=== PATIENT | male | born 1930 | race African-American/Black ===

== ENCOUNTER 2018-06-04 11:09 | Inpatient (IN) | payer MEDICAID, MEDICARE ==
[~2018-06-04] VITALS: Ht 185.4 cm; Wt 97.2 kg
[2018-06-04] VITALS (10 sets, daily range): BP systolic 167–211; BP diastolic 44–71
[~2018-06-04 11:09] MED LIST: AMLODIPINE BESY10 MG ORAL; BENAZEPRIL HCL20 MG ORAL; BETHANECHOL CHL25 MG ORAL; BRIMONIDINE TART5 ML BOTH EYES; DONEPEZIL HCL10 MG ORAL; DOXAZOSIN MESYLA1 MG ORAL; GLIMEPIRIDE4 MG ORAL; KLOR-CON M2020 MEQ ORAL; LEVEMIR100 UNIT/1 SUBQ; LUMIGAN2.5 ML BOTH EYES; METOPROLOL SUCC25 MG ORAL; MIRTAZAPINE7.5 MG ORAL; NEXIUM40 MG ORAL; OMEPRAZOLE20 M2 ORAL; PRANDIN2 MG ORAL; PROSCAR5 MG ORAL; TAMSULOSIN HCL0.4 MG ORAL
[2018-06-04 11:44] LABS: BASOPHILS % (AUTO) 0.9 % (0.0-2.0); EOSINOPHILS % (AUTO) 4.3 % (0.0-3.0); HEMATOCRIT 37.9 % (42.0-52.0); HEMOGLOBIN 12.5 G/DL (14.2-18.0); LYMPHOCYTES % (AUTO) 35.1 % (20.0-45.0); MEAN CORPUSCULAR VOLUME 88 FL (80-99); MONOCYTES % (AUTO) 12.5 % (1.0-10.0); NEUTROPHILS % (AUTO) 47.2 % (45.0-75.0); PLATELET COUNT 200 K/UL (150-450); RED BLOOD COUNT 4.33 M/UL (4.70-6.10); RED CELL DISTRIBUTION WIDTH 11.2 % (11.6-14.8); WHITE BLOOD COUNT 5.3 K/UL (4.8-10.8)
[2018-06-04 12:10] LABS: ANION GAP 8 mmol/L (5-15); BLOOD UREA NITROGEN 15 mg/dL (7-18); CALCIUM 8.7 MG/DL (8.5-10.1); CARBON DIOXIDE 30 MMOL/L (21-32); CHLORIDE 102 MMOL/L (98-107); CREATININE 1.5 MG/DL (0.55-1.30); POTASSIUM 3.8 MMOL/L (3.5-5.1); SODIUM 140 MMOL/L (136-145)
[2018-06-04 12:23] LABS: ALANINE AMINOTRANSFERASE 19 U/L (12-78); ALBUMIN 2.9 G/DL (3.4-5.0); ALBUMIN/GLOBULIN RATIO 0.6 (1.0-2.7); ALKALINE PHOSPHATASE 87 U/L (46-116); ASPARTATE AMINO TRANSFERASE 11 U/L (15-37); BILIRUBIN,TOTAL 0.2 MG/DL (0.2-1.0); CKMB 1.9 NG/ML (0.0-3.6); CREATINE KINASE 166 U/L (26-308)
--- NOTE | 2018-06-04 12:50 | Emergency Room Report ---
History of Present Illness General Chief Complaint: Hypertension Source: Patient, Medical Record, EMS Present Illness HPI Patient present with complaints of mild headache Also reported ear pain Patient was found to be hypertensive and brought to the emergency room Denies any neck pain or photophobia patient does have underlying dementia does limit the history of present illness Currently denies any chest pain denies any vomiting or diarrhea Allergies: Coded Allergies: No Known Allergies (Unverified , 05/27/15) Patient History Limited by: medical condition Past Medical History: see triage record Pertinent Family History: unable to obtain Reviewed Nursing Documentation: PMH: Agreed; PSxH: Agreed Nursing Documentation-PMH Hx Cardiac Problems: Yes Hx Hypertension: Yes Hx Diabetes: Yes Hx Cancer: No Hx Gastrointestinal Problems: No Hx Dialysis: No - Chronic Kidney Disease, UTI Hx Neurological Problems: No Review of Systems All Other Systems: negative except mentioned in HPI Physical Exam Vital Signs Date Time Temp Pulse Resp B/P (MAP) Pulse Ox O2 Delivery O2 Flow Rate FiO2 06/04/18 11:10 98.2 58 16 201/68 97 Room Air Sp02 EP Interpretation: reviewed, normal General Appearance: no apparent distress Head: normocephalic, atraumatic Eyes: bilateral eye PERRL, bilateral eye EOMI ENT: normal pharynx, no angioedema Neck: supple Respiratory: lungs clear, no respiratory distress, no retraction Cardiovascular #1: regular rate, rhythm Gastrointestinal: non tender, soft Genitourinary: no CVA tenderness Musculoskeletal: other - No obvious focal deficit Neurologic: responsive - To verbal and physical stimuli, mild confusion with GCS of 14 Skin: normal color, no rash, other - It was reported by paramedics and possibly the staff that the patient had bedbugs upon pickup I cannot visualize anything here Medical Decision Making Diagnostic Impression: Primary Impression: Hypertensive urgency, malignant ER Course Patient is a fairly complex patient with multiple differential to consideration including but not limited to cardiac cardiopulmonary and vascular emergencies Patient's initial workup is fairly benign blood pressure was addressed in the emergency room Given the patient's malignant presentation and persistent hypertension He will require further inpatient care Labs Test 06/04/18 11:30 06/05/18 05:25 White Blood Count 5.3 K/UL (4.8-10.8) 6.4 K/UL (4.8-10.8) Red Blood Count 4.33 M/UL (4.70-6.10) 4.04 M/UL (4.70-6.10) Hemoglobin 12.5 G/DL (14.2-18.0) 11.6 G/DL (14.2-18.0) Hematocrit 37.9 % (42.0-52.0) 35.0 % (42.0-52.0) Mean Corpuscular Volume 88 FL (80-99) 87 FL (80-99) Mean Corpuscular Hemoglobin 28.9 PG (27.0-31.0) 28.7 PG (27.0-31.0) Mean Corpuscular Hemoglobin Concent 33.1 G/DL (32.0-36.0) 33.1 G/DL (32.0-36.0) Red Cell Distribution Width 11.2 % (11.6-14.8) 11.3 % (11.6-14.8) Platelet Count 200 K/UL (150-450) 196 K/UL (150-450) Mean Platelet Volume 8.8 FL (6.5-10.1) 8.7 FL (6.5-10.1) Neutrophils (%) (Auto) 47.2 % (45.0-75.0) 54.4 % (45.0-75.0) Lymphocytes (%) (Auto) 35.1 % (20.0-45.0) 30.9 % (20.0-45.0) Monocytes (%) (Auto) 12.5 % (1.0-10.0) 10.8 % (1.0-10.0) Eosinophils (%) (Auto) 4.3 % (0.0-3.0) 3.3 % (0.0-3.0) Basophils (%) (Auto) 0.9 % (0.0-2.0) 0.7 % (0.0-2.0) Sodium Level 140 MMOL/L (136-145) 142 MMOL/L (136-145) Potassium Level 3.8 MMOL/L (3.5-5.1) 3.7 MMOL/L (3.5-5.1) Chloride Level 102 MMOL/L (98-107) 106 MMOL/L (98-107) Carbon Dioxide Level 30 MMOL/L (21-32) 30 MMOL/L (21-32) Anion Gap 8 mmol/L (5-15) 6 mmol/L (5-15) Blood Urea Nitrogen 15 mg/dL (7-18) 17 mg/dL (7-18) Creatinine 1.5 MG/DL (0.55-1.30) 1.5 MG/DL (0.55-1.30) Estimat Glomerular Filtration Rate mL/min (>60) mL/min (>60) Glucose Level 272 MG/DL (74-106) 120 MG/DL (74-106) Calcium Level 8.7 MG/DL (8.5-10.1) 8.4 MG/DL (8.5-10.1) Total Bilirubin 0.2 MG/DL (0.2-1.0) 0.2 MG/DL (0.2-1.0) Aspartate Amino Transf (AST/SGOT) 11 U/L (15-37) 12 U/L (15-37) Alanine Aminotransferase (ALT/SGPT) 19 U/L (12-78) 19 U/L (12-78) Alkaline Phosphatase 87 U/L (46-116) 74 U/L (46-116) Total Creatine Kinase 166 U/L (26-308) Creatine Kinase MB 1.9 NG/ML (0.0-3.6) Creatine Kinase MB Relative Index 1.1 Troponin I 0.019 ng/mL (0.000-0.056) Total Protein 8.1 G/DL (6.4-8.2) 7.3 G/DL (6.4-8.2) Albumin 2.9 G/DL (3.4-5.0) 2.7 G/DL (3.4-5.0) Globulin 5.2 g/dL 4.6 g/dL Albumin/Globulin Ratio 0.6 (1.0-2.7) 0.6 (1.0-2.7) Lipase 150 U/L (73-393) C-Reactive Protein, Quantitative 0.6 mg/dL (0.00-0.90) Rhythm Strip Diag. Results EP Interpretation: yes Rate: 67 Rhythm: NSR, no PVC's, no ectopy Last Vital Signs Date Time Temp Pulse Resp B/P (MAP) Pulse Ox O2 Delivery O2 Flow Rate FiO2 06/04/18 12:47 72 200/62 11/20/18 11:15 18 Room Air 06/04/18 11:15 97.1 100 Status: improved Disposition: ADMITTED INPATIENT Condition: Serious Referrals: Aliyah Miller MD (PCP) Aliyah Christianson DO Jun 04, 2018 12:50
[2018-06-04] MEDS ORDERED: cefTRIAXone 1 GM in NS 55 ML IVPB ONE (14:30)
--- NOTE | 2018-06-04 19:00 | Consultation ---
DATE OF CONSULTATION: 06/04/2018 INFECTIOUS DISEASES CONSULTATION CONSULTING PHYSICIAN: Viktor Miranda M.D. PRIMARY ATTENDING PHYSICIAN: Aliyah Miller M.D. REASON FOR CONSULTATION: Mastoiditis, otitis in the right ear. HISTORY OF PRESENT ILLNESS: This is an 88-year-old male admitted today from a group home facility. The patient was transferred to the hospital because of hypertension. The patient does have on and off discharge from right ear. He had a previous admission to the hospital in March 2018. At that time, there was CT scan evidence of right-sided mastoiditis and got treatment for unknown period. In the hospital, he was on Levaquin. 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 PAST MEDICAL HISTORY: Significant for diabetes mellitus, hypertension, chronic kidney disease, BPH, depression. ALLERGIES: No known drug allergies. MEDICATIONS: He got Norvasc in the ER and getting other medication from nursing facility including blood pressure/hypertension medication and insulin. SOCIAL HISTORY: [facility] resident. Single. He states that they had a son who 6 months ago and has another living son. No history of alcohol, drug abuse, or smoking. REVIEW OF SYSTEMS: No fever. No chills. No headache. On and off discharge from right ear. No pain in the ear right now. He seems to have decreased hearing. The patient has no chest pain, no coughing, no shortness of breath. No nausea. No vomiting. No problem passing urine at this time, but wears diapers. The patient usually uses wheelchair and mostly is wheelchair-bound. PHYSICAL EXAMINATION: VITAL SIGNS: Temperature 97.1, pulse 52, blood pressure 182/61. GENERAL APPEARANCE: No acute distress. HEAD AND NECK: [place] conjunctivae. No oral lesion. Some secretion in the right ear. No significant erythema. HEART: Bradycardic. LUNGS: Clear. ABDOMEN: Soft and nontender. EXTREMITIES: He has no edema. NEUROLOGIC: Awake, alert, verbal, obeys commands. No focal signs. Some hearing loss. LABORATORY AND DIAGNOSTIC DATA: WBC 5.3, hemoglobin 12.5, hematocrit 37.9, platelet 200,000. Sodium 140, potassium 3.8, chloride 102, bicarbonate 30, BUN 15, creatinine 1.5, glucose is 202. IMPRESSION: Mastoiditis, seems to be chronic. The patient has no acute symptoms. He has no fever, no leukocytosis. He seems also to have chronic otitis with some secretion. He has hypertension that is not controlled. He has chronic kidney disease, BPH, diabetes mellitus, history of depression. RECOMMENDATIONS: I gave a dose of ceftriaxone in the ER. Get p.o. antibiotic in the floor. Suggest ENT evaluation of further management. At the end of my exam, I thank Dr. Miller for involving me in the care of this patient. Viktor Miranda M.D. DR: Munir JOB#: [id number] CC: BENY
[2018-06-04] MEDS ORDERED: Tamsulosin 0.4mg cap ORAL SCH (21:00)
[2018-06-04] MEDS: Metoprolol 25mg tab ORAL SCH (21:00)
[2018-06-04] MEDS: NovoLOG Insulin Flexpen SUBQ SCH (21:52)
[2018-06-05] VITALS: BP 126/84
[2018-06-05 06:28] LABS: BASOPHILS % (AUTO) 0.7 % (0.0-2.0); EOSINOPHILS % (AUTO) 3.3 % (0.0-3.0); HEMOGLOBIN 11.6 G/DL (14.2-18.0); LYMPHOCYTES % (AUTO) 30.9 % (20.0-45.0); MEAN CORPUSCULAR VOLUME 87 FL (80-99); MONOCYTES % (AUTO) 10.8 % (1.0-10.0); NEUTROPHILS % (AUTO) 54.4 % (45.0-75.0); PLATELET COUNT 196 K/UL (150-450); RED BLOOD COUNT 4.04 M/UL (4.70-6.10); RED CELL DISTRIBUTION WIDTH 11.3 % (11.6-14.8); WHITE BLOOD COUNT 6.4 K/UL (4.8-10.8)
[2018-06-05] MEDS: NovoLOG Insulin Flexpen SUBQ SCH ×4 (06:28→21:36)
[2018-06-05 07:02] LABS: ALANINE AMINOTRANSFERASE 19 U/L (12-78); ALBUMIN 2.7 G/DL (3.4-5.0); ALBUMIN/GLOBULIN RATIO 0.6 (1.0-2.7); ALKALINE PHOSPHATASE 74 U/L (46-116); ANION GAP 6 mmol/L (5-15); ASPARTATE AMINO TRANSFERASE 12 U/L (15-37); BILIRUBIN,TOTAL 0.2 MG/DL (0.2-1.0); BLOOD UREA NITROGEN 17 mg/dL (7-18); CALCIUM 8.4 MG/DL (8.5-10.1); CARBON DIOXIDE 30 MMOL/L (21-32); CHLORIDE 106 MMOL/L (98-107); CREATININE 1.5 MG/DL (0.55-1.30); POTASSIUM 3.7 MMOL/L (3.5-5.1); SODIUM 142 MMOL/L (136-145)
[2018-06-05 08:00] VITALS: BP 185/72
[2018-06-05] MEDS ORDERED: Doxazosin 1mg Tab ORAL SCH (09:00)
[2018-06-05] MEDS ORDERED: Glimepiride 4mg tab ORAL SCH (09:00)
[2018-06-05] MEDS ORDERED: Donepezil 10mg tab ORAL SCH (09:00)
[2018-06-05] MEDS: Augmentin 875mg Tab ORAL SCH ×2 (09:31→21:31)
[2018-06-05] MEDS: Metoprolol 25mg tab ORAL SCH (09:31)
[2018-06-05] MEDS: Brimonidine 0.2% Opth Sol BOTH EYES SCH ×2 (09:31→17:26)
[2018-06-05] MEDS: Bethanechol 25mg Tab ORAL SCH ×3 (09:32→17:24)
--- NOTE | 2018-06-05 11:16 | Consultation ---
Consult Note Consult Note HTN and elevated Cr Patient present with complaints of mild headache Also reported ear pain Patient was found to be hypertensive and brought to the emergency room Denies any neck pain or photophobia patient does have underlying dementia does limit the history of present illness Currently denies any chest pain denies any vomiting or diarrhea No Known Allergies (Unverified , 05/27/15) Hx Cardiac Problems: Yes Hx Hypertension: Yes Hx Diabetes: Yes Hx Dialysis: No - Chronic Kidney Disease, UTI examined data reviewed . Assessment/Plan Diabetic Nephropathy / Renal failure HTN OOC Anemia HypoAlbuminemia Adjust BP meds Watch renal parameters and BS Anemia Rodrigue Kelly MD Jun 05, 2018 11:16
[2018-06-05] MEDS ORDERED: Tamsulosin 0.4mg cap ORAL SCH (11:30)
[2018-06-05] MEDS: Nateglinide 60mg tab ORAL SCH ×2 (11:57→16:57)
[2018-06-05 12:00] VITALS: BP 164/69
--- NOTE | 2018-06-05 12:07 | Infectious Diseases Prog Note ---
Assessment/Plan Assessment/Plan antibiotics : augmentin A 1. sinusitis 2, hypertension 3. diabetes mellitus P 1. continue augmentin 2. will follow up cultures Subjective Constitutional: Denies: fever, chills Respiratory: Denies: shortness of breath, dry cough Gastrointestinal/Abdominal: Denies: nausea, vomiting, diarrhea Musculoskeletal: Reports: pain Allergies: Coded Allergies: No Known Allergies (Unverified , 05/27/15) Objective Vital Signs Last 24 Hour Vital Signs Date Time Temp Pulse Resp B/P (MAP) Pulse Ox O2 Delivery O2 Flow Rate FiO2 06/05/18 09:32 69 185/72 06/05/18 09:31 69 185/72 06/05/18 09:00 Room Air 06/05/18 08:00 98.5 69 20 185/72 (109) 98 06/05/18 07:35 79 06/05/18 04:00 56 06/05/18 00:00 62 06/05/18 00:00 98.3 70 18 126/84 (98) 95 06/04/18 21:00 73 172/67 06/04/18 21:00 Room Air 06/04/18 20:00 72 06/04/18 20:00 98.8 73 20 172/67 (102) 96 06/04/18 17:57 98.4 71 20 178/67 (104) 99 06/04/18 17:56 98.5 71 15 170/51 100 Room Air 06/04/18 17:40 Room Air 06/04/18 16:36 187/57 06/04/18 16:30 63 13 175/50 100 06/04/18 16:00 63 15 187/57 100 Room Air 06/04/18 14:00 54 18 167/44 100 Room Air 06/04/18 13:30 52 19 182/61 99 Room Air 06/04/18 13:00 55 22 191/66 100 Room Air 06/04/18 12:47 72 200/62 06/04/18 12:30 57 19 200/62 100 06/04/18 12:14 185/62 Height (Feet): 6 Height (Inches): 1.00 Weight (Pounds): 214 Respiratory/Chest: lungs clear Cardiovascular: normal rate, regular rhythm, no gallop/murmur Abdomen: soft, non tender Extremities: no edema Microbiology Date/Time Source Procedure Growth Status 06/04/18 11:30 Rectum Received Laboratory Tests Test 06/05/18 05:25 White Blood Count 6.4 K/UL (4.8-10.8) Red Blood Count 4.04 M/UL (4.70-6.10) L Hemoglobin 11.6 G/DL (14.2-18.0) L Hematocrit 35.0 % (42.0-52.0) L Mean Corpuscular Volume 87 FL (80-99) Mean Corpuscular Hemoglobin 28.7 PG (27.0-31.0) Mean Corpuscular Hemoglobin Concent 33.1 G/DL (32.0-36.0) Red Cell Distribution Width 11.3 % (11.6-14.8) L Platelet Count 196 K/UL (150-450) Mean Platelet Volume 8.7 FL (6.5-10.1) Neutrophils (%) (Auto) 54.4 % (45.0-75.0) Lymphocytes (%) (Auto) 30.9 % (20.0-45.0) Monocytes (%) (Auto) 10.8 % (1.0-10.0) H Eosinophils (%) (Auto) 3.3 % (0.0-3.0) H Basophils (%) (Auto) 0.7 % (0.0-2.0) Sodium Level 142 MMOL/L (136-145) Potassium Level 3.7 MMOL/L (3.5-5.1) Chloride Level 106 MMOL/L (98-107) Carbon Dioxide Level 30 MMOL/L (21-32) Anion Gap 6 mmol/L (5-15) Blood Urea Nitrogen 17 mg/dL (7-18) Creatinine 1.5 MG/DL (0.55-1.30) H Estimat Glomerular Filtration Rate mL/min (>60) Glucose Level 120 MG/DL (74-106) #H Calcium Level 8.4 MG/DL (8.5-10.1) L Total Bilirubin 0.2 MG/DL (0.2-1.0) Aspartate Amino Transf (AST/SGOT) 12 U/L (15-37) L Alanine Aminotransferase (ALT/SGPT) 19 U/L (12-78) Alkaline Phosphatase 74 U/L (46-116) C-Reactive Protein, Quantitative 0.6 mg/dL (0.00-0.90) Total Protein 7.3 G/DL (6.4-8.2) Albumin 2.7 G/DL (3.4-5.0) L Globulin 4.6 g/dL Albumin/Globulin Ratio 0.6 (1.0-2.7) L Current Medications Medications (Trade) Dose Ordered Sig/Mayank Route PRN Reason Start Time Stop Time Status Last Admin Dose Admin Amlodipine Besylate (Norvasc) 10 mg DAILY ORAL 06/05/18 09:00 07/05/18 08:59 06/05/18 09:32 Amoxicillin/ Clavulanate Potassium (Augmentin) 875 mg EVERY 12 HOURS ORAL 06/05/18 09:00 06/12/18 08:59 06/05/18 09:31 Bethanechol Chloride (Urecholine) 25 mg THREE TIMES A DAY ORAL 06/05/18 09:00 07/05/18 08:59 06/05/18 09:32 Brimonidine Tartrate (Alphagan) 1 drop BID BOTH EYES 06/05/18 09:00 07/05/18 08:59 06/05/18 09:31 Clonidine HCl (Catapres Tab) 0.1 mg Q4H PRN ORAL SBP>170 mmHg 06/04/18 20:30 07/04/18 20:29 Dextrose (Dextrose 50%) 25 ml Q30M PRN IV Hypoglycemia 06/04/18 20:30 07/04/18 20:29 Dextrose (Dextrose 50%) 50 ml Q30M PRN IV Hypoglycemia 06/04/18 20:30 07/04/18 20:29 Donepezil HCl (Aricept) 10 mg QHS ORAL 06/06/18 21:00 07/05/18 08:59 Finasteride (Proscar) 5 mg DAILY ORAL 06/05/18 09:00 07/05/18 08:59 06/05/18 09:32 Hydralazine HCl (Apresoline) 50 mg Q8HR ORAL 06/05/18 14:00 07/05/18 13:59 Insulin Aspart (NovoLOG) BEFORE MEALS AND HS SUBQ 06/04/18 21:30 07/04/18 21:29 06/05/18 12:02 Metoprolol Tartrate (Lopressor) 12.5 mg Q12HR ORAL 06/05/18 21:00 07/04/18 20:59 Mirtazapine (Remeron) 7.5 mg BEDTIME ORAL 06/04/18 21:00 07/04/18 20:59 06/04/18 21:00 Nateglinide (Starlix) 60 mg TIAC ORAL 06/05/18 11:30 07/05/18 11:29 06/05/18 11:57 Tamsulosin HCl (Flomax) 0.4 mg BID ORAL 06/05/18 18:00 07/05/18 17:59 Tamsulosin HCl (Flomax) 0.4 mg ONCE ORAL 06/05/18 11:30 06/05/18 12:30 06/05/18 11:57 Paras Bustamante MD Jun 05, 2018 12:07
[2018-06-05] MEDS: HydrALAZINE 50mg tab ORAL SCH ×2 (13:26→21:32)
[2018-06-05 16:00] VITALS: BP 172/66
[2018-06-05] MEDS: Tamsulosin 0.4mg cap ORAL SCH (17:24)
[2018-06-05 20:00] VITALS: BP 147/76
[2018-06-05] MEDS: Metoprolol Tartrate 12.5mg TAB ORAL SCH (21:32)
[2018-06-05 23:33] LABS: APPEARANCE,URINE CLEAR; BILIRUBIN, URINE NEGATIVE (NEGATIVE); COLOR,URINE PALE YELLOW; GLUCOSE, URINE (UA) 3+ (NEGATIVE); KETONES,URINE NEGATIVE (NEGATIVE); LEUKOCYTE ESTERASE ,URINE 1+ (NEGATIVE); NITRITE,URINE NEGATIVE (NEGATIVE); PH,URINE 7 (4.5-8.0); PROTEIN,URINE 1+ (NEGATIVE); UROBILINOGEN,URINE NORMAL MG/DL (0.0-1.0)
[2018-06-06] VITALS: BP 151/70
--- NOTE | 2018-06-06 00:29 | History and Physical Report ---
DATE OF ADMISSION: 06/04/2018 NOTE: POOR AUDIO HISTORY OF PRESENT ILLNESS: The patient is admitted to medical floor with hypertensive urgency. The patient admitted to the ER eating. Denies headaches. Denies dizziness. Denies nausea, vomiting, or diarrhea. No fevers or chills. No abdominal pain. No shortness of breath or cough. Has hypertensive urgency and azotemia. PAST MEDICAL HISTORY: NIDDM and hypertension. PAST SURGICAL HISTORY: Denies. ALLERGIES: . MEDICATIONS: . SOCIAL HISTORY: Denies smoking, alcohol, or illicit drug. REVIEW OF SYSTEMS: RESPIRATORY: Denies shortness of breath. Denies cough. CARDIOVASCULAR: Denies chest pain. GASTROINTESTINAL: Denies nausea, vomiting, or diarrhea. EXTREMITIES: . CENTRAL NERVOUS SYSTEM: . PHYSICAL EXAMINATION: VITAL SIGNS: Temperature 97 degrees, pulse is , and blood pressure 180/78. HEENT: PERRLA. NECK: Supple. No lymphadenopathy. CHEST: Clear to auscultation. CARDIOVASCULAR: Irregularly irregular. GASTROINTESTINAL: Soft. Positive bowel sounds. Nontender. EXTREMITIES: No edema. Reflexes on both sides. . ASSESSMENT: Hypertensive urgency and azotemia. I have asked Dr. Viktor Miranda, Dr. Mackenzie, as well as to see the patient with . Also talked to Dr. Mackenzie. Aliyah Miller M.D. DR: CONCHITA JOB#: [id number] CC:
[2018-06-06 04:00] VITALS: BP 143/72
[2018-06-06] MEDS: NovoLOG Insulin Flexpen SUBQ SCH ×4 (06:19→21:08)
[2018-06-06] MEDS: Nateglinide 60mg tab ORAL SCH ×2 (06:19→16:41)
[2018-06-06] MEDS: HydrALAZINE 50mg tab ORAL SCH (06:19)
[2018-06-06 07:16] LABS: BASOPHILS % (AUTO) 0.7 % (0.0-2.0); EOSINOPHILS % (AUTO) 3.6 % (0.0-3.0); HEMATOCRIT 33.5 % (42.0-52.0); HEMOGLOBIN 11.2 G/DL (14.2-18.0); LYMPHOCYTES % (AUTO) 31.4 % (20.0-45.0); MEAN CORPUSCULAR VOLUME 87 FL (80-99); MONOCYTES % (AUTO) 11.2 % (1.0-10.0); NEUTROPHILS % (AUTO) 53.1 % (45.0-75.0); PLATELET COUNT 191 K/UL (150-450); RED BLOOD COUNT 3.86 M/UL (4.70-6.10); RED CELL DISTRIBUTION WIDTH 11.3 % (11.6-14.8); WHITE BLOOD COUNT 5.3 K/UL (4.8-10.8)
[2018-06-06 07:27] LABS: ALANINE AMINOTRANSFERASE 12 U/L (12-78); ALBUMIN 2.5 G/DL (3.4-5.0); ALBUMIN/GLOBULIN RATIO 0.6 (1.0-2.7); ALKALINE PHOSPHATASE 67 U/L (46-116); ANION GAP 7 mmol/L (5-15); ASPARTATE AMINO TRANSFERASE 12 U/L (15-37); BILIRUBIN,TOTAL 0.4 MG/DL (0.2-1.0); BLOOD UREA NITROGEN 17 mg/dL (7-18); CALCIUM 7.9 MG/DL (8.5-10.1); CARBON DIOXIDE 28 MMOL/L (21-32); CHLORIDE 105 MMOL/L (98-107); CHOLESTEROL 140 MG/DL (< 200); CREATINE KINASE 131 U/L (26-308); CREATININE 1.4 MG/DL (0.55-1.30); FERRITIN 32 NG/ML (8-388); GAMMA GLUTAMYL TRANSPEPTIDASE 4 U/L (5-85); HDL CHOLESTEROL 46 MG/DL (40-60); PHOSPHORUS 3.7 MG/DL (2.5-4.9); POTASSIUM 3.7 MMOL/L (3.5-5.1); SODIUM 140 MMOL/L (136-145); TRIGLYCERIDES 75 MG/DL (30-150)
[2018-06-06 07:41] LABS: % IRON SATURATION 56 % (15-50); IRON 130 ug/dL (50-175); TOTAL IRON BINDING CAPACITY 231 ug/dL (250-450)
[2018-06-06 08:00] VITALS: BP 178/72
[2018-06-06] MEDS: Metoprolol Tartrate 12.5mg TAB ORAL SCH (09:04)
[2018-06-06] MEDS: Tamsulosin 0.4mg cap ORAL SCH ×2 (09:04→18:11)
[2018-06-06] MEDS: Bethanechol 25mg Tab ORAL SCH ×3 (09:04→18:11)
[2018-06-06] MEDS: Augmentin 875mg Tab ORAL SCH ×2 (09:04→21:06)
[2018-06-06] MEDS: Brimonidine 0.2% Opth Sol BOTH EYES SCH ×2 (09:05→18:11)
--- NOTE | 2018-06-06 11:44 | Nephrology Progress Note ---
Assessment/Plan Problem List: (1) Hypertensive urgency, malignant (2) Diabetic nephropathy Assessment Diabetic Nephropathy / Renal failure HTN OOC Anemia HypoAlbuminemia Plan Adjust BP meds Watch renal parameters and BS Anemia mckeon Subjective ROS Limited/Unobtainable: No Constitutional: Reports: malaise Objective Objective Last 24 Hour Vital Signs Date Time Temp Pulse Resp B/P (MAP) Pulse Ox O2 Delivery O2 Flow Rate FiO2 06/06/18 09:05 85 178/72 06/06/18 09:04 85 178/72 06/06/18 09:04 178/72 06/06/18 09:00 Room Air 06/06/18 08:00 97.1 85 20 178/72 (107) 97 85 06/06/18 06:19 143/72 06/06/18 04:00 97.0 20 143/72 (95) 97 06/06/18 04:00 68 06/06/18 00:00 97.9 20 151/70 (97) 96 06/06/18 00:00 57 06/05/18 21:32 147/76 06/05/18 21:32 63 147/76 06/05/18 21:00 Room Air 06/05/18 20:00 97.7 63 20 147/76 (99) 97 06/05/18 20:00 63 06/05/18 17:24 172/66 06/05/18 16:00 98.6 63 20 172/66 (101) 96 06/05/18 15:20 62 06/05/18 13:26 164/60 06/05/18 12:00 98.8 60 20 164/69 (100) 98 06/05/18 11:53 58 Intake and Output 06/05/18 06/06/18 19:00 07:00 Intake Total 460 ml Balance 460 ml Intake Oral 460 ml # Voids 4 2 # Bowel Movements 1 Laboratory Tests 06/05/18 23:00: Urine Color Pale yellow, Urine Appearance Clear, Urine pH 7, Urine Specific [place] 1.010, Urine Protein 1+H, Urine Glucose (UA) 3+H, Urine Ketones Negative , Urine Blood Negative, Urine Nitrite Negative, Urine Bilirubin Negative, Urine Urobilinogen Normal, Urine Leukocyte Esterase 1+H, Urine RBC 0-2H, Urine WBC 0-2 , Urine Squamous Epithelial Cells Few, Urine Bacteria Few, Urine Random Sodium 58 06/06/18 04:45: White Blood Count 5.3, Red Blood Count 3.86L, Hemoglobin 11.2L, Hematocrit 33.5L , Mean Corpuscular Volume 87, Mean Corpuscular Hemoglobin 28.9, Mean Corpuscular Hemoglobin Concent 33.3, Red Cell Distribution Width 11.3L, Platelet Count 191, Mean Platelet Volume 9.0, Neutrophils (%) (Auto) 53.1, Lymphocytes (%) (Auto) 31.4, Monocytes (%) (Auto) 11.2H, Eosinophils (%) (Auto) 3.6H, Basophils (%) (Auto) 0.7, Sodium Level 140, Potassium Level 3.7, Chloride Level 105, Carbon Dioxide Level 28, Anion Gap 7, Blood Urea Nitrogen 17, Creatinine 1.4H, Estimat Glomerular Filtration Rate , Glucose Level 185H, Hemoglobin A1c 9.5H, Uric Acid 4.1, Calcium Level 7.9L, Phosphorus Level 3.7, Magnesium Level 1.7L, Iron Level 130, Total Iron Binding Capacity 231L, Percent Iron Saturation 56H, Unsaturated Iron Binding 101L, Ferritin 32, Total Bilirubin 0.4, Gamma Glutamyl Transpeptidase 4L, Aspartate Amino Transf (AST/ SGOT) 12L, Alanine Aminotransferase (ALT/SGPT) 12, Alkaline Phosphatase 67, Total Creatine Kinase 131, Pro-B-Type Natriuretic Peptide 463H, Total Protein 6.8, Albumin 2.5L, Globulin 4.3, Albumin/Globulin Ratio 0.6L, Triglycerides Level 75, Cholesterol Level 140, LDL Cholesterol 87, HDL Cholesterol 46, Cholesterol/HDL Ratio 3.0L, Vitamin B12 Level 374, Folate 16.3, Thyroid Stimulating Hormone (TSH) 0.873 Height (Feet): 6 Height (Inches): 1.00 Weight (Pounds): 214 General Appearance: no apparent distress Cardiovascular: normal rate Respiratory/Chest: decreased breath sounds Abdomen: soft Objective no change Rodrigue Mackenzie MD Jun 06, 2018 11:44
[2018-06-06 12:00] VITALS: BP 136/103
[2018-06-06] MEDS ORDERED: Nateglinide 60mg tab ORAL SCH (12:30)
--- NOTE | 2018-06-06 13:07 | General Progress Note ---
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 SNOMED: 26929467, 706929353 (3) Hypertension ICD Codes: I10 - Essential (primary) hypertension SNOMED: 07156073 Status: progressing Assessment/Plan no headache no dizzy htn bp improving Subjective ROS Limited/Unobtainable: Yes Allergies: Coded Allergies: No Known Allergies (Unverified , 05/27/15) Objective Last 24 Hour Vital Signs Date Time Temp Pulse Resp B/P (MAP) Pulse Ox O2 Delivery O2 Flow Rate FiO2 06/06/18 12:00 98.1 103 20 136/103 (114) 99 103 06/06/18 09:05 85 178/72 06/06/18 09:04 85 178/72 06/06/18 09:04 178/72 06/06/18 09:00 Room Air 06/06/18 08:00 97.1 85 20 178/72 (107) 97 85 06/06/18 07:50 83 06/06/18 06:19 143/72 06/06/18 04:00 97.0 20 143/72 (95) 97 06/06/18 04:00 68 06/06/18 00:00 97.9 20 151/70 (97) 96 06/06/18 00:00 57 06/05/18 21:32 147/76 06/05/18 21:32 63 147/76 06/05/18 21:00 Room Air 06/05/18 20:00 97.7 63 20 147/76 (99) 97 06/05/18 20:00 63 06/05/18 17:24 172/66 06/05/18 16:00 98.6 63 20 172/66 (101) 96 06/05/18 15:20 62 06/05/18 13:26 164/60 Intake and Output 06/05/18 06/06/18 19:00 07:00 Intake Total 460 ml Balance 460 ml Intake Oral 460 ml # Voids 4 2 # Bowel Movements 1 Laboratory Tests 06/05/18 23:00: Urine Color Pale yellow, Urine Appearance Clear, Urine pH 7, Urine Specific [place] 1.010, Urine Protein 1+H, Urine Glucose (UA) 3+H, Urine Ketones Negative , Urine Blood Negative, Urine Nitrite Negative, Urine Bilirubin Negative, Urine Urobilinogen Normal, Urine Leukocyte Esterase 1+H, Urine RBC 0-2H, Urine WBC 0-2 , Urine Squamous Epithelial Cells Few, Urine Bacteria Few, Urine Random Sodium 58 06/06/18 04:45: White Blood Count 5.3, Red Blood Count 3.86L, Hemoglobin 11.2L, Hematocrit 33.5L , Mean Corpuscular Volume 87, Mean Corpuscular Hemoglobin 28.9, Mean Corpuscular Hemoglobin Concent 33.3, Red Cell Distribution Width 11.3L, Platelet Count 191, Mean Platelet Volume 9.0, Neutrophils (%) (Auto) 53.1, Lymphocytes (%) (Auto) 31.4, Monocytes (%) (Auto) 11.2H, Eosinophils (%) (Auto) 3.6H, Basophils (%) (Auto) 0.7, Sodium Level 140, Potassium Level 3.7, Chloride Level 105, Carbon Dioxide Level 28, Anion Gap 7, Blood Urea Nitrogen 17, Creatinine 1.4H, Estimat Glomerular Filtration Rate , Glucose Level 185H, Hemoglobin A1c 9.5H, Uric Acid 4.1, Calcium Level 7.9L, Phosphorus Level 3.7, Magnesium Level 1.7L, Iron Level 130, Total Iron Binding Capacity 231L, Percent Iron Saturation 56H, Unsaturated Iron Binding 101L, Ferritin 32, Total Bilirubin 0.4, Gamma Glutamyl Transpeptidase 4L, Aspartate Amino Transf (AST/ SGOT) 12L, Alanine Aminotransferase (ALT/SGPT) 12, Alkaline Phosphatase 67, Total Creatine Kinase 131, Pro-B-Type Natriuretic Peptide 463H, Total Protein 6.8, Albumin 2.5L, Globulin 4.3, Albumin/Globulin Ratio 0.6L, Triglycerides Level 75, Cholesterol Level 140, LDL Cholesterol 87, HDL Cholesterol 46, Cholesterol/HDL Ratio 3.0L, Vitamin B12 Level 374, Folate 16.3, Thyroid Stimulating Hormone (TSH) 0.873 Height (Feet): 6 Height (Inches): 1.00 Weight (Pounds): 214 EENT: PERRL/EOMI Neck: supple Cardiovascular: normal rate Respiratory/Chest: lungs clear Aliyah Miller MD Jun 06, 2018 13:07
--- NOTE | 2018-06-06 13:36 | Infectious Diseases Prog Note ---
Assessment/Plan Assessment/Plan A 1. sinusitis, R otitis media 2, hypertension 3. diabetes mellitus 4. CKD P 1. continue Augmentin 2. will follow up cultures Subjective ROS Limited/Unobtainable: No Constitutional: Reports: no symptoms HEENT: Reports: other - slight discharge from R ear Respiratory: Reports: no symptoms Cardiovascular: Reports: no symptoms Gastrointestinal/Abdominal: Reports: no symptoms Genitourinary: Reports: no symptoms Allergies: Coded Allergies: No Known Allergies (Unverified , 05/27/15) Objective Vital Signs Last 24 Hour Vital Signs Date Time Temp Pulse Resp B/P (MAP) Pulse Ox O2 Delivery O2 Flow Rate FiO2 06/06/18 12:00 98.1 103 20 136/103 (114) 99 103 06/06/18 09:05 85 178/72 06/06/18 09:04 85 178/72 06/06/18 09:04 178/72 06/06/18 09:00 Room Air 06/06/18 08:00 97.1 85 20 178/72 (107) 97 85 06/06/18 07:50 83 06/06/18 06:19 143/72 06/06/18 04:00 97.0 20 143/72 (95) 97 06/06/18 04:00 68 06/06/18 00:00 97.9 20 151/70 (97) 96 06/06/18 00:00 57 06/05/18 21:32 147/76 06/05/18 21:32 63 147/76 06/05/18 21:00 Room Air 06/05/18 20:00 97.7 63 20 147/76 (99) 97 06/05/18 20:00 63 06/05/18 17:24 172/66 06/05/18 16:00 98.6 63 20 172/66 (101) 96 06/05/18 15:20 62 Height (Feet): 6 Height (Inches): 1.00 Weight (Pounds): 214 General Appearance: no acute distress HEENT: mucous membranes moist Respiratory/Chest: lungs clear Cardiovascular: normal rate Abdomen: soft, non tender Extremities: no edema Neurologic/Psychiatric: alert, oriented x 3, responsive Microbiology Date/Time Source Procedure Growth Status 06/04/18 11:30 Rectum - Final NO CARBAPENEM-RESISTANT ENTEROBACTERI... Complete 06/04/18 11:30 Rectum VRE Culture - Final NO VANCOMYCIN RESISTANT ENTEROCOCCUS ... Complete Laboratory Tests Test 06/05/18 23:00 06/06/18 04:45 Urine Color Pale yellow Urine Appearance Clear Urine pH 7 (4.5-8.0) Urine Specific [place] 1.010 (1.005-1.035) Urine Protein 1+ (NEGATIVE) H Urine Glucose (UA) 3+ (NEGATIVE) H Urine Ketones Negative (NEGATIVE) Urine Blood Negative (NEGATIVE) Urine Nitrite Negative (NEGATIVE) Urine Bilirubin Negative (NEGATIVE) Urine Urobilinogen Normal MG/DL (0.0-1.0) Urine Leukocyte Esterase 1+ (NEGATIVE) H Urine RBC 0-2 /HPF (0 - 0) H Urine WBC 0-2 /HPF (0 - 0) Urine Squamous Epithelial Cells Few /LPF (NONE/OCC) Urine Bacteria Few /HPF (NONE) Urine Random Sodium 58 mmol/L (20-110) White Blood Count 5.3 K/UL (4.8-10.8) Red Blood Count 3.86 M/UL (4.70-6.10) L Hemoglobin 11.2 G/DL (14.2-18.0) L Hematocrit 33.5 % (42.0-52.0) L Mean Corpuscular Volume 87 FL (80-99) Mean Corpuscular Hemoglobin 28.9 PG (27.0-31.0) Mean Corpuscular Hemoglobin Concent 33.3 G/DL (32.0-36.0) Red Cell Distribution Width 11.3 % (11.6-14.8) L Platelet Count 191 K/UL (150-450) Mean Platelet Volume 9.0 FL (6.5-10.1) Neutrophils (%) (Auto) 53.1 % (45.0-75.0) Lymphocytes (%) (Auto) 31.4 % (20.0-45.0) Monocytes (%) (Auto) 11.2 % (1.0-10.0) H Eosinophils (%) (Auto) 3.6 % (0.0-3.0) H Basophils (%) (Auto) 0.7 % (0.0-2.0) Sodium Level 140 MMOL/L (136-145) Potassium Level 3.7 MMOL/L (3.5-5.1) Chloride Level 105 MMOL/L (98-107) Carbon Dioxide Level 28 MMOL/L (21-32) Anion Gap 7 mmol/L (5-15) Blood Urea Nitrogen 17 mg/dL (7-18) Creatinine 1.4 MG/DL (0.55-1.30) H Estimat Glomerular Filtration Rate mL/min (>60) Glucose Level 185 MG/DL (74-106) H Hemoglobin A1c 9.5 % (4.3-6.0) H Uric Acid 4.1 MG/DL (2.6-7.2) Calcium Level 7.9 MG/DL (8.5-10.1) L Phosphorus Level 3.7 MG/DL (2.5-4.9) Magnesium Level 1.7 MG/DL (1.8-2.4) L Iron Level 130 ug/dL (50-175) Total Iron Binding Capacity 231 ug/dL (250-450) L Percent Iron Saturation 56 % (15-50) H Unsaturated Iron Binding 101 ug/dL (112-346) L Ferritin 32 NG/ML (8-388) Total Bilirubin 0.4 MG/DL (0.2-1.0) Gamma Glutamyl Transpeptidase 4 U/L (5-85) L Aspartate Amino Transf (AST/SGOT) 12 U/L (15-37) L Alanine Aminotransferase (ALT/SGPT) 12 U/L (12-78) Alkaline Phosphatase 67 U/L (46-116) Total Creatine Kinase 131 U/L (26-308) Pro-B-Type Natriuretic Peptide 463 pg/mL (0-125) H Total Protein 6.8 G/DL (6.4-8.2) Albumin 2.5 G/DL (3.4-5.0) L Globulin 4.3 g/dL Albumin/Globulin Ratio 0.6 (1.0-2.7) L Triglycerides Level 75 MG/DL (30-150) Cholesterol Level 140 MG/DL (< 200) LDL Cholesterol 87 mg/dL (<100) HDL Cholesterol 46 MG/DL (40-60) Cholesterol/HDL Ratio 3.0 (3.3-4.4) L Vitamin B12 Level 374 PG/ML (193-986) Folate 16.3 NG/ML (8.6-58.9) Thyroid Stimulating Hormone (TSH) 0.873 uiU/mL (0.358-3.740) Current Medications Medications (Trade) Dose Ordered Sig/Mayank Route PRN Reason Start Time Stop Time Status Last Admin Dose Admin Amlodipine Besylate (Norvasc) 10 mg DAILY ORAL 06/05/18 09:00 07/05/18 08:59 06/06/18 09:05 Amoxicillin/ Clavulanate Potassium (Augmentin) 875 mg EVERY 12 HOURS ORAL 06/05/18 09:00 06/12/18 08:59 06/06/18 09:04 Bethanechol Chloride (Urecholine) 25 mg THREE TIMES A DAY ORAL 06/05/18 09:00 07/05/18 08:59 06/06/18 11:51 Brimonidine Tartrate (Alphagan) 1 drop BID BOTH EYES 06/05/18 09:00 07/05/18 08:59 06/06/18 09:05 Clonidine HCl (Catapres Tab) 0.1 mg Q4H PRN ORAL SBP>170 mmHg 06/04/18 20:30 07/04/18 20:29 06/06/18 09:04 Dextrose (Dextrose 50%) 25 ml Q30M PRN IV Hypoglycemia 06/04/18 20:30 07/04/18 20:29 Dextrose (Dextrose 50%) 50 ml Q30M PRN IV Hypoglycemia 06/04/18 20:30 07/04/18 20:29 Donepezil HCl (Aricept) 10 mg QHS ORAL 06/06/18 21:00 07/05/18 08:59 Finasteride (Proscar) 5 mg DAILY ORAL 06/05/18 09:00 07/05/18 08:59 06/06/18 09:04 Hydralazine HCl (Apresoline) 75 mg Q8HR ORAL 06/06/18 14:00 07/05/18 13:59 Insulin Aspart (NovoLOG) BEFORE MEALS AND HS SUBQ 06/04/18 21:30 07/04/18 21:29 06/06/18 11:47 Metoprolol Tartrate (Lopressor) 25 mg Q12HR ORAL 06/06/18 21:00 07/04/18 20:59 Mirtazapine (Remeron) 7.5 mg BEDTIME ORAL 06/04/18 21:00 07/04/18 20:59 06/05/18 21:32 Nateglinide (Starlix) 120 mg TIAC ORAL 06/06/18 16:30 07/05/18 11:29 Tamsulosin HCl (Flomax) 0.4 mg BID ORAL 06/05/18 18:00 07/05/18 17:59 06/06/18 09:04 Viktor Miranda MD Jun 06, 2018 13:36
[2018-06-06] MEDS: HydrALAZINE 25mg tab ORAL SCH ×2 (14:51→21:10)
[2018-06-06 20:00] VITALS: BP 180/74
[2018-06-06] MEDS: Metoprolol 25mg tab ORAL SCH (21:06)
[2018-06-06] MEDS: Donepezil 10mg tab ORAL SCH (21:06)
[2018-06-07] VITALS (7 sets, daily range): BP systolic 141–169; BP diastolic 56–71
[2018-06-07] MEDS: Nateglinide 60mg tab ORAL SCH ×3 (05:52→17:24)
[2018-06-07] MEDS: HydrALAZINE 25mg tab ORAL SCH ×3 (05:52→20:29)
[2018-06-07] MEDS: NovoLOG Insulin Flexpen SUBQ SCH ×4 (05:54→20:33)
[2018-06-07] MEDS: Augmentin 875mg Tab ORAL SCH ×2 (09:05→20:30)
[2018-06-07] MEDS: Brimonidine 0.2% Opth Sol BOTH EYES SCH ×2 (09:05→17:26)
[2018-06-07] MEDS: Tamsulosin 0.4mg cap ORAL SCH ×2 (09:05→17:26)
[2018-06-07] MEDS: Bethanechol 25mg Tab ORAL SCH ×3 (09:05→17:26)
[2018-06-07] MEDS: Metoprolol 25mg tab ORAL SCH (09:05)
--- NOTE | 2018-06-07 09:51 | Nephrology Progress Note ---
Assessment/Plan Problem List: (1) Hypertensive urgency, malignant (2) Diabetic nephropathy Assessment Diabetic Nephropathy / Renal failure HTN OOC Anemia HypoAlbuminemia Plan Adjust BP meds add zestril- up dose Lopressor and Hydralazine Watch renal parameters and BS Anemia mckeon Subjective ROS Limited/Unobtainable: No Constitutional: Reports: malaise Objective Objective Last 24 Hour Vital Signs Date Time Temp Pulse Resp B/P (MAP) Pulse Ox O2 Delivery O2 Flow Rate FiO2 06/07/18 09:05 92 156/56 06/07/18 09:05 92 156/56 06/07/18 08:00 98.0 92 20 156/56 (89) 95 92 06/07/18 05:52 156/60 06/07/18 04:00 79 06/07/18 04:00 98.1 67 20 156/60 (92) 98 06/07/18 00:00 98.6 73 20 155/63 (93) 97 06/07/18 00:00 73 06/06/18 21:10 180/74 06/06/18 21:06 64 180/74 06/06/18 21:00 Room Air 06/06/18 20:00 98.5 64 20 180/74 (109) 98 06/06/18 20:00 64 06/06/18 15:26 61 06/06/18 14:51 136/103 06/06/18 12:02 58 06/06/18 12:00 98.1 103 20 136/103 (114) 99 103 Intake and Output 06/06/18 06/07/18 19:00 07:00 Intake Total 480 ml 480 ml Balance 480 ml 480 ml Intake Oral 480 ml 480 ml # Voids 2 6 # Bowel Movements 4 Height (Feet): 6 Height (Inches): 1.00 Weight (Pounds): 214 General Appearance: no apparent distress Cardiovascular: regular rhythm Respiratory/Chest: decreased breath sounds Abdomen: soft Objective no change Rodrigue Mackenzie MD Jun 07, 2018 09:51
[2018-06-07] MEDS: Lisinopril 2.5mg tab ORAL SCH (10:31)
--- NOTE | 2018-06-07 10:55 | General Progress Note ---
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 SNOMED: 29509552, 618321310 (3) Hypertension ICD Codes: I10 - Essential (primary) hypertension SNOMED: 14003503 Status: progressing Assessment/Plan dm check sugar afebrile htn bp improving Subjective ROS Limited/Unobtainable: Yes Allergies: Coded Allergies: No Known Allergies (Unverified , 05/27/15) Objective Last 24 Hour Vital Signs Date Time Temp Pulse Resp B/P (MAP) Pulse Ox O2 Delivery O2 Flow Rate FiO2 06/07/18 10:31 156/56 06/07/18 09:05 92 156/56 06/07/18 09:05 92 156/56 06/07/18 08:00 98.0 92 20 156/56 (89) 95 92 06/07/18 05:52 156/60 06/07/18 04:00 79 06/07/18 04:00 98.1 67 20 156/60 (92) 98 06/07/18 00:00 98.6 73 20 155/63 (93) 97 06/07/18 00:00 73 06/06/18 21:10 180/74 06/06/18 21:06 64 180/74 06/06/18 21:00 Room Air 06/06/18 20:00 98.5 64 20 180/74 (109) 98 06/06/18 20:00 64 06/06/18 15:26 61 06/06/18 14:51 136/103 06/06/18 12:02 58 06/06/18 12:00 98.1 103 20 136/103 (114) 99 103 Intake and Output 06/06/18 06/07/18 19:00 07:00 Intake Total 480 ml 480 ml Balance 480 ml 480 ml Intake Oral 480 ml 480 ml # Voids 2 6 # Bowel Movements 4 Height (Feet): 6 Height (Inches): 1.00 Weight (Pounds): 214 Neck: supple Cardiovascular: normal rate Abdomen: soft Aliyah Miller MD Jun 07, 2018 10:55
--- NOTE | 2018-06-07 12:24 | Infectious Diseases Prog Note ---
Assessment/Plan Assessment/Plan A 1. sinusitis, R otitis media 2, hypertension 3. diabetes mellitus 4. CKD P 1. continue Augmentin 2. will follow up cultures Subjective ROS Limited/Unobtainable: No Constitutional: Reports: no symptoms Respiratory: Reports: no symptoms Cardiovascular: Reports: no symptoms Gastrointestinal/Abdominal: Reports: no symptoms Genitourinary: Reports: no symptoms Allergies: Coded Allergies: No Known Allergies (Unverified , 05/27/15) Objective Vital Signs Last 24 Hour Vital Signs Date Time Temp Pulse Resp B/P (MAP) Pulse Ox O2 Delivery O2 Flow Rate FiO2 06/07/18 12:00 98.4 77 16 141/58 (85) 97 77 06/07/18 10:31 156/56 06/07/18 09:05 92 156/56 06/07/18 09:05 92 156/56 06/07/18 09:00 Room Air 06/07/18 08:00 98.0 92 20 156/56 (89) 95 92 06/07/18 07:41 83 06/07/18 05:52 156/60 06/07/18 04:00 79 06/07/18 04:00 98.1 67 20 156/60 (92) 98 06/07/18 00:00 98.6 73 20 155/63 (93) 97 06/07/18 00:00 73 06/06/18 21:10 180/74 06/06/18 21:06 64 180/74 06/06/18 21:00 Room Air 06/06/18 20:00 98.5 64 20 180/74 (109) 98 06/06/18 20:00 64 06/06/18 15:26 61 06/06/18 14:51 136/103 Height (Feet): 6 Height (Inches): 1.00 Weight (Pounds): 214 General Appearance: no acute distress HEENT: mucous membranes moist Respiratory/Chest: lungs clear Cardiovascular: normal rate Abdomen: soft, non tender Extremities: no edema Neurologic/Psychiatric: alert, oriented x 3, responsive Current Medications Medications (Trade) Dose Ordered Sig/Mayank Route PRN Reason Start Time Stop Time Status Last Admin Dose Admin Amlodipine Besylate (Norvasc) 10 mg DAILY ORAL 06/05/18 09:00 07/05/18 08:59 11/23/18 09:05 Amoxicillin/ Clavulanate Potassium (Augmentin) 875 mg EVERY 12 HOURS ORAL 06/05/18 09:00 06/12/18 08:59 06/07/18 09:05 Bethanechol Chloride (Urecholine) 25 mg THREE TIMES A DAY ORAL 06/05/18 09:00 07/05/18 08:59 06/07/18 09:05 Brimonidine Tartrate (Alphagan) 1 drop BID BOTH EYES 06/05/18 09:00 07/05/18 08:59 06/07/18 09:05 Clonidine HCl (Catapres Tab) 0.1 mg Q4H PRN ORAL SBP>170 mmHg 06/04/18 20:30 07/04/18 20:29 06/06/18 09:04 Dextrose (Dextrose 50%) 25 ml Q30M PRN IV Hypoglycemia 06/04/18 20:30 07/04/18 20:29 Dextrose (Dextrose 50%) 50 ml Q30M PRN IV Hypoglycemia 06/04/18 20:30 07/04/18 20:29 Donepezil HCl (Aricept) 10 mg QHS ORAL 06/06/18 21:00 07/05/18 08:59 06/06/18 21:06 Finasteride (Proscar) 5 mg DAILY ORAL 06/05/18 09:00 07/05/18 08:59 06/07/18 09:05 Hydralazine HCl (Apresoline) 75 mg Q8HR ORAL 06/06/18 14:00 07/05/18 13:59 06/07/18 05:52 Insulin Aspart (NovoLOG) BEFORE MEALS AND HS SUBQ 06/04/18 21:30 07/04/18 21:29 06/07/18 12:01 Lisinopril (Zestril) 2.5 mg DAILY ORAL 06/07/18 10:00 07/07/18 09:59 06/07/18 10:31 Metoprolol Tartrate (Lopressor) 50 mg Q12HR ORAL 06/07/18 21:00 07/04/18 20:59 Mirtazapine (Remeron) 7.5 mg BEDTIME ORAL 06/04/18 21:00 07/04/18 20:59 06/06/18 21:05 Nateglinide (Starlix) 120 mg TIAC ORAL 06/06/18 16:30 07/05/18 11:29 06/07/18 11:56 Tamsulosin HCl (Flomax) 0.4 mg BID ORAL 06/05/18 18:00 07/05/18 17:59 06/07/18 09:05 Viktor Miranda MD Jun 07, 2018 12:24
[2018-06-07] MEDS: Metoprolol Tartrate 50mg tab ORAL SCH (20:30)
[2018-06-07] MEDS: Donepezil 10mg tab ORAL SCH (20:36)
[2018-06-08] VITALS (7 sets, daily range): BP systolic 120–174; BP diastolic 56–70
[2018-06-08] MEDS: NovoLOG Insulin Flexpen SUBQ SCH ×4 (06:15→21:29)
[2018-06-08] MEDS: HydrALAZINE 25mg tab ORAL SCH ×3 (06:16→21:25)
[2018-06-08] MEDS: Nateglinide 60mg tab ORAL SCH ×3 (06:16→16:50)
[2018-06-08] MEDS: Bethanechol 25mg Tab ORAL SCH ×3 (08:36→16:52)
[2018-06-08] MEDS: Augmentin 875mg Tab ORAL SCH ×2 (08:36→21:26)
[2018-06-08] MEDS: Tamsulosin 0.4mg cap ORAL SCH ×2 (08:36→16:52)
[2018-06-08] MEDS: Metoprolol Tartrate 50mg tab ORAL SCH ×2 (08:38→21:25)
[2018-06-08] MEDS: Lisinopril 2.5mg tab ORAL SCH (08:39)
[2018-06-08] MEDS: Brimonidine 0.2% Opth Sol BOTH EYES SCH ×2 (08:39→16:52)
[2018-06-08] MEDS ORDERED: Lisinopril 10mg tab ORAL SCH (11:30)
--- NOTE | 2018-06-08 11:42 | Nephrology Progress Note ---
Assessment/Plan Problem List: (1) Hypertensive urgency, malignant (2) Diabetic nephropathy Assessment Diabetic Nephropathy / Renal failure HTN OOC Anemia HypoAlbuminemia Plan Adjust BP meds add zestril- up dose Lopressor and Hydralazine Watch renal parameters and BS Anemia mckeon Subjective ROS Limited/Unobtainable: No Objective Objective Last 24 Hour Vital Signs Date Time Temp Pulse Resp B/P (MAP) Pulse Ox O2 Delivery O2 Flow Rate FiO2 06/08/18 09:00 Room Air 06/08/18 08:39 174/62 06/08/18 08:38 89 174/62 06/08/18 08:38 174/62 06/08/18 08:37 89 174/62 06/08/18 08:00 98.0 89 18 174/62 (99) 98 89 06/08/18 07:53 89 06/08/18 06:16 120/60 06/08/18 04:00 63 06/08/18 04:00 96.9 75 18 120/60 (80) 97 75 06/08/18 00:00 97.3 76 19 132/68 (89) 97 75 06/08/18 00:00 65 06/07/18 21:00 Room Air 06/07/18 20:30 78 169/71 06/07/18 20:29 169/71 06/07/18 20:25 78 169/71 (103) 06/07/18 20:00 79 06/07/18 20:00 96.6 80 18 145/61 (89) 96 75 06/07/18 16:00 98.0 75 20 164/71 (102) 97 75 06/07/18 15:41 88 06/07/18 13:26 141/58 06/07/18 12:00 98.4 77 16 141/58 (85) 97 77 Intake and Output 06/07/18 06/08/18 19:00 07:00 Intake Total 360 ml Output Total 200 ml Balance 160 ml Intake Oral 360 ml Output Urine Total 200 ml # Voids 2 2 Height (Feet): 6 Height (Inches): 1.00 Weight (Pounds): 214 General Appearance: no apparent distress Objective no change Rodrigue Mackenzie MD Jun 08, 2018 11:42
--- NOTE | 2018-06-08 16:25 | General Progress Note ---
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 SNOMED: 77248641, 149392144 (3) Hypertension ICD Codes: I10 - Essential (primary) hypertension SNOMED: 48742225 Status: progressing Assessment/Plan dm check sugar afebrile htn bp improving ear discharge and pain consulted dr lobo Subjective ROS Limited/Unobtainable: Yes Allergies: Coded Allergies: No Known Allergies (Unverified , 05/27/15) Objective Last 24 Hour Vital Signs Date Time Temp Pulse Resp B/P (MAP) Pulse Ox O2 Delivery O2 Flow Rate FiO2 06/08/18 13:50 136/56 06/08/18 12:00 98.3 61 18 136/56 (82) 98 61 06/08/18 11:57 136/56 06/08/18 11:52 57 06/08/18 09:00 Room Air 06/08/18 08:39 174/62 06/08/18 08:38 89 174/62 06/08/18 08:38 174/62 06/08/18 08:37 89 174/62 06/08/18 08:00 98.0 89 18 174/62 (99) 98 89 06/08/18 07:53 89 06/08/18 06:16 120/60 06/08/18 04:00 63 06/08/18 04:00 96.9 75 18 120/60 (80) 97 75 06/08/18 00:00 97.3 76 19 132/68 (89) 97 75 06/08/18 00:00 65 06/07/18 21:00 Room Air 06/07/18 20:30 78 169/71 06/07/18 20:29 169/71 06/07/18 20:25 78 169/71 (103) 06/07/18 20:00 79 06/07/18 20:00 96.6 80 18 145/61 (89) 96 75 Intake and Output 06/07/18 06/08/18 19:00 07:00 Intake Total 360 ml Output Total 200 ml Balance 160 ml Intake Oral 360 ml Output Urine Total 200 ml # Voids 2 2 Laboratory Tests 06/08/18 11:35: C-Reactive Protein, Quantitative 0.5 Height (Feet): 6 Height (Inches): 1.00 Weight (Pounds): 214 EENT: other Aliyah Miller MD Jun 08, 2018 16:25
[2018-06-08] MEDS: Donepezil 10mg tab ORAL SCH (21:25)
[2018-06-09 04:00] VITALS: BP 159/65
[2018-06-09 05:40] LABS: BASOPHILS % (AUTO) 0.8 % (0.0-2.0); EOSINOPHILS % (AUTO) 3.7 % (0.0-3.0); HEMOGLOBIN 12.5 G/DL (14.2-18.0); LYMPHOCYTES % (AUTO) 28.1 % (20.0-45.0); MEAN CORPUSCULAR VOLUME 88 FL (80-99); MONOCYTES % (AUTO) 12.2 % (1.0-10.0); NEUTROPHILS % (AUTO) 55.2 % (45.0-75.0); PLATELET COUNT 206 K/UL (150-450); RED BLOOD COUNT 4.31 M/UL (4.70-6.10); RED CELL DISTRIBUTION WIDTH 11.6 % (11.6-14.8); WHITE BLOOD COUNT 6.6 K/UL (4.8-10.8)
[2018-06-09 05:57] LABS: ALANINE AMINOTRANSFERASE 16 U/L (12-78); ALBUMIN 2.8 G/DL (3.4-5.0); ALBUMIN/GLOBULIN RATIO 0.6 (1.0-2.7); ALKALINE PHOSPHATASE 75 U/L (46-116); ANION GAP 7 mmol/L (5-15); ASPARTATE AMINO TRANSFERASE 12 U/L (15-37); BILIRUBIN,TOTAL 0.4 MG/DL (0.2-1.0); BLOOD UREA NITROGEN 18 mg/dL (7-18); CALCIUM 8.6 MG/DL (8.5-10.1); CARBON DIOXIDE 26 MMOL/L (21-32); CHLORIDE 104 MMOL/L (98-107); CREATININE 1.6 MG/DL (0.55-1.30); PHOSPHORUS 4.1 MG/DL (2.5-4.9); SODIUM 137 MMOL/L (136-145)
[2018-06-09] MEDS: Nateglinide 60mg tab ORAL SCH ×3 (06:15→16:59)
[2018-06-09] MEDS: HydrALAZINE 25mg tab ORAL SCH ×3 (06:16→23:30)
[2018-06-09] MEDS: NovoLOG Insulin Flexpen SUBQ SCH ×4 (06:17→20:36)
[2018-06-09 08:00] VITALS: BP 120/71
[2018-06-09] MEDS: Bethanechol 25mg Tab ORAL SCH ×3 (08:35→17:01)
[2018-06-09] MEDS: Augmentin 875mg Tab ORAL SCH ×2 (08:35→20:34)
[2018-06-09] MEDS: Tamsulosin 0.4mg cap ORAL SCH ×2 (08:36→17:01)
[2018-06-09] MEDS: Lisinopril 10mg tab ORAL SCH (08:37)
[2018-06-09] MEDS: Metoprolol Tartrate 50mg tab ORAL SCH ×2 (08:37→20:35)
[2018-06-09] MEDS: Brimonidine 0.2% Opth Sol BOTH EYES SCH ×2 (08:38→17:01)
--- NOTE | 2018-06-09 09:39 | Consultation ---
Consult Note Consult Note HEMATOLOGY-ONCOLOGY CONSULTATION REFERRING PHYSICIAN: Aliyah Miller REASON FOR CONSULT: Anemia DATE OF CONSULT: 06/09/2018 HISTORY OF PRESENT ILLNESS: 88-year-old male admitted today from a halfway facility. The patient was transferred to the hospital because of hypertension. The patient does have on and off discharge from right ear. He had a previous admission to the hospital in March 2018. At that time, there was CT scan evidence of right-sided mastoiditis and got treatment for unknown period. In the hospital, he was on Levaquin. Hematology services consulted for the evaluation of anemia. Current hgb at 12, no w/u required at this time. PAST MEDICAL HISTORY: Significant for diabetes mellitus, hypertension, chronic kidney disease, BPH, depression. PAST SURGICAL HISTORY: Unknown ALLERGIES: No known drug allergies. MEDICATIONS: He got Norvasc in the ER and getting other medication from nursing facility including blood pressure/hypertension medication and insulin. SOCIAL HISTORY: residential resident. Single. He states that they had a son who 6 months ago and has another living son. No history of alcohol , drug abuse, or smoking. FAMILY HISTORY: Noncontributory REVIEW OF SYSTEMS: No fever. No chills. No headache. On and off discharge from right ear. No pain in the ear right now. He seems to have decreased hearing. The patient has no chest pain, no coughing, no shortness of breath. No nausea. No vomiting. No problem passing urine at this time, but wears diapers. The patient usually uses wheelchair and mostly is wheelchair-bound. PHYSICAL EXAMINATION: VITAL SIGNS: Have been reviewed GENERAL APPEARANCE: No acute distress. HEAD AND NECK: [place] conjunctivae. No oral lesion. Some secretion in the right ear. No significant erythema. HEART: Bradycardic. LUNGS: Clear. ABDOMEN: Soft and nontender. EXTREMITIES: He has no edema. NEUROLOGIC: Awake, alert, verbal, obeys commands. No focal signs. Some hearing loss. LABORATORY AND DIAGNOSTIC DATA: WBC 5.3, hemoglobin 12.5, hematocrit 37.9, platelet 200,000. Sodium 140, potassium 3.8, chloride 102, bicarbonate 30, BUN 15, creatinine 1.5, glucose is 202. 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 Ferritin of 32 --> Current Hgb >12, no w/u required at this time. --> Cont to monitor for stability. 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 --> ID is following, appreciate recs. # HTN. Cont BP meds. # DM. A1C goal less than 7. --> Cont to monitor BS levels --> Cont on insulin # MISAEL per renal GREATLY APPRECIATE CONSULTATION. Cesar Singh MD Jun 09, 2018 09:39
[2018-06-09 12:00] VITALS: BP 127/66
--- NOTE | 2018-06-09 12:59 | Nephrology Progress Note ---
Assessment/Plan Problem List: (1) Hypertensive urgency, malignant (2) Diabetic nephropathy Assessment Diabetic Nephropathy / Renal failure HTN OOC Anemia HypoAlbuminemia Plan Adjust BP meds add zestril- up dose Lopressor and Hydralazine Watch renal parameters and BS Anemia mckeon Subjective ROS Limited/Unobtainable: No Objective Objective Last 24 Hour Vital Signs Date Time Temp Pulse Resp B/P (MAP) Pulse Ox O2 Delivery O2 Flow Rate FiO2 06/09/18 12:00 97.5 55 20 127/66 (86) 96 55 06/09/18 09:00 Room Air 06/09/18 08:37 75 120/71 06/09/18 08:37 120/71 06/09/18 08:36 75 120/71 06/09/18 08:06 74 06/09/18 08:00 97.5 75 20 120/71 (87) 97 75 06/09/18 06:16 159/65 06/09/18 04:00 63 06/09/18 04:00 98.5 66 20 159/65 (96) 96 66 06/09/18 00:00 58 06/08/18 23:54 98.7 57 20 128/70 (89) 96 57 06/08/18 21:25 69 146/64 06/08/18 21:25 146/64 06/08/18 21:00 Room Air 06/08/18 20:00 98.4 69 20 146/64 (91) 96 69 06/08/18 20:00 63 06/08/18 16:00 97.9 63 18 124/61 (82) 98 63 06/08/18 15:40 59 06/08/18 13:50 136/56 Intake and Output 06/08/18 06/09/18 19:00 07:00 Intake Total 450 ml Output Total 300 ml Balance 150 ml Intake Oral 450 ml Output Urine Total 300 ml # Voids 3 2 # Bowel Movements 1 Laboratory Tests 06/09/18 05:00: White Blood Count 6.6, Red Blood Count 4.31L, Hemoglobin 12.5L, Hematocrit 38.0L , Mean Corpuscular Volume 88, Mean Corpuscular Hemoglobin 29.0, Mean Corpuscular Hemoglobin Concent 32.9, Red Cell Distribution Width 11.6, Platelet Count 206, Mean Platelet Volume 8.8, Neutrophils (%) (Auto) 55.2, Lymphocytes (% ) (Auto) 28.1, Monocytes (%) (Auto) 12.2H, Eosinophils (%) (Auto) 3.7H, Basophils (%) (Auto) 0.8, Sodium Level 137, Potassium Level 4.0, Chloride Level 104, Carbon Dioxide Level 26, Anion Gap 7, Blood Urea Nitrogen 18, Creatinine 1.6H, Estimat Glomerular Filtration Rate , Glucose Level 240H, Uric Acid 4.3, Calcium Level 8.6, Phosphorus Level 4.1, Magnesium Level 1.8, Total Bilirubin 0.4, Aspartate Amino Transf (AST/SGOT) 12L, Alanine Aminotransferase (ALT/SGPT) 16, Alkaline Phosphatase 75, Pro-B-Type Natriuretic Peptide 354H, Total Protein 7.7, Albumin 2.8L, Globulin 4.9, Albumin/Globulin Ratio 0.6L Height (Feet): 6 Height (Inches): 1.00 Weight (Pounds): 214 General Appearance: no apparent distress Objective no change Rodrigue Mackenzie MD Jun 09, 2018 12:58
--- NOTE | 2018-06-09 13:41 | Infectious Diseases Prog Note ---
Assessment/Plan Assessment/Plan A 1. sinusitis, R otitis media 2, hypertension 3. diabetes mellitus 4. CKD P 1. continue Augmentin 2. will follow up cultures Subjective ROS Limited/Unobtainable: No Constitutional: Reports: no symptoms HEENT: Reports: other - right ear discharge decreased Respiratory: Reports: no symptoms Cardiovascular: Reports: no symptoms Gastrointestinal/Abdominal: Reports: no symptoms Genitourinary: Reports: no symptoms Allergies: Coded Allergies: No Known Allergies (Unverified , 05/27/15) Objective Vital Signs Last 24 Hour Vital Signs Date Time Temp Pulse Resp B/P (MAP) Pulse Ox O2 Delivery O2 Flow Rate FiO2 06/09/18 12:00 97.5 55 20 127/66 (86) 96 55 06/09/18 09:00 Room Air 06/09/18 08:37 75 120/71 06/09/18 08:37 120/71 06/09/18 08:36 75 120/71 06/09/18 08:06 74 06/09/18 08:00 97.5 75 20 120/71 (87) 97 75 06/09/18 06:16 159/65 06/09/18 04:00 63 06/09/18 04:00 98.5 66 20 159/65 (96) 96 66 06/09/18 00:00 58 06/08/18 23:54 98.7 57 20 128/70 (89) 96 57 06/08/18 21:25 69 146/64 06/08/18 21:25 146/64 06/08/18 21:00 Room Air 06/08/18 20:00 98.4 69 20 146/64 (91) 96 69 06/08/18 20:00 63 06/08/18 16:00 97.9 63 18 124/61 (82) 98 63 06/08/18 15:40 59 06/08/18 13:50 136/56 Height (Feet): 6 Height (Inches): 1.00 Weight (Pounds): 214 General Appearance: no acute distress HEENT: mucous membranes moist Respiratory/Chest: lungs clear Cardiovascular: normal rate Abdomen: soft, non tender Extremities: no edema Neurologic/Psychiatric: alert, oriented x 3, responsive Laboratory Tests Test 06/09/18 05:00 White Blood Count 6.6 K/UL (4.8-10.8) Red Blood Count 4.31 M/UL (4.70-6.10) L Hemoglobin 12.5 G/DL (14.2-18.0) L Hematocrit 38.0 % (42.0-52.0) L Mean Corpuscular Volume 88 FL (80-99) Mean Corpuscular Hemoglobin 29.0 PG (27.0-31.0) Mean Corpuscular Hemoglobin Concent 32.9 G/DL (32.0-36.0) Red Cell Distribution Width 11.6 % (11.6-14.8) Platelet Count 206 K/UL (150-450) Mean Platelet Volume 8.8 FL (6.5-10.1) Neutrophils (%) (Auto) 55.2 % (45.0-75.0) Lymphocytes (%) (Auto) 28.1 % (20.0-45.0) Monocytes (%) (Auto) 12.2 % (1.0-10.0) H Eosinophils (%) (Auto) 3.7 % (0.0-3.0) H Basophils (%) (Auto) 0.8 % (0.0-2.0) Sodium Level 137 MMOL/L (136-145) Potassium Level 4.0 MMOL/L (3.5-5.1) Chloride Level 104 MMOL/L (98-107) Carbon Dioxide Level 26 MMOL/L (21-32) Anion Gap 7 mmol/L (5-15) Blood Urea Nitrogen 18 mg/dL (7-18) Creatinine 1.6 MG/DL (0.55-1.30) H Estimat Glomerular Filtration Rate mL/min (>60) Glucose Level 240 MG/DL (74-106) H Uric Acid 4.3 MG/DL (2.6-7.2) Calcium Level 8.6 MG/DL (8.5-10.1) Phosphorus Level 4.1 MG/DL (2.5-4.9) Magnesium Level 1.8 MG/DL (1.8-2.4) Total Bilirubin 0.4 MG/DL (0.2-1.0) Aspartate Amino Transf (AST/SGOT) 12 U/L (15-37) L Alanine Aminotransferase (ALT/SGPT) 16 U/L (12-78) Alkaline Phosphatase 75 U/L (46-116) Pro-B-Type Natriuretic Peptide 354 pg/mL (0-125) H Total Protein 7.7 G/DL (6.4-8.2) Albumin 2.8 G/DL (3.4-5.0) L Globulin 4.9 g/dL Albumin/Globulin Ratio 0.6 (1.0-2.7) L Current Medications Medications (Trade) Dose Ordered Sig/Mayank Route PRN Reason Start Time Stop Time Status Last Admin Dose Admin Amlodipine Besylate (Norvasc) 10 mg DAILY ORAL 06/05/18 09:00 07/05/18 08:59 06/09/18 08:36 Amoxicillin/ Clavulanate Potassium (Augmentin) 875 mg EVERY 12 HOURS ORAL 06/05/18 09:00 06/12/18 08:59 06/09/18 08:35 Bethanechol Chloride (Urecholine) 25 mg THREE TIMES A DAY ORAL 06/05/18 09:00 07/05/18 08:59 06/09/18 12:06 Brimonidine Tartrate (Alphagan) 1 drop BID BOTH EYES 06/05/18 09:00 07/05/18 08:59 06/09/18 08:38 Clonidine HCl (Catapres Tab) 0.1 mg Q4H PRN ORAL SBP>170 mmHg 06/04/18 20:30 07/04/18 20:29 06/08/18 08:38 Dextrose (Dextrose 50%) 25 ml Q30M PRN IV Hypoglycemia 06/04/18 20:30 07/04/18 20:29 Dextrose (Dextrose 50%) 50 ml Q30M PRN IV Hypoglycemia 06/04/18 20:30 07/04/18 20:29 Donepezil HCl (Aricept) 10 mg QHS ORAL 06/06/18 21:00 07/05/18 08:59 06/08/18 21:25 Finasteride (Proscar) 5 mg DAILY ORAL 06/05/18 09:00 07/05/18 08:59 06/09/18 08:36 Hydralazine HCl (Apresoline) 75 mg Q8HR ORAL 06/06/18 14:00 07/05/18 13:59 06/09/18 06:16 Insulin Aspart (NovoLOG) BEFORE MEALS AND HS SUBQ 06/04/18 21:30 07/04/18 21:29 06/09/18 11:37 Lisinopril (Zestril) 10 mg DAILY ORAL 06/09/18 09:00 07/09/18 08:59 06/09/18 08:37 Metoprolol Tartrate (Lopressor) 75 mg Q12HR ORAL 06/08/18 21:00 07/04/18 20:59 06/09/18 08:37 Mirtazapine (Remeron) 7.5 mg BEDTIME ORAL 06/04/18 21:00 07/04/18 20:59 06/08/18 21:26 Nateglinide (Starlix) 120 mg TIAC ORAL 06/06/18 16:30 07/05/18 11:29 06/09/18 11:35 Tamsulosin HCl (Flomax) 0.4 mg BID ORAL 06/05/18 18:00 07/05/18 17:59 06/09/18 08:36 Viktor Miranda MD Jun 09, 2018 13:40
[2018-06-09 16:00] VITALS: BP 146/67
[2018-06-09 20:00] VITALS: BP 139/57
[2018-06-09] MEDS: Donepezil 10mg tab ORAL SCH (20:34)
[2018-06-10] VITALS: BP 144/64
[2018-06-10] MEDS: HydrALAZINE 25mg tab ORAL SCH ×3 (05:54→22:10)
[2018-06-10] MEDS: Nateglinide 60mg tab ORAL SCH ×3 (05:55→16:23)
[2018-06-10] MEDS: NovoLOG Insulin Flexpen SUBQ SCH ×4 (05:58→20:50)
--- NOTE | 2018-06-10 06:28 | General Progress Note ---
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 Ferritin of 32 --> Current Hgb is lower, reviewed anemia panel and c/w fay --> Cont to monitor for stability --> will consider to begin iron if hgb <11 # Monocytosis likely related to infection and reactive ==> on augmentin as per ID --> appreciate ID recs # Mastoiditis, seems to be chronic. --> ID is following, appreciate recs. # HTN. Cont BP meds. # DM. A1C goal less than 7. --> Cont to monitor BS levels --> Cont on insulin # MISAEL per renal GREATLY APPRECIATE CONSULTATION. Subjective Constitutional: Denies: no symptoms, chills, diaphoresis, fever, malaise, weakness, other HEENT: Denies: no symptoms, eye pain, blurred vision, tearing, double vision, ear pain, ear discharge, nose pain, nose congestion, throat pain, throat swelling, mouth pain, mouth swelling, other Cardiovascular: Denies: no symptoms, chest pain, edema, irregular heart rate, lightheadedness, palpitations, syncope, other Respiratory: Denies: no symptoms, cough, orthopnea, shortness of breath, SOB with excertion, SOB at rest, sputum, stridor, wheezing, other Gastrointestinal/Abdominal: Denies: no symptoms, abdomen distended, abdominal pain, black stools, tarry stools, blood in stool, constipated, diarrhea, difficulty swallowing, nausea, poor appetite, poor fluid intake, rectal bleeding , vomiting, other Genitourinary: Denies: no symptoms, burning, discharge, frequency, flank pain, hematuria, incontinence, pain, urgency, other Neurologic/Psychiatric: Denies: no symptoms, anxiety, depressed, emotional problems, headache, numbness, paresthesia, pre-existing deficit, seizure, tingling, tremors, weakness, other Endocrine: Denies: no symptoms, excessive sweating, flushing, intolerance to cold, intolerance to heat, increased hunger, increased thirst, increased urine, unexplained weight gain, unexplained weight loss, other Allergies: Coded Allergies: No Known Allergies (Unverified , 05/27/15) Subjective reviewed, with IV line, no complaints, per patient bed bugs are better Objective Last 24 Hour Vital Signs Date Time Temp Pulse Resp B/P (MAP) Pulse Ox O2 Delivery O2 Flow Rate FiO2 06/10/18 05:54 159/65 06/10/18 04:00 83 06/10/18 00:00 64 06/10/18 00:00 98.0 64 20 144/64 (90) 100 64 06/09/18 23:30 139/57 06/09/18 21:00 Room Air 06/09/18 20:35 59 139/57 06/09/18 20:00 97.9 59 24 139/57 (84) 98 59 06/09/18 20:00 64 06/09/18 16:00 97.2 55 22 146/67 (93) 97 55 06/09/18 15:41 57 06/09/18 14:00 127/66 06/09/18 12:00 97.5 55 20 127/66 (86) 96 55 06/09/18 11:55 52 06/09/18 09:00 Room Air 06/09/18 08:37 75 120/71 06/09/18 08:37 120/71 06/09/18 08:36 75 120/71 06/09/18 08:06 74 06/09/18 08:00 97.5 75 20 120/71 (87) 97 75 Intake and Output 06/09/18 06/10/18 19:00 07:00 Intake Total 300 ml Output Total 300 ml Balance 0 ml Intake Oral 300 ml Output Urine Total 300 ml Height (Feet): 6 Height (Inches): 1.00 Weight (Pounds): 214 Objective VITAL SIGNS: Have been reviewed GENERAL APPEARANCE: No acute distress. HEAD AND NECK: [place] conjunctivae. No oral lesion. Some secretion in the right ear. No significant erythema. HEART: Bradycardic. LUNGS: Clear. ABDOMEN: Soft and nontender. EXTREMITIES: He has no edema. NEUROLOGIC: Awake, alert, verbal, obeys commands. No focal signs. Some hearing loss. Cesar Singh MD Jun 10, 2018 06:28
[2018-06-10 08:00] VITALS: BP 152/66
[2018-06-10] MEDS: Tamsulosin 0.4mg cap ORAL SCH ×2 (08:28→17:25)
[2018-06-10] MEDS: Bethanechol 25mg Tab ORAL SCH ×3 (08:28→17:25)
[2018-06-10] MEDS: Augmentin 875mg Tab ORAL SCH ×2 (08:28→20:49)
[2018-06-10] MEDS: Metoprolol Tartrate 50mg tab ORAL SCH ×2 (08:29→20:51)
[2018-06-10] MEDS: Lisinopril 10mg tab ORAL SCH (08:29)
[2018-06-10] MEDS: Brimonidine 0.2% Opth Sol BOTH EYES SCH ×2 (08:49→17:25)
--- NOTE | 2018-06-10 10:40 | General Progress Note ---
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 SNOMED: 34066938, 275896456 (3) Hypertension ICD Codes: I10 - Essential (primary) hypertension SNOMED: 48033012 Status: progressing Assessment/Plan dm afebrile htn bp improving ear discharge and pain await dr lobo input check sugar Subjective ROS Limited/Unobtainable: Yes Constitutional: Reports: no symptoms Allergies: Coded Allergies: No Known Allergies (Unverified , 05/27/15) Objective Last 24 Hour Vital Signs Date Time Temp Pulse Resp B/P (MAP) Pulse Ox O2 Delivery O2 Flow Rate FiO2 06/10/18 08:29 95 152/66 06/10/18 08:29 152/66 06/10/18 08:28 95 152/66 06/10/18 05:54 159/65 06/10/18 04:00 83 06/10/18 00:00 64 06/10/18 00:00 98.0 64 20 144/64 (90) 100 64 06/09/18 23:30 139/57 06/09/18 21:00 Room Air 06/09/18 20:35 59 139/57 06/09/18 20:00 97.9 59 24 139/57 (84) 98 59 06/09/18 20:00 64 06/09/18 16:00 97.2 55 22 146/67 (93) 97 55 06/09/18 15:41 57 06/09/18 14:00 127/66 06/09/18 12:00 97.5 55 20 127/66 (86) 96 55 06/09/18 11:55 52 Intake and Output 06/09/18 06/10/18 19:00 07:00 Intake Total 300 ml Output Total 300 ml Balance 0 ml Intake Oral 300 ml Output Urine Total 300 ml Height (Feet): 6 Height (Inches): 1.00 Weight (Pounds): 214 General Appearance: confused Cardiovascular: normal rate Respiratory/Chest: lungs clear Aliyah Miller MD Jun 10, 2018 10:40
--- NOTE | 2018-06-10 11:39 | Infectious Diseases Prog Note ---
Assessment/Plan Assessment/Plan A 1. sinusitis, R otitis media 2, hypertension 3. diabetes mellitus 4. CKD P 1. continue Augmentin 2. will follow up cultures Subjective ROS Limited/Unobtainable: No Constitutional: Reports: other - feels better HEENT: Reports: other - deareased ear discharge Respiratory: Reports: no symptoms Cardiovascular: Reports: no symptoms Gastrointestinal/Abdominal: Reports: no symptoms Genitourinary: Reports: no symptoms Allergies: Coded Allergies: No Known Allergies (Unverified , 05/27/15) Objective Vital Signs Last 24 Hour Vital Signs Date Time Temp Pulse Resp B/P (MAP) Pulse Ox O2 Delivery O2 Flow Rate FiO2 06/10/18 09:00 Room Air 06/10/18 08:29 95 152/66 06/10/18 08:29 152/66 06/10/18 08:28 95 152/66 06/10/18 08:00 98.2 95 18 152/66 (94) 95 95 06/10/18 05:54 159/65 06/10/18 04:00 83 06/10/18 00:00 64 06/10/18 00:00 98.0 64 20 144/64 (90) 100 64 06/09/18 23:30 139/57 06/09/18 21:00 Room Air 06/09/18 20:35 59 139/57 06/09/18 20:00 97.9 59 24 139/57 (84) 98 59 06/09/18 20:00 64 06/09/18 16:00 97.2 55 22 146/67 (93) 97 55 06/09/18 15:41 57 06/09/18 14:00 127/66 06/09/18 12:00 97.5 55 20 127/66 (86) 96 55 06/09/18 11:55 52 Height (Feet): 6 Height (Inches): 1.00 Weight (Pounds): 214 General Appearance: no acute distress HEENT: mucous membranes moist Respiratory/Chest: lungs clear Cardiovascular: normal rate Abdomen: soft, non tender Extremities: no edema Neurologic/Psychiatric: alert, oriented x 3, responsive Current Medications Medications (Trade) Dose Ordered Sig/Mayank Route PRN Reason Start Time Stop Time Status Last Admin Dose Admin Amlodipine Besylate (Norvasc) 10 mg DAILY ORAL 06/05/18 09:00 07/05/18 08:59 06/10/18 08:28 Amoxicillin/ Clavulanate Potassium (Augmentin) 875 mg EVERY 12 HOURS ORAL 06/05/18 09:00 06/12/18 08:59 06/10/18 08:28 Bethanechol Chloride (Urecholine) 25 mg THREE TIMES A DAY ORAL 06/05/18 09:00 07/05/18 08:59 06/10/18 08:28 Brimonidine Tartrate (Alphagan) 1 drop BID BOTH EYES 06/05/18 09:00 07/05/18 08:59 06/10/18 08:49 Clonidine HCl (Catapres Tab) 0.1 mg Q4H PRN ORAL SBP>170 mmHg 06/04/18 20:30 07/04/18 20:29 06/08/18 08:38 Dextrose (Dextrose 50%) 25 ml Q30M PRN IV Hypoglycemia 06/04/18 20:30 07/04/18 20:29 Dextrose (Dextrose 50%) 50 ml Q30M PRN IV Hypoglycemia 06/04/18 20:30 07/04/18 20:29 Donepezil HCl (Aricept) 10 mg QHS ORAL 06/06/18 21:00 07/05/18 08:59 06/09/18 20:34 Finasteride (Proscar) 5 mg DAILY ORAL 06/05/18 09:00 07/05/18 08:59 06/10/18 08:28 Hydralazine HCl (Apresoline) 75 mg Q8HR ORAL 06/06/18 14:00 07/05/18 13:59 06/10/18 05:54 Insulin Aspart (NovoLOG) BEFORE MEALS AND HS SUBQ 06/04/18 21:30 07/04/18 21:29 06/10/18 05:58 Lisinopril (Zestril) 10 mg DAILY ORAL 06/09/18 09:00 07/09/18 08:59 06/10/18 08:29 Metoprolol Tartrate (Lopressor) 75 mg Q12HR ORAL 06/08/18 21:00 07/04/18 20:59 06/10/18 08:29 Mirtazapine (Remeron) 7.5 mg BEDTIME ORAL 06/04/18 21:00 07/04/18 20:59 06/09/18 20:34 Nateglinide (Starlix) 120 mg TIAC ORAL 06/06/18 16:30 07/05/18 11:29 06/10/18 05:55 Tamsulosin HCl (Flomax) 0.4 mg BID ORAL 06/05/18 18:00 07/05/18 17:59 06/10/18 08:28 Viktor Miranda MD Jun 10, 2018 11:39
[2018-06-10 12:00] VITALS: BP 131/55
--- NOTE | 2018-06-10 15:15 | Nephrology Progress Note ---
Assessment/Plan Problem List: (1) Hypertensive urgency, malignant (2) Diabetic nephropathy Assessment Diabetic Nephropathy / Renal failure HTN OOC Anemia HypoAlbuminemia Plan Adjust BP meds add zestril- up dose Lopressor and Hydralazine Watch renal parameters and BS Anemia mckeon Subjective ROS Limited/Unobtainable: No Objective Objective Last 24 Hour Vital Signs Date Time Temp Pulse Resp B/P (MAP) Pulse Ox O2 Delivery O2 Flow Rate FiO2 06/10/18 13:21 131/55 06/10/18 12:00 66 06/10/18 12:00 97.7 58 18 131/55 (80) 97 58 06/10/18 09:00 Room Air 06/10/18 08:29 95 152/66 06/10/18 08:29 152/66 06/10/18 08:28 95 152/66 06/10/18 08:00 98.2 95 18 152/66 (94) 95 95 06/10/18 08:00 95 06/10/18 05:54 159/65 06/10/18 04:00 83 06/10/18 00:00 64 06/10/18 00:00 98.0 64 20 144/64 (90) 100 64 06/09/18 23:30 139/57 06/09/18 21:00 Room Air 06/09/18 20:35 59 139/57 06/09/18 20:00 97.9 59 24 139/57 (84) 98 59 06/09/18 20:00 64 06/09/18 16:00 97.2 55 22 146/67 (93) 97 55 06/09/18 15:41 57 Intake and Output 06/09/18 06/10/18 19:00 07:00 Intake Total 300 ml Output Total 300 ml Balance 0 ml Intake Oral 300 ml Output Urine Total 300 ml Height (Feet): 6 Height (Inches): 1.00 Weight (Pounds): 214 General Appearance: no apparent distress Objective no change Rodrigue Mackenzie MD Jun 10, 2018 15:15
[2018-06-10 16:00] VITALS: BP 122/51
[2018-06-10 20:00] VITALS: BP 174/83
[2018-06-10] MEDS: Donepezil 10mg tab ORAL SCH (20:50)
--- NOTE | 2018-06-10 23:11 | Consultation ---
History of Present Illness General Chief Complaint: Hypertension Present Illness HPI 88-year-old male admitted today from a long-term facility. The patient was transferred to the hospital because of hypertension. The patient does have on and off discharge from right ear. diff sleeping poor energy and appetite Allergies: Coded Allergies: No Known Allergies (Unverified , 05/27/15) Medication History Scheduled Amlodipine Besylate* (Amlodipine Besylate*), 10 MG ORAL DAILY, (Reported) Amlodipine Besylate* (Amlodipine Besylate*), 10 MG ORAL DAILY, (Reported) Amoxicillin/Potassium Clav 875-125 Mg Tab* (Amox Tr-K Clv 875-125 Mg Tab*), 875 TAB ORAL EVERY 12 HOURS, (Reported) Benazepril Hcl* (Benazepril Hcl*), 20 MG ORAL am, (Reported) Bethanechol Chl* (Bethanechol Chloride*), 25 MG ORAL THREE TIMES A DAY, ( Reported) Bimatoprost (Lumigan), 1 DROP BOTH EYES hs, (Reported) Brimonidine Tartrate* (Alphagan*), 1 DROP BOTH EYES bid, (Reported) Donepezil Hcl* (Donepezil Hcl*), 10 MG ORAL DAILY, (Reported) Doxazosin Mesylate* (Doxazosin Mesylate*), 2 MG ORAL am, (Reported) Esomeprazole Magnesium (Nexium), 40 MG ORAL DAILY, (Reported) Finasteride* (Proscar*), 5 MG ORAL DAILY, (Reported) Glimepiride* (Glimepiride*), 4 MG ORAL daily, (Reported) Insulin Detemir (Levemir), 40 SUBQ daily, (Reported) Metoprolol Succinate* (Metoprolol Succinate*), 25 MG ORAL bid, (Reported) Mirtazapine* (Mirtazapine*), 7.5 MG ORAL BEDTIME, (Reported) Omeprazole (Omeprazole), 20 MG ORAL am, (Reported) Potassium Chloride (Klor-Con M20), 20 MEQ ORAL DAILY, (Reported) Repaglinide (Prandin), 2 MG ORAL THREE TIMES A DAY, (Reported) Tamsulosin Hcl (Tamsulosin Hcl*), 0.4 MG ORAL BEDTIME, (Reported) Tamsulosin Hcl (Tamsulosin Hcl*), 0.4 MG ORAL BEDTIME, (Reported) Patient History Limited by: medical condition History Provided By: Patient, Medical Record Healthcare decision maker Resuscitation status Full Code Advanced Directive on File No Past Medical/Surgical History Past Medical/Surgical History: (1) Hypertensive urgency, malignant (2) TMJ arthralgia (3) Diabetic nephropathy (4) tmj (5) Hypertension (6) Mastoiditis of right side Review of Systems Psychiatric: Reports: prior hx, anxiety, depressed feelings Physical Exam General Appearance: no apparent distress, alert, agitated Last 24 Hour Vital Signs Date Time Temp Pulse Resp B/P (MAP) Pulse Ox O2 Delivery O2 Flow Rate FiO2 06/10/18 22:10 161/65 06/10/18 21:00 Room Air 06/10/18 20:51 81 174/83 06/10/18 20:00 99.2 81 20 174/83 (113) 95 06/10/18 20:00 71 06/10/18 16:00 64 06/10/18 16:00 97.6 80 20 122/51 (74) 96 80 06/10/18 13:21 131/55 06/10/18 12:00 66 06/10/18 12:00 97.7 58 18 131/55 (80) 97 58 06/10/18 09:00 Room Air 06/10/18 08:29 95 152/66 06/10/18 08:29 152/66 06/10/18 08:28 95 152/66 06/10/18 08:00 98.2 95 18 152/66 (94) 95 95 06/10/18 08:00 95 06/10/18 05:54 159/65 06/10/18 04:00 83 06/10/18 00:00 64 06/10/18 00:00 98.0 64 20 144/64 (90) 100 64 06/09/18 23:30 139/57 Intake and Output 06/09/18 06/10/18 19:00 07:00 Intake Total 300 ml Output Total 300 ml Balance 0 ml Intake Oral 300 ml Output Urine Total 300 ml Height (Feet): 6 Height (Inches): 1.00 Weight (Pounds): 214 Medications Current Medications Medications (Trade) Dose Ordered Sig/Mayank Route PRN Reason Start Time Stop Time Status Last Admin Dose Admin Amlodipine Besylate (Norvasc) 10 mg DAILY ORAL 06/05/18 09:00 07/05/18 08:59 06/10/18 08:28 Amoxicillin/ Clavulanate Potassium (Augmentin) 875 mg EVERY 12 HOURS ORAL 06/05/18 09:00 06/12/18 08:59 06/10/18 20:49 Bethanechol Chloride (Urecholine) 25 mg THREE TIMES A DAY ORAL 06/05/18 09:00 07/05/18 08:59 06/10/18 17:25 Brimonidine Tartrate (Alphagan) 1 drop BID BOTH EYES 06/05/18 09:00 07/05/18 08:59 06/10/18 17:25 Clonidine HCl (Catapres Tab) 0.1 mg Q4H PRN ORAL SBP>170 mmHg 06/04/18 20:30 07/04/18 20:29 06/08/18 08:38 Dextrose (Dextrose 50%) 25 ml Q30M PRN IV Hypoglycemia 06/04/18 20:30 07/04/18 20:29 Dextrose (Dextrose 50%) 50 ml Q30M PRN IV Hypoglycemia 06/04/18 20:30 07/04/18 20:29 Donepezil HCl (Aricept) 10 mg QHS ORAL 06/06/18 21:00 07/05/18 08:59 06/10/18 20:50 Finasteride (Proscar) 5 mg DAILY ORAL 06/05/18 09:00 07/05/18 08:59 06/10/18 08:28 Hydralazine HCl (Apresoline) 75 mg Q8HR ORAL 06/06/18 14:00 07/05/18 13:59 06/10/18 22:10 Insulin Aspart (NovoLOG) BEFORE MEALS AND HS SUBQ 06/04/18 21:30 07/04/18 21:29 06/10/18 20:50 Lisinopril (Zestril) 10 mg DAILY ORAL 06/09/18 09:00 07/09/18 08:59 06/10/18 08:29 Metoprolol Tartrate (Lopressor) 75 mg Q12HR ORAL 06/08/18 21:00 07/04/18 20:59 06/10/18 20:51 Mirtazapine (Remeron) 7.5 mg BEDTIME ORAL 06/04/18 21:00 07/04/18 20:59 06/10/18 20:49 Nateglinide (Starlix) 120 mg TIAC ORAL 06/06/18 16:30 07/05/18 11:29 06/10/18 16:23 Tamsulosin HCl (Flomax) 0.4 mg BID ORAL 06/05/18 18:00 07/05/18 17:59 06/10/18 17:25 Assessment/Plan Problem List: (1) MDD (major depressive disorder) ICD Codes: F32.9 - Major depressive disorder, single episode, unspecified SNOMED: 918849341 Assessment/Plan nick provided ro/Alexis Teran MD Jun 10, 2018 23:11
[2018-06-11] VITALS: BP 160/63
[2018-06-11 04:00] VITALS: BP 153/60
[2018-06-11] MEDS: Nateglinide 60mg tab ORAL SCH ×2 (06:10→11:30)
[2018-06-11] MEDS: HydrALAZINE 25mg tab ORAL SCH (06:10)
[2018-06-11] MEDS: NovoLOG Insulin Flexpen SUBQ SCH ×2 (06:11→11:30)
[2018-06-11 08:00] VITALS: BP 154/70
[2018-06-11] MEDS ORDERED: Metoprolol 25mg tab ONE (08:42)
[2018-06-11] MEDS: Brimonidine 0.2% Opth Sol BOTH EYES SCH (08:48)
[2018-06-11] MEDS: Tamsulosin 0.4mg cap ORAL SCH (08:48)
[2018-06-11] MEDS: Lisinopril 10mg tab ORAL SCH (08:48)
[2018-06-11] MEDS: Augmentin 875mg Tab ORAL SCH (08:48)
[2018-06-11] MEDS: Bethanechol 25mg Tab ORAL SCH ×2 (08:48→13:00)
[2018-06-11 08:50] VITALS: BP 154/70
[2018-06-11] MEDS: Metoprolol Tartrate 50mg tab ORAL SCH (08:50)
--- NOTE | 2018-06-11 10:39 | General Progress Note ---
Assessment/Plan Problem List: (1) TMJ arthralgia ICD Codes: M26.629 - Arthralgia of temporomandibular joint, unspecified side SNOMED: 79538686, 624591400 (2) tmj (3) Mastoiditis of right side ICD Codes: H70.91 - Unspecified mastoiditis, right ear SNOMED: 34923812 Assessment/Plan 1. Complete Augmentin treatment-see ENT when out of hospital in about 3-4 weeks to recheck right ear. 2. Pt should see Dentist re teeth grinding. Subjective Date patient seen: Jun 11, 2018 Time patient seen: 10:00 ROS Limited/Unobtainable: No Constitutional: Reports: other - right ear hearing loss and mastoiditis- untreated for 1 year per pt. HEENT: Reports: ear pain - right ear as above Allergies: Coded Allergies: No Known Allergies (Unverified , 05/27/15) Subjective Pt states decreased hearing for 1 year right ear and no treatment. Since in hospital, CT sinus indicates right mastoid disease, put on Augmentin and drainage has stopped, no longer painful and some hearing has returned. This was discussed with me over the weekend-I spoke with PMD with above recs which were done and then when I was back (today) I saw him. Objective Last 24 Hour Vital Signs Date Time Temp Pulse Resp B/P (MAP) Pulse Ox O2 Delivery O2 Flow Rate FiO2 06/11/18 09:00 Room Air 06/11/18 08:50 78 154/70 06/11/18 08:48 154/70 06/11/18 08:48 78 154/70 06/11/18 08:00 76 06/11/18 08:00 98.1 78 22 154/70 (98) 97 06/11/18 06:10 156/58 06/11/18 04:00 98.4 69 20 153/60 (91) 96 06/11/18 04:00 66 06/11/18 00:00 98.9 64 18 160/63 (95) 95 06/11/18 00:00 61 06/10/18 22:10 161/65 06/10/18 21:00 Room Air 06/10/18 20:51 81 174/83 06/10/18 20:00 99.2 81 20 174/83 (113) 95 06/10/18 20:00 71 06/10/18 16:00 64 06/10/18 16:00 97.6 80 20 122/51 (74) 96 80 06/10/18 13:21 131/55 06/10/18 12:00 66 06/10/18 12:00 97.7 58 18 131/55 (80) 97 58 Intake and Output 06/10/18 06/11/18 18:59 06:59 Intake Total 840 ml 360 ml Output Total 500 ml Balance 340 ml 360 ml Intake Oral 840 ml 360 ml Output Urine Total 500 ml # Voids 4 # Bowel Movements 1 1 Height (Feet): 6 Height (Inches): 1.00 Weight (Pounds): 214 EENT: normal ENT inspection, TMs normal, pharynx normal, other - TMJ clicking- also nurse notes he grinds teeth while sleeping Anthony Paige MD Jun 11, 2018 10:39
--- NOTE | 2018-06-11 10:41 | Nephrology Progress Note ---
Assessment/Plan Problem List: (1) Hypertensive urgency, malignant (2) Diabetic nephropathy Assessment Diabetic Nephropathy / Renal failure HTN OOC Anemia HypoAlbuminemia Plan Adjust BP meds add zestril- up dose Lopressor and Hydralazine Watch renal parameters and BS Anemia mckeon Subjective ROS Limited/Unobtainable: No Objective Objective Last 24 Hour Vital Signs Date Time Temp Pulse Resp B/P (MAP) Pulse Ox O2 Delivery O2 Flow Rate FiO2 06/11/18 09:00 Room Air 06/11/18 08:50 78 154/70 06/11/18 08:48 154/70 06/11/18 08:48 78 154/70 06/11/18 08:00 76 06/11/18 08:00 98.1 78 22 154/70 (98) 97 06/11/18 06:10 156/58 06/11/18 04:00 98.4 69 20 153/60 (91) 96 06/11/18 04:00 66 06/11/18 00:00 98.9 64 18 160/63 (95) 95 06/11/18 00:00 61 06/10/18 22:10 161/65 06/10/18 21:00 Room Air 06/10/18 20:51 81 174/83 06/10/18 20:00 99.2 81 20 174/83 (113) 95 06/10/18 20:00 71 06/10/18 16:00 64 06/10/18 16:00 97.6 80 20 122/51 (74) 96 80 06/10/18 13:21 131/55 06/10/18 12:00 66 06/10/18 12:00 97.7 58 18 131/55 (80) 97 58 Intake and Output 06/10/18 06/11/18 19:00 07:00 Intake Total 840 ml 360 ml Output Total 500 ml Balance 340 ml 360 ml Intake Oral 840 ml 360 ml Output Urine Total 500 ml # Voids 4 # Bowel Movements 1 1 Height (Feet): 6 Height (Inches): 1.00 Weight (Pounds): 214 General Appearance: no apparent distress Objective no change Rodrigue Mackenzie MD Jun 11, 2018 10:41
[2018-06-11] MEDS ORDERED: AMLODIPINE BESY10 MG ORAL (11:38)
[2018-06-11] MEDS ORDERED: AMOX TR-K CLV1 EAC2 ORAL ×2 (11:38→13:13)
--- NOTE | 2018-06-11 12:44 | Infectious Diseases Prog Note ---
Assessment/Plan Assessment/Plan A 1. sinusitis, R otitis media 2, hypertension 3. diabetes mellitus 4. CKD P 1. continue Augmentin until tomorrow Subjective ROS Limited/Unobtainable: No Constitutional: Reports: no symptoms Respiratory: Reports: no symptoms Cardiovascular: Reports: no symptoms Gastrointestinal/Abdominal: Reports: no symptoms Allergies: Coded Allergies: No Known Allergies (Unverified , 05/27/15) Objective Vital Signs Last 24 Hour Vital Signs Date Time Temp Pulse Resp B/P (MAP) Pulse Ox O2 Delivery O2 Flow Rate FiO2 06/11/18 09:00 Room Air 06/11/18 08:50 78 154/70 06/11/18 08:48 154/70 06/11/18 08:48 78 154/70 06/11/18 08:00 76 06/11/18 08:00 98.1 78 22 154/70 (98) 97 06/11/18 06:10 156/58 06/11/18 04:00 98.4 69 20 153/60 (91) 96 06/11/18 04:00 66 06/11/18 00:00 98.9 64 18 160/63 (95) 95 06/11/18 00:00 61 06/10/18 22:10 161/65 06/10/18 21:00 Room Air 06/10/18 20:51 81 174/83 06/10/18 20:00 99.2 81 20 174/83 (113) 95 06/10/18 20:00 71 06/10/18 16:00 64 06/10/18 16:00 97.6 80 20 122/51 (74) 96 80 06/10/18 13:21 131/55 Height (Feet): 6 Height (Inches): 1.00 Weight (Pounds): 214 General Appearance: no acute distress HEENT: mucous membranes moist Respiratory/Chest: lungs clear Cardiovascular: normal rate Abdomen: soft, non tender Extremities: no edema Neurologic/Psychiatric: alert, responsive Current Medications Medications (Trade) Dose Ordered Sig/Mayank Route PRN Reason Start Time Stop Time Status Last Admin Dose Admin Amlodipine Besylate (Norvasc) 10 mg DAILY ORAL 06/05/18 09:00 07/05/18 08:59 06/11/18 08:48 Amoxicillin/ Clavulanate Potassium (Augmentin) 875 mg EVERY 12 HOURS ORAL 06/05/18 09:00 06/12/18 08:59 06/11/18 08:48 Bethanechol Chloride (Urecholine) 25 mg THREE TIMES A DAY ORAL 06/05/18 09:00 07/05/18 08:59 06/11/18 08:48 Brimonidine Tartrate (Alphagan) 1 drop BID BOTH EYES 06/05/18 09:00 07/05/18 08:59 06/11/18 08:48 Clonidine HCl (Catapres Tab) 0.1 mg Q4H PRN ORAL SBP>170 mmHg 06/04/18 20:30 07/04/18 20:29 06/08/18 08:38 Dextrose (Dextrose 50%) 25 ml Q30M PRN IV Hypoglycemia 06/04/18 20:30 07/04/18 20:29 Dextrose (Dextrose 50%) 50 ml Q30M PRN IV Hypoglycemia 06/04/18 20:30 07/04/18 20:29 Donepezil HCl (Aricept) 10 mg QHS ORAL 06/06/18 21:00 07/05/18 08:59 06/10/18 20:50 Finasteride (Proscar) 5 mg DAILY ORAL 06/05/18 09:00 07/05/18 08:59 06/11/18 08:48 Hydralazine HCl (Apresoline) 75 mg Q8HR ORAL 06/06/18 14:00 07/05/18 13:59 06/11/18 06:10 Insulin Aspart (NovoLOG) BEFORE MEALS AND HS SUBQ 06/04/18 21:30 07/04/18 21:29 06/11/18 06:11 Lisinopril (Zestril) 10 mg DAILY ORAL 06/09/18 09:00 07/09/18 08:59 06/11/18 08:48 Metoprolol Tartrate (Lopressor) 75 mg Q12HR ORAL 06/08/18 21:00 07/04/18 20:59 06/11/18 08:50 Mirtazapine (Remeron) 7.5 mg BEDTIME ORAL 06/04/18 21:00 07/04/18 20:59 06/10/18 20:49 Nateglinide (Starlix) 120 mg TIAC ORAL 06/06/18 16:30 07/05/18 11:29 06/11/18 06:10 Tamsulosin HCl (Flomax) 0.4 mg BID ORAL 06/05/18 18:00 07/05/18 17:59 06/11/18 08:48 Viktor Miranda MD Jun 11, 2018 12:44
[2018-06-11] MEDS ORDERED: NOVOLOG100 UNIT/3 SUBQ (13:06)
[2018-06-11] MEDS ORDERED: HYDRALAZINE HCL50 MG ORAL (13:08)
[2018-06-11] MEDS ORDERED: METOPROLOL TART50 MG ORAL (13:10)
[2018-06-11] MEDS ORDERED: STARLIX60 MG ORAL (13:11)
[2018-06-11] MEDS ORDERED: CATAPRES0.1 MG ORAL (13:12)
--- NOTE | 2018-06-11 14:30 | General Progress Note ---
Assessment/Plan Status: stable Assessment/Plan # Anemia of iron deficiency due to underlying chronic medical issues, multifactorial. Ferritin of 32 --> Current Hgb is lower, reviewed anemia panel and c/w fay --> Cont to monitor for stability --> will consider to begin iron if hgb <11 # Monocytosis likely related to infection and reactive ==> on augmentin as per ID --> appreciate ID recs # Mastoiditis, seems to be chronic. --> ID is following, appreciate recs. # HTN. Cont BP meds. # DM. A1C goal less than 7. --> Cont to monitor BS levels --> Cont on insulin # MISAEL per renal GREATLY APPRECIATE CONSULTATION. Subjective Date patient seen: Jun 11, 2018 Hematologic/Lymphatic: Reports: anemia Allergies: Coded Allergies: No Known Allergies (Unverified , 05/27/15) All Systems: reviewed and negative except above Subjective Pt resting in bed. No acute events. DC planning. Objective Last 24 Hour Vital Signs Date Time Temp Pulse Resp B/P (MAP) Pulse Ox O2 Delivery O2 Flow Rate FiO2 06/11/18 09:00 Room Air 06/11/18 08:50 78 154/70 06/11/18 08:48 154/70 06/11/18 08:48 78 154/70 06/11/18 08:00 76 06/11/18 08:00 98.1 78 22 154/70 (98) 97 06/11/18 06:10 156/58 06/11/18 04:00 98.4 69 20 153/60 (91) 96 06/11/18 04:00 66 06/11/18 00:00 98.9 64 18 160/63 (95) 95 06/11/18 00:00 61 06/10/18 22:10 161/65 06/10/18 21:00 Room Air 06/10/18 20:51 81 174/83 06/10/18 20:00 99.2 81 20 174/83 (113) 95 06/10/18 20:00 71 06/10/18 16:00 64 06/10/18 16:00 97.6 80 20 122/51 (74) 96 80 Intake and Output 06/10/18 06/11/18 19:00 07:00 Intake Total 840 ml 360 ml Output Total 500 ml Balance 340 ml 360 ml Intake Oral 840 ml 360 ml Output Urine Total 500 ml # Voids 4 # Bowel Movements 1 1 Height (Feet): 6 Height (Inches): 1.00 Weight (Pounds): 214 Objective VITAL SIGNS: Have been reviewed GENERAL APPEARANCE: No acute distress. HEAD AND NECK: [place] conjunctivae. No oral lesion. Some secretion in the right ear. No significant erythema. HEART: Bradycardic. LUNGS: Clear. ABDOMEN: Soft and nontender. EXTREMITIES: He has no edema. NEUROLOGIC: Awake, alert, verbal, obeys commands. No focal signs. Some hearing loss. Cesar Singh MD Jun 11, 2018 14:30
--- NOTE | 2018-06-11 18:00 | Progress Note ---
DATE: 06/11/2018 SUBJECTIVE: This is an 88-year-old black male with a history of multiple medical problems including hypertension, diabetes, depression, chronic kidney disease, who has been admitted to the hospital due to hypertension. The patient is a poor historian and has cognitive impairment, was agitated. He is more alert and oriented today. He still has cognitive impairment and has difficulty sleeping. MENTAL STATUS EXAM: The patient is alert and oriented to self and place. Mood is depressed and anxious. Affect is constricted. Congruent with mood. Thought process is concrete. Thought content, no suicidal ot homicidal ideations. ASSESSMENT: Major depressive disorder and anxiety. PLAN: 1. The patient will be continued on Remeron. 2. Provide the patient with reality orientation and supportive therapy. Alexis Frey M.D. DR: VISHAL JOB#: [id number] CC:
--- NOTE | 2018-06-12 09:46 | Discharge Summary ---
Discharge Summary Discharge Summary _ DATE OF ADMISSION: 06/04/2018 DATE OF DISCHARGE: 06/11/2018 REASON FOR ADMISSION: 88 years old male with past medical history of hypertension, diabetes mellitus, chronic kidney disease, was sent for evaluation due to hypertension, mild headache ,and right ear pain with discharge. He denied neck pain and photophobia. Upon evaluation blood pressure 201/68. Laboratory workup revealed no leukocytosis, hemoglobin 12.5, hematocrit 37.9. BUN 15 creatinine 1.5. Stable LFT. Troponin negative , EKG revealed normal sinus rhythm, no acute ischemic changes. CT of the head was done on previous admission , and revealed evidence of right- sided mastoiditis. Patient at that time undergone treatment for antibiotic at the facility for unknown duration of time. Patient admitted with diagnosis of hypertensive urgency, malignant; renal failure, right-sided mastoiditis, right otitis media. CONSULTANTS: ID specialist Dr. Mary Miranda guest service agent Dr. Mackenzie co founder & ceo/oncologist Dr. Singh psychiatrist ENT specialist Dr. Paige [facility]: Patient admitted . Trimmer Helper closely followed. Antihypertensive regimen optimized to reach n goal of blood pressure. Patient was on multiply antihypertensive medications, including beta bess , AMY inhibitor, calcium channel bess and hydralazine. Clonidine was implemented on as needed basis. Blood pressure eventually stabilized. Renal parameters and electrolytes were closely monitored. Electrolytes corrected as needed. Nephrotoxins were avoided. Renal parameters remained at the same baseline. According to guest service agent , patient had chronic kidney disease due to diabetic nephropathy. Blood sugar was managed with Starlix and sliding scale of insulin. Hemoglobin A1c -9.5 ,not at goal. Patient will need further optimization of anti- glycemic regimen as outpatient. Infectious disease specialist followed. Patient was treated for sinusitis and right otitis media. According to infectious disease specialist, right sided mastoiditis appeared to be chronic. Patient had no acute symptoms ,no fever, no leukocytosis. Patient was on IV antibiotics while in the hospital and need to complete oral antibiotics at the facility as per infectious disease specialist recommendations. ENT specialist seen and evaluated patient. Patient had evidence of temporomandibular joint arthralgia along with right- sided mastoiditis. ENT specialist recommended to complete Augmentin treatment and follow-up with ENT specialist in 3-4 weeks to recheck the right ear. Patient was recommenced to see dentist regarding teeth grinding. Regional Coordinator followed for anemia . Hemoglobin and hematocrit were closely monitored with goal to keep hemoglobin above7. Anemia workup revealed evidence of iron deficiency anemia. Psychiatrist followed and started patient on Remeron. Reality orientation and supportive therapy provided. Flomax and Proscar were continued. Bowel regimen instituted. Patient was stable for discharge to correction facility for continuation of care. FINAL DIAGNOSES: Hypertensive urgency Chronic kidney disease with diabetic nephropathy Diabetes mellitus Sinusitis Right otitis media Right-sided mastoiditis TMJ with TMJ arthralgia BPH Iron deficiency anemia Major depressive disorder Anxiety disorder DISCHARGE MEDICATIONS: See Medication Reconciliation list. DISCHARGE INSTRUCTIONS: Patient was discharged to the correction facility. Follow up with medical doctor at the facility. Follow up with ENT specialist in 3 -4 weeks for right ear check up. Follow up with dentist regarding teeth grinding. I have been assigned to dictate discharge summary for this account. I was not involved in the patient's management. Vee Lugo NP Jun 12, 2018 09:46
== END 2018-06-11 14:00 | DRG 305 ==
LOC: EDBD 11:09 → EMR 11:42 → 2E 12:22 → EDBEDREQ 16:07 → 2E 19:16
DX: I16.0 Hypertensive urgency (principal); J32.9 Chronic sinusitis, unspecified; H66.91 Otitis media, unspecified, right ear; I12.9 Hypertensive chronic kidney disease with stage 1 through stage 4 chronic kidney disease, or unspecified chronic kidney disease; E11.22 Type 2 diabetes mellitus with diabetic chronic kidney disease; N18.9 Chronic kidney disease, unspecified; H70.11 Chronic mastoiditis, right ear; M26.629 Arthralgia of temporomandibular joint, unspecified side; N40.0 Benign prostatic hyperplasia without lower urinary tract symptoms; D50.9 Iron deficiency anemia, unspecified; F32.9 Major depressive disorder, single episode, unspecified; F41.9 Anxiety disorder, unspecified; E88.09 Other disorders of plasma-protein metabolism, not elsewhere classified
CPT/HCPCS: 36415; 80053; 80061; 81001; 82550; 82553; 82607; 82728; 82746; 82962; 82977; 83036; 83540; 83550; 83690; 83735; 83880; 84100; 84300; 84443; 84484; 84550; 85025; 86140; 87081; 93005; 96365; 96375; 99284; J1815

== ENCOUNTER 2018-07-30 10:40 | Inpatient (IN) | payer MEDICAID, MEDICARE ==
[~2018-07-30] VITALS: Ht 175.3 cm; Wt 91.6 kg
[~2018-07-30 10:40] MED LIST changes: +AMOX TR-K CLV1 EAC2 ORAL; +CATAPRES0.1 MG ORAL; +HYDRALAZINE HCL50 MG ORAL; +METOPROLOL TART50 MG ORAL; +NOVOLOG100 UNIT/3 SUBQ; +STARLIX60 MG ORAL
[2018-07-30 10:45] VITALS: BP 140/89
--- NOTE | 2018-07-30 10:45 | NUR ---
ED Nurse Note: PT BROUGHT IN BY AMBULANCE FROM [facility] DUE TO MASS ON INNER RIGHT EYE X 3 DAYS AGO. PT DENIES ANY PAIN BUT STATES THERE MAY BE CHANGES IN VISION. PT ALSO C/O GENERALIZED WEAKNESS X 3 DAYS AND C/O DECREASED ORAL INTAKE.
--- NOTE | 2018-07-30 11:40 | NUR ---
ED Nurse Note: XRAY AT BEDSIDE.
[2018-07-30 11:44] LABS: BILIRUBIN, URINE NEGATIVE (NEGATIVE); COLOR,URINE PALE YELLOW; GLUCOSE, URINE (UA) 4+ (NEGATIVE); KETONES,URINE NEGATIVE (NEGATIVE); LEUKOCYTE ESTERASE ,URINE 1+ (NEGATIVE); NITRITE,URINE POSITIVE (NEGATIVE); PH,URINE 6 (4.5-8.0); PROTEIN,URINE 3+ (NEGATIVE); UROBILINOGEN,URINE NORMAL MG/DL (0.0-1.0)
[2018-07-30 11:46] LABS: APPEARANCE,URINE CLOUDY
[2018-07-30 11:47] LABS: BASOPHILS % (AUTO) 0.7 % (0.0-2.0); EOSINOPHILS % (AUTO) 1.1 % (0.0-3.0); HEMATOCRIT 35.2 % (42.0-52.0); HEMOGLOBIN 11.5 G/DL (14.2-18.0); LYMPHOCYTES % (AUTO) 15.7 % (20.0-45.0); MEAN CORPUSCULAR VOLUME 90 FL (80-99); MONOCYTES % (AUTO) 9.6 % (1.0-10.0); NEUTROPHILS % (AUTO) 72.9 % (45.0-75.0); PLATELET COUNT 231 K/UL (150-450); RED BLOOD COUNT 3.92 M/UL (4.70-6.10); RED CELL DISTRIBUTION WIDTH 11.7 % (11.6-14.8); WHITE BLOOD COUNT 11.5 K/UL (4.8-10.8)
[2018-07-30 11:56] LABS: ANION GAP 8 mmol/L (5-15); BLOOD UREA NITROGEN 14 mg/dL (7-18); CALCIUM 8.7 MG/DL (8.5-10.1); CARBON DIOXIDE 30 MMOL/L (21-32); CHLORIDE 101 MMOL/L (98-107); CREATININE 1.6 MG/DL (0.55-1.30); POTASSIUM 3.4 MMOL/L (3.5-5.1); SODIUM 139 MMOL/L (136-145)
--- NOTE | 2018-07-30 12:05 | Diagnostic Imaging Report ---
Indication: Dyspnea Comparison: None A single view chest radiograph was obtained. Findings: Cardiomediastinal appearance is within normal limits for age. The lungs are clear. Pulmonary vascularity is appropriate. The diaphragmatic contour is smooth and costophrenic angles are sharp. No pleural effusions are identified. The bones are unremarkable. Impression: No acute findings
[2018-07-30] MEDS ORDERED: Clindamycin 600mg 50 ML IVPB ONE (12:15)
--- NOTE | 2018-07-30 12:22 | Emergency Room Report ---
History of Present Illness General Chief Complaint: Generalized Weakness Source: Patient, Medical Record, EMS Present Illness HPI 88-year-old male sent from custodial for generalized weakness and facial swelling for the past 4 days, as well as concern for possible urine infection. Reports he is not having any pain complaints, he does reports the swelling around his right eye and nose is sore but if he doesn't touch it does not hurt him. Hers, vomiting, abdominal pain, chest pain, any other complaints. Allergies: Coded Allergies: No Known Allergies (Unverified , 05/27/15) Patient History Past Medical History: see triage record Reviewed Nursing Documentation: PMH: Agreed; PSxH: Agreed Nursing Documentation-PMH Hx Cardiac Problems: Yes Hx Hypertension: Yes Hx Diabetes: Yes Hx Cancer: No Hx Gastrointestinal Problems: No Hx Dialysis: No - Chronic Kidney Disease, UTI Hx Neurological Problems: No Review of Systems All Other Systems: negative except mentioned in HPI Physical Exam Vital Signs Date Time Temp Pulse Resp B/P (MAP) Pulse Ox O2 Delivery O2 Flow Rate FiO2 07/30/18 10:41 98.2 96 18 167/62 97 Room Air Sp02 EP Interpretation: reviewed, normal General Appearance: no apparent distress, alert, non-toxic Head: normocephalic Eyes: bilateral eye normal inspection, bilateral eye PERRL, bilateral eye EOMI , bilateral eye other - R nasolacrimal duct area with 2cm diameter fluctuance and tenderness ENT: normal ENT inspection, hearing grossly normal, normal pharynx, no angioedema, normal voice, moist mucus membranes Neck: normal inspection, full range of motion, supple, supple/symm/no masses Respiratory: chest non-tender, lungs clear, normal breath sounds, no rhonchi, no respiratory distress, no retraction, no accessory muscle use, speaking full sentences, chest symmetrical, palpation of chest normal Cardiovascular #1: normal peripheral pulses, regular rate, rhythm, no gallop, no murmur, no rub Cardiovascular #2: 2+ radial (R), 2+ radial (L) Gastrointestinal: normal inspection, non tender, soft, no mass, no guarding, no rebound Rectal: deferred Genitourinary: normal inspection, no CVA tenderness Musculoskeletal: back normal, gait/station normal, normal range of motion, non- tender, no calf tenderness, Marlon's Sign negative Neurologic: alert, responsive, residential leasing agent III-XII nml as tested, motor strength/tone normal, sensory intact, speech normal Psychiatric: judgement/insight normal, memory normal, mood/affect normal, no suicidal/homicidal ideation Skin: normal color, no rash, warm/dry, normal turgor Lymphatic: no adenopathy Medical Decision Making Diagnostic Impression: Primary Impression: UTI (urinary tract infection) Additional Impressions: Dacryadenitis, acute Dacrocystitis ER Course Patient given IV Levaquin for UTI, as well as IV Clindamycin for dacryocystitis , with possible abscess. Patient has no focal weakness, do not suspect any other more serious pathology, and he'll be admitted to [facility] for antibiotics to Dr. Miller. EKG Diagnostic Results EKG Time: 11:26 EP Interpretation: 88 Rate: normal Rhythm: NSR ST Segments: no acute changes ASA given to the pt in ED: No Rhythm Strip Diag. Results Rhythm Strip Time: 12:20 EP Interpretation: yes Rate: 88 Rhythm: NSR, no PVC's, no ectopy Chest X-Ray Diagnostic Results Chest X-Ray Diagnostic Results : Chest X-Ray Ordered: Yes # of Views/Limited/Complete: 1 View Indication: Other - generalized weakness EP Interpretation: Yes Interpretation: no consolidation, no effusion, no pneumothorax, no acute cardiopulmonary disease Impression: No acute disease Electronically Signed by: Norman Norman Md Last Vital Signs Date Time Temp Pulse Resp B/P (MAP) Pulse Ox O2 Delivery O2 Flow Rate FiO2 07/30/18 10:45 82 15 Room Air 07/30/18 10:45 98.4 140/89 98 Disposition: ADMITTED INPATIENT Condition: Stable Referrals: Aliyah Miller MD (PCP) NORMAN NORMAN M.D Jul 30, 2018 12:22
[2018-07-30 12:25] LABS: ALANINE AMINOTRANSFERASE 19 U/L (12-78); ALBUMIN 2.8 G/DL (3.4-5.0); ALBUMIN/GLOBULIN RATIO 0.5 (1.0-2.7); ALKALINE PHOSPHATASE 98 U/L (46-116); ASPARTATE AMINO TRANSFERASE 15 U/L (15-37); BILIRUBIN,TOTAL 0.2 MG/DL (0.2-1.0); CREATINE KINASE 347 U/L (26-308)
[2018-07-30] MEDS: HydrALAZINE 50mg tab ORAL SCH (13:28)
[2018-07-30] MEDS ORDERED: Augmentin 875mg Tab ORAL SCH (13:30)
--- NOTE | 2018-07-30 13:39 | NUR ---
ED Nurse Note: [facility] CALLED FOR PT TRANSFER. REPORT GIVEN TO BENOIT STEVENSON. PT TRANSFERRED TO [facility] VIA GURNEY WITH ALL BELONGINGS ACCOMPANIED BY EMT.
--- NOTE | 2018-07-30 14:20 | NUR ---
nurse notes received patient from ED via gurney, patient awake, alert, oriented x4, no sign of distress, denies pain or discomfort, HL patent on fall precaution observed and maintained, plan of care was discussed verbalized understanding, 4P's in progress call light w/n reach .gutierrez gaspar
[2018-07-30 14:56] VITALS: BP 146/67
[2018-07-30 16:17] VITALS: BP 138/65
[2018-07-30] MEDS ORDERED: Repaglinide 1mg tab ORAL SCH (16:30)
[2018-07-30] MEDS: Bethanechol 25mg Tab ORAL SCH (17:19)
[2018-07-30] MEDS: Brimonidine 0.2% Opth Sol BOTH EYES SCH (17:20)
[2018-07-30] MEDS: HydrALAZINE 25mg tab ORAL SCH (17:20)
[2018-07-30] MEDS: NovoLOG Insulin Flexpen SUBQ SCH ×2 (17:21→20:48)
--- NOTE | 2018-07-30 19:28 | NUR ---
HAND-OFF: Report given to Ms Papo RN.
--- NOTE | 2018-07-30 19:35 | NUR ---
NURSE NOTES: Received patient in bed, awake, No acute distress noted, No c/o of pain or any discomfort noted at this time, Bed is in lowest position and locked, alarm is on, Call light and needs within reach, Will continue to monitor.
[2018-07-30 20:00] VITALS: BP 131/49
[2018-07-30] MEDS: Metoprolol Tartrate 50mg tab ORAL SCH (20:46)
[2018-07-30] MEDS: Levemir Flexpen SUBQ SCH (20:49)
[2018-07-30] MEDS ORDERED: Tamsulosin 0.4mg cap ORAL SCH (21:00)
[2018-07-31] VITALS (7 sets, daily range): BP systolic 127–160; BP diastolic 53–85
[2018-07-31] MEDS: HydrALAZINE 25mg tab ORAL SCH ×4 (00:27→21:12)
[2018-07-31] MEDS ORDERED: Glimepiride 4mg tab ORAL SCH (06:30)
[2018-07-31] MEDS: NovoLOG Insulin Flexpen SUBQ SCH ×4 (06:30→21:18)
--- NOTE | 2018-07-31 07:33 | NUR ---
HAND-OFF: Report given to Severino LABOY.
[2018-07-31] MEDS: Metoprolol Tartrate 50mg tab ORAL SCH ×2 (09:00→21:11)
[2018-07-31] MEDS ORDERED: Doxazosin 4mg tab ORAL SCH (09:00)
[2018-07-31] MEDS: HydrALAZINE 50mg tab ORAL SCH (09:00)
[2018-07-31] MEDS: Brimonidine 0.2% Opth Sol BOTH EYES SCH ×2 (09:12→17:15)
[2018-07-31] MEDS: Bethanechol 25mg Tab ORAL SCH ×3 (09:13→17:14)
--- NOTE | 2018-07-31 10:50 | NUR ---
NURSE NOTES: PT AXOX4 WITH BLOODY DRAINAGE NOTED ON RIGHT EYE. DR VIDAL AT BEDSIDE WITH ORDER FOR CULTURE AND ANTIBIOTICS. WITH ORDER TO CLEANSE WITH NS BID. PT IN NO APPARENT DISTRESS AT THIS TIME. CALL LIGHT WITHIN REACH. BED IN LOWEST POSITION. WILL CONTINUE TO MONITOR.
--- NOTE | 2018-07-31 11:03 | NUR ---
NURSE NOTES: PT ON MULTIPLE BP MEDS SCHEDULED FOR [address] DARDEN FOR CLARIFICATION AND BP PARAMETERS. DR DARDEN WITH ORDER TO CONSULT DR PARISI REGARDING BP MEDS. DR PARISI AT BEDSIDE AND MADE AWARE OF MULTIPLE BP MEDS. DR PARISI TO REVIEW BP MEDS.
--- NOTE | 2018-07-31 12:08 | NUR ---
P.T Note: P.T evaluation completed and treatment initiated. Please refer to P.T evaluation for current functional status. Skilled P.T service is warranted to improve strength, balance and endurance to increase safety and independence in functional mobilities. Recommend return to prior living arrangement upon DC . Thank you for this referral.
[2018-07-31] MEDS: Ciprofloxacin Opth Soln 2.5ml RIGHT EYE SCH ×3 (12:42→21:11)
--- NOTE | 2018-07-31 15:01 | Consultation ---
Consult Note Consult Note Asked to eval for elevated Cr and HTN 88-year-old male sent from long term for generalized weakness and facial swelling for the past 4 days, as well as concern for possible urine infection. Reports he is not having any pain complaints, he does reports the swelling around his right eye and nose is sore but if he doesn't touch it does not hurt him. Hers, vomiting, abdominal pain, chest pain, any other complaints. Allergies: No Known Allergies (Unverified , 05/27/15) Hx Cardiac Problems: Yes Hx Hypertension: Yes Hx Diabetes: Yes Hx Dialysis: No - Chronic Kidney Disease, UTI examined data reviewed Assessment/Plan Diabetic Nephropathy HTN IDDM Dacrocystitis BPH Anemia UTI Adjust BP meds Monitor Renal parameters Antibiotics per ID 2D echo SERGIO kidney Urine studies Rodrigue Mackenzie MD Jul 31, 2018 15:01
[2018-07-31] MEDS: Vancomycin 1gm/D5W 275ml IVPB SCH ×2 (16:13)
--- NOTE | 2018-07-31 16:18 | Cardiology Report ---
APPROVED REPORT EKG Measurement Heart [id number] Sinus rhythm with premature atrial complexes Nonspecific T wave abnormality Abnormal ECG
--- NOTE | 2018-07-31 16:21 | NUR ---
CASE MANAGEMENT:REVIEW 88 YR OLD MALE BIBA FROM [facility] CC: GENERALIZED WEAKNESS SI: ACUTE DACRYADENITIS. UTI 98.2 96 18 167/62 97% ON RA WBC+11.5 CR+1.6 TCK+347 IS: IV LEVAQUIN IV CLINDAMYCIN 1L NS BOLUS CXR BLOOD CX : MED/SURG STATUS
--- NOTE | 2018-07-31 16:39 | Cardiology Report ---
APPROVED REPORT EXAM: Two-dimensional and M-mode echocardiogram with Doppler and color Doppler. INDICATION Congestive Heart Failure M-Mode DIMENSIONS IVSd1.0 (0.7-1.1cm)Left Atrium (MM)4.3 (1.6-4.0cm) LVDd4.6 (3.5-5.6cm)Aortic Root3.2 (2.0-3.7cm) PWd1.2 (0.7-1.1cm)Aortic Cusp Exc.1.3 (1.5-2.0cm) IVSs1.4 cm LVDs3.0 (2.5-4.0cm) PWs1.3 cm Normal left ventricular chamber size, systolic function and wall motion . Left ventricular ejection fraction estimated to be 60-65 %. Mild left ventricular hypertrophy by 2-D. No evidence of pericardial effusion. Mild bi-atrial enlargement . Right ventricular chamber sizes is within normal limits. Aortic valve calcification with decreased cusp excursion c/w aortic stenosis. Moderately thickened mitral valve leaflets with normal excursion. Moderately mitral annulus and aortic root calcification. Normal pulmonic valve structure. Normal tricuspid valve structure. IVC at normal size with physiologic collapse. A color flow and spectral Doppler study was performed and revealed: No aortic insufficiency . Peak aortic valve gradient of 39 mm Hg and a mean of 27 mmHg. Aortic valve area 1.1 cm2 calculated by continuity equation. Mild mitral regurgitation. Mitral diastolic velocities suggest reduced left ventricular relaxation c/w mild LV diastolic dysfunction (Grade I ). Mild tricuspid regurgitation. Tricuspid systolic velocities suggests peak right ventricular systolic pressure of 49 mmHg,consistent with moderate pulmonary hypertension. Pulmonic regurgitation present .
--- NOTE | 2018-07-31 19:30 | NUR ---
HAND-OFF: Report given to Quiana SAM RN.
--- NOTE | 2018-07-31 19:30 | NUR ---
NURSE NOTES: Patient received sitting up on the bed, assisted to the bathroom, unsteady gait ambulatory with walker. Assisted back in bed safely. Call light within reach, bed alarm on. IV is intact and patent. IV vanco infusing. Will continue POC.
[2018-07-31] MEDS: Tamsulosin 0.4mg cap ORAL SCH (21:11)
[2018-07-31] MEDS: Levemir Flexpen SUBQ SCH (21:18)
--- NOTE | 2018-07-31 22:15 | Consultation ---
DATE OF CONSULTATION: 07/31/2018 INFECTIOUS DISEASE CONSULTATION CONSULTING PHYSICIAN: Viktor Miranda M.D. PRIMARY ATTENDING PHYSICIAN: Aliyah Miller M.D. REASON FOR CONSULTATION: UTI and dacryoadenitis. HISTORY OF PRESENT ILLNESS: The patient is an 88-year-old -[place] male who is a jail resident, admitted last year and then yesterday, complaining of swelling and discharge from right eye lower lid area that become bloody. The patient also had some urinary symptoms. PAST MEDICAL HISTORY: Significant for diabetes mellitus, hypertension, chronic kidney disease, BPH, depression, and anemia. The patient had a history of admission to [facility] in May of 2018. At that time, he had mastoiditis, likely with otitis media in the right side. ALLERGIES: No known drug allergies. MEDICATIONS: Levaquin, hydralazine, Flomax, ophthalmic Cipro, amlodipine, benazepril, finasteride, Protonix, potassium chloride, Amaryl, Levemir insulin, metoprolol,, Alphagan eye drops, Starlix, gave a dose of Augmentin. SOCIAL HISTORY: No history of alcohol, drug abuse, or smoking. senior living resident. He has a son. REVIEW OF SYSTEMS: No fever. No chills. He has some pain and swelling in the right lower eyelid. No significant coughing. No nausea or vomiting. No diarrhea. He has some problem with urination. PHYSICAL EXAMINATION: VITAL SIGNS: Temperature 98.1 and blood pressure 157/56. GENERAL APPEARANCE: No acute distress. HEAD AND NECK: He has erythema of the lower eyelid at the site of nasal lacrimal duct. There was some bloody discharge coming from the area at normal rate. LUNGS: Clear. ABDOMEN: Soft and nontender. EXTREMITIES: He has no edema. LABORATORY AND DIAGNOSTIC DATA: WBC 11.5, hemoglobin 11.5, hematocrit 35.2, and platelets 231,000. Sodium 139, potassium 3.4, BUN 14, creatinine 1.6, glucose 314, and albumin is 2.8. UA was wbc 2 to 4, rbc 5 to 10, and nitrite was positive. Urine culture growing Staph. Influenza A and B was negative. IMPRESSION: 1. Urinary tract infection with the Staph aureus. 2. Dacryoadenitis. 3. Diabetes mellitus. 4. Hypertension. 5. Chronic kidney disease. 6. Benign prostatic hypertrophy. RECOMMENDATIONS: We will continue with Levaquin and Cipro eye drops. We will add IV vancomycin. We will follow up the cultures. We will follow up the ophthalmic evaluation. At the end of my exam, I thank Dr. Miller for involving me in the care of this patient. Viktor Miranda M.D. DR: PINEDA JOB#: [id number] CC: BENY
--- NOTE | 2018-08-01 04:07 | NUR ---
NURSE NOTES: Patient verbalized "feeling terrible". Blood sugar was checked and it was 55. Patient is still awake and alert but with some confusion this time. Able to still follow commands, patient was given 2 cups of orange juices. BS is checked, 75 and patient verbalized "feeling a little better." Offered more snacks and juice for patient, but patient stated he wants to rest right now. Message left to Dr. Miller.
[2018-08-01 04:12] VITALS: BP 167/65
[2018-08-01] MEDS: HydrALAZINE 25mg tab ORAL SCH ×2 (06:19→13:14)
[2018-08-01 06:22] LABS: BASOPHILS % (AUTO) 1.7 % (0.0-2.0); EOSINOPHILS % (AUTO) 0.5 % (0.0-3.0); HEMATOCRIT 29.5 % (42.0-52.0); HEMOGLOBIN 9.7 G/DL (14.2-18.0); LYMPHOCYTES % (AUTO) 10.3 % (20.0-45.0); MEAN CORPUSCULAR VOLUME 89 FL (80-99); MONOCYTES % (AUTO) 10.5 % (1.0-10.0); PLATELET COUNT 213 K/UL (150-450); RED CELL DISTRIBUTION WIDTH 11.9 % (11.6-14.8); WHITE BLOOD COUNT 9.8 K/UL (4.8-10.8)
--- NOTE | 2018-08-01 06:30 | NUR ---
NURSE NOTES: Spoke with Dr. Miller and made aware of patient's blood sugar earlier. Patient's new blood sguar is 130, and confusion was resolved. Received new orders to DC glimiperide, levemir decreased to 34 units and sliding scale changed to low scale. Dr. Miller said to call Dr. Stuart. Spoke with Dr. Stuart and Dr. Stuart was made aware of Dr. Miller's change in diabetic medications, and he concurred. Will carry out orders.
[2018-08-01] MEDS: NovoLOG Insulin Flexpen SUBQ SCH ×4 (06:44→21:17)
[2018-08-01 06:56] LABS: ALANINE AMINOTRANSFERASE 17 U/L (12-78); ALBUMIN 2.5 G/DL (3.4-5.0); ALBUMIN/GLOBULIN RATIO 0.5 (1.0-2.7); ALKALINE PHOSPHATASE 71 U/L (46-116); ANION GAP 8 mmol/L (5-15); ASPARTATE AMINO TRANSFERASE 21 U/L (15-37); BILIRUBIN,TOTAL 0.4 MG/DL (0.2-1.0); BLOOD UREA NITROGEN 16 mg/dL (7-18); CALCIUM 8.2 MG/DL (8.5-10.1); CARBON DIOXIDE 26 MMOL/L (21-32); CHLORIDE 105 MMOL/L (98-107); CHOLESTEROL 131 MG/DL (< 200); CREATINE KINASE 375 U/L (26-308); CREATININE 1.5 MG/DL (0.55-1.30); FERRITIN 120 NG/ML (8-388); GAMMA GLUTAMYL TRANSPEPTIDASE 12 U/L (5-85); HDL CHOLESTEROL 49 MG/DL (40-60); PHOSPHORUS 4.3 MG/DL (2.5-4.9); POTASSIUM 3.8 MMOL/L (3.5-5.1); SODIUM 139 MMOL/L (136-145); TRIGLYCERIDES 59 MG/DL (30-150)
--- NOTE | 2018-08-01 06:59 | NUR ---
HAND-OFF: Report given to Severino LABOY.
[2018-08-01 07:25] LABS: % IRON SATURATION 33 % (15-50); IRON 69 ug/dL (50-175); TOTAL IRON BINDING CAPACITY 209 ug/dL (250-450)
--- NOTE | 2018-08-01 07:45 | NUR ---
NURSE NOTES: PT EATING BREAKFAST IN BED. CALM, DENIES PAIN. IN NO APPARENT DISTRESS AT THIS TIME. CALL LIGHT WITHIN REACH. BED IN LOWEST POSITION WITH BEDSIDE RAILS X3 RAISED. WILL CONTINUE TO MONITOR.
[2018-08-01 08:00] VITALS: BP 146/68
[2018-08-01] MEDS ORDERED: Levofloxacin 750mg tab ORAL SCH (09:00)
[2018-08-01] MEDS: Ciprofloxacin Opth Soln 2.5ml RIGHT EYE SCH ×4 (09:31→21:12)
[2018-08-01] MEDS: Brimonidine 0.2% Opth Sol BOTH EYES SCH ×2 (09:31→17:35)
[2018-08-01] MEDS: Bethanechol 25mg Tab ORAL SCH ×3 (09:32→17:34)
[2018-08-01] MEDS: Metoprolol Tartrate 50mg tab ORAL SCH (09:32)
--- NOTE | 2018-08-01 10:28 | NUR ---
NURSE NOTES: PT COMPLAINS OF DIFFICULTY WITH BOWEL MOVEMENTS. DR DARDEN MADE AWARE WITH NEW ORDER FOR COLACE 100MG PO BID (FIRST DOSE NOW), SENNA 1 TAB DAILY (FIRST DOSE NOW), AND MOM 30CC PO Q4H PRN CONSTIPATION (FIRST DOSE NOW). ORDERS ENTERED.
[2018-08-01] MEDS ORDERED: Milk of Magnesia 30ml Ud ORAL PRN (10:30)
[2018-08-01] MEDS ORDERED: Docusate 100mg cap ORAL SCH ×3 (10:30→18:00)
[2018-08-01] MEDS ORDERED: Sennosides 8.6mg tab ORAL SCH ×2 (10:30→11:00)
--- NOTE | 2018-08-01 10:45 | History and Physical Report ---
DATE OF ADMISSION: 07/30/2018 "NOTE: POOR AUDIO QUALITY" HISTORY OF PRESENT ILLNESS: . The patient complained of eye pain and swelling under the right eye for about a week. Denies fevers or chills. . Denies cough. Denies dysuria. PAST MEDICAL HISTORY: Significant for hypertension, BPH, NIDDM, mood disorder, GERD, BPH, . MEDICATIONS: , Nexium, glimepiride, insulin, omeprazole, and Flomax. ALLERGIES: . FAMILY HISTORY: Noncontributory. SOCIAL HISTORY: Denies smoking tobacco, alcohol, or illicit drugs. REVIEW OF SYSTEMS: HEENT: Denies headaches. Right eye pain and swelling of the right eye. . RESPIRATORY: Denies shortness of breath or cough. CARDIOVASCULAR: Denies chest pain. GASTROINTESTINAL: Denies any nausea, vomiting, or diarrhea. EXTREMITIES: Denies pain in the lower extremities. CENTRAL NERVOUS SYSTEM: Denies change in vision or speech pattern. PHYSICAL EXAMINATION: VITAL SIGNS: Temperature 98.1 degrees, pulse is 79, and blood pressure . HEENT: The patient does have swelling and tender to touch on the right side between the nose and eye localized abscess. NECK: Supple. CHEST: Clear to auscultation. CARDIOVASCULAR: Regular rate and rhythm. ABDOMEN: Soft, nontender, and nondistended. . EXTREMITIES: 1+ edema. NEUROLOGIC: Reflexes equal on both sides. Moves all four extremities. LABORATORY AND DIAGNOSTIC DATA: WBC of , hemoglobin 11.5, and platelets 231. Sodium , potassium , BUN of , creatinine 1.6, and glucose of 314. ASSESSMENT AND PLAN: cystitis IV antibiotics per Dr. Miranda and Dr. Mackenzie was consulted . Aliyah Miller M.D. DR: LOR JOB#: [id number] CC:
--- NOTE | 2018-08-01 10:53 | NUR ---
NURSE NOTES: RN RECEIVED CRITICAL VALUE MRSA URINE AND MADE DR Mary MICHAEL AWARE. NO NEW ORDERS RECEIVED.
--- NOTE | 2018-08-01 11:02 | Diagnostic Imaging Report ---
Indication:Elevated Bun and Creatinine. Technique: Grayscale and duplex Doppler imaging of the kidneys performed. Comparison: None Findings: Visualization of the kidneys is poor. There are multiple cysts of varying size within both kidneys. There is no obvious hydronephrosis but the this is not evaluated adequately. Suggest CT or a different modality for evaluation. The largest cyst is about 5 cm and the left kidney. The right kidney is 12 cm. The left kidney is 10 cm in length. IMPRESSION: Technically suboptimal examination. This is likely related to body habitus. Suggest CT for further evaluation. Suggestion of multiple bilateral renal cysts.
[2018-08-01 12:00] VITALS: BP 163/71
--- NOTE | 2018-08-01 13:21 | Infectious Diseases Prog Note ---
Assessment/Plan Assessment/Plan A: 1. Urinary tract infection with the Staph aureus, MRSA 2. Dacryoadenitis. 3. Diabetes mellitus. 4. Hypertension. 5. Chronic kidney disease. 6. Benign prostatic hypertrophy. RECOMMENDATIONS: continue with Levaquin and Cipro eye drops & IV vancomycin. We will follow up the cultures. We will follow up the ophthalmic evaluation. Subjective ROS Limited/Unobtainable: No Constitutional: Reports: other - doing better HEENT: Reports: no symptoms Respiratory: Reports: productive cough Gastrointestinal/Abdominal: Reports: no symptoms Genitourinary: Reports: no symptoms Allergies: Coded Allergies: No Known Allergies (Unverified , 05/27/15) Objective Vital Signs Last 24 Hour Vital Signs Date Time Temp Pulse Resp B/P (MAP) Pulse Ox O2 Delivery O2 Flow Rate FiO2 08/01/18 13:14 163/71 08/01/18 12:00 98.6 87 19 163/71 (101) 98 08/01/18 09:32 73 146/68 08/01/18 09:32 73 146/68 08/01/18 09:31 146/68 08/01/18 09:00 Room Air 08/01/18 08:00 97.3 73 18 146/68 (94) 97 08/01/18 06:19 147/67 08/01/18 04:12 97.4 70 20 167/65 (99) 95 07/31/18 23:37 99.0 68 20 131/55 (80) 97 07/31/18 21:12 160/85 07/31/18 21:11 86 160/85 07/31/18 21:00 Room Air 07/31/18 20:00 98.7 86 22 160/85 (110) 98 07/31/18 16:00 97.7 75 18 138/58 (84) 97 Height (Feet): 5 Height (Inches): 9.00 Weight (Pounds): 202 General Appearance: no acute distress HEENT: other - swelling of R lacrimal duct Respiratory/Chest: lungs clear Cardiovascular: normal rate Abdomen: soft, non tender Extremities: no edema Neurologic/Psychiatric: alert, responsive, other - decreased hearing Microbiology Date/Time Source Procedure Growth Status 07/30/18 11:10 Blood Blood Culture - Preliminary NO GROWTH AFTER 24 HOURS Resulted 07/30/18 11:10 Blood Blood Culture - Preliminary NO GROWTH AFTER 24 HOURS Resulted 07/30/18 11:10 Nasal Nares Influenza Types A,B Antigen (BIA) - Final Complete 07/30/18 11:10 Urine,Clean Catch Urine Culture - Final Staphylococcus Aureus - Mrsa Complete 07/31/18 10:00 Eye Right Gram Stain Pending Resulted 07/31/18 10:00 Eye Right Eye Culture - Preliminary Resulted Laboratory Tests Test 07/31/18 17:20 07/31/18 18:30 08/01/18 05:40 C-Reactive Protein, Quantitative 9.2 mg/dL (0.00-0.90) H Urine Random Sodium 39 mmol/L (20-110) White Blood Count 9.8 K/UL (4.8-10.8) Red Blood Count 3.30 M/UL (4.70-6.10) L Hemoglobin 9.7 G/DL (14.2-18.0) L Hematocrit 29.5 % (42.0-52.0) L Mean Corpuscular Volume 89 FL (80-99) Mean Corpuscular Hemoglobin 29.3 PG (27.0-31.0) Mean Corpuscular Hemoglobin Concent 32.7 G/DL (32.0-36.0) Red Cell Distribution Width 11.9 % (11.6-14.8) Platelet Count 213 K/UL (150-450) Mean Platelet Volume 7.8 FL (6.5-10.1) Neutrophils (%) (Auto) 77.0 % (45.0-75.0) H Lymphocytes (%) (Auto) 10.3 % (20.0-45.0) L Monocytes (%) (Auto) 10.5 % (1.0-10.0) H Eosinophils (%) (Auto) 0.5 % (0.0-3.0) Basophils (%) (Auto) 1.7 % (0.0-2.0) Sodium Level 139 MMOL/L (136-145) Potassium Level 3.8 MMOL/L (3.5-5.1) Chloride Level 105 MMOL/L (98-107) Carbon Dioxide Level 26 MMOL/L (21-32) Anion Gap 8 mmol/L (5-15) Blood Urea Nitrogen 16 mg/dL (7-18) Creatinine 1.5 MG/DL (0.55-1.30) H Estimat Glomerular Filtration Rate mL/min (>60) Glucose Level 132 MG/DL (74-106) H Hemoglobin A1c 10.0 % (4.3-6.0) H Uric Acid 4.1 MG/DL (2.6-7.2) Calcium Level 8.2 MG/DL (8.5-10.1) L Phosphorus Level 4.3 MG/DL (2.5-4.9) Magnesium Level 1.9 MG/DL (1.8-2.4) Iron Level 69 ug/dL (50-175) Total Iron Binding Capacity 209 ug/dL (250-450) L Percent Iron Saturation 33 % (15-50) Unsaturated Iron Binding 140 ug/dL (112-346) Ferritin 120 NG/ML (8-388) Total Bilirubin 0.4 MG/DL (0.2-1.0) Gamma Glutamyl Transpeptidase 12 U/L (5-85) Aspartate Amino Transf (AST/SGOT) 21 U/L (15-37) Alanine Aminotransferase (ALT/SGPT) 17 U/L (12-78) Alkaline Phosphatase 71 U/L (46-116) Total Creatine Kinase 375 U/L (26-308) H Troponin I 0.032 ng/mL (0.000-0.056) Pro-B-Type Natriuretic Peptide 589 pg/mL (0-125) H Total Protein 7.1 G/DL (6.4-8.2) Albumin 2.5 G/DL (3.4-5.0) L Globulin 4.6 g/dL Albumin/Globulin Ratio 0.5 (1.0-2.7) L Triglycerides Level 59 MG/DL (30-150) Cholesterol Level 131 MG/DL (< 200) LDL Cholesterol 67 mg/dL (<100) HDL Cholesterol 49 MG/DL (40-60) Cholesterol/HDL Ratio 2.7 (3.3-4.4) L Vitamin B12 Level 444 PG/ML (193-986) Folate 18.3 NG/ML (8.6-58.9) Thyroid Stimulating Hormone (TSH) 1.034 uiU/mL (0.358-3.740) Current Medications Medications (Trade) Dose Ordered Sig/Mayank Route PRN Reason Start Time Stop Time Status Last Admin Dose Admin Amlodipine Besylate (Norvasc) 10 mg DAILY ORAL 1/16/19 09:00 08/30/18 08:59 08/01/18 09:32 Benazepril HCl (Lotensin) 20 mg DAILY ORAL 07/31/18 09:00 08/30/18 08:59 08/01/18 09:31 Bethanechol Chloride (Urecholine) 25 mg THREE TIMES A DAY ORAL 07/30/18 18:00 08/29/18 17:59 08/01/18 13:13 Brimonidine Tartrate (Alphagan) 1 drop BID BOTH EYES 07/30/18 18:00 08/29/18 17:59 08/01/18 09:31 Ciprofloxacin (Ciloxan Opth Soln) 1 drop QID RIGHT EYE 07/31/18 13:00 08/07/18 12:59 08/01/18 13:14 Clonidine HCl (Catapres Tab) 0.1 mg Q4H PRN ORAL sbp >170 07/30/18 15:30 08/29/18 15:29 Dextrose (Dextrose 50%) 25 ml Q30M PRN IV Hypoglycemia 07/30/18 16:30 08/29/18 16:29 Dextrose (Dextrose 50%) 50 ml Q30M PRN IV Hypoglycemia 07/30/18 16:30 08/29/18 16:29 Docusate Sodium (Colace) 100 mg TWICE A DAY ORAL 08/01/18 18:00 08/31/18 17:59 Finasteride (Proscar) 5 mg DAILY ORAL 07/31/18 09:00 08/30/18 08:59 08/01/18 09:31 Hydralazine HCl (Apresoline) 75 mg Q8HR ORAL 07/31/18 22:00 08/29/18 17:59 08/01/18 13:14 Insulin Aspart (NovoLOG) BEFORE MEALS AND HS SUBQ 08/01/18 06:30 08/31/18 06:29 08/01/18 11:47 Insulin Detemir (Levemir) 34 units BEDTIME SUBQ 08/01/18 21:00 08/29/18 20:59 Levofloxacin (Levaquin) 750 mg QOD ORAL 08/01/18 09:00 08/08/18 08:59 08/01/18 09:31 Magnesium Hydroxide (Mom) 30 ml Q4H PRN ORAL Constipation 08/01/18 10:30 08/31/18 10:29 Metoprolol Tartrate (Lopressor) 75 mg Q12HR ORAL 07/30/18 21:00 08/29/18 20:59 07/31/18 21:11 Nateglinide (Starlix) 120 mg TIAC ORAL 07/30/18 16:30 08/29/18 16:29 08/01/18 11:46 Pantoprazole (Protonix) 40 mg DAILY ORAL 07/31/18 09:00 08/30/18 08:59 08/01/18 09:31 Potassium Chloride (K-Dur) 20 meq DAILY ORAL 07/31/18 09:00 08/30/18 08:59 08/01/18 09:31 Sennosides (Senokot) 8.6 mg DAILY ORAL 08/02/18 09:00 09/01/18 08:59 Tamsulosin HCl (Flomax) 0.8 mg BEDTIME ORAL 07/31/18 21:00 08/29/18 20:59 07/31/18 21:11 Vancomycin HCl (Vanco rx to dose) 1 ea DAILY PRN MISC Per rx protocol 07/31/18 15:15 08/30/18 15:14 Vancomycin HCl 1 gm/Dextrose 275 ml @ 183.708 mls/hr Q24H IVPB 07/31/18 16:00 08/05/18 15:59 07/31/18 16:13 Viktor Miranda MD Aug 01, 2018 13:21
--- NOTE | 2018-08-01 15:29 | Nephrology Progress Note ---
Assessment/Plan Problem List: (1) Dacrocystitis (2) Diabetic nephropathy (3) Hypertension (4) BPH (benign prostatic hyperplasia) (5) Anemia (6) UTI (urinary tract infection) Assessment Diabetic Nephropathy / proteinuria HTN IDDM Dacrocystitis BPH Anemia UTI Plan Adjust BP meds Monitor Renal parameters Antibiotics per ID 2D echo Left ventricular ejection fraction estimated to be 60-65 %. SERGIO kidney multiple bilateral renal cysts. Urine studies Subjective ROS Limited/Unobtainable: No Constitutional: Reports: malaise, weakness Objective Objective Last 24 Hour Vital Signs Date Time Temp Pulse Resp B/P (MAP) Pulse Ox O2 Delivery O2 Flow Rate FiO2 08/01/18 13:14 163/71 08/01/18 12:00 98.6 87 19 163/71 (101) 98 08/01/18 09:32 73 146/68 08/01/18 09:32 73 146/68 08/01/18 09:31 146/68 08/01/18 09:00 Room Air 08/01/18 08:00 97.3 73 18 146/68 (94) 97 08/01/18 06:19 147/67 08/01/18 04:12 97.4 70 20 167/65 (99) 95 07/31/18 23:37 99.0 68 20 131/55 (80) 97 07/31/18 21:12 160/85 07/31/18 21:11 86 160/85 07/31/18 21:00 Room Air 07/31/18 20:00 98.7 86 22 160/85 (110) 98 07/31/18 16:00 97.7 75 18 138/58 (84) 97 Intake and Output 07/31/18 08/01/18 19:00 07:00 Intake Total 720 ml 395 ml Output Total 550 ml 150 ml Balance 170 ml 245 ml Intake Oral 720 ml 120 ml IV Total 275 ml Output Urine Total 550 ml 150 ml # Voids 2 Laboratory Tests 07/31/18 17:20: C-Reactive Protein, Quantitative 9.2H 07/31/18 18:30: Urine Random Sodium 39 08/01/18 05:40: White Blood Count 9.8, Red Blood Count 3.30L, Hemoglobin 9.7L, Hematocrit 29.5L , Mean Corpuscular Volume 89, Mean Corpuscular Hemoglobin 29.3, Mean Corpuscular Hemoglobin Concent 32.7, Red Cell Distribution Width 11.9, Platelet Count 213, Mean Platelet Volume 7.8, Neutrophils (%) (Auto) 77.0H, Lymphocytes ( %) (Auto) 10.3L, Monocytes (%) (Auto) 10.5H, Eosinophils (%) (Auto) 0.5, Basophils (%) (Auto) 1.7, Sodium Level 139, Potassium Level 3.8, Chloride Level 105, Carbon Dioxide Level 26, Anion Gap 8, Blood Urea Nitrogen 16, Creatinine 1.5H, Estimat Glomerular Filtration Rate , Glucose Level 132H, Hemoglobin A1c 10.0H, Uric Acid 4.1, Calcium Level 8.2L, Phosphorus Level 4.3, Magnesium Level 1.9, Iron Level 69, Total Iron Binding Capacity 209L, Percent Iron Saturation 33 , Unsaturated Iron Binding 140, Ferritin 120, Total Bilirubin 0.4, Gamma Glutamyl Transpeptidase 12, Aspartate Amino Transf (AST/SGOT) 21, Alanine Aminotransferase (ALT/SGPT) 17, Alkaline Phosphatase 71, Total Creatine Kinase 375H, Troponin I 0.032, Pro-B-Type Natriuretic Peptide 589H, Total Protein 7.1, Albumin 2.5L, Globulin 4.6, Albumin/Globulin Ratio 0.5L, Triglycerides Level 59 , Cholesterol Level 131, LDL Cholesterol 67, HDL Cholesterol 49, Cholesterol/ HDL Ratio 2.7L, Vitamin B12 Level 444, Folate 18.3, Thyroid Stimulating Hormone (TSH) 1.034 Height (Feet): 5 Height (Inches): 9.00 Weight (Pounds): 202 General Appearance: no apparent distress Cardiovascular: tachycardia Respiratory/Chest: decreased breath sounds Abdomen: distended Rodrigue Mackenzie MD Aug 01, 2018 15:29
[2018-08-01 16:00] VITALS: BP 147/74
[2018-08-01] MEDS: Vancomycin 1gm/D5W 275ml IVPB SCH ×2 (16:41)
[2018-08-01] MEDS: Docusate 100mg cap ORAL SCH (17:34)
[2018-08-01] MEDS: Benazepril 10mg tab ORAL SCH (17:34)
--- NOTE | 2018-08-01 19:25 | NUR ---
HAND-OFF: Report given to DOC SMITH RN.
--- NOTE | 2018-08-01 19:45 | NUR ---
NURSE NOTES: Received patient in bed. On RA, no SOB, no acute distress, no c/o pain. A/O x 4. LAC IV intact, patent. Bed in lowest position, locked, alarms on. Call light in reach.
[2018-08-01 20:00] VITALS: BP 144/68
--- NOTE | 2018-08-01 20:50 | General Progress Note ---
Assessment/Plan Problem List: (1) Dacrocystitis ICD Codes: H04.309 - Unspecified dacryocystitis of unspecified lacrimal passage SNOMED: 53094337 (2) Dacryadenitis, acute ICD Codes: H04.019 - Acute dacryoadenitis, unspecified lacrimal gland SNOMED: 9799683 (3) UTI (urinary tract infection) ICD Codes: N39.0 - Urinary tract infection, site not specified SNOMED: 49938831 (4) Diabetes ICD Codes: E11.9 - Type 2 diabetes mellitus without complications SNOMED: 69874288 Qualifiers: (5) BPH (benign prostatic hyperplasia) ICD Codes: N40.0 - Benign prostatic hyperplasia without lower urinary tract symptoms SNOMED: 273088045 (6) UTI (urinary tract infection) ICD Codes: N39.0 - Urinary tract infection, site not specified SNOMED: 85662877 (7) Hypertension ICD Codes: I10 - Essential (primary) hypertension SNOMED: 58467728 Status: progressing Assessment/Plan fascial abscess is self draining appreciate dr adrian consult and visit started abx afebrile will f/u w dr palencia for f/u dacrocystitis/abscess Subjective ROS Limited/Unobtainable: Yes Allergies: Coded Allergies: No Known Allergies (Unverified , 05/27/15) Objective Last 24 Hour Vital Signs Date Time Temp Pulse Resp B/P (MAP) Pulse Ox O2 Delivery O2 Flow Rate FiO2 08/01/18 20:00 97.9 91 22 144/68 (93) 95 08/01/18 17:34 147/74 08/01/18 16:00 97.9 89 20 147/74 (98) 98 08/01/18 13:14 163/71 08/01/18 12:00 98.6 87 19 163/71 (101) 98 08/01/18 09:32 73 146/68 08/01/18 09:32 73 146/68 08/01/18 09:31 146/68 08/01/18 09:00 Room Air 08/01/18 08:00 97.3 73 18 146/68 (94) 97 08/01/18 06:19 147/67 08/01/18 04:12 97.4 70 20 167/65 (99) 95 1/16/19 23:37 99.0 68 20 131/55 (80) 97 07/31/18 21:12 160/85 07/31/18 21:11 86 160/85 07/31/18 21:00 Room Air Intake and Output 07/31/18 08/01/18 19:00 07:00 Intake Total 720 ml 395 ml Output Total 550 ml 150 ml Balance 170 ml 245 ml Intake Oral 720 ml 120 ml IV Total 275 ml Output Urine Total 550 ml 150 ml # Voids 2 Laboratory Tests 08/01/18 05:40: White Blood Count 9.8, Red Blood Count 3.30L, Hemoglobin 9.7L, Hematocrit 29.5L , Mean Corpuscular Volume 89, Mean Corpuscular Hemoglobin 29.3, Mean Corpuscular Hemoglobin Concent 32.7, Red Cell Distribution Width 11.9, Platelet Count 213, Mean Platelet Volume 7.8, Neutrophils (%) (Auto) 77.0H, Lymphocytes ( %) (Auto) 10.3L, Monocytes (%) (Auto) 10.5H, Eosinophils (%) (Auto) 0.5, Basophils (%) (Auto) 1.7, Sodium Level 139, Potassium Level 3.8, Chloride Level 105, Carbon Dioxide Level 26, Anion Gap 8, Blood Urea Nitrogen 16, Creatinine 1.5H, Estimat Glomerular Filtration Rate , Glucose Level 132H, Hemoglobin A1c 10.0H, Uric Acid 4.1, Calcium Level 8.2L, Phosphorus Level 4.3, Magnesium Level 1.9, Iron Level 69, Total Iron Binding Capacity 209L, Percent Iron Saturation 33 , Unsaturated Iron Binding 140, Ferritin 120, Total Bilirubin 0.4, Gamma Glutamyl Transpeptidase 12, Aspartate Amino Transf (AST/SGOT) 21, Alanine Aminotransferase (ALT/SGPT) 17, Alkaline Phosphatase 71, Total Creatine Kinase 375H, Troponin I 0.032, Pro-B-Type Natriuretic Peptide 589H, Total Protein 7.1, Albumin 2.5L, Globulin 4.6, Albumin/Globulin Ratio 0.5L, Triglycerides Level 59 , Cholesterol Level 131, LDL Cholesterol 67, HDL Cholesterol 49, Cholesterol/ HDL Ratio 2.7L, Vitamin B12 Level 444, Folate 18.3, Thyroid Stimulating Hormone (TSH) 1.034 Height (Feet): 5 Height (Inches): 9.00 Weight (Pounds): 202 Cardiovascular: normal rate Respiratory/Chest: lungs clear Abdomen: soft Aliyah Miller MD Aug 01, 2018 20:50
[2018-08-01] MEDS ORDERED: Levemir Flexpen SUBQ SCH (21:00)
[2018-08-01] MEDS: HydrALAZINE 50mg tab ORAL SCH (21:12)
[2018-08-01] MEDS: Tamsulosin 0.4mg cap ORAL SCH (21:13)
--- NOTE | 2018-08-01 22:15 | NUR ---
NURSE NOTES: Received a report from BENOIT Fish. Pt is in stable condition. AAOX4. Able to make needs known. No respiratory distress noted. On room air. No c/o pain/discomfort. IV site is patent and intact. Bed in lowest position. Bed alarm is on. Call light within reach. Will continue to monitor.
[2018-08-02] VITALS: BP 115/53
[2018-08-02 04:00] VITALS: BP 145/73
--- NOTE | 2018-08-02 06:00 | NUR ---
NURSE NOTES: Pt's blood glucose is 65. Gave 2 cups of juice.
--- NOTE | 2018-08-02 06:00 | NUR ---
Pt's blood glucose is 65. Gave 2 cups of juice.
[2018-08-02] MEDS: NovoLOG Insulin Flexpen SUBQ SCH ×5 (06:12→20:54)
--- NOTE | 2018-08-02 06:20 | NUR ---
NURSE NOTES: After giving 2 cups of juices, pt's blood sugar is now 85. Contacted Dr. Stuart about the pt's blood sugar from [address] Stuart ordered to change the Levemir from 34 to 22 units, and held the Starlix for this morning the 0600 one. Charge Nurse Cyndi made aware.
[2018-08-02] MEDS: HydrALAZINE 50mg tab ORAL SCH ×3 (06:44→20:53)
--- NOTE | 2018-08-02 07:45 | NUR ---
HAND-OFF: Report given to BENOIT Tamayo. Pt is in stable condition.
--- NOTE | 2018-08-02 07:50 | NUR ---
NURSE NOTES: Received patient on bed, awake. IV site intact and patent. Bed in low and locked position, call light within reach. No signs of respiratory distress or pain. Room board updated, will contineu to monitor.
[2018-08-02 08:00] VITALS: BP 119/46
[2018-08-02] MEDS ORDERED: Sennosides 8.6mg tab ORAL SCH (09:00)
[2018-08-02] MEDS: Benazepril 10mg tab ORAL SCH ×2 (09:27→17:02)
[2018-08-02] MEDS: Bethanechol 25mg Tab ORAL SCH ×3 (09:27→17:02)
[2018-08-02] MEDS: Docusate 100mg cap ORAL SCH ×3 (09:28→17:02)
[2018-08-02] MEDS: Ciprofloxacin Opth Soln 2.5ml RIGHT EYE SCH ×4 (09:28→20:55)
[2018-08-02] MEDS: Brimonidine 0.2% Opth Sol BOTH EYES SCH ×2 (09:29→17:03)
--- NOTE | 2018-08-02 10:45 | Infectious Diseases Prog Note ---
Assessment/Plan Assessment/Plan A: 1. Urinary tract infection with the Staph aureus, MRSA 2. Dacryoadenitis. 3. Diabetes mellitus. 4. Hypertension. 5. Chronic kidney disease. 6. Benign prostatic hypertrophy. RECOMMENDATIONS: continue with Levaquin and Cipro eye drops & IV vancomycin. We will follow up the cultures. Subjective ROS Limited/Unobtainable: No Constitutional: Reports: no symptoms, other - doing better Respiratory: Reports: no symptoms Gastrointestinal/Abdominal: Reports: no symptoms Genitourinary: Reports: frequency, other - incontinent Allergies: Coded Allergies: No Known Allergies (Unverified , 05/27/15) Objective Vital Signs Last 24 Hour Vital Signs Date Time Temp Pulse Resp B/P (MAP) Pulse Ox O2 Delivery O2 Flow Rate FiO2 08/02/18 09:28 69 119/46 08/02/18 09:27 119/46 08/02/18 09:27 69 119/46 08/02/18 09:00 Room Air 08/02/18 08:00 98.3 69 20 119/46 (70) 98 08/02/18 06:44 145/73 08/02/18 04:00 97.9 71 22 145/73 (97) 98 08/02/18 00:00 97.0 66 22 115/53 (73) 96 08/01/18 21:13 91 144/68 08/01/18 21:12 144/68 08/01/18 21:00 Room Air 08/01/18 20:00 97.9 91 22 144/68 (93) 95 08/01/18 17:34 147/74 08/01/18 16:00 97.9 89 20 147/74 (98) 98 08/01/18 13:14 163/71 08/01/18 12:00 98.6 87 19 163/71 (101) 98 Height (Feet): 5 Height (Inches): 9.00 Weight (Pounds): 202 HEENT: other - swelling in R inner eyes, site of lacrimal duct Respiratory/Chest: lungs clear Cardiovascular: normal rate Abdomen: soft, non tender, no organomegaly Extremities: no edema Neurologic/Psychiatric: alert, responsive Microbiology Date/Time Source Procedure Growth Status 07/30/18 11:10 Blood Blood Culture - Preliminary NO GROWTH AFTER 48 HOURS Resulted 07/30/18 11:10 Blood Blood Culture - Preliminary NO GROWTH AFTER 48 HOURS Resulted 07/30/18 11:10 Nasal Nares Influenza Types A,B Antigen (BIA) - Final Complete 07/30/18 11:10 Urine,Clean Catch Urine Culture - Final Staphylococcus Aureus - Mrsa Complete 07/31/18 10:00 Eye Right Gram Stain - Final Resulted 07/31/18 10:00 Eye Right Eye Culture - Preliminary Resulted Current Medications Medications (Trade) Dose Ordered Sig/Mayank Route PRN Reason Start Time Stop Time Status Last Admin Dose Admin Amlodipine Besylate (Norvasc) 10 mg DAILY ORAL 07/31/18 09:00 08/30/18 08:59 08/02/18 09:27 Benazepril HCl (Lotensin) 20 mg BID ORAL 08/01/18 18:00 08/30/18 08:59 08/02/18 09:27 Bethanechol Chloride (Urecholine) 25 mg THREE TIMES A DAY ORAL 07/30/18 18:00 08/29/18 17:59 08/02/18 09:27 Brimonidine Tartrate (Alphagan) 1 drop BID BOTH EYES 07/30/18 18:00 08/29/18 17:59 08/02/18 09:29 Ciprofloxacin (Ciloxan Opth Soln) 1 drop QID RIGHT EYE 07/31/18 13:00 08/07/18 12:59 08/02/18 09:28 Clonidine HCl (Catapres Tab) 0.1 mg Q4H PRN ORAL sbp >170 07/30/18 15:30 08/29/18 15:29 Dextrose (Dextrose 50%) 25 ml Q30M PRN IV Hypoglycemia 07/30/18 16:30 08/29/18 16:29 Dextrose (Dextrose 50%) 50 ml Q30M PRN IV Hypoglycemia 07/30/18 16:30 08/29/18 16:29 Docusate Sodium (Colace) 100 mg TID ORAL 08/01/18 18:00 08/31/18 17:59 08/02/18 09:28 Finasteride (Proscar) 5 mg DAILY ORAL 07/31/18 09:00 08/30/18 08:59 08/02/18 09:27 Hydralazine HCl (Apresoline) 100 mg Q8HR ORAL 08/01/18 22:00 08/29/18 17:59 08/02/18 06:44 Insulin Aspart (NovoLOG) BEFORE MEALS AND HS SUBQ 08/01/18 06:30 08/31/18 06:29 08/01/18 21:17 Insulin Detemir (Levemir) 22 units BEDTIME SUBQ 08/02/18 21:00 08/29/18 20:59 Levofloxacin (Levaquin) 750 mg QOD ORAL 08/01/18 09:00 08/08/18 08:59 08/01/18 09:31 Magnesium Hydroxide (Mom) 30 ml Q4H PRN ORAL Constipation 08/01/18 10:30 08/31/18 10:29 Metoprolol Tartrate (Lopressor) 100 mg Q12HR ORAL 08/01/18 21:00 08/29/18 20:59 08/02/18 09:28 Nateglinide (Starlix) 120 mg TIAC ORAL 07/30/18 16:30 08/29/18 16:29 08/01/18 16:41 Pantoprazole (Protonix) 40 mg DAILY ORAL 07/31/18 09:00 08/30/18 08:59 08/02/18 09:38 Potassium Chloride (K-Dur) 20 meq DAILY ORAL 07/31/18 09:00 08/30/18 08:59 08/02/18 09:28 Sennosides (Senokot) 8.6 mg DAILY ORAL 08/02/18 10:30 09/01/18 10:29 Tamsulosin HCl (Flomax) 0.8 mg BEDTIME ORAL 07/31/18 21:00 08/29/18 20:59 08/01/18 21:13 Vancomycin HCl (Vanco rx to dose) 1 ea DAILY PRN MISC Per rx protocol 07/31/18 15:15 08/30/18 15:14 Vancomycin HCl 1 gm/Dextrose 275 ml @ 183.708 mls/hr Q24H IVPB 07/31/18 16:00 08/05/18 15:59 08/01/18 16:41 Viktor Miranda MD Aug 02, 2018 10:45
[2018-08-02 12:00] VITALS: BP 122/51
[2018-08-02] MEDS: Sennosides 8.6mg tab ORAL SCH (12:06)
--- NOTE | 2018-08-02 14:15 | Nephrology Progress Note ---
Assessment/Plan Problem List: (1) Dacrocystitis (2) Diabetic nephropathy (3) Hypertension (4) BPH (benign prostatic hyperplasia) (5) Anemia (6) UTI (urinary tract infection) Assessment Diabetic Nephropathy / proteinuria HTN IDDM Dacrocystitis - improving BPH Anemia UTI Plan no labs today Adjust BP meds Monitor Renal parameters Antibiotics per ID 2D echo Left ventricular ejection fraction estimated to be 60-65 %. SERGIO kidney multiple bilateral renal cysts. Urine studies Subjective ROS Limited/Unobtainable: No Objective Objective Last 24 Hour Vital Signs Date Time Temp Pulse Resp B/P (MAP) Pulse Ox O2 Delivery O2 Flow Rate FiO2 08/02/18 13:34 122/51 08/02/18 12:00 98.8 62 18 122/51 (74) 98 08/02/18 09:28 69 119/46 08/02/18 09:27 119/46 08/02/18 09:27 69 119/46 08/02/18 09:00 Room Air 08/02/18 08:00 98.3 69 20 119/46 (70) 98 08/02/18 06:44 145/73 08/02/18 04:00 97.9 71 22 145/73 (97) 98 08/02/18 00:00 97.0 66 22 115/53 (73) 96 08/01/18 21:13 91 144/68 08/01/18 21:12 144/68 08/01/18 21:00 Room Air 08/01/18 20:00 97.9 91 22 144/68 (93) 95 08/01/18 17:34 147/74 08/01/18 16:00 97.9 89 20 147/74 (98) 98 Intake and Output 08/01/18 08/02/18 18:59 06:59 Intake Total 1115.000 ml 120 ml Balance 1115.000 ml 120 ml Intake Oral 840 ml 120 ml IV Total 275.000 ml # Voids 6 2 Height (Feet): 5 Height (Inches): 9.00 Weight (Pounds): 202 General Appearance: no apparent distress EENT: other - dacrocystitis less swollen Cardiovascular: normal rate Respiratory/Chest: decreased breath sounds Abdomen: soft Rodrigue Mackenzie MD Aug 02, 2018 14:15
[2018-08-02 16:00] VITALS: BP 135/65
[2018-08-02] MEDS: Vancomycin 1gm/D5W 275ml IVPB SCH ×2 (17:04)
--- NOTE | 2018-08-02 17:23 | NUR ---
CASE MANAGEMENT:REVIEW 08/02/18 SI: DACRYOCYSTITIS. ACUTE DACRYADENITIS. UTI 98.7 69 18 135/65 98% ON RA IS: IV VANCOMYCIN Q24 CIPRO RT EYE QID LEVEMIR SQ QHS HYDRALAZINE PO Q8HRS LOPRESSOR PO Q12 LOTENSIN PO BID NORVASC PO QD K-DUR PO QD : MED/SURG STATUS DCP: FROM [facility]
--- NOTE | 2018-08-02 19:45 | NUR ---
NURSE NOTES: Received patient in bed. On RA, no SOB, no acute distress, no c/o pain. LFA IV intact, patent running ABX. In stable condition. Bed in lowest position, locked, alarms on. Call light in reach.
--- NOTE | 2018-08-02 19:49 | NUR ---
HAND-OFF: Report given to BENOIT Romero.
[2018-08-02 20:00] VITALS: BP 130/63
[2018-08-02] MEDS: Tamsulosin 0.4mg cap ORAL SCH (20:53)
[2018-08-02] MEDS ORDERED: Levemir Flexpen SUBQ SCH (21:00)
--- NOTE | 2018-08-02 21:39 | General Progress Note ---
Assessment/Plan Problem List: (1) Dacrocystitis ICD Codes: H04.309 - Unspecified dacryocystitis of unspecified lacrimal passage SNOMED: 50806942 (2) Dacryadenitis, acute ICD Codes: H04.019 - Acute dacryoadenitis, unspecified lacrimal gland SNOMED: 5849702 (3) UTI (urinary tract infection) ICD Codes: N39.0 - Urinary tract infection, site not specified SNOMED: 56755559 (4) Diabetes ICD Codes: E11.9 - Type 2 diabetes mellitus without complications SNOMED: 13853738 Qualifiers: (5) BPH (benign prostatic hyperplasia) ICD Codes: N40.0 - Benign prostatic hyperplasia without lower urinary tract symptoms SNOMED: 213245776 (6) UTI (urinary tract infection) ICD Codes: N39.0 - Urinary tract infection, site not specified SNOMED: 91070449 (7) Hypertension ICD Codes: I10 - Essential (primary) hypertension SNOMED: 53560237 Status: progressing Assessment/Plan fascial abscess is self draining appreciate dr adrian consult and visit uti improving dc in am w abx will f/u w dr palencia for f/u dacrocystitis/abscess Subjective ROS Limited/Unobtainable: Yes Constitutional: Reports: no symptoms Allergies: Coded Allergies: No Known Allergies (Unverified , 05/27/15) Objective Last 24 Hour Vital Signs Date Time Temp Pulse Resp B/P (MAP) Pulse Ox O2 Delivery O2 Flow Rate FiO2 08/02/18 21:00 Room Air 08/02/18 20:53 66 130/63 08/02/18 20:53 130/63 08/02/18 20:00 97.7 66 19 130/63 (85) 98 08/02/18 17:02 135/65 08/02/18 16:00 98.7 69 18 135/65 (88) 98 08/02/18 13:34 122/51 08/02/18 12:00 98.8 62 18 122/51 (74) 98 08/02/18 09:28 69 119/46 08/02/18 09:27 119/46 08/02/18 09:27 69 119/46 08/02/18 09:00 Room Air 08/02/18 08:00 98.3 69 20 119/46 (70) 98 08/02/18 06:44 145/73 08/02/18 04:00 97.9 71 22 145/73 (97) 98 08/02/18 00:00 97.0 66 22 115/53 (73) 96 Intake and Output 08/01/18 08/02/18 19:00 07:00 Intake Total 1115.000 ml 120 ml Balance 1115.000 ml 120 ml Intake Oral 840 ml 120 ml IV Total 275.000 ml # Voids 6 2 Height (Feet): 5 Height (Inches): 9.00 Weight (Pounds): 202 Neck: supple Cardiovascular: normal rate Respiratory/Chest: lungs clear Abdomen: soft Aliyah Miller MD Aug 02, 2018 21:39
[2018-08-03] VITALS: BP 118/59
[2018-08-03 04:00] VITALS: BP 124/57
[2018-08-03] MEDS: NovoLOG Insulin Flexpen SUBQ SCH ×2 (05:42→11:54)
[2018-08-03 05:52] LABS: BASOPHILS % (AUTO) 1.2 % (0.0-2.0); EOSINOPHILS % (AUTO) 3.8 % (0.0-3.0); HEMATOCRIT 28.1 % (42.0-52.0); HEMOGLOBIN 9.3 G/DL (14.2-18.0); LYMPHOCYTES % (AUTO) 23.9 % (20.0-45.0); MEAN CORPUSCULAR VOLUME 89 FL (80-99); MONOCYTES % (AUTO) 15.5 % (1.0-10.0); NEUTROPHILS % (AUTO) 55.7 % (45.0-75.0); PLATELET COUNT 265 K/UL (150-450); RED BLOOD COUNT 3.17 M/UL (4.70-6.10); RED CELL DISTRIBUTION WIDTH 11.5 % (11.6-14.8); WHITE BLOOD COUNT 8.8 K/UL (4.8-10.8)
[2018-08-03] MEDS: HydrALAZINE 50mg tab ORAL SCH ×2 (05:54→14:14)
[2018-08-03 06:02] LABS: ALANINE AMINOTRANSFERASE 19 U/L (12-78); ALBUMIN 2.5 G/DL (3.4-5.0); ALBUMIN/GLOBULIN RATIO 0.6 (1.0-2.7); ALKALINE PHOSPHATASE 67 U/L (46-116); ANION GAP 8 mmol/L (5-15); ASPARTATE AMINO TRANSFERASE 25 U/L (15-37); BILIRUBIN,TOTAL 0.8 MG/DL (0.2-1.0); BLOOD UREA NITROGEN 21 mg/dL (7-18); CALCIUM 8.1 MG/DL (8.5-10.1); CARBON DIOXIDE 25 MMOL/L (21-32); CHLORIDE 105 MMOL/L (98-107); CREATININE 1.8 MG/DL (0.55-1.30); PHOSPHORUS 4.5 MG/DL (2.5-4.9); POTASSIUM 4.3 MMOL/L (3.5-5.1); SODIUM 138 MMOL/L (136-145)
--- NOTE | 2018-08-03 07:37 | NUR ---
NURSE NOTES: Received report from BENOIT Romero. patient is alert, verbally responsive. no distress noted. no c/o pain at this time. bed in lowest position. call light within reach. will continue to monitor.
[2018-08-03 08:00] VITALS: BP 137/61
[2018-08-03] MEDS: Brimonidine 0.2% Opth Sol BOTH EYES SCH ×2 (09:05→17:16)
[2018-08-03] MEDS: Ciprofloxacin Opth Soln 2.5ml RIGHT EYE SCH ×3 (09:05→17:16)
[2018-08-03] MEDS: Benazepril 10mg tab ORAL SCH (09:06)
[2018-08-03] MEDS: Docusate 100mg cap ORAL SCH ×3 (09:06→17:16)
[2018-08-03] MEDS: Bethanechol 25mg Tab ORAL SCH ×3 (09:06→17:16)
[2018-08-03] MEDS: Sennosides 8.6mg tab ORAL SCH (09:06)
--- NOTE | 2018-08-03 10:51 | Nephrology Progress Note ---
Assessment/Plan Problem List: (1) Dacrocystitis (2) Diabetic nephropathy (3) Hypertension (4) BPH (benign prostatic hyperplasia) (5) Anemia (6) UTI (urinary tract infection) Assessment Diabetic Nephropathy / proteinuria HTN IDDM Dacrocystitis - improving BPH Anemia UTI Plan stop Lasix Adjust BP meds Monitor Renal parameters Antibiotics per ID 2D echo Left ventricular ejection fraction estimated to be 60-65 %. SERGIO kidney multiple bilateral renal cysts. Urine studies Subjective ROS Limited/Unobtainable: No Constitutional: Reports: malaise Objective Objective Last 24 Hour Vital Signs Date Time Temp Pulse Resp B/P (MAP) Pulse Ox O2 Delivery O2 Flow Rate FiO2 08/03/18 09:06 74 137/61 08/03/18 09:06 137/61 08/03/18 09:06 74 137/61 08/03/18 09:00 Room Air 08/03/18 08:00 98.0 74 19 137/61 (86) 98 08/03/18 05:54 124/57 08/03/18 04:00 97.7 68 20 124/57 (79) 96 08/03/18 00:00 98.1 65 20 118/59 (78) 96 08/02/18 21:00 Room Air 08/02/18 20:53 66 130/63 08/02/18 20:53 130/63 08/02/18 20:00 97.7 66 19 130/63 (85) 98 08/02/18 17:02 135/65 08/02/18 16:00 98.7 69 18 135/65 (88) 98 08/02/18 13:34 122/51 08/02/18 12:00 98.8 62 18 122/51 (74) 98 Intake and Output 08/02/18 08/03/18 19:00 07:00 Intake Total 543.708 ml 300 ml Output Total 450 ml 400 ml Balance 93.708 ml -100 ml Intake Oral 360 ml 300 ml IV Total 183.708 ml Output Urine Total 450 ml 400 ml # Voids 3 Laboratory Tests 08/03/18 05:05: White Blood Count 8.8, Red Blood Count 3.17L, Hemoglobin 9.3L, Hematocrit 28.1L , Mean Corpuscular Volume 89, Mean Corpuscular Hemoglobin 29.2, Mean Corpuscular Hemoglobin Concent 33.0, Red Cell Distribution Width 11.5L, Platelet Count 265, Mean Platelet Volume 7.9, Neutrophils (%) (Auto) 55.7, Lymphocytes (%) (Auto) 23.9, Monocytes (%) (Auto) 15.5H, Eosinophils (%) (Auto) 3.8H, Basophils (%) (Auto) 1.2, Sodium Level 138, Potassium Level 4.3, Chloride Level 105, Carbon Dioxide Level 25, Anion Gap 8, Blood Urea Nitrogen 21H, Creatinine 1.8H, Estimat Glomerular Filtration Rate , Glucose Level 83, Uric Acid 4.8, Calcium Level 8.1L, Phosphorus Level 4.5, Magnesium Level 2.0, Total Bilirubin 0.8, Aspartate Amino Transf (AST/SGOT) 25, Alanine Aminotransferase ( ALT/SGPT) 19, Alkaline Phosphatase 67, C-Reactive Protein, Quantitative 3.9H, Total Protein 6.9, Albumin 2.5L, Globulin 4.4, Albumin/Globulin Ratio 0.6L Height (Feet): 5 Height (Inches): 9.00 Weight (Pounds): 202 General Appearance: no apparent distress Objective no change Rodrigue Mackenzie MD Aug 03, 2018 10:51
[2018-08-03 12:00] VITALS: BP 129/70
--- NOTE | 2018-08-03 14:48 | General Progress Note ---
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 SNOMED: 02593361, 920506684 (2) Hypertension ICD Codes: I10 - Essential (primary) hypertension SNOMED: 42116554 (3) Mastoiditis of right side ICD Codes: H70.91 - Unspecified mastoiditis, right ear SNOMED: 29252904 Assessment/Plan continue Levemir 22 units qhs continue Starlix 120 mg ac tid continue NISS ac / hs Subjective Allergies: Coded Allergies: No Known Allergies (Unverified , 05/27/15) All Systems: reviewed and negative except above Subjective events noted glycemic control improved without hypoglycemia Objective Last 24 Hour Vital Signs Date Time Temp Pulse Resp B/P (MAP) Pulse Ox O2 Delivery O2 Flow Rate FiO2 08/03/18 14:14 129/70 08/03/18 12:00 97.7 71 19 129/70 (89) 98 08/03/18 09:06 74 137/61 08/03/18 09:06 137/61 08/03/18 09:06 74 137/61 08/03/18 09:00 Room Air 08/03/18 08:00 98.0 74 19 137/61 (86) 98 08/03/18 05:54 124/57 08/03/18 04:00 97.7 68 20 124/57 (79) 96 08/03/18 00:00 98.1 65 20 118/59 (78) 96 08/02/18 21:00 Room Air 08/02/18 20:53 66 130/63 08/02/18 20:53 130/63 08/02/18 20:00 97.7 66 19 130/63 (85) 98 08/02/18 17:02 135/65 08/02/18 16:00 98.7 69 18 135/65 (88) 98 Intake and Output 08/02/18 08/03/18 19:00 07:00 Intake Total 543.708 ml 300 ml Output Total 450 ml 400 ml Balance 93.708 ml -100 ml Intake Oral 360 ml 300 ml IV Total 183.708 ml Output Urine Total 450 ml 400 ml # Voids 3 Laboratory Tests 08/03/18 05:05: White Blood Count 8.8, Red Blood Count 3.17L, Hemoglobin 9.3L, Hematocrit 28.1L , Mean Corpuscular Volume 89, Mean Corpuscular Hemoglobin 29.2, Mean Corpuscular Hemoglobin Concent 33.0, Red Cell Distribution Width 11.5L, Platelet Count 265, Mean Platelet Volume 7.9, Neutrophils (%) (Auto) 55.7, Lymphocytes (%) (Auto) 23.9, Monocytes (%) (Auto) 15.5H, Eosinophils (%) (Auto) 3.8H, Basophils (%) (Auto) 1.2, Sodium Level 138, Potassium Level 4.3, Chloride Level 105, Carbon Dioxide Level 25, Anion Gap 8, Blood Urea Nitrogen 21H, Creatinine 1.8H, Estimat Glomerular Filtration Rate , Glucose Level 83, Uric Acid 4.8, Calcium Level 8.1L, Phosphorus Level 4.5, Magnesium Level 2.0, Total Bilirubin 0.8, Aspartate Amino Transf (AST/SGOT) 25, Alanine Aminotransferase ( ALT/SGPT) 19, Alkaline Phosphatase 67, C-Reactive Protein, Quantitative 3.9H, Total Protein 6.9, Albumin 2.5L, Globulin 4.4, Albumin/Globulin Ratio 0.6L Height (Feet): 5 Height (Inches): 9.00 Weight (Pounds): 202 General Appearance: no apparent distress Neck: normal alignment Cardiovascular: normal rate Respiratory/Chest: decreased breath sounds Abdomen: normal bowel sounds Edema: 1+ Arm (L), 1+ Arm (R), 1+ Leg (L), 1+ Leg (R), 1+ Pedal (L), 1+ Pedal ( R), 1+ Generalized Objective Current Medications Medications (Trade) Dose Ordered Sig/Mayank Route PRN Reason Start Time Stop Time Status Last Admin Dose Admin Amlodipine Besylate (Norvasc) 10 mg DAILY ORAL 07/31/18 09:00 08/30/18 08:59 08/03/18 09:06 Benazepril HCl (Lotensin) 20 mg DAILY ORAL 08/04/18 09:00 08/30/18 08:59 Bethanechol Chloride (Urecholine) 25 mg THREE TIMES A DAY ORAL 07/30/18 18:00 08/29/18 17:59 08/03/18 14:13 Brimonidine Tartrate (Alphagan) 1 drop BID BOTH EYES 07/30/18 18:00 08/29/18 17:59 08/03/18 09:05 Ciprofloxacin (Ciloxan Opth Soln) 1 drop QID RIGHT EYE 07/31/18 13:00 08/07/18 12:59 08/03/18 14:13 Clonidine HCl (Catapres Tab) 0.1 mg Q4H PRN ORAL sbp >170 07/30/18 15:30 08/29/18 15:29 Dextrose (Dextrose 50%) 25 ml Q30M PRN IV Hypoglycemia 07/30/18 16:30 08/29/18 16:29 Dextrose (Dextrose 50%) 50 ml Q30M PRN IV Hypoglycemia 07/30/18 16:30 08/29/18 16:29 Docusate Sodium (Colace) 100 mg TID ORAL 08/01/18 18:00 08/31/18 17:59 08/03/18 14:13 Finasteride (Proscar) 5 mg DAILY ORAL 07/31/18 09:00 08/30/18 08:59 08/03/18 09:06 Hydralazine HCl (Apresoline) 100 mg Q8HR ORAL 08/01/18 22:00 08/29/18 17:59 08/03/18 14:14 Insulin Aspart (NovoLOG) BEFORE MEALS AND HS SUBQ 08/01/18 06:30 08/31/18 06:29 08/03/18 11:54 Insulin Detemir (Levemir) 22 units BEDTIME SUBQ 08/02/18 21:00 08/29/18 20:59 08/02/18 20:54 Magnesium Hydroxide (Mom) 30 ml Q4H PRN ORAL Constipation 08/01/18 10:30 08/31/18 10:29 Metoprolol Tartrate (Lopressor) 100 mg Q12HR ORAL 08/01/18 21:00 08/29/18 20:59 08/03/18 09:06 Nateglinide (Starlix) 120 mg TIAC ORAL 07/30/18 16:30 08/29/18 16:29 08/03/18 11:53 Pantoprazole (Protonix) 40 mg DAILY ORAL 07/31/18 09:00 08/30/18 08:59 08/03/18 09:07 Sennosides (Senokot) 8.6 mg DAILY ORAL 08/02/18 10:30 09/01/18 10:29 08/03/18 09:06 Tamsulosin HCl (Flomax) 0.8 mg BEDTIME ORAL 07/31/18 21:00 08/29/18 20:59 08/02/18 20:53 Vancomycin HCl (Vanco rx to dose) 1 ea DAILY PRN MISC Per rx protocol 07/31/18 15:15 08/30/18 15:14 Vancomycin HCl 1 gm/Dextrose 275 ml @ 183.708 mls/hr Q24H IVPB 07/31/18 16:00 08/05/18 15:59 08/02/18 17:04 Item Value Date Time Bedside Blood Glucose 222 mg/dl H 08/03/18 1154 Bedside Blood Glucose 87 mg/dl 08/03/18 0618 Bedside Blood Glucose 292 mg/dl H 08/02/18 2100 Bedside Blood Glucose 175 mg/dl H 08/02/18 1705 Bedside Blood Glucose 153 mg/dl H 08/02/18 1206 Pj Stuart MD Aug 03, 2018 14:48
[2018-08-03 16:00] VITALS: BP 128/58
--- NOTE | 2018-08-03 16:15 | NUR ---
NURSE NOTES: Arranged ambulance for discharge to [facility] @ 1700. spoke with
[2018-08-03] MEDS: Vancomycin 1gm/D5W 275ml IVPB SCH ×2 (17:11)
[2018-08-03] MEDS ORDERED: NovoLOG Insulin Flexpen SUBQ SCH ×2 (17:30)
--- NOTE | 2018-08-03 18:33 | NUR ---
NURSE NOTES: Ambulance will be late around after shift change. Spoke with Sreedhar.
--- NOTE | 2018-08-03 18:51 | General Progress Note ---
Assessment/Plan Problem List: (1) Dacrocystitis ICD Codes: H04.309 - Unspecified dacryocystitis of unspecified lacrimal passage SNOMED: 40282639 (2) Dacryadenitis, acute ICD Codes: H04.019 - Acute dacryoadenitis, unspecified lacrimal gland SNOMED: 6565243 (3) UTI (urinary tract infection) ICD Codes: N39.0 - Urinary tract infection, site not specified SNOMED: 81166199 (4) Diabetes ICD Codes: E11.9 - Type 2 diabetes mellitus without complications SNOMED: 68111758 Qualifiers: (5) BPH (benign prostatic hyperplasia) ICD Codes: N40.0 - Benign prostatic hyperplasia without lower urinary tract symptoms SNOMED: 359128106 (6) UTI (urinary tract infection) ICD Codes: N39.0 - Urinary tract infection, site not specified SNOMED: 63209003 (7) Hypertension ICD Codes: I10 - Essential (primary) hypertension SNOMED: 54259050 Assessment/Plan fascial abscess is self draining dc today will f/u w abx as outpatient will f/u w dr palencia for f/u dacrocystitis/absce Subjective ROS Limited/Unobtainable: Yes Allergies: Coded Allergies: No Known Allergies (Unverified , 05/27/15) Objective Last 24 Hour Vital Signs Date Time Temp Pulse Resp B/P (MAP) Pulse Ox O2 Delivery O2 Flow Rate FiO2 08/03/18 16:00 98.0 62 18 128/58 (81) 95 08/03/18 14:14 129/70 08/03/18 12:00 97.7 71 19 129/70 (89) 98 08/03/18 09:06 74 137/61 08/03/18 09:06 137/61 08/03/18 09:06 74 137/61 08/03/18 09:00 Room Air 08/03/18 08:00 98.0 74 19 137/61 (86) 98 08/03/18 05:54 124/57 08/03/18 04:00 97.7 68 20 124/57 (79) 96 08/03/18 00:00 98.1 65 20 118/59 (78) 96 08/02/18 21:00 Room Air 08/02/18 20:53 66 130/63 08/02/18 20:53 130/63 08/02/18 20:00 97.7 66 19 130/63 (85) 98 Intake and Output 08/02/18 08/03/18 18:59 06:59 Intake Total 543.708 ml 300 ml Output Total 450 ml 400 ml Balance 93.708 ml -100 ml Intake Oral 360 ml 300 ml IV Total 183.708 ml Output Urine Total 450 ml 400 ml # Voids 3 Laboratory Tests 08/03/18 05:05: White Blood Count 8.8, Red Blood Count 3.17L, Hemoglobin 9.3L, Hematocrit 28.1L , Mean Corpuscular Volume 89, Mean Corpuscular Hemoglobin 29.2, Mean Corpuscular Hemoglobin Concent 33.0, Red Cell Distribution Width 11.5L, Platelet Count 265, Mean Platelet Volume 7.9, Neutrophils (%) (Auto) 55.7, Lymphocytes (%) (Auto) 23.9, Monocytes (%) (Auto) 15.5H, Eosinophils (%) (Auto) 3.8H, Basophils (%) (Auto) 1.2, Sodium Level 138, Potassium Level 4.3, Chloride Level 105, Carbon Dioxide Level 25, Anion Gap 8, Blood Urea Nitrogen 21H, Creatinine 1.8H, Estimat Glomerular Filtration Rate , Glucose Level 83, Uric Acid 4.8, Calcium Level 8.1L, Phosphorus Level 4.5, Magnesium Level 2.0, Total Bilirubin 0.8, Aspartate Amino Transf (AST/SGOT) 25, Alanine Aminotransferase ( ALT/SGPT) 19, Alkaline Phosphatase 67, C-Reactive Protein, Quantitative 3.9H, Total Protein 6.9, Albumin 2.5L, Globulin 4.4, Albumin/Globulin Ratio 0.6L 08/03/18 15:00: Vancomycin Level Trough 10.6 Height (Feet): 5 Height (Inches): 9.00 Weight (Pounds): 202 Cardiovascular: normal rate Respiratory/Chest: lungs clear Aliyah Miller MD Aug 03, 2018 18:51
--- NOTE | 2018-08-03 19:27 | NUR ---
HAND-OFF: Report given to BENOIT Pruitt.
--- NOTE | 2018-08-03 19:35 | NUR ---
NURSE NOTES: Received patient comfortably sleeping,awaiting ambulance for discharge.
[2018-08-03 20:00] VITALS: BP 157/66
--- NOTE | 2018-08-03 20:46 | NUR ---
NURSE NOTES: Discharged to [facility] by ambulance as ordered.
[2018-08-04] MEDS ORDERED: Benazepril 10mg tab ORAL SCH (09:00)
--- NOTE | 2018-08-05 14:24 | Discharge Summary ---
Discharge Summary Discharge Summary _ 5DATE OF ADMISSION: 07/30/2018 DATE OF DISCHARGE: 08/03/2018 DISCHARGED BY: DR. Miller REASON FOR ADMISSION: 88 years old male with past medical history of hypertension, diabetes mellitus, chronic kidney disease, presented from the assisted living with generalized weakness and facial swelling for the past 4 days. There was also concern for possible urinary tract infection. Patient reported swelling around right eye. Upon evaluation vital signs reveal elevated blood pressure 157/62. Laboratory workup revealed mild leukocytosis, hemoglobin 11.5 ,hematocrit 25.2. Potassium 3.4, BUN 14 creatinine 1.6 . Glucose 314. Troponin negative; EKG revealed normal sinus rhythm, no acute ischemic changes . Chest x-ray revealed no acute cardiopulmonary pathology. Urinalysis revealed many bacteria , + 3 leukocyte esterase and no pyuria. Patient started on empiric antibiotics and admitted to Med Surg floor for further management. CONSULTANTS: ID specialist Dr. Varner wool dyer Dr. Mackenzie lead miner Dr. Stuart HOSPITAL COURSE: Patient admitted to medical surgical floor and initially started on IV fluids and empiric antibiotics. ID specialist ,wool dyer ,and lead miner closely followed. Patient initially was on broad-spectrum antibiotic as per ID recommendations. Blood cultures were negative. Influenza screen test was negative. Urine culture revealed MRSA. Culture from the right eye revealed MRSA. Antibiotic regimen optimized as per infectious disease recommendations ; continue Levaquin, vancomycin and Cipro eye drops at the facility to complete the course of treatment. Leukocytosis resolved ,patient remained afebrile. Renal ultrasound revealed multiply bilateral cysts. No obvious hydronephrosis was noted. Echocardiogram revealed preserved ejection fraction 60-65% with mild left ventricular hypertrophy. No evidence of wall motion abnormality. Right ventricular systolic pressure of 47 consistent with moderate pulmonary hypertension. Tape Cutter closely followed. Antihypertensive medication regimen was optimized to bring blood pressure under control. Renal parameters and electrolytes were closely monitored. Electrolytes corrected as needed. Nephrotoxins were avoided. Urine studies were done. Prior to discharge BUN 21 creatinine 1.8. No change in renal parameters. Flomax and Proscar were continued. Hemoglobin and hematocrit were closely monitored with goal to keep hemoglobin above 7. Anemia workup was consistent with anemia of chronic disease. Stable iron , B12 and folate. TSH within normal limits. GI prophylaxis provided. Bowel regimen instituted. Hemoglobin A1c -10.0 clearly not at goal. Blood sugar was managed with as per lead miner recommendation with long- acting Levemir, pre-meal Starlix and sliding scale of insulin as needed. Patient will need further optimization of anti-glycemic regimen as outpatient with frequent and continuos follow up with primary care provider. Patient clinically stabilized and was ready for transfer back to assisted living. FINAL DIAGNOSES: UTI with MRSA Dacryoadenitis Diabetes management out of control ( [id number]) with diabetic nephropathy Chronic kidney disease due to diabetic nephropathy Hypertension Anemia BPH DISCHARGE MEDICATIONS: See Medication Reconciliation list. DISCHARGE INSTRUCTIONS: Patient was discharged to assisted living. Follow-up with primary care provider next week. I have been assigned to dictate discharge summary for this account. I was not involved in the patient's management. Vee Lugo NP Aug 05, 2018 14:24
== END 2018-08-03 20:45 | disposition home or self-care (01) | DRG 690 ==
LOC: EDUNIT# 10:40 → EDBD 10:40 → EMR 12:00 → 4E 12:23 → EDBEDREQ 13:02
DX: N39.0 Urinary tract infection, site not specified (principal); L04.0 Acute lymphadenitis of face, head and neck; I12.9 Hypertensive chronic kidney disease with stage 1 through stage 4 chronic kidney disease, or unspecified chronic kidney disease; E11.22 Type 2 diabetes mellitus with diabetic chronic kidney disease; N18.9 Chronic kidney disease, unspecified; N40.0 Benign prostatic hyperplasia without lower urinary tract symptoms; B95.62 Methicillin resistant Staphylococcus aureus infection as the cause of diseases classified elsewhere; E11.65 Type 2 diabetes mellitus with hyperglycemia; E11.21 Type 2 diabetes mellitus with diabetic nephropathy; D64.9 Anemia, unspecified; H04.011 Acute dacryoadenitis, right lacrimal gland; H70.91 Unspecified mastoiditis, right ear
CPT/HCPCS: 36415; 71045; 76770; 80053; 80061; 80202; 81003; 82550; 82553; 82607; 82728; 82746; 82962; 82977; 83036; 83540; 83550; 83605; 83690; 83735; 83880; 84100; 84300; 84443; 84484; 84550; 85025; 85610; 85730; 86140; 86710; 87040; 87070; 87086; 87181; 87205; 93005; 93306; 96361; 96365; 99285; J1815; J8499; S0077; S5561

== ENCOUNTER 2018-09-04 15:12 | Inpatient (IN) | payer MEDICARE ==
[~2018-09-04] VITALS: Ht 180.3 cm; Wt 89.4 kg
[2018-09-04 15:20] VITALS: BP 139/103
--- NOTE | 2018-09-04 15:20 | NUR ---
ED Nurse Note: PT BROUGHT IN BY AMBULANCE FROM [facility]. AOX4. PT C/O NAUSEA AND MULTIPLE EPISODES OF VOMITING X THIS AFTERNOON. PT STATES HE VOMITED UNDIGESTED FOOD. PT ALSO C/O GENERALIZED WEAKNESS. ACTIVE BOWEL SOUNDS IN ALL QUADRANTS. ABDOMEN NONDISTENDED AND NONTENDER TO PALPATION. PT DENIES PAIN.
[2018-09-04] MEDS ORDERED: metroNIDAZOLE 500mg tab ORAL ONE (15:30)
[2018-09-04] MEDS: Cefepime HCl 2 GM in NS 110 ML IV SCH (16:03)
--- NOTE | 2018-09-04 16:23 | NUR ---
ED Nurse Note: pcxr done and pt tolerating po meds well. pt awake and alert.
[2018-09-04 16:24] LABS: HEMOGLOBIN 11.7 G/DL (14.2-18.0); MEAN CORPUSCULAR VOLUME 88 FL (80-99); PLATELET COUNT 148 K/UL (150-450); RED BLOOD COUNT 3.98 M/UL (4.70-6.10); RED CELL DISTRIBUTION WIDTH 12.7 % (11.6-14.8)
--- NOTE | 2018-09-04 16:43 | Diagnostic Imaging Report ---
Indication: Abdominal pain, nausea, vomiting, fever Technique: Spiral acquisitions obtained through the abdomen and pelvis. No oral contrast utilized, per emergency room physician request No IV contrast utilized, per referring physician request.. Multiplanar reconstructions were generated. Total dose length product 994.8 mGycm. CTDIvol(s) 17.49 mGy. Dose reduction achieved using automated exposure control Comparison: None Findings: Lack of enteric contrast limits assessment of the GI tract. There is also some image degradation due to motion artifact. There is colonic diverticulosis. No evidence of diverticulitis. The appendix is normal. There is diastasis of the rectus abdominis tendon without dahiana herniation. There is question of a small sliding-type hiatal hernia. The remainder of the stomach and duodenum are unremarkable. Lack of IV contrast limits assessment of the solid organs. The liver, gallbladder, bile ducts are unremarkable. An eggshell calcification in the hepatic hilum measures 9 mm in diameter and may represent a small visceral arterial aneurysm versus a chronically calcified lymph node. Other calcifications in the hepatic hilum probably represent calcified nodes. The pancreas is grossly unremarkable. The spleen is unremarkable, demonstrates an accessory splenule. The kidneys demonstrate multiple cysts bilaterally, as well as multiple subcentimeter low-attenuation lesions which are too small to characterize. There are prominent but not frankly enlarged retroperitoneal lymph nodes. No dahiana adenopathy. No pelvic mass or adenopathy. The bladder is equivocally minimally thick-walled, probably an artifact of under distention. There is minimal edema of the lumbar and pelvic wall subcutaneous fat. The included lung bases demonstrate some atelectatic changes, otherwise clear. The bones demonstrates minimal spondylosis changes. Impression: Limited assessment of the GI tract, due to lack of enteric contrast administration No definite acute process Colonic diverticulosis. No evidence of diverticulitis. Eggshell calcifications in the hepatic hilum. Most likely represent granulomatous nodes. 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 Multiple bilateral renal cysts. Multiple bilateral subcentimeter low-attenuation renal lesions, too small to characterize, most likely benign simple cysts. No further follow-up necessary Equivocal minimal bladder wall thickening, probably artifact of under distention, cystitis not completely excludable. Correlate with clinical and laboratory findings Minimal edema of the lumbar region and pelvic wall subcutaneous fat Other findings as noted, including equivocal tiny hiatal hernia, diastasis of the rectus abdominis tendon, minimal degenerative lumbar spondylosis, dependent pulmonary atelectatic changes The CT scanner at [facility] is accredited by the [employer] and the scans are performed using protocols designed to limit radiation exposure to as low as reasonably achievable to attain images of sufficient resolution adequate for diagnostic evaluation.
--- NOTE | 2018-09-04 16:44 | Diagnostic Imaging Report ---
Indication: Shortness of breath Technique: One view of the chest Comparison: 07/30/2018 Findings: The heart is upper limits normal in size. The aorta is tortuous ectatic and calcified. The lungs and pleural spaces are clear. There is no significant interim change Impression: No acute process
--- NOTE | 2018-09-04 16:47 | NUR ---
ED Nurse Note: PT AWARE TO OBTAIN URINE SAMPLE, URINAL GIVEN
[2018-09-04 17:07] LABS: CKMB 1.6 NG/ML (0.0-3.6); PHOSPHORUS 2.1 MG/DL (2.5-4.9); SODIUM 139 MMOL/L (136-145)
[2018-09-04] MEDS ORDERED: Acetaminophen 500mg (ES) tab ORAL ONE (17:15)
[2018-09-04 17:19] LABS: ANION GAP 13 mmol/L (5-15); BLOOD UREA NITROGEN 32 mg/dL (7-18); CALCIUM 8.3 MG/DL (8.5-10.1); CARBON DIOXIDE 25 MMOL/L (21-32); CHLORIDE 101 MMOL/L (98-107); CREATININE 3.1 MG/DL (0.55-1.30); POTASSIUM 3.8 MMOL/L (3.5-5.1)
[2018-09-04 17:24] LABS: ALANINE AMINOTRANSFERASE 21 U/L (12-78); ALBUMIN 2.7 G/DL (3.4-5.0); ALBUMIN/GLOBULIN RATIO 0.5 (1.0-2.7); ALKALINE PHOSPHATASE 113 U/L (46-116); ASPARTATE AMINO TRANSFERASE 33 U/L (15-37); BILIRUBIN,TOTAL 0.4 MG/DL (0.2-1.0); CREATINE KINASE 707 U/L (26-308)
[2018-09-04] MEDS ORDERED: HYDRALAZINE HCL50 MG ORAL (17:54)
[2018-09-04] MEDS ORDERED: LEVEMIR100 UNIT/1 SUBQ (18:00)
--- NOTE | 2018-09-04 18:25 | NUR ---
ED Nurse Note: URINE COLLECTED AND SENT TO LAB.
--- NOTE | 2018-09-04 18:44 | NUR ---
ED Nurse Note: TELE UNIT CALLED FOR PT REPORT. REPORT GIVEN TO BENOIT SULLIVAN. PT TAKEN UP TO TELE UNIT VIA GURNEY ON HAIR TINTER WITH ALL BELONGINGS ACCOMPANIED BY PRIMARY RN AND EMT.
[2018-09-04 18:47] LABS: BILIRUBIN, URINE NEGATIVE (NEGATIVE); COLOR,URINE PALE YELLOW; GLUCOSE, URINE (UA) 4+ (NEGATIVE); KETONES,URINE 1+ (NEGATIVE); LEUKOCYTE ESTERASE ,URINE 3+ (NEGATIVE); NITRITE,URINE POSITIVE (NEGATIVE); PH,URINE 5 (4.5-8.0); PROTEIN,URINE 3+ (NEGATIVE); UROBILINOGEN,URINE NORMAL MG/DL (0.0-1.0)
[2018-09-04 18:48] LABS: APPEARANCE,URINE SLIGHTLY CLOUDY
[2018-09-04 19:15] VITALS: BP 145/71
--- NOTE | 2018-09-04 19:19 | NUR ---
HAND-OFF: Report given to SILVIO LABOY. Addendum: 09/04/18 at 1920 by LAURIE HOYT RN PT IN STABLE CONDITION
[2018-09-04] MEDS ORDERED: Tamsulosin 0.4mg cap ORAL SCH ×2 (22:00→22:15)
[2018-09-04] MEDS: NovoLOG Insulin Flexpen SUBQ SCH (23:04)
--- NOTE | 2018-09-04 23:16 | Emergency Room Report ---
History of Present Illness General Chief Complaint: Fever Source: Patient, Medical Record Present Illness HPI Patient is an 80-year-old male sent in by nursing facility for increased generalized weakness and vomiting. Patient was noted to have become febrile. He was noted to have temperature up to 102 degrees. He was noted to have nonproductive cough as well as increased difficulty breathing. Allergies: Coded Allergies: No Known Allergies (Unverified , 05/27/15) Patient History Past Medical History: see triage record Reviewed Nursing Documentation: PMH: Agreed; PSxH: Agreed Nursing Documentation-PMH Past Medical History: No History, Except For Hx Cardiac Problems: Yes Hx Hypertension: Yes Hx Diabetes: Yes Hx Cancer: No Hx Gastrointestinal Problems: No Hx Dialysis: No - Chronic Kidney Disease, UTI Hx Neurological Problems: No Review of Systems All Other Systems: limited - by poor historian Physical Exam Vital Signs Date Time Temp Pulse Resp B/P (MAP) Pulse Ox O2 Delivery O2 Flow Rate FiO2 09/04/18 15:12 102.4 113 18 146/61 100 09/04/18 15:20 Room Air General Appearance: alert, Chronically Ill ENT: dry mucus membranes Neck: limited range of motion Respiratory: decreased breath sounds Cardiovascular #1: normal peripheral pulses, regular rate, rhythm Gastrointestinal: normal bowel sounds, soft, tenderness - suprapubic Musculoskeletal: decreased range of motion Neurologic: normal inspection, alert, responsive, source water protection specialist III-XII nml as tested, other - slow speech Psychiatric: normal inspection Skin: normal inspection, normal color Medical Decision Making Diagnostic Impression: Primary Impression: Fever Additional Impressions: SEPSIS BPH (benign prostatic hyperplasia) UTI (urinary tract infection) ER Course Patient is an 88-year-old male brought in by senior care after increased fever and generalized weakness. Differential diagnosis include was not limited to influenza, bowel obstruction, pneumonia, urinary tract infection among others. Because of complexity of patient's case laboratory testing and imaging studies were ordered. Patient was noted to have some episodes of fever in the emergency department. Blood cultures were obtained. CT of abdomen pelvis without contrast read by radiology showed bladder thickening and possible cystitis.Patient was started on IV fluids. Patient was given IV antibiotics Dr. Aliyah Degroot was contacted for inpatient management Labs Test 09/04/18 15:40 09/04/18 16:00 09/04/18 16:40 Urine Color Pale yellow Urine Appearance Slightly cloudy Urine pH 5 (4.5-8.0) Urine Specific Gustine 1.010 (1.005-1.035) Urine Protein 3+ (NEGATIVE) Urine Glucose (UA) 4+ (NEGATIVE) Urine Ketones 1+ (NEGATIVE) Urine Blood 5+ (NEGATIVE) Urine Nitrite Positive (NEGATIVE) Urine Bilirubin Negative (NEGATIVE) Urine Urobilinogen Normal MG/DL (0.0-1.0) Urine Leukocyte Esterase 3+ (NEGATIVE) Urine RBC 5-10 /HPF (0 - 0) Urine WBC 10-15 /HPF (0 - 0) Urine Squamous Epithelial Cells None /LPF (NONE/OCC) Urine Amorphous Sediment Moderate /LPF (NONE) Urine Bacteria Many /HPF (NONE) Arterial Blood pH 7.474 (7.350-7.450) Arterial Blood Partial Pressure CO2 33.5 mmHg (35.0-45.0) Arterial Blood Partial Pressure O2 70.7 mmHg (75.0-100.0) Arterial Blood HCO3 24.1 mmol/L (22.0-26.0) Arterial Blood Oxygen Saturation 94.8 % (95-100) Arterial Blood Base Excess 0.9 (-2-2) Dc Test Positive White Blood Count 17.0 K/UL (4.8-10.8) Red Blood Count 3.98 M/UL (4.70-6.10) Hemoglobin 11.7 G/DL (14.2-18.0) Hematocrit 35.0 % (42.0-52.0) Mean Corpuscular Volume 88 FL (80-99) Mean Corpuscular Hemoglobin 29.4 PG (27.0-31.0) Mean Corpuscular Hemoglobin Concent 33.5 G/DL (32.0-36.0) Red Cell Distribution Width 12.7 % (11.6-14.8) Platelet Count 148 K/UL (150-450) Mean Platelet Volume 8.6 FL (6.5-10.1) Neutrophils (%) (Auto) % (45.0-75.0) Lymphocytes (%) (Auto) % (20.0-45.0) Monocytes (%) (Auto) % (1.0-10.0) Eosinophils (%) (Auto) % (0.0-3.0) Basophils (%) (Auto) % (0.0-2.0) Differential Total Cells Counted 100 Neutrophils % (Manual) 85 % (45-75) Lymphocytes % (Manual) 5 % (20-45) Monocytes % (Manual) 8 % (1-10) Eosinophils % (Manual) 0 % (0-3) Basophils % (Manual) 0 % (0-2) Band Neutrophils 2 % (0-8) Platelet Estimate Decreased Platelet Morphology Normal Hypochromasia 1+ Anisocytosis 1+ Sodium Level 139 MMOL/L (136-145) Potassium Level 3.8 MMOL/L (3.5-5.1) Chloride Level 101 MMOL/L (98-107) Carbon Dioxide Level 25 MMOL/L (21-32) Anion Gap 13 mmol/L (5-15) Blood Urea Nitrogen 32 mg/dL (7-18) Creatinine 3.1 MG/DL (0.55-1.30) Estimat Glomerular Filtration Rate mL/min (>60) Glucose Level 424 MG/DL (74-106) Calcium Level 8.3 MG/DL (8.5-10.1) Phosphorus Level 2.1 MG/DL (2.5-4.9) Magnesium Level 2.0 MG/DL (1.8-2.4) Total Bilirubin 0.4 MG/DL (0.2-1.0) Aspartate Amino Transf (AST/SGOT) 33 U/L (15-37) Alanine Aminotransferase (ALT/SGPT) 21 U/L (12-78) Alkaline Phosphatase 113 U/L (46-116) Total Creatine Kinase 707 U/L (26-308) Creatine Kinase MB 1.6 NG/ML (0.0-3.6) Creatine Kinase MB Relative Index 0.2 Troponin I 0.041 ng/mL (0.000-0.056) Pro-B-Type Natriuretic Peptide 731 pg/mL (0-125) Total Protein 8.3 G/DL (6.4-8.2) Albumin 2.7 G/DL (3.4-5.0) Globulin 5.6 g/dL Albumin/Globulin Ratio 0.5 (1.0-2.7) Lipase 89 U/L (73-393) Lactic Acid Level 2.00 mmol/L (0.66-2.22) Last Vital Signs Date Time Temp Pulse Resp B/P (MAP) Pulse Ox O2 Delivery O2 Flow Rate FiO2 09/04/18 18:42 102.2 103 24 142/98 98 Room Air Status: unchanged Disposition: ADMITTED INPATIENT Condition: Serious Referrals: Aliyah Miller MD (PCP) Juan Luis Pina MD Sep 04, 2018 23:16
[2018-09-05] VITALS: BP 119/67
[2018-09-05 04:00] VITALS: BP 160/68
[2018-09-05] MEDS: Cefepime HCl 2 GM in NS 110 ML IV SCH (04:02)
[2018-09-05] MEDS: NovoLOG Insulin Flexpen SUBQ SCH ×4 (06:35→21:42)
[2018-09-05 07:06] LABS: BASOPHILS % (AUTO) 0.2 % (0.0-2.0); EOSINOPHILS % (AUTO) 0.3 % (0.0-3.0); HEMATOCRIT 30.5 % (42.0-52.0); HEMOGLOBIN 10.1 G/DL (14.2-18.0); LYMPHOCYTES % (AUTO) 6.6 % (20.0-45.0); MEAN CORPUSCULAR VOLUME 88 FL (80-99); MONOCYTES % (AUTO) 13.7 % (1.0-10.0); NEUTROPHILS % (AUTO) 79.2 % (45.0-75.0); PLATELET COUNT 149 K/UL (150-450); RED BLOOD COUNT 3.48 M/UL (4.70-6.10); RED CELL DISTRIBUTION WIDTH 12.9 % (11.6-14.8); WHITE BLOOD COUNT 13.9 K/UL (4.8-10.8)
--- NOTE | 2018-09-05 07:20 | NUR ---
HAND-OFF: Report given to BENOIT Ham.
--- NOTE | 2018-09-05 07:22 | NUR ---
NURSE NOTES: Report received from Max/ BENOIT. patient in stable condition, no distress/SOB noted. call light in reach, bed in low position. will continue plan of care.
[2018-09-05 07:57] LABS: ALANINE AMINOTRANSFERASE 24 U/L (12-78); ALBUMIN 2.2 G/DL (3.4-5.0); ALBUMIN/GLOBULIN RATIO 0.5 (1.0-2.7); ALKALINE PHOSPHATASE 85 U/L (46-116); ANION GAP 11 mmol/L (5-15); ASPARTATE AMINO TRANSFERASE 38 U/L (15-37); BILIRUBIN,TOTAL 0.4 MG/DL (0.2-1.0); BLOOD UREA NITROGEN 34 mg/dL (7-18); CALCIUM 7.9 MG/DL (8.5-10.1); CARBON DIOXIDE 25 MMOL/L (21-32); CHLORIDE 109 MMOL/L (98-107); CREATININE 2.8 MG/DL (0.55-1.30); POTASSIUM 3.2 MMOL/L (3.5-5.1); SODIUM 145 MMOL/L (136-145)
[2018-09-05 08:00] VITALS: BP 139/55
[2018-09-05] MEDS: Levemir Flexpen SUBQ SCH (09:52)
--- NOTE | 2018-09-05 11:37 | NUR ---
CASE MANAGEMENT:REVIEW 88 YR OLD MALE BIBA FROM [facility] CC: FEVER OF 102.4 ALSO N/V SI: SEPSIS 102.4 113 18 146/61 100% ON RA WBC+17.0 BUN+32 CR+3.1 IS: 1L NS BOLUS IV CEFEPIME IV FLAGYL URINE CX CT ABD/PELVIS CXR : TO TELEMETRY UNIT INTERQUAL CRITERIA MET
--- NOTE | 2018-09-05 11:50 | NUR ---
NURSE NOTES: Patient's blood culture is positive for Gram negative Rods. informed Dr. Mary Miranda.
[2018-09-05 12:00] VITALS: BP 142/64
--- NOTE | 2018-09-05 15:21 | Consultation ---
Consult Note Consult Note asked to eval for renal failure Patient is an 80-year-old male sent in by nursing facility for increased generalized weakness and vomiting. Patient was noted to have become febrile. He was noted to have temperature up to 102 degrees. He was noted to have nonproductive cough as well as increased difficulty breathing. No Known Allergies (Unverified , 05/27/15) Past Medical History: No History, Except For Hx Cardiac Problems: Yes Hx Hypertension: Yes Hx Diabetes: Yes Hx Dialysis: No - Chronic Kidney Disease, UTI examined data reviewed . Assessment/Plan Renal failure Acute on Chronic Anemia Low K Low Alb UTI / Sepsis DM / Proteinuria: Nephropathyy BPH flomax IV hydrate 2D echo SERGIO kidney Anemia mckeon per orders Antibiotics Rodrigue Mackenzie MD Sep 05, 2018 15:21
[2018-09-05 16:00] VITALS: BP 153/71
[2018-09-05] MEDS: Potassium Chloride 10 MEQ in 1/2 NS 1000ml 1,000 ML IV SCH (16:54)
--- NOTE | 2018-09-05 17:15 | Consultation ---
DATE OF CONSULTATION: 09/05/2018 ENDOCRINOLOGY CONSULTATION CONSULTING PHYSICIAN: Pj Stuart M.D. REFERRING PHYSICIAN: Aliyah Miller M.D. REASON FOR CONSULTATION: Diabetes management. HISTORY OF PRESENT ILLNESS: The patient is an 88-year-old male diagnosed with CHF presented with history of vomiting. The patient has a temperature of 102. The glucose is elevated. Endocrinology was consulted in order to assist in management of diabetes. PAST MEDICAL HISTORY: 1. Diabetes. 2. Coronary artery disease. 3. Hypertension. 4. History of chronic kidney disease. 5. Urinary tract infection. REVIEW OF SYSTEMS: Limited. The patient is a poor historian. ALLERGIES TO MEDICATIONS: None. MEDICATIONS: Reviewed and reconciled. FAMILY HISTORY: Noncontributory. SOCIAL HISTORY: The patient is a resident of a assisted facility. No active smoking, alcohol, or drug use. PHYSICAL EXAMINATION: VITAL SIGNS: Blood pressure is 160/68, pulse of 95, temperature of 99, and respiratory rate of 18. HEENT: Pupils are equal and reactive to light. Sclerae anicteric. NECK: No JVD. HEART: Regular. LUNGS: Clear. ABDOMEN: Positive bowel sounds. EXTREMITIES: Positive for edema. LABORATORY VALUES: Sodium 139, potassium 3.8, chloride 101, bicarb 25, BUN 33, creatinine 3.1, glucose 434. Lactic acid 210. Lipase 89. WBC 17, hemoglobin of 11.7, hematocrit 35, platelets of 128. DIAGNOSES: 1. Sepsis. 2. Chronic kidney disease. 3. Acute kidney injury. 4. Diabetes, out of control. PLAN: 1. Start Novolog 10 units before each meal. 2. NovoLog sliding scale a.c. and at bedtime. 3. Add Levemir 10 units before each meal. 4. Further adjustment according to blood glucose values. Thank you, Dr. Miller, for the courtesy of this consultation. Pj Stuart M.D. DR: Mona JOB#: [id number] CC: BENY
--- NOTE | 2018-09-05 17:30 | Consultation ---
DATE OF CONSULTATION: 09/05/2018 INFECTIOUS DISEASE CONSULTATION CONSULTING PHYSICIAN: Viktor Miranda M.D. PRIMARY ATTENDING PHYSICIAN: Aliyah Miller M.D. REASON FOR CONSULT: Gram-negative sepsis, UTI. HISTORY OF PRESENT ILLNESS: This is an 88-year-old male admitted yesterday from a senior care facility. The patient did not feel good, had vomiting, had a fever of 102.4. He has nonproductive cough. The patient has history of BPH and previous admission with UTI. He was found to have lactic acidosis, leukocytosis and worsening of renal failure. PAST MEDICAL HISTORY: Significant for diabetes, hypertension, chronic kidney disease, BPH, depression, and anemia. He had history of mastoiditis and otitis. ALLERGIES: No known drug allergies. MEDICATIONS: Cefepime, amlodipine, Proscar, Starlix, insulin, clonidine, and Flomax. Got the dose of cefepime in the ER, got one dose of Flagyl in the ER. SOCIAL HISTORY: No history of alcohol, drug abuse, or smoking. prison resident, has a son. REVIEW OF SYSTEMS: He did not feel very good. No vomiting today. He had difficulty of passing urine that improved after they put a catheter in the ER. PHYSICAL EXAMINATION: VITAL SIGNS: Temperature 98.9, T-max is 102.4, pulse 94, and blood pressure 139/55. GENERAL: In no acute distress, well developed. HEAD AND NECK: Stockett conjunctivae. HEART: S1-S2, regular. LUNGS: Clear. ABDOMEN: Soft and nontender. GENITOURINARY: He has Hitchcock catheter. EXTREMITIES: He has no edema. NEUROLOGIC: Awake and alert, responsive, seems oriented. LABORATORY AND DIAGNOSTIC DATA: Sodium 142, potassium 3.2, chloride 109, bicarbonate 25, BUN 34, and creatinine 2.8. Glucose 109. LFTs within normal limits. CK is 707. WBC today is 13.9 coming down from 17, hemoglobin 10.1, hematocrit 30.5, and platelets 149. Blood culture growing gram-negative rods. Influenza A and B are negative. Urine culture is pending. The patient had a CT scan of the abdomen and pelvis that showed diverticulosis , some calcification in liver. Chest x-ray showed no acute process. IMPRESSION: 1. Gram-negative sepsis. 2. Urinary tract infection. 3. Acute renal failure. 4. Chronic kidney disease. 5. Diabetes mellitus. 6. Hypertension. 7. Benign prostatic hypertrophy. 8. Anemia. RECOMMENDATION: We will continue with cefepime. We will ask for urologic evaluation. Case was discussed with the primary doctor. At the end of my exam, I thank Dr. Miller for involving me in the care of this patient. Viktor Miranda M.D. DR: BROOKLYN JOB#: [id number] CC: BENY
--- NOTE | 2018-09-05 18:15 | History and Physical Report ---
DATE OF ADMISSION: 09/04/2018 HISTORY OF PRESENT ILLNESS: The patient is admitted to telemetry. He is a poor historian. Does have dementia, admitted for elevated sugar, acute renal failure as well as sepsis, fever, leukocytosis, acute renal failure, urinary tract infection, generalized weakness, and sepsis. Again, the patient is a poor historian, cannot get reliable history from the patient. The patient does have the dementia, however, denies pain. Denies shortness of breath. Denies cough. Denies fever or chills. No shortness of breath. PAST MEDICAL HISTORY: Dementia/organic brain syndrome, hypertension, atonic bladder, BPH, hypertension, NIDDM, depression, GERD. PAST SURGICAL HISTORY: Denies. ALLERGIES: No known allergies. MEDICATIONS: Norvasc, bethanechol, finasteride, hydralazine, Levemir, mirtazapine, Starlix, omeprazole, and Flomax. ALLERGIES: No known allergies. FAMILY HISTORY: Does have history of diabetes and hypertension. SOCIAL HISTORY: No history of smoking, alcohol, or illicit drugs. Lives in assisted living. REVIEW OF SYSTEMS: HEENT: Denies headaches. RESPIRATORY: Denies shortness of breath. Denies cough. CARDIOVASCULAR: Denies chest pain. Denies nausea, vomiting, or diarrhea. EXTREMITY: Denies pain. CENTRAL NERVOUS SYSTEM: No change in vision or speech pattern; however is a relatively poor historian as stated. PHYSICAL EXAMINATION: VITAL SIGNS: Temperature 98.1, pulse is 89, blood pressure 119/67. HEENT: PERRLA. NECK: Supple. No lymphadenopathy. CHEST: Clear to auscultation CARDIOVASCULAR: Regular rate and rhythm. No murmurs or extra sounds. Sounds. GASTROINTESTINAL: Soft, nontender, and nondistended. No organomegaly. EXTREMITIES: No edema. Reflexes on both sides. Has generalized weakness. Oriented to name only, which is his baseline. LABORATORY DATA: WBC of 17, hemoglobin 11.7, and platelets of 148. Sodium 139, potassium 3.8, BUN of 32, creatinine 3.1, glucose 424. ASSESSMENT/PLAN: 1. Sepsis. 2. Acute renal failure. 3. History of BPH and atonic bladder . 4. Urinary tract infection. 5. Elevated blood sugar. 6. . I have asked Dr. Mackenzie, Dr. NaDr. Viktor jena, Dr. Roman to see the patient for the management of the labile diabetes as well as for sepsis and urinary tract infection as well as for management of atonic urinary bladder as well as for the management of acute renal failure, most likely due to BPH as well as possibly due to dehydration. Aliyah Miller M.D. DR: Miriam JOB#: [id number] CC:
[2018-09-05] MEDS: Tamsulosin 0.4mg cap ORAL SCH (18:18)
--- NOTE | 2018-09-05 19:25 | NUR ---
HAND-OFF: Report given to BENOIT Santana. Patient is in stable condition. Endorsed plan of care.
[2018-09-05 20:00] VITALS: BP 162/73
--- NOTE | 2018-09-05 20:27 | NUR ---
NURSE NOTES: Received pt from BENOIT Ham. Pt resting and stable. Will continue with plan of care.
[2018-09-06] VITALS: BP 139/62
[2018-09-06 04:00] VITALS: BP 150/66
[2018-09-06] MEDS ORDERED: Cefepime HCl 1 GM in D5W 55 ML IVPB SCH (05:00)
[2018-09-06] MEDS: Potassium Chloride 10 MEQ in 1/2 NS 1000ml 1,000 ML IV SCH ×2 (05:21→18:17)
[2018-09-06] MEDS: NovoLOG Insulin Flexpen SUBQ SCH ×4 (06:34→20:33)
[2018-09-06 06:35] LABS: BASOPHILS % (AUTO) 0.6 % (0.0-2.0); EOSINOPHILS % (AUTO) 1.2 % (0.0-3.0); HEMATOCRIT 29.3 % (42.0-52.0); HEMOGLOBIN 9.5 G/DL (14.2-18.0); LYMPHOCYTES % (AUTO) 7.2 % (20.0-45.0); MEAN CORPUSCULAR VOLUME 89 FL (80-99); MONOCYTES % (AUTO) 13.4 % (1.0-10.0); NEUTROPHILS % (AUTO) 77.6 % (45.0-75.0); PLATELET COUNT 171 K/UL (150-450); RED CELL DISTRIBUTION WIDTH 13.4 % (11.6-14.8)
--- NOTE | 2018-09-06 07:24 | NUR ---
HAND-OFF: Report given to BENOIT Ham.
--- NOTE | 2018-09-06 07:25 | NUR ---
NURSE NOTES: Report received from Max/ BENOIT. Patient is in stable condition resting. No distress/SOB noted. Call light in reach, bed in low position. Will continue plan of care.
[2018-09-06 07:28] LABS: ALANINE AMINOTRANSFERASE 33 U/L (12-78); ALBUMIN/GLOBULIN RATIO 0.4 (1.0-2.7); ALKALINE PHOSPHATASE 88 U/L (46-116); ANION GAP 11 mmol/L (5-15); ASPARTATE AMINO TRANSFERASE 36 U/L (15-37); BILIRUBIN,TOTAL 0.9 MG/DL (0.2-1.0); BLOOD UREA NITROGEN 37 mg/dL (7-18); CALCIUM 8.2 MG/DL (8.5-10.1); CARBON DIOXIDE 24 MMOL/L (21-32); CHLORIDE 108 MMOL/L (98-107); CHOLESTEROL 130 MG/DL (< 200); CREATINE KINASE 503 U/L (26-308); CREATININE 2.6 MG/DL (0.55-1.30); FERRITIN 493 NG/ML (8-388); GAMMA GLUTAMYL TRANSPEPTIDASE 16 U/L (5-85); HDL CHOLESTEROL 10 MG/DL (40-60); PHOSPHORUS 2.4 MG/DL (2.5-4.9); POTASSIUM 3.4 MMOL/L (3.5-5.1); SODIUM 143 MMOL/L (136-145); TRIGLYCERIDES 147 MG/DL (30-150)
[2018-09-06 08:00] VITALS: BP 147/74
[2018-09-06] MEDS: Tamsulosin 0.4mg cap ORAL SCH ×2 (08:27→17:54)
[2018-09-06] MEDS: Levemir Flexpen SUBQ SCH ×2 (08:29→17:55)
--- NOTE | 2018-09-06 08:49 | General Progress Note ---
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 SNOMED: 74927081, 771301714 (2) Diabetes ICD Codes: E11.9 - Type 2 diabetes mellitus without complications SNOMED: 50396416 (3) Anemia ICD Codes: D64.9 - Anemia, unspecified SNOMED: 642363773 (4) Generalized weakness ICD Codes: R53.1 - Weakness SNOMED: 02491284 (5) Hypertension ICD Codes: I10 - Essential (primary) hypertension SNOMED: 63259685 Assessment/Plan increase Levemir 10 units to bid continue Starlix 120 mg ac tid continue NISS ac / hs Subjective Allergies: Coded Allergies: No Known Allergies (Unverified , 05/27/15) All Systems: reviewed and negative except above Subjective events noted glucose still on higher side Item Value Date Time Bedside Blood Glucose 256 mg/dl H 09/06/18 0829 Bedside Blood Glucose 226 mg/dl H 09/06/18 0634 Bedside Blood Glucose 249 mg/dl H 09/05/18 2142 Bedside Blood Glucose 205 mg/dl H 09/05/18 1637 Bedside Blood Glucose 175 mg/dl H 09/05/18 1138 Bedside Blood Glucose 163 mg/dl H 09/05/18 0952 Bedside Blood Glucose 123 mg/dl H 09/05/18 0635 Objective Last 24 Hour Vital Signs Date Time Temp Pulse Resp B/P (MAP) Pulse Ox O2 Delivery O2 Flow Rate FiO2 09/06/18 08:27 90 147/74 09/06/18 08:00 98.0 90 20 147/74 (98) 95 09/06/18 04:00 96 09/06/18 04:00 97.8 96 20 150/66 (94) 94 09/06/18 00:00 85 09/06/18 00:00 96.9 85 18 139/62 (87) 98 09/05/18 21:00 Room Air 09/05/18 20:00 97.5 96 18 162/73 (102) 96 09/05/18 20:00 96 09/05/18 16:00 99.6 94 18 153/71 (98) 96 09/05/18 16:00 100 09/05/18 12:00 99.0 89 18 142/64 (90) 96 09/05/18 12:00 91 09/05/18 09:32 94 139/55 09/05/18 09:00 Room Air Intake and Output 09/05/18 09/06/18 18:59 06:59 Intake Total 510 ml 682.5 ml Balance 510 ml 682.5 ml Intake Oral 360 ml IV Total 150 ml 682.5 ml # Voids 3 1 Laboratory Tests 09/06/18 04:45: White Blood Count 15.0H, Red Blood Count 3.30L, Hemoglobin 9.5L, Hematocrit 29.3L, Mean Corpuscular Volume 89, Mean Corpuscular Hemoglobin 28.7, Mean Corpuscular Hemoglobin Concent 32.3, Red Cell Distribution Width 13.4, Platelet Count 171, Mean Platelet Volume 8.3, Neutrophils (%) (Auto) 77.6H, Lymphocytes ( %) (Auto) 7.2L, Monocytes (%) (Auto) 13.4H, Eosinophils (%) (Auto) 1.2, Basophils (%) (Auto) 0.6, Sodium Level 143, Potassium Level 3.4L, Chloride Level 108H, Carbon Dioxide Level 24, Anion Gap 11, Blood Urea Nitrogen 37H, Creatinine 2.6H, Estimat Glomerular Filtration Rate , Glucose Level 212#H, Hemoglobin A1c 10.7H, Insulin Level [Pending], Uric Acid 5.6, Calcium Level 8.2L , Phosphorus Level 2.4L, Magnesium Level 2.0, Iron Level [Pending], Unsaturated Iron Binding [Pending], Ferritin 493H, Total Bilirubin 0.9, Gamma Glutamyl Transpeptidase 16, Aspartate Amino Transf (AST/SGOT) 36, Alanine Aminotransferase (ALT/SGPT) 33, Alkaline Phosphatase 88, Total Creatine Kinase 503H, Troponin I 0.024, Pro-B-Type Natriuretic Peptide 929H, Total Protein 6.8, Albumin 2.0L, Globulin 4.8, Albumin/Globulin Ratio 0.4L, Triglycerides Level 147 , Cholesterol Level 130, LDL Cholesterol 51, HDL Cholesterol 10L, Cholesterol/ HDL Ratio 13.0H, Vitamin B12 Level [Pending], Folate [Pending], Thyroid Stimulating Hormone (TSH) 0.967 Height (Feet): 5 Height (Inches): 11.00 Weight (Pounds): 197 General Appearance: no apparent distress Neck: normal alignment Cardiovascular: normal rate Respiratory/Chest: lungs clear Abdomen: normal bowel sounds Pelvis: normal external exam Objective Current Medications Medications (Trade) Dose Ordered Sig/Mayank Route PRN Reason Start Time Stop Time Status Last Admin Dose Admin Amlodipine Besylate (Norvasc) 10 mg DAILY ORAL 09/05/18 09:00 10/05/18 08:59 09/06/18 08:27 Cefepime HCl 1 gm/ Dextrose 55 ml @ 110 mls/hr Q24H IVPB 09/06/18 05:00 09/13/18 04:59 09/06/18 05:12 Clonidine HCl (Catapres Tab) 0.1 mg Q4H PRN ORAL For High Blood Pressure 09/05/18 15:30 10/05/18 15:29 Dextrose (Dextrose 50%) 25 ml Q30M PRN IV Hypoglycemia 09/05/18 06:45 10/05/18 06:44 Dextrose (Dextrose 50%) 50 ml Q30M PRN IV Hypoglycemia 09/05/18 06:45 10/05/18 06:44 Finasteride (Proscar) 5 mg DAILY ORAL 09/05/18 09:00 10/05/18 08:59 09/06/18 08:26 Insulin Aspart (NovoLOG) BEFORE MEALS AND HS SUBQ 09/04/18 22:00 10/04/18 21:59 09/06/18 06:34 Insulin Detemir (Levemir) 10 units DAILY SUBQ 09/05/18 09:00 10/05/18 08:59 09/06/18 08:29 Nateglinide (Starlix) 120 mg THREE TIMES A DAY ORAL 09/05/18 09:00 10/05/18 08:59 09/06/18 08:26 Pantoprazole (Protonix) 40 mg EVERY 12 HOURS ORAL 09/05/18 21:00 10/05/18 20:59 09/06/18 08:26 Potassium Chloride 10 meq/ Sodium Chloride 1,005 ml @ 75 mls/hr [id number] IV 09/05/18 16:00 10/05/18 15:59 09/06/18 05:21 Potassium Phosphate 20 mm/ Sodium Chloride 281.6667 ml @ 46.944 m... ONCE ONCE IVPB 09/06/18 08:45 09/06/18 14:44 UNV Tamsulosin HCl (Flomax) 0.4 mg BID ORAL 09/05/18 18:00 10/04/18 21:59 09/06/18 08:27 Pj Stuart MD Sep 06, 2018 08:49
[2018-09-06 09:04] LABS: % IRON SATURATION 42 % (15-50); IRON 60 ug/dL (50-175); TOTAL IRON BINDING CAPACITY 143 ug/dL (250-450)
[2018-09-06] MEDS ORDERED: Potassium Phosphate 20 MM in NS 275 ML IV ONE (11:00)
[2018-09-06 12:00] VITALS: BP 134/72
--- NOTE | 2018-09-06 13:46 | NUR ---
DISCHARGE PLANNING SPOKE WITH DR GARZA ~ PLAN IS TO DISCHARGE HOME ON SUNDAY AND RESUME HOME HOSPICE Addendum: 09/09/18 at 1024 by MARY LOU LAWRENCE LVN LVN ABOVE ENTRY ERROR
--- NOTE | 2018-09-06 15:47 | Diagnostic Imaging Report ---
Indication:Elevated Bun and Creatinine. Technique: Grayscale and duplex Doppler imaging of the kidneys performed. Comparison: None Findings: The size, contour, and echogenicity of both kidneys are within normal limits. Right kidney is 12.3 cm left kidney 11.4 cm. There are multiple bilateral small renal cysts. There is no hydronephrosis. The IVC and urinary bladder are unremarkable. IMPRESSION: No obstructive nephropathy. Bilateral renal cysts
[2018-09-06 16:00] VITALS: BP 133/77
--- NOTE | 2018-09-06 16:50 | Nephrology Progress Note ---
Assessment/Plan Problem List: (1) Acute on chronic renal failure (2) Diabetic nephropathy (3) Anemia (4) BPH (benign prostatic hyperplasia) (5) UTI (urinary tract infection) Assessment Renal failure Acute on Chronic Anemia Low K Low Alb UTI / Sepsis DM / Proteinuria: Nephropathyy BPH Plan flomax IV hydrate 2D echo SERGIO kidney Anemia mckeon per orders Antibiotics Subjective ROS Limited/Unobtainable: No Constitutional: Reports: malaise Objective Objective Last 24 Hour Vital Signs Date Time Temp Pulse Resp B/P (MAP) Pulse Ox O2 Delivery O2 Flow Rate FiO2 09/06/18 16:00 96.6 106 20 133/77 (95) 97 09/06/18 12:00 95 09/06/18 12:00 98.2 96 20 134/72 (92) 96 09/06/18 09:00 Room Air 09/06/18 08:27 90 147/74 09/06/18 08:00 103 09/06/18 08:00 98.0 90 20 147/74 (98) 95 09/06/18 04:00 96 09/06/18 04:00 97.8 96 20 150/66 (94) 94 09/06/18 00:00 85 09/06/18 00:00 96.9 85 18 139/62 (87) 98 09/05/18 21:00 Room Air 09/05/18 20:00 97.5 96 18 162/73 (102) 96 09/05/18 20:00 96 Intake and Output 09/05/18 09/06/18 19:00 07:00 Intake Total 517.5 ml 675 ml Balance 517.5 ml 675 ml Intake Oral 360 ml IV Total 157.5 ml 675 ml # Voids 3 1 Laboratory Tests 09/06/18 04:45: White Blood Count 15.0H, Red Blood Count 3.30L, Hemoglobin 9.5L, Hematocrit 29.3L, Mean Corpuscular Volume 89, Mean Corpuscular Hemoglobin 28.7, Mean Corpuscular Hemoglobin Concent 32.3, Red Cell Distribution Width 13.4, Platelet Count 171, Mean Platelet Volume 8.3, Neutrophils (%) (Auto) 77.6H, Lymphocytes ( %) (Auto) 7.2L, Monocytes (%) (Auto) 13.4H, Eosinophils (%) (Auto) 1.2, Basophils (%) (Auto) 0.6, Sodium Level 143, Potassium Level 3.4L, Chloride Level 108H, Carbon Dioxide Level 24, Anion Gap 11, Blood Urea Nitrogen 37H, Creatinine 2.6H, Estimat Glomerular Filtration Rate , Glucose Level 212#H, Hemoglobin A1c 10.7H, Insulin Level [Pending], Uric Acid 5.6, Calcium Level 8.2L , Phosphorus Level 2.4L, Magnesium Level 2.0, Iron Level 60, Total Iron Binding Capacity 143L, Percent Iron Saturation 42, Unsaturated Iron Binding 83L, Ferritin 493H, Total Bilirubin 0.9, Gamma Glutamyl Transpeptidase 16, Aspartate Amino Transf (AST/SGOT) 36, Alanine Aminotransferase (ALT/SGPT) 33, Alkaline Phosphatase 88, Total Creatine Kinase 503H, Troponin I 0.024, Pro-B-Type Natriuretic Peptide 929H, Total Protein 6.8, Albumin 2.0L, Globulin 4.8, Albumin /Globulin Ratio 0.4L, Triglycerides Level 147, Cholesterol Level 130, LDL Cholesterol 51, HDL Cholesterol 10L, Cholesterol/HDL Ratio 13.0H, Vitamin B12 Level 481, Folate 15.5, Thyroid Stimulating Hormone (TSH) 0.967 09/06/18 13:45: Urine Eosinophils None seen, Urine Random Sodium [Pending] Height (Feet): 5 Height (Inches): 11.00 Weight (Pounds): 197 General Appearance: no apparent distress Objective no change Rodrigue Mackenzie MD Sep 06, 2018 16:50
--- NOTE | 2018-09-06 19:14 | General Progress Note ---
Assessment/Plan Problem List: (1) BPH (benign prostatic hyperplasia) ICD Codes: N40.0 - Benign prostatic hyperplasia without lower urinary tract symptoms SNOMED: 344637834 (2) Anemia ICD Codes: D64.9 - Anemia, unspecified SNOMED: 571545846 (3) Fever ICD Codes: R50.9 - Fever, unspecified SNOMED: 521098522 (4) Sepsis ICD Codes: A41.9 - Sepsis, unspecified organism SNOMED: 41857987 (5) Diabetes ICD Codes: E11.9 - Type 2 diabetes mellitus without complications SNOMED: 85080210 (6) Generalized weakness ICD Codes: R53.1 - Weakness SNOMED: 74081854 (7) UTI (urinary tract infection) ICD Codes: N39.0 - Urinary tract infection, site not specified SNOMED: 09948438 (8) Hypertension ICD Codes: I10 - Essential (primary) hypertension SNOMED: 49263540 Status: progressing Assessment/Plan afebrile sepsis and uti improving abx per id reviewed chart and labs Subjective ROS Limited/Unobtainable: Yes Constitutional: Reports: no symptoms Allergies: Coded Allergies: No Known Allergies (Unverified , 05/27/15) Objective Last 24 Hour Vital Signs Date Time Temp Pulse Resp B/P (MAP) Pulse Ox O2 Delivery O2 Flow Rate FiO2 09/06/18 16:00 100 09/06/18 16:00 96.6 106 20 133/77 (95) 97 09/06/18 12:00 95 09/06/18 12:00 98.2 96 20 134/72 (92) 96 09/06/18 09:00 Room Air 09/06/18 08:27 90 147/74 09/06/18 08:00 103 09/06/18 08:00 98.0 90 20 147/74 (98) 95 09/06/18 04:00 96 09/06/18 04:00 97.8 96 20 150/66 (94) 94 09/06/18 00:00 85 09/06/18 00:00 96.9 85 18 139/62 (87) 98 09/05/18 21:00 Room Air 09/05/18 20:00 97.5 96 18 162/73 (102) 96 09/05/18 20:00 96 Intake and Output 09/05/18 09/06/18 18:59 06:59 Intake Total 510 ml 682.5 ml Balance 510 ml 682.5 ml Intake Oral 360 ml IV Total 150 ml 682.5 ml # Voids 3 1 Laboratory Tests 09/06/18 04:45: White Blood Count 15.0H, Red Blood Count 3.30L, Hemoglobin 9.5L, Hematocrit 29.3L, Mean Corpuscular Volume 89, Mean Corpuscular Hemoglobin 28.7, Mean Corpuscular Hemoglobin Concent 32.3, Red Cell Distribution Width 13.4, Platelet Count 171, Mean Platelet Volume 8.3, Neutrophils (%) (Auto) 77.6H, Lymphocytes ( %) (Auto) 7.2L, Monocytes (%) (Auto) 13.4H, Eosinophils (%) (Auto) 1.2, Basophils (%) (Auto) 0.6, Sodium Level 143, Potassium Level 3.4L, Chloride Level 108H, Carbon Dioxide Level 24, Anion Gap 11, Blood Urea Nitrogen 37H, Creatinine 2.6H, Estimat Glomerular Filtration Rate , Glucose Level 212#H, Hemoglobin A1c 10.7H, Insulin Level [Pending], Uric Acid 5.6, Calcium Level 8.2L , Phosphorus Level 2.4L, Magnesium Level 2.0, Iron Level 60, Total Iron Binding Capacity 143L, Percent Iron Saturation 42, Unsaturated Iron Binding 83L, Ferritin 493H, Total Bilirubin 0.9, Gamma Glutamyl Transpeptidase 16, Aspartate Amino Transf (AST/SGOT) 36, Alanine Aminotransferase (ALT/SGPT) 33, Alkaline Phosphatase 88, Total Creatine Kinase 503H, Troponin I 0.024, Pro-B-Type Natriuretic Peptide 929H, Total Protein 6.8, Albumin 2.0L, Globulin 4.8, Albumin /Globulin Ratio 0.4L, Triglycerides Level 147, Cholesterol Level 130, LDL Cholesterol 51, HDL Cholesterol 10L, Cholesterol/HDL Ratio 13.0H, Vitamin B12 Level 481, Folate 15.5, Thyroid Stimulating Hormone (TSH) 0.967 09/06/18 13:45: Urine Eosinophils None seen, Urine Random Sodium [Pending] Height (Feet): 5 Height (Inches): 11.00 Weight (Pounds): 197 Neck: supple Cardiovascular: normal rate Respiratory/Chest: lungs clear Abdomen: soft Aliyah Miller MD Sep 06, 2018 19:14
[2018-09-06 20:00] VITALS: BP 146/76
[2018-09-06] MEDS ORDERED: Tubing IV Secondary IV ONE (20:35)
--- NOTE | 2018-09-06 23:23 | NUR ---
HAND-OFF: Report given to BENOIT Jones. Patient is in stable condition. Endorsed plan of care.
--- NOTE | 2018-09-06 23:35 | NUR ---
NURSE NOTES: ASSUMED CARE OF PATIENT AT THIS TIME. PATIENT ASLEEP, EASILY AROUSABLE. FALL PRECAUTIONS IN PLACE: CALL LIGHT, BEDSID TABLE WITHIN REACH, BED IN LOW POSITION AND BED ALARM ON. WILL CONTINUE WITH PLAN OF CARE. Addendum: 09/06/18 at 2337 by MINE BROWN RN BED SIDE
[2018-09-07] VITALS: BP 156/77
--- NOTE | 2018-09-07 00:37 | NUR ---
NURSE NOTES: INCONTINENCE CARE GIVEN, LINEN CHANGED, PATIENT TURNED AND REPOSITIONED. BLE ELEVATED ON PILLOW WITH HEELS FLOATING. ALL NEEDS ATTENDED.
--- NOTE | 2018-09-07 03:00 | NUR ---
NURSE NOTES: RECEIVED CALL FROM [facility]--BC POSITIVE FOR ESBL. CALLED AND NOTIFIED DR. Mary MICHAEL. NEW ORDER PLACED.
[2018-09-07] MEDS: Meropenem 500 MG in NS 55 ML IVPB SCH ×3 (03:28→20:46)
[2018-09-07 04:00] VITALS: BP 166/65
[2018-09-07] MEDS: NovoLOG Insulin Flexpen SUBQ SCH ×6 (06:11→20:43)
--- NOTE | 2018-09-07 07:27 | NUR ---
HAND-OFF: Report given to Mary URBINA RN. PATIENT EATING BREAKFAST, NO SIGNS OF DISTRESS NOTED.
--- NOTE | 2018-09-07 07:27 | General Progress Note ---
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 SNOMED: 76336882, 241178551 (2) Diabetes ICD Codes: E11.9 - Type 2 diabetes mellitus without complications SNOMED: 47817201 (3) Anemia ICD Codes: D64.9 - Anemia, unspecified SNOMED: 065504605 (4) Generalized weakness ICD Codes: R53.1 - Weakness SNOMED: 16470851 (5) Hypertension ICD Codes: I10 - Essential (primary) hypertension SNOMED: 74941135 Assessment/Plan continue Levemir 10 units bid continue Starlix 120 mg ac tid add Novolog 8 units ac tid continue NISS ac / hs Subjective Allergies: Coded Allergies: No Known Allergies (Unverified , 05/27/15) All Systems: reviewed and negative except above Subjective events noted Item Value Date Time Bedside Blood Glucose 185 mg/dl H 09/07/18 0611 Bedside Blood Glucose 332 mg/dl H 09/06/18 2100 Bedside Blood Glucose 306 mg/dl H 09/06/18 1755 Bedside Blood Glucose 324 mg/dl H 09/06/18 1150 Bedside Blood Glucose 256 mg/dl H 09/06/18 0829 Objective Last 24 Hour Vital Signs Date Time Temp Pulse Resp B/P (MAP) Pulse Ox O2 Delivery O2 Flow Rate FiO2 09/07/18 04:00 101 09/07/18 04:00 98.9 102 20 166/65 (98) 94 09/07/18 00:00 97.9 101 20 156/77 (103) 95 09/07/18 00:00 96 09/06/18 21:00 Room Air 09/06/18 20:00 109 09/06/18 20:00 99.5 101 20 146/76 (99) 95 09/06/18 16:00 100 09/06/18 16:00 96.6 106 20 133/77 (95) 97 09/06/18 12:00 95 09/06/18 12:00 98.2 96 20 134/72 (92) 96 09/06/18 09:00 Room Air 09/06/18 08:27 90 147/74 09/06/18 08:00 103 09/06/18 08:00 98.0 90 20 147/74 (98) 95 Intake and Output 09/06/18 09/07/18 19:00 07:00 Intake Total 1703.888 ml 975 ml Output Total 300 ml 1000 ml Balance 1403.888 ml -25 ml Intake Oral 640 ml IV Total 1063.888 ml 975 ml Output Urine Total 300 ml 1000 ml # Voids 1 Laboratory Tests 09/06/18 13:45: Urine Eosinophils None seen, Urine Random Sodium [Pending] 09/07/18 01:00: Urine Eosinophils None seen Height (Feet): 5 Height (Inches): 11.00 Weight (Pounds): 197 General Appearance: no apparent distress Neck: normal alignment Cardiovascular: normal rate Respiratory/Chest: lungs clear Abdomen: normal bowel sounds Pelvis: normal external exam Objective Current Medications Medications (Trade) Dose Ordered Sig/Mayank Route PRN Reason Start Time Stop Time Status Last Admin Dose Admin Amlodipine Besylate (Norvasc) 10 mg DAILY ORAL 09/05/18 09:00 10/05/18 08:59 09/06/18 08:27 Clonidine HCl (Catapres Tab) 0.1 mg Q4H PRN ORAL For High Blood Pressure 09/05/18 15:30 10/05/18 15:29 Dextrose (Dextrose 50%) 25 ml Q30M PRN IV Hypoglycemia 09/05/18 06:45 10/05/18 06:44 Dextrose (Dextrose 50%) 50 ml Q30M PRN IV Hypoglycemia 09/05/18 06:45 10/05/18 06:44 Finasteride (Proscar) 5 mg DAILY ORAL 09/05/18 09:00 10/05/18 08:59 09/06/18 08:26 Insulin Aspart (NovoLOG) BEFORE MEALS AND HS SUBQ 09/04/18 22:00 10/04/18 21:59 09/07/18 06:11 Insulin Detemir (Levemir) 10 units BID SUBQ 09/06/18 18:00 10/06/18 17:59 09/06/18 17:55 Meropenem 500 mg/ Sodium Chloride 55 ml @ 110 mls/hr EVERY 12 HOURS IVPB 09/07/18 03:00 09/12/18 02:59 09/07/18 03:28 Nateglinide (Starlix) 120 mg THREE TIMES A DAY ORAL 09/05/18 09:00 10/05/18 08:59 09/06/18 17:54 Pantoprazole (Protonix) 40 mg EVERY 12 HOURS ORAL 09/05/18 21:00 10/05/18 20:59 09/06/18 20:33 Potassium Chloride 10 meq/ Sodium Chloride 1,005 ml @ 75 mls/hr [id number] IV 09/05/18 16:00 10/05/18 15:59 09/06/18 18:17 Tamsulosin HCl (Flomax) 0.4 mg BID ORAL 09/05/18 18:00 10/04/18 21:59 09/06/18 17:54 Pj Stuart MD Sep 07, 2018 07:27
[2018-09-07 08:00] VITALS: BP 157/62
--- NOTE | 2018-09-07 08:20 | NUR ---
NURSE NOTES: I received the patient resting in bed. Patient awake and eating breakfast. Patient repositioned in bed. Bed in the lowest position and call light within reach.
[2018-09-07] MEDS: Potassium Chloride 10 MEQ in 1/2 NS 1000ml 1,000 ML IV SCH ×2 (09:08→20:47)
[2018-09-07] MEDS: Tamsulosin 0.4mg cap ORAL SCH ×2 (09:08→18:30)
[2018-09-07] MEDS: Levemir Flexpen SUBQ SCH ×2 (09:16→18:31)
--- NOTE | 2018-09-07 10:55 | Infectious Diseases Prog Note ---
Assessment/Plan Assessment/Plan antibiotics : meropenem A 1. e.coli sepsis secondary to UTI 2. e.coli UTI 3. leucocytosis 4. 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 continue meropenem 2. will follow up culture Subjective Constitutional: Denies: fever, chills Respiratory: Denies: shortness of breath, dry cough Gastrointestinal/Abdominal: Denies: nausea, vomiting, diarrhea Musculoskeletal: Denies: pain Allergies: Coded Allergies: No Known Allergies (Unverified , 05/27/15) Objective Vital Signs Last 24 Hour Vital Signs Date Time Temp Pulse Resp B/P (MAP) Pulse Ox O2 Delivery O2 Flow Rate FiO2 09/07/18 09:08 96 157/62 09/07/18 09:00 Room Air 09/07/18 08:00 99.5 96 21 157/62 (93) 97 09/07/18 04:00 101 09/07/18 04:00 98.9 102 20 166/65 (98) 94 09/07/18 00:00 97.9 101 20 156/77 (103) 95 09/07/18 00:00 96 09/06/18 21:00 Room Air 09/06/18 20:00 109 09/06/18 20:00 99.5 101 20 146/76 (99) 95 09/06/18 16:00 100 09/06/18 16:00 96.6 106 20 133/77 (95) 97 09/06/18 12:00 95 09/06/18 12:00 98.2 96 20 134/72 (92) 96 Height (Feet): 5 Height (Inches): 11.00 Weight (Pounds): 197 Respiratory/Chest: lungs clear Cardiovascular: normal rate, regular rhythm, no gallop/murmur Abdomen: soft, non tender Extremities: no edema Microbiology Date/Time Source Procedure Growth Status 09/04/18 16:00 Blood Blood Culture - Final Escherichia Coli - Esbl Complete 09/04/18 15:40 Blood Blood Culture - Final Escherichia Coli - Esbl Complete 09/04/18 16:00 Nasal Nares MRSA Culture - Final Staphylococcus Aureus - Mrsa Complete 09/04/18 16:00 Nasal Nares Influenza Types A,B Antigen (BIA) - Final Complete 09/04/18 15:40 Urine,Clean Catch Urine Culture - Final Escherichia Coli - Esbl Complete 09/04/18 16:00 Rectum VRE Culture - Final Enterococcus Faecalis - Vre Complete 09/04/18 16:00 Rectum - Final NO CARBAPENEM-RESISTANT ENTEROBACTERI... Complete Laboratory Tests Test 09/06/18 13:45 09/07/18 01:00 Urine Eosinophils None seen (NONE SEEN) None seen (NONE SEEN) Urine Random Sodium Pending Current Medications Medications (Trade) Dose Ordered Sig/Mayank Route PRN Reason Start Time Stop Time Status Last Admin Dose Admin Amlodipine Besylate (Norvasc) 10 mg DAILY ORAL 09/05/18 09:00 10/05/18 08:59 09/07/18 09:08 Clonidine HCl (Catapres Tab) 0.1 mg Q4H PRN ORAL For High Blood Pressure 09/05/18 15:30 10/05/18 15:29 Dextrose (Dextrose 50%) 25 ml Q30M PRN IV Hypoglycemia 09/07/18 07:30 10/07/18 07:29 Dextrose (Dextrose 50%) 50 ml Q30M PRN IV Hypoglycemia 09/07/18 07:30 10/07/18 07:29 Finasteride (Proscar) 5 mg DAILY ORAL 09/05/18 09:00 10/05/18 08:59 09/07/18 09:08 Insulin Aspart (NovoLOG) BEFORE MEALS AND HS SUBQ 09/04/18 22:00 10/04/18 21:59 09/07/18 06:11 Insulin Aspart (NovoLOG) 8 units NOVOTIAC SUBQ 09/07/18 11:50 10/07/18 11:49 Insulin Detemir (Levemir) 10 units BID SUBQ 09/06/18 18:00 10/06/18 17:59 09/07/18 09:16 Meropenem 500 mg/ Sodium Chloride 55 ml @ 110 mls/hr EVERY 12 HOURS IVPB 09/07/18 03:00 09/12/18 02:59 09/07/18 09:08 Nateglinide (Starlix) 120 mg THREE TIMES A DAY ORAL 09/05/18 09:00 10/05/18 08:59 09/07/18 09:08 Pantoprazole (Protonix) 40 mg EVERY 12 HOURS ORAL 09/05/18 21:00 10/05/18 20:59 09/07/18 09:08 Potassium Chloride 10 meq/ Sodium Chloride 1,005 ml @ 75 mls/hr [id number] IV 09/05/18 16:00 10/05/18 15:59 09/07/18 09:08 Tamsulosin HCl (Flomax) 0.4 mg BID ORAL 09/05/18 18:00 10/04/18 21:59 09/07/18 09:08 Paras Bustamante MD Sep 07, 2018 10:55
[2018-09-07 12:00] VITALS: BP 155/67
--- NOTE | 2018-09-07 14:46 | General Progress Note ---
Assessment/Plan Problem List: (1) BPH (benign prostatic hyperplasia) ICD Codes: N40.0 - Benign prostatic hyperplasia without lower urinary tract symptoms SNOMED: 248581801 (2) Anemia ICD Codes: D64.9 - Anemia, unspecified SNOMED: 524658979 (3) Fever ICD Codes: R50.9 - Fever, unspecified SNOMED: 482937659 (4) Sepsis ICD Codes: A41.9 - Sepsis, unspecified organism SNOMED: 19736128 (5) Diabetes ICD Codes: E11.9 - Type 2 diabetes mellitus without complications SNOMED: 16460227 (6) Generalized weakness ICD Codes: R53.1 - Weakness SNOMED: 99856203 (7) UTI (urinary tract infection) ICD Codes: N39.0 - Urinary tract infection, site not specified SNOMED: 61632982 (8) Hypertension ICD Codes: I10 - Essential (primary) hypertension SNOMED: 42165904 Status: progressing Assessment/Plan afebrile sepsis and uti reviewed chart improving obs no acute events Subjective ROS Limited/Unobtainable: Yes Allergies: Coded Allergies: No Known Allergies (Unverified , 05/27/15) Objective Last 24 Hour Vital Signs Date Time Temp Pulse Resp B/P (MAP) Pulse Ox O2 Delivery O2 Flow Rate FiO2 09/07/18 12:00 98.0 98 22 155/67 (96) 97 09/07/18 11:40 96 09/07/18 09:08 96 157/62 09/07/18 09:00 Room Air 09/07/18 08:00 99.5 96 21 157/62 (93) 97 09/07/18 07:45 103 09/07/18 04:00 101 09/07/18 04:00 98.9 102 20 166/65 (98) 94 09/07/18 00:00 97.9 101 20 156/77 (103) 95 09/07/18 00:00 96 09/06/18 21:00 Room Air 09/06/18 20:00 109 09/06/18 20:00 99.5 101 20 146/76 (99) 95 09/06/18 16:00 100 09/06/18 16:00 96.6 106 20 133/77 (95) 97 Intake and Output 09/06/18 09/07/18 19:00 07:00 Intake Total 1703.888 ml 975 ml Output Total 300 ml 1000 ml Balance 1403.888 ml -25 ml Intake Oral 640 ml IV Total 1063.888 ml 975 ml Output Urine Total 300 ml 1000 ml # Voids 1 Laboratory Tests 09/07/18 01:00: Urine Eosinophils None seen Height (Feet): 5 Height (Inches): 11.00 Weight (Pounds): 197 EENT: PERRL/EOMI Neck: supple Cardiovascular: normal rate Respiratory/Chest: lungs clear Abdomen: soft Aliyah Miller MD Sep 07, 2018 14:46
--- NOTE | 2018-09-07 15:04 | Nephrology Progress Note ---
Assessment/Plan Problem List: (1) Acute on chronic renal failure (2) Diabetic nephropathy (3) Anemia (4) BPH (benign prostatic hyperplasia) (5) UTI (urinary tract infection) Assessment Renal failure Cr lowering 3.1 to 2.6 Acute on Chronic Anemia Low K [place] UTI / Sepsis DM / Proteinuria: Nephropathyy BPH Plan flomax IV hydrate 2D echo pending SERGIO kidney noted Anemia mckeon per orders Antibiotics Subjective ROS Limited/Unobtainable: No Constitutional: Reports: malaise Objective Objective Last 24 Hour Vital Signs Date Time Temp Pulse Resp B/P (MAP) Pulse Ox O2 Delivery O2 Flow Rate FiO2 09/07/18 12:00 98.0 98 22 155/67 (96) 97 09/07/18 11:40 96 09/07/18 09:08 96 157/62 09/07/18 09:00 Room Air 09/07/18 08:00 99.5 96 21 157/62 (93) 97 09/07/18 07:45 103 09/07/18 04:00 101 09/07/18 04:00 98.9 102 20 166/65 (98) 94 09/07/18 00:00 97.9 101 20 156/77 (103) 95 09/07/18 00:00 96 09/06/18 21:00 Room Air 09/06/18 20:00 109 09/06/18 20:00 99.5 101 20 146/76 (99) 95 09/06/18 16:00 100 09/06/18 16:00 96.6 106 20 133/77 (95) 97 Intake and Output 09/06/18 09/07/18 19:00 07:00 Intake Total 1703.888 ml 975 ml Output Total 300 ml 1000 ml Balance 1403.888 ml -25 ml Intake Oral 640 ml IV Total 1063.888 ml 975 ml Output Urine Total 300 ml 1000 ml # Voids 1 Laboratory Tests 09/07/18 01:00: Urine Eosinophils None seen Height (Feet): 5 Height (Inches): 11.00 Weight (Pounds): 197 General Appearance: no apparent distress Cardiovascular: tachycardia Respiratory/Chest: decreased breath sounds Abdomen: soft Objective no change Rodrigue Mackenzie MD Sep 07, 2018 15:04
[2018-09-07 16:00] VITALS: BP 135/59
--- NOTE | 2018-09-07 19:28 | NUR ---
HAND-OFF: Report given to Jennifer Guerrero RN.
--- NOTE | 2018-09-07 19:30 | NUR ---
NURSE NOTES: Received patient from BENOIT Pedersen. Patient asleep. No signs of distress at this time. Condom catheter in place. Iv site intact and patent. Call light within reach. Bed brakes engaged.
[2018-09-07 21:00] VITALS: BP 143/58
[2018-09-08] VITALS: BP 142/65
[2018-09-08 04:00] VITALS: BP 152/66
[2018-09-08] MEDS: NovoLOG Insulin Flexpen SUBQ SCH ×7 (06:12→21:34)
--- NOTE | 2018-09-08 07:34 | NUR ---
NURSE NOTES: Received report from BENOIT Elmore. Patient in bed resting, no active s/s cardiac, respiratory distress noticed at this time. SR with HR 93, AO x2. IV on right wrist 22G asymptomatic, patent, intact. Endorsed urine collected at 0400. IV running at prescribed rate. Bed in lowest position, side rails upx3, call light within reach. Will continue to monitor.
--- NOTE | 2018-09-08 07:38 | NUR ---
HAND-OFF: Report given to BENOIT Sullivan. Endorsed plan of care.
--- NOTE | 2018-09-08 07:50 | General Progress Note ---
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 SNOMED: 16052619, 974453440 (2) Diabetes ICD Codes: E11.9 - Type 2 diabetes mellitus without complications SNOMED: 89611761 (3) Anemia ICD Codes: D64.9 - Anemia, unspecified SNOMED: 767500449 (4) Generalized weakness ICD Codes: R53.1 - Weakness SNOMED: 59447116 (5) Hypertension ICD Codes: I10 - Essential (primary) hypertension SNOMED: 56225198 Assessment/Plan continue Levemir 10 units bid continue Starlix 120 mg ac tid increase Novolog to 12 units ac tid continue NISS ac / hs Subjective Allergies: Coded Allergies: No Known Allergies (Unverified , 05/27/15) Subjective events noted mealtime glucose elevated Item Value Date Time Bedside Blood Glucose 105 mg/dl 09/08/18 0630 Bedside Blood Glucose 247 mg/dl H 09/07/18 2100 Bedside Blood Glucose 369 mg/dl H 09/07/18 1831 Bedside Blood Glucose 280 mg/dl H 09/07/18 1205 Bedside Blood Glucose 286 mg/dl H 09/07/18 0916 Bedside Blood Glucose 185 mg/dl H 09/07/18 0611 Objective Last 24 Hour Vital Signs Date Time Temp Pulse Resp B/P (MAP) Pulse Ox O2 Delivery O2 Flow Rate FiO2 09/08/18 04:00 98.7 93 19 152/66 (94) 96 09/08/18 03:32 88 09/08/18 00:00 99.0 80 18 142/65 (90) 97 09/07/18 23:41 86 09/07/18 21:00 Room Air 09/07/18 21:00 99.1 95 19 143/58 (86) 96 09/07/18 19:44 94 09/07/18 16:00 98.4 89 20 135/59 (84) 97 09/07/18 15:54 92 09/07/18 12:00 98.0 98 22 155/67 (96) 97 09/07/18 11:40 96 09/07/18 09:08 96 157/62 09/07/18 09:00 Room Air 09/07/18 08:00 99.5 96 21 157/62 (93) 97 Intake and Output 09/07/18 09/08/18 19:00 07:00 Intake Total 1260 ml 120 ml Output Total 1000 ml Balance 1260 ml -880 ml Intake Oral 360 ml 120 ml IV Total 900 ml Output Urine Total 1000 ml # Voids 3 Laboratory Tests 09/08/18 04:00: Urine Eosinophils None seen Height (Feet): 5 Height (Inches): 11.00 Weight (Pounds): 197 General Appearance: no apparent distress Neck: normal alignment Cardiovascular: normal peripheral pulses Respiratory/Chest: lungs clear Abdomen: normal bowel sounds Objective Current Medications Medications (Trade) Dose Ordered Sig/Mayank Route PRN Reason Start Time Stop Time Status Last Admin Dose Admin Amlodipine Besylate (Norvasc) 10 mg DAILY ORAL 09/05/18 09:00 10/05/18 08:59 09/07/18 09:08 Clonidine HCl (Catapres Tab) 0.1 mg Q4H PRN ORAL For High Blood Pressure 09/05/18 15:30 10/05/18 15:29 Dextrose (Dextrose 50%) 25 ml Q30M PRN IV Hypoglycemia 09/07/18 07:30 10/07/18 07:29 Dextrose (Dextrose 50%) 50 ml Q30M PRN IV Hypoglycemia 09/07/18 07:30 10/07/18 07:29 Finasteride (Proscar) 5 mg DAILY ORAL 09/05/18 09:00 10/05/18 08:59 09/07/18 09:08 Insulin Aspart (NovoLOG) BEFORE MEALS AND HS SUBQ 09/04/18 22:00 10/04/18 21:59 09/07/18 20:43 Insulin Aspart (NovoLOG) 8 units NOVOTIAC SUBQ 09/07/18 11:50 10/07/18 11:49 09/08/18 06:14 Insulin Detemir (Levemir) 10 units BID SUBQ 09/06/18 18:00 10/06/18 17:59 09/07/18 18:31 Meropenem 500 mg/ Sodium Chloride 55 ml @ 110 mls/hr EVERY 12 HOURS IVPB 09/07/18 03:00 09/12/18 02:59 09/07/18 20:46 Nateglinide (Starlix) 120 mg THREE TIMES A DAY ORAL 09/05/18 09:00 10/05/18 08:59 09/07/18 18:30 Pantoprazole (Protonix) 40 mg EVERY 12 HOURS ORAL 09/05/18 21:00 10/05/18 20:59 09/07/18 20:46 Potassium Chloride 10 meq/ Sodium Chloride 1,005 ml @ 75 mls/hr [id number] IV 09/05/18 16:00 10/05/18 15:59 09/07/18 20:47 Tamsulosin HCl (Flomax) 0.4 mg BID ORAL 09/05/18 18:00 10/04/18 21:59 09/07/18 18:30 Pj Stuart MD Sep 08, 2018 07:50
[2018-09-08 08:00] VITALS: BP 159/69
[2018-09-08] MEDS: Tamsulosin 0.4mg cap ORAL SCH ×2 (08:20→17:11)
[2018-09-08] MEDS: Meropenem 500 MG in NS 55 ML IVPB SCH ×2 (08:20→21:33)
[2018-09-08] MEDS: Levemir Flexpen SUBQ SCH ×2 (08:23→18:15)
[2018-09-08 10:44] LABS: BASOPHILS % (AUTO) 1.1 % (0.0-2.0); EOSINOPHILS % (AUTO) 1.6 % (0.0-3.0); HEMATOCRIT 27.7 % (42.0-52.0); HEMOGLOBIN 8.8 G/DL (14.2-18.0); LYMPHOCYTES % (AUTO) 8.4 % (20.0-45.0); MEAN CORPUSCULAR VOLUME 90 FL (80-99); MONOCYTES % (AUTO) 11.5 % (1.0-10.0); NEUTROPHILS % (AUTO) 77.4 % (45.0-75.0); PLATELET COUNT 239 K/UL (150-450); RED BLOOD COUNT 3.09 M/UL (4.70-6.10); RED CELL DISTRIBUTION WIDTH 13.9 % (11.6-14.8); WHITE BLOOD COUNT 16.1 K/UL (4.8-10.8)
[2018-09-08 10:51] LABS: ALANINE AMINOTRANSFERASE 39 U/L (12-78); ALBUMIN 1.8 G/DL (3.4-5.0); ALBUMIN/GLOBULIN RATIO 0.4 (1.0-2.7); ALKALINE PHOSPHATASE 86 U/L (46-116); ANION GAP 8 mmol/L (5-15); ASPARTATE AMINO TRANSFERASE 34 U/L (15-37); BILIRUBIN,TOTAL 0.8 MG/DL (0.2-1.0); BLOOD UREA NITROGEN 32 mg/dL (7-18); CALCIUM 8.1 MG/DL (8.5-10.1); CARBON DIOXIDE 24 MMOL/L (21-32); CHLORIDE 107 MMOL/L (98-107); CREATININE 2.1 MG/DL (0.55-1.30); POTASSIUM 3.9 MMOL/L (3.5-5.1); SODIUM 139 MMOL/L (136-145)
[2018-09-08] MEDS: Potassium Chloride 10 MEQ in 1/2 NS 1000ml 1,000 ML IV SCH (11:25)
--- NOTE | 2018-09-08 11:36 | Infectious Diseases Prog Note ---
Assessment/Plan Assessment/Plan A 1. E.coli sepsis secondary to UTI 2. E.coli UTI 3. leucocytosis 4. 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 continue meropenem 2. will follow up culture Subjective ROS Limited/Unobtainable: No Constitutional: Reports: no symptoms Respiratory: Reports: no symptoms Cardiovascular: Reports: no symptoms Genitourinary: Reports: no symptoms Allergies: Coded Allergies: No Known Allergies (Unverified , 05/27/15) Objective Vital Signs Last 24 Hour Vital Signs Date Time Temp Pulse Resp B/P (MAP) Pulse Ox O2 Delivery O2 Flow Rate FiO2 09/08/18 09:00 Room Air 09/08/18 08:22 95 156/71 09/08/18 08:00 98.8 88 18 159/69 (99) 98 09/08/18 04:00 98.7 93 19 152/66 (94) 96 09/08/18 03:32 88 09/08/18 00:00 99.0 80 18 142/65 (90) 97 09/07/18 23:41 86 09/07/18 21:00 Room Air 09/07/18 21:00 99.1 95 19 143/58 (86) 96 09/07/18 19:44 94 09/07/18 16:00 98.4 89 20 135/59 (84) 97 09/07/18 15:54 92 09/07/18 12:00 98.0 98 22 155/67 (96) 97 09/07/18 11:40 96 Height (Feet): 5 Height (Inches): 11.00 Weight (Pounds): 197 HEENT: mucous membranes moist Respiratory/Chest: lungs clear Cardiovascular: normal rate Abdomen: soft, non tender Genitourinary: other - Hitchcock catheter Neurologic/Psychiatric: alert, responsive Laboratory Tests Test 09/08/18 04:00 09/08/18 09:48 Urine Eosinophils None seen (NONE SEEN) White Blood Count 16.1 K/UL (4.8-10.8) H Red Blood Count 3.09 M/UL (4.70-6.10) L Hemoglobin 8.8 G/DL (14.2-18.0) L Hematocrit 27.7 % (42.0-52.0) L Mean Corpuscular Volume 90 FL (80-99) Mean Corpuscular Hemoglobin 28.5 PG (27.0-31.0) Mean Corpuscular Hemoglobin Concent 31.7 G/DL (32.0-36.0) L Red Cell Distribution Width 13.9 % (11.6-14.8) Platelet Count 239 K/UL (150-450) Mean Platelet Volume 7.6 FL (6.5-10.1) Neutrophils (%) (Auto) 77.4 % (45.0-75.0) H Lymphocytes (%) (Auto) 8.4 % (20.0-45.0) L Monocytes (%) (Auto) 11.5 % (1.0-10.0) H Eosinophils (%) (Auto) 1.6 % (0.0-3.0) Basophils (%) (Auto) 1.1 % (0.0-2.0) Sodium Level 139 MMOL/L (136-145) Potassium Level 3.9 MMOL/L (3.5-5.1) Chloride Level 107 MMOL/L (98-107) Carbon Dioxide Level 24 MMOL/L (21-32) Anion Gap 8 mmol/L (5-15) Blood Urea Nitrogen 32 mg/dL (7-18) H Creatinine 2.1 MG/DL (0.55-1.30) H Estimat Glomerular Filtration Rate mL/min (>60) Glucose Level 174 MG/DL (74-106) H Calcium Level 8.1 MG/DL (8.5-10.1) L Total Bilirubin 0.8 MG/DL (0.2-1.0) Aspartate Amino Transf (AST/SGOT) 34 U/L (15-37) Alanine Aminotransferase (ALT/SGPT) 39 U/L (12-78) Alkaline Phosphatase 86 U/L (46-116) Total Protein 6.8 G/DL (6.4-8.2) Albumin 1.8 G/DL (3.4-5.0) L Globulin 5.0 g/dL Albumin/Globulin Ratio 0.4 (1.0-2.7) L Current Medications Medications (Trade) Dose Ordered Sig/Mayank Route PRN Reason Start Time Stop Time Status Last Admin Dose Admin Amlodipine Besylate (Norvasc) 10 mg DAILY ORAL 09/05/18 09:00 10/05/18 08:59 09/08/18 08:22 Clonidine HCl (Catapres Tab) 0.1 mg Q4H PRN ORAL For High Blood Pressure 09/05/18 15:30 10/05/18 15:29 Dextrose (Dextrose 50%) 25 ml Q30M PRN IV Hypoglycemia 09/07/18 07:30 10/07/18 07:29 Dextrose (Dextrose 50%) 50 ml Q30M PRN IV Hypoglycemia 09/07/18 07:30 10/07/18 07:29 Finasteride (Proscar) 5 mg DAILY ORAL 09/05/18 09:00 10/05/18 08:59 09/08/18 08:20 Insulin Aspart (NovoLOG) BEFORE MEALS AND HS SUBQ 09/04/18 22:00 10/04/18 21:59 09/07/18 20:43 Insulin Aspart (NovoLOG) 12 units NOVOTIAC SUBQ 09/08/18 11:50 10/07/18 11:49 Insulin Detemir (Levemir) 10 units BID SUBQ 09/06/18 18:00 10/06/18 17:59 09/08/18 08:23 Meropenem 500 mg/ Sodium Chloride 55 ml @ 110 mls/hr EVERY 12 HOURS IVPB 09/07/18 03:00 09/12/18 02:59 09/08/18 08:20 Nateglinide (Starlix) 120 mg THREE TIMES A DAY ORAL 09/05/18 09:00 10/05/18 08:59 09/08/18 08:20 Pantoprazole (Protonix) 40 mg EVERY 12 HOURS ORAL 09/05/18 21:00 10/05/18 20:59 09/08/18 08:20 Potassium Chloride 10 meq/ Sodium Chloride 1,005 ml @ 75 mls/hr [id number] IV 09/05/18 16:00 10/05/18 15:59 09/08/18 11:25 Tamsulosin HCl (Flomax) 0.4 mg BID ORAL 09/05/18 18:00 10/04/18 21:59 09/08/18 08:20 Viktor Miranda MD Sep 08, 2018 11:36
[2018-09-08 12:00] VITALS: BP 144/58
--- NOTE | 2018-09-08 12:42 | NUR ---
CASE MANAGEMENT: REVIEW SI: SEPSIS T 99.0 HR 93 RR 18 BP 159/69 SAT 96% ROOM AIR WBC 16.1 H/H 8.8/27.7 BUN 32 CR 2.1 IS: MEROPENEM IV Q12HR PROTONIX PO Q12HR NORVASC PO QD TELEMETRY UNIT STATUS DCP: PATIENT IS FROM [facility]
--- NOTE | 2018-09-08 12:43 | General Progress Note ---
Assessment/Plan Problem List: (1) BPH (benign prostatic hyperplasia) ICD Codes: N40.0 - Benign prostatic hyperplasia without lower urinary tract symptoms SNOMED: 618193063 (2) Anemia ICD Codes: D64.9 - Anemia, unspecified SNOMED: 461590649 (3) Fever ICD Codes: R50.9 - Fever, unspecified SNOMED: 388093146 (4) Sepsis ICD Codes: A41.9 - Sepsis, unspecified organism SNOMED: 23767178 (5) Diabetes ICD Codes: E11.9 - Type 2 diabetes mellitus without complications SNOMED: 04962208 (6) Generalized weakness ICD Codes: R53.1 - Weakness SNOMED: 04445374 (7) UTI (urinary tract infection) ICD Codes: N39.0 - Urinary tract infection, site not specified SNOMED: 24042598 (8) Hypertension ICD Codes: I10 - Essential (primary) hypertension SNOMED: 06233126 Status: progressing Assessment/Plan afebrile sepsis and uti dropping hb so consulted dr odonnell no bleeding persistent leukocytosis not improving cri is stable Subjective ROS Limited/Unobtainable: Yes Allergies: Coded Allergies: No Known Allergies (Unverified , 05/27/15) Objective Last 24 Hour Vital Signs Date Time Temp Pulse Resp B/P (MAP) Pulse Ox O2 Delivery O2 Flow Rate FiO2 09/08/18 09:00 Room Air 09/08/18 08:22 95 156/71 09/08/18 08:00 98.8 88 18 159/69 (99) 98 09/08/18 04:00 98.7 93 19 152/66 (94) 96 09/08/18 03:32 88 09/08/18 00:00 99.0 80 18 142/65 (90) 97 09/07/18 23:41 86 09/07/18 21:00 Room Air 09/07/18 21:00 99.1 95 19 143/58 (86) 96 09/07/18 19:44 94 09/07/18 16:00 98.4 89 20 135/59 (84) 97 09/07/18 15:54 92 Intake and Output 09/07/18 09/08/18 18:59 06:59 Intake Total 1260 ml 195 ml Output Total 1000 ml Balance 1260 ml -805 ml Intake Oral 360 ml 120 ml IV Total 900 ml 75 ml Output Urine Total 1000 ml # Voids 3 Laboratory Tests 09/08/18 04:00: Urine Eosinophils None seen 09/08/18 09:48: White Blood Count 16.1H, Red Blood Count 3.09L, Hemoglobin 8.8L, Hematocrit 27.7L, Mean Corpuscular Volume 90, Mean Corpuscular Hemoglobin 28.5, Mean Corpuscular Hemoglobin Concent 31.7L, Red Cell Distribution Width 13.9, Platelet Count 239, Mean Platelet Volume 7.6, Neutrophils (%) (Auto) 77.4H, Lymphocytes (%) (Auto) 8.4L, Monocytes (%) (Auto) 11.5H, Eosinophils (%) (Auto) 1.6, Basophils (%) (Auto) 1.1, Sodium Level 139, Potassium Level 3.9, Chloride Level 107, Carbon Dioxide Level 24, Anion Gap 8, Blood Urea Nitrogen 32H, Creatinine 2.1H, Estimat Glomerular Filtration Rate , Glucose Level 174H, Calcium Level 8.1L, Total Bilirubin 0.8, Aspartate Amino Transf (AST/SGOT) 34, Alanine Aminotransferase (ALT/SGPT) 39, Alkaline Phosphatase 86, Total Protein 6.8, Albumin 1.8L, Globulin 5.0, Albumin/Globulin Ratio 0.4L Height (Feet): 5 Height (Inches): 11.00 Weight (Pounds): 197 General Appearance: confused Neck: supple Cardiovascular: normal rate Respiratory/Chest: lungs clear Aliyah Miller MD Sep 08, 2018 12:43
--- NOTE | 2018-09-08 13:20 | NUR ---
NURSE NOTES: Per Dr. Singh administer 1 unit of PRBC d/t dropping of hgb. Order noted, entered, carried out. Telephone consent received from [place]. Witnessed by 2 RNs, BENOIT Sullivan and BENOIT Perez. Paged blood bank, awaiting for blood transfusion.
[2018-09-08 16:00] VITALS: BP 146/58
--- NOTE | 2018-09-08 18:11 | Nephrology Progress Note ---
Assessment/Plan Problem List: (1) Acute on chronic renal failure (2) Diabetic nephropathy (3) Anemia (4) BPH (benign prostatic hyperplasia) (5) UTI (urinary tract infection) Assessment Renal failure Cr lowering 3.1 to 2.1 Acute on Chronic Anemia Low K Low Alb UTI / Sepsis DM / Proteinuria: Nephropathyy BPH Plan flomax IV hydrate 2D echo pending SERGIO kidney noted Anemia mckeon per orders Antibiotics Subjective ROS Limited/Unobtainable: No Constitutional: Reports: malaise Objective Objective Last 24 Hour Vital Signs Date Time Temp Pulse Resp B/P (MAP) Pulse Ox O2 Delivery O2 Flow Rate FiO2 09/08/18 16:00 97.9 86 18 146/58 (87) 99 09/08/18 16:00 83 09/08/18 12:00 98.1 82 20 144/58 (86) 98 09/08/18 12:00 81 09/08/18 09:00 Room Air 09/08/18 08:22 95 156/71 09/08/18 08:00 95 09/08/18 08:00 98.8 88 18 159/69 (99) 98 09/08/18 04:00 98.7 93 19 152/66 (94) 96 09/08/18 03:32 88 09/08/18 00:00 99.0 80 18 142/65 (90) 97 09/07/18 23:41 86 09/07/18 21:00 Room Air 09/07/18 21:00 99.1 95 19 143/58 (86) 96 09/07/18 19:44 94 Intake and Output 09/07/18 09/08/18 19:00 07:00 Intake Total 1260 ml 120 ml Output Total 1000 ml Balance 1260 ml -880 ml Intake Oral 360 ml 120 ml IV Total 900 ml Output Urine Total 1000 ml # Voids 3 Laboratory Tests 09/08/18 04:00: Urine Eosinophils None seen 09/08/18 09:48: White Blood Count 16.1H, Red Blood Count 3.09L, Hemoglobin 8.8L, Hematocrit 27.7L, Mean Corpuscular Volume 90, Mean Corpuscular Hemoglobin 28.5, Mean Corpuscular Hemoglobin Concent 31.7L, Red Cell Distribution Width 13.9, Platelet Count 239, Mean Platelet Volume 7.6, Neutrophils (%) (Auto) 77.4H, Lymphocytes (%) (Auto) 8.4L, Monocytes (%) (Auto) 11.5H, Eosinophils (%) (Auto) 1.6, Basophils (%) (Auto) 1.1, Sodium Level 139, Potassium Level 3.9, Chloride Level 107, Carbon Dioxide Level 24, Anion Gap 8, Blood Urea Nitrogen 32H, Creatinine 2.1H, Estimat Glomerular Filtration Rate , Glucose Level 174H, Calcium Level 8.1L, Total Bilirubin 0.8, Aspartate Amino Transf (AST/SGOT) 34, Alanine Aminotransferase (ALT/SGPT) 39, Alkaline Phosphatase 86, Total Protein 6.8, Albumin 1.8L, Globulin 5.0, Albumin/Globulin Ratio 0.4L Height (Feet): 5 Height (Inches): 11.00 Weight (Pounds): 197 General Appearance: no apparent distress Cardiovascular: tachycardia Respiratory/Chest: decreased breath sounds Abdomen: soft Objective no change Rodrigue Mackenzie MD Sep 08, 2018 18:11
--- NOTE | 2018-09-08 19:25 | Consultation ---
History of Present Illness General Date patient seen: Sep 08, 2018 Chief Complaint: Fever Present Illness Allergies: Coded Allergies: No Known Allergies (Unverified , 05/27/15) Medication History Scheduled Amlodipine Besylate* (Amlodipine Besylate*), 10 MG ORAL DAILY, (Reported) Bethanechol Chl* (Bethanechol Chloride*), 25 MG ORAL THREE TIMES A DAY, ( Reported) Finasteride* (Proscar*), 5 MG ORAL DAILY, (Reported) Hydralazine Hcl* (Hydralazine Hcl*), 75 MG ORAL QAM AND AT BEDTIME, (Reported) Insulin Detemir (Levemir), 46 SUBQ EVERY MORNING , (Reported) Mirtazapine* (Mirtazapine*), 7.5 MG ORAL BEDTIME, (Reported) Nateglinide* (Starlix*), 120 MG ORAL THREE TIMES A DAY, (Reported) Omeprazole (Omeprazole), 20 MG ORAL am, (Reported) Tamsulosin Hcl (Tamsulosin Hcl*), 0.4 MG ORAL BEDTIME, (Reported) Discontinued Medications Amoxicillin/Potassium Clav 875-125 Mg Tab* (Amox Tr-K Clv 875-125 Mg Tab*), 875 TAB ORAL EVERY 12 HOURS, (Reported) Discontinued Reason: Pt stopped taking med Benazepril Hcl* (Benazepril Hcl*), 20 MG ORAL am, (Reported) Discontinued Reason: Pt stopped taking med Bimatoprost (Lumigan), 1 DROP BOTH EYES hs, (Reported) Discontinued Reason: Pt stopped taking med Brimonidine Tartrate* (Alphagan*), 1 DROP BOTH EYES bid, (Reported) Discontinued Reason: Pt stopped taking med Clonidine Hcl* (Catapres*), 0.1 MG ORAL EVERY 4 HOURS, (Reported) Discontinued Reason: Pt stopped taking med Donepezil Hcl* (Donepezil Hcl*), 10 MG ORAL DAILY, (Reported) Discontinued Reason: Pt stopped taking med Doxazosin Mesylate* (Doxazosin Mesylate*), 2 MG ORAL am, (Reported) Discontinued Reason: Pt stopped taking med Esomeprazole Magnesium (Nexium), 40 MG ORAL DAILY, (Reported) Discontinued Reason: Pt stopped taking med Glimepiride* (Glimepiride*), 4 MG ORAL daily, (Reported) Discontinued Reason: Pt stopped taking med Hydralazine Hcl* (Hydralazine Hcl*), 75 MG ORAL EVERY 8 HOURS, (Reported) Discontinued Reason: Pt stopped taking med Insulin Aspart* (Novolog*), 0 SUBQ AC+HS, (Reported) Discontinued Reason: Pt stopped taking med Insulin Detemir (Levemir), 40 SUBQ daily, (Reported) Discontinued Reason: Medication dose changed Metoprolol Succinate* (Metoprolol Succinate*), 25 MG ORAL bid, (Reported) Discontinued Reason: Pt stopped taking med Metoprolol Tartrate* (Metoprolol Tartrate*), 75 MG ORAL EVERY 12 HOURS, ( Reported) Discontinued Reason: Pt stopped taking med Potassium Chloride (Klor-Con M20), 20 MEQ ORAL DAILY, (Reported) Discontinued Reason: Pt stopped taking med Repaglinide (Prandin), 2 MG ORAL THREE TIMES A DAY, (Reported) Discontinued Reason: Pt stopped taking med Tamsulosin Hcl (Tamsulosin Hcl*), 0.4 MG ORAL BEDTIME, (Reported) Discontinued Reason: Pt stopped taking med Patient History Healthcare decision maker Resuscitation status Full Code Advanced Directive on File Physical Exam Last 24 Hour Vital Signs Date Time Temp Pulse Resp B/P (MAP) Pulse Ox O2 Delivery O2 Flow Rate FiO2 09/08/18 16:00 97.9 86 18 146/58 (87) 99 09/08/18 16:00 83 09/08/18 12:00 98.1 82 20 144/58 (86) 98 09/08/18 12:00 81 09/08/18 09:00 Room Air 09/08/18 08:22 95 156/71 09/08/18 08:00 95 09/08/18 08:00 98.8 88 18 159/69 (99) 98 09/08/18 04:00 98.7 93 19 152/66 (94) 96 09/08/18 03:32 88 09/08/18 00:00 99.0 80 18 142/65 (90) 97 09/07/18 23:41 86 09/07/18 21:00 Room Air 09/07/18 21:00 99.1 95 19 143/58 (86) 96 09/07/18 19:44 94 Intake and Output 09/07/18 09/08/18 19:00 07:00 Intake Total 1260 ml 120 ml Output Total 1000 ml Balance 1260 ml -880 ml Intake Oral 360 ml 120 ml IV Total 900 ml Output Urine Total 1000 ml # Voids 3 Laboratory Tests Test 09/08/18 04:00 09/08/18 09:48 Urine Eosinophils None seen (NONE SEEN) White Blood Count 16.1 K/UL (4.8-10.8) H Red Blood Count 3.09 M/UL (4.70-6.10) L Hemoglobin 8.8 G/DL (14.2-18.0) L Hematocrit 27.7 % (42.0-52.0) L Mean Corpuscular Volume 90 FL (80-99) Mean Corpuscular Hemoglobin 28.5 PG (27.0-31.0) Mean Corpuscular Hemoglobin Concent 31.7 G/DL (32.0-36.0) L Red Cell Distribution Width 13.9 % (11.6-14.8) Platelet Count 239 K/UL (150-450) Mean Platelet Volume 7.6 FL (6.5-10.1) Neutrophils (%) (Auto) 77.4 % (45.0-75.0) H Lymphocytes (%) (Auto) 8.4 % (20.0-45.0) L Monocytes (%) (Auto) 11.5 % (1.0-10.0) H Eosinophils (%) (Auto) 1.6 % (0.0-3.0) Basophils (%) (Auto) 1.1 % (0.0-2.0) Sodium Level 139 MMOL/L (136-145) Potassium Level 3.9 MMOL/L (3.5-5.1) Chloride Level 107 MMOL/L (98-107) Carbon Dioxide Level 24 MMOL/L (21-32) Anion Gap 8 mmol/L (5-15) Blood Urea Nitrogen 32 mg/dL (7-18) H Creatinine 2.1 MG/DL (0.55-1.30) H Estimat Glomerular Filtration Rate mL/min (>60) Glucose Level 174 MG/DL (74-106) H Calcium Level 8.1 MG/DL (8.5-10.1) L Total Bilirubin 0.8 MG/DL (0.2-1.0) Aspartate Amino Transf (AST/SGOT) 34 U/L (15-37) Alanine Aminotransferase (ALT/SGPT) 39 U/L (12-78) Alkaline Phosphatase 86 U/L (46-116) Total Protein 6.8 G/DL (6.4-8.2) Albumin 1.8 G/DL (3.4-5.0) L Globulin 5.0 g/dL Albumin/Globulin Ratio 0.4 (1.0-2.7) L Height (Feet): 5 Height (Inches): 11.00 Weight (Pounds): 197 Medications Current Medications Medications (Trade) Dose Ordered Sig/Mayank Route PRN Reason Start Time Stop Time Status Last Admin Dose Admin Amlodipine Besylate (Norvasc) 10 mg DAILY ORAL 09/05/18 09:00 10/05/18 08:59 09/08/18 08:22 Clonidine HCl (Catapres Tab) 0.1 mg Q4H PRN ORAL For High Blood Pressure 09/05/18 15:30 10/05/18 15:29 Dextrose (Dextrose 50%) 25 ml Q30M PRN IV Hypoglycemia 09/07/18 07:30 10/07/18 07:29 Dextrose (Dextrose 50%) 50 ml Q30M PRN IV Hypoglycemia 09/07/18 07:30 10/07/18 07:29 Finasteride (Proscar) 5 mg DAILY ORAL 09/05/18 09:00 10/05/18 08:59 09/08/18 08:20 Insulin Aspart (NovoLOG) BEFORE MEALS AND HS SUBQ 09/04/18 22:00 10/04/18 21:59 09/08/18 17:16 Insulin Aspart (NovoLOG) 12 units NOVOTIAC SUBQ 09/08/18 11:50 10/07/18 11:49 Insulin Detemir (Levemir) 10 units BID SUBQ 09/06/18 18:00 10/06/18 17:59 09/08/18 18:15 Meropenem 500 mg/ Sodium Chloride 55 ml @ 110 mls/hr EVERY 12 HOURS IVPB 09/07/18 03:00 09/12/18 02:59 09/08/18 08:20 Nateglinide (Starlix) 120 mg THREE TIMES A DAY ORAL 09/05/18 09:00 10/05/18 08:59 09/08/18 17:11 Pantoprazole (Protonix) 40 mg EVERY 12 HOURS ORAL 09/05/18 21:00 10/05/18 20:59 09/08/18 08:20 Potassium Chloride 10 meq/ Sodium Chloride 1,005 ml @ 75 mls/hr [id number] IV 09/05/18 16:00 10/05/18 15:59 09/08/18 11:25 Tamsulosin HCl (Flomax) 0.4 mg BID ORAL 09/05/18 18:00 10/04/18 21:59 09/08/18 17:11 Assessment/Plan Assessment/Plan Hematology consultation REQ MD: Aliyah Miller RFC: Anemia of chronic disease, leukopcytosis DOS: 09/08/18 ID Patient is an 80-year-old male sent in by nursing facility for increased generalized weakness and vomiting. Patient was noted to have become febrile. He was noted to have temperature up to 102 degrees. He was noted to have nonproductive cough as well as increased difficulty breathing. Startedon abx as per id, was noted to have anemia and heme was consulted. Coded Allergies: No Known Allergies (Unverified , 05/27/15) Patient History Past Medical History: see triage record Reviewed Nursing Documentation: PMH: Agreed; PSxH: Agreed Nursing Documentation-PMH Past Medical History: No History, Except For Hx Cardiac Problems: Yes Hx Hypertension: Yes Hx Diabetes: Yes Hx Cancer: No Hx Gastrointestinal Problems: No Hx Dialysis: No - Chronic Kidney Disease, UTI Hx Neurological Problems: No ROS: limited - by poor historian Last 24 Hour Vital Signs Date Time Temp Pulse Resp B/P (MAP) Pulse Ox O2 Delivery O2 Flow Rate FiO2 09/08/18 16:00 97.9 86 18 146/58 (87) 99 09/08/18 16:00 83 09/08/18 12:00 98.1 82 20 144/58 (86) 98 09/08/18 12:00 81 09/08/18 09:00 Room Air 09/08/18 08:22 95 156/71 09/08/18 08:00 95 09/08/18 08:00 98.8 88 18 159/69 (99) 98 09/08/18 04:00 98.7 93 19 152/66 (94) 96 09/08/18 03:32 88 09/08/18 00:00 99.0 80 18 142/65 (90) 97 09/07/18 23:41 86 09/07/18 21:00 Room Air 09/07/18 21:00 99.1 95 19 143/58 (86) 96 09/07/18 19:44 94 PE ENT: dry mucus membranes Neck: limited range of motion Respiratory: decreased breath sounds Cardiovascular #1: normal peripheral pulses, regular rate, rhythm Gastrointestinal: normal bowel sounds, soft, tenderness - suprapubic Musculoskeletal: decreased range of motion Neurologic: normal inspection, alert, responsive Psychiatric: normal inspection Skin: normal inspection, normal color Laboratory Tests Test 09/08/18 04:00 09/08/18 09:48 Urine Eosinophils None seen (NONE SEEN) White Blood Count 16.1 K/UL (4.8-10.8) H Red Blood Count 3.09 M/UL (4.70-6.10) L Hemoglobin 8.8 G/DL (14.2-18.0) L Hematocrit 27.7 % (42.0-52.0) L Mean Corpuscular Volume 90 FL (80-99) Mean Corpuscular Hemoglobin 28.5 PG (27.0-31.0) Mean Corpuscular Hemoglobin Concent 31.7 G/DL (32.0-36.0) L Red Cell Distribution Width 13.9 % (11.6-14.8) Platelet Count 239 K/UL (150-450) Mean Platelet Volume 7.6 FL (6.5-10.1) Neutrophils (%) (Auto) 77.4 % (45.0-75.0) H Lymphocytes (%) (Auto) 8.4 % (20.0-45.0) L Monocytes (%) (Auto) 11.5 % (1.0-10.0) H Eosinophils (%) (Auto) 1.6 % (0.0-3.0) Basophils (%) (Auto) 1.1 % (0.0-2.0) Sodium Level 139 MMOL/L (136-145) Potassium Level 3.9 MMOL/L (3.5-5.1) Chloride Level 107 MMOL/L (98-107) Carbon Dioxide Level 24 MMOL/L (21-32) Anion Gap 8 mmol/L (5-15) Blood Urea Nitrogen 32 mg/dL (7-18) H Creatinine 2.1 MG/DL (0.55-1.30) H Estimat Glomerular Filtration Rate mL/min (>60) Glucose Level 174 MG/DL (74-106) H Calcium Level 8.1 MG/DL (8.5-10.1) L Total Bilirubin 0.8 MG/DL (0.2-1.0) Aspartate Amino Transf (AST/SGOT) 34 U/L (15-37) Alanine Aminotransferase (ALT/SGPT) 39 U/L (12-78) Alkaline Phosphatase 86 U/L (46-116) Total Protein 6.8 G/DL (6.4-8.2) Albumin 1.8 G/DL (3.4-5.0) L Globulin 5.0 g/dL Albumin/Globulin Ratio 0.4 (1.0-2.7) L Assessment and Recs: # Anemia of chronic disease (or of iron deficiency) due to underlying chronic medical issues, multifactorial --> Anemia workup has been ordered --> No evidence of hemolysis is noted, peripheral smear has been reviewed. --> Hgb goal >7. Transfuse prn. --> Epogen or iron at this time is not particularly indicated --> Medications have been reviewed # Leukocytosis. Likely related to underlying infection versus reactive process. --> have reviewed peripheral smear and bandemia/neutrophilia noted (this is not always the case so make sure neutrophils are >75% of the total wbc) --> continue antibiotics if they have been started by ID team --> monitor for resolution --> if the wbc count has improved then say improved in the first line --> on abx as per id # UTi with sepsis --> management as per id. --> CT of abdomen pelvis without contrast read by radiology showed bladder thickening and possible cystitis.Patient was started on IV fluids. Patient was given IV antibiotics Dr. Aliyah Degroot was contacted for inpatient management ==> as per id recs # MISAEL on ckd --> as per renal team # DM nephropathy # BPH # Hypokalemia --> replete with k as needed The timing of this note does not necessarily reflect the time of the patient was seen. Greatly appreciate consultation! Cesar Singh MD Sep 08, 2018 19:25
--- NOTE | 2018-09-08 19:44 | NUR ---
HAND-OFF: Report given to BENOIT [place].
--- NOTE | 2018-09-08 19:46 | NUR ---
NURSE NOTES: Received report from BENOIT Sullivan. Observed pt sleeping on the bed, arousable by voice. No signs of pain noted. Blood transfusion done. VS within normal range. SR with secured entrance monitor. On room air with no signs of sob. Condom cath intact and draining well. IV on R wrist 22G running 1/2 NS 10meq KCL at 75cc/hr. Bed in the lowest position. Call light within reach. Side rails up x2. Will continue to monitor.
[2018-09-08 20:00] VITALS: BP 135/59
--- NOTE | 2018-09-08 23:36 | NUR ---
NURSE NOTES: Observed pt sleeping on the bed. No acute distress noted at this time. SR with principal bioinformatics specialist. IV site intact and running 1/2NS 10meq KCL @ 75cc/hr. Will continue to monitor.
[2018-09-09] VITALS: BP 155/73
--- NOTE | 2018-09-09 01:30 | NUR ---
NURSE NOTES: New IV site on L H 22G, intact and running IVF. Observed pt sleeping on the bed. No distress noted at this time.
[2018-09-09] MEDS: Potassium Chloride 10 MEQ in 1/2 NS 1000ml 1,000 ML IV SCH (02:53)
[2018-09-09 04:00] VITALS: BP 144/72
[2018-09-09] MEDS: NovoLOG Insulin Flexpen SUBQ SCH ×3 (06:30→11:20)
--- NOTE | 2018-09-09 06:36 | General Progress Note ---
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 SNOMED: 08684905, 587434910 (2) Diabetes ICD Codes: E11.9 - Type 2 diabetes mellitus without complications SNOMED: 11291803 (3) Anemia ICD Codes: D64.9 - Anemia, unspecified SNOMED: 024632970 (4) Generalized weakness ICD Codes: R53.1 - Weakness SNOMED: 29109332 (5) Hypertension ICD Codes: I10 - Essential (primary) hypertension SNOMED: 29308248 Assessment/Plan continue Levemir 10 units bid continue Starlix 120 mg ac tid reduce Novolog to 6 units ac tid continue NISS ac / hs Subjective Allergies: Coded Allergies: No Known Allergies (Unverified , 05/27/15) All Systems: reviewed and negative except above Subjective events noted Item Value Date Time Bedside Blood Glucose 110 mg/dl 09/09/18 0630 Bedside Blood Glucose 207 mg/dl H 09/08/18 2134 Bedside Blood Glucose 200 mg/dl H 09/08/18 1815 Bedside Blood Glucose 164 mg/dl H 09/08/18 1251 Bedside Blood Glucose 171 mg/dl H 09/08/18 0823 Objective Last 24 Hour Vital Signs Date Time Temp Pulse Resp B/P (MAP) Pulse Ox O2 Delivery O2 Flow Rate FiO2 09/09/18 04:00 86 09/09/18 04:00 98.7 85 20 144/72 (96) 97 09/09/18 00:00 98.5 86 20 155/73 (100) 97 09/09/18 00:00 85 09/08/18 21:00 Room Air 09/08/18 20:00 85 09/08/18 20:00 98.2 84 20 135/59 (84) 97 09/08/18 16:00 97.9 86 18 146/58 (87) 99 09/08/18 16:00 83 09/08/18 12:00 98.1 82 20 144/58 (86) 98 09/08/18 12:00 81 09/08/18 09:00 Room Air 09/08/18 08:22 95 156/71 09/08/18 08:00 95 09/08/18 08:00 98.8 88 18 159/69 (99) 98 Intake and Output 09/08/18 09/09/18 19:00 07:00 Intake Total 360 ml 880 ml Output Total 650 ml 1100 ml Balance -290 ml -220 ml Intake Oral 360 ml IV Total 880 ml Output Urine Total 650 ml 1100 ml # Voids 1 Laboratory Tests 09/08/18 09:48: White Blood Count 16.1H, Red Blood Count 3.09L, Hemoglobin 8.8L, Hematocrit 27.7L, Mean Corpuscular Volume 90, Mean Corpuscular Hemoglobin 28.5, Mean Corpuscular Hemoglobin Concent 31.7L, Red Cell Distribution Width 13.9, Platelet Count 239, Mean Platelet Volume 7.6, Neutrophils (%) (Auto) 77.4H, Lymphocytes (%) (Auto) 8.4L, Monocytes (%) (Auto) 11.5H, Eosinophils (%) (Auto) 1.6, Basophils (%) (Auto) 1.1, Sodium Level 139, Potassium Level 3.9, Chloride Level 107, Carbon Dioxide Level 24, Anion Gap 8, Blood Urea Nitrogen 32H, Creatinine 2.1H, Estimat Glomerular Filtration Rate , Glucose Level 174H, Calcium Level 8.1L, Total Bilirubin 0.8, Aspartate Amino Transf (AST/SGOT) 34, Alanine Aminotransferase (ALT/SGPT) 39, Alkaline Phosphatase 86, C-Reactive Protein, Quantitative 30.0H, Total Protein 6.8, Albumin 1.8L, Globulin 5.0, Albumin/Globulin Ratio 0.4L Height (Feet): 5 Height (Inches): 11.00 Weight (Pounds): 197 General Appearance: no apparent distress Neck: normal alignment Cardiovascular: normal rate Respiratory/Chest: decreased breath sounds Abdomen: normal bowel sounds Objective Current Medications Medications (Trade) Dose Ordered Sig/Mayank Route PRN Reason Start Time Stop Time Status Last Admin Dose Admin Amlodipine Besylate (Norvasc) 10 mg DAILY ORAL 09/05/18 09:00 10/05/18 08:59 09/08/18 08:22 Clonidine HCl (Catapres Tab) 0.1 mg Q4H PRN ORAL For High Blood Pressure 09/05/18 15:30 10/05/18 15:29 Dextrose (Dextrose 50%) 25 ml Q30M PRN IV Hypoglycemia 09/07/18 07:30 10/07/18 07:29 Dextrose (Dextrose 50%) 50 ml Q30M PRN IV Hypoglycemia 09/07/18 07:30 10/07/18 07:29 Finasteride (Proscar) 5 mg DAILY ORAL 09/05/18 09:00 10/05/18 08:59 09/08/18 08:20 Insulin Aspart (NovoLOG) BEFORE MEALS AND HS SUBQ 09/04/18 22:00 10/04/18 21:59 09/08/18 21:34 Insulin Aspart (NovoLOG) 12 units NOVOTIAC SUBQ 09/08/18 11:50 10/07/18 11:49 Insulin Detemir (Levemir) 10 units BID SUBQ 09/06/18 18:00 10/06/18 17:59 09/08/18 18:15 Meropenem 500 mg/ Sodium Chloride 55 ml @ 110 mls/hr EVERY 12 HOURS IVPB 09/07/18 03:00 09/12/18 02:59 09/08/18 21:33 Nateglinide (Starlix) 120 mg THREE TIMES A DAY ORAL 09/05/18 09:00 10/05/18 08:59 09/08/18 17:11 Pantoprazole (Protonix) 40 mg EVERY 12 HOURS ORAL 09/05/18 21:00 10/05/18 20:59 09/08/18 21:33 Potassium Chloride 10 meq/ Sodium Chloride 1,005 ml @ 75 mls/hr [id number] IV 09/05/18 16:00 10/05/18 15:59 09/09/18 02:53 Tamsulosin HCl (Flomax) 0.4 mg BID ORAL 09/05/18 18:00 10/04/18 21:59 09/08/18 17:11 Pj Stuart MD Sep 09, 2018 06:36
[2018-09-09 06:54] LABS: BASOPHILS % (AUTO) 1.1 % (0.0-2.0); EOSINOPHILS % (AUTO) 2.5 % (0.0-3.0); HEMATOCRIT 28.2 % (42.0-52.0); HEMOGLOBIN 9.1 G/DL (14.2-18.0); MEAN CORPUSCULAR VOLUME 88 FL (80-99); MONOCYTES % (AUTO) 11.5 % (1.0-10.0); NEUTROPHILS % (AUTO) 71.9 % (45.0-75.0); PLATELET COUNT 264 K/UL (150-450); RED CELL DISTRIBUTION WIDTH 14.8 % (11.6-14.8); WHITE BLOOD COUNT 13.3 K/UL (4.8-10.8)
--- NOTE | 2018-09-09 07:21 | NUR ---
HAND-OFF: Report given to BENOIT Ham.
--- NOTE | 2018-09-09 07:22 | NUR ---
NURSE NOTES: Received report from BENOIT Bojorquez. Patient is in stable condition. No acute distress/SOB noted. Patient denies any pain/discomfort. Will continue plan of care.
[2018-09-09 07:37] LABS: ALANINE AMINOTRANSFERASE 35 U/L (12-78); ALBUMIN 1.7 G/DL (3.4-5.0); ALBUMIN/GLOBULIN RATIO 0.4 (1.0-2.7); ALKALINE PHOSPHATASE 82 U/L (46-116); ANION GAP 9 mmol/L (5-15); ASPARTATE AMINO TRANSFERASE 31 U/L (15-37); BILIRUBIN,TOTAL 0.7 MG/DL (0.2-1.0); BLOOD UREA NITROGEN 27 mg/dL (7-18); CARBON DIOXIDE 25 MMOL/L (21-32); CHLORIDE 108 MMOL/L (98-107); POTASSIUM 3.8 MMOL/L (3.5-5.1); SODIUM 142 MMOL/L (136-145)
[2018-09-09 08:00] VITALS: BP 148/75
[2018-09-09] MEDS: Tamsulosin 0.4mg cap ORAL SCH (08:13)
[2018-09-09] MEDS: Meropenem 500 MG in NS 55 ML IVPB SCH (08:14)
[2018-09-09] MEDS: Levemir Flexpen SUBQ SCH (08:19)
--- NOTE | 2018-09-09 10:33 | NUR ---
DISCHARGE PLANNING DISCHARGE ORDER NOTED PATIENT IS FROM [facility] FAXED TO [facility] PER MD'S ORDER MESSAGE LEFT FOR PATIENT'S SON~ TARIQ ESCAMILLA T: [phone] ...REGARDING DISCHARGE PLAN Addendum: 09/09/18 at 1106 by MARY LOU LAWRENCE LVN LVN KEG RAISER DISCUSSED DISCHARGE PLAN TO [facility] WITH PATIENT AND HE IS IN AGREEMENT
[2018-09-09] MEDS ORDERED: NovoLOG Insulin Flexpen SUBQ SCH (11:50)
[2018-09-09 12:00] VITALS: BP 175/83
--- NOTE | 2018-09-09 12:16 | NUR ---
DISCHARGE PLANNED RECEIVED ACCEPTANCE CALL FROM [facility] PATIENT WILL DISCHARGE TO [facility] ROOM [address] T: [phone] FOR NURSE TO NURSE REPORT [facility] HAS BEEN ARRANGED FOR 1400 LOGISTICS/SHIPPER Addendum: 09/09/18 at 1237 by MARY LOU LAWRENCE LVN LVN AMBULANCE BEULAH Danielson SKILLED
--- NOTE | 2018-09-09 12:25 | Nephrology Progress Note ---
Assessment/Plan Problem List: (1) Acute on chronic renal failure (2) Diabetic nephropathy (3) Anemia (4) BPH (benign prostatic hyperplasia) (5) UTI (urinary tract infection) Assessment Renal failure Cr lowering 3.1 to 2.1 Acute on Chronic Anemia Low K [place] UTI / Sepsis DM / Proteinuria: Nephropathyy BPH Plan flomax IV hydrate 2D echo pending SERGIO kidney noted Anemia mckeon per orders Antibiotics Subjective ROS Limited/Unobtainable: No Constitutional: Reports: malaise Objective Objective Last 24 Hour Vital Signs Date Time Temp Pulse Resp B/P (MAP) Pulse Ox O2 Delivery O2 Flow Rate FiO2 09/09/18 11:17 175/83 09/09/18 09:00 Room Air 09/09/18 08:12 80 148/75 09/09/18 08:00 90 09/09/18 08:00 97.9 80 20 148/75 (99) 99 09/09/18 04:00 86 09/09/18 04:00 98.7 85 20 144/72 (96) 97 09/09/18 00:00 98.5 86 20 155/73 (100) 97 09/09/18 00:00 85 09/08/18 21:00 Room Air 09/08/18 20:00 85 09/08/18 20:00 98.2 84 20 135/59 (84) 97 09/08/18 16:00 97.9 86 18 146/58 (87) 99 09/08/18 16:00 83 Intake and Output 09/08/18 09/09/18 19:00 07:00 Intake Total 360 ml 955 ml Output Total 650 ml 1100 ml Balance -290 ml -145 ml Intake Oral 360 ml IV Total 955 ml Output Urine Total 650 ml 1100 ml # Voids 1 Laboratory Tests 09/09/18 04:55: White Blood Count 13.3H, Red Blood Count 3.20L, Hemoglobin 9.1L, Hematocrit 28.2L, Mean Corpuscular Volume 88, Mean Corpuscular Hemoglobin 28.4, Mean Corpuscular Hemoglobin Concent 32.2, Red Cell Distribution Width 14.8, Platelet Count 264, Mean Platelet Volume 7.1, Neutrophils (%) (Auto) 71.9, Lymphocytes (% ) (Auto) 13.0L, Monocytes (%) (Auto) 11.5H, Eosinophils (%) (Auto) 2.5, Basophils (%) (Auto) 1.1, Sodium Level 142, Potassium Level 3.8, Chloride Level 108H, Carbon Dioxide Level 25, Anion Gap 9, Blood Urea Nitrogen 27H, Creatinine 2.0H, Estimat Glomerular Filtration Rate , Glucose Level 104, Uric Acid 4.9, Calcium Level 8.0L, Phosphorus Level 3.0, Magnesium Level 1.7L, Total Bilirubin 0.7, Aspartate Amino Transf (AST/SGOT) 31, Alanine Aminotransferase (ALT/SGPT) 35, Alkaline Phosphatase 82, Pro-B-Type Natriuretic Peptide 633H, Total Protein 6.5, Albumin 1.7L, Globulin 4.8, Albumin/Globulin Ratio 0.4L Height (Feet): 5 Height (Inches): 11.00 Weight (Pounds): 197 General Appearance: no apparent distress Cardiovascular: normal rate Respiratory/Chest: decreased breath sounds Abdomen: soft Objective no change Rodrigue Mackenzie MD Sep 09, 2018 12:25
--- NOTE | 2018-09-09 13:00 | NUR ---
NURSE NOTES: Discharge instruction given to patient and verbalize understanding. Heart monitor removed. Inventory check done.
--- NOTE | 2018-09-09 13:12 | Infectious Diseases Prog Note ---
Assessment/Plan Assessment/Plan A 1. E.coli sepsis secondary to UTI 2. E.coli UTI 3. leucocytosis 4. 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 continue meropenem X 5 days 2. Agree with discharge Subjective ROS Limited/Unobtainable: No Constitutional: Reports: no symptoms Respiratory: Reports: no symptoms Cardiovascular: Reports: no symptoms Gastrointestinal/Abdominal: Reports: no symptoms Genitourinary: Reports: no symptoms Allergies: Coded Allergies: No Known Allergies (Unverified , 05/27/15) Objective Vital Signs Last 24 Hour Vital Signs Date Time Temp Pulse Resp B/P (MAP) Pulse Ox O2 Delivery O2 Flow Rate FiO2 09/09/18 12:00 97.7 90 20 175/83 (113) 98 09/09/18 11:17 175/83 09/09/18 09:00 Room Air 09/09/18 08:12 80 148/75 09/09/18 08:00 90 09/09/18 08:00 97.9 80 20 148/75 (99) 99 09/09/18 04:00 86 09/09/18 04:00 98.7 85 20 144/72 (96) 97 09/09/18 00:00 98.5 86 20 155/73 (100) 97 09/09/18 00:00 85 09/08/18 21:00 Room Air 09/08/18 20:00 85 09/08/18 20:00 98.2 84 20 135/59 (84) 97 09/08/18 16:00 97.9 86 18 146/58 (87) 99 09/08/18 16:00 83 Height (Feet): 5 Height (Inches): 11.00 Weight (Pounds): 197 General Appearance: no acute distress HEENT: mucous membranes moist Respiratory/Chest: lungs clear Cardiovascular: normal rate Abdomen: soft, non tender Extremities: no edema Neurologic/Psychiatric: alert, responsive Laboratory Tests Test 09/09/18 04:55 White Blood Count 13.3 K/UL (4.8-10.8) H Red Blood Count 3.20 M/UL (4.70-6.10) L Hemoglobin 9.1 G/DL (14.2-18.0) L Hematocrit 28.2 % (42.0-52.0) L Mean Corpuscular Volume 88 FL (80-99) Mean Corpuscular Hemoglobin 28.4 PG (27.0-31.0) Mean Corpuscular Hemoglobin Concent 32.2 G/DL (32.0-36.0) Red Cell Distribution Width 14.8 % (11.6-14.8) Platelet Count 264 K/UL (150-450) Mean Platelet Volume 7.1 FL (6.5-10.1) Neutrophils (%) (Auto) 71.9 % (45.0-75.0) Lymphocytes (%) (Auto) 13.0 % (20.0-45.0) L Monocytes (%) (Auto) 11.5 % (1.0-10.0) H Eosinophils (%) (Auto) 2.5 % (0.0-3.0) Basophils (%) (Auto) 1.1 % (0.0-2.0) Sodium Level 142 MMOL/L (136-145) Potassium Level 3.8 MMOL/L (3.5-5.1) Chloride Level 108 MMOL/L (98-107) H Carbon Dioxide Level 25 MMOL/L (21-32) Anion Gap 9 mmol/L (5-15) Blood Urea Nitrogen 27 mg/dL (7-18) H Creatinine 2.0 MG/DL (0.55-1.30) H Estimat Glomerular Filtration Rate mL/min (>60) Glucose Level 104 MG/DL (74-106) Uric Acid 4.9 MG/DL (2.6-7.2) Calcium Level 8.0 MG/DL (8.5-10.1) L Phosphorus Level 3.0 MG/DL (2.5-4.9) Magnesium Level 1.7 MG/DL (1.8-2.4) L Total Bilirubin 0.7 MG/DL (0.2-1.0) Aspartate Amino Transf (AST/SGOT) 31 U/L (15-37) Alanine Aminotransferase (ALT/SGPT) 35 U/L (12-78) Alkaline Phosphatase 82 U/L (46-116) Pro-B-Type Natriuretic Peptide 633 pg/mL (0-125) H Total Protein 6.5 G/DL (6.4-8.2) Albumin 1.7 G/DL (3.4-5.0) L Globulin 4.8 g/dL Albumin/Globulin Ratio 0.4 (1.0-2.7) L Current Medications Medications (Trade) Dose Ordered Sig/Mayank Route PRN Reason Start Time Stop Time Status Last Admin Dose Admin Amlodipine Besylate (Norvasc) 10 mg DAILY ORAL 09/05/18 09:00 10/05/18 08:59 09/09/18 08:12 Clonidine HCl (Catapres Tab) 0.1 mg Q4H PRN ORAL For High Blood Pressure 09/05/18 15:30 10/05/18 15:29 09/09/18 11:17 Dextrose (Dextrose 50%) 25 ml Q30M PRN IV Hypoglycemia 09/07/18 07:30 10/07/18 07:29 Dextrose (Dextrose 50%) 50 ml Q30M PRN IV Hypoglycemia 09/07/18 07:30 10/07/18 07:29 Finasteride (Proscar) 5 mg DAILY ORAL 09/05/18 09:00 10/05/18 08:59 09/09/18 08:13 Insulin Aspart (NovoLOG) BEFORE MEALS AND HS SUBQ 09/04/18 22:00 10/04/18 21:59 09/09/18 11:20 Insulin Aspart (NovoLOG) 6 units NOVOTIAC SUBQ 09/09/18 11:50 10/07/18 11:49 09/09/18 11:20 Insulin Detemir (Levemir) 10 units BID SUBQ 09/06/18 18:00 10/06/18 17:59 09/09/18 08:19 Meropenem 500 mg/ Sodium Chloride 55 ml @ 110 mls/hr EVERY 12 HOURS IVPB 09/07/18 03:00 09/12/18 02:59 09/09/18 08:14 Nateglinide (Starlix) 120 mg THREE TIMES A DAY ORAL 09/05/18 09:00 10/05/18 08:59 09/09/18 12:16 Pantoprazole (Protonix) 40 mg EVERY 12 HOURS ORAL 09/05/18 21:00 10/05/18 20:59 09/09/18 08:13 Potassium Chloride 10 meq/ Sodium Chloride 1,005 ml @ 75 mls/hr [id number] IV 09/05/18 16:00 10/05/18 15:59 09/09/18 02:53 Tamsulosin HCl (Flomax) 0.4 mg BID ORAL 09/05/18 18:00 10/04/18 21:59 09/09/18 08:13 Viktor Miranda MD Sep 09, 2018 13:12
--- NOTE | 2018-09-09 13:57 | NUR ---
NURSE NOTES: Report given to AARON Valencia @ [facility].
[2018-09-09] MEDS ORDERED: Tubing Blood Filter IV ONE (14:24)
[2018-09-09] MEDS ORDERED: NS 275ml ONE (14:24)
[2018-09-09] MEDS ORDERED: Tubing IV Secondary IV ONE (14:24)
--- NOTE | 2018-09-09 14:25 | NUR ---
NURSE NOTES: Patient left with web page designer via gurney, Patient's all belongings given to the EMT. Patient is in stable condition.
--- NOTE | 2018-09-09 23:03 | General Progress Note ---
Assessment/Plan Assessment/Plan Assessment and Recs: # Anemia of chronic disease (or of iron deficiency) due to underlying chronic medical issues, multifactorial --> Anemia workup has been ordered --> No evidence of hemolysis is noted, peripheral smear has been reviewed. --> Hgb goal >7. Transfuse prn. --> Epogen or iron at this time is not particularly indicated --> Medications have been reviewed # Leukocytosis. Likely related to underlying infection versus reactive process. --> have reviewed peripheral smear and bandemia/neutrophilia noted (this is not always the case so make sure neutrophils are >75% of the total wbc) --> continue antibiotics if they have been started by ID team --> monitor for resolution --> if the wbc count has improved then say improved in the first line --> on abx as per id # UTi with sepsis --> management as per id. --> CT of abdomen pelvis without contrast read by radiology showed bladder thickening and possible cystitis.Patient was started on IV fluids. Patient was given IV antibiotics Dr. Aliyah Degroot was contacted for inpatient management ==> as per id recs # MISAEL on ckd --> as per renal team # DM nephropathy # BPH # Hypokalemia --> replete with k as needed The timing of this note does not necessarily reflect the time of the patient was seen. Greatly appreciate consultation! Subjective Constitutional: Denies: no symptoms, chills, diaphoresis, fever, malaise, weakness, other HEENT: Denies: no symptoms, eye pain, blurred vision, tearing, double vision, ear pain, ear discharge, nose pain, nose congestion, throat pain, throat swelling, mouth pain, mouth swelling, other Cardiovascular: Denies: no symptoms, chest pain, edema, irregular heart rate, lightheadedness, palpitations, syncope, other Respiratory: Denies: no symptoms, cough, orthopnea, shortness of breath, SOB with excertion, SOB at rest, sputum, stridor, wheezing, other Gastrointestinal/Abdominal: Denies: no symptoms, abdomen distended, abdominal pain, black stools, tarry stools, blood in stool, constipated, diarrhea, difficulty swallowing, nausea, poor appetite, poor fluid intake, rectal bleeding , vomiting, other Genitourinary: Denies: no symptoms, burning, discharge, frequency, flank pain, hematuria, incontinence, pain, urgency, other Neurologic/Psychiatric: Denies: no symptoms, anxiety, depressed, emotional problems, headache, numbness, paresthesia, pre-existing deficit, seizure, tingling, tremors, weakness, other Endocrine: Denies: no symptoms, excessive sweating, flushing, intolerance to cold, intolerance to heat, increased hunger, increased thirst, increased urine, unexplained weight gain, unexplained weight loss, other Hematologic/Lymphatic: Denies: no symptoms, anemia, easy bleeding, easy bruising, other Allergies: Coded Allergies: No Known Allergies (Unverified , 05/27/15) Subjective 09/09: seen by bedside, awake comfortable, no acute distress. wbc trending down, thrombocytopenia resolved plt 264, no events. Objective Last 24 Hour Vital Signs Date Time Temp Pulse Resp B/P (MAP) Pulse Ox O2 Delivery O2 Flow Rate FiO2 09/09/18 12:00 81 09/09/18 12:00 97.7 90 20 175/83 (113) 98 09/09/18 11:17 175/83 09/09/18 09:00 Room Air 09/09/18 08:12 80 148/75 09/09/18 08:00 90 09/09/18 08:00 97.9 80 20 148/75 (99) 99 09/09/18 04:00 86 09/09/18 04:00 98.7 85 20 144/72 (96) 97 09/09/18 00:00 98.5 86 20 155/73 (100) 97 09/09/18 00:00 85 Intake and Output 09/08/18 09/09/18 19:00 07:00 Intake Total 360 ml 955 ml Output Total 650 ml 1100 ml Balance -290 ml -145 ml Intake Oral 360 ml IV Total 955 ml Output Urine Total 650 ml 1100 ml # Voids 1 Laboratory Tests 09/09/18 04:55: White Blood Count 13.3H, Red Blood Count 3.20L, Hemoglobin 9.1L, Hematocrit 28.2L, Mean Corpuscular Volume 88, Mean Corpuscular Hemoglobin 28.4, Mean Corpuscular Hemoglobin Concent 32.2, Red Cell Distribution Width 14.8, Platelet Count 264, Mean Platelet Volume 7.1, Neutrophils (%) (Auto) 71.9, Lymphocytes (% ) (Auto) 13.0L, Monocytes (%) (Auto) 11.5H, Eosinophils (%) (Auto) 2.5, Basophils (%) (Auto) 1.1, Sodium Level 142, Potassium Level 3.8, Chloride Level 108H, Carbon Dioxide Level 25, Anion Gap 9, Blood Urea Nitrogen 27H, Creatinine 2.0H, Estimat Glomerular Filtration Rate , Glucose Level 104, Uric Acid 4.9, Calcium Level 8.0L, Phosphorus Level 3.0, Magnesium Level 1.7L, Total Bilirubin 0.7, Aspartate Amino Transf (AST/SGOT) 31, Alanine Aminotransferase (ALT/SGPT) 35, Alkaline Phosphatase 82, Pro-B-Type Natriuretic Peptide 633H, Total Protein 6.5, Albumin 1.7L, Globulin 4.8, Albumin/Globulin Ratio 0.4L Height (Feet): 5 Height (Inches): 11.00 Weight (Pounds): 197 Objective PE ENT: dry mucus membranes Neck: limited range of motion Respiratory: decreased breath sounds Cardiovascular #1: normal peripheral pulses, regular rate, rhythm Gastrointestinal: normal bowel sounds, soft, tenderness - suprapubic Musculoskeletal: decreased range of motion Neurologic: normal inspection, alert, responsive Psychiatric: normal inspection Skin: normal inspection, normal color Cesar Singh MD Sep 09, 2018 23:03
--- NOTE | 2018-09-11 08:49 | Discharge Summary ---
Discharge Summary Discharge Summary _ DATE OF ADMISSION: 09/04/2018 DATE OF DISCHARGE: 09/09/2018 DISCHARGED BY: Dr. Miller REASON FOR ADMISSION: 88 years old male with past medical history of hypertension, diabetes mellitus, chronic kidney disease, BPH, was sent from the [facility] facility for evaluation due to generalized weakness and vomiting. Patient also noted to be febrile. There was report of nonproductive cough and increased difficulty breathing. Upon evaluation patient was febrile ,tachycardic Laboratory workup revealed leukocytosis with WBC 17, hemoglobin 11.7, hematocrit 35. Urinalysis revealed evidence of UTI. ABG was stable on room air. Stable electrolytes. BUN 32 creatinine 3.1. Glucose 424. Phosphorus 2.1. Stable LFT. Troponin - 0.041. Pro BNP 731. EKG revealed sinus rhythm no acute ischemic changes. Albumin 2.7 Lactic acid 2.0.. Chest x-ray revealed no acute cardiopulmonary pathology. CT of the abdomen and pelvis revealed no definite acute process. Colonic diverticulosis without evidence of diverticulitis. Septic workup initiated in emergency department. Patient was admitted for further management. CONSULTANTS: ID specialist Dr. Varner commercial subcontractor Dr. Mackenzie form presser/oncologist Dr. Singh animal control [facility] Patient admitted to telemetry floor and started on the IV hydration and empiric antibiotic. Renal ultrasound revealed no obstructive nephropathy. Renal parameters and electrolytes were closely monitored, nephrotoxins were avoided, and electrolytes corrected as needed. Patient started on Flomax and continued on Proscar. Prior to discharge creatinine from 3.1 down to 2.0 and BUN from 82 down to 27. All electrolytes were corrected. According to commercial subcontractor, patient had acute renal failure superimposed on chronic kidney disease. Infectious disease specialist followed. Blood culture revealed E. coli ESBL. Urine culture revealed E. coli ESBL. Rapid influenza screen test was negative. Antibiotic regimen optimized as per ID specialist recommendation. Patient will need to complete antibiotic treatment at the facility. Leukocytosis trending down from 17 down to 13.3. Fevers resolved. Floors Buffer followed. Patient initially had evidence of hyperglycemia. Anti-glycemic regimen was optimized as per endocrinology recommendations with long-acting Levemir twice a day, short acting NovoLog pre-meal, Starlix, and sliding scale of insulin as needed. Anti-glycemic regimen was further optimized by animal control specialist during patient stay in the hospital. Hemoglobin A1c -10.7, clearly not at goal. Patient will need further optimization of anti-glycemic regimen as outpatient. Lipid panel revealed low HDL. Antiplatelet therapy with aspirin was continued. Blood pressure was managed with calcium channel bess. DVT and GI prophylaxis provided. Nutritional recommendations implemented and plan of care. Strict aspiration precautions were maintained. Plant Associate followed. Hemoglobin and hematocrit were closely monitored with goal to keep hemoglobin above 7. Anemia workup was consistent with anemia of chronic disease, likely due to underlying chronic medical issue, multifactorial. No evidence of hemolysis noted. Epogen or iron at this time were not particularly indicated. Prior to discharge hemoglobin 9.1, hematocrit 28.2. Next Patient clinically stabilized and was ready for transfer back to [facility] facility for continuation of care. FINAL DIAGNOSES: E. coli ESBL sepsis secondary to UTI E. coli ESBL UTI Acute on chronic renal failure Diabetes mellitus Diabetic nephropathy Proteinuria BPH Anemia of chronic disease Electrolyte imbalances Hypoalbuminemia DISCHARGE MEDICATIONS: List of medication was sent to accepting facility DISCHARGE INSTRUCTIONS: Patient was discharged to the [facility] facility. Follow up with medical doctor at the facility. I have been assigned to dictate discharge summary for this account. I was not involved in the patient's management. Vee Lugo NP Sep 11, 2018 08:49
== END 2018-09-09 14:25 | DRG 872 ==
LOC: EDBD 15:12 → EMR 15:45 → 2E 16:19 → EDBEDREQ 18:49 → 2E 19:21
PROC: 30233N1 Transfusion of Nonautologous Red Blood Cells into Peripheral Vein, Percutaneous Approach (ICD-10-PCS; principal; 2018-09-08)
DX: A41.51 Sepsis due to Escherichia coli [E. coli] (principal); N39.0 Urinary tract infection, site not specified; N17.9 Acute kidney failure, unspecified; F03.90 Unspecified dementia, unspecified severity, without behavioral disturbance, psychotic disturbance, mood disturbance, and anxiety; Z16.12 Extended spectrum beta lactamase (ESBL) resistance; E11.22 Type 2 diabetes mellitus with diabetic chronic kidney disease; N18.9 Chronic kidney disease, unspecified; N40.0 Benign prostatic hyperplasia without lower urinary tract symptoms; D63.8 Anemia in other chronic diseases classified elsewhere; E88.09 Other disorders of plasma-protein metabolism, not elsewhere classified; I12.9 Hypertensive chronic kidney disease with stage 1 through stage 4 chronic kidney disease, or unspecified chronic kidney disease; E87.6 Hypokalemia
CPT/HCPCS: 36415; 36600; 71045; 74176; 76770; 80053; 80061; 81003; 82550; 82553; 82607; 82728; 82746; 82803; 82962; 82977; 83036; 83525; 83540; 83550; 83605; 83690; 83735; 83880; 84100; 84300; 84443; 84484; 84550; 85007; 85025; 86140; 86710; 86850; 86900; 86901; 86920; 87040; 87081; 87086; 87181; 89050; 93005; 96360; 99285; J1815; S5561

== ENCOUNTER 2018-10-05 09:56 | Inpatient (IN) | payer MEDICARE ==
[~2018-10-05] VITALS: Ht 190.5 cm; Wt 86.7 kg
[2018-10-05 10:16] VITALS: BP 152/68
[2018-10-05 10:36] VITALS: BP 159/62
[2018-10-05] MEDS ORDERED: LET 3ml Soln TOPIC ONE (10:45)
[2018-10-05] MEDS ORDERED: Vancomycin 750 MG in NS 275 ML IVPB ONE (10:45)
[2018-10-05 11:26] LABS: APPEARANCE,URINE SLIGHTLY CLOUDY; BILIRUBIN, URINE NEGATIVE (NEGATIVE); COLOR,URINE PALE YELLOW; GLUCOSE, URINE (UA) 4+ (NEGATIVE); KETONES,URINE NEGATIVE (NEGATIVE); LEUKOCYTE ESTERASE ,URINE 3+ (NEGATIVE); NITRITE,URINE POSITIVE (NEGATIVE); PH,URINE 7 (4.5-8.0); PROTEIN,URINE 3+ (NEGATIVE); UROBILINOGEN,URINE NORMAL MG/DL (0.0-1.0)
[2018-10-05 11:39] LABS: ANION GAP 10 mmol/L (5-15); BLOOD UREA NITROGEN 14 mg/dL (7-18); CALCIUM 8.9 MG/DL (8.5-10.1); CARBON DIOXIDE 27 MMOL/L (21-32); CHLORIDE 102 MMOL/L (98-107); CREATININE 1.9 MG/DL (0.55-1.30); POTASSIUM 3.7 MMOL/L (3.5-5.1); SODIUM 139 MMOL/L (136-145)
[2018-10-05 11:52] LABS: ALANINE AMINOTRANSFERASE 16 U/L (12-78); ALBUMIN 2.9 G/DL (3.4-5.0); ALBUMIN/GLOBULIN RATIO 0.6 (1.0-2.7); ALKALINE PHOSPHATASE 98 U/L (46-116); ASPARTATE AMINO TRANSFERASE 11 U/L (15-37); BILIRUBIN,TOTAL 0.3 MG/DL (0.2-1.0); CREATINE KINASE 108 U/L (26-308)
[2018-10-05 11:55] LABS: BASOPHILS % (AUTO) 0.6 % (0.0-2.0); EOSINOPHILS % (AUTO) 1.7 % (0.0-3.0); HEMATOCRIT 31.4 % (42.0-52.0); HEMOGLOBIN 10.4 G/DL (14.2-18.0); LYMPHOCYTES % (AUTO) 19.1 % (20.0-45.0); MEAN CORPUSCULAR VOLUME 88 FL (80-99); MONOCYTES % (AUTO) 10.1 % (1.0-10.0); NEUTROPHILS % (AUTO) 68.5 % (45.0-75.0); PLATELET COUNT 196 K/UL (150-450); RED BLOOD COUNT 3.58 M/UL (4.70-6.10); RED CELL DISTRIBUTION WIDTH 14.6 % (11.6-14.8)
[2018-10-05 11:59] VITALS: BP 159/56
--- NOTE | 2018-10-05 12:28 | Emergency Room Report ---
History of Present Illness General Chief Complaint: Skin Rash/Abscess Source: Patient Present Illness HPI Patient has swelling by his right eye. It's painful. He denies any fevers or chills. He says his been developing over the last 2 days. He states that it he 's had this in the past but it's never been this severe. No change in vision. H/O glaucoma Apparently, he had the same problem in the past and was supposed to follow up with the news videographer for correction of tear duct problem as outpatient which did not happen. Patient denies chest pain, cough, NVD, dysuria, joint pain, headache, dyspnea. -- questionable historian. Patient discharged 09/09: E. coli ESBL sepsis secondary to UTI E. coli ESBL UTI Acute on chronic renal failure Diabetes mellitus Diabetic nephropathy Proteinuria BPH Anemia of chronic disease Electrolyte imbalances Hypoalbuminemia Allergies: Coded Allergies: No Known Allergies (Unverified , 05/27/15) Patient History Limited by: medical condition Past Medical History: see triage record, old chart reviewed Past Surgical History: other - cataracts Social History: Denies: smoking Social History Narrative SNF Reviewed Nursing Documentation: PMH: Agreed; PSxH: Agreed Nursing Documentation-PMH Hx Cardiac Problems: Yes Hx Hypertension: Yes Hx Diabetes: Yes Hx Cancer: No Hx Gastrointestinal Problems: No Hx Dialysis: No - Chronic Kidney Disease, UTI Hx Neurological Problems: No Review of Systems All Other Systems: limited Physical Exam Vital Signs Date Time Temp Pulse Resp B/P (MAP) Pulse Ox O2 Delivery O2 Flow Rate FiO2 10/05/18 10:00 98.1 80 18 152/68 98 Room Air General Appearance: no apparent distress, Chronically Ill Head: normocephalic, atraumatic Eyes: right eye other - abscess R medial eye; bilateral eye PERRL ENT: moist mucus membranes Neck: supple Respiratory: chest non-tender, lungs clear, normal breath sounds Cardiovascular #1: regular rate, rhythm Cardiovascular #2: 2+ radial (R) Gastrointestinal: normal bowel sounds, non tender, soft, non-distended Genitourinary: no CVA tenderness Musculoskeletal: back normal Neurologic: motor strength/tone normal, sensory intact, oriented - X2 Psychiatric: depressed affect Skin: normal color, other - abscess as above Procedures Incision and Drainage Incision and Drainage : Consent: Verbal Site: R medial eye Blade Size: started draining on own I & D Procedure: betadine prep, sterile drapes applied, sterile dressing applied, gauze wick placed Wound Location: face Wound's Depth, Shape: superficial Wound Length (cm): 0 - 0.5 Wound Explored: contaminated Irrigated w/ Saline (ccs): 5 Anesthesia: other - LET Splint Applied?: No Patient Tolerated: Well Complications: None Medical Decision Making Diagnostic Impression: Primary Impression: Abscess of periorbital region Qualified Codes: H05.011 - Cellulitis of right orbit Additional Impressions: UTI (urinary tract infection) Qualified Codes: N39.0 - Urinary tract infection, site not specified Renal insufficiency ER Course Patient with abscess R eye. DDx: tear duct anomaly, MRSA amongst others. Evaluation with EKG, labs. Treatment with gentle IV hydration. EKG no injury. Labs with normal WBC. Elevated BUN/creat. Glucose elevated. Pyuria. Vancomycin ordered due to central facial area of abscess. Drained abscess with packing placed. Tolerated well. Culture sent. Rocephin ordered for UTI. Admit med, Dr. Miller. Discussed with Dr. Beltre (optho) who states unable to see until Sunday. Also that patient needs to come to his office for outpatient procedure. This was communicated with Dr. Miller. Laboratory Tests Test 10/05/18 10:45 10/05/18 11:40 Urine Color Pale yellow Urine Appearance Slightly cloudy Urine pH 7 (4.5-8.0) Urine Specific [place] 1.010 (1.005-1.035) Urine Protein 3+ (NEGATIVE) H Urine Glucose (UA) 4+ (NEGATIVE) H Urine Ketones Negative (NEGATIVE) Urine Blood 2+ (NEGATIVE) H Urine Nitrite Positive (NEGATIVE) H Urine Bilirubin Negative (NEGATIVE) Urine Urobilinogen Normal MG/DL (0.0-1.0) Urine Leukocyte Esterase 3+ (NEGATIVE) H Urine RBC 2-4 /HPF (0 - 0) H Urine WBC 40-60 /HPF (0 - 0) H Urine Squamous Epithelial Cells Occasional /LPF Urine Bacteria Moderate /HPF (NONE) H Sodium Level 139 MMOL/L (136-145) Potassium Level 3.7 MMOL/L (3.5-5.1) Chloride Level 102 MMOL/L (98-107) Carbon Dioxide Level 27 MMOL/L (21-32) Anion Gap 10 mmol/L (5-15) Blood Urea Nitrogen 14 mg/dL (7-18) Creatinine 1.9 MG/DL (0.55-1.30) H Estimate Glomerular Filtration Rate mL/min (>60) Glucose Level 289 MG/DL (74-106) H Lactic Acid Level 1.80 mmol/L (0.4-2.0) Calcium Level 8.9 MG/DL (8.5-10.1) Total Bilirubin 0.3 MG/DL (0.2-1.0) Aspartate Amino Transferase (AST) 11 U/L (15-37) L Alanine Aminotransferase (ALT) 16 U/L (12-78) Alkaline Phosphatase 98 U/L (46-116) Total Creatine Kinase 108 U/L (26-308) Troponin I 0.008 ng/mL (0.000-0.056) Pro-B-Type Natriuretic Peptide 264 pg/mL (0-125) H Total Protein 8.0 G/DL (6.4-8.2) Albumin 2.9 G/DL (3.4-5.0) L Globulin 5.1 g/dL Albumin/Globulin Ratio 0.6 (1.0-2.7) L White Blood Count 8.0 K/UL (4.8-10.8) Red Blood Count 3.58 M/UL (4.70-6.10) L Hemoglobin 10.4 G/DL (14.2-18.0) L Hematocrit 31.4 % (42.0-52.0) L Mean Corpuscular Volume 88 FL (80-99) Mean Corpuscular Hemoglobin 29.1 PG (27.0-31.0) Mean Corpuscular Hemoglobin Concent 33.3 G/DL (32.0-36.0) Red Cell Distribution Width 14.6 % (11.6-14.8) Platelet Count 196 K/UL (150-450) Mean Platelet Volume 8.3 FL (6.5-10.1) Neutrophils (%) (Auto) 68.5 % (45.0-75.0) Lymphocytes (%) (Auto) 19.1 % (20.0-45.0) L Monocytes (%) (Auto) 10.1 % (1.0-10.0) H Eosinophils (%) (Auto) 1.7 % (0.0-3.0) Basophils (%) (Auto) 0.6 % (0.0-2.0) Prothrombin Time 10.6 SEC (9.30-11.50) Prothrombin Time INR 1.0 (0.9-1.1) PTT 29 SEC (23-33) EKG Diagnostic Results Rate: normal Rhythm: NSR ST Segments: no acute changes Rhythm Strip Diag. Results EP Interpretation: yes Rhythm: NSR, no PVC's, no ectopy Last Vital Signs Date Time Temp Pulse Resp B/P (MAP) Pulse Ox O2 Delivery O2 Flow Rate FiO2 10/05/18 19:02 98.1 71 19 159/56 (90) 100 10/05/18 14:22 Room Air Status: improved Disposition: ADMITTED INPATIENT Condition: Serious Referrals: Aliyah Miller MD (PCP) Roni Jarrell MD Oct 05, 2018 12:28
[2018-10-05] MEDS ORDERED: Tetanus/Diptheria/Pertussis Vaccine 0.5ml Syr IM ONE (12:45)
[2018-10-05] MEDS ORDERED: cefTRIAXone 1 GM in D5W 55 ML IVPB ONE (13:00)
[2018-10-05] MEDS ORDERED: Morphine Sulfate 2mg/ml Inj(IV/IM USE ONLY) IVP PRN (14:30)
[2018-10-05] MEDS ORDERED: LORazepam 1mg tab ORAL PRN (14:30)
[2018-10-05] MEDS ORDERED: Albuterol/Ipratropium 3ml neb HHN SCH (14:30)
[2018-10-05] MEDS ORDERED: Zolpidem 5mg tab ORAL PRN (14:30)
[2018-10-05] MEDS ORDERED: Albuterol/Ipratropium 3ml neb HHN PRN (15:30)
[2018-10-05 16:00] VITALS: BP 153/71
[2018-10-05] MEDS: NovoLOG Insulin Flexpen SUBQ SCH ×2 (16:30→20:51)
[2018-10-05] MEDS: Insulin NPH SUBQ SCH (16:30)
[2018-10-05] MEDS ORDERED: NovoLOG Insulin Flexpen SUBQ SCH ×2 (16:30)
[2018-10-05] MEDS: Enoxaparin 30mg Inj SUBQ SCH (16:47)
--- NOTE | 2018-10-05 17:29 | Consultation ---
Consult Note Consult Note asked to eval for renal failure Known to me from his previous admission admitted for periorbital Cellulitis and UTI Patient has less swelling by his right eye. It's painful. He denies any fevers or chills. He says his been developing over the last 2 days. He states that it he's had this in the past but it's never been this severe. Apparently, he had the same problem in the past and was supposed to follow up with the opthalmologist for correction of tear duct problem as outpatient which did not happen. No Known Allergies (Unverified , 05/27/15) Hx Cardiac Problems: Yes Hx Hypertension: Yes Hx Diabetes: Yes Hx Dialysis: No - Chronic Kidney Disease, UTI interviewed examined data reviewed Assessment/Plan (1) Acute on chronic renal failure (2) Diabetic nephropathy (3) Anemia (4) BPH (benign prostatic hyperplasia) (5) UTI (urinary tract infection) Plan flomax IV hydrate Antibiotics per ID reviewe 2D echo / SERGIO done previously monitor renal parameters and H7h Rodrigue Mackenzie MD Oct 05, 2018 17:29
[2018-10-05 19:02] VITALS: BP 159/56
[2018-10-05 19:43] LABS: FERRITIN 124 NG/ML (8-388); LACTATE DEHYDROGENASE 129 U/L (81-234)
[2018-10-05 19:55] LABS: % IRON SATURATION 8 % (15-50); IRON 14 ug/dL (50-175); TOTAL IRON BINDING CAPACITY 177 ug/dL (250-450)
[2018-10-05] MEDS ORDERED: Vancomycin 750mg/NS 275ml IVPB ONE ×2 (21:00)
[2018-10-05] MEDS: Docusate 100mg cap ORAL SCH (21:04)
[2018-10-05] MEDS: Cefepime HCl 1 GM in D5W 55 ML IVPB SCH (21:05)
[2018-10-05 21:39] VITALS: BP 127/70
[2018-10-06] VITALS: BP 158/66
--- NOTE | 2018-10-06 01:15 | History and Physical Report ---
DATE OF ADMISSION: 10/05/2018 HISTORY OF PRESENT ILLNESS: Came in because of right-sided facial abscess. The patient had a problem in that area in the past. He also has been admitted for urinary tract infection. The patient had I and D of the right facial abscess by Dr. Chiang ____, emergency room physician. The patient has dementia. He is a poor historian. Denies nausea, vomiting, or diarrhea. Does have pain around the debridement site. Denies shortness of breath. Denies cough. Denies fever or chills. Denies history of dysuria. PAST MEDICAL HISTORY: Urinary retention, organic brain syndrome, BPH, hypertension, NIDDM, depression, and gastroesophageal reflux disease. PAST SURGICAL HISTORY: Denies. MEDICATIONS: , Proscar, hydralazine, Levemir, mirtazapine, Starlix, omeprazole, and Flomax. ALLERGIES: No known allergies. FAMILY HISTORY: Noncontributory. SOCIAL HISTORY: Denies history of smoking, alcohol, or illicit drugs. Comes from assisted living. REVIEW OF SYSTEMS: HEENT: Denies headaches. RESPIRATORY: Does have right facial pain. CHEST: Denies shortness of breath. Denies cough. CARDIOVASCULAR: Denies chest pain. GASTROINTESTINAL: Denies nausea, vomiting, or diarrhea. EXTREMITY: Denies pain. 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 PHYSICAL EXAMINATION: VITAL SIGNS: Temperature is 98.1, pulse is 70, and blood pressure 159/63. HEENT: PERRLA. NECK: Supple. The patient has an I and D of the right facial abscess and has also overgrowth of tissue in the right eye. CHEST: Clear to auscultation CARDIOVASCULAR: Regular rate and rhythm. No murmurs or extra sounds. GASTROINTESTINAL: Soft, nontender, and nondistended. No organomegaly. EXTREMITIES: No edema. Moves all four extremities. Sensory is intact to light touch. Reflexes are equal in both sides. LABORATORY DATA: WBC of 8, hemoglobin 10.4, and platelets 196,000. Sodium 139, potassium 3.7, BUN of 14, creatinine 1.9, and glucose of 289. ASSESSMENT AND PLAN: 1. Status post incision and drainage of the right facial abscess. Antibiotics per Dr. Viktor Miranda. 2. For azotemia, Dr. Mackenzie has been consulted. 3. For blood sugar control, Dr. Stuart will be consulted. Aliyah Miller M.D. DR: LOR JOB#: [id number] CC:
[2018-10-06 04:00] VITALS: BP 159/71
[2018-10-06 05:07] LABS: BASOPHILS % (AUTO) 0.7 % (0.0-2.0); EOSINOPHILS % (AUTO) 2.8 % (0.0-3.0); HEMATOCRIT 31.7 % (42.0-52.0); HEMOGLOBIN 10.3 G/DL (14.2-18.0); LYMPHOCYTES % (AUTO) 20.9 % (20.0-45.0); MEAN CORPUSCULAR VOLUME 88 FL (80-99); MONOCYTES % (AUTO) 11.4 % (1.0-10.0); NEUTROPHILS % (AUTO) 64.2 % (45.0-75.0); PLATELET COUNT 168 K/UL (150-450); RED BLOOD COUNT 3.61 M/UL (4.70-6.10); RED CELL DISTRIBUTION WIDTH 14.3 % (11.6-14.8); WHITE BLOOD COUNT 6.9 K/UL (4.8-10.8)
[2018-10-06] MEDS: NovoLOG Insulin Flexpen SUBQ SCH ×4 (05:39→21:00)
[2018-10-06 05:43] LABS: ANION GAP 8 mmol/L (5-15); BLOOD UREA NITROGEN 13 mg/dL (7-18); CALCIUM 8.5 MG/DL (8.5-10.1); CARBON DIOXIDE 28 MMOL/L (21-32); CHLORIDE 108 MMOL/L (98-107); CREATININE 1.7 MG/DL (0.55-1.30); POTASSIUM 3.5 MMOL/L (3.5-5.1); SODIUM 144 MMOL/L (136-145)
[2018-10-06] MEDS: Insulin NPH SUBQ SCH ×2 (05:51→16:51)
--- NOTE | 2018-10-06 07:20 | General Progress Note ---
Assessment/Plan Problem List: (1) Mastoiditis of right side ICD Codes: H70.91 - Unspecified mastoiditis, right ear SNOMED: 80615955 (2) Hypertension ICD Codes: I10 - Essential (primary) hypertension SNOMED: 44528623 (3) UTI (urinary tract infection) ICD Codes: N39.0 - Urinary tract infection, site not specified SNOMED: 11454493 Qualifiers: Qualified Codes: N39.0 - Urinary tract infection, site not specified (4) Diabetes ICD Codes: E11.9 - Type 2 diabetes mellitus without complications SNOMED: 32172770 Assessment/Plan continue NPH 4 units bid continue NISS ac / hs further adjustment according to glucose values Subjective Allergies: Coded Allergies: No Known Allergies (Unverified , 05/27/15) All Systems: reviewed and negative except above Subjective events noted known to me from previous admission admitted with UTI and orbital cellulitis diabetes was managed with: Levemir 10 units bid + Novolog 6 units ac tid + Starlix 120 mg ac tid currently seems to need less insulin and being treated with NPH 4 bid Item Value Date Time Bedside Blood Glucose 106 mg/dl 10/06/18 0630 Bedside Blood Glucose 88 mg/dl 10/05/18 2100 Bedside Blood Glucose 90 mg/dl 10/05/18 1630 Objective Last 24 Hour Vital Signs Date Time Temp Pulse Resp B/P (MAP) Pulse Ox O2 Delivery O2 Flow Rate FiO2 10/06/18 04:00 98.7 78 18 159/71 (100) 98 10/06/18 00:00 99.5 77 18 158/66 (96) 96 10/05/18 21:39 99.2 77 18 127/70 (89) 99 10/05/18 21:00 Room Air 10/05/18 19:02 98.1 71 19 159/56 (90) 100 10/05/18 16:00 97.6 74 19 153/71 (98) 99 10/05/18 14:22 Room Air 10/05/18 13:23 98.1 71 19 159/56 100 Room Air 10/05/18 11:59 71 19 159/56 100 Room Air 10/05/18 11:20 98.1 10/05/18 10:36 70 17 159/62 100 Room Air 10/05/18 10:16 98.1 18 152/68 98 Room Air 10/05/18 10:00 98.1 80 18 152/68 98 Room Air Intake and Output 10/05/18 10/06/18 19:00 07:00 Intake Total 1620 ml 295 ml Balance 1620 ml 295 ml Intake Oral 120 ml 240 ml IV Total 1500 ml 55 ml # Voids 1 1 Laboratory Tests 10/05/18 10:45: Urine Color Pale yellow, Urine Appearance Slightly cloudy, Urine pH 7, Urine Specific [place] 1.010, Urine Protein 3+H, Urine Glucose (UA) 4+H, Urine Ketones Negative, Urine Blood 2+H, Urine Nitrite PositiveH, Urine Bilirubin Negative, Urine Urobilinogen Normal, Urine Leukocyte Esterase 3+H, Urine RBC 2- 4H, Urine WBC 40-60H, Urine Squamous Epithelial Cells Occasional, Urine Bacteria ModerateH, Sodium Level 139, Potassium Level 3.7, Chloride Level 102, Carbon Dioxide Level 27, Anion Gap 10, Blood Urea Nitrogen 14, Creatinine 1.9H, Estimat Glomerular Filtration Rate , Glucose Level 289H, Lactic Acid Level 1.80 , Calcium Level 8.9, Total Bilirubin 0.3, Aspartate Amino Transf (AST/SGOT) 11L , Alanine Aminotransferase (ALT/SGPT) 16, Alkaline Phosphatase 98, Total Creatine Kinase 108, Troponin I 0.008, Pro-B-Type Natriuretic Peptide 264H, Total Protein 8.0, Albumin 2.9L, Globulin 5.1, Albumin/Globulin Ratio 0.6L 10/05/18 11:40: White Blood Count 8.0, Red Blood Count 3.58L, Hemoglobin 10.4L, Hematocrit 31.4L , Mean Corpuscular Volume 88, Mean Corpuscular Hemoglobin 29.1, Mean Corpuscular Hemoglobin Concent 33.3, Red Cell Distribution Width 14.6, Platelet Count 196, Mean Platelet Volume 8.3, Neutrophils (%) (Auto) 68.5, Lymphocytes (% ) (Auto) 19.1L, Monocytes (%) (Auto) 10.1H, Eosinophils (%) (Auto) 1.7, Basophils (%) (Auto) 0.6, Differential Total Cells Counted 100, Neutrophils % ( Manual) 65, Lymphocytes % (Manual) 21, Monocytes % (Manual) 12H, Eosinophils % ( Manual) 2, Basophils % (Manual) 0, Band Neutrophils 0, Platelet Estimate Adequate, Platelet Morphology Normal, Hypochromasia 1+, Anisocytosis 1+, Reticulocyte Count 0.6, Prothrombin Time 10.6, Prothromb Time International Ratio 1.0, Activated Partial Thromboplast Time 29, Hemoglobin A1c 8.8H 10/05/18 18:30: Albumin/Globulin Ratio [Pending], Fibrinogen 558H, Iron Level 14L, Total Iron Binding Capacity 177L, Percent Iron Saturation 8L, Unsaturated Iron Binding 163 , Ferritin 124, Lactate Dehydrogenase 129, Total Protein (PEP) [Pending], Albumin (PEP) [Pending], Globulin (PEP) [Pending], Xgpsw-6-Osvpwkiyc [Pending], Tfpzc-6-Bzbvpkvgj [Pending], Beta Globulins [Pending], Beta Gamma Globulin [ Pending], PEP Abnormal Protein Bands [Pending], Protein Electrophoresis Interpret [Pending], Vitamin B12 Level 487, Folate 10.8, Thyroid Stimulating Hormone (TSH) 1.149, Hepatitis A IgM Antibody [Pending], Hepatitis B Surface Antigen [Pending], Hepatitis B Core IgM Antibody [Pending], Hepatitis C Antibody [Pending], HIV (1&2) Antibody Rapid Negative 10/06/18 04:55: Sodium Level 144, Potassium Level 3.5, Chloride Level 108H, Carbon Dioxide Level 28, Anion Gap 8, Blood Urea Nitrogen 13, Creatinine 1.7H, Estimat Glomerular Filtration Rate , Glucose Level 105#, Calcium Level 8.5, White Blood Count 6.9, Red Blood Count 3.61L, Hemoglobin 10.3L, Hematocrit 31.7L, Mean Corpuscular Volume 88, Mean Corpuscular Hemoglobin 28.5, Mean Corpuscular Hemoglobin Concent 32.4, Red Cell Distribution Width 14.3, Platelet Count 168, Mean Platelet Volume 7.1, Neutrophils (%) (Auto) 64.2, Lymphocytes (%) (Auto) 20.9, Monocytes (%) (Auto) 11.4H, Eosinophils (%) (Auto) 2.8, Basophils (%) ( Auto) 0.7, Prothrombin Time 10.7, Prothromb Time International Ratio 1.0 Height (Feet): 6 Height (Inches): 3.00 Weight (Pounds): 190 General Appearance: no apparent distress Neck: normal alignment Cardiovascular: regular rhythm Respiratory/Chest: lungs clear Abdomen: normal bowel sounds Pelvis: normal external exam Objective Current Medications Medications (Trade) Dose Ordered Sig/Mayank Route PRN Reason Start Time Stop Time Status Last Admin Dose Admin Acetaminophen (Tylenol) 650 mg Q4H PRN ORAL Mild Pain (Pain Scale 1-3) 10/05/18 14:30 11/04/18 14:29 Albuterol/ Ipratropium (Albuterol/ Ipratropium) 3 ml Q6H PRN HHN Shortness of Breath 10/05/18 15:30 10/10/18 15:29 Cefepime HCl 1 gm/ Dextrose 55 ml @ 110 mls/hr Q24H IVPB 10/05/18 20:00 10/12/18 19:59 10/05/18 21:05 Dextrose (Dextrose 50%) 25 ml Q30M PRN IV Hypoglycemia 10/05/18 14:30 11/04/18 14:29 Dextrose (Dextrose 50%) 50 ml Q30M PRN IV Hypoglycemia 10/05/18 14:30 11/04/18 14:29 Diphenhydramine HCl (Benadryl) 25 mg Q6H PRN ORAL Itching/Pruritis 10/05/18 14:30 11/04/18 14:29 Docusate Sodium (Colace) 100 mg EVERY 12 HOURS ORAL 10/05/18 21:00 11/04/18 20:59 10/05/18 21:04 Enoxaparin Sodium (Lovenox) 30 mg Q24H SUBQ 10/05/18 16:00 11/04/18 15:59 10/05/18 16:47 Famotidine (Pepcid) 40 mg DAILY ORAL 10/06/18 09:00 11/05/18 08:59 Insulin Aspart (NovoLOG) BEFORE MEALS AND HS SUBQ 10/05/18 16:30 11/04/18 16:29 Insulin Human NPH (Humulin N) 4 units PRE BFAST AND DINNER SUBQ 10/05/18 16:30 11/04/18 16:29 10/06/18 05:51 Lorazepam (Ativan) 1 mg Q4H PRN ORAL For Anxiety 10/05/18 14:30 10/12/18 14:29 Morphine Sulfate (Morphine Sulfate) 2 mg Q6H PRN IVP Moderate Pain (Pain Scale 4-6) 10/05/18 14:30 10/12/18 14:29 Ondansetron HCl (Zofran) 4 mg Q6H PRN IVP Nausea & Vomiting 10/05/18 14:30 11/04/18 14:29 Vancomycin HCl (Vanco rx to dose) 1 ea DAILY PRN MISC Per rx protocol 10/05/18 18:00 11/04/18 17:59 Zolpidem Tartrate (Ambien) 5 mg HSPRN PRN ORAL Insomnia 10/05/18 14:30 10/12/18 14:29 Pj Stuart MD Oct 06, 2018 07:20
[2018-10-06 08:00] VITALS: BP 149/55
[2018-10-06] MEDS: Docusate 100mg cap ORAL SCH ×2 (08:03→17:05)
[2018-10-06 12:00] VITALS: BP 156/63
[2018-10-06] MEDS ORDERED: Tubing IV Secondary IV ONE (15:13)
--- NOTE | 2018-10-06 15:31 | General Progress Note ---
Assessment/Plan Problem List: (1) BPH (benign prostatic hyperplasia) ICD Codes: N40.0 - Benign prostatic hyperplasia without lower urinary tract symptoms SNOMED: 475939640 (2) Facial abscess ICD Codes: L02.01 - Cutaneous abscess of face SNOMED: 051654089 (3) Renal insufficiency ICD Codes: N28.9 - Disorder of kidney and ureter, unspecified SNOMED: 530342207, 700269805 (4) Hypertension ICD Codes: I10 - Essential (primary) hypertension SNOMED: 63018105 Status: progressing Assessment/Plan s/p i&d of facial abscess by er dr meléndez per id bph facial celluitis and abscess improving Subjective ROS Limited/Unobtainable: Yes Allergies: Coded Allergies: No Known Allergies (Unverified , 05/27/15) Objective Last 24 Hour Vital Signs Date Time Temp Pulse Resp B/P (MAP) Pulse Ox O2 Delivery O2 Flow Rate FiO2 10/06/18 12:00 98.1 70 16 156/63 (94) 98 10/06/18 09:00 Room Air 10/06/18 08:00 97.8 76 20 149/55 (86) 98 10/06/18 04:00 98.7 78 18 159/71 (100) 98 10/06/18 00:00 99.5 77 18 158/66 (96) 96 10/05/18 21:39 99.2 77 18 127/70 (89) 99 10/05/18 21:00 Room Air 10/05/18 19:02 98.1 71 19 159/56 (90) 100 10/05/18 16:00 97.6 74 19 153/71 (98) 99 Intake and Output 10/05/18 10/06/18 19:00 07:00 Intake Total 1620 ml 295 ml Balance 1620 ml 295 ml Intake Oral 120 ml 240 ml IV Total 1500 ml 55 ml # Voids 1 1 Laboratory Tests 10/05/18 18:30: Fibrinogen 558H, Iron Level 14L, Total Iron Binding Capacity 177L, Percent Iron Saturation 8L, Unsaturated Iron Binding 163, Ferritin 124, Lactate Dehydrogenase 129, Total Protein (PEP) [Pending], Albumin (PEP) [Pending], Globulin (PEP) [Pending], Albumin/Globulin Ratio [Pending], Wplnx-7-Whqvyizty [ Pending], Boxch-4-Dbkeswanv [Pending], Beta Globulins [Pending], Beta Gamma Globulin [Pending], PEP Abnormal Protein Bands [Pending], Protein Electrophoresis Interpret [Pending], Vitamin B12 Level 487, Folate 10.8, Thyroid Stimulating Hormone (TSH) 1.149, Hepatitis A IgM Antibody [Pending], Hepatitis B Surface Antigen [Pending], Hepatitis B Core IgM Antibody [Pending], Hepatitis C Antibody [Pending], HIV (1&2) Antibody Rapid Negative 10/06/18 04:55: White Blood Count 6.9, Red Blood Count 3.61L, Hemoglobin 10.3L, Hematocrit 31.7L , Mean Corpuscular Volume 88, Mean Corpuscular Hemoglobin 28.5, Mean Corpuscular Hemoglobin Concent 32.4, Red Cell Distribution Width 14.3, Platelet Count 168, Mean Platelet Volume 7.1, Neutrophils (%) (Auto) 64.2, Lymphocytes (% ) (Auto) 20.9, Monocytes (%) (Auto) 11.4H, Eosinophils (%) (Auto) 2.8, Basophils (%) (Auto) 0.7, Prothrombin Time 10.7, Prothromb Time International Ratio 1.0, Sodium Level 144, Potassium Level 3.5, Chloride Level 108H, Carbon Dioxide Level 28, Anion Gap 8, Blood Urea Nitrogen 13, Creatinine 1.7H, Estimat Glomerular Filtration Rate , Glucose Level 105#, Calcium Level 8.5 Height (Feet): 6 Height (Inches): 3.00 Weight (Pounds): 190 Cardiovascular: normal rate Respiratory/Chest: lungs clear Abdomen: soft Aliyah Miller MD Oct 06, 2018 15:31
[2018-10-06 16:00] VITALS: BP 158/68
--- NOTE | 2018-10-06 16:18 | Nephrology Progress Note ---
Assessment/Plan Problem List: (1) Hypertension (2) BPH (benign prostatic hyperplasia) (3) Acute on chronic renal failure (4) Anemia (5) UTI (urinary tract infection) Assessment (1) Acute on chronic renal failure (2) Diabetic nephropathy (3) Anemia (4) BPH (benign prostatic hyperplasia) (5) UTI (urinary tract infection) Plan flomax IV hydrate Antibiotics per ID reviewe 2D echo / SERGIO done previously monitor renal parameters and H7h Subjective ROS Limited/Unobtainable: No Constitutional: Reports: malaise Objective Objective Last 24 Hour Vital Signs Date Time Temp Pulse Resp B/P (MAP) Pulse Ox O2 Delivery O2 Flow Rate FiO2 10/06/18 12:00 98.1 70 16 156/63 (94) 98 10/06/18 09:00 Room Air 10/06/18 08:00 97.8 76 20 149/55 (86) 98 10/06/18 04:00 98.7 78 18 159/71 (100) 98 10/06/18 00:00 99.5 77 18 158/66 (96) 96 10/05/18 21:39 99.2 77 18 127/70 (89) 99 10/05/18 21:00 Room Air 10/05/18 19:02 98.1 71 19 159/56 (90) 100 Intake and Output 10/05/18 10/06/18 19:00 07:00 Intake Total 1620 ml 295 ml Balance 1620 ml 295 ml Intake Oral 120 ml 240 ml IV Total 1500 ml 55 ml # Voids 1 1 Laboratory Tests 10/05/18 18:30: Fibrinogen 558H, Iron Level 14L, Total Iron Binding Capacity 177L, Percent Iron Saturation 8L, Unsaturated Iron Binding 163, Ferritin 124, Lactate Dehydrogenase 129, Total Protein (PEP) [Pending], Albumin (PEP) [Pending], Globulin (PEP) [Pending], Albumin/Globulin Ratio [Pending], Pyotz-3-Fhhfkbouu [ Pending], Zfoms-1-Lcfotyjct [Pending], Beta Globulins [Pending], Beta Gamma Globulin [Pending], PEP Abnormal Protein Bands [Pending], Protein Electrophoresis Interpret [Pending], Vitamin B12 Level 487, Folate 10.8, Thyroid Stimulating Hormone (TSH) 1.149, Hepatitis A IgM Antibody [Pending], Hepatitis B Surface Antigen [Pending], Hepatitis B Core IgM Antibody [Pending], Hepatitis C Antibody [Pending], HIV (1&2) Antibody Rapid Negative 10/06/18 04:55: White Blood Count 6.9, Red Blood Count 3.61L, Hemoglobin 10.3L, Hematocrit 31.7L , Mean Corpuscular Volume 88, Mean Corpuscular Hemoglobin 28.5, Mean Corpuscular Hemoglobin Concent 32.4, Red Cell Distribution Width 14.3, Platelet Count 168, Mean Platelet Volume 7.1, Neutrophils (%) (Auto) 64.2, Lymphocytes (% ) (Auto) 20.9, Monocytes (%) (Auto) 11.4H, Eosinophils (%) (Auto) 2.8, Basophils (%) (Auto) 0.7, Prothrombin Time 10.7, Prothromb Time International Ratio 1.0, Sodium Level 144, Potassium Level 3.5, Chloride Level 108H, Carbon Dioxide Level 28, Anion Gap 8, Blood Urea Nitrogen 13, Creatinine 1.7H, Estimat Glomerular Filtration Rate , Glucose Level 105#, Calcium Level 8.5 Height (Feet): 6 Height (Inches): 3.00 Weight (Pounds): 190 General Appearance: no apparent distress Neck: limited range of motion Cardiovascular: normal rate Respiratory/Chest: decreased breath sounds Abdomen: soft Rodrigue Mackenzie MD Oct 06, 2018 16:18
[2018-10-06] MEDS: Enoxaparin 30mg Inj SUBQ SCH (16:34)
[2018-10-06 20:00] VITALS: BP 160/65
[2018-10-06] MEDS ORDERED: HydrALAZINE 50mg tab ORAL SCH (21:00)
[2018-10-06] MEDS: Tamsulosin 0.4mg cap ORAL SCH (21:53)
[2018-10-06] MEDS: HydrALAZINE 50mg tab ORAL SCH (21:54)
[2018-10-06] MEDS: Cefepime HCl 1 GM in D5W 55 ML IVPB SCH (21:55)
--- NOTE | 2018-10-06 22:00 | Consultation ---
DATE OF CONSULTATION: 10/06/2018 INFECTIOUS DISEASE CONSULTATION CONSULTING PHYSICIAN: Viktor Miranda M.D. PRIMARY ATTENDING PHYSICIAN: Aliyah Miller M.D. REASON FOR CONSULT: Orbital cellulitis, dacryocystitis, and UTI. HISTORY OF PRESENT ILLNESS: This is an 88-year-old skilled nursing resident admitted yesterday because of swelling and pain in right eye for two days. The patient was supposed to have Ophthalmology followup for correction of the nonactive lacrimal duct problem. The patient had this problem before, but it was not severe in the past as this time. The patient has also bacteriuria. He was recently admitted in August because of ESBL organism UTI. PAST MEDICAL HISTORY: Significant for hypertension, diabetes mellitus, chronic kidney disease, anemia, prostatic hypertrophy, depression. ALLERGIES: No known drug allergies. MEDICATIONS: Getting amlodipine, hydralazine, Pepcid, Colace, cefepime, vancomycin, insulin, Lovenox, albuterol, DuoNeb inhaler, Tylenol, morphine sulfate, Zofran, Ativan, Ambien and . SOCIAL HISTORY: shelter resident. No history of alcohol, drug abuse, smoking, single, has a son. REVIEW OF SYSTEMS: The patient reports no pain. No coughing. No shortness of breath. No problem passing urine. No nausea. No vomiting. PHYSICAL EXAMINATION: VITAL SIGNS: Temperature 98.1, pulse 70, T-max 99.5, blood pressure 156/62. GENERAL APPEARANCE: No acute distress. HEENT: there is some swelling on right eye inner corner. HEART: Normal rate. LUNGS: Clear. ABDOMEN: Soft, nontender. EXTREMITIES: Has no edema. LABORATORY AND DIAGNOSTIC DATA: WBC 6.3, hemoglobin 10.3, hematocrit 21.7, platelets 168,000. Sodium 144, potassium 3.5, chloride 108, bicarbonate 28, BUN 13, creatinine 1.7. Blood culture from right eye showed Staph aureus, urine culture growing gram-negative rods. IMPRESSION: 1. Orbital cellulitis, likely dacryocystitis. 2. The patient has pyuria. 3. Diabetes mellitus. 4. Hypertension. 5. Chronic kidney disease. 6. Anemia. 7. BPH. RECOMMENDATION: We will continue with vancomycin and cefepime. We will follow up the culture. The patient has Ophthalmology followup at the end of my exam. I thank, Dr. Miller, for involving me in the care of this patient. Viktor Miranda M.D. DR: KACI JOB#: [id number] CC:
[2018-10-06] MEDS: Vancomycin 1.25mg/D5W 275ml IVPB SCH ×2 (22:37)
[2018-10-07] VITALS: BP 161/75
[2018-10-07 04:00] VITALS: BP 161/67
[2018-10-07] MEDS: HydrALAZINE 50mg tab ORAL SCH ×3 (06:27→21:54)
[2018-10-07] MEDS: Insulin NPH SUBQ SCH ×2 (06:29→16:53)
[2018-10-07] MEDS: NovoLOG Insulin Flexpen SUBQ SCH ×6 (06:29→21:00)
--- NOTE | 2018-10-07 06:51 | General Progress Note ---
Assessment/Plan Problem List: (1) Mastoiditis of right side ICD Codes: H70.91 - Unspecified mastoiditis, right ear SNOMED: 75801703 (2) Hypertension ICD Codes: I10 - Essential (primary) hypertension SNOMED: 90096380 (3) UTI (urinary tract infection) ICD Codes: N39.0 - Urinary tract infection, site not specified SNOMED: 79882149 Qualifiers: Qualified Codes: N39.0 - Urinary tract infection, site not specified (4) Diabetes ICD Codes: E11.9 - Type 2 diabetes mellitus without complications SNOMED: 67791750 Assessment/Plan add Novolog 4 units ac itd continue NPH 4 units bid continue NISS ac / hs Subjective Allergies: Coded Allergies: No Known Allergies (Unverified , 05/27/15) All Systems: reviewed and negative except above Subjective events noted Item Value Date Time Bedside Blood Glucose 157 mg/dl H 10/07/18 0629 Bedside Blood Glucose 72 mg/dl 10/06/18 2100 Bedside Blood Glucose 368 mg/dl H 10/06/18 1651 Bedside Blood Glucose 200 mg/dl H 10/06/18 1200 Bedside Blood Glucose 106 mg/dl 10/06/18 0630 Objective Last 24 Hour Vital Signs Date Time Temp Pulse Resp B/P (MAP) Pulse Ox O2 Delivery O2 Flow Rate FiO2 10/07/18 06:27 161/67 10/07/18 04:00 98.9 99 18 161/67 (98) 99 10/07/18 00:00 97.4 73 18 161/75 (103) 98 10/06/18 21:54 160/65 10/06/18 21:53 69 18 Room Air 21 10/06/18 21:00 Room Air 10/06/18 20:00 99.1 72 18 160/65 (96) 97 10/06/18 16:00 97.0 73 18 158/68 (98) 97 10/06/18 12:00 98.1 70 16 156/63 (94) 98 10/06/18 09:00 Room Air 10/06/18 08:00 97.8 76 20 149/55 (86) 98 Intake and Output 10/06/18 10/07/18 19:00 07:00 Intake Total 320 ml Balance 320 ml Intake Oral 320 ml # Voids 3 1 Laboratory Tests 10/06/18 17:35: C-Reactive Protein, Quantitative 5.6H, Random Vancomycin Level 6.7 10/07/18 06:15: White Blood Count [Pending], Red Blood Count [Pending], Hemoglobin [Pending], Hematocrit [Pending], Mean Corpuscular Volume [Pending], Mean Corpuscular Hemoglobin [Pending], Mean Corpuscular Hemoglobin Concent [Pending], Red Cell Distribution Width [Pending], Platelet Count [Pending], Mean Platelet Volume [ Pending], Neutrophils (%) (Auto) [Pending], Lymphocytes (%) (Auto) [Pending], Monocytes (%) (Auto) [Pending], Eosinophils (%) (Auto) [Pending], Basophils (%) (Auto) [Pending], Sodium Level [Pending], Potassium Level [Pending], Chloride Level [Pending], Carbon Dioxide Level [Pending], Blood Urea Nitrogen [Pending], Creatinine [Pending], Estimat Glomerular Filtration Rate [Pending], Glucose Level [Pending], Calcium Level [Pending], Phosphorus Level [Pending], Magnesium Level [Pending], Total Bilirubin [Pending], Aspartate Amino Transf (AST/SGOT) [ Pending], Alanine Aminotransferase (ALT/SGPT) [Pending], Alkaline Phosphatase [ Pending], Pro-B-Type Natriuretic Peptide [Pending], Total Protein [Pending], Albumin [Pending], Globulin [Pending], Triglycerides Level [Pending], Cholesterol Level [Pending], LDL Cholesterol [Pending], HDL Cholesterol [Pending ], Cholesterol/HDL Ratio [Pending] Height (Feet): 6 Height (Inches): 3.00 Weight (Pounds): 190 General Appearance: no apparent distress Neck: normal alignment Cardiovascular: normal rate Respiratory/Chest: lungs clear Abdomen: normal bowel sounds Objective Current Medications Medications (Trade) Dose Ordered Sig/Mayank Route PRN Reason Start Time Stop Time Status Last Admin Dose Admin Acetaminophen (Tylenol) 650 mg Q4H PRN ORAL Mild Pain (Pain Scale 1-3) 10/05/18 14:30 11/04/18 14:29 Albuterol/ Ipratropium (Albuterol/ Ipratropium) 3 ml Q6H PRN HHN Shortness of Breath 10/05/18 15:30 10/10/18 15:29 Amlodipine Besylate (Norvasc) 10 mg DAILY ORAL 10/07/18 09:00 11/06/18 08:59 Cefepime HCl 1 gm/ Dextrose 55 ml @ 110 mls/hr Q24H IVPB 10/05/18 20:00 10/12/18 19:59 10/06/18 21:55 Dextrose (Dextrose 50%) 25 ml Q30M PRN IV Hypoglycemia 10/05/18 14:30 11/04/18 14:29 Dextrose (Dextrose 50%) 50 ml Q30M PRN IV Hypoglycemia 10/05/18 14:30 11/04/18 14:29 Diphenhydramine HCl (Benadryl) 25 mg Q6H PRN ORAL Itching/Pruritis 10/05/18 14:30 11/04/18 14:29 Docusate Sodium (Colace) 100 mg TID ORAL 10/06/18 18:00 11/04/18 20:59 10/06/18 17:05 Enoxaparin Sodium (Lovenox) 40 mg Q24H SUBQ 10/07/18 16:00 11/06/18 15:59 Famotidine (Pepcid) 40 mg DAILY ORAL 10/06/18 09:00 11/05/18 08:59 10/06/18 08:03 Hydralazine HCl (Apresoline) 50 mg Q8HR ORAL 10/06/18 22:00 11/05/18 20:59 10/07/18 06:27 Insulin Aspart (NovoLOG) BEFORE MEALS AND HS SUBQ 10/05/18 16:30 11/04/18 16:29 10/07/18 06:29 Insulin Human NPH (Humulin N) 4 units PRE BFAST AND DINNER SUBQ 10/05/18 16:30 11/04/18 16:29 10/07/18 06:29 Lorazepam (Ativan) 1 mg Q4H PRN ORAL For Anxiety 10/05/18 14:30 10/12/18 14:29 Morphine Sulfate (Morphine Sulfate) 2 mg Q6H PRN IVP Moderate Pain (Pain Scale 4-6) 10/05/18 14:30 10/12/18 14:29 Ondansetron HCl (Zofran) 4 mg Q6H PRN IVP Nausea & Vomiting 10/05/18 14:30 11/04/18 14:29 Tamsulosin HCl (Flomax) 0.4 mg BEDTIME ORAL 10/06/18 21:00 11/05/18 20:59 10/06/18 21:53 Vancomycin HCl (Vanco rx to dose) 1 ea DAILY PRN MISC Per rx protocol 10/05/18 18:00 11/04/18 17:59 Vancomycin HCl 1.25 gm/Dextrose 275 ml @ 183.333 mls/hr Q24H IVPB 10/06/18 20:00 10/11/18 19:59 10/06/18 22:37 Zolpidem Tartrate (Ambien) 5 mg HSPRN PRN ORAL Insomnia 10/05/18 14:30 10/12/18 14:29 Pj Stuart MD Oct 07, 2018 06:50
[2018-10-07 06:59] LABS: HEMATOCRIT 30.1 % (42.0-52.0); HEMOGLOBIN 9.7 G/DL (14.2-18.0); LYMPHOCYTES % (AUTO) 20.2 % (20.0-45.0); MEAN CORPUSCULAR VOLUME 88 FL (80-99); MONOCYTES % (AUTO) 15.1 % (1.0-10.0); NEUTROPHILS % (AUTO) 60.7 % (45.0-75.0); PLATELET COUNT 160 K/UL (150-450); RED BLOOD COUNT 3.43 M/UL (4.70-6.10); RED CELL DISTRIBUTION WIDTH 13.8 % (11.6-14.8); WHITE BLOOD COUNT 5.6 K/UL (4.8-10.8)
[2018-10-07 07:39] LABS: ALANINE AMINOTRANSFERASE 8 U/L (12-78); ALBUMIN 2.3 G/DL (3.4-5.0); ALBUMIN/GLOBULIN RATIO 0.5 (1.0-2.7); ALKALINE PHOSPHATASE 71 U/L (46-116); ANION GAP 12 mmol/L (5-15); ASPARTATE AMINO TRANSFERASE 10 U/L (15-37); BILIRUBIN,TOTAL 0.5 MG/DL (0.2-1.0); BLOOD UREA NITROGEN 11 mg/dL (7-18); CALCIUM 8.6 MG/DL (8.5-10.1); CARBON DIOXIDE 25 MMOL/L (21-32); CHLORIDE 103 MMOL/L (98-107); CHOLESTEROL 133 MG/DL (< 200); CREATININE 1.6 MG/DL (0.55-1.30); HDL CHOLESTEROL 43 MG/DL (40-60); PHOSPHORUS 3.5 MG/DL (2.5-4.9); POTASSIUM 3.3 MMOL/L (3.5-5.1); SODIUM 140 MMOL/L (136-145); TRIGLYCERIDES 74 MG/DL (30-150)
[2018-10-07 08:00] VITALS: BP 149/61
[2018-10-07] MEDS: Docusate 100mg cap ORAL SCH ×3 (08:10→17:32)
--- NOTE | 2018-10-07 11:58 | Infectious Diseases Prog Note ---
Assessment/Plan Assessment/Plan A: 1. Orbital cellulitis, likely dacryocystitis. MRSA in culture 2. E. coli ESBL UTI 3. Diabetes mellitus. 4. Hypertension. 5. Chronic kidney disease. 6. Anemia. 7. BPH. P: Continue IV Vancomycin Change Cefepime to Meropenem Subjective ROS Limited/Unobtainable: No Constitutional: Reports: no symptoms HEENT: Reports: no symptoms Respiratory: Reports: no symptoms Gastrointestinal/Abdominal: Reports: no symptoms Genitourinary: Reports: no symptoms Allergies: Coded Allergies: No Known Allergies (Unverified , 05/27/15) Objective Vital Signs Last 24 Hour Vital Signs Date Time Temp Pulse Resp B/P (MAP) Pulse Ox O2 Delivery O2 Flow Rate FiO2 10/07/18 09:00 Room Air 10/07/18 08:11 86 149/61 10/07/18 08:00 98.1 86 18 149/61 (90) 97 10/07/18 06:27 161/67 10/07/18 04:00 98.9 99 18 161/67 (98) 99 10/07/18 00:00 97.4 73 18 161/75 (103) 98 10/06/18 21:54 160/65 10/06/18 21:53 69 18 Room Air 21 10/06/18 21:00 Room Air 10/06/18 20:00 99.1 72 18 160/65 (96) 97 10/06/18 16:00 97.0 73 18 158/68 (98) 97 10/06/18 12:00 98.1 70 16 156/63 (94) 98 Height (Feet): 6 Height (Inches): 3.00 Weight (Pounds): 190 General Appearance: no acute distress HEENT: other - R medial eyelid swelling Cardiovascular: normal rate Abdomen: soft, non tender Extremities: no edema Neurologic/Psychiatric: alert, responsive Microbiology Date/Time Source Procedure Growth Status 10/05/18 13:10 Nasal Nares MRSA Culture - Final Staphylococcus Aureus - Mrsa Complete 10/05/18 10:45 Urine,Clean Catch Urine Culture - Final Escherichia Coli - Esbl Complete 10/05/18 13:10 Rectum VRE Culture - Preliminary Enterococcus Faecium - Vre Resulted 10/05/18 13:10 Rectum - Final NO CARBAPENEM-RESISTANT ENTEROBACTERI... Resulted 10/05/18 12:38 Eye Other Gram Stain - Final Complete 10/05/18 12:38 Wound Culture - Final Staphylococcus Aureus - Mrsa Complete Laboratory Tests Test 10/06/18 17:35 10/07/18 06:15 C-Reactive Protein, Quantitative 5.6 mg/dL (0.00-0.90) H Random Vancomycin Level 6.7 ug/mL White Blood Count 5.6 K/UL (4.8-10.8) Red Blood Count 3.43 M/UL (4.70-6.10) L Hemoglobin 9.7 G/DL (14.2-18.0) L Hematocrit 30.1 % (42.0-52.0) L Mean Corpuscular Volume 88 FL (80-99) Mean Corpuscular Hemoglobin 28.2 PG (27.0-31.0) Mean Corpuscular Hemoglobin Concent 32.1 G/DL (32.0-36.0) Red Cell Distribution Width 13.8 % (11.6-14.8) Platelet Count 160 K/UL (150-450) Mean Platelet Volume 7.6 FL (6.5-10.1) Neutrophils (%) (Auto) 60.7 % (45.0-75.0) Lymphocytes (%) (Auto) 20.2 % (20.0-45.0) Monocytes (%) (Auto) 15.1 % (1.0-10.0) H Eosinophils (%) (Auto) 3.0 % (0.0-3.0) Basophils (%) (Auto) 1.0 % (0.0-2.0) Sodium Level 140 MMOL/L (136-145) Potassium Level 3.3 MMOL/L (3.5-5.1) L Chloride Level 103 MMOL/L (98-107) Carbon Dioxide Level 25 MMOL/L (21-32) Anion Gap 12 mmol/L (5-15) Blood Urea Nitrogen 11 mg/dL (7-18) Creatinine 1.6 MG/DL (0.55-1.30) H Estimat Glomerular Filtration Rate mL/min (>60) Glucose Level 157 MG/DL (74-106) H Calcium Level 8.6 MG/DL (8.5-10.1) Phosphorus Level 3.5 MG/DL (2.5-4.9) Magnesium Level 1.4 MG/DL (1.8-2.4) L Total Bilirubin 0.5 MG/DL (0.2-1.0) Aspartate Amino Transf (AST/SGOT) 10 U/L (15-37) L Alanine Aminotransferase (ALT/SGPT) 8 U/L (12-78) L Alkaline Phosphatase 71 U/L (46-116) Pro-B-Type Natriuretic Peptide 403 pg/mL (0-125) H Total Protein 6.8 G/DL (6.4-8.2) Albumin 2.3 G/DL (3.4-5.0) L Globulin 4.5 g/dL Albumin/Globulin Ratio 0.5 (1.0-2.7) L Triglycerides Level 74 MG/DL (30-150) Cholesterol Level 133 MG/DL (< 200) LDL Cholesterol 76 mg/dL (<100) HDL Cholesterol 43 MG/DL (40-60) Cholesterol/HDL Ratio 3.1 (3.3-4.4) L Current Medications Medications (Trade) Dose Ordered Sig/Mayank Route PRN Reason Start Time Stop Time Status Last Admin Dose Admin Acetaminophen (Tylenol) 650 mg Q4H PRN ORAL Mild Pain (Pain Scale 1-3) 10/05/18 14:30 11/04/18 14:29 Albuterol/ Ipratropium (Albuterol/ Ipratropium) 3 ml Q6H PRN HHN Shortness of Breath 10/05/18 15:30 10/10/18 15:29 Amlodipine Besylate (Norvasc) 10 mg DAILY ORAL 10/07/18 09:00 11/06/18 08:59 10/07/18 08:11 Cefepime HCl 1 gm/ Dextrose 55 ml @ 110 mls/hr Q24H IVPB 10/05/18 20:00 10/12/18 19:59 10/06/18 21:55 Dextrose (Dextrose 50%) 25 ml Q30M PRN IV Hypoglycemia 10/07/18 07:00 11/06/18 06:59 Dextrose (Dextrose 50%) 50 ml Q30M PRN IV Hypoglycemia 10/07/18 07:00 11/06/18 06:59 Diphenhydramine HCl (Benadryl) 25 mg Q6H PRN ORAL Itching/Pruritis 10/05/18 14:30 11/04/18 14:29 Docusate Sodium (Colace) 100 mg TID ORAL 10/06/18 18:00 11/04/18 20:59 10/07/18 08:10 Enoxaparin Sodium (Lovenox) 40 mg Q24H SUBQ 10/07/18 16:00 11/06/18 15:59 Famotidine (Pepcid) 40 mg DAILY ORAL 10/06/18 09:00 11/05/18 08:59 10/07/18 08:11 Hydralazine HCl (Apresoline) 50 mg Q8HR ORAL 10/06/18 22:00 11/05/18 20:59 10/07/18 06:27 Insulin Aspart (NovoLOG) BEFORE MEALS AND HS SUBQ 10/07/18 11:30 11/06/18 11:29 10/07/18 11:47 Insulin Aspart (NovoLOG) 4 units NOVOTIAC SUBQ 10/07/18 11:50 11/06/18 11:49 10/07/18 11:47 Insulin Human NPH (Humulin N) 4 units PRE BFAST AND DINNER SUBQ 10/05/18 16:30 11/04/18 16:29 10/07/18 06:29 Lorazepam (Ativan) 1 mg Q4H PRN ORAL For Anxiety 10/05/18 14:30 10/12/18 14:29 Magnesium Sulfate 100 ml @ 100 mls/hr Q1H IVPB 10/07/18 10:30 10/07/18 14:29 10/07/18 11:46 Morphine Sulfate (Morphine Sulfate) 2 mg Q6H PRN IVP Moderate Pain (Pain Scale 4-6) 10/05/18 14:30 10/12/18 14:29 Ondansetron HCl (Zofran) 4 mg Q6H PRN IVP Nausea & Vomiting 10/05/18 14:30 11/04/18 14:29 Potassium Chloride (K-Dur) 40 meq TWICE A DAY ORAL 10/07/18 18:00 11/06/18 17:59 Tamsulosin HCl (Flomax) 0.4 mg BEDTIME ORAL 10/06/18 21:00 11/05/18 20:59 10/06/18 21:53 Vancomycin HCl (Vanco rx to dose) 1 ea DAILY PRN MISC Per rx protocol 10/05/18 18:00 11/04/18 17:59 Vancomycin HCl 1.25 gm/Dextrose 275 ml @ 183.333 mls/hr Q24H IVPB 10/06/18 20:00 10/11/18 19:59 10/06/18 22:37 Zolpidem Tartrate (Ambien) 5 mg HSPRN PRN ORAL Insomnia 10/05/18 14:30 10/12/18 14:29 Viktor Miranda MD Oct 07, 2018 11:58
[2018-10-07 12:00] VITALS: BP 155/57
--- NOTE | 2018-10-07 12:45 | Nephrology Progress Note ---
Assessment/Plan Problem List: (1) Acute on chronic renal failure (2) Hypertension (3) BPH (benign prostatic hyperplasia) (4) Anemia (5) UTI (urinary tract infection) Assessment (1) Acute on chronic renal failure (2) Diabetic nephropathy (3) Anemia (4) BPH (benign prostatic hyperplasia) (5) UTI (urinary tract infection) Plan K and Mag supplement flomax IV hydrate Antibiotics per ID reviewe 2D echo / SERGIO done previously monitor renal parameters and H&H Subjective ROS Limited/Unobtainable: No Objective Objective Last 24 Hour Vital Signs Date Time Temp Pulse Resp B/P (MAP) Pulse Ox O2 Delivery O2 Flow Rate FiO2 10/07/18 09:00 Room Air 10/07/18 08:11 86 149/61 10/07/18 08:00 98.1 86 18 149/61 (90) 97 10/07/18 06:27 161/67 10/07/18 04:00 98.9 99 18 161/67 (98) 99 10/07/18 00:00 97.4 73 18 161/75 (103) 98 10/06/18 21:54 160/65 10/06/18 21:53 69 18 Room Air 21 10/06/18 21:00 Room Air 10/06/18 20:00 99.1 72 18 160/65 (96) 97 10/06/18 16:00 97.0 73 18 158/68 (98) 97 Intake and Output 10/06/18 10/07/18 19:00 07:00 Intake Total 320 ml Balance 320 ml Intake Oral 320 ml # Voids 3 1 Laboratory Tests 10/06/18 17:35: C-Reactive Protein, Quantitative 5.6H, Random Vancomycin Level 6.7 10/07/18 06:15: White Blood Count 5.6, Red Blood Count 3.43L, Hemoglobin 9.7L, Hematocrit 30.1L , Mean Corpuscular Volume 88, Mean Corpuscular Hemoglobin 28.2, Mean Corpuscular Hemoglobin Concent 32.1, Red Cell Distribution Width 13.8, Platelet Count 160, Mean Platelet Volume 7.6, Neutrophils (%) (Auto) 60.7, Lymphocytes (% ) (Auto) 20.2, Monocytes (%) (Auto) 15.1H, Eosinophils (%) (Auto) 3.0, Basophils (%) (Auto) 1.0, Sodium Level 140, Potassium Level 3.3L, Chloride Level 103, Carbon Dioxide Level 25, Anion Gap 12, Blood Urea Nitrogen 11, Creatinine 1.6H, Estimat Glomerular Filtration Rate , Glucose Level 157H, Calcium Level 8.6, Phosphorus Level 3.5, Magnesium Level 1.4L, Total Bilirubin 0.5, Aspartate Amino Transf (AST/SGOT) 10L, Alanine Aminotransferase (ALT/SGPT) 8L, Alkaline Phosphatase 71, Pro-B-Type Natriuretic Peptide 403H, Total Protein 6.8, Albumin 2.3L, Globulin 4.5, Albumin/Globulin Ratio 0.5L, Triglycerides Level 74, Cholesterol Level 133, LDL Cholesterol 76, HDL Cholesterol 43, Cholesterol/HDL Ratio 3.1L Height (Feet): 6 Height (Inches): 3.00 Weight (Pounds): 190 General Appearance: no apparent distress EENT: other - right periorbital cellulitis Cardiovascular: normal rate Respiratory/Chest: decreased breath sounds Abdomen: soft Rodrigue Mackenzie MD Oct 07, 2018 12:45
[2018-10-07] MEDS: Meropenem 500 MG in NS 55 ML IVPB SCH ×2 (15:09→23:34)
[2018-10-07 16:00] VITALS: BP 134/51
[2018-10-07] MEDS ORDERED: Tubing IV Secondary IV ONE (16:29)
--- NOTE | 2018-10-07 16:48 | Consultation ---
History of Present Illness General Chief Complaint: Skin Rash/Abscess Present Illness Allergies: Coded Allergies: No Known Allergies (Unverified , 05/27/15) Medication History Scheduled Amlodipine Besylate* (Amlodipine Besylate*), 10 MG ORAL DAILY, (Reported) Bethanechol Chl* (Bethanechol Chloride*), 25 MG ORAL THREE TIMES A DAY, ( Reported) Finasteride* (Proscar*), 5 MG ORAL DAILY, (Reported) Hydralazine Hcl* (Hydralazine Hcl*), 75 MG ORAL QAM AND AT BEDTIME, (Reported) Insulin Detemir (Levemir), 46 SUBQ EVERY MORNING , (Reported) Mirtazapine* (Mirtazapine*), 7.5 MG ORAL BEDTIME, (Reported) Nateglinide* (Starlix*), 120 MG ORAL THREE TIMES A DAY, (Reported) Omeprazole (Omeprazole), 20 MG ORAL am, (Reported) Tamsulosin Hcl (Tamsulosin Hcl*), 0.4 MG ORAL BEDTIME, (Reported) Patient History Healthcare decision maker Resuscitation status Advanced Directive on File Physical Exam Last 24 Hour Vital Signs Date Time Temp Pulse Resp B/P (MAP) Pulse Ox O2 Delivery O2 Flow Rate FiO2 10/07/18 13:20 155/57 10/07/18 12:00 97.9 78 18 155/57 (89) 97 10/07/18 09:00 Room Air 10/07/18 08:11 86 149/61 10/07/18 08:00 98.1 86 18 149/61 (90) 97 10/07/18 06:27 161/67 10/07/18 04:00 98.9 99 18 161/67 (98) 99 10/07/18 00:00 97.4 73 18 161/75 (103) 98 10/06/18 21:54 160/65 10/06/18 21:53 69 18 Room Air 21 10/06/18 21:00 Room Air 10/06/18 20:00 99.1 72 18 160/65 (96) 97 Intake and Output 10/06/18 10/07/18 19:00 07:00 Intake Total 320 ml Balance 320 ml Intake Oral 320 ml # Voids 3 1 Laboratory Tests Test 10/06/18 17:35 3/25/19 06:15 C-Reactive Protein, Quantitative 5.6 mg/dL (0.00-0.90) H Random Vancomycin Level 6.7 ug/mL White Blood Count 5.6 K/UL (4.8-10.8) Red Blood Count 3.43 M/UL (4.70-6.10) L Hemoglobin 9.7 G/DL (14.2-18.0) L Hematocrit 30.1 % (42.0-52.0) L Mean Corpuscular Volume 88 FL (80-99) Mean Corpuscular Hemoglobin 28.2 PG (27.0-31.0) Mean Corpuscular Hemoglobin Concent 32.1 G/DL (32.0-36.0) Red Cell Distribution Width 13.8 % (11.6-14.8) Platelet Count 160 K/UL (150-450) Mean Platelet Volume 7.6 FL (6.5-10.1) Neutrophils (%) (Auto) 60.7 % (45.0-75.0) Lymphocytes (%) (Auto) 20.2 % (20.0-45.0) Monocytes (%) (Auto) 15.1 % (1.0-10.0) H Eosinophils (%) (Auto) 3.0 % (0.0-3.0) Basophils (%) (Auto) 1.0 % (0.0-2.0) Sodium Level 140 MMOL/L (136-145) Potassium Level 3.3 MMOL/L (3.5-5.1) L Chloride Level 103 MMOL/L (98-107) Carbon Dioxide Level 25 MMOL/L (21-32) Anion Gap 12 mmol/L (5-15) Blood Urea Nitrogen 11 mg/dL (7-18) Creatinine 1.6 MG/DL (0.55-1.30) H Estimat Glomerular Filtration Rate mL/min (>60) Glucose Level 157 MG/DL (74-106) H Calcium Level 8.6 MG/DL (8.5-10.1) Phosphorus Level 3.5 MG/DL (2.5-4.9) Magnesium Level 1.4 MG/DL (1.8-2.4) L Total Bilirubin 0.5 MG/DL (0.2-1.0) Aspartate Amino Transf (AST/SGOT) 10 U/L (15-37) L Alanine Aminotransferase (ALT/SGPT) 8 U/L (12-78) L Alkaline Phosphatase 71 U/L (46-116) Pro-B-Type Natriuretic Peptide 403 pg/mL (0-125) H Total Protein 6.8 G/DL (6.4-8.2) Albumin 2.3 G/DL (3.4-5.0) L Globulin 4.5 g/dL Albumin/Globulin Ratio 0.5 (1.0-2.7) L Triglycerides Level 74 MG/DL (30-150) Cholesterol Level 133 MG/DL (< 200) LDL Cholesterol 76 mg/dL (<100) HDL Cholesterol 43 MG/DL (40-60) Cholesterol/HDL Ratio 3.1 (3.3-4.4) L Height (Feet): 6 Height (Inches): 3.00 Weight (Pounds): 190 Medications Current Medications Medications (Trade) Dose Ordered Sig/Mayank Route PRN Reason Start Time Stop Time Status Last Admin Dose Admin Acetaminophen (Tylenol) 650 mg Q4H PRN ORAL Mild Pain (Pain Scale 1-3) 10/05/18 14:30 11/04/18 14:29 Albuterol/ Ipratropium (Albuterol/ Ipratropium) 3 ml Q6H PRN HHN Shortness of Breath 10/05/18 15:30 10/10/18 15:29 Amlodipine Besylate (Norvasc) 10 mg DAILY ORAL 10/07/18 09:00 11/06/18 08:59 10/07/18 08:11 Dextrose (Dextrose 50%) 25 ml Q30M PRN IV Hypoglycemia 10/07/18 07:00 11/06/18 06:59 Dextrose (Dextrose 50%) 50 ml Q30M PRN IV Hypoglycemia 10/07/18 07:00 11/06/18 06:59 Diphenhydramine HCl (Benadryl) 25 mg Q6H PRN ORAL Itching/Pruritis 10/05/18 14:30 11/04/18 14:29 Docusate Sodium (Colace) 100 mg TID ORAL 10/06/18 18:00 11/04/18 20:59 10/07/18 12:56 Enoxaparin Sodium (Lovenox) 40 mg Q24H SUBQ 10/07/18 16:00 11/06/18 15:59 Famotidine (Pepcid) 40 mg DAILY ORAL 10/06/18 09:00 11/05/18 08:59 10/07/18 08:11 Hydralazine HCl (Apresoline) 50 mg Q8HR ORAL 10/06/18 22:00 11/05/18 20:59 10/07/18 13:20 Insulin Aspart (NovoLOG) BEFORE MEALS AND HS SUBQ 10/07/18 11:30 11/06/18 11:29 10/07/18 11:47 Insulin Aspart (NovoLOG) 4 units NOVOTIAC SUBQ 10/07/18 11:50 11/06/18 11:49 10/07/18 11:47 Insulin Human NPH (Humulin N) 4 units PRE BFAST AND DINNER SUBQ 10/05/18 16:30 11/04/18 16:29 10/07/18 06:29 Lorazepam (Ativan) 1 mg Q4H PRN ORAL For Anxiety 10/05/18 14:30 10/12/18 14:29 Meropenem 500 mg/ Sodium Chloride 55 ml @ 110 mls/hr EVERY 8 HOURS IVPB 10/07/18 14:00 10/12/18 13:59 10/07/18 15:09 Morphine Sulfate (Morphine Sulfate) 2 mg Q6H PRN IVP Moderate Pain (Pain Scale 4-6) 10/05/18 14:30 10/12/18 14:29 Ondansetron HCl (Zofran) 4 mg Q6H PRN IVP Nausea & Vomiting 10/05/18 14:30 11/04/18 14:29 Potassium Chloride (K-Dur) 40 meq TWICE A DAY ORAL 10/07/18 18:00 11/06/18 17:59 Tamsulosin HCl (Flomax) 0.4 mg BEDTIME ORAL 10/06/18 21:00 11/05/18 20:59 10/06/18 21:53 Vancomycin HCl (Vanco rx to dose) 1 ea DAILY PRN MISC Per rx protocol 10/05/18 18:00 11/04/18 17:59 Vancomycin HCl 1.25 gm/Dextrose 275 ml @ 183.333 mls/hr Q24H IVPB 10/06/18 20:00 10/11/18 19:59 10/06/18 22:37 Zolpidem Tartrate (Ambien) 5 mg HSPRN PRN ORAL Insomnia 10/05/18 14:30 10/12/18 14:29 Assessment/Plan Assessment/Plan Hematology consultation REQ MD: Aliyah Miller RFC: Anemia of chronic disease, leukopcytosis DOS: 10/07/18 ID 80-year-old male sent in by nursing facility with right eye swelling Patient was noted to have become febrile,. He was noted to have nonproductive cough as well as increased difficulty breathing. Startedon abx as per id, was noted to have anemia and heme was consulted. Seen by renal, ID, endo -- notes reviewed Allergies: No Known Allergies (Unverified , 05/27/15) Patient History Past Medical History: see triage record Reviewed Nursing Documentation: PMH: Agreed; PSxH: Agreed Nursing Documentation-PMH Past Medical History: No History, Except For Hx Cardiac Problems: Yes Hx Hypertension: Yes Hx Diabetes: Yes Hx Cancer: No Hx Gastrointestinal Problems: No Hx Dialysis: No - Chronic Kidney Disease, UTI Hx Neurological Problems: No ROS: limited - by poor historian Last 24 Hour Vital Signs Date Time Temp Pulse Resp B/P (MAP) Pulse Ox O2 Delivery O2 Flow Rate FiO2 10/07/18 13:20 155/57 10/07/18 12:00 97.9 78 18 155/57 (89) 97 10/07/18 09:00 Room Air 10/07/18 08:11 86 149/61 10/07/18 08:00 98.1 86 18 149/61 (90) 97 10/07/18 06:27 161/67 10/07/18 04:00 98.9 99 18 161/67 (98) 99 10/07/18 00:00 97.4 73 18 161/75 (103) 98 10/06/18 21:54 160/65 10/06/18 21:53 69 18 Room Air 21 10/06/18 21:00 Room Air 10/06/18 20:00 99.1 72 18 160/65 (96) 97 PE ENT: dry mucus membranes Neck: limited range of motion Respiratory: decreased breath sounds Cardiovascular: normal peripheral pulses, rrr Gastrointestinal: normal bowel sounds, soft, tenderness - suprapubic Musculoskeletal: decreased range of motion Neurologic: normal inspection, alert, responsive Psychiatric: normal inspection Skin: normal inspection, normal color Laboratory Tests Test 10/06/18 17:35 10/07/18 06:15 C-Reactive Protein, Quantitative 5.6 mg/dL (0.00-0.90) H Random Vancomycin Level 6.7 ug/mL White Blood Count 5.6 K/UL (4.8-10.8) Red Blood Count 3.43 M/UL (4.70-6.10) L Hemoglobin 9.7 G/DL (14.2-18.0) L Hematocrit 30.1 % (42.0-52.0) L Mean Corpuscular Volume 88 FL (80-99) Mean Corpuscular Hemoglobin 28.2 PG (27.0-31.0) Mean Corpuscular Hemoglobin Concent 32.1 G/DL (32.0-36.0) Red Cell Distribution Width 13.8 % (11.6-14.8) Platelet Count 160 K/UL (150-450) Mean Platelet Volume 7.6 FL (6.5-10.1) Neutrophils (%) (Auto) 60.7 % (45.0-75.0) Lymphocytes (%) (Auto) 20.2 % (20.0-45.0) Monocytes (%) (Auto) 15.1 % (1.0-10.0) H Eosinophils (%) (Auto) 3.0 % (0.0-3.0) Basophils (%) (Auto) 1.0 % (0.0-2.0) Sodium Level 140 MMOL/L (136-145) Potassium Level 3.3 MMOL/L (3.5-5.1) L Chloride Level 103 MMOL/L (98-107) Carbon Dioxide Level 25 MMOL/L (21-32) Anion Gap 12 mmol/L (5-15) Blood Urea Nitrogen 11 mg/dL (7-18) Creatinine 1.6 MG/DL (0.55-1.30) H Estimat Glomerular Filtration Rate mL/min (>60) Glucose Level 157 MG/DL (74-106) H Calcium Level 8.6 MG/DL (8.5-10.1) Phosphorus Level 3.5 MG/DL (2.5-4.9) Magnesium Level 1.4 MG/DL (1.8-2.4) L Total Bilirubin 0.5 MG/DL (0.2-1.0) Aspartate Amino Transf (AST/SGOT) 10 U/L (15-37) L Alanine Aminotransferase (ALT/SGPT) 8 U/L (12-78) L Alkaline Phosphatase 71 U/L (46-116) Pro-B-Type Natriuretic Peptide 403 pg/mL (0-125) H Total Protein 6.8 G/DL (6.4-8.2) Albumin 2.3 G/DL (3.4-5.0) L Globulin 4.5 g/dL Albumin/Globulin Ratio 0.5 (1.0-2.7) L Triglycerides Level 74 MG/DL (30-150) Cholesterol Level 133 MG/DL (< 200) LDL Cholesterol 76 mg/dL (<100) HDL Cholesterol 43 MG/DL (40-60) Cholesterol/HDL Ratio 3.1 (3.3-4.4) L Assess/Recs: # Anemia of chronic disease (or of iron deficiency) due to underlying chronic medical issues, multifactorial --> Anemia workup has been ordered --> No evidence of hemolysis is noted, peripheral smear has been reviewed. --> Hgb goal >7. Transfuse prn. --> Epogen or iron at this time is not particularly indicated --> Medications have been reviewed # Leukocytosis. Likely related to underlying infection versus reactive process. --> have reviewed peripheral smear and bandemia/neutrophilia noted --> continue antibiotics if they have been started by ID team --> monitor for resolution --> if the wbc count has improved then say improved in the first line --> on abx as per id # UTI with sepsis --> management as per id. --> CT of abdomen pelvis without contrast read by radiology showed bladder thickening and possible cystitis prior admission --> as per id recs # MISAEL on ckd --> as per renal team # DM nephropathy # BPH # Hypokalemia --> replete with k as needed # Right eye swelling/id --> per id care The timing of this note does not necessarily reflect the time of the patient was seen. Greatly appreciate consultation! Cesar Singh MD Oct 07, 2018 16:48
[2018-10-07] MEDS: Enoxaparin 40mg Inj SUBQ SCH (16:52)
[2018-10-07 20:00] VITALS: BP 136/56
[2018-10-07] MEDS: Vancomycin 1.25mg/D5W 275ml IVPB SCH ×2 (21:54)
[2018-10-07] MEDS: Tamsulosin 0.4mg cap ORAL SCH (21:54)
--- NOTE | 2018-10-07 21:59 | General Progress Note ---
Assessment/Plan Problem List: (1) BPH (benign prostatic hyperplasia) ICD Codes: N40.0 - Benign prostatic hyperplasia without lower urinary tract symptoms SNOMED: 248422517 (2) Facial abscess ICD Codes: L02.01 - Cutaneous abscess of face SNOMED: 654588470 (3) Renal insufficiency ICD Codes: N28.9 - Disorder of kidney and ureter, unspecified SNOMED: 718864576, 222859496 (4) Hypertension ICD Codes: I10 - Essential (primary) hypertension SNOMED: 96701944 Status: progressing Assessment/Plan s/p i&d of facial abscess by er dr meléndez per id reviwed chart and labs and meds facial celluitis and abscess Subjective ROS Limited/Unobtainable: Yes Allergies: Coded Allergies: No Known Allergies (Unverified , 05/27/15) Objective Last 24 Hour Vital Signs Date Time Temp Pulse Resp B/P (MAP) Pulse Ox O2 Delivery O2 Flow Rate FiO2 10/07/18 21:54 136/56 10/07/18 20:00 97.7 74 18 136/56 (82) 99 10/07/18 16:00 98.1 74 18 134/51 (78) 99 10/07/18 13:20 155/57 10/07/18 12:00 97.9 78 18 155/57 (89) 97 10/07/18 09:00 Room Air 10/07/18 08:11 86 149/61 10/07/18 08:00 98.1 86 18 149/61 (90) 97 10/07/18 06:27 161/67 10/07/18 04:00 98.9 99 18 161/67 (98) 99 10/07/18 00:00 97.4 73 18 161/75 (103) 98 Intake and Output 10/06/18 10/07/18 19:00 07:00 Intake Total 320 ml Balance 320 ml Intake Oral 320 ml # Voids 3 1 Laboratory Tests 10/07/18 06:15: White Blood Count 5.6, Red Blood Count 3.43L, Hemoglobin 9.7L, Hematocrit 30.1L , Mean Corpuscular Volume 88, Mean Corpuscular Hemoglobin 28.2, Mean Corpuscular Hemoglobin Concent 32.1, Red Cell Distribution Width 13.8, Platelet Count 160, Mean Platelet Volume 7.6, Neutrophils (%) (Auto) 60.7, Lymphocytes (% ) (Auto) 20.2, Monocytes (%) (Auto) 15.1H, Eosinophils (%) (Auto) 3.0, Basophils (%) (Auto) 1.0, Sodium Level 140, Potassium Level 3.3L, Chloride Level 103, Carbon Dioxide Level 25, Anion Gap 12, Blood Urea Nitrogen 11, Creatinine 1.6H, Estimat Glomerular Filtration Rate , Glucose Level 157H, Calcium Level 8.6, Phosphorus Level 3.5, Magnesium Level 1.4L, Total Bilirubin 0.5, Aspartate Amino Transf (AST/SGOT) 10L, Alanine Aminotransferase (ALT/SGPT) 8L, Alkaline Phosphatase 71, Pro-B-Type Natriuretic Peptide 403H, Total Protein 6.8, Albumin 2.3L, Globulin 4.5, Albumin/Globulin Ratio 0.5L, Triglycerides Level 74, Cholesterol Level 133, LDL Cholesterol 76, HDL Cholesterol 43, Cholesterol/HDL Ratio 3.1L Height (Feet): 6 Height (Inches): 3.00 Weight (Pounds): 190 Cardiovascular: regular rhythm Respiratory/Chest: lungs clear Abdomen: soft Aliyah Miller MD Oct 07, 2018 21:59
[2018-10-08] VITALS: BP 158/70
[2018-10-08 04:00] VITALS: BP 159/69
[2018-10-08] MEDS: Meropenem 500 MG in NS 55 ML IVPB SCH ×3 (06:01→22:35)
[2018-10-08] MEDS: NovoLOG Insulin Flexpen SUBQ SCH ×7 (06:02→21:00)
[2018-10-08] MEDS: HydrALAZINE 50mg tab ORAL SCH ×3 (06:02→22:35)
[2018-10-08] MEDS: Insulin NPH SUBQ SCH ×2 (06:04→16:45)
--- NOTE | 2018-10-08 06:46 | General Progress Note ---
Assessment/Plan Problem List: (1) Mastoiditis of right side ICD Codes: H70.91 - Unspecified mastoiditis, right ear SNOMED: 63334765 (2) Hypertension ICD Codes: I10 - Essential (primary) hypertension SNOMED: 44206119 (3) UTI (urinary tract infection) ICD Codes: N39.0 - Urinary tract infection, site not specified SNOMED: 46015578 Qualifiers: Qualified Codes: N39.0 - Urinary tract infection, site not specified (4) Diabetes ICD Codes: E11.9 - Type 2 diabetes mellitus without complications SNOMED: 54525250 Assessment/Plan continue Novolog 4 units ac itd continue NPH 4 units bid continue NISS ac / hs Subjective Allergies: Coded Allergies: No Known Allergies (Unverified , 05/27/15) All Systems: reviewed and negative except above Subjective events noted Item Value Date Time Bedside Blood Glucose 196 mg/dl H 10/08/18 0630 Bedside Blood Glucose 107 mg/dl 10/07/18 2100 Bedside Blood Glucose 315 mg/dl H 10/07/18 1654 Bedside Blood Glucose 253 mg/dl H 10/07/18 1147 Bedside Blood Glucose 157 mg/dl H 10/07/18 0629 Objective Last 24 Hour Vital Signs Date Time Temp Pulse Resp B/P (MAP) Pulse Ox O2 Delivery O2 Flow Rate FiO2 10/08/18 06:02 159/69 10/08/18 04:00 98.5 77 18 159/69 (99) 99 10/08/18 02:16 75 16 Room Air 21 10/08/18 00:00 98.1 61 18 158/70 (99) 99 61 10/07/18 21:54 136/56 10/07/18 21:00 Room Air 10/07/18 20:00 97.7 74 18 136/56 (82) 99 10/07/18 16:00 98.1 74 18 134/51 (78) 99 10/07/18 13:20 155/57 10/07/18 12:00 97.9 78 18 155/57 (89) 97 10/07/18 09:00 Room Air 10/07/18 08:11 86 149/61 10/07/18 08:00 98.1 86 18 149/61 (90) 97 Intake and Output 10/07/18 10/08/18 18:59 06:59 Intake Total 990 ml 570.000 ml Balance 990 ml 570.000 ml Intake Oral 480 ml 240 ml IV Total 510 ml 330.000 ml # Voids 3 1 Height (Feet): 6 Height (Inches): 3.00 Weight (Pounds): 190 General Appearance: no apparent distress Neck: normal alignment Cardiovascular: normal rate Respiratory/Chest: lungs clear Abdomen: normal bowel sounds Objective Current Medications Medications (Trade) Dose Ordered Sig/Mayank Route PRN Reason Start Time Stop Time Status Last Admin Dose Admin Acetaminophen (Tylenol) 650 mg Q4H PRN ORAL Mild Pain (Pain Scale 1-3) 10/05/18 14:30 11/04/18 14:29 Albuterol/ Ipratropium (Albuterol/ Ipratropium) 3 ml Q6H PRN HHN Shortness of Breath 10/05/18 15:30 10/10/18 15:29 Amlodipine Besylate (Norvasc) 10 mg DAILY ORAL 10/07/18 09:00 11/06/18 08:59 10/07/18 08:11 Dextrose (Dextrose 50%) 25 ml Q30M PRN IV Hypoglycemia 10/07/18 07:00 11/06/18 06:59 Dextrose (Dextrose 50%) 50 ml Q30M PRN IV Hypoglycemia 10/07/18 07:00 11/06/18 06:59 Diphenhydramine HCl (Benadryl) 25 mg Q6H PRN ORAL Itching/Pruritis 10/05/18 14:30 11/04/18 14:29 Docusate Sodium (Colace) 100 mg TID ORAL 10/06/18 18:00 11/04/18 20:59 10/07/18 17:32 Enoxaparin Sodium (Lovenox) 40 mg Q24H SUBQ 10/07/18 16:00 11/06/18 15:59 10/07/18 16:52 Famotidine (Pepcid) 40 mg DAILY ORAL 10/06/18 09:00 11/05/18 08:59 10/07/18 08:11 Hydralazine HCl (Apresoline) 50 mg Q8HR ORAL 10/06/18 22:00 11/05/18 20:59 10/08/18 06:02 Insulin Aspart (NovoLOG) BEFORE MEALS AND HS SUBQ 10/07/18 11:30 11/06/18 11:29 10/08/18 06:02 Insulin Aspart (NovoLOG) 4 units NOVOTIAC SUBQ 10/07/18 11:50 11/06/18 11:49 10/08/18 06:03 Insulin Human NPH (Humulin N) 4 units PRE BFAST AND DINNER SUBQ 10/05/18 16:30 11/04/18 16:29 10/08/18 06:04 Lorazepam (Ativan) 1 mg Q4H PRN ORAL For Anxiety 10/05/18 14:30 10/12/18 14:29 Meropenem 500 mg/ Sodium Chloride 55 ml @ 110 mls/hr EVERY 8 HOURS IVPB 10/07/18 14:00 10/12/18 13:59 10/08/18 06:01 Morphine Sulfate (Morphine Sulfate) 2 mg Q6H PRN IVP Moderate Pain (Pain Scale 4-6) 10/05/18 14:30 10/12/18 14:29 Ondansetron HCl (Zofran) 4 mg Q6H PRN IVP Nausea & Vomiting 10/05/18 14:30 11/04/18 14:29 Potassium Chloride (K-Dur) 40 meq TWICE A DAY ORAL 10/07/18 18:00 11/06/18 17:59 10/07/18 17:32 Tamsulosin HCl (Flomax) 0.4 mg BEDTIME ORAL 10/06/18 21:00 11/05/18 20:59 10/07/18 21:54 Vancomycin HCl (Vanco rx to dose) 1 ea DAILY PRN MISC Per rx protocol 10/05/18 18:00 11/04/18 17:59 Vancomycin HCl 1.25 gm/Dextrose 275 ml @ 183.333 mls/hr Q24H IVPB 10/06/18 20:00 10/11/18 19:59 10/07/18 21:54 Zolpidem Tartrate (Ambien) 5 mg HSPRN PRN ORAL Insomnia 10/05/18 14:30 10/12/18 14:29 Pj Stuart MD Oct 08, 2018 06:46
[2018-10-08 08:00] VITALS: BP 166/64
[2018-10-08] MEDS ORDERED: Miralax 17gm pkt ORAL PRN (08:30)
[2018-10-08] MEDS: Docusate 100mg cap ORAL SCH ×3 (09:41→16:48)
[2018-10-08 12:00] VITALS: BP 147/69
--- NOTE | 2018-10-08 13:09 | General Progress Note ---
Assessment/Plan Assessment/Plan Assess/Recs: # Anemia of chronic disease (or of iron deficiency) due to underlying chronic medical issues, multifactorial --> Anemia workup has been ordered --> No evidence of hemolysis is noted, peripheral smear has been reviewed. --> Hgb goal >7. Transfuse prn. --> Epogen or iron at this time is not particularly indicated --> Medications have been reviewed # Leukocytosis. Likely related to underlying infection versus reactive process. --> have reviewed peripheral smear and bandemia/neutrophilia noted --> continue antibiotics if they have been started by ID team --> monitor for resolution --> if the wbc count has improved then say improved in the first line --> on abx as per id # UTI with sepsis --> management as per id. --> CT of abdomen pelvis without contrast read by radiology showed bladder thickening and possible cystitis prior admission --> as per id recs # MISAEL on ckd --> as per renal team # DM nephropathy # BPH # Hypokalemia --> replete with k as needed # Right eye swelling/id --> per id care The timing of this note does not necessarily reflect the time of the patient was seen. Greatly appreciate consultation! Subjective Constitutional: Denies: no symptoms, chills, diaphoresis, fever, malaise, weakness, other HEENT: Denies: no symptoms, eye pain, blurred vision, tearing, double vision, ear pain, ear discharge, nose pain, nose congestion, throat pain, throat swelling, mouth pain, mouth swelling, other Cardiovascular: Denies: no symptoms, chest pain, edema, irregular heart rate, lightheadedness, palpitations, syncope, other Respiratory: Denies: no symptoms, cough, orthopnea, shortness of breath, SOB with excertion, SOB at rest, sputum, stridor, wheezing, other Gastrointestinal/Abdominal: Denies: no symptoms, abdomen distended, abdominal pain, black stools, tarry stools, blood in stool, constipated, diarrhea, difficulty swallowing, nausea, poor appetite, poor fluid intake, rectal bleeding , vomiting, other Neurologic/Psychiatric: Denies: no symptoms, anxiety, depressed, emotional problems, headache, numbness, paresthesia, pre-existing deficit, seizure, tingling, tremors, weakness, other Endocrine: Denies: no symptoms, excessive sweating, flushing, intolerance to cold, intolerance to heat, increased hunger, increased thirst, increased urine, unexplained weight gain, unexplained weight loss, other Allergies: Coded Allergies: No Known Allergies (Unverified , 05/27/15) Subjective 10/08: no events to report, no fevers or chills noted Objective Last 24 Hour Vital Signs Date Time Temp Pulse Resp B/P (MAP) Pulse Ox O2 Delivery O2 Flow Rate FiO2 10/08/18 09:41 77 159/69 10/08/18 09:00 Room Air 10/08/18 08:00 97.6 83 16 166/64 (98) 100 83 10/08/18 06:02 159/69 10/08/18 04:00 98.5 77 18 159/69 (99) 99 10/08/18 02:16 75 16 Room Air 21 10/08/18 00:00 98.1 61 18 158/70 (99) 99 61 10/07/18 21:54 136/56 10/07/18 21:00 Room Air 10/07/18 20:00 97.7 74 18 136/56 (82) 99 10/07/18 16:00 98.1 74 18 134/51 (78) 99 10/07/18 13:20 155/57 Intake and Output 10/07/18 10/08/18 19:00 07:00 Intake Total 990 ml 625.000 ml Balance 990 ml 625.000 ml Intake Oral 480 ml 240 ml IV Total 510 ml 385.000 ml # Voids 3 1 Height (Feet): 6 Height (Inches): 3.00 Weight (Pounds): 190 Objective ENT: dry mucus membranes Neck: limited range of motion Respiratory: decreased breath sounds Cardiovascular: normal peripheral pulses, rrr Gastrointestinal: normal bowel sounds, soft, tenderness - suprapubic Musculoskeletal: decreased range of motion Neurologic: normal inspection, alert, responsive Psychiatric: normal inspection Skin: normal inspection, normal color Cesar Singh MD Oct 08, 2018 13:09
--- NOTE | 2018-10-08 13:14 | Nephrology Progress Note ---
Assessment/Plan Problem List: (1) Acute on chronic renal failure (2) Hypertension (3) BPH (benign prostatic hyperplasia) (4) Anemia (5) UTI (urinary tract infection) Assessment (1) Acute on chronic renal failure (2) Diabetic nephropathy (3) Anemia (4) BPH (benign prostatic hyperplasia) (5) UTI (urinary tract infection) Plan no labs today- K and Mag supplement as needed flomax IV hydrate Antibiotics per ID reviewe 2D echo / SERGIO done previously monitor renal parameters and H&H Subjective ROS Limited/Unobtainable: No Objective Objective Last 24 Hour Vital Signs Date Time Temp Pulse Resp B/P (MAP) Pulse Ox O2 Delivery O2 Flow Rate FiO2 10/08/18 09:41 77 159/69 10/08/18 09:00 Room Air 10/08/18 08:00 97.6 83 16 166/64 (98) 100 83 10/08/18 06:02 159/69 10/08/18 04:00 98.5 77 18 159/69 (99) 99 10/08/18 02:16 75 16 Room Air 21 10/08/18 00:00 98.1 61 18 158/70 (99) 99 61 10/07/18 21:54 136/56 10/07/18 21:00 Room Air 10/07/18 20:00 97.7 74 18 136/56 (82) 99 10/07/18 16:00 98.1 74 18 134/51 (78) 99 10/07/18 13:20 155/57 Intake and Output 10/07/18 10/08/18 19:00 07:00 Intake Total 990 ml 625.000 ml Balance 990 ml 625.000 ml Intake Oral 480 ml 240 ml IV Total 510 ml 385.000 ml # Voids 3 1 Height (Feet): 6 Height (Inches): 3.00 Weight (Pounds): 190 General Appearance: no apparent distress Objective no change Rodrigue Mackenzie MD Oct 08, 2018 13:14
--- NOTE | 2018-10-08 13:24 | Infectious Diseases Prog Note ---
Assessment/Plan Assessment/Plan A: 1. Orbital cellulitis, likely dacryocystitis. MRSA in culture 2. E. coli ESBL UTI 3. Diabetes mellitus. 4. Hypertension. 5. Chronic kidney disease. 6. Anemia. 7. BPH. P: Continue IV Vancomycin & Meropenem Subjective ROS Limited/Unobtainable: No Constitutional: Reports: no symptoms Respiratory: Reports: no symptoms Cardiovascular: Reports: no symptoms Gastrointestinal/Abdominal: Reports: no symptoms Genitourinary: Reports: no symptoms Allergies: Coded Allergies: No Known Allergies (Unverified , 05/27/15) Objective Vital Signs Last 24 Hour Vital Signs Date Time Temp Pulse Resp B/P (MAP) Pulse Ox O2 Delivery O2 Flow Rate FiO2 10/08/18 09:41 77 159/69 10/08/18 09:00 Room Air 10/08/18 08:00 97.6 83 16 166/64 (98) 100 83 10/08/18 06:02 159/69 10/08/18 04:00 98.5 77 18 159/69 (99) 99 10/08/18 02:16 75 16 Room Air 21 10/08/18 00:00 98.1 61 18 158/70 (99) 99 61 10/07/18 21:54 136/56 10/07/18 21:00 Room Air 10/07/18 20:00 97.7 74 18 136/56 (82) 99 10/07/18 16:00 98.1 74 18 134/51 (78) 99 Height (Feet): 6 Height (Inches): 3.00 Weight (Pounds): 190 General Appearance: no acute distress HEENT: other - R lacrimal gland area swelling Cardiovascular: normal rate Abdomen: soft, non tender Extremities: no edema Neurologic/Psychiatric: alert, responsive Current Medications Medications (Trade) Dose Ordered Sig/Mayank Route PRN Reason Start Time Stop Time Status Last Admin Dose Admin Acetaminophen (Tylenol) 650 mg Q4H PRN ORAL Mild Pain (Pain Scale 1-3) 10/05/18 14:30 11/04/18 14:29 Albuterol/ Ipratropium (Albuterol/ Ipratropium) 3 ml Q6H PRN HHN Shortness of Breath 10/05/18 15:30 10/10/18 15:29 Amlodipine Besylate (Norvasc) 10 mg DAILY ORAL 10/07/18 09:00 11/06/18 08:59 10/08/18 09:41 Dextrose (Dextrose 50%) 25 ml Q30M PRN IV Hypoglycemia 10/07/18 07:00 11/06/18 06:59 Dextrose (Dextrose 50%) 50 ml Q30M PRN IV Hypoglycemia 10/07/18 07:00 11/06/18 06:59 Diphenhydramine HCl (Benadryl) 25 mg Q6H PRN ORAL Itching/Pruritis 10/05/18 14:30 11/04/18 14:29 Docusate Sodium (Colace) 100 mg TID ORAL 10/06/18 18:00 11/04/18 20:59 10/08/18 09:41 Enoxaparin Sodium (Lovenox) 40 mg Q24H SUBQ 10/07/18 16:00 11/06/18 15:59 10/07/18 16:52 Famotidine (Pepcid) 40 mg DAILY ORAL 10/06/18 09:00 11/05/18 08:59 10/08/18 09:41 Hydralazine HCl (Apresoline) 50 mg Q8HR ORAL 10/06/18 22:00 11/05/18 20:59 10/08/18 06:02 Insulin Aspart (NovoLOG) BEFORE MEALS AND HS SUBQ 10/07/18 11:30 11/06/18 11:29 10/08/18 06:02 Insulin Aspart (NovoLOG) 4 units NOVOTIAC SUBQ 10/07/18 11:50 11/06/18 11:49 10/08/18 06:03 Insulin Human NPH (Humulin N) 4 units PRE BFAST AND DINNER SUBQ 10/05/18 16:30 11/04/18 16:29 10/08/18 06:04 Lorazepam (Ativan) 1 mg Q4H PRN ORAL For Anxiety 10/05/18 14:30 10/12/18 14:29 Meropenem 500 mg/ Sodium Chloride 55 ml @ 110 mls/hr EVERY 8 HOURS IVPB 10/07/18 14:00 10/12/18 13:59 10/08/18 06:01 Morphine Sulfate (Morphine Sulfate) 2 mg Q6H PRN IVP Moderate Pain (Pain Scale 4-6) 10/05/18 14:30 10/12/18 14:29 Ondansetron HCl (Zofran) 4 mg Q6H PRN IVP Nausea & Vomiting 10/05/18 14:30 11/04/18 14:29 Polyethylene Glycol (Miralax) 17 gm DAILY PRN ORAL Constipation 10/08/18 08:30 11/07/18 08:29 10/08/18 09:42 Potassium Chloride (K-Dur) 40 meq TWICE A DAY ORAL 10/07/18 18:00 11/06/18 17:59 10/08/18 09:42 Tamsulosin HCl (Flomax) 0.4 mg BEDTIME ORAL 10/06/18 21:00 11/05/18 20:59 10/07/18 21:54 Vancomycin HCl (Vanco rx to dose) 1 ea DAILY PRN MISC Per rx protocol 10/05/18 18:00 11/04/18 17:59 Vancomycin HCl 1.25 gm/Dextrose 275 ml @ 183.333 mls/hr Q24H IVPB 10/06/18 20:00 10/11/18 19:59 10/07/18 21:54 Zolpidem Tartrate (Ambien) 5 mg HSPRN PRN ORAL Insomnia 10/05/18 14:30 10/12/18 14:29 Viktor Miranda MD Oct 08, 2018 13:24
[2018-10-08 15:55] VITALS: BP 154/59
[2018-10-08] MEDS: Enoxaparin 40mg Inj SUBQ SCH (16:44)
--- NOTE | 2018-10-08 17:36 | General Progress Note ---
Assessment/Plan Problem List: (1) BPH (benign prostatic hyperplasia) ICD Codes: N40.0 - Benign prostatic hyperplasia without lower urinary tract symptoms SNOMED: 780770012 (2) Facial abscess ICD Codes: L02.01 - Cutaneous abscess of face SNOMED: 677873510 (3) Renal insufficiency ICD Codes: N28.9 - Disorder of kidney and ureter, unspecified SNOMED: 896351019, 714146370 (4) Hypertension ICD Codes: I10 - Essential (primary) hypertension SNOMED: 56596119 Status: progressing Assessment/Plan facial celluitis and abscess s/p I&d improving dc planning low k.informed dr connors Subjective ROS Limited/Unobtainable: Yes Allergies: Coded Allergies: No Known Allergies (Unverified , 05/27/15) Objective Last 24 Hour Vital Signs Date Time Temp Pulse Resp B/P (MAP) Pulse Ox O2 Delivery O2 Flow Rate FiO2 10/08/18 15:55 98.5 86 19 154/59 (90) 97 86 10/08/18 13:25 159/69 10/08/18 12:00 97.8 72 14 147/69 (95) 99 72 10/08/18 10:03 73 16 Room Air 21 10/08/18 09:41 77 159/69 10/08/18 09:00 Room Air 10/08/18 08:00 97.6 83 16 166/64 (98) 100 83 10/08/18 06:02 159/69 10/08/18 04:00 98.5 77 18 159/69 (99) 99 10/08/18 02:16 75 16 Room Air 21 10/08/18 00:00 98.1 61 18 158/70 (99) 99 61 10/07/18 21:54 136/56 10/07/18 21:00 Room Air 10/07/18 20:00 97.7 74 18 136/56 (82) 99 Intake and Output 10/07/18 10/08/18 19:00 07:00 Intake Total 990 ml 625.000 ml Balance 990 ml 625.000 ml Intake Oral 480 ml 240 ml IV Total 510 ml 385.000 ml # Voids 3 1 Height (Feet): 6 Height (Inches): 3.00 Weight (Pounds): 190 Neck: supple Cardiovascular: normal rate Respiratory/Chest: lungs clear Abdomen: soft Hadadz,Ali MD Oct 08, 2018 17:36
--- NOTE | 2018-10-08 19:14 | Cardiology Report ---
APPROVED REPORT EKG Measurement Heart [id number] Normal sinus rhythm Normal ECG
[2018-10-08 20:00] VITALS: BP 146/72
[2018-10-08] MEDS: Vancomycin 1.25mg/D5W 275ml IVPB SCH ×2 (20:00)
[2018-10-08] MEDS ORDERED: Vancomycin 1gm/D5W 275ml IVPB SCH ×2 (22:00)
[2018-10-08] MEDS: Tamsulosin 0.4mg cap ORAL SCH (22:35)
[2018-10-09] VITALS: BP 157/76
[2018-10-09 04:00] VITALS: BP 150/82
[2018-10-09] MEDS: Meropenem 500 MG in NS 55 ML IVPB SCH (06:01)
[2018-10-09] MEDS: HydrALAZINE 50mg tab ORAL SCH (06:01)
[2018-10-09] MEDS: Insulin NPH SUBQ SCH (06:02)
[2018-10-09] MEDS: NovoLOG Insulin Flexpen SUBQ SCH ×2 (06:03)
--- NOTE | 2018-10-09 06:27 | General Progress Note ---
Assessment/Plan Problem List: (1) Mastoiditis of right side ICD Codes: H70.91 - Unspecified mastoiditis, right ear SNOMED: 84725173 (2) Hypertension ICD Codes: I10 - Essential (primary) hypertension SNOMED: 00728818 (3) UTI (urinary tract infection) ICD Codes: N39.0 - Urinary tract infection, site not specified SNOMED: 11638606 Qualifiers: Qualified Codes: N39.0 - Urinary tract infection, site not specified (4) Diabetes ICD Codes: E11.9 - Type 2 diabetes mellitus without complications SNOMED: 77399263 Assessment/Plan continue Novolog 4 units ac itd continue NPH 4 units bid continue NISS ac / hs Subjective Allergies: Coded Allergies: No Known Allergies (Unverified , 05/27/15) All Systems: reviewed and negative except above Subjective events noted Item Value Date Time Bedside Blood Glucose 189 mg/dl H 10/09/18 0603 Bedside Blood Glucose 78 mg/dl 10/08/18 2100 Bedside Blood Glucose 253 mg/dl H 10/08/18 1646 Bedside Blood Glucose 196 mg/dl H 10/08/18 1150 Bedside Blood Glucose 196 mg/dl H 10/08/18 0630 Objective Last 24 Hour Vital Signs Date Time Temp Pulse Resp B/P (MAP) Pulse Ox O2 Delivery O2 Flow Rate FiO2 10/09/18 06:01 150/82 10/09/18 04:00 97.4 83 20 150/82 (104) 97 10/09/18 00:00 97.7 75 20 157/76 (103) 98 10/08/18 22:35 146/72 10/08/18 21:00 Room Air 10/08/18 20:00 98.1 78 20 146/72 (96) 97 10/08/18 19:40 67 18 Room Air 21 10/08/18 15:55 98.5 86 19 154/59 (90) 97 86 10/08/18 13:25 159/69 10/08/18 12:00 97.8 72 14 147/69 (95) 99 72 10/08/18 10:03 73 16 Room Air 21 10/08/18 09:41 77 159/69 10/08/18 09:00 Room Air 10/08/18 08:00 97.6 83 16 166/64 (98) 100 83 Intake and Output 10/08/18 10/09/18 18:59 06:59 Intake Total 240 ml Balance 240 ml Intake Oral 240 ml # Voids 2 # Bowel Movements 1 Laboratory Tests 10/08/18 14:30: Stool Occult Blood [Pending] 10/08/18 19:20: Vancomycin Level Trough 16.2H Height (Feet): 6 Height (Inches): 3.00 Weight (Pounds): 190 General Appearance: no apparent distress Neck: normal alignment Cardiovascular: normal rate Respiratory/Chest: lungs clear Abdomen: normal bowel sounds Pelvis: normal external exam Objective Current Medications Medications (Trade) Dose Ordered Sig/Mayank Route PRN Reason Start Time Stop Time Status Last Admin Dose Admin Acetaminophen (Tylenol) 650 mg Q4H PRN ORAL Mild Pain (Pain Scale 1-3) 10/05/18 14:30 11/04/18 14:29 Albuterol/ Ipratropium (Albuterol/ Ipratropium) 3 ml Q6H PRN HHN Shortness of Breath 10/05/18 15:30 10/10/18 15:29 Amlodipine Besylate (Norvasc) 10 mg DAILY ORAL 10/07/18 09:00 11/06/18 08:59 10/08/18 09:41 Dextrose (Dextrose 50%) 25 ml Q30M PRN IV Hypoglycemia 10/07/18 07:00 11/06/18 06:59 Dextrose (Dextrose 50%) 50 ml Q30M PRN IV Hypoglycemia 10/07/18 07:00 11/06/18 06:59 Diphenhydramine HCl (Benadryl) 25 mg Q6H PRN ORAL Itching/Pruritis 10/05/18 14:30 11/04/18 14:29 Docusate Sodium (Colace) 100 mg TID ORAL 10/06/18 18:00 11/04/18 20:59 10/08/18 16:48 Enoxaparin Sodium (Lovenox) 40 mg Q24H SUBQ 10/07/18 16:00 11/06/18 15:59 10/08/18 16:44 Famotidine (Pepcid) 40 mg DAILY ORAL 10/06/18 09:00 11/05/18 08:59 10/08/18 09:41 Hydralazine HCl (Apresoline) 50 mg Q8HR ORAL 10/06/18 22:00 11/05/18 20:59 10/09/18 06:01 Insulin Aspart (NovoLOG) BEFORE MEALS AND HS SUBQ 10/07/18 11:30 11/06/18 11:29 10/09/18 06:03 Insulin Aspart (NovoLOG) 4 units NOVOTIAC SUBQ 10/07/18 11:50 11/06/18 11:49 10/09/18 06:03 Insulin Human NPH (Humulin N) 4 units PRE BFAST AND DINNER SUBQ 10/05/18 16:30 11/04/18 16:29 10/09/18 06:02 Lorazepam (Ativan) 1 mg Q4H PRN ORAL For Anxiety 10/05/18 14:30 10/12/18 14:29 Meropenem 500 mg/ Sodium Chloride 55 ml @ 110 mls/hr EVERY 8 HOURS IVPB 10/07/18 14:00 10/12/18 13:59 10/09/18 06:01 Morphine Sulfate (Morphine Sulfate) 2 mg Q6H PRN IVP Moderate Pain (Pain Scale 4-6) 10/05/18 14:30 10/12/18 14:29 Ondansetron HCl (Zofran) 4 mg Q6H PRN IVP Nausea & Vomiting 10/05/18 14:30 11/04/18 14:29 Polyethylene Glycol (Miralax) 17 gm DAILY PRN ORAL Constipation 10/08/18 08:30 11/07/18 08:29 10/08/18 09:42 Potassium Chloride (K-Dur) 40 meq TWICE A DAY ORAL 10/07/18 18:00 11/06/18 17:59 10/08/18 16:48 Tamsulosin HCl (Flomax) 0.4 mg BEDTIME ORAL 10/06/18 21:00 11/05/18 20:59 10/08/18 22:35 Vancomycin HCl (Vanco rx to dose) 1 ea DAILY PRN MISC Per rx protocol 10/05/18 18:00 11/04/18 17:59 Vancomycin HCl 1 gm/Dextrose 275 ml @ 183.708 mls/hr Q24H IVPB 10/08/18 22:00 10/13/18 21:59 10/08/18 22:35 Zolpidem Tartrate (Ambien) 5 mg HSPRN PRN ORAL Insomnia 10/05/18 14:30 10/12/18 14:29 Pj Stuart MD Oct 09, 2018 06:27
[2018-10-09 08:00] VITALS: BP 141/62
[2018-10-09] MEDS: Docusate 100mg cap ORAL SCH (08:37)
[2018-10-09 10:46] LABS: BASOPHILS % (AUTO) 0.8 % (0.0-2.0); EOSINOPHILS % (AUTO) 3.1 % (0.0-3.0); HEMATOCRIT 31.1 % (42.0-52.0); LYMPHOCYTES % (AUTO) 19.2 % (20.0-45.0); MEAN CORPUSCULAR VOLUME 88 FL (80-99); NEUTROPHILS % (AUTO) 61.9 % (45.0-75.0); PLATELET COUNT 218 K/UL (150-450); RED BLOOD COUNT 3.53 M/UL (4.70-6.10); RED CELL DISTRIBUTION WIDTH 13.9 % (11.6-14.8)
[2018-10-09 11:14] LABS: ANION GAP 7 mmol/L (5-15); BLOOD UREA NITROGEN 16 mg/dL (7-18); CALCIUM 8.3 MG/DL (8.5-10.1); CARBON DIOXIDE 29 MMOL/L (21-32); CHLORIDE 104 MMOL/L (98-107); CREATININE 1.6 MG/DL (0.55-1.30); POTASSIUM 4.4 MMOL/L (3.5-5.1); SODIUM 140 MMOL/L (136-145)
[2018-10-09 11:24] LABS: PHOSPHORUS 2.8 MG/DL (2.5-4.9)
[2018-10-09 11:26] LABS: ALANINE AMINOTRANSFERASE 18 U/L (12-78); ALBUMIN 2.4 G/DL (3.4-5.0); ALBUMIN/GLOBULIN RATIO 0.6 (1.0-2.7); ALKALINE PHOSPHATASE 70 U/L (46-116); ASPARTATE AMINO TRANSFERASE 10 U/L (15-37); BILIRUBIN,TOTAL 0.2 MG/DL (0.2-1.0)
[2018-10-09 12:00] VITALS: BP 145/62
--- NOTE | 2018-10-09 12:08 | Infectious Diseases Prog Note ---
Assessment/Plan Assessment/Plan A: 1. Orbital cellulitis, likely dacryocystitis. MRSA in culture 2. E. coli ESBL bacteriuria 3. Diabetes mellitus. 4. Hypertension. 5. Chronic kidney disease. 6. Anemia. 7. BPH. P: Agree with discharge with PO Doxycycline X 7 days Case was D/W primary MD Subjective ROS Limited/Unobtainable: No Constitutional: Reports: no symptoms HEENT: Reports: no symptoms Gastrointestinal/Abdominal: Reports: no symptoms Genitourinary: Reports: no symptoms Allergies: Coded Allergies: No Known Allergies (Unverified , 05/27/15) Objective Vital Signs Last 24 Hour Vital Signs Date Time Temp Pulse Resp B/P (MAP) Pulse Ox O2 Delivery O2 Flow Rate FiO2 10/09/18 09:00 Room Air 10/09/18 08:38 97 150/82 10/09/18 08:00 97.1 86 14 141/62 (88) 97 10/09/18 07:45 97 16 Room Air 21 10/09/18 06:01 150/82 10/09/18 04:00 97.4 83 20 150/82 (104) 97 10/09/18 00:00 97.7 75 20 157/76 (103) 98 10/08/18 22:35 146/72 10/08/18 21:00 Room Air 10/08/18 20:00 98.1 78 20 146/72 (96) 97 10/08/18 19:40 67 18 Room Air 21 10/08/18 15:55 98.5 86 19 154/59 (90) 97 86 10/08/18 13:25 159/69 Height (Feet): 6 Height (Inches): 3.00 Weight (Pounds): 191 General Appearance: no acute distress HEENT: mucous membranes moist Respiratory/Chest: lungs clear Cardiovascular: normal rate Abdomen: soft, non tender Extremities: no edema Neurologic/Psychiatric: alert, responsive Laboratory Tests Test 10/08/18 14:30 10/08/18 19:20 10/09/18 10:05 Stool Occult Blood Negative (NEGATIVE) Vancomycin Level Trough 16.2 ug/mL (5.0-12.0) H White Blood Count 5.0 K/UL (4.8-10.8) Red Blood Count 3.53 M/UL (4.70-6.10) L Hemoglobin 10.0 G/DL (14.2-18.0) L Hematocrit 31.1 % (42.0-52.0) L Mean Corpuscular Volume 88 FL (80-99) Mean Corpuscular Hemoglobin 28.2 PG (27.0-31.0) Mean Corpuscular Hemoglobin Concent 32.0 G/DL (32.0-36.0) Red Cell Distribution Width 13.9 % (11.6-14.8) Platelet Count 218 K/UL (150-450) Mean Platelet Volume 7.4 FL (6.5-10.1) Neutrophils (%) (Auto) 61.9 % (45.0-75.0) Lymphocytes (%) (Auto) 19.2 % (20.0-45.0) L Monocytes (%) (Auto) 15.0 % (1.0-10.0) H Eosinophils (%) (Auto) 3.1 % (0.0-3.0) H Basophils (%) (Auto) 0.8 % (0.0-2.0) Sodium Level 140 MMOL/L (136-145) Potassium Level 4.4 MMOL/L (3.5-5.1) Chloride Level 104 MMOL/L (98-107) Carbon Dioxide Level 29 MMOL/L (21-32) Anion Gap 7 mmol/L (5-15) Blood Urea Nitrogen 16 mg/dL (7-18) Creatinine 1.6 MG/DL (0.55-1.30) H Estimat Glomerular Filtration Rate mL/min (>60) Glucose Level 237 MG/DL (74-106) H Calcium Level 8.3 MG/DL (8.5-10.1) L Phosphorus Level 2.8 MG/DL (2.5-4.9) Magnesium Level 2.0 MG/DL (1.8-2.4) Total Bilirubin 0.2 MG/DL (0.2-1.0) Aspartate Amino Transf (AST/SGOT) 10 U/L (15-37) L Alanine Aminotransferase (ALT/SGPT) 18 U/L (12-78) Alkaline Phosphatase 70 U/L (46-116) Total Protein 6.5 G/DL (6.4-8.2) Albumin 2.4 G/DL (3.4-5.0) L Globulin 4.1 g/dL Albumin/Globulin Ratio 0.6 (1.0-2.7) L Current Medications Medications (Trade) Dose Ordered Sig/Mayank Route PRN Reason Start Time Stop Time Status Last Admin Dose Admin Acetaminophen (Tylenol) 650 mg Q4H PRN ORAL Mild Pain (Pain Scale 1-3) 10/05/18 14:30 11/04/18 14:29 Albuterol/ Ipratropium (Albuterol/ Ipratropium) 3 ml Q6H PRN HHN Shortness of Breath 10/05/18 15:30 10/10/18 15:29 Amlodipine Besylate (Norvasc) 10 mg DAILY ORAL 10/07/18 09:00 11/06/18 08:59 10/09/18 08:38 Dextrose (Dextrose 50%) 25 ml Q30M PRN IV Hypoglycemia 10/07/18 07:00 11/06/18 06:59 Dextrose (Dextrose 50%) 50 ml Q30M PRN IV Hypoglycemia 10/07/18 07:00 11/06/18 06:59 Diphenhydramine HCl (Benadryl) 25 mg Q6H PRN ORAL Itching/Pruritis 10/05/18 14:30 11/04/18 14:29 Docusate Sodium (Colace) 100 mg TID ORAL 10/06/18 18:00 11/04/18 20:59 10/09/18 08:37 Enoxaparin Sodium (Lovenox) 40 mg Q24H SUBQ 10/07/18 16:00 11/06/18 15:59 10/08/18 16:44 Famotidine (Pepcid) 40 mg DAILY ORAL 10/06/18 09:00 11/05/18 08:59 10/09/18 08:37 Hydralazine HCl (Apresoline) 50 mg Q8HR ORAL 10/06/18 22:00 11/05/18 20:59 10/09/18 06:01 Insulin Aspart (NovoLOG) BEFORE MEALS AND HS SUBQ 10/07/18 11:30 11/06/18 11:29 10/09/18 06:03 Insulin Aspart (NovoLOG) 4 units NOVOTIAC SUBQ 10/07/18 11:50 11/06/18 11:49 10/09/18 06:03 Insulin Human NPH (Humulin N) 4 units PRE BFAST AND DINNER SUBQ 10/05/18 16:30 11/04/18 16:29 10/09/18 06:02 Lorazepam (Ativan) 1 mg Q4H PRN ORAL For Anxiety 10/05/18 14:30 10/12/18 14:29 Meropenem 500 mg/ Sodium Chloride 55 ml @ 110 mls/hr EVERY 8 HOURS IVPB 10/07/18 14:00 10/12/18 13:59 10/09/18 06:01 Morphine Sulfate (Morphine Sulfate) 2 mg Q6H PRN IVP Moderate Pain (Pain Scale 4-6) 10/05/18 14:30 10/12/18 14:29 Ondansetron HCl (Zofran) 4 mg Q6H PRN IVP Nausea & Vomiting 10/05/18 14:30 11/04/18 14:29 Polyethylene Glycol (Miralax) 17 gm DAILY PRN ORAL Constipation 10/08/18 08:30 11/07/18 08:29 10/08/18 09:42 Potassium Chloride (K-Dur) 40 meq TWICE A DAY ORAL 10/07/18 18:00 11/06/18 17:59 10/09/18 08:37 Tamsulosin HCl (Flomax) 0.4 mg BEDTIME ORAL 10/06/18 21:00 11/05/18 20:59 10/08/18 22:35 Vancomycin HCl (Vanco rx to dose) 1 ea DAILY PRN MISC Per rx protocol 10/05/18 18:00 11/04/18 17:59 Vancomycin HCl 1 gm/Dextrose 275 ml @ 183.708 mls/hr Q24H IVPB 10/08/18 22:00 10/13/18 21:59 10/08/18 22:35 Zolpidem Tartrate (Ambien) 5 mg HSPRN PRN ORAL Insomnia 10/05/18 14:30 10/12/18 14:29 Viktor Miranda MD Oct 09, 2018 12:08
[2018-10-09] MEDS ORDERED: Tubing IV Secondary IV ONE (12:47)
--- NOTE | 2018-10-09 16:09 | Nephrology Progress Note ---
Assessment/Plan Problem List: (1) Acute on chronic renal failure (2) Hypertension (3) BPH (benign prostatic hyperplasia) (4) Anemia (5) UTI (urinary tract infection) Assessment (1) Acute on chronic renal failure (2) Diabetic nephropathy (3) Anemia (4) BPH (benign prostatic hyperplasia) (5) UTI (urinary tract infection) Plan lab ok K and Mag supplement as needed flomax IV hydrate Antibiotics per ID reviewe 2D echo / SERGIO done previously monitor renal parameters and H&H Subjective ROS Limited/Unobtainable: No Interval Events/Complaints seen at 9.45 am Objective Objective Last 24 Hour Vital Signs Date Time Temp Pulse Resp B/P (MAP) Pulse Ox O2 Delivery O2 Flow Rate FiO2 10/09/18 12:00 97.1 76 16 145/62 (89) 96 10/09/18 09:00 Room Air 10/09/18 08:38 97 150/82 10/09/18 08:00 97.1 86 14 141/62 (88) 97 10/09/18 07:45 97 16 Room Air 21 10/09/18 06:01 150/82 10/09/18 04:00 97.4 83 20 150/82 (104) 97 10/09/18 00:00 97.7 75 20 157/76 (103) 98 10/08/18 22:35 146/72 10/08/18 21:00 Room Air 10/08/18 20:00 98.1 78 20 146/72 (96) 97 10/08/18 19:40 67 18 Room Air 21 Intake and Output 10/08/18 10/09/18 19:00 07:00 Intake Total 240 ml 785.000 ml Balance 240 ml 785.000 ml Intake Oral 240 ml 400 ml IV Total 385.000 ml # Voids 2 3 # Bowel Movements 1 Laboratory Tests 10/08/18 19:20: Vancomycin Level Trough 16.2H 10/09/18 10:05: White Blood Count 5.0, Red Blood Count 3.53L, Hemoglobin 10.0L, Hematocrit 31.1L , Mean Corpuscular Volume 88, Mean Corpuscular Hemoglobin 28.2, Mean Corpuscular Hemoglobin Concent 32.0, Red Cell Distribution Width 13.9, Platelet Count 218, Mean Platelet Volume 7.4, Neutrophils (%) (Auto) 61.9, Lymphocytes (% ) (Auto) 19.2L, Monocytes (%) (Auto) 15.0H, Eosinophils (%) (Auto) 3.1H, Basophils (%) (Auto) 0.8, Sodium Level 140, Potassium Level 4.4, Chloride Level 104, Carbon Dioxide Level 29, Anion Gap 7, Blood Urea Nitrogen 16, Creatinine 1.6H, Estimat Glomerular Filtration Rate , Glucose Level 237H, Calcium Level 8.3L, Phosphorus Level 2.8, Magnesium Level 2.0, Total Bilirubin 0.2, Aspartate Amino Transf (AST/SGOT) 10L, Alanine Aminotransferase (ALT/SGPT) 18, Alkaline Phosphatase 70, Total Protein 6.5, Albumin 2.4L, Globulin 4.1, Albumin/Globulin Ratio 0.6L Height (Feet): 6 Height (Inches): 3.00 Weight (Pounds): 191 General Appearance: no apparent distress Objective no change Rodrigue Mackenzie MD Oct 09, 2018 16:09
--- NOTE | 2018-10-09 17:37 | General Progress Note ---
Assessment/Plan Assessment/Plan Assess/Recs: # Anemia of chronic disease, due to underlying chronic medical issues, multifactorial --> Anemia workup has been ordered/reviewed --> No evidence of hemolysis is noted, peripheral smear has been reviewed. --> Hgb goal >7. Transfuse prn. --> Epogen or iron at this time is not particularly indicated --> Medications have been reviewed # Leukocytosis. Likely related to underlying infection versus reactive process --> have reviewed peripheral smear and bandemia/neutrophilia noted --> continue antibiotics if they have been started by ID team --> monitor for resolution --> if the wbc count has improved then say improved in the first line --> on abx as per id # UTI with sepsis --> management as per id. --> CT of abdomen pelvis without contrast read by radiology showed bladder thickening and possible cystitis prior admission --> as per id recs # MISAEL on ckd --> as per renal team # DM nephropathy # BPH # Hypokalemia --> replete with k as needed # Right eye swelling/id --> per id care # DC to snf The timing of this note does not necessarily reflect the time of the patient was seen. Greatly appreciate consultation! Subjective HEENT: Denies: no symptoms, eye pain, blurred vision, tearing, double vision, ear pain, ear discharge, nose pain, nose congestion, throat pain, throat swelling, mouth pain, mouth swelling, other Cardiovascular: Denies: no symptoms, chest pain, edema, irregular heart rate, lightheadedness, palpitations, syncope, other Respiratory: Denies: no symptoms, cough, orthopnea, shortness of breath, SOB with excertion, SOB at rest, sputum, stridor, wheezing, other Gastrointestinal/Abdominal: Denies: no symptoms, abdomen distended, abdominal pain, black stools, tarry stools, blood in stool, constipated, diarrhea, difficulty swallowing, nausea, poor appetite, poor fluid intake, rectal bleeding , vomiting, other Neurologic/Psychiatric: Denies: no symptoms, anxiety, depressed, emotional problems, headache, numbness, paresthesia, pre-existing deficit, seizure, tingling, tremors, weakness, other Endocrine: Denies: no symptoms, excessive sweating, flushing, intolerance to cold, intolerance to heat, increased hunger, increased thirst, increased urine, unexplained weight gain, unexplained weight loss, other Hematologic/Lymphatic: Denies: no symptoms, anemia, easy bleeding, easy bruising, other Allergies: Coded Allergies: No Known Allergies (Unverified , 05/27/15) Subjective 10/08: no events to report, no fevers or chills noted 10/09: no fevers, no events, stable for dc Objective Last 24 Hour Vital Signs Date Time Temp Pulse Resp B/P (MAP) Pulse Ox O2 Delivery O2 Flow Rate FiO2 10/09/18 12:00 97.1 76 16 145/62 (89) 96 10/09/18 09:00 Room Air 10/09/18 08:38 97 150/82 10/09/18 08:00 97.1 86 14 141/62 (88) 97 10/09/18 07:45 97 16 Room Air 21 10/09/18 06:01 150/82 10/09/18 04:00 97.4 83 20 150/82 (104) 97 10/09/18 00:00 97.7 75 20 157/76 (103) 98 10/08/18 22:35 146/72 10/08/18 21:00 Room Air 10/08/18 20:00 98.1 78 20 146/72 (96) 97 10/08/18 19:40 67 18 Room Air 21 Intake and Output 10/08/18 10/09/18 19:00 07:00 Intake Total 240 ml 785.000 ml Balance 240 ml 785.000 ml Intake Oral 240 ml 400 ml IV Total 385.000 ml # Voids 2 3 # Bowel Movements 1 Laboratory Tests 10/08/18 19:20: Vancomycin Level Trough 16.2H 10/09/18 10:05: White Blood Count 5.0, Red Blood Count 3.53L, Hemoglobin 10.0L, Hematocrit 31.1L , Mean Corpuscular Volume 88, Mean Corpuscular Hemoglobin 28.2, Mean Corpuscular Hemoglobin Concent 32.0, Red Cell Distribution Width 13.9, Platelet Count 218, Mean Platelet Volume 7.4, Neutrophils (%) (Auto) 61.9, Lymphocytes (% ) (Auto) 19.2L, Monocytes (%) (Auto) 15.0H, Eosinophils (%) (Auto) 3.1H, Basophils (%) (Auto) 0.8, Sodium Level 140, Potassium Level 4.4, Chloride Level 104, Carbon Dioxide Level 29, Anion Gap 7, Blood Urea Nitrogen 16, Creatinine 1.6H, Estimat Glomerular Filtration Rate , Glucose Level 237H, Calcium Level 8.3L, Phosphorus Level 2.8, Magnesium Level 2.0, Total Bilirubin 0.2, Aspartate Amino Transf (AST/SGOT) 10L, Alanine Aminotransferase (ALT/SGPT) 18, Alkaline Phosphatase 70, Total Protein 6.5, Albumin 2.4L, Globulin 4.1, Albumin/Globulin Ratio 0.6L Height (Feet): 6 Height (Inches): 3.00 Weight (Pounds): 191 General Appearance: no apparent distress EENT: TMs normal Neck: normal inspection Cardiovascular: regular rhythm Respiratory/Chest: no accessory muscle use Abdomen: no mass Extremities: normal inspection Edema: 1+ Leg (L), 1+ Leg (R) Edema: mild edema Neurologic: no motor/sensory deficits Objective ENT: dry mucus membranes Neck: limited range of motion Respiratory: decreased breath sounds Cardiovascular: normal peripheral pulses, rrr Gastrointestinal: normal bowel sounds, soft, tenderness - suprapubic Musculoskeletal: decreased range of motion Neurologic: normal inspection, alert, responsive Psychiatric: normal inspection Skin: normal inspection, normal color Cesar Singh MD Oct 09, 2018 17:37
--- NOTE | 2018-10-10 11:06 | Discharge Summary ---
Discharge Summary Discharge Summary _ DATE OF ADMISSION: 10/05/2018 DATE OF DISCHARGE: 10/09/2018 DISCHARGED BY: Dr. Aliyah Danielle CONSULTANTS: Dr. Cesar Stuart BRIEF HOSPITAL COURSE: Patient is an 88-year-old male, with medical history of hypertension, diabetes mellitus, chronic kidney disease and BPH, who presented to ED complaining of swelling and pain to his right eye. He denied any fever or chills. Symptoms were developing over the past 2 days. He denied any change in vision. Apparently, he had the same problem in the past and was supposed to follow-up with seal mixer for correction of tear duct problem. He never followed up. Patient denied chest pain, cough, nausea, vomiting, diarrhea, dysuria. There was no joint pain, no headache, no dyspnea. On evaluation at the ED, vital signs were stable. There was no fever. Ptosis. Hemoglobin was 10, hematocrit 31. Electrolytes were normal. Creatinine 1.9. Glucose 289. Urinalysis revealed 3+ leukocyte esterase, positive nitrite, 40- 60 urine WBC, 2-4 urine RBC. He was given vancomycin for facial abscess. Right medial eye was noted to have an abscess. Abscess was drained and packing placed. Cultures were sent. He was also given Rocephin for UTI. Patient was then admitted for abscess of the periorbital region, UTI and renal insufficiency. ID was consulted. Patient had a history of ESBL UTI in the past. Blood culture from the right eye showed staph aureus. Urine culture was growing gram- negative rods. He was given vancomycin and cefepime. Kidney function was monitored. Patient was given IV hydration. He was given Flomax. Kidney ultrasound done from previous admission showed nonobstructive nephropathy. Patient had history of diabetes mellitus. Blood glucose was monitored. He was given NPH 4 units twice daily. He was given NovoLog 4 units AC meals. Hemoglobin A1c 8.8. Anemia workup showed iron of 14, TIBC 177, % saturation of 8, ferritin 124. Patient with anemia of chronic disease. Stool OB negative. He did not require any blood transfusion. Hepatitis and HIV screen negative. He had episodes of hypokalemia and hypomagnesemia. He was given replacements. Urine culture showed growth of ESBL E. coli. Eye culture with MRSA. There was no fever and no leukocytosis. Patient was cleared for discharge back to [facility] to continue 7 more days of doxycycline. FINAL DIAGNOSES: Facial abscess status post incision and drainage at ED Right orbital cellulitis, likely dacryocystitis , with MRSA E. coli ESBL UTI Anemia of chronic disease Acute on chronic renal failure Diabetes with diabetic nephropathy BPH Hypokalemia Hypertension Hypomagnesemia DISPOSITION: DC back to [facility] DISCHARGE MEDICATIONS: Refer to Discharge Medication List. DISCHARGE INSTRUCTIONS: Follow-up in a week. I have been assigned to complete a discharge summary on this account, I was not involved with the patient's management. Ximena Portillo NP Oct 10, 2018 11:06
== END 2018-10-09 12:48 | DRG 121 ==
LOC: EDBD 09:56 → EMR 11:00 → 4E 11:13 → EDBEDREQ 11:50
PROC: 0H91XZZ Drainage of Face Skin, External Approach (ICD-10-PCS; principal; 2018-10-05)
DX: H05.011 Cellulitis of right orbit (principal); N17.9 Acute kidney failure, unspecified; N39.0 Urinary tract infection, site not specified; L02.01 Cutaneous abscess of face; H04.301 Unspecified dacryocystitis of right lacrimal passage; I12.9 Hypertensive chronic kidney disease with stage 1 through stage 4 chronic kidney disease, or unspecified chronic kidney disease; N18.9 Chronic kidney disease, unspecified; N40.1 Benign prostatic hyperplasia with lower urinary tract symptoms; F09 Unspecified mental disorder due to known physiological condition; K21.9 Gastro-esophageal reflux disease without esophagitis; E87.6 Hypokalemia; E83.42 Hypomagnesemia; D63.8 Anemia in other chronic diseases classified elsewhere; E11.22 Type 2 diabetes mellitus with diabetic chronic kidney disease; Z79.4 Long term (current) use of insulin; H70.91 Unspecified mastoiditis, right ear
CPT/HCPCS: 10060; 36415; 80048; 80053; 80061; 80202; 81003; 82270; 82550; 82607; 82728; 82746; 82962; 83036; 83540; 83550; 83605; 83615; 83735; 83880; 84100; 84165; 84443; 84484; 85007; 85025; 85044; 85060; 85384; 85610; 85730; 86140; 86703; 86705; 86709; 86803; 87070; 87081; 87086; 87181; 87205; 87340; 90471; 90715; 93005; 94664; 96361; 96365; 96368; 96372; 99285; J1815; J8499

== ENCOUNTER 2019-11-08 10:24 | Inpatient (IN) | payer MEDICARE ==
[~2019-11-08] VITALS: Ht 177.8 cm; Wt 90.7 kg
--- NOTE | 2019-11-08 10:40 | NUR ---
ED Nurse Note: Triage was done but no available room yet. Pt/EMS waiting outside ER waiting for room availability. ER MD and charge nurse aware.
--- NOTE | 2019-11-08 11:10 | NUR ---
ED Nurse Note: Pt still waiting for room availability. ER charge nurse and MD aware.
[2019-11-08] MEDS ORDERED: Vancomycin 1.5 GM in NS 275 ML IVPB ONE (11:15)
[2019-11-08] MEDS ORDERED: Cefepime HCl 2 GM in NS 110 ML IV ONE (11:15)
[2019-11-08] MEDS ORDERED: Azithromycin 500 MG in NS 275 ML IV ONE (11:15)
[2019-11-08 12:30] VITALS: BP 188/102
--- NOTE | 2019-11-08 12:30 | NUR ---
ED Nurse Note: Pt brought in by ambulance from [facility] d/t fever since this monring. Unknown how high temp is from staff or EMS. They report 98 on transfer. Pr reports weakness and "not feeling well." Pt is noted to have cough and some shortness of breath. Pt is labored and tachypneic @ 28. A+Ox4. Oral temp 99.5. Pt placed on monitored bed. BP elevated in the 170s systolic. All other vitals stable as documented.
--- NOTE | 2019-11-08 13:03 | Emergency Room Report ---
History of Present Illness General Chief Complaint: Fever Source: Patient, Medical Record Present Illness HPI 89-year-old male history of hypertension, history of diabetes presents with cough, fever x1 day no aggravating relieving factors severity is mild, constant he does endorse some shortness of breath no chest tightness, patient presents from a care home for COVID rule out Allergies: Coded Allergies: No Known Allergies (Unverified , 05/27/15) COVID-19 Screening Contact w/high risk pt: No Recent Travel to affected area: No Experienced COVID-19 symptoms?: Yes COVID-19 symptoms experienced: Fever (T>100.4F or >38C) Patient History Past Medical History: see triage record, old chart reviewed Reviewed Nursing Documentation: PMH: Agreed; PSxH: Agreed Nursing Documentation-PMH Hx Cardiac Problems: Yes Hx Hypertension: Yes Hx Diabetes: Yes Hx Cancer: No Hx Gastrointestinal Problems: No Hx Dialysis: No - Chronic Kidney Disease, UTI Hx Neurological Problems: No - difficulty in walking Review of Systems All Other Systems: negative except mentioned in HPI Physical Exam Vital Signs Date Time Temp Pulse Resp B/P (MAP) Pulse Ox O2 Delivery O2 Flow Rate FiO2 11/08/19 10:36 98.1 74 18 202/80 (120) Sp02 EP Interpretation: reviewed, abnormal - 94% General Appearance: well appearing, no apparent distress, alert Head: normocephalic, atraumatic Eyes: bilateral eye PERRL, bilateral eye EOMI ENT: uvula midline, moist mucus membranes Neck: supple, thyroid normal, supple/symm/no masses Respiratory: no respiratory distress, no retraction, no accessory muscle use Cardiovascular #1: normal peripheral pulses, regular rate, rhythm, no edema, no gallop, no murmur Gastrointestinal: non tender, soft, no guarding, no rebound Musculoskeletal: normal inspection Neurologic: alert, responsive Psychiatric: mood/affect normal Skin: no rash, warm/dry Medical Decision Making Diagnostic Impression: Primary Impression: Fever Qualified Codes: R50.9 - Fever, unspecified Additional Impressions: Suspected COVID-19 virus infection Pneumonia Qualified Codes: J18.9 - Pneumonia, unspecified organism UTI (urinary tract infection) Qualified Codes: N39.0 - Urinary tract infection, site not specified ER Course 89-year-old male presents with fever/chills differential diagnosis includes COVID, sepsis, UTI Patient given broad-spectrum antibiotics, Patient admitted to Dr. Miller for covid r/o Laboratory Tests Test 11/08/19 12:35 White Blood Count 5.5 K/UL (4.8-10.8) Red Blood Count 3.44 M/UL (4.70-6.10) L Hemoglobin 9.6 G/DL (14.2-18.0) L Hematocrit 29.0 % (42.0-52.0) L Mean Corpuscular Volume 84 FL (80-99) Mean Corpuscular Hemoglobin 27.8 PG (27.0-31.0) Mean Corpuscular Hemoglobin Concent 33.0 G/DL (32.0-36.0) Red Cell Distribution Width 12.2 % (11.6-14.8) Platelet Count 174 K/UL (150-450) Mean Platelet Volume 7.6 FL (6.5-10.1) Neutrophils (%) (Auto) % (45.0-75.0) Lymphocytes (%) (Auto) % (20.0-45.0) Monocytes (%) (Auto) % (1.0-10.0) Eosinophils (%) (Auto) % (0.0-3.0) Basophils (%) (Auto) % (0.0-2.0) Differential Total Cells Counted 100 Neutrophils % (Manual) 65 % (45-75) Lymphocytes % (Manual) 18 % (20-45) L Monocytes % (Manual) 16 % (1-10) H Eosinophils % (Manual) 0 % (0-3) Basophils % (Manual) 1 % (0-2) Band Neutrophils 0 % (0-8) Platelet Estimate Adequate Platelet Morphology Normal Hypochromasia 2+ Anisocytosis 1+ Urine Color Pale yellow Urine Appearance Cloudy Urine pH 6.5 (4.5-8.0) Urine Specific [place] 1.010 (1.005-1.035) Urine Protein 3+ (NEGATIVE) H Urine Glucose (UA) Negative (NEGATIVE) Urine Ketones Negative (NEGATIVE) Urine Blood 4+ (NEGATIVE) H Urine Nitrite Negative (NEGATIVE) Urine Bilirubin Negative (NEGATIVE) Urine Urobilinogen Normal MG/DL (0.0-1.0) Urine Leukocyte Esterase 3+ (NEGATIVE) H Urine RBC 2-4 /HPF (0 - 0) H Urine WBC 40-60 /HPF (0 - 0) H Urine Squamous Epithelial Cells Occasional /LPF Urine Bacteria Many /HPF (NONE) H Sodium Level 140 MMOL/L (136-145) Potassium Level 3.6 MMOL/L (3.5-5.1) Chloride Level 104 MMOL/L (98-107) Carbon Dioxide Level 27 MMOL/L (21-32) Anion Gap 9 mmol/L (5-15) Blood Urea Nitrogen 24 mg/dL (7-18) H Creatinine 2.5 MG/DL (0.55-1.30) H Estimated Glomerular Filtration Rate 29.6 mL/min (>60) Glucose Level 171 MG/DL (74-106) H Lactic Acid Level 0.70 mmol/L (0.4-2.0) Calcium Level 8.4 MG/DL (8.5-10.1) L Phosphorus Level 3.5 MG/DL (2.5-4.9) Magnesium Level 2.0 MG/DL (1.8-2.4) Total Bilirubin 0.3 MG/DL (0.2-1.0) Aspartate Amino Transferase (AST) 20 U/L (15-37) Alanine Aminotransferase (ALT) 17 U/L (12-78) Alkaline Phosphatase 73 U/L (46-116) Total Creatine Kinase 199 U/L (26-308) Creatine Kinase MB 0.9 NG/ML (0.0-3.6) Creatine Kinase MB Relative Index 0.4 Troponin I 0.062 ng/mL (0.000-0.056) Pro-B-Type Natriuretic Peptide 2085 pg/mL (0-125) H Total Protein 7.3 G/DL (6.4-8.2) Albumin 3.0 G/DL (3.4-5.0) L Globulin 4.3 g/dL Albumin/Globulin Ratio 0.7 (1.0-2.7) L Lipase 130 U/L (73-393) EKG Diagnostic Results EKG Time: 13:14 EP Interpretation: NSR, rate 80, QTc 459, no acute ST elevations, normal axis Rhythm Strip Diag. Results Rhythm Strip Time: 13:02 EP Interpretation: yes Rate: 82 Rhythm: NSR, no PVC's, no ectopy Chest X-Ray Diagnostic Results Chest X-Ray Diagnostic Results : Chest X-Ray Ordered: Yes # of Views/Limited/Complete: 1 View Indication: Shortness of Breath Interpretation: other - Bilateral infiltrates Impression: Other - Bilateral infiltrates Electronically Signed by: Kirk Lizama MD Last Vital Signs Date Time Temp Pulse Resp B/P (MAP) Pulse Ox O2 Delivery O2 Flow Rate FiO2 11/08/19 10:36 98.1 74 18 202/80 (120) Disposition: ADMITTED INPATIENT Condition: Stable Referrals: Aliyah Miller MD (PCP) Kirk Lizama MD Nov 08, 2019 13:03
[2019-11-08 13:14] LABS: ANION GAP 9 mmol/L (5-15); BLOOD UREA NITROGEN 24 mg/dL (7-18); CALCIUM 8.4 MG/DL (8.5-10.1); CARBON DIOXIDE 27 MMOL/L (21-32); CHLORIDE 104 MMOL/L (98-107); CREATININE 2.5 MG/DL (0.55-1.30); POTASSIUM 3.6 MMOL/L (3.5-5.1); SODIUM 140 MMOL/L (136-145)
[2019-11-08 13:17] LABS: HEMOGLOBIN 9.6 G/DL (14.2-18.0); MEAN CORPUSCULAR VOLUME 84 FL (80-99); PLATELET COUNT 174 K/UL (150-450); RED BLOOD COUNT 3.44 M/UL (4.70-6.10); RED CELL DISTRIBUTION WIDTH 12.2 % (11.6-14.8); WHITE BLOOD COUNT 5.5 K/UL (4.8-10.8)
[2019-11-08] MEDS ORDERED: AVODART0.5 MG ORAL (13:19)
[2019-11-08] MEDS ORDERED: NEXIUM20 MG ORAL (13:19)
[2019-11-08 13:23] LABS: APPEARANCE,URINE CLOUDY; BILIRUBIN, URINE NEGATIVE (NEGATIVE); COLOR,URINE PALE YELLOW; GLUCOSE, URINE (UA) NEGATIVE (NEGATIVE); KETONES,URINE NEGATIVE (NEGATIVE); LEUKOCYTE ESTERASE ,URINE 3+ (NEGATIVE); NITRITE,URINE NEGATIVE (NEGATIVE); PH,URINE 6.5 (4.5-8.0); PROTEIN,URINE 3+ (NEGATIVE); UROBILINOGEN,URINE NORMAL MG/DL (0.0-1.0)
[2019-11-08 13:27] LABS: ALANINE AMINOTRANSFERASE 17 U/L (12-78); ALBUMIN/GLOBULIN RATIO 0.7 (1.0-2.7); ALKALINE PHOSPHATASE 73 U/L (46-116); ASPARTATE AMINO TRANSFERASE 20 U/L (15-37); BILIRUBIN,TOTAL 0.3 MG/DL (0.2-1.0); CKMB 0.9 NG/ML (0.0-3.6); CREATINE KINASE 199 U/L (26-308); PHOSPHORUS 3.5 MG/DL (2.5-4.9)
--- NOTE | 2019-11-08 13:40 | NUR ---
ED Nurse Note: Rectal temp 101.3. ED MD aware.
--- NOTE | 2019-11-08 13:59 | Diagnostic Imaging Report ---
EXAM: XR Chest, 1 View CLINICAL HISTORY: COUGH TECHNIQUE: Frontal view of the chest. COMPARISON: No relevant prior studies available. FINDINGS: Lungs: Pulmonary vascular congestion. Pleural space: Unremarkable. No pneumothorax. Heart: Borderline cardiomegaly. Mediastinum: Once again, the aorta is tortuous, ectatic, and calcified. Bones/joints: Unremarkable. IMPRESSION: Borderline cardiomegaly with mild vascular congestion.
[2019-11-08 14:00] VITALS: BP 148/57
[2019-11-08 15:45] VITALS: BP 150/51
[2019-11-08 17:41] VITALS: BP 164/79
--- NOTE | 2019-11-08 19:08 | NUR ---
ED Nurse Note: Report given to BENOIT Fuller. Pt in stable condition. Food offered and given. ED PA said Okay to give food.
--- NOTE | 2019-11-08 19:11 | NUR ---
ED Nurse Note: Recieved report from BENOIT Muro. Patient in bed eating meal, no acute distress noted.
--- NOTE | 2019-11-08 20:02 | NUR ---
ED Nurse Note: Report given to BENOIT Baldwin in tele.
[2019-11-08 20:04] VITALS: BP 170/56
--- NOTE | 2019-11-08 20:10 | NUR ---
TRANSFER TO FLOOR: Patient transferred to telemetry as ordered, per ERMD. Report given to BENOIT Baldwin. Belongings given to BENOIT Baldwin with patient packet. Patient transported via gurney on ACLS protocol with wind field service manager accompanied by 2 RNs in stable condition.
[2019-11-08 20:30] VITALS: BP 158/60
--- NOTE | 2019-11-08 20:30 | NUR ---
NURSE NOTES: Received pt from ED via gurney. Pt transferred to [facility] without any incident. Received report from BENOIT Hicks. Pt is A/Ox3. [place] pt to room, unit and hospital policies. telemetry monitor is in placed, pt is NSR. IV site intact, asymptomatic and patent. Belongings list checked and signed. Bed is in the lowest position and locked. Call light and bedside table is within reach. No signs/symptoms of acute distress noted at this time. Will contact Dr. Miller for admission orders.
--- NOTE | 2019-11-08 21:05 | NUR ---
NURSE NOTES: Received admission orders from Dr. Miller. Will note and carry out.
[2019-11-08] MEDS ORDERED: D5 1/2NS 1,000 ML IV SCH (22:30)
[2019-11-08] MEDS: NovoLOG Insulin Flexpen SUBQ SCH (22:59)
[2019-11-08] MEDS ORDERED: HydrALAZINE 25mg tab ORAL SCH (23:00)
[2019-11-09] VITALS: BP 154/58
--- NOTE | 2019-11-09 03:29 | History and Physical Report ---
DATE OF ADMISSION: 11/08/2019 HISTORY OF PRESENT ILLNESS: The patient is admitted because of high fever at the [facility]. The patient had no respiratory symptoms. The patient also being admitted for renal failure, for elevated troponin as well as urinary tract infection. The patient has no shortness of breath. No nausea, vomiting, or diarrhea. No fever or chills. No abdominal pain. PAST MEDICAL HISTORY: Gastroesophageal reflux disease, organic brain syndrome, urinary retention, BPH, hypertension, NIDDM, and depression. PAST SURGICAL HISTORY: History of status post suprapubic catheter in the past. ALLERGIES: No known allergies. SOCIAL HISTORY: Denies smoking. Denies alcohol or drugs. FAMILY HISTORY: Noncontributory. REVIEW OF SYSTEMS: HEENT: Denies headaches. RESPIRATORY: Denies shortness of breath. Denies cough. CARDIOVASCULAR: Denies chest pain. Denies orthopnea. GASTROINTESTINAL: Denies nausea, vomiting, or diarrhea. EXTREMITIES: Denies pain. CENTRAL NERVOUS SYSTEM: Denies changes in speech pattern, however, is a poor historian. MEDICATIONS: Amlodipine, finasteride, Levemir, Starlix, omeprazole and Flomax. PHYSICAL EXAMINATION: VITAL SIGNS: Temperature 100.3, pulse 71, blood pressure 164/79. HEENT: PERRLA. NECK: Supple. No lymphadenopathy. CHEST: Clear to auscultation. CARDIOVASCULAR: Regular rate and rhythm. No murmurs or extra sounds. GASTROINTESTINAL: Soft, nontender, nondistended. No organomegaly. EXTREMITIES: No edema. Moves all four extremities. NEUROLOGIC: Sensory intact to light touch. Reflexes in both sides. Oriented to time x1. Dorsal pedis pulses present. LABORATORY DATA: WBC of 5.5, hemoglobin 9.6, platelet 174, blood sodium 140, potassium 3.6, BUN of 24, creatinine 3.5, troponin 0.062. ASSESSMENT AND PLAN: Elevated troponin, acute renal failure, urinary tract infection, had fever at the [facility]. I have consulted Dr. Westfall, Dr. Reed, Dr. Viktor Miranda, Dr. Mackenzie for the management of the above-mentioned abnormalities and symptoms. Antibiotics per Dr. Viktor Miranda. Need to rule out viral infection. The virus swabs were then sent according to the ER doctor is pending. Ali Oliva Miller DR: ALISE JOB#: [id number] CC:
[2019-11-09 04:00] VITALS: BP 142/67
[2019-11-09] MEDS: NovoLOG Insulin Flexpen SUBQ SCH ×4 (06:22→21:00)
--- NOTE | 2019-11-09 06:30 | Consultation ---
History of Present Illness General Chief Complaint: Fever Present Illness Allergies: Coded Allergies: No Known Allergies (Unverified , 05/27/15) Medication History Scheduled Amlodipine Besylate* (Amlodipine Besylate*), 10 MG ORAL DAILY, (Reported) Bethanechol Chl* (Bethanechol Chloride*), 25 MG ORAL THREE TIMES A DAY, ( Reported) Dutasteride (Avodart), 0.5 MG ORAL DAILY, (Reported) Esomeprazole Magnesium (Nexium), 20 MG ORAL DAILY, (Reported) Finasteride* (Proscar*), 5 MG ORAL DAILY, (Reported) Hydralazine Hcl* (Hydralazine Hcl*), 75 MG ORAL QAM AND AT BEDTIME, (Reported) Insulin Detemir (Levemir), 46 SUBQ EVERY MORNING , (Reported) Mirtazapine* (Mirtazapine*), 7.5 MG ORAL BEDTIME, (Reported) Nateglinide* (Starlix*), 120 MG ORAL THREE TIMES A DAY, (Reported) Omeprazole (Omeprazole), 20 MG ORAL am, (Reported) Tamsulosin Hcl (Tamsulosin Hcl*), 0.4 MG ORAL BEDTIME, (Reported) Patient History Healthcare decision maker Resuscitation status Full Code Advanced Directive on File Physical Exam Last 24 Hour Vital Signs Date Time Temp Pulse Resp B/P (MAP) Pulse Ox O2 Delivery O2 Flow Rate FiO2 11/09/19 04:00 97.3 86 19 142/67 (92) 95 11/09/19 03:39 83 11/09/19 00:00 99.1 86 20 154/58 (90) 94 11/08/19 23:39 90 11/08/19 22:49 161/60 11/08/19 21:53 Room Air 11/08/19 20:30 98.6 88 20 158/60 (92) 95 11/08/19 20:10 98.1 83 22 150/53 98 Room Air 11/08/19 20:04 98.1 86 21 170/56 97 Room Air 11/08/19 19:40 170/56 11/08/19 18:14 175/60 11/08/19 17:41 100.3 71 18 164/79 96 Room Air 11/08/19 15:45 79 18 150/51 95 Room Air 11/08/19 14:22 100.3 11/08/19 14:00 100.3 87 18 148/57 94 Room Air 11/08/19 12:30 99.5 83 18 188/102 97 Room Air 11/08/19 12:30 83 18 Room Air 11/08/19 10:36 98.1 74 18 202/80 (120) Intake and Output 11/08/19 11/09/19 19:00 07:00 Intake Total 0 ml Balance 0 ml Intake Oral 0 ml # Voids 1 2 # Bowel Movements 1 1 Laboratory Tests Test 11/08/19 12:35 White Blood Count 5.5 K/UL (4.8-10.8) Red Blood Count 3.44 M/UL (4.70-6.10) L Hemoglobin 9.6 G/DL (14.2-18.0) L Hematocrit 29.0 % (42.0-52.0) L Mean Corpuscular Volume 84 FL (80-99) Mean Corpuscular Hemoglobin 27.8 PG (27.0-31.0) Mean Corpuscular Hemoglobin Concent 33.0 G/DL (32.0-36.0) Red Cell Distribution Width 12.2 % (11.6-14.8) Platelet Count 174 K/UL (150-450) Mean Platelet Volume 7.6 FL (6.5-10.1) Neutrophils (%) (Auto) % (45.0-75.0) Lymphocytes (%) (Auto) % (20.0-45.0) Monocytes (%) (Auto) % (1.0-10.0) Eosinophils (%) (Auto) % (0.0-3.0) Basophils (%) (Auto) % (0.0-2.0) Differential Total Cells Counted 100 Neutrophils % (Manual) 65 % (45-75) Lymphocytes % (Manual) 18 % (20-45) L Monocytes % (Manual) 16 % (1-10) H Eosinophils % (Manual) 0 % (0-3) Basophils % (Manual) 1 % (0-2) Band Neutrophils 0 % (0-8) Platelet Estimate Adequate Platelet Morphology Normal Hypochromasia 2+ Anisocytosis 1+ Urine Color Pale yellow Urine Appearance Cloudy Urine pH 6.5 (4.5-8.0) Urine Specific [place] 1.010 (1.005-1.035) Urine Protein 3+ (NEGATIVE) H Urine Glucose (UA) Negative (NEGATIVE) Urine Ketones Negative (NEGATIVE) Urine Blood 4+ (NEGATIVE) H Urine Nitrite Negative (NEGATIVE) Urine Bilirubin Negative (NEGATIVE) Urine Urobilinogen Normal MG/DL (0.0-1.0) Urine Leukocyte Esterase 3+ (NEGATIVE) H Urine RBC 2-4 /HPF (0 - 0) H Urine WBC 40-60 /HPF (0 - 0) H Urine Squamous Epithelial Cells Occasional /LPF Urine Bacteria Many /HPF (NONE) H Sodium Level 140 MMOL/L (136-145) Potassium Level 3.6 MMOL/L (3.5-5.1) Chloride Level 104 MMOL/L (98-107) Carbon Dioxide Level 27 MMOL/L (21-32) Anion Gap 9 mmol/L (5-15) Blood Urea Nitrogen 24 mg/dL (7-18) H Creatinine 2.5 MG/DL (0.55-1.30) H Estimat Glomerular Filtration Rate 29.6 mL/min (>60) Glucose Level 171 MG/DL (74-106) H Lactic Acid Level 0.70 mmol/L (0.4-2.0) Calcium Level 8.4 MG/DL (8.5-10.1) L Phosphorus Level 3.5 MG/DL (2.5-4.9) Magnesium Level 2.0 MG/DL (1.8-2.4) Total Bilirubin 0.3 MG/DL (0.2-1.0) Aspartate Amino Transf (AST/SGOT) 20 U/L (15-37) Alanine Aminotransferase (ALT/SGPT) 17 U/L (12-78) Alkaline Phosphatase 73 U/L (46-116) Total Creatine Kinase 199 U/L (26-308) Creatine Kinase MB 0.9 NG/ML (0.0-3.6) Creatine Kinase MB Relative Index 0.4 Troponin I 0.062 ng/mL (0.000-0.056) Pro-B-Type Natriuretic Peptide 2085 pg/mL (0-125) H Total Protein 7.3 G/DL (6.4-8.2) Albumin 3.0 G/DL (3.4-5.0) L Globulin 4.3 g/dL Albumin/Globulin Ratio 0.7 (1.0-2.7) L Lipase 130 U/L (73-393) Microbiology Date/Time Source Procedure Growth Status 11/08/19 12:35 Urine,Clean Catch Urine Culture - Preliminary Gram Negative David Resulted 11/08/19 18:00 Rectum Received Height (Feet): 5 Height (Inches): 10.00 Weight (Pounds): 260 Medications Current Medications Medications (Trade) Dose Ordered Sig/Mayank Route PRN Reason Start Time Stop Time Status Last Admin Dose Admin Acetaminophen (Tylenol) 500 mg Q4H PRN ORAL Mild Pain/Temp >100.5 11/08/19 21:45 12/08/19 21:44 Amlodipine Besylate (Norvasc) 10 mg DAILY ORAL 11/09/19 09:00 12/09/19 08:59 Bethanechol Chloride (Urecholine) 25 mg THREE TIMES A DAY ORAL 11/09/19 09:00 12/09/19 08:59 Dextrose (Dextrose 50%) 25 ml Q30M PRN IV Hypoglycemia 11/08/19 21:45 02/06/20 21:44 Dextrose (Dextrose 50%) 50 ml Q30M PRN IV Hypoglycemia 11/08/19 21:45 02/06/20 21:44 Dextrose/Sodium Chloride 1,000 ml @ 50 mls/hr Q20H IV 11/08/19 22:30 12/08/19 22:29 11/08/19 22:44 Finasteride (Proscar) 5 mg DAILY ORAL 11/09/19 09:00 02/07/20 08:59 Hydralazine HCl (Apresoline) 25 mg Q4H PRN ORAL bp over 160 syst 11/08/19 22:30 02/06/20 22:29 Hydralazine HCl (Apresoline) 75 mg BEDTIME ORAL 11/08/19 23:00 02/07/20 22:59 11/08/19 22:49 Insulin Aspart (NovoLOG) BEFORE MEALS AND HS SUBQ 11/08/19 23:00 02/07/20 22:59 11/09/19 06:22 Insulin Detemir (Levemir) 20 units Q24H SUBQ 11/09/19 09:00 02/07/20 08:59 Mirtazapine (Remeron) 7.5 mg BEDTIME ORAL 11/08/19 23:00 02/06/20 22:59 11/08/19 22:47 Nateglinide (Starlix) 120 mg THREE TIMES A DAY ORAL 11/09/19 09:00 12/09/19 08:59 Pantoprazole (Protonix) 40 mg BID ORAL 11/09/19 09:00 12/09/19 08:59 Tamsulosin HCl (Flomax) 0.4 mg BEDTIME ORAL 11/09/19 21:00 12/09/19 20:59 Assessment/Plan Assessment/Plan: Hematology consultation REQ MD: Aliyah Miller RFC: Anemia eval DOS: 11/09/19 ID 89-year-old male sent in by nursing facility, I have seen him in the past, well known to me, patient was noted to have become febrile, is here for covid19 rule out. He was noted to have nonproductive cough as well as increased difficulty breathing. currently is on iso, is on mirtapazine. Allergies: No Known Allergies (Unverified , 05/27/15) Patient History Past Medical History: see triage record Reviewed Nursing Documentation: PMH: Agreed; PSxH: Agreed Nursing Documentation-PMH Past Medical History: No History, Except For Hx Cardiac Problems: Yes Hx Hypertension: Yes Hx Diabetes: Yes Hx Cancer: No Hx Gastrointestinal Problems: No Hx Dialysis: No - Chronic Kidney Disease, UTI Hx Neurological Problems: No ROS: limited - by poor historian PE vitals: noted ENT: dry mucus membranes Neck: limited range of motion Respiratory: decreased breath sounds Cardiovascular: normal peripheral pulses, rrr Gastrointestinal: normal bowel sounds, soft, tenderness - suprapubic Musculoskeletal: decreased range of motion Neurologic: normal inspection, alert, responsive Psychiatric: normal inspection Skin: normal inspection, normal color Labs: noted Assess/Recs: # Anemia of chronic disease (or of iron deficiency) due to underlying chronic medical issues, multifactorial --> Anemia workup has been ordered --> No evidence of hemolysis is noted, peripheral smear has been reviewed. --> Hgb goal >7. Transfuse prn. --> Epogen or iron at this time is not particularly indicated --> Medications have been reviewed # UTI with sepsis --> management as per id. --> CT of abdomen pelvis without contrast read by radiology showed bladder thickening and possible cystitis prior admission --> as per id recs # Fever with cough --> r/o covid --> iso --> as per id # MISAEL on ckd --> as per renal team # DM nephropathy # BPH # Hypokalemia --> replete with k as needed The timing of this note does not necessarily reflect the time of the patient was seen. Greatly appreciate consultation! Cesar Singh MD Nov 09, 2019 06:30
--- NOTE | 2019-11-09 06:45 | NUR ---
NURSE NOTES: Contacted [facility] multiple times for Pneumo/Influenza vaccination dates, but no one ever answered.
--- NOTE | 2019-11-09 07:50 | NUR ---
HAND-OFF: Report given to BENOIT Pina. Plan of care endorsed.
[2019-11-09 08:00] VITALS: BP 184/76
[2019-11-09 08:06] LABS: HEMATOCRIT 26.7 % (42.0-52.0); HEMOGLOBIN 8.9 G/DL (14.2-18.0); MEAN CORPUSCULAR VOLUME 85 FL (80-99); PLATELET COUNT 138 K/UL (150-450); RED BLOOD COUNT 3.15 M/UL (4.70-6.10); RED CELL DISTRIBUTION WIDTH 12.2 % (11.6-14.8); WHITE BLOOD COUNT 4.9 K/UL (4.8-10.8)
--- NOTE | 2019-11-09 08:09 | NUR ---
NURSE NOTES: Received report from Nicolasa Limon RN. Patient sitting HOB at 30 degrees, sleeping, respirations at 16 breaths per minute, on room air, bed in lowest position, call light within reach, television on, side rails up x 3, in no apparent distress.
[2019-11-09] MEDS ORDERED: Levemir Flexpen SUBQ SCH (09:00)
[2019-11-09] MEDS: Bethanechol 25mg Tab ORAL SCH ×3 (09:00→17:26)
[2019-11-09 09:07] LABS: % IRON SATURATION 10 % (15-50); IRON 20 ug/dL (50-175); TOTAL IRON BINDING CAPACITY 201 ug/dL (250-450)
[2019-11-09 09:11] LABS: ALANINE AMINOTRANSFERASE 18 U/L (12-78); ALBUMIN 2.7 G/DL (3.4-5.0); ALBUMIN/GLOBULIN RATIO 0.7 (1.0-2.7); ALKALINE PHOSPHATASE 56 U/L (46-116); ANION GAP 11 mmol/L (5-15); ASPARTATE AMINO TRANSFERASE 27 U/L (15-37); BILIRUBIN,TOTAL 0.3 MG/DL (0.2-1.0); BLOOD UREA NITROGEN 23 mg/dL (7-18); CALCIUM 8.1 MG/DL (8.5-10.1); CARBON DIOXIDE 26 MMOL/L (21-32); CHLORIDE 106 MMOL/L (98-107); CHOLESTEROL 120 MG/DL (< 200); CREATININE 2.4 MG/DL (0.55-1.30); FERRITIN 117 NG/ML (8-388); HDL CHOLESTEROL 44 MG/DL (40-60); POTASSIUM 3.4 MMOL/L (3.5-5.1); SODIUM 143 MMOL/L (136-145); TRIGLYCERIDES 52 MG/DL (30-150)
[2019-11-09] MEDS: Nateglinide 60mg tab ORAL SCH ×3 (09:16→17:26)
[2019-11-09 09:19] LABS: CREATINE KINASE 358 U/L (26-308); GAMMA GLUTAMYL TRANSPEPTIDASE 20 U/L (5-85); PHOSPHORUS 4.3 MG/DL (2.5-4.9)
[2019-11-09 12:00] VITALS: BP 151/72
[2019-11-09] MEDS: HydrALAZINE 25mg tab ORAL SCH ×2 (13:21→21:23)
[2019-11-09] MEDS: cefTRIAXone 1 GM in D5W 55 ML IVPB SCH (13:22)
--- NOTE | 2019-11-09 14:15 | Consultation ---
Consult Note Consult Note I am asked to evaluate the patient at the request of for renal failure His serum creatinine of 1.6 on October 09 has risen to 2.5 on admission yesterday November 07 Patient is known to me from his previous admissions Patient seen and examined Data reviewed Emergency room note: 89-year-old male history of hypertension, history of diabetes presents with cough, fever x1 day no aggravating relieving factors severity is mild, constant he does endorse some shortness of breath no chest tightness, patient presents from a intermediate for COVID rule out No Known Allergies (Unverified , 05/27/15) COVID-19 Screening Contact w/high risk pt: No Recent Travel to affected area: No Experienced COVID-19 symptoms?: Yes COVID-19 symptoms experienced: Fever (T>100.4F or >38C) Hx Cardiac Problems: Yes Hx Hypertension: Yes Hx Diabetes: Yes Hx Dialysis: No - Chronic Kidney Disease, UTI Hx Neurological Problems: No - difficulty in walking . Assessment/Plan Mr. Melton is admitted with pneumonia and UTI and exposure to COVID-19 virus From renal standpoint of view: Acute on chronic renal failure: Serum creatinine has risen from baseline of 1.6- 2.5 Diabetic nephropathy BPH Anemia Hypertension Suggestions: Slow hydration Flomax twice daily Antibiotics per ID Will review the 2D echocardiogram and ultrasound which was done previously Continue renal parameters Adjust blood pressure medication Avoid nephrotoxic's Per orders Rodrigue Mackenzie MD Nov 09, 2019 14:15
[2019-11-09] MEDS ORDERED: Iron Sucrose 200 MG in NS 110 ML IV SCH (15:30)
[2019-11-09 16:00] VITALS: BP 149/59
[2019-11-09] MEDS: Tamsulosin 0.4mg cap ORAL SCH (17:25)
[2019-11-09] MEDS: Docusate 100mg cap ORAL SCH (17:28)
--- NOTE | 2019-11-09 19:15 | Consultation ---
DATE OF CONSULTATION: 11/09/2019 INFECTIOUS DISEASES CONSULTATION CONSULTING PHYSICIAN: Viktor Miranda MD. REASON FOR CONSULTATION: UTI, rule out COVID-19. HISTORY OF PRESENT ILLNESS: The patient is an 89-year-old male who is a long-term resident admitted last night because of fever for one day. He has also coughing, had a low-grade fever in hospital with a maximum temperature of 100.3. PAST MEDICAL HISTORY: Significant for diabetes mellitus, hypertension, chronic kidney disease, BPH, anemia, depression, glaucoma of right eye, had history of admission to [facility] because of cystitis. ALLERGIES: No known drug allergies. MEDICATIONS: Getting Flomax, hydralazine, Levemir insulin, amlodipine, Starlix, finasteride, Protonix, mirtazapine, NovoLog insulin, get a dose of azithromycin and vancomycin in the ER. SOCIAL HISTORY: No history of alcohol, drug abuse, or smoking. Single. [facility] resident, has a son. REVIEW OF SYSTEMS: Fever. Denies any cough today. No nausea. No vomiting. No diarrhea. PHYSICAL EXAMINATION: VITAL SIGNS: Temperature 97.1, T-max 100.3, pulse 72, blood pressure is 184/76. GENERAL APPEARANCE: No acute distress, overweight, obese. HEAD AND NECK: There is some discharge in the right eye. HEART: Normal rate. LUNGS: Clear. ABDOMEN: Soft and nontender. EXTREMITIES: No edema. NEUROLOGIC: Awake, alert, responsive, oriented. LABORATORY AND DIAGNOSTIC DATA: WBC 4.9, hemoglobin 8.9, hematocrit 26.7, platelets 138. Sodium 143, potassium 3.4, chloride 106, bicarb 26, BUN 23, creatinine 2.4, glucose 154. Hemoglobin A1c 7.5. Lactic acid is 0.7. Urine culture growing gram-negative rods. UA showed wbc's of 40 to 60. IMPRESSION: Bacteriuria and pyuria, likely secondary to UTI, had low-grade fever, want to rule out COVID-19, diabetes mellitus, hypertension, anemia, right eye glaucoma. RECOMMENDATION: We will start the patient on ceftriaxone. We will follow up the COVID-19 test. We will follow up blood culture, urine culture, MRSA culture . At the end of my exam, I thank Dr. Miller, for involving me in the care of this patient. Viktor Miranda M.D. DR: Munir JOB#: [id number] CC:
--- NOTE | 2019-11-09 19:46 | NUR ---
HAND-OFF: Report given to Susanna Kelsey RN. Patient sitting up in bed, awake and alert, watching television, bed in lowest position, call light within reach, SCD's in place, side rails up x3, on room air saturating at 96 percent, no c/o pain, no SOB, IV patent in right wrist 20 gauge running 1/2NS@75 and left wrist 20 gauge saline locked. Addendum: 11/09/19 at 6 by JEAN-CLAUDE DELGADO RN Condom catheter in place.
--- NOTE | 2019-11-09 19:50 | NUR ---
NURSE NOTES: Recieved pt from BENOIT Perez. Pt asleep but easy to arrouse. Bed in lowest position. Call light within reach. Will continue to monitor.
[2019-11-09 20:00] VITALS: BP 160/70
--- NOTE | 2019-11-09 20:29 | Consultation ---
DATE OF CONSULTATION: 11/09/2019 PULMONARY CONSULTATION HISTORY OF PRESENT ILLNESS: This is an 89-year-old male who is a longterm resident. He was brought to the hospital with fever. The patient has a history of BPH, chronic retention of urine, status post suprapubic catheter, diabetes mellitus, depression, GERD, organic brain syndrome. PAST SURGICAL HISTORY: None reported. HOME MEDICATIONS: Include Norvasc, bethanechol, Avodart, Nexium, Proscar, hydralazine, Levemir, mirtazapine, Starlix, omeprazole, and Flomax. REVIEW OF SYSTEMS: Unreliable. PHYSICAL EXAMINATION: GENERAL: Reveals elderly male. HEENT: Unremarkable. CHEST: Clear breath sounds. ABDOMEN: Soft. NEUROLOGIC: Nonfocal. LABORATORY AND DIAGNOSTIC DATA: Lab testing shows hemoglobin 8.9, creatinine 2.4. Hemoglobin A1c 7.5. X-ray chest shows cardiomegaly, vascular congestion. IMPRESSION: 1. Fever. 2. Possible COVID-19 pneumonia. 3. Multiple medical problems. 4. DISCUSSION: Admitted to the hospital. Continue current medications and care. Broad spectrum antibiotics. 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 Await COVID-19. We will follow. Bill Westfall M.D. DR: Jose JOB#: [id number] CC:
--- NOTE | 2019-11-09 20:46 | Cardiology Progress Note ---
Assessment/Plan Assessment/Plan The patient is seen and examined, full consult note is dictated. Objective Last 24 Hour Vital Signs Date Time Temp Pulse Resp B/P (MAP) Pulse Ox O2 Delivery O2 Flow Rate FiO2 11/09/19 16:00 79 11/09/19 16:00 98.9 72 20 149/59 (89) 97 11/09/19 13:21 151/72 11/09/19 12:00 99.4 74 20 151/72 (98) 97 11/09/19 12:00 73 11/09/19 09:16 72 184/76 11/09/19 09:00 Room Air 11/09/19 08:00 72 11/09/19 08:00 97.1 82 22 184/76 (112) 95 11/09/19 04:00 97.3 86 19 142/67 (92) 95 11/09/19 03:39 83 11/09/19 00:00 99.1 86 20 154/58 (90) 94 11/08/19 23:39 90 11/08/19 22:49 161/60 11/08/19 21:53 Room Air Intake and Output 11/08/19 11/09/19 19:00 07:00 Intake Total 0 ml 50 ml Balance 0 ml 50 ml Intake Oral 0 ml IV Total 50 ml # Voids 1 2 # Bowel Movements 1 1 Laboratory Tests Test 11/09/19 04:26 11/09/19 05:55 Urine Random Sodium 90 mmol/L (20-110) White Blood Count 4.9 K/UL (4.8-10.8) Red Blood Count 3.15 M/UL (4.70-6.10) L Hemoglobin 8.9 G/DL (14.2-18.0) L Hematocrit 26.7 % (42.0-52.0) L Mean Corpuscular Volume 85 FL (80-99) Mean Corpuscular Hemoglobin 28.4 PG (27.0-31.0) Mean Corpuscular Hemoglobin Concent 33.5 G/DL (32.0-36.0) Red Cell Distribution Width 12.2 % (11.6-14.8) Platelet Count 138 K/UL (150-450) L Mean Platelet Volume 7.1 FL (6.5-10.1) Neutrophils (%) (Auto) % (45.0-75.0) Lymphocytes (%) (Auto) % (20.0-45.0) Monocytes (%) (Auto) % (1.0-10.0) Eosinophils (%) (Auto) % (0.0-3.0) Basophils (%) (Auto) % (0.0-2.0) Differential Total Cells Counted 100 Neutrophils % (Manual) 65 % (45-75) Lymphocytes % (Manual) 24 % (20-45) Monocytes % (Manual) 11 % (1-10) H Eosinophils % (Manual) 0 % (0-3) Basophils % (Manual) 0 % (0-2) Band Neutrophils 0 % (0-8) Platelet Estimate Decreased L Platelet Morphology Normal Hypochromasia 3+ Anisocytosis 1+ D-Dimer 1.23 mg/L FEU (0.00-0.49) H Sodium Level 143 MMOL/L (136-145) Potassium Level 3.4 MMOL/L (3.5-5.1) L Chloride Level 106 MMOL/L (98-107) Carbon Dioxide Level 26 MMOL/L (21-32) Anion Gap 11 mmol/L (5-15) Blood Urea Nitrogen 23 mg/dL (7-18) H Creatinine 2.4 MG/DL (0.55-1.30) H Estimat Glomerular Filtration Rate 31.0 mL/min (>60) Glucose Level 154 MG/DL (74-106) H Hemoglobin A1c 7.5 % (4.3-6.0) H Lactic Acid Level 0.70 mmol/L (0.4-2.0) Uric Acid 5.4 MG/DL (2.6-7.2) Calcium Level 8.1 MG/DL (8.5-10.1) L Phosphorus Level 4.3 MG/DL (2.5-4.9) Magnesium Level 1.8 MG/DL (1.8-2.4) Iron Level 20 ug/dL (50-175) L Total Iron Binding Capacity 201 ug/dL (250-450) L Percent Iron Saturation 10 % (15-50) L Unsaturated Iron Binding 181 ug/dL (112-346) Ferritin 117 NG/ML (8-388) Total Bilirubin 0.3 MG/DL (0.2-1.0) Gamma Glutamyl Transpeptidase 20 U/L (5-85) Aspartate Amino Transf (AST/SGOT) 27 U/L (15-37) Alanine Aminotransferase (ALT/SGPT) 18 U/L (12-78) Alkaline Phosphatase 56 U/L (46-116) Lactate Dehydrogenase 201 U/L (81-234) Total Creatine Kinase 358 U/L (26-308) H C-Reactive Protein, Quantitative 1.6 mg/dL (0.00-0.90) H Pro-B-Type Natriuretic Peptide 2064 pg/mL (0-125) H Total Protein 6.6 G/DL (6.4-8.2) Albumin 2.7 G/DL (3.4-5.0) L Globulin 3.9 g/dL Albumin/Globulin Ratio 0.7 (1.0-2.7) L Triglycerides Level 52 MG/DL (30-150) Cholesterol Level 120 MG/DL (< 200) LDL Cholesterol 59 mg/dL (<100) HDL Cholesterol 44 MG/DL (40-60) Cholesterol/HDL Ratio 2.7 (3.3-4.4) L Vitamin B12 Level 310 PG/ML (193-986) Folate 18.5 NG/ML (8.6-58.9) Thyroid Stimulating Hormone (TSH) 0.998 uiU/mL (0.358-3.740) Microbiology Date/Time Source Procedure Growth Status 11/08/19 12:35 Urine,Clean Catch Urine Culture - Preliminary Gram Negative David Resulted 11/08/19 18:00 Rectum Received Dick Payan MD Nov 09, 2019 20:46
[2019-11-09] MEDS ORDERED: Tamsulosin 0.4mg cap ORAL SCH (21:00)
[2019-11-09] MEDS ORDERED: HydrALAZINE 25mg tab ORAL SCH (21:00)
--- NOTE | 2019-11-09 22:12 | General Progress Note ---
Assessment/Plan Problem List: (1) Sepsis ICD Codes: A41.9 - Sepsis, unspecified organism SNOMED: 64425512 (2) Diabetes ICD Codes: E11.9 - Type 2 diabetes mellitus without complications SNOMED: 22970200 (3) BPH (benign prostatic hyperplasia) ICD Codes: N40.0 - Benign prostatic hyperplasia without lower urinary tract symptoms SNOMED: 883176267 (4) Anemia ICD Codes: D64.9 - Anemia, unspecified SNOMED: 912949410 (5) Acute on chronic renal failure ICD Codes: N17.9 - Acute kidney failure, unspecified; N18.9 - Chronic kidney disease, unspecified SNOMED: 287122398 (6) Fever ICD Codes: R50.9 - Fever, unspecified SNOMED: 340963063 Qualifiers: Qualified Codes: R50.9 - Fever, unspecified (7) Suspected COVID-19 virus infection ICD Codes: Z20.828 - Contact with and (suspected) exposure to other viral communicable diseases SNOMED: 256134941 (8) UTI (urinary tract infection) ICD Codes: N39.0 - Urinary tract infection, site not specified SNOMED: 91435534 Qualifiers: Qualified Codes: N39.0 - Urinary tract infection, site not specified (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 SNOMED: 09562082, 373416792 (10) Hypertension ICD Codes: I10 - Essential (primary) hypertension SNOMED: 25042482 Status: progressing Assessment/Plan: low k azotemia dm worsening anemia sepsis afebrile abx pe rid Subjective ROS Limited/Unobtainable: Yes Allergies: Coded Allergies: No Known Allergies (Unverified , 05/27/15) Objective Last 24 Hour Vital Signs Date Time Temp Pulse Resp B/P (MAP) Pulse Ox O2 Delivery O2 Flow Rate FiO2 11/09/19 21:23 160/70 11/09/19 20:00 99.1 69 22 160/70 (100) 98 11/09/19 16:00 79 11/09/19 16:00 98.9 72 20 149/59 (89) 97 11/09/19 13:21 151/72 11/09/19 12:00 99.4 74 20 151/72 (98) 97 4/26/20 12:00 73 11/09/19 09:16 72 184/76 11/09/19 09:00 Room Air 11/09/19 08:00 72 11/09/19 08:00 97.1 82 22 184/76 (112) 95 11/09/19 04:00 97.3 86 19 142/67 (92) 95 11/09/19 03:39 83 11/09/19 00:00 99.1 86 20 154/58 (90) 94 11/08/19 23:39 90 11/08/19 22:49 161/60 Intake and Output 11/08/19 11/09/19 19:00 07:00 Intake Total 0 ml 50 ml Balance 0 ml 50 ml Intake Oral 0 ml IV Total 50 ml # Voids 1 2 # Bowel Movements 1 1 Laboratory Tests 11/09/19 04:26: Urine Random Sodium 90 11/09/19 05:55: White Blood Count 4.9, Red Blood Count 3.15L, Hemoglobin 8.9L, Hematocrit 26.7L , Mean Corpuscular Volume 85, Mean Corpuscular Hemoglobin 28.4, Mean Corpuscular Hemoglobin Concent 33.5, Red Cell Distribution Width 12.2, Platelet Count 138L, Mean Platelet Volume 7.1, Neutrophils (%) (Auto) , Lymphocytes (%) ( Auto) , Monocytes (%) (Auto) , Eosinophils (%) (Auto) , Basophils (%) (Auto) , Differential Total Cells Counted 100, Neutrophils % (Manual) 65, Lymphocytes % ( Manual) 24, Monocytes % (Manual) 11H, Eosinophils % (Manual) 0, Basophils % ( Manual) 0, Band Neutrophils 0, Platelet Estimate DecreasedL, Platelet Morphology Normal, Hypochromasia 3+, Anisocytosis 1+, D-Dimer 1.23H, Sodium Level 143, Potassium Level 3.4L, Chloride Level 106, Carbon Dioxide Level 26, Anion Gap 11, Blood Urea Nitrogen 23H, Creatinine 2.4H, Estimat Glomerular Filtration Rate 31.0, Glucose Level 154H, Hemoglobin A1c 7.5H, Lactic Acid Level 0.70, Uric Acid 5.4, Calcium Level 8.1L, Phosphorus Level 4.3, Magnesium Level 1.8, Iron Level 20L, Total Iron Binding Capacity 201L, Percent Iron Saturation 10L, Unsaturated Iron Binding 181, Ferritin 117, Total Bilirubin 0.3 , Gamma Glutamyl Transpeptidase 20, Aspartate Amino Transf (AST/SGOT) 27, Alanine Aminotransferase (ALT/SGPT) 18, Alkaline Phosphatase 56, Lactate Dehydrogenase 201, Total Creatine Kinase 358H, C-Reactive Protein, Quantitative 1.6H, Pro-B-Type Natriuretic Peptide 2064H, Total Protein 6.6, Albumin 2.7L, Globulin 3.9, Albumin/Globulin Ratio 0.7L, Triglycerides Level 52, Cholesterol Level 120, LDL Cholesterol 59, HDL Cholesterol 44, Cholesterol/HDL Ratio 2.7L, Vitamin B12 Level 310, Folate 18.5, Thyroid Stimulating Hormone (TSH) 0.998 11/09/19 21:30: Troponin I [Pending] Height (Feet): 5 Height (Inches): 10.00 Weight (Pounds): 260 Aliyah Miller MD Nov 09, 2019 22:12
--- NOTE | 2019-11-09 22:13 | NUR ---
NURSE NOTES:MORENA COSTELLO CALLED WITH [facility]OP 0.100, RN NOTIFIED AND WILL CALL DR BISHOP
--- NOTE | 2019-11-09 22:19 | NUR ---
NURSE NOTES: Called and left a message with Dr. Payan regarding pts increasing troponin level. Awaiting call back.
[2019-11-09] MEDS ORDERED: NovoLOG Insulin Flexpen SUBQ SCH (23:00)
[2019-11-09] MEDS: HydrALAZINE 25mg tab ORAL PRN (23:27)
--- NOTE | 2019-11-09 23:50 | Cardiology Progress Note ---
Assessment/Plan Assessment/Plan The patient is seen and examined, full consult note is dictated. Objective Last 24 Hour Vital Signs Date Time Temp Pulse Resp B/P (MAP) Pulse Ox O2 Delivery O2 Flow Rate FiO2 11/09/19 23:27 171/72 11/09/19 21:23 160/70 11/09/19 20:00 99.1 69 22 160/70 (100) 98 11/09/19 16:00 79 11/09/19 16:00 98.9 72 20 149/59 (89) 97 11/09/19 13:21 151/72 11/09/19 12:00 99.4 74 20 151/72 (98) 97 11/09/19 12:00 73 11/09/19 09:16 72 184/76 11/09/19 09:00 Room Air 11/09/19 08:00 72 11/09/19 08:00 97.1 82 22 184/76 (112) 95 11/09/19 04:00 97.3 86 19 142/67 (92) 95 11/09/19 03:39 83 11/09/19 00:00 99.1 86 20 154/58 (90) 94 Intake and Output 11/08/19 11/09/19 19:00 07:00 Intake Total 0 ml 50 ml Balance 0 ml 50 ml Intake Oral 0 ml IV Total 50 ml # Voids 1 2 # Bowel Movements 1 1 Laboratory Tests Test 11/09/19 04:26 11/09/19 05:55 11/09/19 21:30 Urine Random Sodium 90 mmol/L (20-110) White Blood Count 4.9 K/UL (4.8-10.8) Red Blood Count 3.15 M/UL (4.70-6.10) L Hemoglobin 8.9 G/DL (14.2-18.0) L Hematocrit 26.7 % (42.0-52.0) L Mean Corpuscular Volume 85 FL (80-99) Mean Corpuscular Hemoglobin 28.4 PG (27.0-31.0) Mean Corpuscular Hemoglobin Concent 33.5 G/DL (32.0-36.0) Red Cell Distribution Width 12.2 % (11.6-14.8) Platelet Count 138 K/UL (150-450) L Mean Platelet Volume 7.1 FL (6.5-10.1) Neutrophils (%) (Auto) % (45.0-75.0) Lymphocytes (%) (Auto) % (20.0-45.0) Monocytes (%) (Auto) % (1.0-10.0) Eosinophils (%) (Auto) % (0.0-3.0) Basophils (%) (Auto) % (0.0-2.0) Differential Total Cells Counted 100 Neutrophils % (Manual) 65 % (45-75) Lymphocytes % (Manual) 24 % (20-45) Monocytes % (Manual) 11 % (1-10) H Eosinophils % (Manual) 0 % (0-3) Basophils % (Manual) 0 % (0-2) Band Neutrophils 0 % (0-8) Platelet Estimate Decreased L Platelet Morphology Normal Hypochromasia 3+ Anisocytosis 1+ D-Dimer 1.23 mg/L FEU (0.00-0.49) H Sodium Level 143 MMOL/L (136-145) Potassium Level 3.4 MMOL/L (3.5-5.1) L Chloride Level 106 MMOL/L (98-107) Carbon Dioxide Level 26 MMOL/L (21-32) Anion Gap 11 mmol/L (5-15) Blood Urea Nitrogen 23 mg/dL (7-18) H Creatinine 2.4 MG/DL (0.55-1.30) H Estimat Glomerular Filtration Rate 31.0 mL/min (>60) Glucose Level 154 MG/DL (74-106) H Hemoglobin A1c 7.5 % (4.3-6.0) H Lactic Acid Level 0.70 mmol/L (0.4-2.0) Uric Acid 5.4 MG/DL (2.6-7.2) Calcium Level 8.1 MG/DL (8.5-10.1) L Phosphorus Level 4.3 MG/DL (2.5-4.9) Magnesium Level 1.8 MG/DL (1.8-2.4) Iron Level 20 ug/dL (50-175) L Total Iron Binding Capacity 201 ug/dL (250-450) L Percent Iron Saturation 10 % (15-50) L Unsaturated Iron Binding 181 ug/dL (112-346) Ferritin 117 NG/ML (8-388) Total Bilirubin 0.3 MG/DL (0.2-1.0) Gamma Glutamyl Transpeptidase 20 U/L (5-85) Aspartate Amino Transf (AST/SGOT) 27 U/L (15-37) Alanine Aminotransferase (ALT/SGPT) 18 U/L (12-78) Alkaline Phosphatase 56 U/L (46-116) Lactate Dehydrogenase 201 U/L (81-234) Total Creatine Kinase 358 U/L (26-308) H C-Reactive Protein, Quantitative 1.6 mg/dL (0.00-0.90) H Pro-B-Type Natriuretic Peptide 2064 pg/mL (0-125) H Total Protein 6.6 G/DL (6.4-8.2) Albumin 2.7 G/DL (3.4-5.0) L Globulin 3.9 g/dL Albumin/Globulin Ratio 0.7 (1.0-2.7) L Triglycerides Level 52 MG/DL (30-150) Cholesterol Level 120 MG/DL (< 200) LDL Cholesterol 59 mg/dL (<100) HDL Cholesterol 44 MG/DL (40-60) Cholesterol/HDL Ratio 2.7 (3.3-4.4) L Vitamin B12 Level 310 PG/ML (193-986) Folate 18.5 NG/ML (8.6-58.9) Thyroid Stimulating Hormone (TSH) 0.998 uiU/mL (0.358-3.740) Troponin I 0.100 ng/mL (0.000-0.056) Microbiology Date/Time Source Procedure Growth Status 11/08/19 12:35 Urine,Clean Catch Urine Culture - Preliminary Gram Negative David Resulted 11/08/19 18:00 Rectum Received Dick Payan MD Nov 09, 2019 23:50
--- NOTE | 2019-11-09 23:59 | NUR ---
NURSE NOTES: Dr. Miller gave the following orders: -Decrease levemir from 20 to 14 units Will input order and will continue to monitor.
[2019-11-10] VITALS: BP 171/72
--- NOTE | 2019-11-10 01:00 | Consultation ---
DATE OF CONSULTATION: 11/09/2019 CARDIOLOGY CONSULTATION CONSULTING PHYSICIAN: Dick Payan M.D. REFERRING PHYSICIAN: Aliyah Miller M.D. REASON FOR CONSULTATION: Management of hypertension crisis/management of non-ST elevation myocardial infarction. HISTORY OF PRESENT ILLNESS: Patient is a very unfortunate 89-year-old gentleman who presents to the hospital with cough, fever about a day as well as shortness of breath. The patient did not have any chest pain on arrival to the hospital. He resides at a nursing facility and there is concern about COVID-19 infection. At the time of arrival to this hospital, blood pressure was 202/80 mmHg and pulse of 74. A 12-lead electrocardiogram was significant for sinus rhythm at a rate of 80 with no acute ischemic features with QT interval of 459 milliseconds and presence of a U-wave. Laboratory finding in the emergency department reveals anemia with hemoglobin of 9.6 and hematocrit of 29% with associated UTI features as well as potassium of 3.6. A BUN and creatinine of 24 and 2.5 and troponin I level of 0.062, which is slightly elevated. Brain natriuretic peptide was 2185. The patient was admitted to telemetry for further evaluation and management of shortness of breath. Of note, initial chest x-ray in the emergency department was significant for his cardiomegaly with mild bilateral pulmonary edema. Cardiology consultation was made at request of Dr. Miller. PAST MEDICAL HISTORY: Hypertension, diabetes mellitus, chronic kidney disease, gait abnormalities. PAST SURGICAL HISTORY: None. ALLERGIES: No known drug allergies. HABITS: Denies any tobacco, alcohol, or illicit drug use. FAMILY HISTORY: No premature coronary artery disease in first-degree relatives. REVIEW OF SYSTEMS: A 12-system review done essentially negative except what was mentioned in history of present illness. MEDICATIONS: List of medications in the retirement amlodipine 10 mg p.o. daily, bethanechol 25 mg 3 times a day, Avodart 0.5 mg p.o. daily, Nexium 20 mg daily, Proscar 5 mg p.o. daily, hydralazine 75 mg in the morning and at bedtime, Levemir insulin 46 units subcutaneous every morning, mirtazapine 7.5 mg at bedtime, Starlix 120 mg 3 times a day, omeprazole 20 mg in the morning, tamsulosin 0.4 mg at bedtime. PHYSICAL EXAMINATION: VITAL SIGNS: Blood pressure 202/80 mmHg, pulse of 74, respirations of 18, temperature 98.1 degrees Fahrenheit. GENERAL: Patient is a very unfortunate 89-year-old gentleman, in no apparent respiratory distress. Alert and oriented. HEENT: Atraumatic and normocephalic. Anicteric. Pupils are equal, round, and reactive to light and accommodation. Extraocular muscles intact. NECK: JVP less than 5 cm. No carotid bruit. Carotid upstrokes 2+ bilaterally. CARDIOVASCULAR: Normal S1, S2. Regular rate and rhythm. No murmurs, gallops, or rubs. PMI is at fourth intercostal space at the midclavicular line. LUNGS: Bibasilar crackles with diminished both lungs. ABDOMEN: Soft, nontender, nondistended. No hepatosplenomegaly. Positive bowel sounds. EXTREMITIES: No evidence of edema, clubbing, or cyanosis. LABORATORY FINDINGS: Sodium 140, potassium 3.6, chloride 104, bicarbonate 27, BUN 24, creatinine 2.5, glucose 171, calcium is 8.4. Troponin I was 0.062. ProBNP was 2085. WBC is 5.5, hemoglobin 9.6, hematocrit 29, and platelet counts of 170, relative lymphopenia. D-dimer is 1.23. ASSESSMENT AND PLAN: Patient is a very unfortunate 89-year-old gentleman, seen in Cardiology consultation. 1. Elevated troponin I level in this patient could be due to underlying acute heart failure. Brain natriuretic peptide is elevated. Chest x-ray shows evidence of pulmonary edema bilaterally. Patient will benefit from 2D echocardiography for assessment of LV systolic and diastolic function to manage hemodynamics better. 2. Possible associated COVID-19 bilateral pneumonia in view of low-grade fever, cough, and chest x-ray findings. Infectious Disease has started patient on ceftriaxone. Blood culture, urine culture, and MRSA culture has been requested. 3. History of diabetes mellitus. Aspirin and atorvastatin to prevent vasculopathy. 4. History of hypertension. Patient presents with hypertension crisis. Given renal failure, we would like to consider hydralazine and beta-blockers. 5. CKD. Further therapeutic and diagnostic decision will be based on results of 2D echocardiography. I would like to thank for the courtesy of this consultation. Dick Payan M.D. DR: JOVANY JOB#: [id number] CC:
[2019-11-10 04:00] VITALS: BP 168/70
--- NOTE | 2019-11-10 05:03 | NUR ---
NURSE NOTES: Called and left a message with Dr. Payan regarding pt BP. Awaiting call back.
[2019-11-10] MEDS: HydrALAZINE 25mg tab ORAL SCH (05:12)
[2019-11-10] MEDS: NovoLOG Insulin Flexpen SUBQ SCH ×5 (05:27→20:42)
--- NOTE | 2019-11-10 06:24 | Hematology/Onc Progress Note ---
Assessment/Plan Assessment/Plan Assess/Recs: # Anemia of chronic disease due to underlying chronic medical issues, multifactorial --> Anemia workup has been ordered --> No evidence of hemolysis is noted, peripheral smear has been reviewed. --> Hgb goal >7. Transfuse prn. --> Epogen or iron at this time is not particularly indicated --> Medications have been reviewed # Thrombocytopenia is likely due to UTI with sepsis --> management as per id --> CT of abdomen pelvis without contrast read by radiology showed bladder thickening and possible cystitis prior admission --> as per id recs --> plt trend 174-->138 --> smear is noted # Fever with cough --> r/o covid --> iso --> as per id # MISAEL on ckd --> as per renal team # DM nephropathy # BPH # Hypokalemia --> replete with k as needed The timing of this note does not necessarily reflect the time of the patient was seen. Greatly appreciate consultation! Subjective Constitutional: Denies: no symptoms, chills, fever, malaise, weakness, other HEENT: Denies: no symptoms, eye pain, blurred vision, tearing, double vision, ear pain, ear discharge, nose pain, nose congestion, throat pain, throat swelling, mouth pain, mouth swelling, other Cardiovascular: Denies: no symptoms, chest pain, edema, irregular heart rate, lightheadedness, palpitations, syncope, other Respiratory: Denies: no symptoms, cough, shortness of breath, SOB with excertion, SOB at rest, sputum, wheezing, other Gastrointestinal/Abdominal: Denies: no symptoms, abdomen distended, abdominal pain, black stools, tarry stools, blood in stool, constipated, diarrhea, difficulty swallowing, nausea, poor appetite, poor fluid intake, rectal bleeding , vomiting, other Genitourinary: Denies: no symptoms, burning, discharge, frequency, flank pain, hematuria, incontinence, pain, urgency, other Neurologic/Psychiatric: Denies: no symptoms, anxiety, depressed, emotional problems, headache, numbness, paresthesia, pre-existing deficit, seizure, tingling, tremors, weakness, other Hematologic/Lymphatic: Denies: no symptoms, anemia, easy bleeding, easy bruising, adenopathy, other Allergies: Coded Allergies: No Known Allergies (Unverified , 05/27/15) Subjective 11/09 labs reviewed, no bleeding, meds noted, seen by cards, cbc pendin Objective Objective Current Medications Medications (Trade) Dose Ordered Sig/Mayank Route PRN Reason Start Time Stop Time Status Last Admin Dose Admin Acetaminophen (Tylenol) 500 mg Q4H PRN ORAL Mild Pain/Temp >100.5 11/08/19 21:45 12/08/19 21:44 Amlodipine Besylate (Norvasc) 10 mg DAILY ORAL 11/09/19 09:00 12/09/19 08:59 11/09/19 09:16 Bethanechol Chloride (Urecholine) 25 mg THREE TIMES A DAY ORAL 11/09/19 09:00 12/09/19 08:59 11/09/19 17:26 Ceftriaxone Sodium 1 gm/ Dextrose 55 ml @ 110 mls/hr Q24H IVPB 11/09/19 14:00 11/16/19 13:59 11/09/19 13:22 Dextrose (Dextrose 50%) 25 ml Q30M PRN IV Hypoglycemia 11/08/19 21:45 02/06/20 21:44 Dextrose (Dextrose 50%) 50 ml Q30M PRN IV Hypoglycemia 11/08/19 21:45 02/06/20 21:44 Docusate Sodium (Colace) 100 mg THREE TIMES A DAY ORAL 11/09/19 18:00 12/09/19 17:59 11/09/19 17:28 Epoetin Mohit (Epoetin Mohit-EPBX(NON ESRD)) 6,000 unit SUN-SUN-SUN SUBQ 11/10/19 21:00 02/08/20 20:59 Finasteride (Proscar) 5 mg DAILY ORAL 11/09/19 09:00 02/07/20 08:59 11/09/19 09:16 Hydralazine HCl (Apresoline) 25 mg Q4H PRN ORAL bp over 160 syst 11/08/19 22:30 02/06/20 22:29 11/09/19 23:27 Hydralazine HCl (Apresoline) 50 mg Q8HR ORAL 11/09/19 14:00 02/07/20 22:59 11/10/19 05:12 Insulin Aspart (NovoLOG) BEFORE MEALS AND HS SUBQ 4/25/20 23:00 02/07/20 22:59 11/09/19 17:27 Insulin Detemir (Levemir) 14 units Q24H SUBQ 11/10/19 09:00 02/07/20 08:59 Mirtazapine (Remeron) 7.5 mg BEDTIME ORAL 11/08/19 23:00 02/06/20 22:59 11/09/19 21:23 Nateglinide (Starlix) 120 mg THREE TIMES A DAY ORAL 11/09/19 09:00 12/09/19 08:59 11/09/19 17:26 Pantoprazole (Protonix) 40 mg BID ORAL 11/09/19 09:00 12/09/19 08:59 11/09/19 17:26 Sodium Chloride 1,000 ml @ 75 mls/hr [id number] IV 11/09/19 15:00 12/09/19 14:59 11/10/19 04:20 Tamsulosin HCl (Flomax) 0.4 mg BID ORAL 11/09/19 18:00 12/09/19 20:59 11/09/19 17:25 Last 24 Hour Vital Signs Date Time Temp Pulse Resp B/P (MAP) Pulse Ox O2 Delivery O2 Flow Rate FiO2 11/10/19 05:12 168/70 11/10/19 04:00 69 11/10/19 04:00 97.6 67 20 168/70 (102) 94 11/10/19 00:00 70 11/10/19 00:00 99.0 76 22 171/72 (105) 95 11/09/19 23:27 171/72 11/09/19 21:23 160/70 11/09/19 21:00 Room Air 11/09/19 20:00 99.1 69 22 160/70 (100) 98 11/09/19 16:00 79 11/09/19 16:00 98.9 72 20 149/59 (89) 97 11/09/19 13:21 151/72 11/09/19 12:00 99.4 74 20 151/72 (98) 97 11/09/19 12:00 73 11/09/19 09:16 72 184/76 11/09/19 09:00 Room Air 11/09/19 08:00 72 11/09/19 08:00 97.1 82 22 184/76 (112) 95 11/09/19 04:00 97.3 86 19 142/67 (92) 95 11/09/19 03:39 83 11/09/19 00:00 99.1 86 20 154/58 (90) 94 11/08/19 23:39 90 11/08/19 22:49 161/60 11/08/19 21:53 Room Air 11/08/19 20:30 98.6 88 20 158/60 (92) 95 11/08/19 20:10 98.1 83 22 150/53 98 Room Air 11/08/19 20:04 98.1 86 21 170/56 97 Room Air 11/08/19 19:40 170/56 11/08/19 18:14 175/60 11/08/19 17:41 100.3 71 18 164/79 96 Room Air 11/08/19 15:45 79 18 150/51 95 Room Air 11/08/19 14:22 100.3 11/08/19 14:00 100.3 87 18 148/57 94 Room Air 11/08/19 12:30 99.5 83 18 188/102 97 Room Air 11/08/19 12:30 83 18 Room Air 11/08/19 10:36 98.1 74 18 202/80 (120) Intake and Output 11/09/19 11/10/19 19:00 07:00 Intake Total 972 ml Output Total 2000 ml Balance 972 ml -2000 ml Intake Oral 400 ml IV Total 572 ml Output Urine Total 2000 ml # Voids 2 Labs Test 11/08/19 12:35 11/09/19 04:26 11/09/19 05:55 11/09/19 21:30 White Blood Count 5.5 K/UL (4.8-10.8) 4.9 K/UL (4.8-10.8) Red Blood Count 3.44 M/UL (4.70-6.10) 3.15 M/UL (4.70-6.10) Hemoglobin 9.6 G/DL (14.2-18.0) 8.9 G/DL (14.2-18.0) Hematocrit 29.0 % (42.0-52.0) 26.7 % (42.0-52.0) Mean Corpuscular Volume 84 FL (80-99) 85 FL (80-99) Mean Corpuscular Hemoglobin 27.8 PG (27.0-31.0) 28.4 PG (27.0-31.0) Mean Corpuscular Hemoglobin Concent 33.0 G/DL (32.0-36.0) 33.5 G/DL (32.0-36.0) Red Cell Distribution Width 12.2 % (11.6-14.8) 12.2 % (11.6-14.8) Platelet Count 174 K/UL (150-450) 138 K/UL (150-450) Mean Platelet Volume 7.6 FL (6.5-10.1) 7.1 FL (6.5-10.1) Neutrophils (%) (Auto) % (45.0-75.0) % (45.0-75.0) Lymphocytes (%) (Auto) % (20.0-45.0) % (20.0-45.0) Monocytes (%) (Auto) % (1.0-10.0) % (1.0-10.0) Eosinophils (%) (Auto) % (0.0-3.0) % (0.0-3.0) Basophils (%) (Auto) % (0.0-2.0) % (0.0-2.0) Differential Total Cells Counted 100 100 Neutrophils % (Manual) 65 % (45-75) 65 % (45-75) Lymphocytes % (Manual) 18 % (20-45) 24 % (20-45) Monocytes % (Manual) 16 % (1-10) 11 % (1-10) Eosinophils % (Manual) 0 % (0-3) 0 % (0-3) Basophils % (Manual) 1 % (0-2) 0 % (0-2) Band Neutrophils 0 % (0-8) 0 % (0-8) Platelet Estimate Adequate Decreased Platelet Morphology Normal Normal Hypochromasia 2+ 3+ Anisocytosis 1+ 1+ Urine Color Pale yellow Urine Appearance Cloudy Urine pH 6.5 (4.5-8.0) Urine Specific [place] 1.010 (1.005-1.035) Urine Protein 3+ (NEGATIVE) Urine Glucose (UA) Negative (NEGATIVE) Urine Ketones Negative (NEGATIVE) Urine Blood 4+ (NEGATIVE) Urine Nitrite Negative (NEGATIVE) Urine Bilirubin Negative (NEGATIVE) Urine Urobilinogen Normal MG/DL (0.0-1.0) Urine Leukocyte Esterase 3+ (NEGATIVE) Urine RBC 2-4 /HPF (0 - 0) Urine WBC 40-60 /HPF (0 - 0) Urine Squamous Epithelial Cells Occasional /LPF Urine Bacteria Many /HPF (NONE) Sodium Level 140 MMOL/L (136-145) 143 MMOL/L (136-145) Potassium Level 3.6 MMOL/L (3.5-5.1) 3.4 MMOL/L (3.5-5.1) Chloride Level 104 MMOL/L (98-107) 106 MMOL/L (98-107) Carbon Dioxide Level 27 MMOL/L (21-32) 26 MMOL/L (21-32) Anion Gap 9 mmol/L (5-15) 11 mmol/L (5-15) Blood Urea Nitrogen 24 mg/dL (7-18) 23 mg/dL (7-18) Creatinine 2.5 MG/DL (0.55-1.30) 2.4 MG/DL (0.55-1.30) Estimat Glomerular Filtration Rate 29.6 mL/min (>60) 31.0 mL/min (>60) Glucose Level 171 MG/DL (74-106) 154 MG/DL (74-106) Lactic Acid Level 0.70 mmol/L (0.4-2.0) 0.70 mmol/L (0.4-2.0) Calcium Level 8.4 MG/DL (8.5-10.1) 8.1 MG/DL (8.5-10.1) Phosphorus Level 3.5 MG/DL (2.5-4.9) 4.3 MG/DL (2.5-4.9) Magnesium Level 2.0 MG/DL (1.8-2.4) 1.8 MG/DL (1.8-2.4) Total Bilirubin 0.3 MG/DL (0.2-1.0) 0.3 MG/DL (0.2-1.0) Aspartate Amino Transf (AST/SGOT) 20 U/L (15-37) 27 U/L (15-37) Alanine Aminotransferase (ALT/SGPT) 17 U/L (12-78) 18 U/L (12-78) Alkaline Phosphatase 73 U/L (46-116) 56 U/L (46-116) Total Creatine Kinase 199 U/L (26-308) 358 U/L (26-308) Creatine Kinase MB 0.9 NG/ML (0.0-3.6) Creatine Kinase MB Relative Index 0.4 Troponin I 0.062 ng/mL (0.000-0.056) 0.100 ng/mL (0.000-0.056) Pro-B-Type Natriuretic Peptide 2085 pg/mL (0-125) 2064 pg/mL (0-125) Total Protein 7.3 G/DL (6.4-8.2) 6.6 G/DL (6.4-8.2) Albumin 3.0 G/DL (3.4-5.0) 2.7 G/DL (3.4-5.0) Globulin 4.3 g/dL 3.9 g/dL Albumin/Globulin Ratio 0.7 (1.0-2.7) 0.7 (1.0-2.7) Lipase 130 U/L (73-393) Urine Random Sodium 90 mmol/L (20-110) D-Dimer 1.23 mg/L FEU (0.00-0.49) Hemoglobin A1c 7.5 % (4.3-6.0) Uric Acid 5.4 MG/DL (2.6-7.2) Iron Level 20 ug/dL (50-175) Total Iron Binding Capacity 201 ug/dL (250-450) Percent Iron Saturation 10 % (15-50) Unsaturated Iron Binding 181 ug/dL (112-346) Ferritin 117 NG/ML (8-388) Gamma Glutamyl Transpeptidase 20 U/L (5-85) Lactate Dehydrogenase 201 U/L (81-234) C-Reactive Protein, Quantitative 1.6 mg/dL (0.00-0.90) Triglycerides Level 52 MG/DL (30-150) Cholesterol Level 120 MG/DL (< 200) LDL Cholesterol 59 mg/dL (<100) HDL Cholesterol 44 MG/DL (40-60) Cholesterol/HDL Ratio 2.7 (3.3-4.4) Vitamin B12 Level 310 PG/ML (193-986) Folate 18.5 NG/ML (8.6-58.9) Thyroid Stimulating Hormone (TSH) 0.998 uiU/mL (0.358-3.740) Height (Feet): 5 Height (Inches): 10.00 Weight (Pounds): 260 Objective vitals: noted ENT: dry mucus membranes Neck: limited range of motion Respiratory: decreased breath sounds Cardiovascular: normal peripheral pulses, rrr Gastrointestinal: normal bowel sounds, soft, tenderness - suprapubic Musculoskeletal: decreased range of motion Neurologic: normal inspection, alert, responsive Psychiatric: normal inspection Skin: normal inspection, normal color Cesar Singh MD Nov 10, 2019 06:24
[2019-11-10 06:53] LABS: HEMATOCRIT 27.9 % (42.0-52.0); HEMOGLOBIN 9.2 G/DL (14.2-18.0); MEAN CORPUSCULAR VOLUME 84 FL (80-99); PLATELET COUNT 136 K/UL (150-450); RED BLOOD COUNT 3.31 M/UL (4.70-6.10); RED CELL DISTRIBUTION WIDTH 12.3 % (11.6-14.8); WHITE BLOOD COUNT 4.6 K/UL (4.8-10.8)
--- NOTE | 2019-11-10 07:36 | NUR ---
HAND-OFF: Report given to BENOIT Marie. Pt stable.
[2019-11-10 08:00] VITALS: BP 189/75
--- NOTE | 2019-11-10 08:18 | NUR ---
NURSE NOTES: Patient stable, AOx4 with no complaints and no s/sx of pain or distress. RR even and unlabored on RA. Breakfast provided. Side rails upx2, call light within reach, bed low and locked. Will continue to monitor.
[2019-11-10] MEDS: Levemir Flexpen SUBQ SCH (09:00)
[2019-11-10] MEDS: Nateglinide 60mg tab ORAL SCH ×3 (10:14→17:46)
[2019-11-10] MEDS: HydrALAZINE 25mg tab ORAL PRN ×2 (10:14→17:46)
[2019-11-10] MEDS: Bethanechol 25mg Tab ORAL SCH ×3 (10:15→17:46)
[2019-11-10] MEDS: Docusate 100mg cap ORAL SCH ×3 (10:16→17:46)
[2019-11-10] MEDS: Tamsulosin 0.4mg cap ORAL SCH ×2 (10:18→17:49)
--- NOTE | 2019-11-10 11:04 | Pulmonology Progress Note ---
Assessment/Plan Assessment/Plan IMPRESSION: 1. Fever. 2. Positive COVID-19 pneumonia. 3. Multiple medical problems. 4. Normoxemia DISCUSSION: Continue current medications and care. Broad spectrum antibiotics. 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 Has positive COVID-19. Saturating well on RA Bill Westfall M.D. Subjective ROS Limited/Unobtainable: Yes Interval Events: None new Constitutional: Reports: no symptoms HEENT: Repors: no symptoms Respiratory: Reports: no symptoms Cardiovascular: Reports: no symptoms Gastrointestinal/Abdominal: Reports: no symptoms Genitourinary: Reports: no symptoms Allergies: Coded Allergies: No Known Allergies (Unverified , 05/27/15) Objective Last 24 Hour Vital Signs Date Time Temp Pulse Resp B/P (MAP) Pulse Ox O2 Delivery O2 Flow Rate FiO2 11/10/19 10:14 189/75 11/10/19 10:14 63 189/75 11/10/19 09:00 Room Air 11/10/19 08:00 96.6 70 18 189/75 (113) 96 11/10/19 08:00 63 11/10/19 05:12 168/70 11/10/19 04:00 69 11/10/19 04:00 97.6 67 20 168/70 (102) 94 11/10/19 00:00 70 11/10/19 00:00 99.0 76 22 171/72 (105) 95 11/09/19 23:27 171/72 11/09/19 21:23 160/70 11/09/19 21:00 Room Air 11/09/19 20:00 99.1 69 22 160/70 (100) 98 11/09/19 16:00 79 11/09/19 16:00 98.9 72 20 149/59 (89) 97 11/09/19 13:21 151/72 11/09/19 12:00 99.4 74 20 151/72 (98) 97 11/09/19 12:00 73 Intake and Output 11/09/19 11/10/19 19:00 07:00 Intake Total 972 ml Output Total 2000 ml Balance 972 ml -2000 ml Intake Oral 400 ml IV Total 572 ml Output Urine Total 2000 ml # Voids 2 General Appearance: no acute distress HEENT: normocephalic Respiratory/Chest: chest wall non-tender, lungs clear Cardiovascular: normal peripheral pulses Abdomen: normal bowel sounds Microbiology Date/Time Source Procedure Growth Status 11/08/19 12:35 Blood Blood Culture - Preliminary NO GROWTH AFTER 24 HOURS Resulted 11/08/19 12:20 Blood Blood Culture - Preliminary NO GROWTH AFTER 24 HOURS Resulted 11/08/19 18:00 Nasal Nares MRSA Culture - Final Staphylococcus Aureus - Mrsa Complete 11/08/19 12:35 Nasopharynx Coronavirus COVID-19 PCR ([facility]) - Final Complete 11/08/19 12:35 Urine,Clean Catch Urine Culture - Final Escherichia Coli Complete 11/08/19 18:00 Rectum VRE Culture - Final NO VANCOMYCIN RESISTANT ENTEROCOCCUS ... Complete Laboratory Tests 11/09/19 21:30: Troponin I 0.100H 11/10/19 05:10: White Blood Count 4.6L, Red Blood Count 3.31L, Hemoglobin 9.2L, Hematocrit 27.9L , Mean Corpuscular Volume 84, Mean Corpuscular Hemoglobin 27.9, Mean Corpuscular Hemoglobin Concent 33.1, Red Cell Distribution Width 12.3, Platelet Count 136L, Mean Platelet Volume 7.7, Neutrophils (%) (Auto) , Lymphocytes (%) ( Auto) , Monocytes (%) (Auto) , Eosinophils (%) (Auto) , Basophils (%) (Auto) , Differential Total Cells Counted 100, Neutrophils % (Manual) 48, Lymphocytes % ( Manual) 41, Monocytes % (Manual) 11H, Eosinophils % (Manual) 0, Basophils % ( Manual) 0, Band Neutrophils 0, Platelet Estimate DecreasedL, Platelet Morphology Normal, Hypochromasia 1+ Current Medications Medications (Trade) Dose Ordered Sig/Mayank Route PRN Reason Start Time Stop Time Status Last Admin Dose Admin Acetaminophen (Tylenol) 500 mg Q4H PRN ORAL Mild Pain/Temp >100.5 11/08/19 21:45 12/08/19 21:44 Amlodipine Besylate (Norvasc) 10 mg DAILY ORAL 11/09/19 09:00 12/09/19 08:59 11/10/19 10:14 Bethanechol Chloride (Urecholine) 25 mg THREE TIMES A DAY ORAL 11/09/19 09:00 12/09/19 08:59 11/10/19 10:15 Ceftriaxone Sodium 1 gm/ Dextrose 55 ml @ 110 mls/hr Q24H IVPB 11/09/19 14:00 11/16/19 13:59 11/09/19 13:22 Dextrose (Dextrose 50%) 25 ml Q30M PRN IV Hypoglycemia 11/08/19 21:45 02/06/20 21:44 Dextrose (Dextrose 50%) 50 ml Q30M PRN IV Hypoglycemia 11/08/19 21:45 02/06/20 21:44 Docusate Sodium (Colace) 100 mg THREE TIMES A DAY ORAL 11/09/19 18:00 12/09/19 17:59 11/10/19 10:16 Epoetin Mohit (Epoetin Mohit-EPBX(NON ESRD)) 6,000 unit SUN-SUN-SUN SUBQ 11/10/19 21:00 02/08/20 20:59 Finasteride (Proscar) 5 mg DAILY ORAL 11/09/19 09:00 02/07/20 08:59 11/10/19 10:16 Hydralazine HCl (Apresoline) 25 mg Q4H PRN ORAL bp over 160 syst 11/08/19 22:30 02/06/20 22:29 11/10/19 10:14 Hydralazine HCl (Apresoline) 50 mg Q8HR ORAL 11/10/19 14:00 02/07/20 13:59 Insulin Aspart (NovoLOG) BEFORE MEALS AND HS SUBQ 11/08/19 23:00 02/07/20 22:59 11/09/19 17:27 Insulin Detemir (Levemir) 14 units Q24H SUBQ 11/10/19 09:00 02/07/20 08:59 Mirtazapine (Remeron) 7.5 mg BEDTIME ORAL 11/08/19 23:00 02/06/20 22:59 11/09/19 21:23 Nateglinide (Starlix) 120 mg THREE TIMES A DAY ORAL 11/09/19 09:00 12/09/19 08:59 11/10/19 10:14 Pantoprazole (Protonix) 40 mg BID ORAL 11/09/19 09:00 12/09/19 08:59 11/10/19 10:14 Sodium Chloride 1,000 ml @ 75 mls/hr [id number] IV 11/09/19 15:00 12/09/19 14:59 11/10/19 10:17 Tamsulosin HCl (Flomax) 0.4 mg BID ORAL 11/09/19 18:00 12/09/19 20:59 11/10/19 10:18 Bill Westfall MD Nov 10, 2019 11:04
--- NOTE | 2019-11-10 11:48 | Infectious Diseases Prog Note ---
Assessment/Plan Assessment/Plan IMPRESSION: E. coli UTI COVID19, mild symptoms diabetes mellitus, hypertension, anemia, Right eye glaucoma. Acute renal failure RECOMMENDATION: Continue ceftriaxone. Subjective ROS Limited/Unobtainable: Yes Constitutional: Denies: fever Allergies: Coded Allergies: No Known Allergies (Unverified , 05/27/15) Objective Vital Signs Last 24 Hour Vital Signs Date Time Temp Pulse Resp B/P (MAP) Pulse Ox O2 Delivery O2 Flow Rate FiO2 11/10/19 10:14 189/75 11/10/19 10:14 63 189/75 11/10/19 09:00 Room Air 11/10/19 08:00 96.6 70 18 189/75 (113) 96 11/10/19 08:00 63 11/10/19 05:12 168/70 11/10/19 04:00 69 11/10/19 04:00 97.6 67 20 168/70 (102) 94 11/10/19 00:00 70 11/10/19 00:00 99.0 76 22 171/72 (105) 95 11/09/19 23:27 171/72 11/09/19 21:23 160/70 11/09/19 21:00 Room Air 11/09/19 20:00 99.1 69 22 160/70 (100) 98 11/09/19 16:00 79 11/09/19 16:00 98.9 72 20 149/59 (89) 97 11/09/19 13:21 151/72 11/09/19 12:00 99.4 74 20 151/72 (98) 97 11/09/19 12:00 73 Height (Feet): 5 Height (Inches): 10.00 Weight (Pounds): 260 General Appearance: no acute distress HEENT: mucous membranes moist Respiratory/Chest: lungs clear Cardiovascular: normal rate Abdomen: soft, non tender Extremities: no edema Neurologic/Psychiatric: other - sleeping Microbiology Date/Time Source Procedure Growth Status 11/08/19 12:35 Blood Blood Culture - Preliminary NO GROWTH AFTER 24 HOURS Resulted 11/08/19 12:20 Blood Blood Culture - Preliminary NO GROWTH AFTER 24 HOURS Resulted 11/08/19 18:00 Nasal Nares MRSA Culture - Final Staphylococcus Aureus - Mrsa Complete 11/08/19 12:35 Nasopharynx Coronavirus COVID-19 PCR (BIA) - Final Complete 11/08/19 12:35 Urine,Clean Catch Urine Culture - Final Escherichia Coli Complete 11/08/19 18:00 Rectum VRE Culture - Final NO VANCOMYCIN RESISTANT ENTEROCOCCUS ... Complete Laboratory Tests Test 11/09/19 21:30 11/10/19 05:10 Troponin I 0.100 ng/mL (0.000-0.056) White Blood Count 4.6 K/UL (4.8-10.8) L Red Blood Count 3.31 M/UL (4.70-6.10) L Hemoglobin 9.2 G/DL (14.2-18.0) L Hematocrit 27.9 % (42.0-52.0) L Mean Corpuscular Volume 84 FL (80-99) Mean Corpuscular Hemoglobin 27.9 PG (27.0-31.0) Mean Corpuscular Hemoglobin Concent 33.1 G/DL (32.0-36.0) Red Cell Distribution Width 12.3 % (11.6-14.8) Platelet Count 136 K/UL (150-450) L Mean Platelet Volume 7.7 FL (6.5-10.1) Neutrophils (%) (Auto) % (45.0-75.0) Lymphocytes (%) (Auto) % (20.0-45.0) Monocytes (%) (Auto) % (1.0-10.0) Eosinophils (%) (Auto) % (0.0-3.0) Basophils (%) (Auto) % (0.0-2.0) Differential Total Cells Counted 100 Neutrophils % (Manual) 48 % (45-75) Lymphocytes % (Manual) 41 % (20-45) Monocytes % (Manual) 11 % (1-10) H Eosinophils % (Manual) 0 % (0-3) Basophils % (Manual) 0 % (0-2) Band Neutrophils 0 % (0-8) Platelet Estimate Decreased L Platelet Morphology Normal Hypochromasia 1+ Current Medications Medications (Trade) Dose Ordered Sig/Mayank Route PRN Reason Start Time Stop Time Status Last Admin Dose Admin Acetaminophen (Tylenol) 500 mg Q4H PRN ORAL Mild Pain/Temp >100.5 11/08/19 21:45 12/08/19 21:44 Amlodipine Besylate (Norvasc) 10 mg DAILY ORAL 11/09/19 09:00 5/26/20 08:59 11/10/19 10:14 Bethanechol Chloride (Urecholine) 25 mg THREE TIMES A DAY ORAL 11/09/19 09:00 12/09/19 08:59 11/10/19 10:15 Ceftriaxone Sodium 1 gm/ Dextrose 55 ml @ 110 mls/hr Q24H IVPB 11/09/19 14:00 11/16/19 13:59 11/09/19 13:22 Dextrose (Dextrose 50%) 25 ml Q30M PRN IV Hypoglycemia 11/08/19 21:45 02/06/20 21:44 Dextrose (Dextrose 50%) 50 ml Q30M PRN IV Hypoglycemia 11/08/19 21:45 02/06/20 21:44 Docusate Sodium (Colace) 100 mg THREE TIMES A DAY ORAL 11/09/19 18:00 12/09/19 17:59 11/10/19 10:16 Epoetin Mohit (Epoetin Mohit-EPBX(NON ESRD)) 6,000 unit SUN-SUN-SUN SUBQ 11/10/19 21:00 02/08/20 20:59 Finasteride (Proscar) 5 mg DAILY ORAL 11/09/19 09:00 02/07/20 08:59 11/10/19 10:16 Hydralazine HCl (Apresoline) 25 mg Q4H PRN ORAL bp over 160 syst 11/08/19 22:30 02/06/20 22:29 11/10/19 10:14 Hydralazine HCl (Apresoline) 50 mg Q8HR ORAL 11/10/19 14:00 02/07/20 13:59 Insulin Aspart (NovoLOG) BEFORE MEALS AND HS SUBQ 11/08/19 23:00 02/07/20 22:59 11/09/19 17:27 Insulin Detemir (Levemir) 14 units Q24H SUBQ 11/10/19 09:00 02/07/20 08:59 Mirtazapine (Remeron) 7.5 mg BEDTIME ORAL 11/08/19 23:00 02/06/20 22:59 11/09/19 21:23 Nateglinide (Starlix) 120 mg THREE TIMES A DAY ORAL 11/09/19 09:00 12/09/19 08:59 11/10/19 10:14 Pantoprazole (Protonix) 40 mg BID ORAL 11/09/19 09:00 12/09/19 08:59 11/10/19 10:14 Sodium Chloride 1,000 ml @ 75 mls/hr [id number] IV 11/09/19 15:00 12/09/19 14:59 11/10/19 10:17 Tamsulosin HCl (Flomax) 0.4 mg BID ORAL 11/09/19 18:00 12/09/19 20:59 11/10/19 10:18 Viktor Miranda MD Nov 10, 2019 11:48
[2019-11-10 12:00] VITALS: BP 174/80
--- NOTE | 2019-11-10 12:09 | Nephrology Progress Note ---
Assessment/Plan Problem List: (1) Acute on chronic renal failure (2) BPH (benign prostatic hyperplasia) (3) Anemia (4) Sepsis (5) COVID-19 virus detected Assessment Mr. Melton is admitted with pneumonia and UTI and exposure to COVID-19 virus, and the test is positive From renal standpoint of view: Acute on chronic renal failure: Serum creatinine has risen from baseline of 1.6- 2.5 Diabetic nephropathy BPH Anemia Hypertension Plan Adjust blood pressure medication Slow hydration Flomax twice daily Antibiotics per ID Will review the 2D echocardiogram and ultrasound which was done previously Continue renal parameters Adjust blood pressure medication Avoid nephrotoxics Per orders Subjective ROS Limited/Unobtainable: No Constitutional: Reports: malaise, weakness Objective Objective Last 24 Hour Vital Signs Date Time Temp Pulse Resp B/P (MAP) Pulse Ox O2 Delivery O2 Flow Rate FiO2 11/10/19 10:14 189/75 11/10/19 10:14 63 189/75 11/10/19 09:00 Room Air 11/10/19 08:00 96.6 70 18 189/75 (113) 96 11/10/19 08:00 63 11/10/19 05:12 168/70 11/10/19 04:00 69 11/10/19 04:00 97.6 67 20 168/70 (102) 94 11/10/19 00:00 70 11/10/19 00:00 99.0 76 22 171/72 (105) 95 11/09/19 23:27 171/72 11/09/19 21:23 160/70 11/09/19 21:00 Room Air 11/09/19 20:00 99.1 69 22 160/70 (100) 98 11/09/19 16:00 79 11/09/19 16:00 98.9 72 20 149/59 (89) 97 11/09/19 13:21 151/72 Intake and Output 11/09/19 11/10/19 19:00 07:00 Intake Total 972 ml Output Total 2000 ml Balance 972 ml -2000 ml Intake Oral 400 ml IV Total 572 ml Output Urine Total 2000 ml # Voids 2 Laboratory Tests 11/09/19 21:30: Troponin I 0.100H 11/10/19 05:10: White Blood Count 4.6L, Red Blood Count 3.31L, Hemoglobin 9.2L, Hematocrit 27.9L , Mean Corpuscular Volume 84, Mean Corpuscular Hemoglobin 27.9, Mean Corpuscular Hemoglobin Concent 33.1, Red Cell Distribution Width 12.3, Platelet Count 136L, Mean Platelet Volume 7.7, Neutrophils (%) (Auto) , Lymphocytes (%) ( Auto) , Monocytes (%) (Auto) , Eosinophils (%) (Auto) , Basophils (%) (Auto) , Differential Total Cells Counted 100, Neutrophils % (Manual) 48, Lymphocytes % ( Manual) 41, Monocytes % (Manual) 11H, Eosinophils % (Manual) 0, Basophils % ( Manual) 0, Band Neutrophils 0, Platelet Estimate DecreasedL, Platelet Morphology Normal, Hypochromasia 1+ No can panel today Height (Feet): 5 Height (Inches): 10.00 Weight (Pounds): 260 General Appearance: no apparent distress Cardiovascular: normal rate Respiratory/Chest: decreased breath sounds Abdomen: distended, other Rodrigue Mackenzie MD Nov 10, 2019 12:09
[2019-11-10] MEDS ORDERED: HydrALAZINE 50mg tab ORAL SCH (14:00)
[2019-11-10] MEDS: HydrALAZINE 50mg tab ORAL SCH ×2 (14:40→20:41)
[2019-11-10] MEDS: cefTRIAXone 1 GM in D5W 55 ML IVPB SCH (14:40)
--- NOTE | 2019-11-10 15:30 | NUR ---
CASE MANAGEMENT:REVIEW 89 YR OLD MALE BIBA FROM [facility] CC: FEVER SI: PNEUMONIA. FEVER. SUSPECTED COVID 19 100.3 74 18 202/80 97% ON RA H/H-9.6/29.0 BUN+24 CR+2.5 TROPONIN(+) 0.062 BNP+2085 IS: IV VANCOMYCIN 1L NS BOLUS IV CEFEPIME IV AZITHROMYCIN IV HYDRALAZINE TYLENOL PO COVID 19 URINE CX BLOOD CX CHEST XRAY : TO TELEMETRY DCP: FROM [facility]
--- NOTE | 2019-11-10 15:37 | NUR ---
CASE MANAGEMENT:REVIEW 11/10/19 SI: POSITIVE COVID 19 PNEUMONIA E COLI UTI. ACUTE RENAL FAILURE 96.6 70 18 189/75 96% ON RA TROPONIN(+) 0.100 IS: IV ROCEPHIN Q24HRS IVF@75/HR EPOETIN SQ MWF PROCARDIA XL PO BID HYDRALAZINE PO Q8HRS FLOMAX PO BID URECHOLINE PO TID STARLIX PO TID PROSCAR PO QD PROTONIX PO BID REMERON PO QHS : TELEMETRY STATUS DCP: FROM [facility]
[2019-11-10 16:00] VITALS: BP 164/74
[2019-11-10 20:00] VITALS: BP 152/54
--- NOTE | 2019-11-10 20:28 | NUR ---
HAND-OFF: Report given to Susanna LABOY. Patient stable. Plan of care endorsed.
[2019-11-10] MEDS: Epoetin Alfa-EPBX (NON ESRD) 3000 units/ml vial SUBQ SCH (20:41)
--- NOTE | 2019-11-10 21:55 | General Progress Note ---
Assessment/Plan Problem List: (1) Sepsis ICD Codes: A41.9 - Sepsis, unspecified organism SNOMED: 79341545 (2) Diabetes ICD Codes: E11.9 - Type 2 diabetes mellitus without complications SNOMED: 60509172 (3) BPH (benign prostatic hyperplasia) ICD Codes: N40.0 - Benign prostatic hyperplasia without lower urinary tract symptoms SNOMED: 138021500 (4) Anemia ICD Codes: D64.9 - Anemia, unspecified SNOMED: 832623765 (5) Acute on chronic renal failure ICD Codes: N17.9 - Acute kidney failure, unspecified; N18.9 - Chronic kidney disease, unspecified SNOMED: 132106782 (6) Fever ICD Codes: R50.9 - Fever, unspecified SNOMED: 053593263 Qualifiers: Qualified Codes: R50.9 - Fever, unspecified (7) Suspected COVID-19 virus infection ICD Codes: Z20.828 - Contact with and (suspected) exposure to other viral communicable diseases SNOMED: 568346520 (8) UTI (urinary tract infection) ICD Codes: N39.0 - Urinary tract infection, site not specified SNOMED: 57086591 Qualifiers: Qualified Codes: N39.0 - Urinary tract infection, site not specified (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 SNOMED: 72761488, 404489671 (10) Hypertension ICD Codes: I10 - Essential (primary) hypertension SNOMED: 74909452 Status: progressing Assessment/Plan: low k azotemia dm anemia improving sugar improving not hypoxic clinically improvig sepsis afebrile abx pe rid Subjective ROS Limited/Unobtainable: Yes Allergies: Coded Allergies: No Known Allergies (Unverified , 05/27/15) Objective Last 24 Hour Vital Signs Date Time Temp Pulse Resp B/P (MAP) Pulse Ox O2 Delivery O2 Flow Rate FiO2 11/10/19 20:41 152/54 11/10/19 20:00 98.6 86 19 152/54 (86) 95 11/10/19 17:46 77 164/74 11/10/19 17:46 164/74 11/10/19 16:00 76 11/10/19 16:00 96.7 77 19 164/74 (104) 97 4/27/20 14:40 174/80 11/10/19 12:31 68 174/80 11/10/19 12:00 98.2 62 20 174/80 (111) 96 11/10/19 12:00 70 11/10/19 10:14 189/75 11/10/19 10:14 63 189/75 11/10/19 09:00 Room Air 11/10/19 08:00 96.6 70 18 189/75 (113) 96 11/10/19 08:00 63 11/10/19 05:12 168/70 11/10/19 04:00 69 11/10/19 04:00 97.6 67 20 168/70 (102) 94 11/10/19 00:00 70 11/10/19 00:00 99.0 76 22 171/72 (105) 95 11/09/19 23:27 171/72 Intake and Output 11/09/19 11/10/19 19:00 07:00 Intake Total 972 ml 75 ml Output Total 2000 ml Balance 972 ml -1925 ml Intake Oral 400 ml IV Total 572 ml 75 ml Output Urine Total 2000 ml # Voids 2 Laboratory Tests 11/10/19 05:10: White Blood Count 4.6L, Red Blood Count 3.31L, Hemoglobin 9.2L, Hematocrit 27.9L , Mean Corpuscular Volume 84, Mean Corpuscular Hemoglobin 27.9, Mean Corpuscular Hemoglobin Concent 33.1, Red Cell Distribution Width 12.3, Platelet Count 136L, Mean Platelet Volume 7.7, Neutrophils (%) (Auto) , Lymphocytes (%) ( Auto) , Monocytes (%) (Auto) , Eosinophils (%) (Auto) , Basophils (%) (Auto) , Differential Total Cells Counted 100, Neutrophils % (Manual) 48, Lymphocytes % ( Manual) 41, Monocytes % (Manual) 11H, Eosinophils % (Manual) 0, Basophils % ( Manual) 0, Band Neutrophils 0, Platelet Estimate DecreasedL, Platelet Morphology Normal, Hypochromasia 1+ Height (Feet): 5 Height (Inches): 10.00 Weight (Pounds): 260 Aliyah Miller MD Nov 10, 2019 21:55
--- NOTE | 2019-11-10 23:58 | Cardiology Progress Note ---
Assessment/Plan Assessment/Plan 1. Elevated troponin I level in this patient likely acute HFpEF in view of CKD, HTN and age. Continue ASA and statins. 2. COVID-19 pneumonia on Ceftriaxone, ID follow-up. 3. DM, continue ASA and statins. 4. Hypertension secondary renal parenchymal disease, stage II, continue hydralazine, nifedipine, start minoxidil, clonidine as needed. 5. CKD. Subjective Subjective Sinus rhythm at rate of 86. Objective Last 24 Hour Vital Signs Date Time Temp Pulse Resp B/P (MAP) Pulse Ox O2 Delivery O2 Flow Rate FiO2 11/10/19 20:41 152/54 11/10/19 20:00 98.6 86 19 152/54 (86) 95 11/10/19 17:46 77 164/74 11/10/19 17:46 164/74 11/10/19 16:00 76 11/10/19 16:00 96.7 77 19 164/74 (104) 97 11/10/19 14:40 174/80 11/10/19 12:31 68 174/80 11/10/19 12:00 98.2 62 20 174/80 (111) 96 11/10/19 12:00 70 11/10/19 10:14 189/75 11/10/19 10:14 63 189/75 11/10/19 09:00 Room Air 11/10/19 08:00 96.6 70 18 189/75 (113) 96 11/10/19 08:00 63 11/10/19 05:12 168/70 11/10/19 04:00 69 11/10/19 04:00 97.6 67 20 168/70 (102) 94 11/10/19 00:00 70 11/10/19 00:00 99.0 76 22 171/72 (105) 95 Intake and Output 11/09/19 11/10/19 19:00 07:00 Intake Total 972 ml 75 ml Output Total 2000 ml Balance 972 ml -1925 ml Intake Oral 400 ml IV Total 572 ml 75 ml Output Urine Total 2000 ml # Voids 2 2D Echo: EF 55%, HERMINIO 0.8cm2, RVSP 48, mod MR, Mild AR/UT, Grade I LVDD Laboratory Tests Test 11/10/19 05:10 White Blood Count 4.6 K/UL (4.8-10.8) L Red Blood Count 3.31 M/UL (4.70-6.10) L Hemoglobin 9.2 G/DL (14.2-18.0) L Hematocrit 27.9 % (42.0-52.0) L Mean Corpuscular Volume 84 FL (80-99) Mean Corpuscular Hemoglobin 27.9 PG (27.0-31.0) Mean Corpuscular Hemoglobin Concent 33.1 G/DL (32.0-36.0) Red Cell Distribution Width 12.3 % (11.6-14.8) Platelet Count 136 K/UL (150-450) L Mean Platelet Volume 7.7 FL (6.5-10.1) Neutrophils (%) (Auto) % (45.0-75.0) Lymphocytes (%) (Auto) % (20.0-45.0) Monocytes (%) (Auto) % (1.0-10.0) Eosinophils (%) (Auto) % (0.0-3.0) Basophils (%) (Auto) % (0.0-2.0) Differential Total Cells Counted 100 Neutrophils % (Manual) 48 % (45-75) Lymphocytes % (Manual) 41 % (20-45) Monocytes % (Manual) 11 % (1-10) H Eosinophils % (Manual) 0 % (0-3) Basophils % (Manual) 0 % (0-2) Band Neutrophils 0 % (0-8) Platelet Estimate Decreased L Platelet Morphology Normal Hypochromasia 1+ Microbiology Date/Time Source Procedure Growth Status 11/08/19 12:35 Blood Blood Culture - Preliminary NO GROWTH AFTER 24 HOURS Resulted 11/08/19 12:20 Blood Blood Culture - Preliminary NO GROWTH AFTER 24 HOURS Resulted 11/08/19 18:00 Nasal Nares MRSA Culture - Final Staphylococcus Aureus - Mrsa Complete 11/08/19 12:35 Nasopharynx Coronavirus COVID-19 PCR (BIA) - Final Complete 11/08/19 12:35 Urine,Clean Catch Urine Culture - Final Escherichia Coli Complete 11/08/19 18:00 Rectum VRE Culture - Final NO VANCOMYCIN RESISTANT ENTEROCOCCUS ... Complete Objective HEENT: Atraumatic and normocephalic. Anicteric. Pupils are equal, round, and reactive to light and accommodation. Extraocular muscles intact. NECK: JVP less than 5 cm. No carotid bruit. Carotid upstrokes 2+ bilaterally. CARDIOVASCULAR: Normal S1, S2. Regular rate and rhythm. No murmurs, gallops, or rubs. PMI is at fourth intercostal space at the midclavicular line. LUNGS: Bibasilar crackles with diminished both lungs. ABDOMEN: Soft, nontender, nondistended. No hepatosplenomegaly. Positive bowel sounds. EXTREMITIES: No evidence of edema, clubbing, or cyanosis. Dick Payan MD Nov 10, 2019 23:58
[2019-11-11] VITALS: BP 153/80
[2019-11-11 04:00] VITALS: BP 154/61
--- NOTE | 2019-11-11 05:59 | Hematology/Onc Progress Note ---
Assessment/Plan Assessment/Plan Assess/Recs: # Pancytopenia -- initially with Anemia of chronic disease due to underlying chronic medical issues, multifactorial, also covie19 related --> Anemia workup has been ordered --> No evidence of hemolysis is noted, peripheral smear has been reviewed. --> Hgb goal >7. Transfuse prn. --> Epogen or iron at this time is not particularly indicated --> Medications have been reviewed --> plt 136 --> wbc 3.6 # Thrombocytopenia is likely due to UTI with sepsis --> management as per id --> CT of abdomen pelvis without contrast read by radiology showed bladder thickening and possible cystitis prior admission --> as per id recs --> plt trend 174-->138 --> smear is noted # Fever with cough --> r/o covid --> iso --> as per id # MISAEL on ckd --> as per renal team # DM nephropathy # BPH # Hypokalemia --> replete with k as needed The timing of this note does not necessarily reflect the time of the patient was seen. Greatly appreciate consultation! Subjective Constitutional: Denies: no symptoms, chills, fever, malaise, weakness, other HEENT: Denies: no symptoms, eye pain, blurred vision, tearing, double vision, ear pain, ear discharge, nose pain, nose congestion, throat pain, throat swelling, mouth pain, mouth swelling, other Cardiovascular: Denies: no symptoms, chest pain, edema, irregular heart rate, lightheadedness, palpitations, syncope, other Respiratory: Denies: no symptoms, cough, shortness of breath, SOB with excertion, SOB at rest, sputum, wheezing, other Gastrointestinal/Abdominal: Denies: no symptoms, abdomen distended, abdominal pain, black stools, tarry stools, blood in stool, constipated, diarrhea, difficulty swallowing, nausea, poor appetite, poor fluid intake, rectal bleeding , vomiting, other Genitourinary: Denies: no symptoms, burning, discharge, frequency, flank pain, hematuria, incontinence, pain, urgency, other Neurologic/Psychiatric: Denies: no symptoms, anxiety, depressed, emotional problems, headache, numbness, paresthesia, pre-existing deficit, seizure, tingling, tremors, weakness, other Endocrine: Denies: no symptoms, excessive sweating, flushing, intolerance to cold, intolerance to heat, increased hunger, increased thirst, increased urine, unexplained weight gain, unexplained weight loss, other Allergies: Coded Allergies: No Known Allergies (Unverified , 05/27/15) Subjective 11/09 labs reviewed, no bleeding, meds noted, seen by cards, cbc pendin 11/10 labs noted, no bleeding, serology neg, supportive care for covid19 Objective Objective Current Medications Medications (Trade) Dose Ordered Sig/Mayank Route PRN Reason Start Time Stop Time Status Last Admin Dose Admin Acetaminophen (Tylenol) 500 mg Q4H PRN ORAL Mild Pain/Temp >100.5 11/08/19 21:45 12/08/19 21:44 Bethanechol Chloride (Urecholine) 25 mg THREE TIMES A DAY ORAL 11/09/19 09:00 12/09/19 08:59 11/10/19 17:46 Ceftriaxone Sodium 1 gm/ Dextrose 55 ml @ 110 mls/hr Q24H IVPB 11/09/19 14:00 11/16/19 13:59 11/10/19 14:40 Clonidine HCl (Catapres Tab) 0.1 mg Q6H PRN ORAL For High Blood Pressure 11/10/19 19:27 02/08/20 19:26 Dextrose (Dextrose 50%) 25 ml Q30M PRN IV Hypoglycemia 11/08/19 21:45 02/06/20 21:44 Dextrose (Dextrose 50%) 50 ml Q30M PRN IV Hypoglycemia 11/08/19 21:45 02/06/20 21:44 Docusate Sodium (Colace) 100 mg THREE TIMES A DAY ORAL 11/09/19 18:00 12/09/19 17:59 11/10/19 17:46 Epoetin Mohit (Epoetin Mohit-EPBX(NON ESRD)) 6,000 unit SUN-SUN-SUN SUBQ 11/10/19 21:00 02/08/20 20:59 11/10/19 20:41 Finasteride (Proscar) 5 mg DAILY ORAL 11/09/19 09:00 02/07/20 08:59 11/10/19 10:16 Hydralazine HCl (Apresoline) 25 mg Q4H PRN ORAL bp over 160 syst 11/08/19 22:30 02/06/20 22:29 11/10/19 17:46 Hydralazine HCl (Apresoline) 75 mg Q8HR ORAL 11/10/19 14:00 02/07/20 13:59 11/10/19 20:41 Insulin Aspart (NovoLOG) BEFORE MEALS AND HS SUBQ 11/08/19 23:00 02/07/20 22:59 11/10/19 17:49 Insulin Detemir (Levemir) 14 units Q24H SUBQ 11/10/19 09:00 02/07/20 08:59 Mirtazapine (Remeron) 7.5 mg BEDTIME ORAL 11/08/19 23:00 02/06/20 22:59 11/10/19 20:42 Nateglinide (Starlix) 120 mg THREE TIMES A DAY ORAL 11/09/19 09:00 12/09/19 08:59 11/10/19 17:46 Nifedipine (Procardia XL) 30 mg BID ORAL 11/10/19 18:00 12/10/19 17:59 11/10/19 17:46 Pantoprazole (Protonix) 40 mg BID ORAL 11/09/19 09:00 12/09/19 08:59 11/10/19 17:46 Sodium Chloride 1,000 ml @ 75 mls/hr [id number] IV 11/09/19 15:00 12/09/19 14:59 11/11/19 02:22 Tamsulosin HCl (Flomax) 0.4 mg BID ORAL 11/09/19 18:00 12/09/19 20:59 11/10/19 17:49 Last 24 Hour Vital Signs Date Time Temp Pulse Resp B/P (MAP) Pulse Ox O2 Delivery O2 Flow Rate FiO2 11/11/19 04:00 80 11/11/19 04:00 98.4 84 24 154/61 (92) 95 11/11/19 00:00 83 11/11/19 00:00 98.2 77 27 153/80 (104) 96 11/10/19 21:00 Room Air 11/10/19 20:41 152/54 11/10/19 20:00 98.6 86 19 152/54 (86) 95 11/10/19 20:00 78 11/10/19 17:46 77 164/74 11/10/19 17:46 164/74 11/10/19 16:00 76 11/10/19 16:00 96.7 77 19 164/74 (104) 97 11/10/19 14:40 174/80 11/10/19 12:31 68 174/80 11/10/19 12:00 98.2 62 20 174/80 (111) 96 11/10/19 12:00 70 11/10/19 10:14 189/75 11/10/19 10:14 63 189/75 11/10/19 09:00 Room Air 11/10/19 08:00 96.6 70 18 189/75 (113) 96 11/10/19 08:00 63 11/10/19 05:12 168/70 11/10/19 04:00 69 11/10/19 04:00 97.6 67 20 168/70 (102) 94 11/10/19 00:00 70 11/10/19 00:00 99.0 76 22 171/72 (105) 95 11/09/19 23:27 171/72 11/09/19 21:23 160/70 11/09/19 21:00 Room Air 11/09/19 20:00 99.1 69 22 160/70 (100) 98 11/09/19 16:00 79 11/09/19 16:00 98.9 72 20 149/59 (89) 97 11/09/19 13:21 151/72 11/09/19 12:00 99.4 74 20 151/72 (98) 97 11/09/19 12:00 73 11/09/19 09:16 72 184/76 11/09/19 09:00 Room Air 11/09/19 08:00 72 11/09/19 08:00 97.1 82 22 184/76 (112) 95 Intake and Output 11/10/19 11/11/19 19:00 07:00 Intake Total 590 ml Output Total 1200 ml 1800 ml Balance -610 ml -1800 ml Intake Oral 140 ml IV Total 450 ml Output Urine Total 1200 ml 1800 ml # Voids 3 # Bowel Movements 2 Labs Test 11/08/19 12:35 11/09/19 04:26 11/09/19 05:55 11/09/19 21:30 White Blood Count 5.5 K/UL (4.8-10.8) 4.9 K/UL (4.8-10.8) Red Blood Count 3.44 M/UL (4.70-6.10) 3.15 M/UL (4.70-6.10) Hemoglobin 9.6 G/DL (14.2-18.0) 8.9 G/DL (14.2-18.0) Hematocrit 29.0 % (42.0-52.0) 26.7 % (42.0-52.0) Mean Corpuscular Volume 84 FL (80-99) 85 FL (80-99) Mean Corpuscular Hemoglobin 27.8 PG (27.0-31.0) 28.4 PG (27.0-31.0) Mean Corpuscular Hemoglobin Concent 33.0 G/DL (32.0-36.0) 33.5 G/DL (32.0-36.0) Red Cell Distribution Width 12.2 % (11.6-14.8) 12.2 % (11.6-14.8) Platelet Count 174 K/UL (150-450) 138 K/UL (150-450) Mean Platelet Volume 7.6 FL (6.5-10.1) 7.1 FL (6.5-10.1) Neutrophils (%) (Auto) % (45.0-75.0) % (45.0-75.0) Lymphocytes (%) (Auto) % (20.0-45.0) % (20.0-45.0) Monocytes (%) (Auto) % (1.0-10.0) % (1.0-10.0) Eosinophils (%) (Auto) % (0.0-3.0) % (0.0-3.0) Basophils (%) (Auto) % (0.0-2.0) % (0.0-2.0) Differential Total Cells Counted 100 100 Neutrophils % (Manual) 65 % (45-75) 65 % (45-75) Lymphocytes % (Manual) 18 % (20-45) 24 % (20-45) Monocytes % (Manual) 16 % (1-10) 11 % (1-10) Eosinophils % (Manual) 0 % (0-3) 0 % (0-3) Basophils % (Manual) 1 % (0-2) 0 % (0-2) Band Neutrophils 0 % (0-8) 0 % (0-8) Platelet Estimate Adequate Decreased Platelet Morphology Normal Normal Hypochromasia 2+ 3+ Anisocytosis 1+ 1+ Urine Color Pale yellow Urine Appearance Cloudy Urine pH 6.5 (4.5-8.0) Urine Specific [place] 1.010 (1.005-1.035) Urine Protein 3+ (NEGATIVE) Urine Glucose (UA) Negative (NEGATIVE) Urine Ketones Negative (NEGATIVE) Urine Blood 4+ (NEGATIVE) Urine Nitrite Negative (NEGATIVE) Urine Bilirubin Negative (NEGATIVE) Urine Urobilinogen Normal MG/DL (0.0-1.0) Urine Leukocyte Esterase 3+ (NEGATIVE) Urine RBC 2-4 /HPF (0 - 0) Urine WBC 40-60 /HPF (0 - 0) Urine Squamous Epithelial Cells Occasional /LPF Urine Bacteria Many /HPF (NONE) Sodium Level 140 MMOL/L (136-145) 143 MMOL/L (136-145) Potassium Level 3.6 MMOL/L (3.5-5.1) 3.4 MMOL/L (3.5-5.1) Chloride Level 104 MMOL/L (98-107) 106 MMOL/L (98-107) Carbon Dioxide Level 27 MMOL/L (21-32) 26 MMOL/L (21-32) Anion Gap 9 mmol/L (5-15) 11 mmol/L (5-15) Blood Urea Nitrogen 24 mg/dL (7-18) 23 mg/dL (7-18) Creatinine 2.5 MG/DL (0.55-1.30) 2.4 MG/DL (0.55-1.30) Estimat Glomerular Filtration Rate 29.6 mL/min (>60) 31.0 mL/min (>60) Glucose Level 171 MG/DL (74-106) 154 MG/DL (74-106) Lactic Acid Level 0.70 mmol/L (0.4-2.0) 0.70 mmol/L (0.4-2.0) Calcium Level 8.4 MG/DL (8.5-10.1) 8.1 MG/DL (8.5-10.1) Phosphorus Level 3.5 MG/DL (2.5-4.9) 4.3 MG/DL (2.5-4.9) Magnesium Level 2.0 MG/DL (1.8-2.4) 1.8 MG/DL (1.8-2.4) Total Bilirubin 0.3 MG/DL (0.2-1.0) 0.3 MG/DL (0.2-1.0) Aspartate Amino Transf (AST/SGOT) 20 U/L (15-37) 27 U/L (15-37) Alanine Aminotransferase (ALT/SGPT) 17 U/L (12-78) 18 U/L (12-78) Alkaline Phosphatase 73 U/L (46-116) 56 U/L (46-116) Total Creatine Kinase 199 U/L (26-308) 358 U/L (26-308) Creatine Kinase MB 0.9 NG/ML (0.0-3.6) Creatine Kinase MB Relative Index 0.4 Troponin I 0.062 ng/mL (0.000-0.056) 0.100 ng/mL (0.000-0.056) Pro-B-Type Natriuretic Peptide 2085 pg/mL (0-125) 2064 pg/mL (0-125) Total Protein 7.3 G/DL (6.4-8.2) 6.6 G/DL (6.4-8.2) Albumin 3.0 G/DL (3.4-5.0) 2.7 G/DL (3.4-5.0) Globulin 4.3 g/dL 3.9 g/dL Albumin/Globulin Ratio 0.7 (1.0-2.7) 0.7 (1.0-2.7) Lipase 130 U/L (73-393) Urine Random Sodium 90 mmol/L (20-110) D-Dimer 1.23 mg/L FEU (0.00-0.49) Hemoglobin A1c 7.5 % (4.3-6.0) Uric Acid 5.4 MG/DL (2.6-7.2) Iron Level 20 ug/dL (50-175) Total Iron Binding Capacity 201 ug/dL (250-450) Percent Iron Saturation 10 % (15-50) Unsaturated Iron Binding 181 ug/dL (112-346) Ferritin 117 NG/ML (8-388) Gamma Glutamyl Transpeptidase 20 U/L (5-85) Lactate Dehydrogenase 201 U/L (81-234) C-Reactive Protein, Quantitative 1.6 mg/dL (0.00-0.90) Triglycerides Level 52 MG/DL (30-150) Cholesterol Level 120 MG/DL (< 200) LDL Cholesterol 59 mg/dL (<100) HDL Cholesterol 44 MG/DL (40-60) Cholesterol/HDL Ratio 2.7 (3.3-4.4) Vitamin B12 Level 310 PG/ML (193-986) Folate 18.5 NG/ML (8.6-58.9) Thyroid Stimulating Hormone (TSH) 0.998 uiU/mL (0.358-3.740) Test 11/10/19 05:10 White Blood Count 4.6 K/UL (4.8-10.8) Red Blood Count 3.31 M/UL (4.70-6.10) Hemoglobin 9.2 G/DL (14.2-18.0) Hematocrit 27.9 % (42.0-52.0) Mean Corpuscular Volume 84 FL (80-99) Mean Corpuscular Hemoglobin 27.9 PG (27.0-31.0) Mean Corpuscular Hemoglobin Concent 33.1 G/DL (32.0-36.0) Red Cell Distribution Width 12.3 % (11.6-14.8) Platelet Count 136 K/UL (150-450) Mean Platelet Volume 7.7 FL (6.5-10.1) Neutrophils (%) (Auto) % (45.0-75.0) Lymphocytes (%) (Auto) % (20.0-45.0) Monocytes (%) (Auto) % (1.0-10.0) Eosinophils (%) (Auto) % (0.0-3.0) Basophils (%) (Auto) % (0.0-2.0) Differential Total Cells Counted 100 Neutrophils % (Manual) 48 % (45-75) Lymphocytes % (Manual) 41 % (20-45) Monocytes % (Manual) 11 % (1-10) Eosinophils % (Manual) 0 % (0-3) Basophils % (Manual) 0 % (0-2) Band Neutrophils 0 % (0-8) Platelet Estimate Decreased Platelet Morphology Normal Hypochromasia 1+ Height (Feet): 5 Height (Inches): 10.00 Weight (Pounds): 260 Objective vitals: noted ENT: dry mucus membranes Neck: limited range of motion Respiratory: decreased breath sounds Cardiovascular: normal peripheral pulses, rrr Gastrointestinal: normal bowel sounds, soft, tenderness - suprapubic Musculoskeletal: decreased range of motion Neurologic: normal inspection, alert, responsive Psychiatric: normal inspection Skin: normal inspection, normal color Cesar Singh MD Nov 11, 2019 05:59
[2019-11-11] MEDS: NovoLOG Insulin Flexpen SUBQ SCH ×4 (06:30→21:00)
[2019-11-11] MEDS: HydrALAZINE 50mg tab ORAL SCH ×3 (06:55→21:10)
[2019-11-11 07:28] LABS: BASOPHILS % (AUTO) 0.7 % (0.0-2.0); EOSINOPHILS % (AUTO) 0.7 % (0.0-3.0); HEMATOCRIT 25.6 % (42.0-52.0); HEMOGLOBIN 8.5 G/DL (14.2-18.0); LYMPHOCYTES % (AUTO) 21.2 % (20.0-45.0); MEAN CORPUSCULAR VOLUME 84 FL (80-99); MONOCYTES % (AUTO) 14.6 % (1.0-10.0); NEUTROPHILS % (AUTO) 62.9 % (45.0-75.0); PLATELET COUNT 137 K/UL (150-450); RED BLOOD COUNT 3.04 M/UL (4.70-6.10); RED CELL DISTRIBUTION WIDTH 12.1 % (11.6-14.8); WHITE BLOOD COUNT 5.8 K/UL (4.8-10.8)
[2019-11-11 08:00] VITALS: BP 162/65
[2019-11-11 08:09] LABS: ALANINE AMINOTRANSFERASE 25 U/L (12-78); ALBUMIN 2.6 G/DL (3.4-5.0); ALBUMIN/GLOBULIN RATIO 0.6 (1.0-2.7); ALKALINE PHOSPHATASE 58 U/L (46-116); ANION GAP 11 mmol/L (5-15); ASPARTATE AMINO TRANSFERASE 29 U/L (15-37); BILIRUBIN,TOTAL 0.4 MG/DL (0.2-1.0); BLOOD UREA NITROGEN 22 mg/dL (7-18); CALCIUM 7.4 MG/DL (8.5-10.1); CARBON DIOXIDE 24 MMOL/L (21-32); CHLORIDE 107 MMOL/L (98-107); CREATININE 2.3 MG/DL (0.55-1.30); PHOSPHORUS 3.7 MG/DL (2.5-4.9); POTASSIUM 3.4 MMOL/L (3.5-5.1); SODIUM 142 MMOL/L (136-145)
--- NOTE | 2019-11-11 08:10 | NUR ---
NURSE NOTES: Patient stable, AOx4 with no complaints and no s/sx of pain or distress. RR even and unlabored on RA. Breakfast provided. Side rails upx2, call light within reach, bed low and locked. IV fluids infusing. Will continue to monitor.
[2019-11-11] MEDS: Docusate 100mg cap ORAL SCH ×3 (08:59→17:29)
[2019-11-11] MEDS: Bethanechol 25mg Tab ORAL SCH ×3 (09:00→17:28)
[2019-11-11] MEDS: Tamsulosin 0.4mg cap ORAL SCH ×2 (09:01→17:29)
[2019-11-11] MEDS: Nateglinide 60mg tab ORAL SCH ×3 (09:01→17:28)
[2019-11-11] MEDS: HydrALAZINE 25mg tab ORAL PRN (09:05)
[2019-11-11] MEDS: Levemir Flexpen SUBQ SCH (09:34)
--- NOTE | 2019-11-11 10:50 | Pulmonology Progress Note ---
Assessment/Plan Assessment/Plan IMPRESSION: 1. Fever. 2. Positive COVID-19 pneumonia. 3. Multiple medical problems. 4. Normoxemia DISCUSSION: Continue current medications and care. Broad spectrum antibiotics. 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 Has positive COVID-19. Saturating well on RA Bill Westfall M.D. Subjective ROS Limited/Unobtainable: Yes Interval Events: None new HEENT: Repors: no symptoms Respiratory: Reports: no symptoms Cardiovascular: Reports: no symptoms Gastrointestinal/Abdominal: Reports: no symptoms Genitourinary: Reports: no symptoms Allergies: Coded Allergies: No Known Allergies (Unverified , 05/27/15) Objective Last 24 Hour Vital Signs Date Time Temp Pulse Resp B/P (MAP) Pulse Ox O2 Delivery O2 Flow Rate FiO2 11/11/19 09:05 162/65 11/11/19 09:00 81 162/65 11/11/19 08:00 98.6 86 18 162/65 (97) 96 11/11/19 08:00 81 11/11/19 06:55 154/61 11/11/19 04:00 80 11/11/19 04:00 98.4 84 24 154/61 (92) 95 11/11/19 00:00 83 11/11/19 00:00 98.2 77 27 153/80 (104) 96 11/10/19 21:00 Room Air 11/10/19 20:41 152/54 11/10/19 20:00 98.6 86 19 152/54 (86) 95 11/10/19 20:00 78 11/10/19 17:46 77 164/74 11/10/19 17:46 164/74 11/10/19 16:00 76 11/10/19 16:00 96.7 77 19 164/74 (104) 97 11/10/19 14:40 174/80 11/10/19 12:31 68 174/80 11/10/19 12:00 98.2 62 20 174/80 (111) 96 11/10/19 12:00 70 Intake and Output 11/10/19 11/11/19 19:00 07:00 Intake Total 590 ml Output Total 1200 ml 1800 ml Balance -610 ml -1800 ml Intake Oral 140 ml IV Total 450 ml Output Urine Total 1200 ml 1800 ml # Voids 3 # Bowel Movements 2 General Appearance: no acute distress HEENT: mucous membranes moist Respiratory/Chest: chest wall non-tender, lungs clear Cardiovascular: normal peripheral pulses Abdomen: soft, non tender Extremities: no edema Neurologic/Psychiatric: other - sleeping Microbiology Date/Time Source Procedure Growth Status 11/08/19 12:35 Blood Blood Culture - Preliminary NO GROWTH AFTER 48 HOURS Resulted 11/08/19 12:20 Blood Blood Culture - Preliminary NO GROWTH AFTER 48 HOURS Resulted 11/08/19 18:00 Nasal Nares MRSA Culture - Final Staphylococcus Aureus - Mrsa Complete 11/08/19 12:35 Nasopharynx Coronavirus COVID-19 PCR ([facility]) - Final Complete 11/08/19 12:35 Urine,Clean Catch Urine Culture - Final Escherichia Coli Complete 11/08/19 18:00 Rectum - Final NO CARBAPENEM-RESISTANT ENTEROBACTERI... Complete 11/08/19 18:00 Rectum VRE Culture - Final NO VANCOMYCIN RESISTANT ENTEROCOCCUS ... Complete Laboratory Tests 11/11/19 05:29: White Blood Count 5.8, Red Blood Count 3.04L, Hemoglobin 8.5L, Hematocrit 25.6L , Mean Corpuscular Volume 84, Mean Corpuscular Hemoglobin 28.1, Mean Corpuscular Hemoglobin Concent 33.3, Red Cell Distribution Width 12.1, Platelet Count 137L, Mean Platelet Volume 8.1, Neutrophils (%) (Auto) 62.9, Lymphocytes ( %) (Auto) 21.2, Monocytes (%) (Auto) 14.6H, Eosinophils (%) (Auto) 0.7, Basophils (%) (Auto) 0.7, D-Dimer 0.77H, Sodium Level 142, Potassium Level 3.4L , Chloride Level 107, Carbon Dioxide Level 24, Anion Gap 11, Blood Urea Nitrogen 22H, Creatinine 2.3H, Estimat Glomerular Filtration Rate 32.6, Glucose Level 183H, Uric Acid 5.3, Calcium Level 7.4L, Phosphorus Level 3.7, Magnesium Level 1.8, Total Bilirubin 0.4, Aspartate Amino Transf (AST/SGOT) 29, Alanine Aminotransferase (ALT/SGPT) 25, Alkaline Phosphatase 58, Lactate Dehydrogenase 250H, C-Reactive Protein, Quantitative 1.0H, Total Protein 6.7, Albumin 2.6L, Globulin 4.1, Albumin/Globulin Ratio 0.6L Current Medications Medications (Trade) Dose Ordered Sig/Mayank Route PRN Reason Start Time Stop Time Status Last Admin Dose Admin Acetaminophen (Tylenol) 500 mg Q4H PRN ORAL Mild Pain/Temp >100.5 11/08/19 21:45 12/08/19 21:44 Bethanechol Chloride (Urecholine) 25 mg THREE TIMES A DAY ORAL 11/09/19 09:00 12/09/19 08:59 11/11/19 09:00 Ceftriaxone Sodium 1 gm/ Dextrose 55 ml @ 110 mls/hr Q24H IVPB 11/09/19 14:00 11/16/19 13:59 11/10/19 14:40 Clonidine HCl (Catapres Tab) 0.1 mg Q6H PRN ORAL For High Blood Pressure 11/10/19 19:27 02/08/20 19:26 Dextrose (Dextrose 50%) 25 ml Q30M PRN IV Hypoglycemia 11/08/19 21:45 02/06/20 21:44 Dextrose (Dextrose 50%) 50 ml Q30M PRN IV Hypoglycemia 11/08/19 21:45 02/06/20 21:44 Docusate Sodium (Colace) 100 mg THREE TIMES A DAY ORAL 11/09/19 18:00 12/09/19 17:59 11/11/19 08:59 Epoetin Mohit (Epoetin Mohit-EPBX(NON ESRD)) 6,000 unit -SUN SUBQ 11/10/19 21:00 02/08/20 20:59 11/10/19 20:41 Finasteride (Proscar) 5 mg DAILY ORAL 11/09/19 09:00 02/07/20 08:59 11/11/19 09:01 Hydralazine HCl (Apresoline) 25 mg Q4H PRN ORAL bp over 160 syst 11/08/19 22:30 02/06/20 22:29 11/11/19 09:05 Hydralazine HCl (Apresoline) 75 mg Q8HR ORAL 11/10/19 14:00 02/07/20 13:59 11/11/19 06:55 Insulin Aspart (NovoLOG) BEFORE MEALS AND HS SUBQ 11/08/19 23:00 02/07/20 22:59 11/11/19 06:30 Insulin Detemir (Levemir) 14 units Q24H SUBQ 11/10/19 09:00 02/07/20 08:59 11/11/19 09:34 Mirtazapine (Remeron) 7.5 mg BEDTIME ORAL 11/08/19 23:00 02/06/20 22:59 11/10/19 20:42 Nateglinide (Starlix) 120 mg THREE TIMES A DAY ORAL 11/09/19 09:00 12/09/19 08:59 11/11/19 09:01 Nifedipine (Procardia XL) 30 mg BID ORAL 11/10/19 18:00 12/10/19 17:59 11/11/19 09:00 Pantoprazole (Protonix) 40 mg BID ORAL 11/09/19 09:00 12/09/19 08:59 11/11/19 09:01 Sodium Chloride 1,000 ml @ 75 mls/hr [id number] IV 11/09/19 15:00 12/09/19 14:59 11/11/19 02:22 Tamsulosin HCl (Flomax) 0.4 mg BID ORAL 11/09/19 18:00 12/09/19 20:59 11/11/19 09:01 Bill Westfall MD Nov 11, 2019 10:50
--- NOTE | 2019-11-11 11:51 | Infectious Diseases Prog Note ---
Assessment/Plan Assessment/Plan IMPRESSION: E. coli UTI COVID19, mild symptoms diabetes mellitus, hypertension, anemia, Right eye glaucoma. Acute renal failure RECOMMENDATION: Continue ceftriaxone. Subjective ROS Limited/Unobtainable: Yes Constitutional: Denies: fever Respiratory: Reports: dry cough Allergies: Coded Allergies: No Known Allergies (Unverified , 05/27/15) Objective Vital Signs Last 24 Hour Vital Signs Date Time Temp Pulse Resp B/P (MAP) Pulse Ox O2 Delivery O2 Flow Rate FiO2 11/11/19 09:05 162/65 11/11/19 09:00 81 162/65 11/11/19 08:00 98.6 86 18 162/65 (97) 96 11/11/19 08:00 81 11/11/19 06:55 154/61 11/11/19 04:00 80 11/11/19 04:00 98.4 84 24 154/61 (92) 95 11/11/19 00:00 83 11/11/19 00:00 98.2 77 27 153/80 (104) 96 11/10/19 21:00 Room Air 11/10/19 20:41 152/54 11/10/19 20:00 98.6 86 19 152/54 (86) 95 11/10/19 20:00 78 11/10/19 17:46 77 164/74 11/10/19 17:46 164/74 11/10/19 16:00 76 11/10/19 16:00 96.7 77 19 164/74 (104) 97 11/10/19 14:40 174/80 11/10/19 12:31 68 174/80 11/10/19 12:00 98.2 62 20 174/80 (111) 96 11/10/19 12:00 70 Height (Feet): 5 Height (Inches): 10.00 Weight (Pounds): 260 General Appearance: no acute distress HEENT: mucous membranes moist Respiratory/Chest: lungs clear Cardiovascular: normal rate Abdomen: soft, non tender Extremities: no edema Neurologic/Psychiatric: alert, responsive Microbiology Date/Time Source Procedure Growth Status 11/08/19 12:35 Blood Blood Culture - Preliminary NO GROWTH AFTER 48 HOURS Resulted 11/08/19 12:20 Blood Blood Culture - Preliminary NO GROWTH AFTER 48 HOURS Resulted 11/08/19 18:00 Nasal Nares MRSA Culture - Final Staphylococcus Aureus - Mrsa Complete 11/08/19 12:35 Nasopharynx Coronavirus COVID-19 PCR ([facility]) - Final Complete 11/08/19 12:35 Urine,Clean Catch Urine Culture - Final Escherichia Coli Complete 11/08/19 18:00 Rectum - Final NO CARBAPENEM-RESISTANT ENTEROBACTERI... Complete 11/08/19 18:00 Rectum VRE Culture - Final NO VANCOMYCIN RESISTANT ENTEROCOCCUS ... Complete Laboratory Tests Test 11/11/19 05:29 White Blood Count 5.8 K/UL (4.8-10.8) Red Blood Count 3.04 M/UL (4.70-6.10) L Hemoglobin 8.5 G/DL (14.2-18.0) L Hematocrit 25.6 % (42.0-52.0) L Mean Corpuscular Volume 84 FL (80-99) Mean Corpuscular Hemoglobin 28.1 PG (27.0-31.0) Mean Corpuscular Hemoglobin Concent 33.3 G/DL (32.0-36.0) Red Cell Distribution Width 12.1 % (11.6-14.8) Platelet Count 137 K/UL (150-450) L Mean Platelet Volume 8.1 FL (6.5-10.1) Neutrophils (%) (Auto) 62.9 % (45.0-75.0) Lymphocytes (%) (Auto) 21.2 % (20.0-45.0) Monocytes (%) (Auto) 14.6 % (1.0-10.0) H Eosinophils (%) (Auto) 0.7 % (0.0-3.0) Basophils (%) (Auto) 0.7 % (0.0-2.0) D-Dimer 0.77 mg/L FEU (0.00-0.49) H Sodium Level 142 MMOL/L (136-145) Potassium Level 3.4 MMOL/L (3.5-5.1) L Chloride Level 107 MMOL/L (98-107) Carbon Dioxide Level 24 MMOL/L (21-32) Anion Gap 11 mmol/L (5-15) Blood Urea Nitrogen 22 mg/dL (7-18) H Creatinine 2.3 MG/DL (0.55-1.30) H Estimat Glomerular Filtration Rate 32.6 mL/min (>60) Glucose Level 183 MG/DL (74-106) H Uric Acid 5.3 MG/DL (2.6-7.2) Calcium Level 7.4 MG/DL (8.5-10.1) L Phosphorus Level 3.7 MG/DL (2.5-4.9) Magnesium Level 1.8 MG/DL (1.8-2.4) Total Bilirubin 0.4 MG/DL (0.2-1.0) Aspartate Amino Transf (AST/SGOT) 29 U/L (15-37) Alanine Aminotransferase (ALT/SGPT) 25 U/L (12-78) Alkaline Phosphatase 58 U/L (46-116) Lactate Dehydrogenase 250 U/L (81-234) H C-Reactive Protein, Quantitative 1.0 mg/dL (0.00-0.90) H Total Protein 6.7 G/DL (6.4-8.2) Albumin 2.6 G/DL (3.4-5.0) L Globulin 4.1 g/dL Albumin/Globulin Ratio 0.6 (1.0-2.7) L Current Medications Medications (Trade) Dose Ordered Sig/Mayank Route PRN Reason Start Time Stop Time Status Last Admin Dose Admin Acetaminophen (Tylenol) 500 mg Q4H PRN ORAL Mild Pain/Temp >100.5 11/08/19 21:45 12/08/19 21:44 Bethanechol Chloride (Urecholine) 25 mg THREE TIMES A DAY ORAL 11/09/19 09:00 12/09/19 08:59 11/11/19 09:00 Ceftriaxone Sodium 1 gm/ Dextrose 55 ml @ 110 mls/hr Q24H IVPB 11/09/19 14:00 11/16/19 13:59 11/10/19 14:40 Clonidine HCl (Catapres Tab) 0.1 mg Q6H PRN ORAL For High Blood Pressure 11/10/19 19:27 02/08/20 19:26 Dextrose (Dextrose 50%) 25 ml Q30M PRN IV Hypoglycemia 11/08/19 21:45 02/06/20 21:44 Dextrose (Dextrose 50%) 50 ml Q30M PRN IV Hypoglycemia 11/08/19 21:45 02/06/20 21:44 Docusate Sodium (Colace) 100 mg THREE TIMES A DAY ORAL 11/09/19 18:00 12/09/19 17:59 11/11/19 08:59 Epoetin Mohit (Epoetin Mohit-EPBX(NON ESRD)) 6,000 unit SUN- SUBQ 11/10/19 21:00 02/08/20 20:59 11/10/19 20:41 Finasteride (Proscar) 5 mg DAILY ORAL 11/09/19 09:00 02/07/20 08:59 11/11/19 09:01 Hydralazine HCl (Apresoline) 25 mg Q4H PRN ORAL bp over 160 syst 11/08/19 22:30 02/06/20 22:29 11/11/19 09:05 Hydralazine HCl (Apresoline) 75 mg Q8HR ORAL 11/10/19 14:00 02/07/20 13:59 11/11/19 06:55 Insulin Aspart (NovoLOG) BEFORE MEALS AND HS SUBQ 11/08/19 23:00 02/07/20 22:59 11/11/19 06:30 Insulin Detemir (Levemir) 14 units Q24H SUBQ 11/10/19 09:00 02/07/20 08:59 11/11/19 09:34 Mirtazapine (Remeron) 7.5 mg BEDTIME ORAL 11/08/19 23:00 02/06/20 22:59 11/10/19 20:42 Nateglinide (Starlix) 120 mg THREE TIMES A DAY ORAL 11/09/19 09:00 12/09/19 08:59 11/11/19 09:01 Nifedipine (Procardia XL) 30 mg BID ORAL 11/10/19 18:00 12/10/19 17:59 11/11/19 09:00 Pantoprazole (Protonix) 40 mg BID ORAL 11/09/19 09:00 12/09/19 08:59 11/11/19 09:01 Sodium Chloride 1,000 ml @ 75 mls/hr [id number] IV 11/09/19 15:00 12/09/19 14:59 11/11/19 02:22 Tamsulosin HCl (Flomax) 0.4 mg BID ORAL 11/09/19 18:00 12/09/19 20:59 11/11/19 09:01 Viktor Miranda MD Nov 11, 2019 11:51
[2019-11-11 12:00] VITALS: BP 151/74
[2019-11-11] MEDS: cefTRIAXone 1 GM in D5W 55 ML IVPB SCH (14:11)
--- NOTE | 2019-11-11 15:10 | Nephrology Progress Note ---
Assessment/Plan Problem List: (1) Acute on chronic renal failure (2) BPH (benign prostatic hyperplasia) (3) Anemia (4) Sepsis (5) COVID-19 virus detected Assessment Mr. Melton is admitted with pneumonia and UTI and exposure to COVID-19 virus, and the test is positive From renal standpoint of view: Acute on chronic renal failure: Serum creatinine has risen from baseline of 1.6- 2.5 Diabetic nephropathy BPH Anemia Hypertension Plan Positive for COVID-19 Adjust blood pressure medication Slow hydration Flomax twice daily Antibiotics per ID Will review the 2D echocardiogram and ultrasound which was done previously Continue renal parameters Adjust blood pressure medication Avoid nephrotoxics Per orders Subjective ROS Limited/Unobtainable: No Constitutional: Reports: malaise Objective Objective Last 24 Hour Vital Signs Date Time Temp Pulse Resp B/P (MAP) Pulse Ox O2 Delivery O2 Flow Rate FiO2 11/11/19 14:09 151/74 11/11/19 09:05 162/65 11/11/19 09:00 81 162/65 11/11/19 08:00 98.6 86 18 162/65 (97) 96 11/11/19 08:00 81 11/11/19 06:55 154/61 11/11/19 04:00 80 11/11/19 04:00 98.4 84 24 154/61 (92) 95 11/11/19 00:00 83 11/11/19 00:00 98.2 77 27 153/80 (104) 96 11/10/19 21:00 Room Air 11/10/19 20:41 152/54 11/10/19 20:00 98.6 86 19 152/54 (86) 95 11/10/19 20:00 78 11/10/19 17:46 77 164/74 11/10/19 17:46 164/74 11/10/19 16:00 76 11/10/19 16:00 96.7 77 19 164/74 (104) 97 Intake and Output 11/10/19 11/11/19 19:00 07:00 Intake Total 590 ml Output Total 1200 ml 1800 ml Balance -610 ml -1800 ml Intake Oral 140 ml IV Total 450 ml Output Urine Total 1200 ml 1800 ml # Voids 3 # Bowel Movements 2 Laboratory Tests 11/11/19 05:29: White Blood Count 5.8, Red Blood Count 3.04L, Hemoglobin 8.5L, Hematocrit 25.6L , Mean Corpuscular Volume 84, Mean Corpuscular Hemoglobin 28.1, Mean Corpuscular Hemoglobin Concent 33.3, Red Cell Distribution Width 12.1, Platelet Count 137L, Mean Platelet Volume 8.1, Neutrophils (%) (Auto) 62.9, Lymphocytes ( %) (Auto) 21.2, Monocytes (%) (Auto) 14.6H, Eosinophils (%) (Auto) 0.7, Basophils (%) (Auto) 0.7, D-Dimer 0.77H, Sodium Level 142, Potassium Level 3.4L , Chloride Level 107, Carbon Dioxide Level 24, Anion Gap 11, Blood Urea Nitrogen 22H, Creatinine 2.3H, Estimat Glomerular Filtration Rate 32.6, Glucose Level 183H, Uric Acid 5.3, Calcium Level 7.4L, Phosphorus Level 3.7, Magnesium Level 1.8, Total Bilirubin 0.4, Aspartate Amino Transf (AST/SGOT) 29, Alanine Aminotransferase (ALT/SGPT) 25, Alkaline Phosphatase 58, Lactate Dehydrogenase 250H, C-Reactive Protein, Quantitative 1.0H, Total Protein 6.7, Albumin 2.6L, Globulin 4.1, Albumin/Globulin Ratio 0.6L Height (Feet): 5 Height (Inches): 10.00 Weight (Pounds): 260 General Appearance: no apparent distress Cardiovascular: tachycardia - Slightly Respiratory/Chest: decreased breath sounds Abdomen: distended, other - Obese Objective No change Rodrigue Mackenzie MD Nov 11, 2019 15:10
[2019-11-11 16:00] VITALS: BP 155/61
--- NOTE | 2019-11-11 19:10 | NUR ---
NURSE NOTES: Received report from BENOIT Marie. Patient stable, awake, alert, and responsive. AOx4. Hard of hearing, but able to communicate needs. IV on RW #20g intact and flushed; running 1/2 NS at 75ml/hr. LW @20g, intact and flushed; no erythema, bleeding, and infiltration. Skin intact. Denies any pain or discomfort at this time. Resting at semi-lyman's position, self-repositioning. No signs of acute distress. Bed in lowest position, brakes engaged, bed rails raised x2. Call light and belongings placed within reach. Will continue to monitor.
[2019-11-11 20:00] VITALS: BP 134/56
--- NOTE | 2019-11-11 20:03 | NUR ---
HAND-OFF: Report given to Cortes LABOY. Patient stable. Plan of care endorsed.
--- NOTE | 2019-11-11 20:23 | General Progress Note ---
Assessment/Plan Problem List: (1) Sepsis ICD Codes: A41.9 - Sepsis, unspecified organism SNOMED: 51922158 (2) Diabetes ICD Codes: E11.9 - Type 2 diabetes mellitus without complications SNOMED: 86075373 (3) BPH (benign prostatic hyperplasia) ICD Codes: N40.0 - Benign prostatic hyperplasia without lower urinary tract symptoms SNOMED: 610343977 (4) Anemia ICD Codes: D64.9 - Anemia, unspecified SNOMED: 158810131 (5) Acute on chronic renal failure ICD Codes: N17.9 - Acute kidney failure, unspecified; N18.9 - Chronic kidney disease, unspecified SNOMED: 026358725 (6) Fever ICD Codes: R50.9 - Fever, unspecified SNOMED: 559342241 Qualifiers: Qualified Codes: R50.9 - Fever, unspecified (7) Suspected COVID-19 virus infection ICD Codes: Z20.828 - Contact with and (suspected) exposure to other viral communicable diseases SNOMED: 165510308 (8) UTI (urinary tract infection) ICD Codes: N39.0 - Urinary tract infection, site not specified SNOMED: 95620715 Qualifiers: Qualified Codes: N39.0 - Urinary tract infection, site not specified (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 SNOMED: 17855552, 855658764 (10) Hypertension ICD Codes: I10 - Essential (primary) hypertension SNOMED: 01069285 Status: progressing Assessment/Plan: low k azotemia dm cri is covid positive pna afebrile worsening anemia Subjective ROS Limited/Unobtainable: Yes Allergies: Coded Allergies: No Known Allergies (Unverified , 05/27/15) Objective Last 24 Hour Vital Signs Date Time Temp Pulse Resp B/P (MAP) Pulse Ox O2 Delivery O2 Flow Rate FiO2 11/11/19 17:28 83 155/61 11/11/19 16:00 98.6 83 19 155/61 (92) 96 11/11/19 16:00 90 11/11/19 14:09 151/74 11/11/19 12:00 79 11/11/19 12:00 96.7 78 20 151/74 (99) 98 11/11/19 09:05 162/65 11/11/19 09:00 Room Air 11/11/19 09:00 81 162/65 11/11/19 08:00 98.6 86 18 162/65 (97) 96 11/11/19 08:00 81 11/11/19 06:55 154/61 11/11/19 04:00 80 11/11/19 04:00 98.4 84 24 154/61 (92) 95 11/11/19 00:00 83 11/11/19 00:00 98.2 77 27 153/80 (104) 96 11/10/19 21:00 Room Air 11/10/19 20:41 152/54 Intake and Output 11/10/19 11/11/19 19:00 07:00 Intake Total 590 ml 75 ml Output Total 1200 ml 1800 ml Balance -610 ml -1725 ml Intake Oral 140 ml IV Total 450 ml 75 ml Output Urine Total 1200 ml 1800 ml # Voids 3 # Bowel Movements 2 Laboratory Tests 11/11/19 05:29: White Blood Count 5.8, Red Blood Count 3.04L, Hemoglobin 8.5L, Hematocrit 25.6L , Mean Corpuscular Volume 84, Mean Corpuscular Hemoglobin 28.1, Mean Corpuscular Hemoglobin Concent 33.3, Red Cell Distribution Width 12.1, Platelet Count 137L, Mean Platelet Volume 8.1, Neutrophils (%) (Auto) 62.9, Lymphocytes ( %) (Auto) 21.2, Monocytes (%) (Auto) 14.6H, Eosinophils (%) (Auto) 0.7, Basophils (%) (Auto) 0.7, D-Dimer 0.77H, Sodium Level 142, Potassium Level 3.4L , Chloride Level 107, Carbon Dioxide Level 24, Anion Gap 11, Blood Urea Nitrogen 22H, Creatinine 2.3H, Estimat Glomerular Filtration Rate 32.6, Glucose Level 183H, Uric Acid 5.3, Calcium Level 7.4L, Phosphorus Level 3.7, Magnesium Level 1.8, Total Bilirubin 0.4, Aspartate Amino Transf (AST/SGOT) 29, Alanine Aminotransferase (ALT/SGPT) 25, Alkaline Phosphatase 58, Lactate Dehydrogenase 250H, C-Reactive Protein, Quantitative 1.0H, Total Protein 6.7, Albumin 2.6L, Globulin 4.1, Albumin/Globulin Ratio 0.6L Height (Feet): 5 Height (Inches): 10.00 Weight (Pounds): 260 Aliyah Miller MD Nov 11, 2019 20:23
--- NOTE | 2019-11-11 21:50 | Cardiology Progress Note ---
Assessment/Plan Assessment/Plan 1. Elevated troponin I level in this patient likely acute HFpEF in view of CKD, HTN and age. Continue ASA and statins. 2. Severe with HERMINIO at 0.8 cm2. 3. DM, continue ASA and statins. 4. Hypertension secondary renal parenchymal disease, stage II, continue hydralazine, nifedipine, start minoxidil, clonidine as needed. 5. CKD. 6. COVID-19 pneumonia on Ceftriaxone, ID follow-up. Subjective Subjective Sinus rhythm at rate of 83. Objective Last 24 Hour Vital Signs Date Time Temp Pulse Resp B/P (MAP) Pulse Ox O2 Delivery O2 Flow Rate FiO2 11/11/19 21:10 134/56 11/11/19 17:28 83 155/61 11/11/19 16:00 98.6 83 19 155/61 (92) 96 11/11/19 16:00 90 11/11/19 14:09 151/74 11/11/19 12:00 79 11/11/19 12:00 96.7 78 20 151/74 (99) 98 11/11/19 09:05 162/65 11/11/19 09:00 Room Air 11/11/19 09:00 81 162/65 11/11/19 08:00 98.6 86 18 162/65 (97) 96 11/11/19 08:00 81 11/11/19 06:55 154/61 11/11/19 04:00 80 11/11/19 04:00 98.4 84 24 154/61 (92) 95 11/11/19 00:00 83 11/11/19 00:00 98.2 77 27 153/80 (104) 96 Intake and Output 11/10/19 11/11/19 19:00 07:00 Intake Total 590 ml 75 ml Output Total 1200 ml 1800 ml Balance -610 ml -1725 ml Intake Oral 140 ml IV Total 450 ml 75 ml Output Urine Total 1200 ml 1800 ml # Voids 3 # Bowel Movements 2 2D Echo: EF 55%, HERMINIO 0.8cm2, RVSP 48, mod MR, Mild AR/PA, Grade I LVDD Laboratory Tests Test 11/11/19 05:29 White Blood Count 5.8 K/UL (4.8-10.8) Red Blood Count 3.04 M/UL (4.70-6.10) L Hemoglobin 8.5 G/DL (14.2-18.0) L Hematocrit 25.6 % (42.0-52.0) L Mean Corpuscular Volume 84 FL (80-99) Mean Corpuscular Hemoglobin 28.1 PG (27.0-31.0) Mean Corpuscular Hemoglobin Concent 33.3 G/DL (32.0-36.0) Red Cell Distribution Width 12.1 % (11.6-14.8) Platelet Count 137 K/UL (150-450) L Mean Platelet Volume 8.1 FL (6.5-10.1) Neutrophils (%) (Auto) 62.9 % (45.0-75.0) Lymphocytes (%) (Auto) 21.2 % (20.0-45.0) Monocytes (%) (Auto) 14.6 % (1.0-10.0) H Eosinophils (%) (Auto) 0.7 % (0.0-3.0) Basophils (%) (Auto) 0.7 % (0.0-2.0) D-Dimer 0.77 mg/L FEU (0.00-0.49) H Sodium Level 142 MMOL/L (136-145) Potassium Level 3.4 MMOL/L (3.5-5.1) L Chloride Level 107 MMOL/L (98-107) Carbon Dioxide Level 24 MMOL/L (21-32) Anion Gap 11 mmol/L (5-15) Blood Urea Nitrogen 22 mg/dL (7-18) H Creatinine 2.3 MG/DL (0.55-1.30) H Estimat Glomerular Filtration Rate 32.6 mL/min (>60) Glucose Level 183 MG/DL (74-106) H Uric Acid 5.3 MG/DL (2.6-7.2) Calcium Level 7.4 MG/DL (8.5-10.1) L Phosphorus Level 3.7 MG/DL (2.5-4.9) Magnesium Level 1.8 MG/DL (1.8-2.4) Total Bilirubin 0.4 MG/DL (0.2-1.0) Aspartate Amino Transf (AST/SGOT) 29 U/L (15-37) Alanine Aminotransferase (ALT/SGPT) 25 U/L (12-78) Alkaline Phosphatase 58 U/L (46-116) Lactate Dehydrogenase 250 U/L (81-234) H C-Reactive Protein, Quantitative 1.0 mg/dL (0.00-0.90) H Total Protein 6.7 G/DL (6.4-8.2) Albumin 2.6 G/DL (3.4-5.0) L Globulin 4.1 g/dL Albumin/Globulin Ratio 0.6 (1.0-2.7) L Objective HEENT: Atraumatic and normocephalic. Anicteric. Pupils are equal, round, and reactive to light and accommodation. Extraocular muscles intact. NECK: JVP less than 5 cm. No carotid bruit. Carotid upstrokes 2+ bilaterally. CARDIOVASCULAR: Normal S1, S2. Regular rate and rhythm. 2/6 ESM at LSB, gallops, or rubs. PMI is at fourth intercostal space at the midclavicular line. LUNGS: Bibasilar crackles with diminished both lungs. ABDOMEN: Soft, nontender, nondistended. No hepatosplenomegaly. Positive bowel sounds. EXTREMITIES: No evidence of edema, clubbing, or cyanosis. Dick Payan MD Nov 11, 2019 21:50
[2019-11-11] MEDS: Minoxidil 2.5mg tab ORAL SCH (22:11)
[2019-11-12] VITALS (8 sets, daily range): BP systolic 92–171; BP diastolic 42–81
[2019-11-12] MEDS: Acetaminophen 500mg (ES) tab ORAL PRN (00:46)
--- NOTE | 2019-11-12 00:57 | NUR ---
NURSE NOTES: Called and left a message with Dr. Miller regarding patient's midnight VS: 171/81, HR: 102, RR: 31, SpO2: 92%, T: 102.4 Clonidine and Tylenol ES given as ordered. Awaiting call back. Will re-assess.
--- NOTE | 2019-11-12 01:56 | NUR ---
NURSE NOTES: Re-assessment at 0145: BP: 131/53, HR: 102, spO2: 97% on 2L per nasal cannula, T: 97.7
--- NOTE | 2019-11-12 05:47 | Hematology/Onc Progress Note ---
Assessment/Plan Assessment/Plan Assess/Recs: # Pancytopenia -- initially with Anemia of chronic disease due to underlying chronic medical issues, multifactorial, also covie19 related --> Anemia workup has been ordered --> No evidence of hemolysis is noted, peripheral smear has been reviewed. --> Hgb goal >7. Transfuse prn. --> Epogen or iron at this time is not particularly indicated --> Medications have been reviewed --> plt 136-->138 --> wbc 3.6-->5 # Thrombocytopenia is likely due to UTI with sepsis --> management as per id --> CT of abdomen pelvis without contrast read by radiology showed bladder thickening and possible cystitis prior admission --> as per id recs --> plt trend 174-->138 --> smear is noted # Fever with cough --> covid+ --> iso --> as per id --> on ctx # MISAEL on ckd --> as per renal team # DM nephropathy # BPH # Hypokalemia --> replete with k as needed The timing of this note does not necessarily reflect the time of the patient was seen. Greatly appreciate consultation! Subjective HEENT: Denies: no symptoms, eye pain, blurred vision, tearing, double vision, ear pain, ear discharge, nose pain, nose congestion, throat pain, throat swelling, mouth pain, mouth swelling, other Cardiovascular: Denies: no symptoms, chest pain, edema, irregular heart rate, lightheadedness, palpitations, syncope, other Respiratory: Denies: no symptoms, cough, shortness of breath, SOB with excertion, SOB at rest, sputum, wheezing, other Gastrointestinal/Abdominal: Denies: no symptoms, abdomen distended, abdominal pain, black stools, tarry stools, blood in stool, constipated, diarrhea, difficulty swallowing, nausea, poor appetite, poor fluid intake, rectal bleeding , vomiting, other Genitourinary: Denies: no symptoms, burning, discharge, frequency, flank pain, hematuria, incontinence, pain, urgency, other Neurologic/Psychiatric: Denies: no symptoms, anxiety, depressed, emotional problems, headache, numbness, paresthesia, pre-existing deficit, seizure, tingling, tremors, weakness, other Endocrine: Denies: no symptoms, excessive sweating, flushing, intolerance to cold, intolerance to heat, increased hunger, increased thirst, increased urine, unexplained weight gain, unexplained weight loss, other Hematologic/Lymphatic: Denies: no symptoms, anemia, easy bleeding, easy bruising, adenopathy, other Allergies: Coded Allergies: No Known Allergies (Unverified , 05/27/15) Subjective 11/09 labs reviewed, no bleeding, meds noted, seen by cards, cbc pendin 11/10 labs noted, no bleeding, serology neg, supportive care for covid19 11/11 bp high, hydralazine given overnight, on mirtaazapine, no changes Objective Objective Current Medications Medications (Trade) Dose Ordered Sig/Mayank Route PRN Reason Start Time Stop Time Status Last Admin Dose Admin Acetaminophen (Tylenol) 500 mg Q4H PRN ORAL Mild Pain/Temp >100.5 11/08/19 21:45 12/08/19 21:44 11/12/19 00:46 Aspirin (Ecotrin) 81 mg DAILY ORAL 11/12/19 09:00 12/27/19 08:59 Atorvastatin Calcium (Lipitor) 20 mg BEDTIME ORAL 11/12/19 21:00 02/10/20 20:59 Bethanechol Chloride (Urecholine) 25 mg THREE TIMES A DAY ORAL 11/09/19 09:00 12/09/19 08:59 11/11/19 17:28 Ceftriaxone Sodium 1 gm/ Dextrose 55 ml @ 110 mls/hr Q24H IVPB 11/09/19 14:00 11/16/19 13:59 11/11/19 14:11 Clonidine HCl (Catapres Tab) 0.1 mg Q4H PRN ORAL For High Blood Pressure 11/11/19 15:12 02/09/20 15:11 11/12/19 00:46 Dextrose (Dextrose 50%) 25 ml Q30M PRN IV Hypoglycemia 11/08/19 21:45 02/06/20 21:44 Dextrose (Dextrose 50%) 50 ml Q30M PRN IV Hypoglycemia 11/08/19 21:45 02/06/20 21:44 Docusate Sodium (Colace) 100 mg THREE TIMES A DAY ORAL 11/09/19 18:00 12/09/19 17:59 11/11/19 17:29 Epoetin Mohit (Epoetin Mohit-EPBX(NON ESRD)) 6,000 unit SUN-SUN-SUN SUBQ 11/10/19 21:00 02/08/20 20:59 11/10/19 20:41 Finasteride (Proscar) 5 mg DAILY ORAL 11/09/19 09:00 02/07/20 08:59 11/11/19 09:01 Hydralazine HCl (Apresoline) 100 mg Q8HR ORAL 11/11/19 22:00 02/07/20 13:59 11/11/19 21:10 Insulin Aspart (NovoLOG) BEFORE MEALS AND HS SUBQ 11/08/19 23:00 02/07/20 22:59 11/11/19 12:58 Insulin Detemir (Levemir) 14 units Q24H SUBQ 11/10/19 09:00 02/07/20 08:59 11/11/19 09:34 Minoxidil (Loniten) 2.5 mg Q12HR ORAL 11/11/19 21:30 02/09/20 21:29 11/11/19 22:11 Mirtazapine (Remeron) 7.5 mg BEDTIME ORAL 11/08/19 23:00 02/06/20 22:59 11/11/19 21:11 Nateglinide (Starlix) 120 mg THREE TIMES A DAY ORAL 11/09/19 09:00 12/09/19 08:59 11/11/19 17:28 Nifedipine (Procardia XL) 30 mg BID ORAL 11/10/19 18:00 12/10/19 17:59 11/11/19 17:28 Pantoprazole (Protonix) 40 mg BID ORAL 11/09/19 09:00 12/09/19 08:59 11/11/19 17:28 Sodium Chloride 1,000 ml @ 75 mls/hr [id number] IV 11/09/19 15:00 12/09/19 14:59 11/11/19 21:10 Tamsulosin HCl (Flomax) 0.4 mg BID ORAL 11/09/19 18:00 12/09/19 20:59 11/11/19 17:29 Last 24 Hour Vital Signs Date Time Temp Pulse Resp B/P (MAP) Pulse Ox O2 Delivery O2 Flow Rate FiO2 11/12/19 01:45 97.7 102 24 131/53 (79) 97 11/12/19 01:16 97.9 11/12/19 00:46 171/81 11/12/19 00:00 102.4 102 32 171/81 (111) 92 11/12/19 00:00 101 11/11/19 22:11 134/56 11/11/19 21:10 134/56 11/11/19 21:00 Room Air 11/11/19 20:00 99.7 89 26 134/56 (82) 92 11/11/19 20:00 91 11/11/19 17:28 83 155/61 11/11/19 16:00 98.6 83 19 155/61 (92) 96 11/11/19 16:00 90 11/11/19 14:09 151/74 11/11/19 12:00 79 11/11/19 12:00 96.7 78 20 151/74 (99) 98 11/11/19 09:05 162/65 11/11/19 09:00 Room Air 11/11/19 09:00 81 162/65 11/11/19 08:00 98.6 86 18 162/65 (97) 96 11/11/19 08:00 81 11/11/19 06:55 154/61 11/11/19 04:00 80 11/11/19 04:00 98.4 84 24 154/61 (92) 95 11/11/19 00:00 83 11/11/19 00:00 98.2 77 27 153/80 (104) 96 11/10/19 21:00 Room Air 11/10/19 20:41 152/54 11/10/19 20:00 98.6 86 19 152/54 (86) 95 11/10/19 20:00 78 11/10/19 17:46 77 164/74 11/10/19 17:46 164/74 11/10/19 16:00 76 11/10/19 16:00 96.7 77 19 164/74 (104) 97 11/10/19 14:40 174/80 11/10/19 12:31 68 174/80 11/10/19 12:00 98.2 62 20 174/80 (111) 96 11/10/19 12:00 70 11/10/19 10:14 189/75 11/10/19 10:14 63 189/75 11/10/19 09:00 Room Air 11/10/19 08:00 96.6 70 18 189/75 (113) 96 11/10/19 08:00 63 Intake and Output 11/11/19 11/12/19 19:00 07:00 Intake Total 1037.5 ml Output Total 1200 ml Balance -162.5 ml Intake Oral 120 ml IV Total 917.5 ml Output Urine Total 1200 ml # Voids 3 Labs Test 11/09/19 05:55 11/09/19 21:30 11/10/19 05:10 11/11/19 05:29 White Blood Count 4.9 K/UL (4.8-10.8) 4.6 K/UL (4.8-10.8) 5.8 K/UL (4.8-10.8) Red Blood Count 3.15 M/UL (4.70-6.10) 3.31 M/UL (4.70-6.10) 3.04 M/UL (4.70-6.10) Hemoglobin 8.9 G/DL (14.2-18.0) 9.2 G/DL (14.2-18.0) 8.5 G/DL (14.2-18.0) Hematocrit 26.7 % (42.0-52.0) 27.9 % (42.0-52.0) 25.6 % (42.0-52.0) Mean Corpuscular Volume 85 FL (80-99) 84 FL (80-99) 84 FL (80-99) Mean Corpuscular Hemoglobin 28.4 PG (27.0-31.0) 27.9 PG (27.0-31.0) 28.1 PG (27.0-31.0) Mean Corpuscular Hemoglobin Concent 33.5 G/DL (32.0-36.0) 33.1 G/DL (32.0-36.0) 33.3 G/DL (32.0-36.0) Red Cell Distribution Width 12.2 % (11.6-14.8) 12.3 % (11.6-14.8) 12.1 % (11.6-14.8) Platelet Count 138 K/UL (150-450) 136 K/UL (150-450) 137 K/UL (150-450) Mean Platelet Volume 7.1 FL (6.5-10.1) 7.7 FL (6.5-10.1) 8.1 FL (6.5-10.1) Neutrophils (%) (Auto) % (45.0-75.0) % (45.0-75.0) 62.9 % (45.0-75.0) Lymphocytes (%) (Auto) % (20.0-45.0) % (20.0-45.0) 21.2 % (20.0-45.0) Monocytes (%) (Auto) % (1.0-10.0) % (1.0-10.0) 14.6 % (1.0-10.0) Eosinophils (%) (Auto) % (0.0-3.0) % (0.0-3.0) 0.7 % (0.0-3.0) Basophils (%) (Auto) % (0.0-2.0) % (0.0-2.0) 0.7 % (0.0-2.0) Differential Total Cells Counted 100 100 Neutrophils % (Manual) 65 % (45-75) 48 % (45-75) Lymphocytes % (Manual) 24 % (20-45) 41 % (20-45) Monocytes % (Manual) 11 % (1-10) 11 % (1-10) Eosinophils % (Manual) 0 % (0-3) 0 % (0-3) Basophils % (Manual) 0 % (0-2) 0 % (0-2) Band Neutrophils 0 % (0-8) 0 % (0-8) Platelet Estimate Decreased Decreased Platelet Morphology Normal Normal Hypochromasia 3+ 1+ Anisocytosis 1+ D-Dimer 1.23 mg/L FEU (0.00-0.49) 0.77 mg/L FEU (0.00-0.49) Sodium Level 143 MMOL/L (136-145) 142 MMOL/L (136-145) Potassium Level 3.4 MMOL/L (3.5-5.1) 3.4 MMOL/L (3.5-5.1) Chloride Level 106 MMOL/L (98-107) 107 MMOL/L (98-107) Carbon Dioxide Level 26 MMOL/L (21-32) 24 MMOL/L (21-32) Anion Gap 11 mmol/L (5-15) 11 mmol/L (5-15) Blood Urea Nitrogen 23 mg/dL (7-18) 22 mg/dL (7-18) Creatinine 2.4 MG/DL (0.55-1.30) 2.3 MG/DL (0.55-1.30) Estimat Glomerular Filtration Rate 31.0 mL/min (>60) 32.6 mL/min (>60) Glucose Level 154 MG/DL (74-106) 183 MG/DL (74-106) Hemoglobin A1c 7.5 % (4.3-6.0) Lactic Acid Level 0.70 mmol/L (0.4-2.0) Uric Acid 5.4 MG/DL (2.6-7.2) 5.3 MG/DL (2.6-7.2) Calcium Level 8.1 MG/DL (8.5-10.1) 7.4 MG/DL (8.5-10.1) Phosphorus Level 4.3 MG/DL (2.5-4.9) 3.7 MG/DL (2.5-4.9) Magnesium Level 1.8 MG/DL (1.8-2.4) 1.8 MG/DL (1.8-2.4) Iron Level 20 ug/dL (50-175) Total Iron Binding Capacity 201 ug/dL (250-450) Percent Iron Saturation 10 % (15-50) Unsaturated Iron Binding 181 ug/dL (112-346) Ferritin 117 NG/ML (8-388) Total Bilirubin 0.3 MG/DL (0.2-1.0) 0.4 MG/DL (0.2-1.0) Gamma Glutamyl Transpeptidase 20 U/L (5-85) Aspartate Amino Transf (AST/SGOT) 27 U/L (15-37) 29 U/L (15-37) Alanine Aminotransferase (ALT/SGPT) 18 U/L (12-78) 25 U/L (12-78) Alkaline Phosphatase 56 U/L (46-116) 58 U/L (46-116) Lactate Dehydrogenase 201 U/L (81-234) 250 U/L (81-234) Total Creatine Kinase 358 U/L (26-308) C-Reactive Protein, Quantitative 1.6 mg/dL (0.00-0.90) 1.0 mg/dL (0.00-0.90) Pro-B-Type Natriuretic Peptide 2064 pg/mL (0-125) Total Protein 6.6 G/DL (6.4-8.2) 6.7 G/DL (6.4-8.2) Albumin 2.7 G/DL (3.4-5.0) 2.6 G/DL (3.4-5.0) Globulin 3.9 g/dL 4.1 g/dL Albumin/Globulin Ratio 0.7 (1.0-2.7) 0.6 (1.0-2.7) Triglycerides Level 52 MG/DL (30-150) Cholesterol Level 120 MG/DL (< 200) LDL Cholesterol 59 mg/dL (<100) HDL Cholesterol 44 MG/DL (40-60) Cholesterol/HDL Ratio 2.7 (3.3-4.4) Vitamin B12 Level 310 PG/ML (193-986) Folate 18.5 NG/ML (8.6-58.9) Thyroid Stimulating Hormone (TSH) 0.998 uiU/mL (0.358-3.740) Troponin I 0.100 ng/mL (0.000-0.056) Height (Feet): 5 Height (Inches): 10.00 Weight (Pounds): 260 Objective vitals: noted ENT: dry mucus membranes Neck: limited range of motion Respiratory: decreased breath sounds Cardiovascular: normal peripheral pulses, rrr Gastrointestinal: normal bowel sounds, soft, tenderness - suprapubic Musculoskeletal: decreased range of motion Neurologic: normal inspection, alert, responsive Psychiatric: normal inspection Skin: normal inspection, normal color Cesar Singh MD Nov 12, 2019 05:47
[2019-11-12] MEDS: HydrALAZINE 50mg tab ORAL SCH ×3 (06:00→22:01)
[2019-11-12] MEDS: NovoLOG Insulin Flexpen SUBQ SCH ×4 (06:18→21:00)
--- NOTE | 2019-11-12 07:18 | NUR ---
HAND-OFF: Report given to BENOIT Marie. Patient stable. Endorsed abnormal vital signs during 12 midnight.
--- NOTE | 2019-11-12 07:35 | NUR ---
NURSE NOTES: Patient sleeping at this time. No s/sx of distress or pain. RR even and unlabored on 2L NC Side rails upx2, call light within reach, bed low and locked. Will continue to monitor.
[2019-11-12 08:56] LABS: BASOPHILS % (AUTO) 0.3 % (0.0-2.0); EOSINOPHILS % (AUTO) 0.1 % (0.0-3.0); HEMATOCRIT 25.1 % (42.0-52.0); HEMOGLOBIN 8.3 G/DL (14.2-18.0); LYMPHOCYTES % (AUTO) 16.8 % (20.0-45.0); MEAN CORPUSCULAR VOLUME 84 FL (80-99); MONOCYTES % (AUTO) 13.8 % (1.0-10.0); PLATELET COUNT 140 K/UL (150-450); RED BLOOD COUNT 2.98 M/UL (4.70-6.10); RED CELL DISTRIBUTION WIDTH 12.1 % (11.6-14.8); WHITE BLOOD COUNT 5.3 K/UL (4.8-10.8)
[2019-11-12] MEDS: Minoxidil 2.5mg tab ORAL SCH (09:00)
[2019-11-12] MEDS: Levemir Flexpen SUBQ SCH (09:00)
[2019-11-12 09:35] LABS: ALANINE AMINOTRANSFERASE 17 U/L (12-78); ALBUMIN 2.5 G/DL (3.4-5.0); ALBUMIN/GLOBULIN RATIO 0.7 (1.0-2.7); ALKALINE PHOSPHATASE 49 U/L (46-116); ANION GAP 9 mmol/L (5-15); ASPARTATE AMINO TRANSFERASE 23 U/L (15-37); BILIRUBIN,TOTAL 0.4 MG/DL (0.2-1.0); BLOOD UREA NITROGEN 26 mg/dL (7-18); CALCIUM 7.8 MG/DL (8.5-10.1); CARBON DIOXIDE 24 MMOL/L (21-32); CHLORIDE 106 MMOL/L (98-107); CREATININE 2.9 MG/DL (0.55-1.30); PHOSPHORUS 3.9 MG/DL (2.5-4.9); POTASSIUM 3.8 MMOL/L (3.5-5.1); SODIUM 139 MMOL/L (136-145)
[2019-11-12] MEDS: Aspirin EC 81mg tab ORAL SCH (09:45)
[2019-11-12] MEDS: Nateglinide 60mg tab ORAL SCH ×3 (09:45→17:53)
[2019-11-12] MEDS: Bethanechol 25mg Tab ORAL SCH ×3 (09:45→17:53)
[2019-11-12] MEDS: Tamsulosin 0.4mg cap ORAL SCH ×2 (09:45→17:52)
[2019-11-12] MEDS: Docusate 100mg cap ORAL SCH ×3 (09:46→17:52)
--- NOTE | 2019-11-12 10:28 | Pulmonology Progress Note ---
Assessment/Plan Assessment/Plan IMPRESSION: 1. Fever. 2. Positive COVID-19 pneumonia. 3. Multiple medical problems. 4. Normoxemia DISCUSSION: Continue current medications and care. Broad spectrum antibiotics. 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 Has positive COVID-19. Saturating well on RA Bill Westfall M.D. Subjective ROS Limited/Unobtainable: Yes Interval Events: None new HEENT: Repors: no symptoms Respiratory: Reports: no symptoms Cardiovascular: Reports: no symptoms Gastrointestinal/Abdominal: Reports: no symptoms Genitourinary: Reports: no symptoms Allergies: Coded Allergies: No Known Allergies (Unverified , 05/27/15) Objective Last 24 Hour Vital Signs Date Time Temp Pulse Resp B/P (MAP) Pulse Ox O2 Delivery O2 Flow Rate FiO2 11/12/19 08:21 Room Air 11/12/19 06:00 104/93 11/12/19 04:00 99.3 99 24 104/43 (63) 96 11/12/19 04:00 89 11/12/19 01:45 97.7 102 24 131/53 (79) 97 11/12/19 01:16 97.9 11/12/19 00:46 171/81 11/12/19 00:00 102.4 102 32 171/81 (111) 92 11/12/19 00:00 101 11/11/19 22:11 134/56 11/11/19 21:10 134/56 11/11/19 21:00 Room Air 11/11/19 20:00 99.7 89 26 134/56 (82) 92 11/11/19 20:00 91 11/11/19 17:28 83 155/61 11/11/19 16:00 98.6 83 19 155/61 (92) 96 11/11/19 16:00 90 11/11/19 14:09 151/74 11/11/19 12:00 79 11/11/19 12:00 96.7 78 20 151/74 (99) 98 Intake and Output 11/11/19 11/12/19 19:00 07:00 Intake Total 1037.5 ml Output Total 1200 ml Balance -162.5 ml Intake Oral 120 ml IV Total 917.5 ml Output Urine Total 1200 ml # Voids 3 2 General Appearance: no acute distress HEENT: mucous membranes moist Respiratory/Chest: chest wall non-tender, lungs clear Cardiovascular: normal peripheral pulses Abdomen: soft, non tender Extremities: no edema Neurologic/Psychiatric: alert, responsive Laboratory Tests 11/12/19 07:45: White Blood Count 5.3, Red Blood Count 2.98L, Hemoglobin 8.3L, Hematocrit 25.1L , Mean Corpuscular Volume 84, Mean Corpuscular Hemoglobin 27.9, Mean Corpuscular Hemoglobin Concent 33.2, Red Cell Distribution Width 12.1, Platelet Count 140L, Mean Platelet Volume 7.3, Neutrophils (%) (Auto) 69.0, Lymphocytes ( %) (Auto) 16.8L, Monocytes (%) (Auto) 13.8H, Eosinophils (%) (Auto) 0.1, Basophils (%) (Auto) 0.3, Sodium Level 139, Potassium Level 3.8, Chloride Level 106, Carbon Dioxide Level 24, Anion Gap 9, Blood Urea Nitrogen 26H, Creatinine 2.9H, Estimat Glomerular Filtration Rate 25.0, Glucose Level 189H, Uric Acid 5.0 , Calcium Level 7.8L, Phosphorus Level 3.9, Total Bilirubin 0.4, Aspartate Amino Transf (AST/SGOT) 23, Alanine Aminotransferase (ALT/SGPT) 17, Alkaline Phosphatase 49, C-Reactive Protein, Quantitative 6.3H, Total Protein 6.3L, Albumin 2.5L, Globulin 3.8, Albumin/Globulin Ratio 0.7L Current Medications Medications (Trade) Dose Ordered Sig/Mayank Route PRN Reason Start Time Stop Time Status Last Admin Dose Admin Acetaminophen (Tylenol) 500 mg Q4H PRN ORAL Mild Pain/Temp >100.5 11/08/19 21:45 12/08/19 21:44 11/12/19 00:46 Aspirin (Ecotrin) 81 mg DAILY ORAL 11/12/19 09:00 12/27/19 08:59 11/12/19 09:45 Atorvastatin Calcium (Lipitor) 20 mg BEDTIME ORAL 11/12/19 21:00 02/10/20 20:59 Bethanechol Chloride (Urecholine) 25 mg THREE TIMES A DAY ORAL 11/09/19 09:00 12/09/19 08:59 11/12/19 09:45 Ceftriaxone Sodium 1 gm/ Dextrose 55 ml @ 110 mls/hr Q24H IVPB 11/09/19 14:00 11/16/19 13:59 11/11/19 14:11 Clonidine HCl (Catapres Tab) 0.1 mg Q4H PRN ORAL For High Blood Pressure 11/11/19 15:12 02/09/20 15:11 11/12/19 00:46 Dextrose (Dextrose 50%) 25 ml Q30M PRN IV Hypoglycemia 11/08/19 21:45 02/06/20 21:44 Dextrose (Dextrose 50%) 50 ml Q30M PRN IV Hypoglycemia 11/08/19 21:45 02/06/20 21:44 Docusate Sodium (Colace) 100 mg THREE TIMES A DAY ORAL 11/09/19 18:00 12/09/19 17:59 11/12/19 09:46 Epoetin Mohit (Epoetin Mohit-EPBX(NON ESRD)) 6,000 unit SUN-SUN-SUN SUBQ 11/10/19 21:00 02/08/20 20:59 11/10/19 20:41 Finasteride (Proscar) 5 mg DAILY ORAL 11/09/19 09:00 02/07/20 08:59 11/12/19 09:45 Hydralazine HCl (Apresoline) 100 mg Q8HR ORAL 11/11/19 22:00 02/07/20 13:59 11/11/19 21:10 Insulin Aspart (NovoLOG) BEFORE MEALS AND HS SUBQ 11/08/19 23:00 02/07/20 22:59 11/12/19 06:18 Insulin Detemir (Levemir) 14 units Q24H SUBQ 11/10/19 09:00 02/07/20 08:59 11/11/19 09:34 Minoxidil (Loniten) 2.5 mg Q12HR ORAL 11/11/19 21:30 02/09/20 21:29 11/11/19 22:11 Mirtazapine (Remeron) 7.5 mg BEDTIME ORAL 11/08/19 23:00 02/06/20 22:59 11/11/19 21:11 Nateglinide (Starlix) 120 mg THREE TIMES A DAY ORAL 11/09/19 09:00 12/09/19 08:59 11/12/19 09:45 Nifedipine (Procardia XL) 30 mg BID ORAL 11/10/19 18:00 12/10/19 17:59 11/11/19 17:28 Pantoprazole (Protonix) 40 mg BID ORAL 11/09/19 09:00 12/09/19 08:59 11/12/19 09:45 Sodium Chloride 1,000 ml @ 75 mls/hr [id number] IV 11/09/19 15:00 12/09/19 14:59 11/12/19 09:48 Tamsulosin HCl (Flomax) 0.4 mg BID ORAL 11/09/19 18:00 12/09/19 20:59 11/12/19 09:45 Bill Westfall MD Nov 12, 2019 10:28
--- NOTE | 2019-11-12 10:47 | NUR ---
CASE MANAGEMENT:REVIEW 11/12/19 SI: POSITIVE COVID 19 PNEUMONIA E COLI UTI. ACUTE RENAL FAILURE 98.7 101 22 108/49 97% ON RA H/H-8.3/25.1 PLT-140 BUN+26 CR+2.9 IS: IV ROCEPHIN Q24HRS IVF@75/HR LIPITOR PO QHS ASA PO QD MINOXIDIL PO Q12 EPOETIN SQ MWF PROCARDIA XL PO BID LEVEMIR SQ Q24 FLOMAX PO BID URECHOLINE PO TID STARLIX PO TID PROSCAR PO QD PROTONIX PO BID REMERON PO QHS : TELEMETRY STATUS DCP: FROM [facility] : TELEMETRY STATUS DCP: FROM [facility]
--- NOTE | 2019-11-12 12:09 | Infectious Diseases Prog Note ---
Assessment/Plan Assessment/Plan IMPRESSION: E. coli UTI COVID19, mild symptoms diabetes mellitus, hypertension, anemia, Right eye glaucoma. Acute renal failure worsening RECOMMENDATION: Continue ceftriaxone. Start on Hydroxychloroquine CXR Repeat COVID19 test Subjective ROS Limited/Unobtainable: Yes Constitutional: Reports: fever, other - fever of 102.4 last night Allergies: Coded Allergies: No Known Allergies (Unverified , 05/27/15) Objective Vital Signs Last 24 Hour Vital Signs Date Time Temp Pulse Resp B/P (MAP) Pulse Ox O2 Delivery O2 Flow Rate FiO2 11/12/19 08:21 Room Air 11/12/19 08:00 82 11/12/19 08:00 98.7 101 22 108/49 (68) 97 11/12/19 06:00 104/93 11/12/19 04:00 99.3 99 24 104/43 (63) 96 11/12/19 04:00 89 11/12/19 01:45 97.7 102 24 131/53 (79) 97 11/12/19 01:16 97.9 11/12/19 00:46 171/81 11/12/19 00:00 102.4 102 32 171/81 (111) 92 11/12/19 00:00 101 11/11/19 22:11 134/56 11/11/19 21:10 134/56 11/11/19 21:00 Room Air 11/11/19 20:00 99.7 89 26 134/56 (82) 92 11/11/19 20:00 91 11/11/19 17:28 83 155/61 11/11/19 16:00 98.6 83 19 155/61 (92) 96 11/11/19 16:00 90 11/11/19 14:09 151/74 Height (Feet): 5 Height (Inches): 10.00 Weight (Pounds): 196 General Appearance: no acute distress HEENT: mucous membranes moist Respiratory/Chest: other - oxygen by nasal cannula Cardiovascular: tachycardia Abdomen: soft, non tender Extremities: no edema Neurologic/Psychiatric: other - sleeping Laboratory Tests Test 11/12/19 07:45 White Blood Count 5.3 K/UL (4.8-10.8) Red Blood Count 2.98 M/UL (4.70-6.10) L Hemoglobin 8.3 G/DL (14.2-18.0) L Hematocrit 25.1 % (42.0-52.0) L Mean Corpuscular Volume 84 FL (80-99) Mean Corpuscular Hemoglobin 27.9 PG (27.0-31.0) Mean Corpuscular Hemoglobin Concent 33.2 G/DL (32.0-36.0) Red Cell Distribution Width 12.1 % (11.6-14.8) Platelet Count 140 K/UL (150-450) L Mean Platelet Volume 7.3 FL (6.5-10.1) Neutrophils (%) (Auto) 69.0 % (45.0-75.0) Lymphocytes (%) (Auto) 16.8 % (20.0-45.0) L Monocytes (%) (Auto) 13.8 % (1.0-10.0) H Eosinophils (%) (Auto) 0.1 % (0.0-3.0) Basophils (%) (Auto) 0.3 % (0.0-2.0) Sodium Level 139 MMOL/L (136-145) Potassium Level 3.8 MMOL/L (3.5-5.1) Chloride Level 106 MMOL/L (98-107) Carbon Dioxide Level 24 MMOL/L (21-32) Anion Gap 9 mmol/L (5-15) Blood Urea Nitrogen 26 mg/dL (7-18) H Creatinine 2.9 MG/DL (0.55-1.30) H Estimat Glomerular Filtration Rate 25.0 mL/min (>60) Glucose Level 189 MG/DL (74-106) H Uric Acid 5.0 MG/DL (2.6-7.2) Calcium Level 7.8 MG/DL (8.5-10.1) L Phosphorus Level 3.9 MG/DL (2.5-4.9) Total Bilirubin 0.4 MG/DL (0.2-1.0) Aspartate Amino Transf (AST/SGOT) 23 U/L (15-37) Alanine Aminotransferase (ALT/SGPT) 17 U/L (12-78) Alkaline Phosphatase 49 U/L (46-116) C-Reactive Protein, Quantitative 6.3 mg/dL (0.00-0.90) H Total Protein 6.3 G/DL (6.4-8.2) L Albumin 2.5 G/DL (3.4-5.0) L Globulin 3.8 g/dL Albumin/Globulin Ratio 0.7 (1.0-2.7) L Current Medications Medications (Trade) Dose Ordered Sig/Mayank Route PRN Reason Start Time Stop Time Status Last Admin Dose Admin Acetaminophen (Tylenol) 500 mg Q4H PRN ORAL Mild Pain/Temp >100.5 11/08/19 21:45 12/08/19 21:44 11/12/19 00:46 Aspirin (Ecotrin) 81 mg DAILY ORAL 11/12/19 09:00 12/27/19 08:59 11/12/19 09:45 Atorvastatin Calcium (Lipitor) 20 mg BEDTIME ORAL 11/12/19 21:00 02/10/20 20:59 Bethanechol Chloride (Urecholine) 25 mg THREE TIMES A DAY ORAL 11/09/19 09:00 12/09/19 08:59 11/12/19 09:45 Ceftriaxone Sodium 1 gm/ Dextrose 55 ml @ 110 mls/hr Q24H IVPB 11/09/19 14:00 11/16/19 13:59 11/11/19 14:11 Clonidine HCl (Catapres Tab) 0.1 mg Q4H PRN ORAL For High Blood Pressure 11/11/19 15:12 02/09/20 15:11 11/12/19 00:46 Dextrose (Dextrose 50%) 25 ml Q30M PRN IV Hypoglycemia 11/08/19 21:45 02/06/20 21:44 Dextrose (Dextrose 50%) 50 ml Q30M PRN IV Hypoglycemia 11/08/19 21:45 02/06/20 21:44 Docusate Sodium (Colace) 100 mg THREE TIMES A DAY ORAL 11/09/19 18:00 12/09/19 17:59 11/12/19 09:46 Epoetin Mohit (Epoetin Mohit-EPBX(NON ESRD)) 6,000 unit SUN-SUN-SUN SUBQ 11/10/19 21:00 02/08/20 20:59 11/10/19 20:41 Finasteride (Proscar) 5 mg DAILY ORAL 11/09/19 09:00 02/07/20 08:59 11/12/19 09:45 Hydralazine HCl (Apresoline) 100 mg Q8HR ORAL 11/11/19 22:00 02/07/20 13:59 11/11/19 21:10 Insulin Aspart (NovoLOG) BEFORE MEALS AND HS SUBQ 11/08/19 23:00 02/07/20 22:59 11/12/19 06:18 Insulin Detemir (Levemir) 14 units Q24H SUBQ 11/10/19 09:00 02/07/20 08:59 11/12/19 09:00 Minoxidil (Loniten) 2.5 mg Q12HR ORAL 11/11/19 21:30 02/09/20 21:29 11/11/19 22:11 Mirtazapine (Remeron) 7.5 mg BEDTIME ORAL 11/08/19 23:00 02/06/20 22:59 11/11/19 21:11 Nateglinide (Starlix) 120 mg THREE TIMES A DAY ORAL 11/09/19 09:00 12/09/19 08:59 11/12/19 09:45 Nifedipine (Procardia XL) 30 mg BID ORAL 11/10/19 18:00 12/10/19 17:59 11/11/19 17:28 Pantoprazole (Protonix) 40 mg BID ORAL 11/09/19 09:00 12/09/19 08:59 11/12/19 09:45 Sodium Chloride 1,000 ml @ 75 mls/hr [id number] IV 11/09/19 15:00 12/09/19 14:59 11/12/19 09:48 Tamsulosin HCl (Flomax) 0.4 mg BID ORAL 11/09/19 18:00 12/09/19 20:59 11/12/19 09:45 Viktor Miranda MD Nov 12, 2019 12:09
[2019-11-12] MEDS ORDERED: Hydroxychloroquine Fact Sheet MISC ONE (12:15)
[2019-11-12] MEDS: Hydroxychloroquine 400mg tab ORAL SCH ×2 (12:30→21:00)
--- NOTE | 2019-11-12 12:30 | NUR ---
DISCHARGE PLANNING PATIENT IS COVID 19 POSITIVE HE IS FROM [facility]. CALLED AND SPOKE WITH [employer]ICE OFFICER, [place] MALAVE PER MR MALAVE PATIENT CANNOT RETURN TO [facility] WITH COVID 19 PATIENT WILL LIKELY NEED SNF PLACEMENT UPON DISCHARGE DR DARDEN HAS BEEN UPDATE...NO REFERRALS GIVEN AT THIS TIME NOT READY FOR DISCHARGE TODAY D/T... T~102.4 CR+2.9 HGB-8.3
[2019-11-12] MEDS: cefTRIAXone 1 GM in D5W 55 ML IVPB SCH (13:38)
--- NOTE | 2019-11-12 13:38 | Nephrology Progress Note ---
Assessment/Plan Problem List: (1) Acute on chronic renal failure Assessment: Serum creatinine rising (2) BPH (benign prostatic hyperplasia) (3) Anemia (4) Sepsis (5) COVID-19 virus detected Assessment Mr. Melton is admitted with pneumonia and UTI and exposure to COVID-19 virus, and the test is positive From renal standpoint of view: Acute on chronic renal failure: Serum creatinine has risen from baseline of 1.6- 2.5 Diabetic nephropathy BPH Anemia Hypertension Plan Positive for COVID-19 Adjust blood pressure medication as the blood pressure has been low Slow hydration and 1 bolus of albumin Kidney ultrasound Monitor renal parameters Avoid nephrotoxic's Flomax twice daily Antibiotics per ID Will review the 2D echocardiogram and ultrasound which was done previously Per orders Subjective ROS Limited/Unobtainable: No Constitutional: Reports: malaise, weakness Objective Objective Last 24 Hour Vital Signs Date Time Temp Pulse Resp B/P (MAP) Pulse Ox O2 Delivery O2 Flow Rate FiO2 11/12/19 08:21 Room Air 11/12/19 08:00 82 11/12/19 08:00 98.7 101 22 108/49 (68) 97 11/12/19 06:00 104/93 11/12/19 04:00 99.3 99 24 104/43 (63) 96 11/12/19 04:00 89 11/12/19 01:45 97.7 102 24 131/53 (79) 97 11/12/19 01:16 97.9 11/12/19 00:46 171/81 11/12/19 00:00 102.4 102 32 171/81 (111) 92 11/12/19 00:00 101 11/11/19 22:11 134/56 11/11/19 21:10 134/56 11/11/19 21:00 Room Air 11/11/19 20:00 99.7 89 26 134/56 (82) 92 11/11/19 20:00 91 11/11/19 17:28 83 155/61 11/11/19 16:00 98.6 83 19 155/61 (92) 96 11/11/19 16:00 90 11/11/19 14:09 151/74 Intake and Output 11/11/19 11/12/19 19:00 07:00 Intake Total 1037.5 ml Output Total 1200 ml Balance -162.5 ml Intake Oral 120 ml IV Total 917.5 ml Output Urine Total 1200 ml # Voids 3 2 Laboratory Tests 11/12/19 07:45: White Blood Count 5.3, Red Blood Count 2.98L, Hemoglobin 8.3L, Hematocrit 25.1L , Mean Corpuscular Volume 84, Mean Corpuscular Hemoglobin 27.9, Mean Corpuscular Hemoglobin Concent 33.2, Red Cell Distribution Width 12.1, Platelet Count 140L, Mean Platelet Volume 7.3, Neutrophils (%) (Auto) 69.0, Lymphocytes ( %) (Auto) 16.8L, Monocytes (%) (Auto) 13.8H, Eosinophils (%) (Auto) 0.1, Basophils (%) (Auto) 0.3, Sodium Level 139, Potassium Level 3.8, Chloride Level 106, Carbon Dioxide Level 24, Anion Gap 9, Blood Urea Nitrogen 26H, Creatinine 2.9H, Estimat Glomerular Filtration Rate 25.0, Glucose Level 189H, Uric Acid 5.0 , Calcium Level 7.8L, Phosphorus Level 3.9, Total Bilirubin 0.4, Aspartate Amino Transf (AST/SGOT) 23, Alanine Aminotransferase (ALT/SGPT) 17, Alkaline Phosphatase 49, C-Reactive Protein, Quantitative 6.3H, Total Protein 6.3L, Albumin 2.5L, Globulin 3.8, Albumin/Globulin Ratio 0.7L Height (Feet): 5 Height (Inches): 10.00 Weight (Pounds): 196 General Appearance: no apparent distress, lethargic Cardiovascular: tachycardia Respiratory/Chest: decreased breath sounds Abdomen: distended Objective No change Rodrigue Mackenzie MD Nov 12, 2019 13:38
[2019-11-12] MEDS ORDERED: HydrALAZINE 25mg tab ORAL SCH (14:00)
--- NOTE | 2019-11-12 16:00 | NUR ---
NURSE NOTES: Spoke with Dr. Mackenzie that there is a significant drop in BP. No BP meds given since midnight.
--- NOTE | 2019-11-12 17:10 | Diagnostic Imaging Report ---
Indication: Abnormal renal function Technique: Multiplanar grayscale imaging of the bilateral kidneys and bladder Comparison: 09/05/2018 Findings: Technically limited and suboptimal study due to patient body habitus. Cysts are noted in the bilateral kidneys, the larger in the right kidney measures approximately 3.5 cm. Renal echogenicity appears within normal limits. No appreciable hydronephrosis. Bladder is decompressed, precluding reliable evaluation. IMPRESSION: Limited, suboptimal exam. * No hydronephrosis or sonographically appreciable renal stone. * Renal echogenicity appears within normal limits. * Bilateral renal cysts. * Bladder is decompressed, precluding reliable evaluation.
--- NOTE | 2019-11-12 19:15 | NUR ---
NURSE NOTES: Report received from BENOIT Marie. Patient asleep, but arousable. Patient noted to be grinding his teeth. Patient currently on venturi mask for shortness of breath noted during day shift, will call Dr. Westfall for an order. IV intact and flushed; no erythema, bleeding, or infiltration. Bed on lowest position, brakes engaged. Call light placed within reach. Was endorsed that patient's son refused Hydroxychloroquine for his father and would like to hold off on it. Call light placed within reach. Will continue to monitor.
--- NOTE | 2019-11-12 20:04 | NUR ---
HAND-OFF: Report given to Cortes LABOY. Patient stable. Plan of care endorsed. Pt. now on veturi mask due to SOB. Endorsed that there is no order.
--- NOTE | 2019-11-12 20:05 | NUR ---
NURSE NOTES: Son refusing plaqunil treatment. Will notify Dr. Mary Miranda
--- NOTE | 2019-11-12 21:02 | NUR ---
NURSE NOTES: Called and left a message for Dr. Westfall for an order for the venturi mask. Awaiting call back
--- NOTE | 2019-11-12 21:27 | General Progress Note ---
Assessment/Plan Problem List: (1) Sepsis ICD Codes: A41.9 - Sepsis, unspecified organism SNOMED: 30125091 (2) Diabetes ICD Codes: E11.9 - Type 2 diabetes mellitus without complications SNOMED: 74534678 (3) BPH (benign prostatic hyperplasia) ICD Codes: N40.0 - Benign prostatic hyperplasia without lower urinary tract symptoms SNOMED: 471433223 (4) Anemia ICD Codes: D64.9 - Anemia, unspecified SNOMED: 399523224 (5) Acute on chronic renal failure ICD Codes: N17.9 - Acute kidney failure, unspecified; N18.9 - Chronic kidney disease, unspecified SNOMED: 321562252 (6) Fever ICD Codes: R50.9 - Fever, unspecified SNOMED: 630266891 Qualifiers: Qualified Codes: R50.9 - Fever, unspecified (7) Suspected COVID-19 virus infection ICD Codes: Z20.828 - Contact with and (suspected) exposure to other viral communicable diseases SNOMED: 642957838 (8) UTI (urinary tract infection) ICD Codes: N39.0 - Urinary tract infection, site not specified SNOMED: 62785495 Qualifiers: Qualified Codes: N39.0 - Urinary tract infection, site not specified (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 SNOMED: 20460595, 992014349 (10) Hypertension ICD Codes: I10 - Essential (primary) hypertension SNOMED: 72638837 Status: progressing Assessment/Plan: lyte abnormality uti pna had fever early this am s/o tachypnic on oxygen azotemia dm cri is covid positive pna anemia Subjective ROS Limited/Unobtainable: Yes Allergies: Coded Allergies: No Known Allergies (Unverified , 05/27/15) Objective Last 24 Hour Vital Signs Date Time Temp Pulse Resp B/P (MAP) Pulse Ox O2 Delivery O2 Flow Rate FiO2 11/12/19 17:00 94 119/42 (67) 11/12/19 17:00 95 136/61 (86) 11/12/19 16:00 91 11/12/19 16:00 98.8 91 32 115/50 (71) 99 11/12/19 16:00 92 92/45 (61) 11/12/19 13:39 111/52 11/12/19 12:00 99.0 103 21 111/52 (71) 98 11/12/19 12:00 89 11/12/19 08:21 Room Air 11/12/19 08:00 82 11/12/19 08:00 98.7 101 22 108/49 (68) 97 11/12/19 06:00 104/93 11/12/19 04:00 99.3 99 24 104/43 (63) 96 11/12/19 04:00 89 11/12/19 01:45 97.7 102 24 131/53 (79) 97 11/12/19 01:16 97.9 11/12/19 00:46 171/81 11/12/19 00:00 102.4 102 32 171/81 (111) 92 11/12/19 00:00 101 11/11/19 22:11 134/56 Intake and Output 11/11/19 11/12/19 19:00 07:00 Intake Total 1037.5 ml Output Total 1200 ml Balance -162.5 ml Intake Oral 120 ml IV Total 917.5 ml Output Urine Total 1200 ml # Voids 3 2 Laboratory Tests 11/12/19 07:45: White Blood Count 5.3, Red Blood Count 2.98L, Hemoglobin 8.3L, Hematocrit 25.1L , Mean Corpuscular Volume 84, Mean Corpuscular Hemoglobin 27.9, Mean Corpuscular Hemoglobin Concent 33.2, Red Cell Distribution Width 12.1, Platelet Count 140L, Mean Platelet Volume 7.3, Neutrophils (%) (Auto) 69.0, Lymphocytes ( %) (Auto) 16.8L, Monocytes (%) (Auto) 13.8H, Eosinophils (%) (Auto) 0.1, Basophils (%) (Auto) 0.3, Sodium Level 139, Potassium Level 3.8, Chloride Level 106, Carbon Dioxide Level 24, Anion Gap 9, Blood Urea Nitrogen 26H, Creatinine 2.9H, Estimat Glomerular Filtration Rate 25.0, Glucose Level 189H, Uric Acid 5.0 , Calcium Level 7.8L, Phosphorus Level 3.9, Total Bilirubin 0.4, Aspartate Amino Transf (AST/SGOT) 23, Alanine Aminotransferase (ALT/SGPT) 17, Alkaline Phosphatase 49, C-Reactive Protein, Quantitative 6.3H, Total Protein 6.3L, Albumin 2.5L, Globulin 3.8, Albumin/Globulin Ratio 0.7L Height (Feet): 5 Height (Inches): 10.00 Weight (Pounds): 196 Respiratory/Chest: lungs clear Abdomen: soft Aliyah Miller MD Nov 12, 2019 21:27
[2019-11-12] MEDS: Atorvastatin 20mg tab ORAL SCH (22:01)
[2019-11-12] MEDS: Epoetin Alfa-EPBX (NON ESRD) 3000 units/ml vial SUBQ SCH (22:02)
--- NOTE | 2019-11-12 22:42 | Cardiology Progress Note ---
Assessment/Plan Assessment/Plan 1. Elevated troponin I level in this patient likely acute HFpEF in view of CKD, HTN and age. Continue ASA and statins. 2. Severe with HERMINIO at 0.8 cm2. Avoid potent diuretics. 3. DM, continue ASA and statins. 4. Hypertension secondary renal parenchymal disease, stage II, continue hydralazine, nifedipine, start minoxidil, clonidine as needed. 5. CKD. 6. COVID-19 pneumonia on Ceftriaxone, ID follow-up. Subjective Subjective Sinus rhythm at rate of 94. Objective Last 24 Hour Vital Signs Date Time Temp Pulse Resp B/P (MAP) Pulse Ox O2 Delivery O2 Flow Rate FiO2 11/12/19 22:01 139/49 11/12/19 17:00 94 119/42 (67) 11/12/19 17:00 95 136/61 (86) 11/12/19 16:00 91 11/12/19 16:00 98.8 91 32 115/50 (71) 99 11/12/19 16:00 92 92/45 (61) 11/12/19 13:39 111/52 11/12/19 12:00 99.0 103 21 111/52 (71) 98 11/12/19 12:00 89 11/12/19 08:21 Room Air 11/12/19 08:00 82 11/12/19 08:00 98.7 101 22 108/49 (68) 97 11/12/19 06:00 104/93 11/12/19 04:00 99.3 99 24 104/43 (63) 96 11/12/19 04:00 89 11/12/19 01:45 97.7 102 24 131/53 (79) 97 11/12/19 01:16 97.9 11/12/19 00:46 171/81 11/12/19 00:00 102.4 102 32 171/81 (111) 92 11/12/19 00:00 101 Intake and Output 11/11/19 11/12/19 19:00 07:00 Intake Total 1037.5 ml Output Total 1200 ml Balance -162.5 ml Intake Oral 120 ml IV Total 917.5 ml Output Urine Total 1200 ml # Voids 3 2 2D Echo: EF 55%, HERMINIO 0.8cm2, RVSP 48, mod MR, Mild AR/OK, Grade I LVDD Laboratory Tests Test 11/12/19 07:45 White Blood Count 5.3 K/UL (4.8-10.8) Red Blood Count 2.98 M/UL (4.70-6.10) L Hemoglobin 8.3 G/DL (14.2-18.0) L Hematocrit 25.1 % (42.0-52.0) L Mean Corpuscular Volume 84 FL (80-99) Mean Corpuscular Hemoglobin 27.9 PG (27.0-31.0) Mean Corpuscular Hemoglobin Concent 33.2 G/DL (32.0-36.0) Red Cell Distribution Width 12.1 % (11.6-14.8) Platelet Count 140 K/UL (150-450) L Mean Platelet Volume 7.3 FL (6.5-10.1) Neutrophils (%) (Auto) 69.0 % (45.0-75.0) Lymphocytes (%) (Auto) 16.8 % (20.0-45.0) L Monocytes (%) (Auto) 13.8 % (1.0-10.0) H Eosinophils (%) (Auto) 0.1 % (0.0-3.0) Basophils (%) (Auto) 0.3 % (0.0-2.0) Sodium Level 139 MMOL/L (136-145) Potassium Level 3.8 MMOL/L (3.5-5.1) Chloride Level 106 MMOL/L (98-107) Carbon Dioxide Level 24 MMOL/L (21-32) Anion Gap 9 mmol/L (5-15) Blood Urea Nitrogen 26 mg/dL (7-18) H Creatinine 2.9 MG/DL (0.55-1.30) H Estimat Glomerular Filtration Rate 25.0 mL/min (>60) Glucose Level 189 MG/DL (74-106) H Uric Acid 5.0 MG/DL (2.6-7.2) Calcium Level 7.8 MG/DL (8.5-10.1) L Phosphorus Level 3.9 MG/DL (2.5-4.9) Total Bilirubin 0.4 MG/DL (0.2-1.0) Aspartate Amino Transf (AST/SGOT) 23 U/L (15-37) Alanine Aminotransferase (ALT/SGPT) 17 U/L (12-78) Alkaline Phosphatase 49 U/L (46-116) C-Reactive Protein, Quantitative 6.3 mg/dL (0.00-0.90) H Total Protein 6.3 G/DL (6.4-8.2) L Albumin 2.5 G/DL (3.4-5.0) L Globulin 3.8 g/dL Albumin/Globulin Ratio 0.7 (1.0-2.7) L Objective HEENT: Atraumatic and normocephalic. Anicteric. Pupils are equal, round, and reactive to light and accommodation. Extraocular muscles intact. NECK: JVP less than 5 cm. No carotid bruit. Carotid upstrokes 2+ bilaterally. CARDIOVASCULAR: Normal S1, S2. Regular rate and rhythm. 2/6 ESM at LSB, gallops, or rubs. PMI is at fourth intercostal space at the midclavicular line. LUNGS: Bibasilar crackles with diminished both lungs. ABDOMEN: Soft, nontender, nondistended. No hepatosplenomegaly. Positive bowel sounds. EXTREMITIES: No evidence of edema, clubbing, or cyanosis. Dick Payan MD Nov 12, 2019 22:42
[2019-11-13] VITALS (7 sets, daily range): BP systolic 125–166; BP diastolic 42–75
[2019-11-13] MEDS: Acetaminophen 500mg (ES) tab ORAL PRN (01:02)
--- NOTE | 2019-11-13 02:20 | NUR ---
NURSE NOTES: Reported to Dr. Mary Miranda patient's febrile episode. Tmax: 100.7 axillary. Gave Tylenol for mild fever. Re-assessment temp: 99.8. Tepid sponge bath and ice packs placed to decrease temperature.
--- NOTE | 2019-11-13 03:16 | NUR ---
NURSE NOTES: Dr. Miller and Dr. Mary Miranda aware of patient's febrile episode. No new orders.
[2019-11-13] MEDS: HydrALAZINE 50mg tab ORAL SCH ×4 (06:00→22:45)
[2019-11-13] MEDS: NovoLOG Insulin Flexpen SUBQ SCH ×4 (06:30→20:56)
--- NOTE | 2019-11-13 07:37 | NUR ---
HAND-OFF: Report given to BENOIT Marie. Patient stable. Plan of care endorsed.
[2019-11-13 07:47] LABS: HEMATOCRIT 23.1 % (42.0-52.0); HEMOGLOBIN 7.7 G/DL (14.2-18.0); MEAN CORPUSCULAR VOLUME 85 FL (80-99); PLATELET COUNT 139 K/UL (150-450); RED BLOOD COUNT 2.73 M/UL (4.70-6.10); WHITE BLOOD COUNT 5.5 K/UL (4.8-10.8)
--- NOTE | 2019-11-13 08:00 | NUR ---
NURSE NOTES: Patient sleeping at this time. No s/sx of distress or pain. RR even and unlabored on Venturi 33% 4L Side rails upx2, call light within reach, bed low and locked. Will continue to monitor.
[2019-11-13 08:25] LABS: ALANINE AMINOTRANSFERASE 16 U/L (12-78); ALBUMIN 2.8 G/DL (3.4-5.0); ALBUMIN/GLOBULIN RATIO 0.7 (1.0-2.7); ALKALINE PHOSPHATASE 43 U/L (46-116); ANION GAP 12 mmol/L (5-15); ASPARTATE AMINO TRANSFERASE 29 U/L (15-37); BILIRUBIN,TOTAL 0.4 MG/DL (0.2-1.0); BLOOD UREA NITROGEN 36 mg/dL (7-18); CALCIUM 7.9 MG/DL (8.5-10.1); CARBON DIOXIDE 22 MMOL/L (21-32); CHLORIDE 105 MMOL/L (98-107); CREATININE 3.3 MG/DL (0.55-1.30); PHOSPHORUS 4.2 MG/DL (2.5-4.9); POTASSIUM 3.8 MMOL/L (3.5-5.1); SODIUM 139 MMOL/L (136-145)
[2019-11-13] MEDS: Levemir Flexpen SUBQ SCH (09:00)
[2019-11-13] MEDS: Docusate 100mg cap ORAL SCH ×3 (09:45→17:28)
[2019-11-13] MEDS: Tamsulosin 0.4mg cap ORAL SCH ×2 (09:46→17:27)
[2019-11-13] MEDS: Nateglinide 60mg tab ORAL SCH (09:46)
[2019-11-13] MEDS: Bethanechol 25mg Tab ORAL SCH ×3 (09:46→17:27)
[2019-11-13] MEDS: Aspirin EC 81mg tab ORAL SCH (09:46)
--- NOTE | 2019-11-13 10:49 | Diagnostic Imaging Report ---
Indication: Shortness of breath Technique: One view of the chest Comparison: 11/08/2019 Findings: There are inspiration currently. Mild interstitial congestion and central bronchial wall thickening persists. There are questionably faint hazy peripheral opacities, new or increased. There is right hilar prominence, probably more striking in the differential rotation on the current study. The heart remains borderline enlarged. Impression: Persistent mild interstitial congestion versus infiltrates. Question new or increased peripheral faint hazy infiltrates. Borderline cardiomegaly Right hilar fullness. Recommend follow-up radiographs, with consideration for chest CT should this persist
--- NOTE | 2019-11-13 11:26 | Infectious Diseases Prog Note ---
Assessment/Plan Assessment/Plan IMPRESSION: E. coli UTI COVID19 pneumonia worsening diabetes mellitus, hypertension, anemia, Right eye glaucoma. Acute renal failure worsening RECOMMENDATION: Continue ceftriaxone. Family agree with Hydroxychloroquine if symptoms are worse Will f/u COVID19 test Subjective ROS Limited/Unobtainable: Yes Constitutional: Reports: fever, other - Yr=311.7 Allergies: Coded Allergies: No Known Allergies (Unverified , 05/27/15) Objective Vital Signs Last 24 Hour Vital Signs Date Time Temp Pulse Resp B/P (MAP) Pulse Ox O2 Delivery O2 Flow Rate FiO2 11/13/19 09:46 87 131/55 11/13/19 09:00 Venturi Mask 4.0 11/13/19 08:00 99.9 87 20 131/55 (80) 98 11/13/19 04:00 100.1 91 18 125/42 (69) 94 11/13/19 04:00 89 11/13/19 01:32 99.8 11/13/19 01:23 99.8 11/13/19 00:00 102 11/13/19 00:00 100.7 103 18 127/59 (81) 95 11/12/19 22:01 139/49 11/12/19 21:00 Room Air 11/12/19 20:00 99.9 97 19 139/49 (79) 97 11/12/19 20:00 97 11/12/19 17:00 94 119/42 (67) 11/12/19 17:00 95 136/61 (86) 11/12/19 16:00 91 11/12/19 16:00 98.8 91 32 115/50 (71) 99 11/12/19 16:00 92 92/45 (61) 11/12/19 13:39 111/52 11/12/19 12:00 99.0 103 21 111/52 (71) 98 11/12/19 12:00 89 Height (Feet): 5 Height (Inches): 10.00 Weight (Pounds): 196 HEENT: mucous membranes moist Respiratory/Chest: other - on Cardiovascular: normal rate Abdomen: soft, non tender Laboratory Tests Test 11/13/19 06:30 11/13/19 07:08 Urine Eosinophils None seen (NONE SEEN) White Blood Count 5.5 K/UL (4.8-10.8) Red Blood Count 2.73 M/UL (4.70-6.10) L Hemoglobin 7.7 G/DL (14.2-18.0) L Hematocrit 23.1 % (42.0-52.0) L Mean Corpuscular Volume 85 FL (80-99) Mean Corpuscular Hemoglobin 28.2 PG (27.0-31.0) Mean Corpuscular Hemoglobin Concent 33.4 G/DL (32.0-36.0) Red Cell Distribution Width 12.0 % (11.6-14.8) Platelet Count 139 K/UL (150-450) L Mean Platelet Volume 7.4 FL (6.5-10.1) Neutrophils (%) (Auto) % (45.0-75.0) Lymphocytes (%) (Auto) % (20.0-45.0) Monocytes (%) (Auto) % (1.0-10.0) Eosinophils (%) (Auto) % (0.0-3.0) Basophils (%) (Auto) % (0.0-2.0) Differential Total Cells Counted 100 Neutrophils % (Manual) 73 % (45-75) Lymphocytes % (Manual) 12 % (20-45) L Monocytes % (Manual) 15 % (1-10) H Eosinophils % (Manual) 0 % (0-3) Basophils % (Manual) 0 % (0-2) Band Neutrophils 0 % (0-8) Platelet Estimate Decreased L Platelet Morphology Normal Hypochromasia 3+ Anisocytosis 1+ Spherocytes 1+ Sodium Level 139 MMOL/L (136-145) Potassium Level 3.8 MMOL/L (3.5-5.1) Chloride Level 105 MMOL/L (98-107) Carbon Dioxide Level 22 MMOL/L (21-32) Anion Gap 12 mmol/L (5-15) Blood Urea Nitrogen 36 mg/dL (7-18) H Creatinine 3.3 MG/DL (0.55-1.30) H Estimat Glomerular Filtration Rate 21.5 mL/min (>60) Glucose Level 141 MG/DL (74-106) H Calcium Level 7.9 MG/DL (8.5-10.1) L Phosphorus Level 4.2 MG/DL (2.5-4.9) Magnesium Level 1.8 MG/DL (1.8-2.4) Total Bilirubin 0.4 MG/DL (0.2-1.0) Aspartate Amino Transf (AST/SGOT) 29 U/L (15-37) Alanine Aminotransferase (ALT/SGPT) 16 U/L (12-78) Alkaline Phosphatase 43 U/L (46-116) L C-Reactive Protein, Quantitative 12.9 mg/dL (0.00-0.90) H Pro-B-Type Natriuretic Peptide 1653 pg/mL (0-125) H Total Protein 6.6 G/DL (6.4-8.2) Albumin 2.8 G/DL (3.4-5.0) L Globulin 3.8 g/dL Albumin/Globulin Ratio 0.7 (1.0-2.7) L Current Medications Medications (Trade) Dose Ordered Sig/Mayank Route PRN Reason Start Time Stop Time Status Last Admin Dose Admin Acetaminophen (Tylenol) 500 mg Q4H PRN ORAL Mild Pain/Temp >100.5 11/08/19 21:45 12/08/19 21:44 11/13/19 01:02 Aspirin (Ecotrin) 81 mg DAILY ORAL 11/12/19 09:00 12/27/19 08:59 11/13/19 09:46 Atorvastatin Calcium (Lipitor) 20 mg BEDTIME ORAL 11/12/19 21:00 02/10/20 20:59 11/12/19 22:01 Bethanechol Chloride (Urecholine) 25 mg THREE TIMES A DAY ORAL 11/09/19 09:00 12/09/19 08:59 11/13/19 09:46 Ceftriaxone Sodium 1 gm/ Dextrose 55 ml @ 110 mls/hr Q24H IVPB 11/09/19 14:00 11/16/19 13:59 11/12/19 13:38 Clonidine HCl (Catapres Tab) 0.1 mg Q4H PRN ORAL For High Blood Pressure 11/11/19 15:12 02/09/20 15:11 11/12/19 00:46 Dextrose (Dextrose 50%) 25 ml Q30M PRN IV Hypoglycemia 11/08/19 21:45 02/06/20 21:44 Dextrose (Dextrose 50%) 50 ml Q30M PRN IV Hypoglycemia 11/08/19 21:45 02/06/20 21:44 Docusate Sodium (Colace) 100 mg THREE TIMES A DAY ORAL 11/09/19 18:00 12/09/19 17:59 11/13/19 09:45 Epoetin Mohit (Epoetin Mohit-EPBX(NON ESRD)) 6,000 unit SUN-SUN-SUN SUBQ 11/10/19 21:00 02/08/20 20:59 11/12/19 22:02 Finasteride (Proscar) 5 mg DAILY ORAL 11/09/19 09:00 02/07/20 08:59 11/13/19 09:46 Hydralazine HCl (Apresoline) 50 mg Q8HR ORAL 11/12/19 14:00 02/07/20 13:59 11/12/19 22:01 Hydroxychloroquine Sulfate (Plaquenil) 200 mg Q12HR ORAL 11/13/19 21:00 11/17/19 09:01 Insulin Aspart (NovoLOG) BEFORE MEALS AND HS SUBQ 11/08/19 23:00 02/07/20 22:59 11/12/19 06:18 Insulin Detemir (Levemir) 14 units Q24H SUBQ 11/10/19 09:00 02/07/20 08:59 11/12/19 09:00 Mirtazapine (Remeron) 7.5 mg BEDTIME ORAL 11/08/19 23:00 02/06/20 22:59 11/12/19 22:01 Nateglinide (Starlix) 120 mg THREE TIMES A DAY ORAL 11/09/19 09:00 12/09/19 08:59 11/13/19 09:46 Nifedipine (Procardia XL) 30 mg DAILY ORAL 11/13/19 09:00 12/10/19 17:59 11/13/19 09:46 Pantoprazole (Protonix) 40 mg BID ORAL 11/09/19 09:00 12/09/19 08:59 11/13/19 09:46 Sodium Chloride 1,000 ml @ 75 mls/hr [id number] IV 11/09/19 15:00 12/09/19 14:59 11/12/19 22:03 Tamsulosin HCl (Flomax) 0.4 mg BID ORAL 11/09/19 18:00 12/09/19 20:59 11/13/19 09:46 Viktor Miranda MD Nov 13, 2019 11:26
--- NOTE | 2019-11-13 11:29 | Nephrology Progress Note ---
Assessment/Plan Problem List: (1) Acute on chronic renal failure Assessment: Serum creatinine rising (2) BPH (benign prostatic hyperplasia) (3) Anemia (4) Sepsis (5) COVID-19 virus detected Assessment Mr. Melton is admitted with pneumonia and UTI and exposure to COVID-19 virus, and the test is positive From renal standpoint of view: Acute on chronic renal failure: Serum creatinine has risen from baseline of 1.6- 2.5 Diabetic nephropathy BPH Anemia Hypertension Plan Positive for COVID-19 Discussed with BENOIT Marie Serum creatinine pito Kidney ultrasound results noted adjust blood pressure medication as the blood pressure has been low Slow hydration and 1 bolus of albumin Kidney ultrasound results noted Monitor renal parameters Avoid nephrotoxic's Flomax twice daily Antibiotics per ID Will review the 2D echocardiogram and ultrasound which was done previously Per orders Subjective ROS Limited/Unobtainable: No Constitutional: Reports: malaise, weakness Objective Objective Last 24 Hour Vital Signs Date Time Temp Pulse Resp B/P (MAP) Pulse Ox O2 Delivery O2 Flow Rate FiO2 11/13/19 09:46 87 131/55 11/13/19 09:00 Venturi Mask 4.0 11/13/19 08:00 99.9 87 20 131/55 (80) 98 11/13/19 04:00 100.1 91 18 125/42 (69) 94 11/13/19 04:00 89 11/13/19 01:32 99.8 11/13/19 01:23 99.8 11/13/19 00:00 102 11/13/19 00:00 100.7 103 18 127/59 (81) 95 11/12/19 22:01 139/49 11/12/19 21:00 Room Air 11/12/19 20:00 99.9 97 19 139/49 (79) 97 11/12/19 20:00 97 11/12/19 17:00 94 119/42 (67) 11/12/19 17:00 95 136/61 (86) 11/12/19 16:00 91 11/12/19 16:00 98.8 91 32 115/50 (71) 99 11/12/19 16:00 92 92/45 (61) 11/12/19 13:39 111/52 11/12/19 12:00 99.0 103 21 111/52 (71) 98 11/12/19 12:00 89 Intake and Output 11/12/19 11/13/19 19:00 07:00 Intake Total 800 ml 210 ml Balance 800 ml 210 ml Intake Oral 800 ml 210 ml # Voids 2 Current Medications Medications (Trade) Dose Ordered Sig/Mayank Route PRN Reason Start Time Stop Time Status Last Admin Dose Admin Acetaminophen (Tylenol) 500 mg Q4H PRN ORAL Mild Pain/Temp >100.5 11/08/19 21:45 12/08/19 21:44 11/13/19 01:02 Aspirin (Ecotrin) 81 mg DAILY ORAL 11/12/19 09:00 12/27/19 08:59 11/13/19 09:46 Atorvastatin Calcium (Lipitor) 20 mg BEDTIME ORAL 11/12/19 21:00 02/10/20 20:59 11/12/19 22:01 Bethanechol Chloride (Urecholine) 25 mg THREE TIMES A DAY ORAL 11/09/19 09:00 12/09/19 08:59 11/13/19 09:46 Ceftriaxone Sodium 1 gm/ Dextrose 55 ml @ 110 mls/hr Q24H IVPB 11/09/19 14:00 11/16/19 13:59 11/12/19 13:38 Clonidine HCl (Catapres Tab) 0.1 mg Q4H PRN ORAL For High Blood Pressure 11/11/19 15:12 02/09/20 15:11 11/12/19 00:46 Dextrose (Dextrose 50%) 25 ml Q30M PRN IV Hypoglycemia 11/08/19 21:45 02/06/20 21:44 Dextrose (Dextrose 50%) 50 ml Q30M PRN IV Hypoglycemia 11/08/19 21:45 02/06/20 21:44 Docusate Sodium (Colace) 100 mg THREE TIMES A DAY ORAL 11/09/19 18:00 12/09/19 17:59 11/13/19 09:45 Epoetin Mohit (Epoetin Mohit-EPBX(NON ESRD)) 6,000 unit SUN-SUN-SUN SUBQ 11/10/19 21:00 02/08/20 20:59 11/12/19 22:02 Finasteride (Proscar) 5 mg DAILY ORAL 11/09/19 09:00 02/07/20 08:59 11/13/19 09:46 Hydralazine HCl (Apresoline) 50 mg Q8HR ORAL 11/12/19 14:00 02/07/20 13:59 11/12/19 22:01 Hydroxychloroquine Sulfate (Plaquenil) 200 mg Q12HR ORAL 11/13/19 21:00 11/17/19 09:01 Insulin Aspart (NovoLOG) BEFORE MEALS AND HS SUBQ 11/08/19 23:00 02/07/20 22:59 11/12/19 06:18 Insulin Detemir (Levemir) 14 units Q24H SUBQ 11/10/19 09:00 02/07/20 08:59 11/12/19 09:00 Mirtazapine (Remeron) 7.5 mg BEDTIME ORAL 11/08/19 23:00 02/06/20 22:59 11/12/19 22:01 Nateglinide (Starlix) 120 mg THREE TIMES A DAY ORAL 11/13/19 13:00 12/09/19 08:59 Nifedipine (Procardia XL) 30 mg DAILY ORAL 11/13/19 09:00 12/10/19 17:59 11/13/19 09:46 Pantoprazole (Protonix) 40 mg BID ORAL 11/09/19 09:00 12/09/19 08:59 11/13/19 09:46 Sodium Chloride 1,000 ml @ 75 mls/hr [id number] IV 11/09/19 15:00 12/09/19 14:59 11/12/19 22:03 Tamsulosin HCl (Flomax) 0.4 mg BID ORAL 11/09/19 18:00 12/09/19 20:59 11/13/19 09:46 Laboratory Tests 11/13/19 06:30: Urine Eosinophils None seen 11/13/19 07:08: White Blood Count 5.5, Red Blood Count 2.73L, Hemoglobin 7.7L, Hematocrit 23.1L , Mean Corpuscular Volume 85, Mean Corpuscular Hemoglobin 28.2, Mean Corpuscular Hemoglobin Concent 33.4, Red Cell Distribution Width 12.0, Platelet Count 139L, Mean Platelet Volume 7.4, Neutrophils (%) (Auto) , Lymphocytes (%) ( Auto) , Monocytes (%) (Auto) , Eosinophils (%) (Auto) , Basophils (%) (Auto) , Differential Total Cells Counted 100, Neutrophils % (Manual) 73, Lymphocytes % ( Manual) 12L, Monocytes % (Manual) 15H, Eosinophils % (Manual) 0, Basophils % ( Manual) 0, Band Neutrophils 0, Platelet Estimate DecreasedL, Platelet Morphology Normal, Hypochromasia 3+, Anisocytosis 1+, Spherocytes 1+, Sodium Level 139, Potassium Level 3.8, Chloride Level 105, Carbon Dioxide Level 22, Anion Gap 12, Blood Urea Nitrogen 36H, Creatinine 3.3H, Estimat Glomerular Filtration Rate 21.5, Glucose Level 141H, Calcium Level 7.9L, Phosphorus Level 4.2, Magnesium Level 1.8, Total Bilirubin 0.4, Aspartate Amino Transf (AST/SGOT ) 29, Alanine Aminotransferase (ALT/SGPT) 16, Alkaline Phosphatase 43L, C- Reactive Protein, Quantitative 12.9H, Pro-B-Type Natriuretic Peptide 1653H, Total Protein 6.6, Albumin 2.8L, Globulin 3.8, Albumin/Globulin Ratio 0.7L Height (Feet): 5 Height (Inches): 10.00 Weight (Pounds): 196 General Appearance: no apparent distress Cardiovascular: tachycardia Respiratory/Chest: decreased breath sounds Abdomen: distended Objective No change Rodrigue Mackenzie MD Nov 13, 2019 11:29
--- NOTE | 2019-11-13 11:33 | NUR ---
NURSE NOTES: Reported fevers to Dr. Miranda. Dr. Singh called to report Hgb of 7.7 awaiting call back. Also spoke with Dr. Westfall at [address] patient on a NRB mask.
--- NOTE | 2019-11-13 11:44 | Pulmonology Progress Note ---
Assessment/Plan Assessment/Plan IMPRESSION: 1. Fever. 2. Positive COVID-19 pneumonia. 3. Multiple medical problems. 4. worsening oxygenation 5. Worsening renal failure DISCUSSION: Continue current medications and care. Broad spectrum antibiotics. 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 Has positive COVID-19. Worsening oxygenation Will check CXR ? dialysis Bill Westfall M.D. Subjective ROS Limited/Unobtainable: No Interval Events: Doing poorly; now on NRBM Constitutional: Reports: fever, other - Qm=297.7 HEENT: Repors: no symptoms Respiratory: Reports: shortness of breath Cardiovascular: Reports: no symptoms Gastrointestinal/Abdominal: Reports: no symptoms Genitourinary: Reports: no symptoms Allergies: Coded Allergies: No Known Allergies (Unverified , 05/27/15) Objective Last 24 Hour Vital Signs Date Time Temp Pulse Resp B/P (MAP) Pulse Ox O2 Delivery O2 Flow Rate FiO2 11/13/19 09:46 87 131/55 11/13/19 09:00 Venturi Mask 4.0 11/13/19 08:00 99.9 87 20 131/55 (80) 98 11/13/19 04:00 100.1 91 18 125/42 (69) 94 11/13/19 04:00 89 11/13/19 01:32 99.8 11/13/19 01:23 99.8 11/13/19 00:00 102 11/13/19 00:00 100.7 103 18 127/59 (81) 95 11/12/19 22:01 139/49 11/12/19 21:00 Room Air 11/12/19 20:00 99.9 97 19 139/49 (79) 97 11/12/19 20:00 97 11/12/19 17:00 94 119/42 (67) 11/12/19 17:00 95 136/61 (86) 11/12/19 16:00 91 11/12/19 16:00 98.8 91 32 115/50 (71) 99 11/12/19 16:00 92 92/45 (61) 11/12/19 13:39 111/52 11/12/19 12:00 99.0 103 21 111/52 (71) 98 11/12/19 12:00 89 Intake and Output 11/12/19 11/13/19 19:00 07:00 Intake Total 800 ml 210 ml Balance 800 ml 210 ml Intake Oral 800 ml 210 ml # Voids 2 General Appearance: no acute distress HEENT: mucous membranes moist Respiratory/Chest: chest wall non-tender, lungs clear Cardiovascular: normal peripheral pulses Abdomen: soft, non tender Extremities: no edema Neurologic/Psychiatric: other - sleeping Laboratory Tests 11/13/19 06:30: Urine Eosinophils None seen 11/13/19 07:08: White Blood Count 5.5, Red Blood Count 2.73L, Hemoglobin 7.7L, Hematocrit 23.1L , Mean Corpuscular Volume 85, Mean Corpuscular Hemoglobin 28.2, Mean Corpuscular Hemoglobin Concent 33.4, Red Cell Distribution Width 12.0, Platelet Count 139L, Mean Platelet Volume 7.4, Neutrophils (%) (Auto) , Lymphocytes (%) ( Auto) , Monocytes (%) (Auto) , Eosinophils (%) (Auto) , Basophils (%) (Auto) , Differential Total Cells Counted 100, Neutrophils % (Manual) 73, Lymphocytes % ( Manual) 12L, Monocytes % (Manual) 15H, Eosinophils % (Manual) 0, Basophils % ( Manual) 0, Band Neutrophils 0, Platelet Estimate DecreasedL, Platelet Morphology Normal, Hypochromasia 3+, Anisocytosis 1+, Spherocytes 1+, Sodium Level 139, Potassium Level 3.8, Chloride Level 105, Carbon Dioxide Level 22, Anion Gap 12, Blood Urea Nitrogen 36H, Creatinine 3.3H, Estimat Glomerular Filtration Rate 21.5, Glucose Level 141H, Calcium Level 7.9L, Phosphorus Level 4.2, Magnesium Level 1.8, Total Bilirubin 0.4, Aspartate Amino Transf (AST/SGOT ) 29, Alanine Aminotransferase (ALT/SGPT) 16, Alkaline Phosphatase 43L, C- Reactive Protein, Quantitative 12.9H, Pro-B-Type Natriuretic Peptide 1653H, Total Protein 6.6, Albumin 2.8L, Globulin 3.8, Albumin/Globulin Ratio 0.7L Current Medications Medications (Trade) Dose Ordered Sig/Mayank Route PRN Reason Start Time Stop Time Status Last Admin Dose Admin Acetaminophen (Tylenol) 500 mg Q4H PRN ORAL Mild Pain/Temp >100.5 11/08/19 21:45 12/08/19 21:44 11/13/19 01:02 Albumin Human 500 ml @ 0 mls/hr Q0M ONCE IV 11/13/19 11:30 11/13/19 11:31 UNV Aspirin (Ecotrin) 81 mg DAILY ORAL 11/12/19 09:00 12/27/19 08:59 11/13/19 09:46 Atorvastatin Calcium (Lipitor) 20 mg BEDTIME ORAL 11/12/19 21:00 02/10/20 20:59 11/12/19 22:01 Bethanechol Chloride (Urecholine) 25 mg THREE TIMES A DAY ORAL 11/09/19 09:00 12/09/19 08:59 11/13/19 09:46 Ceftriaxone Sodium 1 gm/ Dextrose 55 ml @ 110 mls/hr Q24H IVPB 11/09/19 14:00 11/16/19 13:59 11/12/19 13:38 Clonidine HCl (Catapres Tab) 0.1 mg Q4H PRN ORAL For High Blood Pressure 11/11/19 15:12 02/09/20 15:11 11/12/19 00:46 Dextrose (Dextrose 50%) 25 ml Q30M PRN IV Hypoglycemia 11/08/19 21:45 02/06/20 21:44 Dextrose (Dextrose 50%) 50 ml Q30M PRN IV Hypoglycemia 11/08/19 21:45 02/06/20 21:44 Docusate Sodium (Colace) 100 mg THREE TIMES A DAY ORAL 11/09/19 18:00 12/09/19 17:59 11/13/19 09:45 Epoetin Mohit (Epoetin Mohit-EPBX(NON ESRD)) 6,000 unit SUN-SUN-SUN SUBQ 11/10/19 21:00 02/08/20 20:59 11/12/19 22:02 Finasteride (Proscar) 5 mg DAILY ORAL 11/09/19 09:00 02/07/20 08:59 11/13/19 09:46 Hydralazine HCl (Apresoline) 50 mg Q8HR ORAL 11/12/19 14:00 02/07/20 13:59 11/12/19 22:01 Hydroxychloroquine Sulfate (Plaquenil) 200 mg Q12HR ORAL 11/13/19 21:00 11/17/19 09:01 Insulin Aspart (NovoLOG) BEFORE MEALS AND HS SUBQ 11/08/19 23:00 02/07/20 22:59 11/12/19 06:18 Insulin Detemir (Levemir) 14 units Q24H SUBQ 11/10/19 09:00 02/07/20 08:59 11/12/19 09:00 Mirtazapine (Remeron) 7.5 mg BEDTIME ORAL 11/08/19 23:00 02/06/20 22:59 11/12/19 22:01 Nateglinide (Starlix) 120 mg THREE TIMES A DAY ORAL 11/13/19 13:00 12/09/19 08:59 Nifedipine (Procardia XL) 30 mg DAILY ORAL 11/13/19 09:00 12/10/19 17:59 11/13/19 09:46 Pantoprazole (Protonix) 40 mg BID ORAL 11/09/19 09:00 12/09/19 08:59 11/13/19 09:46 Sodium Chloride 1,000 ml @ 75 mls/hr [id number] IV 11/09/19 15:00 12/09/19 14:59 11/12/19 22:03 Tamsulosin HCl (Flomax) 0.4 mg BID ORAL 11/09/19 18:00 12/09/19 20:59 11/13/19 09:46 Bill Westfall MD Nov 13, 2019 11:44
--- NOTE | 2019-11-13 12:08 | Hematology/Onc Progress Note ---
Assessment/Plan Assessment/Plan Assess/Recs: # Pancytopenia -- initially with Anemia of chronic disease due to underlying chronic medical issues, multifactorial, also covie19 related --> Anemia workup has been ordered spep neg, ferritin is 117 --> No evidence of hemolysis is noted, peripheral smear has been reviewed. --> Hgb goal >7. Transfuse prn. --> Epogen or iron at this time is not particularly indicated --> Medications have been reviewed --> plt 136-->138 --> hgb 7.7 --> wbc 3.6-->5 # Thrombocytopenia is likely due to UTI with sepsis --> management as per id --> CT of abdomen pelvis without contrast read by radiology showed bladder thickening and possible cystitis prior admission --> as per id recs --> plt trend 174-->138 --> smear is noted # Fever with cough --> covid+ --> iso --> as per id --> on ctx # MISAEL on ckd --> as per renal team # DM nephropathy # BPH # Hypokalemia --> replete with k as needed The timing of this note does not necessarily reflect the time of the patient was seen. Greatly appreciate consultation! Subjective Constitutional: Denies: no symptoms, chills, fever, malaise, weakness, other HEENT: Denies: no symptoms, eye pain, blurred vision, tearing, double vision, ear pain, ear discharge, nose pain, nose congestion, throat pain, throat swelling, mouth pain, mouth swelling, other Cardiovascular: Denies: no symptoms, chest pain, edema, irregular heart rate, lightheadedness, palpitations, syncope, other Gastrointestinal/Abdominal: Denies: no symptoms, abdomen distended, abdominal pain, black stools, tarry stools, blood in stool, constipated, diarrhea, difficulty swallowing, nausea, poor appetite, poor fluid intake, rectal bleeding , vomiting, other Genitourinary: Denies: no symptoms, burning, discharge, frequency, flank pain, hematuria, incontinence, pain, urgency, other Endocrine: Denies: no symptoms, excessive sweating, flushing, intolerance to cold, intolerance to heat, increased hunger, increased thirst, increased urine, unexplained weight gain, unexplained weight loss, other Allergies: Coded Allergies: No Known Allergies (Unverified , 05/27/15) Subjective 11/09 labs reviewed, no bleeding, meds noted, seen by cards, cbc pendin 11/10 labs noted, no bleeding, serology neg, supportive care for covid19 11/11 bp high, hydralazine given overnight, on mirtaazapine, no changes 11/12 on a nrb, no bleeding, meds noted, no night sweats Objective Objective Current Medications Medications (Trade) Dose Ordered Sig/Mayank Route PRN Reason Start Time Stop Time Status Last Admin Dose Admin Acetaminophen (Tylenol) 500 mg Q4H PRN ORAL Mild Pain/Temp >100.5 11/08/19 21:45 12/08/19 21:44 11/13/19 01:02 Aspirin (Ecotrin) 81 mg DAILY ORAL 11/12/19 09:00 12/27/19 08:59 11/13/19 09:46 Atorvastatin Calcium (Lipitor) 20 mg BEDTIME ORAL 11/12/19 21:00 02/10/20 20:59 11/12/19 22:01 Bethanechol Chloride (Urecholine) 25 mg THREE TIMES A DAY ORAL 11/09/19 09:00 12/09/19 08:59 11/13/19 09:46 Ceftriaxone Sodium 1 gm/ Dextrose 55 ml @ 110 mls/hr Q24H IVPB 11/09/19 14:00 11/16/19 13:59 11/12/19 13:38 Clonidine HCl (Catapres Tab) 0.1 mg Q4H PRN ORAL For High Blood Pressure 11/11/19 15:12 02/09/20 15:11 11/12/19 00:46 Dextrose (Dextrose 50%) 25 ml Q30M PRN IV Hypoglycemia 11/08/19 21:45 02/06/20 21:44 Dextrose (Dextrose 50%) 50 ml Q30M PRN IV Hypoglycemia 11/08/19 21:45 02/06/20 21:44 Docusate Sodium (Colace) 100 mg THREE TIMES A DAY ORAL 11/09/19 18:00 12/09/19 17:59 11/13/19 09:45 Epoetin Mohit (Epoetin Mohit-EPBX(NON ESRD)) 6,000 unit SUN-SUN-SUN SUBQ 11/10/19 21:00 7/26/20 20:59 11/12/19 22:02 Finasteride (Proscar) 5 mg DAILY ORAL 11/09/19 09:00 02/07/20 08:59 11/13/19 09:46 Hydralazine HCl (Apresoline) 50 mg Q8HR ORAL 11/12/19 14:00 02/07/20 13:59 11/12/19 22:01 Hydroxychloroquine Sulfate (Plaquenil) 200 mg Q12HR ORAL 11/13/19 21:00 11/17/19 09:01 Insulin Aspart (NovoLOG) BEFORE MEALS AND HS SUBQ 11/08/19 23:00 02/07/20 22:59 11/12/19 06:18 Insulin Detemir (Levemir) 14 units Q24H SUBQ 11/10/19 09:00 02/07/20 08:59 11/12/19 09:00 Mirtazapine (Remeron) 7.5 mg BEDTIME ORAL 11/08/19 23:00 02/06/20 22:59 11/12/19 22:01 Nateglinide (Starlix) 120 mg THREE TIMES A DAY ORAL 11/13/19 13:00 12/09/19 08:59 Nifedipine (Procardia XL) 30 mg DAILY ORAL 11/13/19 09:00 12/10/19 17:59 11/13/19 09:46 Pantoprazole (Protonix) 40 mg BID ORAL 11/09/19 09:00 12/09/19 08:59 11/13/19 09:46 Sodium Chloride 1,000 ml @ 75 mls/hr [id number] IV 11/09/19 15:00 12/09/19 14:59 11/12/19 22:03 Tamsulosin HCl (Flomax) 0.4 mg BID ORAL 11/09/19 18:00 12/09/19 20:59 11/13/19 09:46 Last 24 Hour Vital Signs Date Time Temp Pulse Resp B/P (MAP) Pulse Ox O2 Delivery O2 Flow Rate FiO2 11/13/19 09:46 87 131/55 11/13/19 09:00 Venturi Mask 4.0 11/13/19 08:00 86 11/13/19 08:00 99.9 87 20 131/55 (80) 98 4/30/20 04:00 100.1 91 18 125/42 (69) 94 11/13/19 04:00 89 11/13/19 01:32 99.8 11/13/19 01:23 99.8 11/13/19 00:00 102 11/13/19 00:00 100.7 103 18 127/59 (81) 95 11/12/19 22:01 139/49 11/12/19 21:00 Room Air 11/12/19 20:00 99.9 97 19 139/49 (79) 97 11/12/19 20:00 97 11/12/19 17:00 94 119/42 (67) 11/12/19 17:00 95 136/61 (86) 11/12/19 16:00 91 11/12/19 16:00 98.8 91 32 115/50 (71) 99 11/12/19 16:00 92 92/45 (61) 11/12/19 13:39 111/52 11/12/19 12:00 99.0 103 21 111/52 (71) 98 11/12/19 12:00 89 11/12/19 08:21 Room Air 11/12/19 08:00 82 11/12/19 08:00 98.7 101 22 108/49 (68) 97 11/12/19 06:00 104/93 11/12/19 04:00 99.3 99 24 104/43 (63) 96 11/12/19 04:00 89 11/12/19 01:45 97.7 102 24 131/53 (79) 97 11/12/19 00:46 171/81 11/12/19 00:00 102.4 102 32 171/81 (111) 92 11/12/19 00:00 101 11/11/19 22:11 134/56 11/11/19 21:10 134/56 11/11/19 21:00 Room Air 11/11/19 20:00 99.7 89 26 134/56 (82) 92 11/11/19 20:00 91 11/11/19 17:28 83 155/61 11/11/19 16:00 98.6 83 19 155/61 (92) 96 11/11/19 16:00 90 11/11/19 14:09 151/74 Intake and Output 11/12/19 11/13/19 19:00 07:00 Intake Total 800 ml 210 ml Balance 800 ml 210 ml Intake Oral 800 ml 210 ml # Voids 2 Labs Test 11/11/19 05:29 11/12/19 07:45 11/13/19 06:30 11/13/19 07:08 White Blood Count 5.8 K/UL (4.8-10.8) 5.3 K/UL (4.8-10.8) 5.5 K/UL (4.8-10.8) Red Blood Count 3.04 M/UL (4.70-6.10) 2.98 M/UL (4.70-6.10) 2.73 M/UL (4.70-6.10) Hemoglobin 8.5 G/DL (14.2-18.0) 8.3 G/DL (14.2-18.0) 7.7 G/DL (14.2-18.0) Hematocrit 25.6 % (42.0-52.0) 25.1 % (42.0-52.0) 23.1 % (42.0-52.0) Mean Corpuscular Volume 84 FL (80-99) 84 FL (80-99) 85 FL (80-99) Mean Corpuscular Hemoglobin 28.1 PG (27.0-31.0) 27.9 PG (27.0-31.0) 28.2 PG (27.0-31.0) Mean Corpuscular Hemoglobin Concent 33.3 G/DL (32.0-36.0) 33.2 G/DL (32.0-36.0) 33.4 G/DL (32.0-36.0) Red Cell Distribution Width 12.1 % (11.6-14.8) 12.1 % (11.6-14.8) 12.0 % (11.6-14.8) Platelet Count 137 K/UL (150-450) 140 K/UL (150-450) 139 K/UL (150-450) Mean Platelet Volume 8.1 FL (6.5-10.1) 7.3 FL (6.5-10.1) 7.4 FL (6.5-10.1) Neutrophils (%) (Auto) 62.9 % (45.0-75.0) 69.0 % (45.0-75.0) % (45.0-75.0) Lymphocytes (%) (Auto) 21.2 % (20.0-45.0) 16.8 % (20.0-45.0) % (20.0-45.0) Monocytes (%) (Auto) 14.6 % (1.0-10.0) 13.8 % (1.0-10.0) % (1.0-10.0) Eosinophils (%) (Auto) 0.7 % (0.0-3.0) 0.1 % (0.0-3.0) % (0.0-3.0) Basophils (%) (Auto) 0.7 % (0.0-2.0) 0.3 % (0.0-2.0) % (0.0-2.0) D-Dimer 0.77 mg/L FEU (0.00-0.49) Sodium Level 142 MMOL/L (136-145) 139 MMOL/L (136-145) 139 MMOL/L (136-145) Potassium Level 3.4 MMOL/L (3.5-5.1) 3.8 MMOL/L (3.5-5.1) 3.8 MMOL/L (3.5-5.1) Chloride Level 107 MMOL/L (98-107) 106 MMOL/L (98-107) 105 MMOL/L (98-107) Carbon Dioxide Level 24 MMOL/L (21-32) 24 MMOL/L (21-32) 22 MMOL/L (21-32) Anion Gap 11 mmol/L (5-15) 9 mmol/L (5-15) 12 mmol/L (5-15) Blood Urea Nitrogen 22 mg/dL (7-18) 26 mg/dL (7-18) 36 mg/dL (7-18) Creatinine 2.3 MG/DL (0.55-1.30) 2.9 MG/DL (0.55-1.30) 3.3 MG/DL (0.55-1.30) Estimat Glomerular Filtration Rate 32.6 mL/min (>60) 25.0 mL/min (>60) 21.5 mL/min (>60) Glucose Level 183 MG/DL (74-106) 189 MG/DL (74-106) 141 MG/DL (74-106) Uric Acid 5.3 MG/DL (2.6-7.2) 5.0 MG/DL (2.6-7.2) Calcium Level 7.4 MG/DL (8.5-10.1) 7.8 MG/DL (8.5-10.1) 7.9 MG/DL (8.5-10.1) Phosphorus Level 3.7 MG/DL (2.5-4.9) 3.9 MG/DL (2.5-4.9) 4.2 MG/DL (2.5-4.9) Magnesium Level 1.8 MG/DL (1.8-2.4) 1.8 MG/DL (1.8-2.4) Total Bilirubin 0.4 MG/DL (0.2-1.0) 0.4 MG/DL (0.2-1.0) 0.4 MG/DL (0.2-1.0) Aspartate Amino Transf (AST/SGOT) 29 U/L (15-37) 23 U/L (15-37) 29 U/L (15-37) Alanine Aminotransferase (ALT/SGPT) 25 U/L (12-78) 17 U/L (12-78) 16 U/L (12-78) Alkaline Phosphatase 58 U/L (46-116) 49 U/L (46-116) 43 U/L (46-116) Lactate Dehydrogenase 250 U/L (81-234) C-Reactive Protein, Quantitative 1.0 mg/dL (0.00-0.90) 6.3 mg/dL (0.00-0.90) 12.9 mg/dL (0.00-0.90) Total Protein 6.7 G/DL (6.4-8.2) 6.3 G/DL (6.4-8.2) 6.6 G/DL (6.4-8.2) Albumin 2.6 G/DL (3.4-5.0) 2.5 G/DL (3.4-5.0) 2.8 G/DL (3.4-5.0) Globulin 4.1 g/dL 3.8 g/dL 3.8 g/dL Albumin/Globulin Ratio 0.6 (1.0-2.7) 0.7 (1.0-2.7) 0.7 (1.0-2.7) Urine Eosinophils None seen (NONE SEEN) Differential Total Cells Counted 100 Neutrophils % (Manual) 73 % (45-75) Lymphocytes % (Manual) 12 % (20-45) Monocytes % (Manual) 15 % (1-10) Eosinophils % (Manual) 0 % (0-3) Basophils % (Manual) 0 % (0-2) Band Neutrophils 0 % (0-8) Platelet Estimate Decreased Platelet Morphology Normal Hypochromasia 3+ Anisocytosis 1+ Spherocytes 1+ Pro-B-Type Natriuretic Peptide 1653 pg/mL (0-125) Height (Feet): 5 Height (Inches): 10.00 Weight (Pounds): 196 Objective vitals: noted ENT: dry mucus membranes Neck: limited range of motion Respiratory: decreased breath sounds nrm+++ Cardiovascular: normal peripheral pulses, rrr Gastrointestinal: normal bowel sounds, soft, tenderness - suprapubic Musculoskeletal: decreased range of motion Neurologic: normal inspection, alert, responsive Psychiatric: normal inspection Skin: normal inspection, normal color Cesar Singh MD Nov 13, 2019 12:08
[2019-11-13] MEDS: cefTRIAXone 1 GM in D5W 55 ML IVPB SCH (13:54)
--- NOTE | 2019-11-13 18:57 | Cardiology Progress Note ---
Assessment/Plan Assessment/Plan 1. Elevated troponin I level in this patient likely acute HFpEF in view of CKD, HTN and age. Continue ASA and statins. 2. Severe with HERMINIO at 0.8 cm2. Avoid potent diuretics. 3. DM, continue ASA and statins. 4. Hypertension secondary renal parenchymal disease, well controlled, continue hydralazine and nifedipine, off minoxidil due to hypotension. 5. CKD. 6. COVID-19 pneumonia on Ceftriaxone, ID follow-up. Subjective Subjective Sinus rhythm at rate of 87. Objective Last 24 Hour Vital Signs Date Time Temp Pulse Resp B/P (MAP) Pulse Ox O2 Delivery O2 Flow Rate FiO2 11/13/19 16:00 87 11/13/19 13:56 150/52 11/13/19 12:00 99.1 83 20 150/52 (84) 100 11/13/19 12:00 81 11/13/19 09:46 87 131/55 11/13/19 09:00 Venturi Mask 4.0 11/13/19 08:00 86 11/13/19 08:00 99.9 87 20 131/55 (80) 98 11/13/19 04:00 100.1 91 18 125/42 (69) 94 11/13/19 04:00 89 11/13/19 01:32 99.8 11/13/19 01:23 99.8 11/13/19 00:00 102 11/13/19 00:00 100.7 103 18 127/59 (81) 95 11/12/19 22:01 139/49 11/12/19 21:00 Room Air 11/12/19 20:00 99.9 97 19 139/49 (79) 97 11/12/19 20:00 97 Intake and Output 11/12/19 11/13/19 19:00 07:00 Intake Total 800 ml 210 ml Balance 800 ml 210 ml Intake Oral 800 ml 210 ml # Voids 2 2D Echo: EF 55%, HERMINIO 0.8cm2, RVSP 48, mod MR, Mild AR/WI, Grade I LVDD Laboratory Tests Test 11/13/19 06:30 11/13/19 07:08 Urine Eosinophils None seen (NONE SEEN) White Blood Count 5.5 K/UL (4.8-10.8) Red Blood Count 2.73 M/UL (4.70-6.10) L Hemoglobin 7.7 G/DL (14.2-18.0) L Hematocrit 23.1 % (42.0-52.0) L Mean Corpuscular Volume 85 FL (80-99) Mean Corpuscular Hemoglobin 28.2 PG (27.0-31.0) Mean Corpuscular Hemoglobin Concent 33.4 G/DL (32.0-36.0) Red Cell Distribution Width 12.0 % (11.6-14.8) Platelet Count 139 K/UL (150-450) L Mean Platelet Volume 7.4 FL (6.5-10.1) Neutrophils (%) (Auto) % (45.0-75.0) Lymphocytes (%) (Auto) % (20.0-45.0) Monocytes (%) (Auto) % (1.0-10.0) Eosinophils (%) (Auto) % (0.0-3.0) Basophils (%) (Auto) % (0.0-2.0) Differential Total Cells Counted 100 Neutrophils % (Manual) 73 % (45-75) Lymphocytes % (Manual) 12 % (20-45) L Monocytes % (Manual) 15 % (1-10) H Eosinophils % (Manual) 0 % (0-3) Basophils % (Manual) 0 % (0-2) Band Neutrophils 0 % (0-8) Platelet Estimate Decreased L Platelet Morphology Normal Hypochromasia 3+ Anisocytosis 1+ Spherocytes 1+ Sodium Level 139 MMOL/L (136-145) Potassium Level 3.8 MMOL/L (3.5-5.1) Chloride Level 105 MMOL/L (98-107) Carbon Dioxide Level 22 MMOL/L (21-32) Anion Gap 12 mmol/L (5-15) Blood Urea Nitrogen 36 mg/dL (7-18) H Creatinine 3.3 MG/DL (0.55-1.30) H Estimat Glomerular Filtration Rate 21.5 mL/min (>60) Glucose Level 141 MG/DL (74-106) H Calcium Level 7.9 MG/DL (8.5-10.1) L Phosphorus Level 4.2 MG/DL (2.5-4.9) Magnesium Level 1.8 MG/DL (1.8-2.4) Total Bilirubin 0.4 MG/DL (0.2-1.0) Aspartate Amino Transf (AST/SGOT) 29 U/L (15-37) Alanine Aminotransferase (ALT/SGPT) 16 U/L (12-78) Alkaline Phosphatase 43 U/L (46-116) L C-Reactive Protein, Quantitative 12.9 mg/dL (0.00-0.90) H Pro-B-Type Natriuretic Peptide 1653 pg/mL (0-125) H Total Protein 6.6 G/DL (6.4-8.2) Albumin 2.8 G/DL (3.4-5.0) L Globulin 3.8 g/dL Albumin/Globulin Ratio 0.7 (1.0-2.7) L Objective HEENT: Atraumatic and normocephalic. Anicteric. Pupils are equal, round, and reactive to light and accommodation. Extraocular muscles intact. NECK: JVP less than 5 cm. No carotid bruit. Carotid upstrokes 2+ bilaterally. CARDIOVASCULAR: Normal S1, S2. Regular rate and rhythm. 2/6 ESM at LSB, gallops, or rubs. PMI is at fourth intercostal space at the midclavicular line. LUNGS: Bibasilar crackles with diminished both lungs. ABDOMEN: Soft, nontender, nondistended. No hepatosplenomegaly. Positive bowel sounds. EXTREMITIES: No evidence of edema, clubbing, or cyanosis. Dick Payan MD Nov 13, 2019 18:57
--- NOTE | 2019-11-13 19:00 | NUR ---
NURSE NOTES: Attempted to transfuse patient but on assessment, patient found to have a temperature of 101.8F. When I tried to administer Tylenol in apple sauce. Pt only took one spoonful and would not swallow it so he spit it out. Pt now confused and is not following commands and only responds "Okay". Dr. Miller contacted.
--- NOTE | 2019-11-13 19:19 | NUR ---
NURSE NOTES: Patient sleeping at this time. No s/sx of distress or pain. RR even and unlabored on Venturi 33% 4L Side rails upx2, call light within reach, bed low and locked. Will continue to monitor. Addendum: 11/13/19 at 1935 by KWASI ZELAYA RN DISREGARD. INCORRECT TIME STAMP
[2019-11-13] MEDS ORDERED: Acetaminophen 650 MG SUPP RECTAL PRN (19:45)
--- NOTE | 2019-11-13 20:06 | NUR ---
NURSE NOTES: Received report from BENOIT Marie. Patient is on bed, alert and oriented x 1-2. Patient is on consistent carb (medium) diet. secured entrance monitor is in placed, shows sinus rhythm and no chest pain reported at this time. Patient is on non-rebreather mask @ 15 Lpm. IV site is on left wrist g-20 saline lock and right wrist g-20 fluid running of 1/2 NS @ 75cc/hour that is intact and patent. Condom catheter is in placed. On fall and aspiration precaution. No skin issues, safety measures are in placed. Bed in low and locked position, bed alarm is on side rails up x 3. Call light and bedside table within reach. Will continue plan of care.
--- NOTE | 2019-11-13 20:20 | NUR ---
HAND-OFF: Report given to Marti LABOY. Order received for rectal tylenol and [facility] transfer. Night RN, discharge coordinator and nursing supervisor claims notified.
--- NOTE | 2019-11-13 20:22 | General Progress Note ---
Assessment/Plan Problem List: (1) Sepsis ICD Codes: A41.9 - Sepsis, unspecified organism SNOMED: 88620167 (2) Diabetes ICD Codes: E11.9 - Type 2 diabetes mellitus without complications SNOMED: 46500667 (3) BPH (benign prostatic hyperplasia) ICD Codes: N40.0 - Benign prostatic hyperplasia without lower urinary tract symptoms SNOMED: 063740237 (4) Anemia ICD Codes: D64.9 - Anemia, unspecified SNOMED: 770410618 (5) Acute on chronic renal failure ICD Codes: N17.9 - Acute kidney failure, unspecified; N18.9 - Chronic kidney disease, unspecified SNOMED: 474667110 (6) Fever ICD Codes: R50.9 - Fever, unspecified SNOMED: 716746362 Qualifiers: Qualified Codes: R50.9 - Fever, unspecified (7) Suspected COVID-19 virus infection ICD Codes: Z20.828 - Contact with and (suspected) exposure to other viral communicable diseases SNOMED: 162080323 (8) UTI (urinary tract infection) ICD Codes: N39.0 - Urinary tract infection, site not specified SNOMED: 45261419 Qualifiers: Qualified Codes: N39.0 - Urinary tract infection, site not specified (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 SNOMED: 22747316, 123556647 (10) Hypertension ICD Codes: I10 - Essential (primary) hypertension SNOMED: 35930812 Status: progressing Assessment/Plan: persistent fever on abx worsening renal failure transfer to [facility].7 consulted heme/onc more lethargic encephalopathy uti pna had fever early this am is covid positive pna Subjective ROS Limited/Unobtainable: Yes Allergies: Coded Allergies: No Known Allergies (Unverified , 05/27/15) Objective Last 24 Hour Vital Signs Date Time Temp Pulse Resp B/P (MAP) Pulse Ox O2 Delivery O2 Flow Rate FiO2 11/13/19 16:00 99.1 83 20 162/75 (104) 98 11/13/19 16:00 87 11/13/19 13:56 150/52 11/13/19 12:00 99.1 83 20 150/52 (84) 100 11/13/19 12:00 81 11/13/19 09:46 87 131/55 11/13/19 09:00 Venturi Mask 4.0 11/13/19 08:00 86 11/13/19 08:00 99.9 87 20 131/55 (80) 98 11/13/19 04:00 100.1 91 18 125/42 (69) 94 11/13/19 04:00 89 11/13/19 01:32 99.8 11/13/19 01:23 99.8 11/13/19 00:00 102 11/13/19 00:00 100.7 103 18 127/59 (81) 95 11/12/19 22:01 139/49 11/12/19 21:00 Room Air Intake and Output 11/12/19 11/13/19 19:00 07:00 Intake Total 800 ml 285 ml Balance 800 ml 285 ml Intake Oral 800 ml 210 ml IV Total 75 ml # Voids 2 Laboratory Tests 11/13/19 06:30: Urine Eosinophils None seen 11/13/19 07:08: White Blood Count 5.5, Red Blood Count 2.73L, Hemoglobin 7.7L, Hematocrit 23.1L , Mean Corpuscular Volume 85, Mean Corpuscular Hemoglobin 28.2, Mean Corpuscular Hemoglobin Concent 33.4, Red Cell Distribution Width 12.0, Platelet Count 139L, Mean Platelet Volume 7.4, Neutrophils (%) (Auto) , Lymphocytes (%) ( Auto) , Monocytes (%) (Auto) , Eosinophils (%) (Auto) , Basophils (%) (Auto) , Differential Total Cells Counted 100, Neutrophils % (Manual) 73, Lymphocytes % ( Manual) 12L, Monocytes % (Manual) 15H, Eosinophils % (Manual) 0, Basophils % ( Manual) 0, Band Neutrophils 0, Platelet Estimate DecreasedL, Platelet Morphology Normal, Hypochromasia 3+, Anisocytosis 1+, Spherocytes 1+, Sodium Level 139, Potassium Level 3.8, Chloride Level 105, Carbon Dioxide Level 22, Anion Gap 12, Blood Urea Nitrogen 36H, Creatinine 3.3H, Estimat Glomerular Filtration Rate 21.5, Glucose Level 141H, Calcium Level 7.9L, Phosphorus Level 4.2, Magnesium Level 1.8, Total Bilirubin 0.4, Aspartate Amino Transf (AST/SGOT ) 29, Alanine Aminotransferase (ALT/SGPT) 16, Alkaline Phosphatase 43L, C- Reactive Protein, Quantitative 12.9H, Pro-B-Type Natriuretic Peptide 1653H, Total Protein 6.6, Albumin 2.8L, Globulin 3.8, Albumin/Globulin Ratio 0.7L Height (Feet): 5 Height (Inches): 10.00 Weight (Pounds): 196 General Appearance: lethargic, confused Aliyah Miller MD Nov 13, 2019 20:22
[2019-11-13] MEDS: Atorvastatin 20mg tab ORAL SCH (20:50)
--- NOTE | 2019-11-13 22:18 | NUR ---
NURSE NOTES: Spoke to patient's son (South) and informed him that his dad is going to transfer in SDU, agreed with Dr. Miller's plan.
--- NOTE | 2019-11-13 23:00 | NUR ---
NURSE NOTES: Spoke again with patient's son (alfredo) and he wanted the doctor to explain to him the benefits of hydrochloroquine before he agreed to continue it. Called DR. Mary Hurst and left a message about the patient's son request. Will endorse to [facility] nurse.
--- NOTE | 2019-11-13 23:40 | NUR ---
TRANSFER TO FLOOR: Patient transferred to SDU, per bed in covid-19 isolation protocol. Report given to Rodney. Belongings and insulin pen given to RN in charge. Family informed of transfer. Patient is in stable condition, plan of care endorsed.
--- NOTE | 2019-11-13 23:41 | NUR ---
NURSE NOTES: received patient from BENOIT Catherine. Patient is aaox1, lethargic, vss with temp of 100.8, on cardiac technician and no acute distress. Patient is cooperative, clean and on a non rebreather mask saturating at 100%. Capillary refill is less then 3 seconds, skin is intact with protection on his sacral and heels. Left wrist 20g, right wrist 20g both patent and no signs of infection. 1 unit blood pending reduction of fever. Bed at its lowest position, call light in reach, x3 bed rails are up, bed alarm bed is locked. Will continue to monitor.
[2019-11-14] VITALS: BP 160/65
--- NOTE | 2019-11-14 02:05 | NUR ---
NURSE NOTES: Patient is sitting on the side of the bed, aaox3, and refusing to sit back in bed, Oral temp is 97.3. Blood transfusion needed and explained to patient. Patient still refuses to sit back in bed and remains on the side of the bed. Will be with patient until he gets back in bed. Will start transfusion when patient cooperates.
[2019-11-14 04:00] VITALS: BP 173/90
[2019-11-14] MEDS: HydrALAZINE 50mg tab ORAL SCH ×3 (05:32→22:07)
[2019-11-14] MEDS: Acetaminophen 500mg (ES) tab ORAL PRN (05:33)
[2019-11-14] MEDS: NovoLOG Insulin Flexpen SUBQ SCH ×4 (05:41→22:33)
--- NOTE | 2019-11-14 06:54 | Hematology/Onc Progress Note ---
Assessment/Plan Assessment/Plan Assess/Recs: # Pancytopenia -- initially with Anemia of chronic disease due to underlying chronic medical issues, multifactorial, also covie19 related, noted also with uti and sepsis --> Anemia workup has been ordered spep neg, ferritin is 117 --> No evidence of hemolysis is noted, peripheral smear has been reviewed. --> Hgb goal >7. Transfuse prn. --> Epogen or iron at this time is not particularly indicated --> Medications have been reviewed --> plt 136-->138--.139 --> hgb 7.7 --> wbc 3.6-->5 --> CT of abdomen pelvis without contrast read by radiology showed bladder thickening and possible cystitis prior admission --> as per id recs # [id number]++ Fever with cough --> covid+ --> iso --> as per id --> on ctx # MISAEL on ckd --> as per renal team # DM nephropathy # BPH # Hypokalemia --> replete with k as needed The timing of this note does not necessarily reflect the time of the patient was seen. Greatly appreciate consultation! Subjective Constitutional: Denies: no symptoms, chills, fever, malaise, weakness, other HEENT: Denies: no symptoms, eye pain, blurred vision, tearing, double vision, ear pain, ear discharge, nose pain, nose congestion, throat pain, throat swelling, mouth pain, mouth swelling, other Cardiovascular: Denies: no symptoms, chest pain, edema, irregular heart rate, lightheadedness, palpitations, syncope, other Respiratory: Denies: no symptoms, cough, shortness of breath, SOB with excertion, SOB at rest, sputum, wheezing, other Gastrointestinal/Abdominal: Denies: no symptoms, abdomen distended, abdominal pain, black stools, tarry stools, blood in stool, constipated, diarrhea, difficulty swallowing, nausea, poor appetite, poor fluid intake, rectal bleeding , vomiting, other Genitourinary: Denies: no symptoms, burning, discharge, frequency, flank pain, hematuria, incontinence, pain, urgency, other Neurologic/Psychiatric: Denies: no symptoms, anxiety, depressed, emotional problems, headache, numbness, paresthesia, pre-existing deficit, seizure, tingling, tremors, weakness, other Allergies: Coded Allergies: No Known Allergies (Unverified , 05/27/15) Subjective 11/09 labs reviewed, no bleeding, meds noted, seen by cards, cbc pendin 11/10 labs noted, no bleeding, serology neg, supportive care for covid19 11/11 bp high, hydralazine given overnight, on mirtaazapine, no changes 11/12 on a nrb, no bleeding, meds noted, no night sweats 11/13 blood was given yesterday, overnight, no traction, no night sweats Objective Objective Current Medications Medications (Trade) Dose Ordered Sig/Mayank Route PRN Reason Start Time Stop Time Status Last Admin Dose Admin Acetaminophen (Tylenol) 500 mg Q4H PRN ORAL Mild Pain/Temp >100.5 11/08/19 21:45 12/08/19 21:44 11/14/19 05:33 Acetaminophen (Tylenol) 650 mg Q4H PRN RECTAL Mild Pain (Pain Scale 1-3) 11/13/19 19:45 12/13/19 19:44 11/13/19 20:52 Aspirin (Ecotrin) 81 mg DAILY ORAL 11/12/19 09:00 12/27/19 08:59 11/13/19 09:46 Atorvastatin Calcium (Lipitor) 20 mg BEDTIME ORAL 11/12/19 21:00 02/10/20 20:59 11/13/19 20:50 Bethanechol Chloride (Urecholine) 25 mg THREE TIMES A DAY ORAL 11/09/19 09:00 12/09/19 08:59 11/13/19 17:27 Ceftriaxone Sodium 1 gm/ Dextrose 55 ml @ 110 mls/hr Q24H IVPB 11/09/19 14:00 11/16/19 13:59 11/13/19 13:54 Clonidine HCl (Catapres Tab) 0.1 mg Q4H PRN ORAL For High Blood Pressure 11/11/19 15:12 02/09/20 15:11 11/12/19 00:46 Dextrose (Dextrose 50%) 25 ml Q30M PRN IV Hypoglycemia 11/08/19 21:45 02/06/20 21:44 Dextrose (Dextrose 50%) 50 ml Q30M PRN IV Hypoglycemia 11/08/19 21:45 02/06/20 21:44 Docusate Sodium (Colace) 100 mg THREE TIMES A DAY ORAL 11/09/19 18:00 12/09/19 17:59 11/13/19 17:28 Epoetin Mohit (Epoetin Mohit-EPBX(NON ESRD)) 6,000 unit SUN-SUN-SUN SUBQ 11/10/19 21:00 02/08/20 20:59 11/12/19 22:02 Finasteride (Proscar) 5 mg DAILY ORAL 11/09/19 09:00 02/07/20 08:59 11/13/19 09:46 Hydralazine HCl (Apresoline) 50 mg Q8HR ORAL 11/12/19 14:00 02/07/20 13:59 11/14/19 05:32 Insulin Aspart (NovoLOG) BEFORE MEALS AND HS SUBQ 11/08/19 23:00 02/07/20 22:59 11/14/19 05:41 Insulin Detemir (Levemir) 14 units Q24H SUBQ 11/10/19 09:00 02/07/20 08:59 11/12/19 09:00 Mirtazapine (Remeron) 7.5 mg BEDTIME ORAL 11/08/19 23:00 02/06/20 22:59 11/13/19 20:50 Nateglinide (Starlix) 120 mg THREE TIMES A DAY ORAL 11/13/19 13:00 12/09/19 08:59 11/13/19 17:27 Nifedipine (Procardia XL) 30 mg DAILY ORAL 11/13/19 09:00 12/10/19 17:59 11/13/19 09:46 Pantoprazole (Protonix) 40 mg BID ORAL 11/09/19 09:00 12/09/19 08:59 11/13/19 17:28 Sodium Chloride 1,000 ml @ 75 mls/hr [id number] IV 11/09/19 15:00 12/09/19 14:59 11/14/19 01:10 Tamsulosin HCl (Flomax) 0.4 mg BID ORAL 11/09/19 18:00 12/09/19 20:59 11/13/19 17:27 Last 24 Hour Vital Signs Date Time Temp Pulse Resp B/P (MAP) Pulse Ox O2 Delivery O2 Flow Rate FiO2 11/14/19 05:32 168/74 11/14/19 04:00 108 11/14/19 04:00 97.6 107 24 173/90 (117) 100 11/14/19 00:00 99.8 89 19 160/65 (96) 100 11/14/19 00:00 81 11/13/19 22:40 100.8 87 20 166/70 (102) 100 11/13/19 22:00 162/60 11/13/19 21:25 99.5 11/13/19 21:00 Non-Rebreather 15.0 11/13/19 20:00 93 11/13/19 20:00 101.3 91 19 158/60 (92) 95 11/13/19 16:00 99.1 83 20 162/75 (104) 98 11/13/19 16:00 87 11/13/19 13:56 150/52 11/13/19 12:00 99.1 83 20 150/52 (84) 100 11/13/19 12:00 81 11/13/19 09:46 87 131/55 11/13/19 09:00 Venturi Mask 4.0 11/13/19 08:00 86 11/13/19 08:00 99.9 87 20 131/55 (80) 98 11/13/19 04:00 100.1 91 18 125/42 (69) 94 11/13/19 04:00 89 11/13/19 01:32 99.8 11/13/19 01:23 99.8 11/13/19 00:00 102 11/13/19 00:00 100.7 103 18 127/59 (81) 95 11/12/19 22:01 139/49 11/12/19 21:00 Room Air 11/12/19 20:00 99.9 97 19 139/49 (79) 97 11/12/19 20:00 97 11/12/19 17:00 94 119/42 (67) 11/12/19 17:00 95 136/61 (86) 11/12/19 16:00 91 11/12/19 16:00 98.8 91 32 115/50 (71) 99 11/12/19 16:00 92 92/45 (61) 11/12/19 13:39 111/52 11/12/19 12:00 99.0 103 21 111/52 (71) 98 11/12/19 12:00 89 11/12/19 08:21 Room Air 11/12/19 08:00 82 11/12/19 08:00 98.7 101 22 108/49 (68) 97 Intake and Output 11/13/19 11/14/19 19:00 07:00 Intake Total 992.5 ml 525 ml Output Total 450 ml 400 ml Balance 542.5 ml 125 ml IV Total 992.5 ml 525 ml Output Urine Total 450 ml 400 ml # Voids 2 1 Labs Test 11/12/19 07:45 11/13/19 06:30 11/13/19 07:08 White Blood Count 5.3 K/UL (4.8-10.8) 5.5 K/UL (4.8-10.8) Red Blood Count 2.98 M/UL (4.70-6.10) 2.73 M/UL (4.70-6.10) Hemoglobin 8.3 G/DL (14.2-18.0) 7.7 G/DL (14.2-18.0) Hematocrit 25.1 % (42.0-52.0) 23.1 % (42.0-52.0) Mean Corpuscular Volume 84 FL (80-99) 85 FL (80-99) Mean Corpuscular Hemoglobin 27.9 PG (27.0-31.0) 28.2 PG (27.0-31.0) Mean Corpuscular Hemoglobin Concent 33.2 G/DL (32.0-36.0) 33.4 G/DL (32.0-36.0) Red Cell Distribution Width 12.1 % (11.6-14.8) 12.0 % (11.6-14.8) Platelet Count 140 K/UL (150-450) 139 K/UL (150-450) Mean Platelet Volume 7.3 FL (6.5-10.1) 7.4 FL (6.5-10.1) Neutrophils (%) (Auto) 69.0 % (45.0-75.0) % (45.0-75.0) Lymphocytes (%) (Auto) 16.8 % (20.0-45.0) % (20.0-45.0) Monocytes (%) (Auto) 13.8 % (1.0-10.0) % (1.0-10.0) Eosinophils (%) (Auto) 0.1 % (0.0-3.0) % (0.0-3.0) Basophils (%) (Auto) 0.3 % (0.0-2.0) % (0.0-2.0) Sodium Level 139 MMOL/L (136-145) 139 MMOL/L (136-145) Potassium Level 3.8 MMOL/L (3.5-5.1) 3.8 MMOL/L (3.5-5.1) Chloride Level 106 MMOL/L (98-107) 105 MMOL/L (98-107) Carbon Dioxide Level 24 MMOL/L (21-32) 22 MMOL/L (21-32) Anion Gap 9 mmol/L (5-15) 12 mmol/L (5-15) Blood Urea Nitrogen 26 mg/dL (7-18) 36 mg/dL (7-18) Creatinine 2.9 MG/DL (0.55-1.30) 3.3 MG/DL (0.55-1.30) Estimat Glomerular Filtration Rate 25.0 mL/min (>60) 21.5 mL/min (>60) Glucose Level 189 MG/DL (74-106) 141 MG/DL (74-106) Uric Acid 5.0 MG/DL (2.6-7.2) Calcium Level 7.8 MG/DL (8.5-10.1) 7.9 MG/DL (8.5-10.1) Phosphorus Level 3.9 MG/DL (2.5-4.9) 4.2 MG/DL (2.5-4.9) Total Bilirubin 0.4 MG/DL (0.2-1.0) 0.4 MG/DL (0.2-1.0) Aspartate Amino Transf (AST/SGOT) 23 U/L (15-37) 29 U/L (15-37) Alanine Aminotransferase (ALT/SGPT) 17 U/L (12-78) 16 U/L (12-78) Alkaline Phosphatase 49 U/L (46-116) 43 U/L (46-116) C-Reactive Protein, Quantitative 6.3 mg/dL (0.00-0.90) 12.9 mg/dL (0.00-0.90) Total Protein 6.3 G/DL (6.4-8.2) 6.6 G/DL (6.4-8.2) Albumin 2.5 G/DL (3.4-5.0) 2.8 G/DL (3.4-5.0) Globulin 3.8 g/dL 3.8 g/dL Albumin/Globulin Ratio 0.7 (1.0-2.7) 0.7 (1.0-2.7) Urine Eosinophils None seen (NONE SEEN) Differential Total Cells Counted 100 Neutrophils % (Manual) 73 % (45-75) Lymphocytes % (Manual) 12 % (20-45) Monocytes % (Manual) 15 % (1-10) Eosinophils % (Manual) 0 % (0-3) Basophils % (Manual) 0 % (0-2) Band Neutrophils 0 % (0-8) Platelet Estimate Decreased Platelet Morphology Normal Hypochromasia 3+ Anisocytosis 1+ Spherocytes 1+ Magnesium Level 1.8 MG/DL (1.8-2.4) Pro-B-Type Natriuretic Peptide 1653 pg/mL (0-125) Height (Feet): 5 Height (Inches): 10.00 Weight (Pounds): 196 Objective vitals: noted ENT: dry mucus membranes Neck: limited range of motion Respiratory: decreased breath sounds nrm+++ Cardiovascular: normal peripheral pulses, rrr Gastrointestinal: normal bowel sounds, soft, tenderness - suprapubic Musculoskeletal: decreased range of motion Neurologic: normal inspection, alert, responsive Psychiatric: normal inspection Skin: normal inspection, normal color Cesar Singh MD November 14, 2019 06:54
--- NOTE | 2019-11-14 07:10 | NUR ---
NURSE NOTES: Report received from Rodney Hendrickson RN.Pt resting in bed asleep noted no resp distress on NRB mask 15 L,no signs of pain or discomfort SR on the monitor,condom cath pulled out by pt,skin warm and dry with IVF 1/2 NS at 75 ml/hr ,SR up x2 HOB elevated,bed lock in lowest position,will continue with plan of care.
[2019-11-14 08:00] VITALS: BP 169/94
--- NOTE | 2019-11-14 08:30 | NUR ---
NURSE NOTES: Pt refusing to eat ,encouraged pt to chew and swallow food but unable to follow command.
--- NOTE | 2019-11-14 09:10 | NUR ---
RD ASSESSMENT & RECOMMENDATIONS SEE CARE ACTIVITY FOR COMPLETE ASSESSMENT DAILY ESTIMATED NEEDS: Needs based on DM, renal 78.8 abw 25-30 kcals/kg [id number] total kcals 1-1.2 g protein/kg 79-95 g total protein Fluid per MD NUTRITION DIAGNOSIS: Decreased sodium needs r/t renal dysfunction and cardiac history as evidenced by worsening renal failure per MD, creat now 3.3, pt w/ elev BP as well (169/94). (CURRENT DIET: CCHO MED Soft easy chew) PO DIET RECOMMENDATIONS: CCHO MED/ LOW NA, texture as tolerated ADDITIONAL RECOMMENDATIONS: 1) With current fair intake add Glucerna 1 tetra BID Add snacks as tolerated 2) Monitor lytes w/ renal function 3) Maintain calibrated bed scale wts
[2019-11-14 09:13] LABS: HEMATOCRIT 25.6 % (42.0-52.0); HEMOGLOBIN 8.6 G/DL (14.2-18.0); MEAN CORPUSCULAR VOLUME 86 FL (80-99); PLATELET COUNT 158 K/UL (150-450); RED BLOOD COUNT 2.98 M/UL (4.70-6.10); RED CELL DISTRIBUTION WIDTH 12.5 % (11.6-14.8); WHITE BLOOD COUNT 9.2 K/UL (4.8-10.8)
[2019-11-14 09:43] LABS: ALANINE AMINOTRANSFERASE 26 U/L (12-78); ALBUMIN 2.9 G/DL (3.4-5.0); ALBUMIN/GLOBULIN RATIO 0.7 (1.0-2.7); ALKALINE PHOSPHATASE 50 U/L (46-116); ANION GAP 14 mmol/L (5-15); ASPARTATE AMINO TRANSFERASE 44 U/L (15-37); BILIRUBIN,TOTAL 0.4 MG/DL (0.2-1.0); BLOOD UREA NITROGEN 37 mg/dL (7-18); CALCIUM 7.7 MG/DL (8.5-10.1); CARBON DIOXIDE 20 MMOL/L (21-32); CHLORIDE 107 MMOL/L (98-107); CREATININE 3.1 MG/DL (0.55-1.30); PHOSPHORUS 4.3 MG/DL (2.5-4.9); POTASSIUM 4.1 MMOL/L (3.5-5.1); SODIUM 141 MMOL/L (136-145)
[2019-11-14] MEDS ORDERED: Acetaminophen 500mg (ES) tab ORAL PRN (09:45)
[2019-11-14] MEDS: Docusate 100mg cap ORAL SCH ×3 (09:57→18:34)
[2019-11-14] MEDS: Aspirin EC 81mg tab ORAL SCH (09:58)
[2019-11-14] MEDS: Bethanechol 25mg Tab ORAL SCH ×3 (09:59→18:34)
[2019-11-14] MEDS: Tamsulosin 0.4mg cap ORAL SCH ×2 (09:59→18:34)
--- NOTE | 2019-11-14 10:19 | Infectious Diseases Prog Note ---
Assessment/Plan Assessment/Plan IMPRESSION: E. coli UTI COVID19 pneumonia worsening diabetes mellitus, hypertension, anemia, Right eye glaucoma. Acute renal failure RECOMMENDATION: Continue ceftriaxone. Family agree with Hydroxychloroquine if symptoms are worse Will f/u COVID19 test Subjective ROS Limited/Unobtainable: Yes Constitutional: Reports: fever, other - transferred from telemetry to [facility] Allergies: Coded Allergies: No Known Allergies (Unverified , 05/27/15) Objective Vital Signs Last 24 Hour Vital Signs Date Time Temp Pulse Resp B/P (MAP) Pulse Ox O2 Delivery O2 Flow Rate FiO2 11/14/19 09:59 89 169/94 11/14/19 08:00 97.9 89 24 169/94 (119) 100 11/14/19 06:03 99.1 11/14/19 05:32 168/74 11/14/19 04:00 108 11/14/19 04:00 97.6 107 24 173/90 (117) 100 11/14/19 00:00 99.8 89 19 160/65 (96) 100 11/14/19 00:00 81 11/13/19 22:40 100.8 87 20 166/70 (102) 100 11/13/19 22:00 162/60 11/13/19 21:25 99.5 11/13/19 21:00 Non-Rebreather 15.0 11/13/19 20:00 93 11/13/19 20:00 101.3 91 19 158/60 (92) 95 11/13/19 16:00 99.1 83 20 162/75 (104) 98 11/13/19 16:00 87 11/13/19 13:56 150/52 11/13/19 12:00 99.1 83 20 150/52 (84) 100 11/13/19 12:00 81 Height (Feet): 5 Height (Inches): 10.00 Weight (Pounds): 196 HEENT: mucous membranes moist Cardiovascular: normal rate Abdomen: soft, non tender Neurologic/Psychiatric: alert, responsive Laboratory Tests Test 11/14/19 08:50 White Blood Count 9.2 K/UL (4.8-10.8) # Red Blood Count 2.98 M/UL (4.70-6.10) L Hemoglobin 8.6 G/DL (14.2-18.0) L Hematocrit 25.6 % (42.0-52.0) L Mean Corpuscular Volume 86 FL (80-99) Mean Corpuscular Hemoglobin 28.8 PG (27.0-31.0) Mean Corpuscular Hemoglobin Concent 33.5 G/DL (32.0-36.0) Red Cell Distribution Width 12.5 % (11.6-14.8) Platelet Count 158 K/UL (150-450) Mean Platelet Volume 6.9 FL (6.5-10.1) Neutrophils (%) (Auto) % (45.0-75.0) Lymphocytes (%) (Auto) % (20.0-45.0) Monocytes (%) (Auto) % (1.0-10.0) Eosinophils (%) (Auto) % (0.0-3.0) Basophils (%) (Auto) % (0.0-2.0) Differential Total Cells Counted 100 Neutrophils % (Manual) 87 % (45-75) H Lymphocytes % (Manual) 6 % (20-45) L Monocytes % (Manual) 7 % (1-10) Eosinophils % (Manual) 0 % (0-3) Basophils % (Manual) 0 % (0-2) Band Neutrophils 0 % (0-8) Platelet Estimate Adequate Platelet Morphology Normal Sodium Level 141 MMOL/L (136-145) Potassium Level 4.1 MMOL/L (3.5-5.1) Chloride Level 107 MMOL/L (98-107) Carbon Dioxide Level 20 MMOL/L (21-32) L Anion Gap 14 mmol/L (5-15) Blood Urea Nitrogen 37 mg/dL (7-18) H Creatinine 3.1 MG/DL (0.55-1.30) H Estimat Glomerular Filtration Rate 23.1 mL/min (>60) Glucose Level 196 MG/DL (74-106) H Uric Acid 6.4 MG/DL (2.6-7.2) Calcium Level 7.7 MG/DL (8.5-10.1) L Phosphorus Level 4.3 MG/DL (2.5-4.9) Magnesium Level 1.9 MG/DL (1.8-2.4) Total Bilirubin 0.4 MG/DL (0.2-1.0) Aspartate Amino Transf (AST/SGOT) 44 U/L (15-37) H Alanine Aminotransferase (ALT/SGPT) 26 U/L (12-78) Alkaline Phosphatase 50 U/L (46-116) C-Reactive Protein, Quantitative 19.9 mg/dL (0.00-0.90) H Pro-B-Type Natriuretic Peptide 3420 pg/mL (0-125) H Total Protein 7.1 G/DL (6.4-8.2) Albumin 2.9 G/DL (3.4-5.0) L Globulin 4.2 g/dL Albumin/Globulin Ratio 0.7 (1.0-2.7) L Current Medications Medications (Trade) Dose Ordered Sig/Mayank Route PRN Reason Start Time Stop Time Status Last Admin Dose Admin Acetaminophen (Tylenol) 500 mg Q4H PRN ORAL Mild Pain/Temp >100.5 11/14/19 09:45 12/08/19 21:44 Acetaminophen (Tylenol) 650 mg Q4H PRN RECTAL Mild Pain (Pain Scale 1-3) 11/14/19 07:45 12/13/19 19:44 Aspirin (Ecotrin) 81 mg DAILY ORAL 11/14/19 09:00 12/27/19 08:59 11/14/19 09:58 Atorvastatin Calcium (Lipitor) 20 mg BEDTIME ORAL 11/14/19 21:00 02/10/20 20:59 Bethanechol Chloride (Urecholine) 25 mg THREE TIMES A DAY ORAL 11/14/19 09:00 12/09/19 08:59 11/14/19 09:59 Ceftriaxone Sodium 1 gm/ Dextrose 55 ml @ 110 mls/hr Q24H IVPB 11/14/19 14:00 11/16/19 13:59 Clonidine HCl (Catapres Tab) 0.1 mg Q4H PRN ORAL For High Blood Pressure 11/14/19 07:15 02/09/20 15:11 Dextrose (Dextrose 50%) 25 ml Q30M PRN IV Hypoglycemia 11/14/19 07:15 02/06/20 21:44 Dextrose (Dextrose 50%) 50 ml Q30M PRN IV Hypoglycemia 11/14/19 07:15 02/06/20 21:44 Docusate Sodium (Colace) 100 mg THREE TIMES A DAY ORAL 11/14/19 09:00 12/09/19 17:59 11/14/19 09:57 Epoetin Mohit (Epoetin Mohit-EPBX(NON ESRD)) 6,000 unit SUN-SUN-SUN SUBQ 11/14/19 21:00 02/08/20 20:59 Finasteride (Proscar) 5 mg DAILY ORAL 11/14/19 09:00 02/07/20 08:59 11/14/19 09:58 Hydralazine HCl (Apresoline) 50 mg Q8HR ORAL 11/14/19 14:00 02/07/20 13:59 Insulin Aspart (NovoLOG) BEFORE MEALS AND HS SUBQ 11/14/19 11:30 02/07/20 22:59 Insulin Detemir (Levemir) 14 units Q24H SUBQ 11/14/19 09:00 02/07/20 08:59 Mirtazapine (Remeron) 7.5 mg BEDTIME ORAL 11/14/19 21:00 02/06/20 22:59 Nateglinide (Starlix) 120 mg THREE TIMES A DAY ORAL 11/14/19 09:00 12/09/19 08:59 11/14/19 09:58 Nifedipine (Procardia XL) 30 mg DAILY ORAL 11/14/19 09:00 12/10/19 17:59 11/14/19 09:59 Pantoprazole (Protonix) 40 mg BID ORAL 11/14/19 09:00 12/09/19 08:59 11/14/19 09:58 Sodium Chloride 1,000 ml @ 75 mls/hr [id number] IV 11/14/19 08:00 12/09/19 07:59 11/14/19 09:57 Tamsulosin HCl (Flomax) 0.4 mg BID ORAL 11/14/19 09:00 12/09/19 20:59 11/14/19 09:59 Viktor Miranda MD November 14, 2019 10:19
--- NOTE | 2019-11-14 11:31 | Pulmonology Progress Note ---
Assessment/Plan Assessment/Plan IMPRESSION: 1. Fever. Resolved 2. Positive COVID-19 pneumonia. 3. Multiple medical problems. 4. worsening oxygenation 5. Worsening renal failure DISCUSSION: Continue current medications and care. Broad spectrum antibiotics. 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 Has positive COVID-19. Worsening oxygenation CXR fairly clear Bill Westfall M.D. Subjective ROS Limited/Unobtainable: Yes Interval Events: Doing poorly; now on NRBM Constitutional: Reports: fever, other - transferred from telemetry to [facility] HEENT: Repors: no symptoms Respiratory: Reports: shortness of breath Cardiovascular: Reports: no symptoms Gastrointestinal/Abdominal: Reports: no symptoms Genitourinary: Reports: no symptoms Allergies: Coded Allergies: No Known Allergies (Unverified , 05/27/15) Objective Last 24 Hour Vital Signs Date Time Temp Pulse Resp B/P (MAP) Pulse Ox O2 Delivery O2 Flow Rate FiO2 11/14/19 09:59 89 169/94 11/14/19 09:00 Non-Rebreather 15.0 11/14/19 08:00 97.9 89 24 169/94 (119) 100 11/14/19 08:00 92 11/14/19 06:03 99.1 11/14/19 05:32 168/74 11/14/19 04:00 108 11/14/19 04:00 97.6 107 24 173/90 (117) 100 11/14/19 00:00 99.8 89 19 160/65 (96) 100 11/14/19 00:00 81 11/13/19 22:40 100.8 87 20 166/70 (102) 100 11/13/19 22:00 162/60 11/13/19 21:25 99.5 11/13/19 21:00 Non-Rebreather 15.0 11/13/19 20:00 93 11/13/19 20:00 101.3 91 19 158/60 (92) 95 11/13/19 16:00 99.1 83 20 162/75 (104) 98 11/13/19 16:00 87 11/13/19 13:56 150/52 11/13/19 12:00 99.1 83 20 150/52 (84) 100 11/13/19 12:00 81 Intake and Output 11/13/19 11/14/19 19:00 07:00 Intake Total 992.5 ml 525 ml Output Total 450 ml 400 ml Balance 542.5 ml 125 ml IV Total 992.5 ml 525 ml Output Urine Total 450 ml 400 ml # Voids 2 1 General Appearance: no acute distress HEENT: mucous membranes moist Respiratory/Chest: chest wall non-tender, lungs clear Cardiovascular: normal peripheral pulses Abdomen: soft, non tender Extremities: no edema Neurologic/Psychiatric: alert, responsive Laboratory Tests 11/14/19 08:50: White Blood Count 9.2#, Red Blood Count 2.98L, Hemoglobin 8.6L, Hematocrit 25.6L , Mean Corpuscular Volume 86, Mean Corpuscular Hemoglobin 28.8, Mean Corpuscular Hemoglobin Concent 33.5, Red Cell Distribution Width 12.5, Platelet Count 158, Mean Platelet Volume 6.9, Neutrophils (%) (Auto) , Lymphocytes (%) ( Auto) , Monocytes (%) (Auto) , Eosinophils (%) (Auto) , Basophils (%) (Auto) , Differential Total Cells Counted 100, Neutrophils % (Manual) 87H, Lymphocytes % (Manual) 6L, Monocytes % (Manual) 7, Eosinophils % (Manual) 0, Basophils % ( Manual) 0, Band Neutrophils 0, Platelet Estimate Adequate, Platelet Morphology Normal, Sodium Level 141, Potassium Level 4.1, Chloride Level 107, Carbon Dioxide Level 20L, Anion Gap 14, Blood Urea Nitrogen 37H, Creatinine 3.1H, Estimat Glomerular Filtration Rate 23.1, Glucose Level 196H, Uric Acid 6.4, Calcium Level 7.7L, Phosphorus Level 4.3, Magnesium Level 1.9, Total Bilirubin 0.4, Aspartate Amino Transf (AST/SGOT) 44H, Alanine Aminotransferase (ALT/SGPT) 26, Alkaline Phosphatase 50, C-Reactive Protein, Quantitative 19.9H, Pro-B-Type Natriuretic Peptide 3420H, Total Protein 7.1, Albumin 2.9L, Globulin 4.2, Albumin/Globulin Ratio 0.7L Current Medications Medications (Trade) Dose Ordered Sig/Mayank Route PRN Reason Start Time Stop Time Status Last Admin Dose Admin Acetaminophen (Tylenol) 500 mg Q4H PRN ORAL Mild Pain/Temp >100.5 11/14/19 09:45 12/08/19 21:44 Acetaminophen (Tylenol) 650 mg Q4H PRN RECTAL Mild Pain (Pain Scale 1-3) 11/14/19 07:45 12/13/19 19:44 Aspirin (Ecotrin) 81 mg DAILY ORAL 11/14/19 09:00 12/27/19 08:59 11/14/19 09:58 Atorvastatin Calcium (Lipitor) 20 mg BEDTIME ORAL 11/14/19 21:00 02/10/20 20:59 Bethanechol Chloride (Urecholine) 25 mg THREE TIMES A DAY ORAL 11/14/19 09:00 12/09/19 08:59 11/14/19 09:59 Ceftriaxone Sodium 1 gm/ Dextrose 55 ml @ 110 mls/hr Q24H IVPB 11/14/19 14:00 11/16/19 13:59 Clonidine HCl (Catapres Tab) 0.1 mg Q4H PRN ORAL For High Blood Pressure 11/14/19 07:15 02/09/20 15:11 Dextrose (Dextrose 50%) 25 ml Q30M PRN IV Hypoglycemia 11/14/19 07:15 02/06/20 21:44 Dextrose (Dextrose 50%) 50 ml Q30M PRN IV Hypoglycemia 11/14/19 07:15 02/06/20 21:44 Docusate Sodium (Colace) 100 mg THREE TIMES A DAY ORAL 11/14/19 09:00 12/09/19 17:59 11/14/19 09:57 Epoetin Mohit (Epoetin Mohit-EPBX(NON ESRD)) 6,000 unit SUN-SUN-SUN SUBQ 11/14/19 21:00 02/08/20 20:59 Finasteride (Proscar) 5 mg DAILY ORAL 11/14/19 09:00 02/07/20 08:59 11/14/19 09:58 Hydralazine HCl (Apresoline) 50 mg Q8HR ORAL 11/14/19 14:00 02/07/20 13:59 Insulin Aspart (NovoLOG) BEFORE MEALS AND HS SUBQ 11/14/19 11:30 02/07/20 22:59 Insulin Detemir (Levemir) 14 units Q24H SUBQ 11/14/19 09:00 02/07/20 08:59 Mirtazapine (Remeron) 7.5 mg BEDTIME ORAL 11/14/19 21:00 02/06/20 22:59 Nateglinide (Starlix) 120 mg THREE TIMES A DAY ORAL 11/14/19 09:00 12/09/19 08:59 11/14/19 09:58 Nifedipine (Procardia XL) 30 mg DAILY ORAL 11/14/19 09:00 12/10/19 17:59 11/14/19 09:59 Pantoprazole (Protonix) 40 mg BID ORAL 11/14/19 09:00 12/09/19 08:59 11/14/19 09:58 Sodium Chloride 1,000 ml @ 75 mls/hr [id number] IV 11/14/19 08:00 12/09/19 07:59 11/14/19 09:57 Tamsulosin HCl (Flomax) 0.4 mg BID ORAL 11/14/19 09:00 12/09/19 20:59 11/14/19 09:59 Bill Westfall MD November 14, 2019 11:31
--- NOTE | 2019-11-14 11:42 | NUR ---
CASE MANAGEMENT:REVIEW 11/14/2019 SI: POSITIVE COVID 19 PNEUMONIA E COLI UTI. ACUTE RENAL FAILURE T: 97.9 HR 92 RR 24 B/P 169/94 SATS 100% ON 15L/NRB CO2 20 BUN 37 CR 3.1 GLU 196 CA 7.7 AST 44 CRP 19.9 BNP 3420 IS: IV ROCEPHIN Q24HRS IVF@75/HR LIPITOR PO QHS ASA PO QD MINOXIDIL PO Q12 EPOETIN SQ MWF PROCARDIA XL PO BID LEVEMIR SQ Q24 FLOMAX PO BID URECHOLINE PO TID STARLIX PO TID PROSCAR PO QD PROTONIX PO BID REMERON PO QHS : SDU STATUS DCP: FROM [facility]
[2019-11-14 12:00] VITALS: BP 163/71
--- NOTE | 2019-11-14 12:00 | NUR ---
NURSE NOTES: Pt unable to follow command to swallow food,will need a swallow eval.
[2019-11-14] MEDS: Levemir Flexpen SUBQ SCH (13:07)
--- NOTE | 2019-11-14 13:21 | Nephrology Progress Note ---
Assessment/Plan Problem List: (1) Acute on chronic renal failure Assessment: Serum creatinine rising (2) BPH (benign prostatic hyperplasia) (3) Anemia (4) Sepsis (5) COVID-19 virus detected Assessment Mr. Melton is admitted with pneumonia and UTI and exposure to COVID-19 virus, and the test is positive From renal standpoint of view: Acute on chronic renal failure: Serum creatinine has risen from baseline of 1.6- 2.5 Diabetic nephropathy BPH Anemia Hypertension Plan Positive for COVID-19 Serum creatinine pito , but seems to be stabilizing Kidney ultrasound results noted adjust blood pressure medication as the blood pressure has been fluctuating Slow hydration and 1 bolus of albumin Kidney ultrasound results noted Monitor renal parameters Avoid nephrotoxic's Flomax twice daily Antibiotics per ID Will review the 2D echocardiogram and ultrasound which was done previously Per orders Subjective ROS Limited/Unobtainable: No Constitutional: Reports: malaise Objective Objective Last 24 Hour Vital Signs Date Time Temp Pulse Resp B/P (MAP) Pulse Ox O2 Delivery O2 Flow Rate FiO2 11/14/19 12:00 98.1 80 24 163/71 (101) 100 11/14/19 09:59 89 169/94 11/14/19 09:00 Non-Rebreather 15.0 11/14/19 08:00 97.9 89 24 169/94 (119) 100 11/14/19 08:00 92 11/14/19 06:03 99.1 11/14/19 05:32 168/74 11/14/19 04:00 108 11/14/19 04:00 97.6 107 24 173/90 (117) 100 11/14/19 00:00 99.8 89 19 160/65 (96) 100 11/14/19 00:00 81 11/13/19 22:40 100.8 87 20 166/70 (102) 100 11/13/19 22:00 162/60 11/13/19 21:25 99.5 11/13/19 21:00 Non-Rebreather 15.0 11/13/19 20:00 93 11/13/19 20:00 101.3 91 19 158/60 (92) 95 11/13/19 16:00 99.1 83 20 162/75 (104) 98 11/13/19 16:00 87 11/13/19 13:56 150/52 Intake and Output 11/13/19 11/14/19 19:00 07:00 Intake Total 992.5 ml 525 ml Output Total 450 ml 400 ml Balance 542.5 ml 125 ml IV Total 992.5 ml 525 ml Output Urine Total 450 ml 400 ml # Voids 2 1 Laboratory Tests 11/14/19 08:50: White Blood Count 9.2#, Red Blood Count 2.98L, Hemoglobin 8.6L, Hematocrit 25.6L , Mean Corpuscular Volume 86, Mean Corpuscular Hemoglobin 28.8, Mean Corpuscular Hemoglobin Concent 33.5, Red Cell Distribution Width 12.5, Platelet Count 158, Mean Platelet Volume 6.9, Neutrophils (%) (Auto) , Lymphocytes (%) ( Auto) , Monocytes (%) (Auto) , Eosinophils (%) (Auto) , Basophils (%) (Auto) , Differential Total Cells Counted 100, Neutrophils % (Manual) 87H, Lymphocytes % (Manual) 6L, Monocytes % (Manual) 7, Eosinophils % (Manual) 0, Basophils % ( Manual) 0, Band Neutrophils 0, Platelet Estimate Adequate, Platelet Morphology Normal, Sodium Level 141, Potassium Level 4.1, Chloride Level 107, Carbon Dioxide Level 20L, Anion Gap 14, Blood Urea Nitrogen 37H, Creatinine 3.1H, Estimat Glomerular Filtration Rate 23.1, Glucose Level 196H, Uric Acid 6.4, Calcium Level 7.7L, Phosphorus Level 4.3, Magnesium Level 1.9, Total Bilirubin 0.4, Aspartate Amino Transf (AST/SGOT) 44H, Alanine Aminotransferase (ALT/SGPT) 26, Alkaline Phosphatase 50, C-Reactive Protein, Quantitative 19.9H, Pro-B-Type Natriuretic Peptide 3420H, Total Protein 7.1, Albumin 2.9L, Globulin 4.2, Albumin/Globulin Ratio 0.7L Height (Feet): 5 Height (Inches): 10.00 Weight (Pounds): 196 General Appearance: no apparent distress, lethargic Cardiovascular: normal rate Respiratory/Chest: decreased breath sounds Abdomen: distended Objective No change Rodrigue Mackenzie MD November 14, 2019 13:21
[2019-11-14] MEDS: cefTRIAXone 1 GM in D5W 55 ML IVPB SCH (14:16)
[2019-11-14 16:00] VITALS: BP 170/76
--- NOTE | 2019-11-14 16:39 | General Progress Note ---
Assessment/Plan Problem List: (1) Sepsis ICD Codes: A41.9 - Sepsis, unspecified organism SNOMED: 23982594 (2) Diabetes ICD Codes: E11.9 - Type 2 diabetes mellitus without complications SNOMED: 77020627 (3) BPH (benign prostatic hyperplasia) ICD Codes: N40.0 - Benign prostatic hyperplasia without lower urinary tract symptoms SNOMED: 578136799 (4) Anemia ICD Codes: D64.9 - Anemia, unspecified SNOMED: 734223291 (5) Acute on chronic renal failure ICD Codes: N17.9 - Acute kidney failure, unspecified; N18.9 - Chronic kidney disease, unspecified SNOMED: 883296351 (6) Fever ICD Codes: R50.9 - Fever, unspecified SNOMED: 816586013 Qualifiers: Qualified Codes: R50.9 - Fever, unspecified (7) Suspected COVID-19 virus infection ICD Codes: Z20.828 - Contact with and (suspected) exposure to other viral communicable diseases SNOMED: 633383294 (8) UTI (urinary tract infection) ICD Codes: N39.0 - Urinary tract infection, site not specified SNOMED: 79180020 Qualifiers: Qualified Codes: N39.0 - Urinary tract infection, site not specified (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 SNOMED: 80175213, 131342803 (10) Hypertension ICD Codes: I10 - Essential (primary) hypertension SNOMED: 18870785 Status: progressing Assessment/Plan: persistent fever on abx worsening renal failure poor prognosis more lethargic encephalopathy uti pna hs intermittent fever is covid positive pna Subjective ROS Limited/Unobtainable: Yes Allergies: Coded Allergies: No Known Allergies (Unverified , 05/27/15) Objective Last 24 Hour Vital Signs Date Time Temp Pulse Resp B/P (MAP) Pulse Ox O2 Delivery O2 Flow Rate FiO2 11/14/19 16:00 98.2 91 24 170/76 (107) 100 11/14/19 14:16 163/71 11/14/19 12:00 98.1 80 24 163/71 (101) 100 11/14/19 11:46 90 11/14/19 09:59 89 169/94 11/14/19 09:00 Non-Rebreather 15.0 11/14/19 08:00 97.9 89 24 169/94 (119) 100 11/14/19 08:00 92 11/14/19 06:03 99.1 11/14/19 05:32 168/74 11/14/19 04:00 108 11/14/19 04:00 97.6 107 24 173/90 (117) 100 11/14/19 00:00 99.8 89 19 160/65 (96) 100 11/14/19 00:00 81 11/13/19 22:40 100.8 87 20 166/70 (102) 100 11/13/19 22:00 162/60 11/13/19 21:25 99.5 11/13/19 21:00 Non-Rebreather 15.0 11/13/19 20:00 93 11/13/19 20:00 101.3 91 19 158/60 (92) 95 Intake and Output 11/13/19 11/14/19 19:00 07:00 Intake Total 992.5 ml 525 ml Output Total 450 ml 400 ml Balance 542.5 ml 125 ml IV Total 992.5 ml 525 ml Output Urine Total 450 ml 400 ml # Voids 2 1 Laboratory Tests 11/14/19 08:50: White Blood Count 9.2#, Red Blood Count 2.98L, Hemoglobin 8.6L, Hematocrit 25.6L , Mean Corpuscular Volume 86, Mean Corpuscular Hemoglobin 28.8, Mean Corpuscular Hemoglobin Concent 33.5, Red Cell Distribution Width 12.5, Platelet Count 158, Mean Platelet Volume 6.9, Neutrophils (%) (Auto) , Lymphocytes (%) ( Auto) , Monocytes (%) (Auto) , Eosinophils (%) (Auto) , Basophils (%) (Auto) , Differential Total Cells Counted 100, Neutrophils % (Manual) 87H, Lymphocytes % (Manual) 6L, Monocytes % (Manual) 7, Eosinophils % (Manual) 0, Basophils % ( Manual) 0, Band Neutrophils 0, Platelet Estimate Adequate, Platelet Morphology Normal, Sodium Level 141, Potassium Level 4.1, Chloride Level 107, Carbon Dioxide Level 20L, Anion Gap 14, Blood Urea Nitrogen 37H, Creatinine 3.1H, Estimat Glomerular Filtration Rate 23.1, Glucose Level 196H, Uric Acid 6.4, Calcium Level 7.7L, Phosphorus Level 4.3, Magnesium Level 1.9, Total Bilirubin 0.4, Aspartate Amino Transf (AST/SGOT) 44H, Alanine Aminotransferase (ALT/SGPT) 26, Alkaline Phosphatase 50, C-Reactive Protein, Quantitative 19.9H, Pro-B-Type Natriuretic Peptide 3420H, Total Protein 7.1, Albumin 2.9L, Globulin 4.2, Albumin/Globulin Ratio 0.7L Height (Feet): 5 Height (Inches): 10.00 Weight (Pounds): 196 Aliyah Miller MD November 14, 2019 16:39
--- NOTE | 2019-11-14 17:00 | NUR ---
NURSE NOTES: Pt stable,no resp distress presented during the shift,continue on 100% non rebreather mask.
[2019-11-14] MEDS ORDERED: 1/2 NS 1000ml IV ONE ×2 (17:11→17:23)
[2019-11-14] MEDS ORDERED: Tubing Blood Filter IV ONE (17:11)
[2019-11-14] MEDS ORDERED: NS 275ml ONE (17:11)
--- NOTE | 2019-11-14 19:37 | NUR ---
NURSE NOTES: Left a message with Dr. Miller to order a swallow evaluation and D5 1/2 NS until swallow evaluation can be established. Waiting for call back.
--- NOTE | 2019-11-14 19:40 | NUR ---
HAND-OFF: Report given to Rodney Hendrickson RN.
--- NOTE | 2019-11-14 19:41 | NUR ---
NURSE NOTES: NURSE NOTES: Received patient from BENOIT Olsen. Patient is aaox 2, confused, on campus monitor, with no acute distress and clean. Patient is cooperative, clean on non rebreather saturating at 100%. Skin issues noted with left wrist 20g and right wrist 20g IV patent with no sign os infection. Patient is in bed watching TV, bed at its lowest position, call light in reach, bed alarm on and bed is locked. Will continue to monitor.
[2019-11-14 19:59] VITALS: BP 132/67
--- NOTE | 2019-11-14 22:00 | NUR ---
NURSE NOTES: Left a message for Dr. Miller regarding patients difficulty eating and coughing during eating. Dr. Miller called back and ordered ST eval as well as an MD consult with Dr. Phipps for GI. Per Dr. Miller instructions follow the recommendations of the ST eval. MD also ordered 1/2 NS at 50mL/hr.
[2019-11-14] MEDS: Atorvastatin 20mg tab ORAL SCH (22:07)
[2019-11-14] MEDS: Epoetin Alfa-EPBX (NON ESRD) 3000 units/ml vial SUBQ SCH (22:30)
--- NOTE | 2019-11-14 23:58 | Cardiology Progress Note ---
Assessment/Plan Assessment/Plan 1. Elevated troponin I level in this patient likely acute HFpEF in view of CKD, HTN and age. Continue ASA and statins. 2. Severe with HERMINIO at 0.8 cm2. Avoid potent diuretics. 3. DM, continue ASA and statins. 4. Hypertension secondary renal parenchymal disease, well controlled, continue hydralazine and nifedipine, off minoxidil due to hypotension. 5. CKD. 6. COVID-19 pneumonia on Ceftriaxone, ID follow-up. Subjective Subjective Sinus rhythm at rate of 87. Objective Last 24 Hour Vital Signs Date Time Temp Pulse Resp B/P (MAP) Pulse Ox O2 Delivery O2 Flow Rate FiO2 11/14/19 22:07 132/67 11/14/19 21:00 Non-Rebreather 15.0 11/14/19 19:59 98.8 99 23 132/67 (88) 100 11/14/19 18:34 86 170/76 11/14/19 16:00 86 11/14/19 16:00 98.2 91 24 170/76 (107) 100 11/14/19 14:16 163/71 11/14/19 12:00 98.1 80 24 163/71 (101) 100 11/14/19 11:46 90 11/14/19 09:59 89 169/94 11/14/19 09:00 Non-Rebreather 15.0 11/14/19 08:00 97.9 89 24 169/94 (119) 100 11/14/19 08:00 92 11/14/19 06:03 99.1 11/14/19 05:32 168/74 11/14/19 04:00 108 11/14/19 04:00 97.6 107 24 173/90 (117) 100 11/14/19 00:00 99.8 89 19 160/65 (96) 100 11/14/19 00:00 81 Intake and Output 11/13/19 11/14/19 19:00 07:00 Intake Total 992.5 ml 600 ml Output Total 450 ml 400 ml Balance 542.5 ml 200 ml IV Total 992.5 ml 600 ml Output Urine Total 450 ml 400 ml # Voids 2 1 Laboratory Tests Test 11/14/19 08:50 White Blood Count 9.2 K/UL (4.8-10.8) # Red Blood Count 2.98 M/UL (4.70-6.10) L Hemoglobin 8.6 G/DL (14.2-18.0) L Hematocrit 25.6 % (42.0-52.0) L Mean Corpuscular Volume 86 FL (80-99) Mean Corpuscular Hemoglobin 28.8 PG (27.0-31.0) Mean Corpuscular Hemoglobin Concent 33.5 G/DL (32.0-36.0) Red Cell Distribution Width 12.5 % (11.6-14.8) Platelet Count 158 K/UL (150-450) Mean Platelet Volume 6.9 FL (6.5-10.1) Neutrophils (%) (Auto) % (45.0-75.0) Lymphocytes (%) (Auto) % (20.0-45.0) Monocytes (%) (Auto) % (1.0-10.0) Eosinophils (%) (Auto) % (0.0-3.0) Basophils (%) (Auto) % (0.0-2.0) Differential Total Cells Counted 100 Neutrophils % (Manual) 87 % (45-75) H Lymphocytes % (Manual) 6 % (20-45) L Monocytes % (Manual) 7 % (1-10) Eosinophils % (Manual) 0 % (0-3) Basophils % (Manual) 0 % (0-2) Band Neutrophils 0 % (0-8) Platelet Estimate Adequate Platelet Morphology Normal Sodium Level 141 MMOL/L (136-145) Potassium Level 4.1 MMOL/L (3.5-5.1) Chloride Level 107 MMOL/L (98-107) Carbon Dioxide Level 20 MMOL/L (21-32) L Anion Gap 14 mmol/L (5-15) Blood Urea Nitrogen 37 mg/dL (7-18) H Creatinine 3.1 MG/DL (0.55-1.30) H Estimat Glomerular Filtration Rate 23.1 mL/min (>60) Glucose Level 196 MG/DL (74-106) H Uric Acid 6.4 MG/DL (2.6-7.2) Calcium Level 7.7 MG/DL (8.5-10.1) L Phosphorus Level 4.3 MG/DL (2.5-4.9) Magnesium Level 1.9 MG/DL (1.8-2.4) Total Bilirubin 0.4 MG/DL (0.2-1.0) Aspartate Amino Transf (AST/SGOT) 44 U/L (15-37) H Alanine Aminotransferase (ALT/SGPT) 26 U/L (12-78) Alkaline Phosphatase 50 U/L (46-116) C-Reactive Protein, Quantitative 19.9 mg/dL (0.00-0.90) H Pro-B-Type Natriuretic Peptide 3420 pg/mL (0-125) H Total Protein 7.1 G/DL (6.4-8.2) Albumin 2.9 G/DL (3.4-5.0) L Globulin 4.2 g/dL Albumin/Globulin Ratio 0.7 (1.0-2.7) L Objective HEENT: Atraumatic and normocephalic. Anicteric. Pupils are equal, round, and reactive to light and accommodation. Extraocular muscles intact. NECK: JVP less than 5 cm. No carotid bruit. Carotid upstrokes 2+ bilaterally. CARDIOVASCULAR: Normal S1, S2. Regular rate and rhythm. 2/6 ESM at LSB, gallops, or rubs. PMI is at fourth intercostal space at the midclavicular line. LUNGS: Bibasilar crackles with diminished both lungs. ABDOMEN: Soft, nontender, nondistended. No hepatosplenomegaly. Positive bowel sounds. EXTREMITIES: No evidence of edema, clubbing, or cyanosis. Dick Payan MD November 14, 2019 23:58
[2019-11-15] VITALS: BP 145/59
--- NOTE | 2019-11-15 00:07 | Cardiology Progress Note ---
Assessment/Plan Assessment/Plan 1. Non-sustained ventricular tachycardia, keep Mg level >2.5, optimize B- blockers. 2. Elevated troponin I level in this patient likely acute HFpEF in view of CKD, HTN and age. Continue ASA and statins. 3. Severe with HERMINIO at 0.8 cm2. Avoid potent diuretics. 4. DM, continue ASA and statins. 5. Hypertension secondary renal parenchymal disease, well controlled, continue hydralazine and nifedipine, off minoxidil due to hypotension. 6. CKD. 7. COVID-19 pneumonia on Ceftriaxone, ID follow-up. Subjective Subjective Sinus rhythm at rate of 99. On non-rebreather mask. Had a short run of NSVT. Objective Last 24 Hour Vital Signs Date Time Temp Pulse Resp B/P (MAP) Pulse Ox O2 Delivery O2 Flow Rate FiO2 11/14/19 22:07 132/67 11/14/19 21:00 Non-Rebreather 15.0 11/14/19 19:59 98.8 99 23 132/67 (88) 100 11/14/19 18:34 86 170/76 11/14/19 16:00 86 11/14/19 16:00 98.2 91 24 170/76 (107) 100 11/14/19 14:16 163/71 11/14/19 12:00 98.1 80 24 163/71 (101) 100 11/14/19 11:46 90 11/14/19 09:59 89 169/94 11/14/19 09:00 Non-Rebreather 15.0 11/14/19 08:00 97.9 89 24 169/94 (119) 100 11/14/19 08:00 92 11/14/19 06:03 99.1 11/14/19 05:32 168/74 11/14/19 04:00 108 11/14/19 04:00 97.6 107 24 173/90 (117) 100 Intake and Output 11/14/19 11/15/19 19:00 07:00 Intake Total 840 ml 225 ml Output Total 300 ml Balance 540 ml 225 ml Intake Oral 240 ml IV Total 600 ml 225 ml Output Urine Total 300 ml 2D Echo: EF 55%, HERMINIO 0.8cm2, RVSP 48, mod MR, Mild AR/MO, Grade I LVDD Laboratory Tests Test 11/14/19 08:50 White Blood Count 9.2 K/UL (4.8-10.8) # Red Blood Count 2.98 M/UL (4.70-6.10) L Hemoglobin 8.6 G/DL (14.2-18.0) L Hematocrit 25.6 % (42.0-52.0) L Mean Corpuscular Volume 86 FL (80-99) Mean Corpuscular Hemoglobin 28.8 PG (27.0-31.0) Mean Corpuscular Hemoglobin Concent 33.5 G/DL (32.0-36.0) Red Cell Distribution Width 12.5 % (11.6-14.8) Platelet Count 158 K/UL (150-450) Mean Platelet Volume 6.9 FL (6.5-10.1) Neutrophils (%) (Auto) % (45.0-75.0) Lymphocytes (%) (Auto) % (20.0-45.0) Monocytes (%) (Auto) % (1.0-10.0) Eosinophils (%) (Auto) % (0.0-3.0) Basophils (%) (Auto) % (0.0-2.0) Differential Total Cells Counted 100 Neutrophils % (Manual) 87 % (45-75) H Lymphocytes % (Manual) 6 % (20-45) L Monocytes % (Manual) 7 % (1-10) Eosinophils % (Manual) 0 % (0-3) Basophils % (Manual) 0 % (0-2) Band Neutrophils 0 % (0-8) Platelet Estimate Adequate Platelet Morphology Normal Sodium Level 141 MMOL/L (136-145) Potassium Level 4.1 MMOL/L (3.5-5.1) Chloride Level 107 MMOL/L (98-107) Carbon Dioxide Level 20 MMOL/L (21-32) L Anion Gap 14 mmol/L (5-15) Blood Urea Nitrogen 37 mg/dL (7-18) H Creatinine 3.1 MG/DL (0.55-1.30) H Estimat Glomerular Filtration Rate 23.1 mL/min (>60) Glucose Level 196 MG/DL (74-106) H Uric Acid 6.4 MG/DL (2.6-7.2) Calcium Level 7.7 MG/DL (8.5-10.1) L Phosphorus Level 4.3 MG/DL (2.5-4.9) Magnesium Level 1.9 MG/DL (1.8-2.4) Total Bilirubin 0.4 MG/DL (0.2-1.0) Aspartate Amino Transf (AST/SGOT) 44 U/L (15-37) H Alanine Aminotransferase (ALT/SGPT) 26 U/L (12-78) Alkaline Phosphatase 50 U/L (46-116) C-Reactive Protein, Quantitative 19.9 mg/dL (0.00-0.90) H Pro-B-Type Natriuretic Peptide 3420 pg/mL (0-125) H Total Protein 7.1 G/DL (6.4-8.2) Albumin 2.9 G/DL (3.4-5.0) L Globulin 4.2 g/dL Albumin/Globulin Ratio 0.7 (1.0-2.7) L Objective HEENT: Atraumatic and normocephalic. Anicteric. Pupils are equal, round, and reactive to light and accommodation. Extraocular muscles intact. NECK: JVP less than 5 cm. No carotid bruit. Carotid upstrokes 2+ bilaterally. CARDIOVASCULAR: Normal S1, S2. Regular rate and rhythm. 2/6 ESM at LSB, gallops, or rubs. PMI is at fourth intercostal space at the midclavicular line. LUNGS: Bibasilar crackles with diminished both lungs. ABDOMEN: Soft, nontender, nondistended. No hepatosplenomegaly. Positive bowel sounds. EXTREMITIES: No evidence of edema, clubbing, or cyanosis. Dick Payan MD November 15, 2019 00:07
[2019-11-15] MEDS: Carvedilol 6.25mg Tab ORAL SCH ×2 (00:52→08:56)
[2019-11-15 04:00] VITALS: BP_SYST 137; BP_SYST 163; BP_DIAS 65; BP_DIAS 82
[2019-11-15] MEDS: Acetaminophen 650 MG SUPP RECTAL PRN (05:20)
[2019-11-15] MEDS: NovoLOG Insulin Flexpen SUBQ SCH ×4 (06:29→20:40)
--- NOTE | 2019-11-15 06:47 | NUR ---
NURSE NOTES: Left a message with Dr. Mary Miranda to report the second positive Covid-19 swab. Waiting for call back.
--- NOTE | 2019-11-15 07:26 | NUR ---
HAND-OFF: Report given to BENOIT Fernandez.
--- NOTE | 2019-11-15 07:35 | NUR ---
NURSE NOTES: Received report from BENOIT Stevens. Patient is alert, oriented x1. Pt is on bedrest. Nonrebreather at 100%. SR on monitoring and evaluation advisor. Condom catheter in place. Skin intact. Arms bilaterally and legs bilaterally elevated. Repositioned for comfort. Call light within reach. Bed locked in lowest position. Will continue to monitor.
[2019-11-15 08:00] VITALS: BP 179/86
[2019-11-15 08:05] LABS: ALANINE AMINOTRANSFERASE 18 U/L (12-78); ALBUMIN 2.7 G/DL (3.4-5.0); ALBUMIN/GLOBULIN RATIO 0.7 (1.0-2.7); ALKALINE PHOSPHATASE 43 U/L (46-116); ANION GAP 13 mmol/L (5-15); ASPARTATE AMINO TRANSFERASE 48 U/L (15-37); BILIRUBIN,TOTAL 0.5 MG/DL (0.2-1.0); BLOOD UREA NITROGEN 39 mg/dL (7-18); CALCIUM 7.9 MG/DL (8.5-10.1); CARBON DIOXIDE 21 MMOL/L (21-32); CHLORIDE 107 MMOL/L (98-107); CREATININE 2.9 MG/DL (0.55-1.30); PHOSPHORUS 3.3 MG/DL (2.5-4.9); POTASSIUM 3.9 MMOL/L (3.5-5.1); SODIUM 141 MMOL/L (136-145)
--- NOTE | 2019-11-15 08:31 | Pulmonology Progress Note ---
Assessment/Plan Assessment/Plan IMPRESSION: 1. Fever. Resolved 2. Positive COVID-19 pneumonia. 3. Multiple medical problems. 4. worsening oxygenation 5. Worsening renal failure DISCUSSION: Continue current medications and care. Broad spectrum antibiotics. 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 Has positive COVID-19. Worsening oxygenation CXR fairly clear Bill Westfall M.D. Subjective ROS Limited/Unobtainable: Yes Interval Events: Doing poorly; now on NRBM Constitutional: Reports: fever, other - transferred from telemetry to [facility] HEENT: Repors: no symptoms Respiratory: Reports: shortness of breath Cardiovascular: Reports: no symptoms Gastrointestinal/Abdominal: Reports: no symptoms Genitourinary: Reports: no symptoms Allergies: Coded Allergies: No Known Allergies (Unverified , 05/27/15) Objective Last 24 Hour Vital Signs Date Time Temp Pulse Resp B/P (MAP) Pulse Ox O2 Delivery O2 Flow Rate FiO2 11/15/19 05:50 99.2 11/15/19 04:00 100.9 94 20 163/82 (109) 100 11/15/19 04:00 90 11/15/19 00:52 147 55/100 11/15/19 00:00 98 11/15/19 00:00 98.6 82 18 145/59 (87) 100 11/14/19 22:07 132/67 11/14/19 21:00 Non-Rebreather 15.0 11/14/19 19:59 98.8 99 23 132/67 (88) 100 11/14/19 19:37 94 11/14/19 18:34 86 170/76 11/14/19 16:00 86 11/14/19 16:00 98.2 91 24 170/76 (107) 100 11/14/19 14:16 163/71 11/14/19 12:00 98.1 80 24 163/71 (101) 100 11/14/19 11:46 90 11/14/19 09:59 89 169/94 11/14/19 09:00 Non-Rebreather 15.0 Intake and Output 11/14/19 11/15/19 19:00 07:00 Intake Total 840 ml 565 ml Output Total 300 ml 900 ml Balance 540 ml -335 ml Intake Oral 240 ml IV Total 600 ml 565 ml Output Urine Total 300 ml 900 ml # Voids 1 General Appearance: no acute distress HEENT: mucous membranes moist Respiratory/Chest: chest wall non-tender, lungs clear Cardiovascular: normal peripheral pulses Abdomen: soft, non tender Extremities: no edema Neurologic/Psychiatric: alert, responsive Laboratory Tests 11/14/19 08:50: White Blood Count 9.2#, Red Blood Count 2.98L, Hemoglobin 8.6L, Hematocrit 25.6L , Mean Corpuscular Volume 86, Mean Corpuscular Hemoglobin 28.8, Mean Corpuscular Hemoglobin Concent 33.5, Red Cell Distribution Width 12.5, Platelet Count 158, Mean Platelet Volume 6.9, Neutrophils (%) (Auto) , Lymphocytes (%) ( Auto) , Monocytes (%) (Auto) , Eosinophils (%) (Auto) , Basophils (%) (Auto) , Differential Total Cells Counted 100, Neutrophils % (Manual) 87H, Lymphocytes % (Manual) 6L, Monocytes % (Manual) 7, Eosinophils % (Manual) 0, Basophils % ( Manual) 0, Band Neutrophils 0, Platelet Estimate Adequate, Platelet Morphology Normal, Sodium Level 141, Potassium Level 4.1, Chloride Level 107, Carbon Dioxide Level 20L, Anion Gap 14, Blood Urea Nitrogen 37H, Creatinine 3.1H, Estimat Glomerular Filtration Rate 23.1, Glucose Level 196H, Uric Acid 6.4, Calcium Level 7.7L, Phosphorus Level 4.3, Magnesium Level 1.9, Total Bilirubin 0.4, Aspartate Amino Transf (AST/SGOT) 44H, Alanine Aminotransferase (ALT/SGPT) 26, Alkaline Phosphatase 50, C-Reactive Protein, Quantitative 19.9H, Pro-B-Type Natriuretic Peptide 3420H, Total Protein 7.1, Albumin 2.9L, Globulin 4.2, Albumin/Globulin Ratio 0.7L 11/15/19 06:45: White Blood Count [Pending], Red Blood Count [Pending], Hemoglobin [Pending], Hematocrit [Pending], Mean Corpuscular Volume [Pending], Mean Corpuscular Hemoglobin [Pending], Mean Corpuscular Hemoglobin Concent [Pending], Red Cell Distribution Width [Pending], Platelet Count [Pending], Mean Platelet Volume [ Pending], Neutrophils (%) (Auto) [Pending], Lymphocytes (%) (Auto) [Pending], Monocytes (%) (Auto) [Pending], Eosinophils (%) (Auto) [Pending], Basophils (%) (Auto) [Pending], Sodium Level 141, Potassium Level 3.9, Chloride Level 107, Carbon Dioxide Level 21, Anion Gap 13, Blood Urea Nitrogen 39H, Creatinine 2.9H , Estimat Glomerular Filtration Rate 25.0, Glucose Level 130H, Calcium Level 7.9L, Phosphorus Level 3.3, Magnesium Level 2.1, Total Bilirubin 0.5, Aspartate Amino Transf (AST/SGOT) 48H, Alanine Aminotransferase (ALT/SGPT) 18, Alkaline Phosphatase 43L, C-Reactive Protein, Quantitative 28.7H, Pro-B-Type Natriuretic Peptide 5660H, Total Protein 6.8, Albumin 2.7L, Globulin 4.1, Albumin/Globulin Ratio 0.7L Current Medications Medications (Trade) Dose Ordered Sig/Mayank Route PRN Reason Start Time Stop Time Status Last Admin Dose Admin Acetaminophen (Tylenol) 500 mg Q4H PRN ORAL Mild Pain/Temp >100.5 11/14/19 09:45 12/08/19 21:44 Acetaminophen (Tylenol) 650 mg Q4H PRN RECTAL Mild Pain (Pain Scale 1-3) 11/14/19 07:45 12/13/19 19:44 11/15/19 05:20 Aspirin (Ecotrin) 81 mg DAILY ORAL 11/14/19 09:00 12/27/19 08:59 11/14/19 09:58 Atorvastatin Calcium (Lipitor) 20 mg BEDTIME ORAL 11/14/19 21:00 02/10/20 20:59 11/14/19 22:07 Bethanechol Chloride (Urecholine) 25 mg THREE TIMES A DAY ORAL 11/14/19 09:00 12/09/19 08:59 11/14/19 18:34 Carvedilol (Coreg) 6.25 mg EVERY 12 HOURS ORAL 11/15/19 00:15 12/15/19 00:14 11/15/19 00:52 Ceftriaxone Sodium 1 gm/ Dextrose 55 ml @ 110 mls/hr Q24H IVPB 5/1/20 14:00 11/16/19 13:59 11/14/19 14:16 Clonidine HCl (Catapres Tab) 0.1 mg Q4H PRN ORAL For High Blood Pressure 11/14/19 07:15 02/09/20 15:11 Dextrose (Dextrose 50%) 25 ml Q30M PRN IV Hypoglycemia 11/14/19 07:15 02/06/20 21:44 Dextrose (Dextrose 50%) 50 ml Q30M PRN IV Hypoglycemia 11/14/19 07:15 02/06/20 21:44 Docusate Sodium (Colace) 100 mg THREE TIMES A DAY ORAL 11/14/19 09:00 12/09/19 17:59 11/14/19 18:34 Epoetin Mohit (Epoetin Mohit-EPBX(NON ESRD)) 6,000 unit SUN-SUN-SUN SUBQ 11/14/19 21:00 02/08/20 20:59 11/14/19 22:30 Finasteride (Proscar) 5 mg DAILY ORAL 11/14/19 09:00 02/07/20 08:59 11/14/19 09:58 Hydralazine HCl (Apresoline) 25 mg BID ORAL 11/15/19 09:00 02/13/20 08:59 Insulin Aspart (NovoLOG) BEFORE MEALS AND HS SUBQ 11/14/19 11:30 02/07/20 22:59 11/14/19 22:33 Insulin Detemir (Levemir) 14 units Q24H SUBQ 11/14/19 09:00 02/07/20 08:59 11/14/19 13:07 Mirtazapine (Remeron) 7.5 mg BEDTIME ORAL 11/14/19 21:00 02/06/20 22:59 11/14/19 22:06 Nateglinide (Starlix) 120 mg THREE TIMES A DAY ORAL 11/14/19 09:00 12/09/19 08:59 11/14/19 18:34 Nifedipine (Procardia XL) 90 mg DAILY ORAL 11/15/19 09:00 12/15/19 08:59 Sodium Chloride 1,000 ml @ 50 mls/hr Q20H IV 11/14/19 22:15 12/14/19 22:14 11/14/19 23:06 Tamsulosin HCl (Flomax) 0.4 mg BID ORAL 11/14/19 09:00 12/09/19 20:59 11/14/19 18:34 Bill Westfall MD November 15, 2019 08:31
[2019-11-15 08:53] LABS: BASOPHILS % (AUTO) 0.4 % (0.0-2.0); EOSINOPHILS % (AUTO) 0.1 % (0.0-3.0); HEMATOCRIT 24.8 % (42.0-52.0); HEMOGLOBIN 8.4 G/DL (14.2-18.0); LYMPHOCYTES % (AUTO) 8.9 % (20.0-45.0); MEAN CORPUSCULAR VOLUME 85 FL (80-99); MONOCYTES % (AUTO) 7.4 % (1.0-10.0); NEUTROPHILS % (AUTO) 83.2 % (45.0-75.0); PLATELET COUNT 182 K/UL (150-450); RED BLOOD COUNT 2.92 M/UL (4.70-6.10); RED CELL DISTRIBUTION WIDTH 12.4 % (11.6-14.8); WHITE BLOOD COUNT 7.6 K/UL (4.8-10.8)
[2019-11-15] MEDS: HydrALAZINE 50mg tab ORAL SCH ×2 (08:56→18:00)
[2019-11-15] MEDS: Aspirin EC 81mg tab ORAL SCH (08:57)
[2019-11-15] MEDS: Bethanechol 25mg Tab ORAL SCH ×3 (08:57→18:00)
[2019-11-15] MEDS: Docusate 100mg cap ORAL SCH ×3 (08:57→18:00)
[2019-11-15] MEDS: Tamsulosin 0.4mg cap ORAL SCH ×2 (08:57→18:00)
[2019-11-15] MEDS: Levemir Flexpen SUBQ SCH (09:14)
--- NOTE | 2019-11-15 09:29 | Consultation ---
DATE OF CONSULTATION: 11/15/2019 CONSULTING PHYSICIAN: Fer Brown MD. CHIEF COMPLAINT: Dysphagia. HISTORY OF PRESENT ILLNESS: Most of the history is per chart. The [facility] who [facility] the prison is an 89-year-old patient with complaint of cough and fever, COVID positive now. GI consult requested for evaluation of dysphagia and failure to thrive. According to the nurses, even if they give him a spoon of food, he will start coughing and is unable to eat. PAST MEDICAL HISTORY: Per chart, 1. Hypertension. 2. Diabetes. 3. Anemia. 4. Renal insufficiency. 5. BPH. ALLERGIES: No known drug allergies. MEDICATIONS: Please see medication reconciliation list. SOCIAL HISTORY: Currently lives in a prison. No history of tobacco, alcohol, or drug abuse. FAMILY HISTORY: Noncontributory. PAST SURGICAL HISTORY: Unknown. REVIEW OF SYSTEMS: Unable to obtain. PHYSICAL EXAMINATION: VITAL SIGNS: Temperature is 100.9, pulse 94, respirations 20, blood pressure is 163/82. HEENT: Normocephalic and atraumatic. Pale conjunctivae. NECK: Supple. No evidence of obvious lymphadenopathy. CARDIOVASCULAR: Tachy. Regular rate. Plus S1-S2. LUNGS: Decreased breath sounds bilaterally and diffusely. ABDOMEN: Soft, nontender. No rebound. No guarding. No peritoneal sign. EXTREMITIES: No cyanosis, no clubbing, no edema. LABORATORY DATA: Sodium 141, potassium 4.1, BUN is 37, creatinine 3.1, glucose is 196. White count is 9.2, hemoglobin 8.6, hematocrit 25, and platelet count is 158. ASSESSMENT AND PLAN: This is an 89-year-old patient with COVID positive pneumonia, now with dysphagia. Plan to place an NG tube for over the weekend, start feeding on Glucerna 1.5 with G-tube flushes. The patient to be seen by speech therapist on Sunday for evaluation of swallowing and depending on the results of the swallow evaluation, we will consider further management. Given the patient's COVID positive, he requires G-tube placement, most probably we have to wait until he is off of isolation. We will follow. Fer Oliva Brown DR: KIERRA JOB#: [id number] CC:
--- NOTE | 2019-11-15 11:54 | Cardiology Progress Note ---
Assessment/Plan Assessment/Plan 1. Non-sustained ventricular tachycardia, keep Mg level >2.5, optimize B- blockers. 2. Elevated troponin I level in this patient likely acute HFpEF in view of CKD, HTN and age. Continue ASA and statins. 3. Severe with HERMINIO at 0.8 cm2. Avoid potent diuretics. 4. DM, continue ASA and statins. 5. Hypertension secondary renal parenchymal disease, well controlled, continue hydralazine and nifedipine, off minoxidil due to hypotension. Add clonidine patch. 6. CKD. 7. COVID-19 pneumonia on Ceftriaxone, ID follow-up. Subjective Subjective Sinus rhythm at rate of 88. Objective Last 24 Hour Vital Signs Date Time Temp Pulse Resp B/P (MAP) Pulse Ox O2 Delivery O2 Flow Rate FiO2 11/15/19 08:56 88 179/86 11/15/19 08:56 179/86 11/15/19 08:56 88 179/86 11/15/19 08:00 99.5 88 21 179/86 (117) 100 11/15/19 08:00 83 11/15/19 05:50 99.2 11/15/19 04:00 100.9 94 20 163/82 (109) 100 11/15/19 04:00 90 11/15/19 00:52 147 55/100 11/15/19 00:00 98 11/15/19 00:00 98.6 82 18 145/59 (87) 100 11/14/19 22:07 132/67 11/14/19 21:00 Non-Rebreather 15.0 11/14/19 19:59 98.8 99 23 132/67 (88) 100 11/14/19 19:37 94 11/14/19 18:34 86 170/76 11/14/19 16:00 86 11/14/19 16:00 98.2 91 24 170/76 (107) 100 11/14/19 14:16 163/71 11/14/19 12:00 98.1 80 24 163/71 (101) 100 Intake and Output 11/14/19 11/15/19 19:00 07:00 Intake Total 840 ml 565 ml Output Total 300 ml 900 ml Balance 540 ml -335 ml Intake Oral 240 ml IV Total 600 ml 565 ml Output Urine Total 300 ml 900 ml # Voids 1 2D Echo: EF 55%, HERMINIO 0.8cm2, RVSP 48, mod MR, Mild AR/NC, Grade I LVDD Laboratory Tests Test 11/15/19 06:45 White Blood Count 7.6 K/UL (4.8-10.8) Red Blood Count 2.92 M/UL (4.70-6.10) L Hemoglobin 8.4 G/DL (14.2-18.0) L Hematocrit 24.8 % (42.0-52.0) L Mean Corpuscular Volume 85 FL (80-99) Mean Corpuscular Hemoglobin 28.7 PG (27.0-31.0) Mean Corpuscular Hemoglobin Concent 33.7 G/DL (32.0-36.0) Red Cell Distribution Width 12.4 % (11.6-14.8) Platelet Count 182 K/UL (150-450) Mean Platelet Volume 7.2 FL (6.5-10.1) Neutrophils (%) (Auto) 83.2 % (45.0-75.0) H Lymphocytes (%) (Auto) 8.9 % (20.0-45.0) L Monocytes (%) (Auto) 7.4 % (1.0-10.0) Eosinophils (%) (Auto) 0.1 % (0.0-3.0) Basophils (%) (Auto) 0.4 % (0.0-2.0) Sodium Level 141 MMOL/L (136-145) Potassium Level 3.9 MMOL/L (3.5-5.1) Chloride Level 107 MMOL/L (98-107) Carbon Dioxide Level 21 MMOL/L (21-32) Anion Gap 13 mmol/L (5-15) Blood Urea Nitrogen 39 mg/dL (7-18) H Creatinine 2.9 MG/DL (0.55-1.30) H Estimat Glomerular Filtration Rate 25.0 mL/min (>60) Glucose Level 130 MG/DL (74-106) H Calcium Level 7.9 MG/DL (8.5-10.1) L Phosphorus Level 3.3 MG/DL (2.5-4.9) Magnesium Level 2.1 MG/DL (1.8-2.4) Total Bilirubin 0.5 MG/DL (0.2-1.0) Aspartate Amino Transf (AST/SGOT) 48 U/L (15-37) H Alanine Aminotransferase (ALT/SGPT) 18 U/L (12-78) Alkaline Phosphatase 43 U/L (46-116) L C-Reactive Protein, Quantitative 28.7 mg/dL (0.00-0.90) H Pro-B-Type Natriuretic Peptide 5660 pg/mL (0-125) H Total Protein 6.8 G/DL (6.4-8.2) Albumin 2.7 G/DL (3.4-5.0) L Globulin 4.1 g/dL Albumin/Globulin Ratio 0.7 (1.0-2.7) L Microbiology Date/Time Source Procedure Growth Status 11/12/19 16:00 Nasopharynx Coronavirus COVID-19 PCR ([facility]) - Final Complete Objective HEENT: Atraumatic and normocephalic. Anicteric. Pupils are equal, round, and reactive to light and accommodation. Extraocular muscles intact. NECK: JVP less than 5 cm. No carotid bruit. Carotid upstrokes 2+ bilaterally. CARDIOVASCULAR: Normal S1, S2. Regular rate and rhythm. 2/6 ESM at LSB, gallops, or rubs. PMI is at fourth intercostal space at the midclavicular line. LUNGS: Bibasilar crackles with diminished both lungs. ABDOMEN: Soft, nontender, nondistended. No hepatosplenomegaly. Positive bowel sounds. EXTREMITIES: No evidence of edema, clubbing, or cyanosis. Dick Payan MD November 15, 2019 11:54
[2019-11-15 12:00] VITALS: BP 182/77
[2019-11-15] MEDS: cefTRIAXone 1 GM in D5W 55 ML IVPB SCH (14:08)
[2019-11-15] MEDS ORDERED: 1/2 NS 1000ml IV ONE (15:11)
[2019-11-15] MEDS ORDERED: Tubing IV Secondary IV ONE (15:11)
[2019-11-15 16:00] VITALS: BP 174/78
--- NOTE | 2019-11-15 16:20 | Nephrology Progress Note ---
Assessment/Plan Problem List: (1) Acute on chronic renal failure Assessment: Serum creatinine rising (2) BPH (benign prostatic hyperplasia) (3) Anemia (4) Sepsis (5) COVID-19 virus detected Assessment Mr. Melton is admitted with pneumonia and UTI and exposure to COVID-19 virus, and the test is positive From renal standpoint of view: Acute on chronic renal failure: Serum creatinine has risen from baseline of 1.6- 2.5 Diabetic nephropathy BPH Anemia Hypertension Plan Positive for COVID-19 Serum creatinine pito , but seems to be stabilizing and declining Kidney ultrasound results noted adjust blood pressure medication as the blood pressure has been fluctuating Slow hydration and 1 bolus of albumin Kidney ultrasound results noted Monitor renal parameters Avoid nephrotoxic's Flomax twice daily Antibiotics per ID Will review the 2D echocardiogram and ultrasound which was done previously Per orders Subjective ROS Limited/Unobtainable: No Constitutional: Reports: malaise Objective Objective Last 24 Hour Vital Signs Date Time Temp Pulse Resp B/P (MAP) Pulse Ox O2 Delivery O2 Flow Rate FiO2 11/15/19 15:13 148/61 11/15/19 12:00 107 11/15/19 12:00 97.7 103 20 182/77 (112) 100 11/15/19 09:00 Non-Rebreather 15.0 11/15/19 08:56 88 179/86 11/15/19 08:56 179/86 11/15/19 08:56 88 179/86 11/15/19 08:00 99.5 88 21 179/86 (117) 100 11/15/19 08:00 83 11/15/19 05:50 99.2 11/15/19 04:00 100.9 94 20 163/82 (109) 100 11/15/19 04:00 90 11/15/19 00:52 147 55/100 11/15/19 00:00 98 11/15/19 00:00 98.6 82 18 145/59 (87) 100 11/14/19 22:07 132/67 11/14/19 21:00 Non-Rebreather 15.0 11/14/19 19:59 98.8 99 23 132/67 (88) 100 11/14/19 19:37 94 11/14/19 18:34 86 170/76 Intake and Output 11/14/19 11/15/19 18:59 06:59 Intake Total 840 ml 640 ml Output Total 300 ml 900 ml Balance 540 ml -260 ml Intake Oral 240 ml IV Total 600 ml 640 ml Output Urine Total 300 ml 900 ml # Voids 1 Laboratory Tests 11/15/19 06:45: White Blood Count 7.6, Red Blood Count 2.92L, Hemoglobin 8.4L, Hematocrit 24.8L , Mean Corpuscular Volume 85, Mean Corpuscular Hemoglobin 28.7, Mean Corpuscular Hemoglobin Concent 33.7, Red Cell Distribution Width 12.4, Platelet Count 182, Mean Platelet Volume 7.2, Neutrophils (%) (Auto) 83.2H, Lymphocytes ( %) (Auto) 8.9L, Monocytes (%) (Auto) 7.4, Eosinophils (%) (Auto) 0.1, Basophils (%) (Auto) 0.4, Sodium Level 141, Potassium Level 3.9, Chloride Level 107, Carbon Dioxide Level 21, Anion Gap 13, Blood Urea Nitrogen 39H, Creatinine 2.9H , Estimat Glomerular Filtration Rate 25.0, Glucose Level 130H, Calcium Level 7.9L, Phosphorus Level 3.3, Magnesium Level 2.1, Total Bilirubin 0.5, Aspartate Amino Transf (AST/SGOT) 48H, Alanine Aminotransferase (ALT/SGPT) 18, Alkaline Phosphatase 43L, C-Reactive Protein, Quantitative 28.7H, Pro-B-Type Natriuretic Peptide 5660H, Total Protein 6.8, Albumin 2.7L, Globulin 4.1, Albumin/Globulin Ratio 0.7L Height (Feet): 5 Height (Inches): 10.00 Weight (Pounds): 196 General Appearance: no apparent distress, lethargic Cardiovascular: tachycardia Respiratory/Chest: decreased breath sounds Abdomen: distended Objective No change Rodrigue Mackenzie MD November 15, 2019 16:20
--- NOTE | 2019-11-15 19:09 | NUR ---
HAND-OFF: Report given to BENOIT Cueva. Patient remain stable. No respiratory distress, no SOB, no pain noted. Bed locked in lowest position. Call light within reach. No new orders given from MD. Will continue to monitor.
--- NOTE | 2019-11-15 19:30 | NUR ---
NURSE NOTES: SBAR from Shakila LABOY. RN. Patient is aaox 2, confused, on school lunch monitor, with no acute distress and clean. Patient is cooperative, clean on non rebreather saturating at 100%. Skin issues noted with left wrist 20g and right wrist 20g IV patent with no sign os infection. Patient is in bed watching TV, bed at its lowest position, call light in reach, bed alarm on and bed is locked. Will continue to monitor.
[2019-11-15 20:00] VITALS: BP 177/86
--- NOTE | 2019-11-15 20:00 | NUR ---
NURSE NOTES: Attempted to insert NGT but was unsuccessful. Other Staff also tried to attempt but also was unsuccessful. Will let patient rest and attempt later. Patient continues to remains on non-rebreather mask at 100%/15L.
--- NOTE | 2019-11-15 20:18 | General Progress Note ---
Assessment/Plan Problem List: (1) Sepsis ICD Codes: A41.9 - Sepsis, unspecified organism SNOMED: 39838576 (2) Diabetes ICD Codes: E11.9 - Type 2 diabetes mellitus without complications SNOMED: 91508759 (3) BPH (benign prostatic hyperplasia) ICD Codes: N40.0 - Benign prostatic hyperplasia without lower urinary tract symptoms SNOMED: 544864070 (4) Anemia ICD Codes: D64.9 - Anemia, unspecified SNOMED: 340635376 (5) Acute on chronic renal failure ICD Codes: N17.9 - Acute kidney failure, unspecified; N18.9 - Chronic kidney disease, unspecified SNOMED: 431431179 (6) Fever ICD Codes: R50.9 - Fever, unspecified SNOMED: 378760334 Qualifiers: Qualified Codes: R50.9 - Fever, unspecified (7) Suspected COVID-19 virus infection ICD Codes: Z20.828 - Contact with and (suspected) exposure to other viral communicable diseases SNOMED: 123323462 (8) UTI (urinary tract infection) ICD Codes: N39.0 - Urinary tract infection, site not specified SNOMED: 93726254 Qualifiers: Qualified Codes: N39.0 - Urinary tract infection, site not specified (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 SNOMED: 68942034, 465369316 (10) Hypertension ICD Codes: I10 - Essential (primary) hypertension SNOMED: 90956444 Status: progressing Assessment/Plan: cri sepsis abx per id not improving encephalopathy uti pna hs intermittent fever is covid positive pna Subjective ROS Limited/Unobtainable: Yes Allergies: Coded Allergies: No Known Allergies (Unverified , 05/27/15) Objective Last 24 Hour Vital Signs Date Time Temp Pulse Resp B/P (MAP) Pulse Ox O2 Delivery O2 Flow Rate FiO2 11/15/19 16:00 99.1 91 18 174/78 (110) 100 11/15/19 15:20 97 11/15/19 15:13 148/61 11/15/19 12:00 107 11/15/19 12:00 97.7 103 20 182/77 (112) 100 11/15/19 09:00 Non-Rebreather 15.0 11/15/19 08:56 88 179/86 11/15/19 08:56 179/86 11/15/19 08:56 88 179/86 11/15/19 08:00 99.5 88 21 179/86 (117) 100 11/15/19 08:00 83 11/15/19 05:50 99.2 11/15/19 04:00 100.9 94 20 163/82 (109) 100 11/15/19 04:00 90 11/15/19 00:52 147 55/100 11/15/19 00:00 98 11/15/19 00:00 98.6 82 18 145/59 (87) 100 11/14/19 22:07 132/67 11/14/19 21:00 Non-Rebreather 15.0 Intake and Output 11/14/19 11/15/19 19:00 07:00 Intake Total 840 ml 615 ml Output Total 300 ml 900 ml Balance 540 ml -285 ml Intake Oral 240 ml IV Total 600 ml 615 ml Output Urine Total 300 ml 900 ml # Voids 1 Laboratory Tests 11/15/19 06:45: White Blood Count 7.6, Red Blood Count 2.92L, Hemoglobin 8.4L, Hematocrit 24.8L , Mean Corpuscular Volume 85, Mean Corpuscular Hemoglobin 28.7, Mean Corpuscular Hemoglobin Concent 33.7, Red Cell Distribution Width 12.4, Platelet Count 182, Mean Platelet Volume 7.2, Neutrophils (%) (Auto) 83.2H, Lymphocytes ( %) (Auto) 8.9L, Monocytes (%) (Auto) 7.4, Eosinophils (%) (Auto) 0.1, Basophils (%) (Auto) 0.4, Sodium Level 141, Potassium Level 3.9, Chloride Level 107, Carbon Dioxide Level 21, Anion Gap 13, Blood Urea Nitrogen 39H, Creatinine 2.9H , Estimat Glomerular Filtration Rate 25.0, Glucose Level 130H, Calcium Level 7.9L, Phosphorus Level 3.3, Magnesium Level 2.1, Total Bilirubin 0.5, Aspartate Amino Transf (AST/SGOT) 48H, Alanine Aminotransferase (ALT/SGPT) 18, Alkaline Phosphatase 43L, C-Reactive Protein, Quantitative 28.7H, Pro-B-Type Natriuretic Peptide 5660H, Total Protein 6.8, Albumin 2.7L, Globulin 4.1, Albumin/Globulin Ratio 0.7L Height (Feet): 5 Height (Inches): 10.00 Weight (Pounds): 196 Aliyah Miller MD November 15, 2019 20:18
--- NOTE | 2019-11-15 20:30 | NUR ---
NURSE NOTES: Glucose is 162. Will hold due to poor oral intake.
[2019-11-15] MEDS: Atorvastatin 20mg tab ORAL SCH (20:39)
[2019-11-15] MEDS: Carvedilol 12.5mg tab ORAL SCH (20:40)
--- NOTE | 2019-11-15 22:00 | NUR ---
NURSE NOTES: Patient is able to swallow medications with thickened water but gets short of breath when doing so. Patients continues to remain on non-rebreather mask at 15L/100%. [id number] above 96%. RR 20. Blood pressure stable at this time.
[2019-11-16] VITALS: BP 159/83
--- NOTE | 2019-11-16 | NUR ---
NURSE NOTES: Attempted to insert NGT but was unsuccessful. Other Staff also tried to attempt but also was unsuccessful. Will let patient rest and attempt later. Patient continues to remains on non-rebreather mask at 100%/15L. Vitals are stable. SpO2 100%. NSR on the monitor. Pulses present. SOB with exertion.
--- NOTE | 2019-11-16 02:00 | NUR ---
NURSE NOTES: Patient is asleep at this time. Remains on non-rebreather mask at 100%/15L. Pulses present, chest rise and fall noted. Will continue to monitor .
[2019-11-16 04:00] VITALS: BP 160/80
--- NOTE | 2019-11-16 04:00 | NUR ---
NURSE NOTES: AM care performed. Blood drawn and sent to lab. Patients temperatures is 99.7F. Cooling bath was given. Other vitals are stable. SOB with exertion. Patient continues to be on Non-rebreather mas at 15L. Patient continues to have poor oral intake and does not follow commands. Pulses noted. Attempted to re-insert NGT but was unsuccessful, other staff also tried but failed.
[2019-11-16] MEDS: Acetaminophen 650 MG SUPP RECTAL PRN ×2 (06:00→18:36)
[2019-11-16] MEDS: NovoLOG Insulin Flexpen SUBQ SCH ×4 (06:13→21:00)
--- NOTE | 2019-11-16 06:13 | NUR ---
NURSE NOTES: Temperature of 101.7. (ax) Tylenol 650 rectally was given. cooling measures continues. other Vitals are stable. Glucose noted to be 152. No insulin coverage provided given that patient has poor oral intake and no feeds are currently running d/t unsuccessful NGT insertion attempts.
--- NOTE | 2019-11-16 06:34 | NUR ---
NURSE NOTES: Temperature now is 101F (ax). Cooling measure ongoing.
[2019-11-16 06:35] LABS: HEMATOCRIT 24.7 % (42.0-52.0); HEMOGLOBIN 8.1 G/DL (14.2-18.0); MEAN CORPUSCULAR VOLUME 87 FL (80-99); PLATELET COUNT 205 K/UL (150-450); RED BLOOD COUNT 2.85 M/UL (4.70-6.10); RED CELL DISTRIBUTION WIDTH 12.3 % (11.6-14.8); WHITE BLOOD COUNT 8.9 K/UL (4.8-10.8)
[2019-11-16 06:57] LABS: ALANINE AMINOTRANSFERASE 36 U/L (12-78); ALBUMIN 2.5 G/DL (3.4-5.0); ALBUMIN/GLOBULIN RATIO 0.6 (1.0-2.7); ALKALINE PHOSPHATASE 50 U/L (46-116); ANION GAP 15 mmol/L (5-15); ASPARTATE AMINO TRANSFERASE 55 U/L (15-37); BILIRUBIN,TOTAL 0.5 MG/DL (0.2-1.0); BLOOD UREA NITROGEN 40 mg/dL (7-18); CARBON DIOXIDE 20 MMOL/L (21-32); CHLORIDE 109 MMOL/L (98-107); CREATININE 2.9 MG/DL (0.55-1.30); PHOSPHORUS 3.6 MG/DL (2.5-4.9); POTASSIUM 4.5 MMOL/L (3.5-5.1); SODIUM 144 MMOL/L (136-145)
--- NOTE | 2019-11-16 07:16 | General Progress Note ---
Assessment/Plan Status: progressing Assessment/Plan: 1. Hypertension. 2. Diabetes. 3. Anemia. 4. Renal insufficiency. 5. BPH. 6. Dysphagia 7. COVID PNA patient on 100 % non breather attempts to place NGT by nurses has failed fu labs pulm CARE fu speech eval tomorrow plan NGT placement tomorrow if he fails Subjective ROS Limited/Unobtainable: No Allergies: Coded Allergies: No Known Allergies (Unverified , 05/27/15) Objective Last 24 Hour Vital Signs Date Time Temp Pulse Resp B/P (MAP) Pulse Ox O2 Delivery O2 Flow Rate FiO2 11/16/19 06:33 101.0 11/16/19 06:30 101.0 11/16/19 06:00 101.7 11/16/19 04:00 99.7 107 20 160/80 (106) 100 11/16/19 04:00 Non-Rebreather 15.0 11/16/19 03:54 77 11/16/19 00:00 Non-Rebreather 15.0 11/16/19 00:00 97.9 103 20 159/83 (108) 100 11/15/19 23:32 84 11/15/19 20:40 91 174/78 11/15/19 20:00 Non-Rebreather 15.0 11/15/19 20:00 98.7 105 24 177/86 (116) 100 11/15/19 19:03 87 11/15/19 16:00 99.1 91 18 174/78 (110) 100 11/15/19 15:20 97 11/15/19 15:13 148/61 11/15/19 12:00 107 11/15/19 12:00 97.7 103 20 182/77 (112) 100 11/15/19 09:00 Non-Rebreather 15.0 11/15/19 08:56 88 179/86 11/15/19 08:56 179/86 11/15/19 08:56 88 179/86 11/15/19 08:00 99.5 88 21 179/86 (117) 100 11/15/19 08:00 83 Intake and Output 11/15/19 11/16/19 19:00 07:00 Intake Total 500 ml 650 ml Output Total 600 ml 700 ml Balance -100 ml -50 ml Intake Oral 100 ml IV Total 500 ml 550 ml Output Urine Total 600 ml 700 ml Laboratory Tests 11/16/19 04:00: White Blood Count 8.9, Red Blood Count 2.85L, Hemoglobin 8.1L, Hematocrit 24.7L , Mean Corpuscular Volume 87, Mean Corpuscular Hemoglobin 28.4, Mean Corpuscular Hemoglobin Concent 32.8, Red Cell Distribution Width 12.3, Platelet Count 205, Mean Platelet Volume 5.0L, Neutrophils (%) (Auto) , Lymphocytes (%) ( Auto) , Monocytes (%) (Auto) , Eosinophils (%) (Auto) , Basophils (%) (Auto) , Prothrombin Time [Pending], Prothromb Time International Ratio [Pending], Sodium Level [Pending], Potassium Level [Pending], Chloride Level [Pending], Carbon Dioxide Level [Pending], Blood Urea Nitrogen [Pending], Creatinine [ Pending], Estimat Glomerular Filtration Rate [Pending], Glucose Level [Pending] , Calcium Level [Pending], Phosphorus Level [Pending], Magnesium Level [Pending] , Iron Level [Pending], Unsaturated Iron Binding [Pending], Total Bilirubin [ Pending], Aspartate Amino Transf (AST/SGOT) [Pending], Alanine Aminotransferase (ALT/SGPT) [Pending], Alkaline Phosphatase [Pending], Total Protein [Pending], Albumin [Pending], Globulin [Pending], Vitamin B12 Level [Pending], Folate [ Pending] Height (Feet): 5 Height (Inches): 10.00 Weight (Pounds): 196 General Appearance: lethargic EENT: normal ENT inspection Neck: supple Cardiovascular: tachycardia Respiratory/Chest: decreased breath sounds Abdomen: normal bowel sounds, non tender, soft Extremities: non-tender Fer Brown MD November 16, 2019 07:15
--- NOTE | 2019-11-16 07:20 | NUR ---
NURSE NOTES: Dr. Brown called and gave him update on patients progress, endorsed to him about unsuccessful attempts of NGT insertion .
--- NOTE | 2019-11-16 07:21 | NUR ---
HAND-OFF: Report given to Samreen LABOY.
[2019-11-16 07:29] LABS: % IRON SATURATION 12 % (15-50); IRON 17 ug/dL (50-175); TOTAL IRON BINDING CAPACITY 144 ug/dL (250-450)
--- NOTE | 2019-11-16 07:39 | NUR ---
NURSE NOTES: Received report from BENOIT Cueva.
[2019-11-16 08:00] VITALS: BP 144/63
[2019-11-16] MEDS: Docusate 100mg/10ml Liq ORAL SCH ×3 (09:00→18:00)
[2019-11-16] MEDS: Tamsulosin 0.4mg cap ORAL SCH ×2 (09:00→18:00)
[2019-11-16] MEDS: Bethanechol 25mg Tab ORAL SCH ×3 (09:00→18:00)
[2019-11-16] MEDS: Carvedilol 12.5mg tab ORAL SCH (09:00)
[2019-11-16] MEDS: HydrALAZINE 50mg tab ORAL SCH ×2 (09:00→18:00)
[2019-11-16] MEDS: Aspirin EC 81mg tab ORAL SCH (09:00)
[2019-11-16] MEDS: Levemir Flexpen SUBQ SCH (09:04)
--- NOTE | 2019-11-16 09:18 | NUR ---
NURSE NOTES: Patient resting in bed. A&Ox1. Nonrebreather at 15L with 98% O2 sat. Condom catheter in place, patent, and draining yellow colored urine. Right wrist with 20G running 1/2 NS at 50ml/hr. Bed in lowest position and brakes engaged. Will continue to monitor.
--- NOTE | 2019-11-16 10:22 | Nephrology Progress Note ---
Assessment/Plan Problem List: (1) Acute on chronic renal failure Assessment: Serum creatinine rising (2) BPH (benign prostatic hyperplasia) (3) Anemia (4) Sepsis (5) COVID-19 virus detected Assessment Mr. Melton is admitted with pneumonia and UTI and exposure to COVID-19 virus, and the test is positive From renal standpoint of view: Acute on chronic renal failure: Serum creatinine has risen from baseline of 1.6- 2.5 Diabetic nephropathy BPH Anemia Hypertension Plan Positive for COVID-19 Serum creatinine pito , but seems to be stabilizing and declining Kidney ultrasound results noted adjust blood pressure medication as the blood pressure has been fluctuating Slow hydration and 1 bolus of albumin Kidney ultrasound results noted Monitor renal parameters Avoid nephrotoxic's Flomax twice daily Antibiotics per ID Will review the 2D echocardiogram and ultrasound which was done previously Per orders Subjective ROS Limited/Unobtainable: No Constitutional: Reports: malaise, weakness Objective Objective Last 24 Hour Vital Signs Date Time Temp Pulse Resp B/P (MAP) Pulse Ox O2 Delivery O2 Flow Rate FiO2 11/16/19 09:00 83 144/63 11/16/19 09:00 83 144/63 11/16/19 09:00 144/63 11/16/19 09:00 Non-Rebreather 15.0 11/16/19 08:00 97.9 83 18 144/63 (90) 98 11/16/19 07:48 74 11/16/19 06:33 101.0 11/16/19 06:30 101.0 11/16/19 06:00 101.7 11/16/19 04:00 99.7 107 20 160/80 (106) 100 11/16/19 04:00 Non-Rebreather 15.0 11/16/19 03:54 77 11/16/19 00:00 Non-Rebreather 15.0 11/16/19 00:00 97.9 103 20 159/83 (108) 100 11/15/19 23:32 84 11/15/19 20:40 91 174/78 11/15/19 20:00 Non-Rebreather 15.0 11/15/19 20:00 98.7 105 24 177/86 (116) 100 11/15/19 19:03 87 11/15/19 16:00 99.1 91 18 174/78 (110) 100 11/15/19 15:20 97 11/15/19 15:13 148/61 11/15/19 12:00 107 11/15/19 12:00 97.7 103 20 182/77 (112) 100 Intake and Output 11/15/19 11/16/19 19:00 07:00 Intake Total 500 ml 650 ml Output Total 600 ml 700 ml Balance -100 ml -50 ml Intake Oral 100 ml IV Total 500 ml 550 ml Output Urine Total 600 ml 700 ml Current Medications Medications (Trade) Dose Ordered Sig/Mayank Route PRN Reason Start Time Stop Time Status Last Admin Dose Admin Acetaminophen (Tylenol) 500 mg Q4H PRN ORAL Mild Pain/Temp >100.5 11/14/19 09:45 12/08/19 21:44 Acetaminophen (Tylenol) 650 mg Q4H PRN RECTAL Mild Pain (Pain Scale 1-3) 11/14/19 07:45 12/13/19 19:44 11/16/19 06:00 Aspirin (Ecotrin) 81 mg DAILY ORAL 11/14/19 09:00 12/27/19 08:59 11/15/19 08:57 Atorvastatin Calcium (Lipitor) 20 mg BEDTIME ORAL 11/14/19 21:00 02/10/20 20:59 11/15/19 20:39 Bethanechol Chloride (Urecholine) 25 mg THREE TIMES A DAY ORAL 11/14/19 09:00 12/09/19 08:59 11/15/19 14:05 Carvedilol (Coreg) 12.5 mg EVERY 12 HOURS ORAL 11/15/19 21:00 12/15/19 20:59 11/15/19 20:40 Ceftriaxone Sodium 1 gm/ Dextrose 55 ml @ 110 mls/hr Q24H IVPB 11/14/19 14:00 11/17/19 13:59 11/15/19 14:08 Clonidine HCl (Catapres TTS-1) 1 patch QWEEK TDERMAL 11/15/19 14:00 02/13/20 13:59 11/15/19 15:13 Clonidine HCl (Catapres Tab) 0.1 mg Q4H PRN ORAL For High Blood Pressure 11/14/19 07:15 02/09/20 15:11 Dextrose (Dextrose 50%) 25 ml Q30M PRN IV Hypoglycemia 11/14/19 07:15 02/06/20 21:44 Dextrose (Dextrose 50%) 50 ml Q30M PRN IV Hypoglycemia 11/14/19 07:15 02/06/20 21:44 Docusate Sodium (Colace) 100 mg THREE TIMES A DAY ORAL 11/16/19 09:00 12/16/19 08:59 Epoetin Mohit (Epoetin Mohit-EPBX(NON ESRD)) 6,000 unit SUN-SUN-SUN SUBQ 11/14/19 21:00 02/08/20 20:59 11/14/19 22:30 Finasteride (Proscar) 5 mg DAILY ORAL 11/14/19 09:00 02/07/20 08:59 11/15/19 08:56 Hydralazine HCl (Apresoline) 25 mg BID ORAL 11/15/19 09:00 02/13/20 08:59 11/15/19 08:56 Insulin Aspart (NovoLOG) BEFORE MEALS AND HS SUBQ 11/14/19 11:30 02/07/20 22:59 11/14/19 22:33 Insulin Detemir (Levemir) 14 units Q24H SUBQ 11/14/19 09:00 02/07/20 08:59 11/16/19 09:04 Mirtazapine (Remeron) 7.5 mg BEDTIME ORAL 11/14/19 21:00 02/06/20 22:59 11/15/19 20:40 Nateglinide (Starlix) 120 mg THREE TIMES A DAY ORAL 11/14/19 09:00 12/09/19 08:59 11/15/19 14:05 Nifedipine (Procardia XL) 90 mg DAILY ORAL 11/15/19 09:00 12/15/19 08:59 11/15/19 08:56 Sodium Chloride 1,000 ml @ 50 mls/hr Q20H IV 11/14/19 22:15 12/14/19 22:14 11/15/19 18:45 Tamsulosin HCl (Flomax) 0.4 mg BID ORAL 11/14/19 09:00 12/09/19 20:59 11/15/19 08:57 Laboratory Tests 11/16/19 04:00: White Blood Count 8.9, Red Blood Count 2.85L, Hemoglobin 8.1L, Hematocrit 24.7L , Mean Corpuscular Volume 87, Mean Corpuscular Hemoglobin 28.4, Mean Corpuscular Hemoglobin Concent 32.8, Red Cell Distribution Width 12.3, Platelet Count 205, Mean Platelet Volume 5.0L, Neutrophils (%) (Auto) , Lymphocytes (%) ( Auto) , Monocytes (%) (Auto) , Eosinophils (%) (Auto) , Basophils (%) (Auto) , Prothrombin Time 11.0, Prothromb Time International Ratio 1.0, Sodium Level 144 , Potassium Level 4.5, Chloride Level 109H, Carbon Dioxide Level 20L, Anion Gap 15, Blood Urea Nitrogen 40H, Creatinine 2.9H, Estimat Glomerular Filtration Rate 25.0, Glucose Level 212H, Calcium Level 8.0L, Phosphorus Level 3.6, Magnesium Level 2.1, Iron Level 17L, Total Iron Binding Capacity 144L, Percent Iron Saturation 12L, Unsaturated Iron Binding 127, Total Bilirubin 0.5, Aspartate Amino Transf (AST/SGOT) 55H, Alanine Aminotransferase (ALT/SGPT) 36, Alkaline Phosphatase 50, Total Protein 6.9, Albumin 2.5L, Globulin 4.4, Albumin/ Globulin Ratio 0.6L, Vitamin B12 Level 1631H, Folate 13.6 Height (Feet): 5 Height (Inches): 10.00 Weight (Pounds): 196 General Appearance: no apparent distress, lethargic Cardiovascular: tachycardia Respiratory/Chest: decreased breath sounds Abdomen: distended Objective No change Rodrigue Mackenzie MD November 16, 2019 10:22
--- NOTE | 2019-11-16 10:25 | NUR ---
NURSE NOTES: Received call from [employer] stating that patient's result for COVID-[address] Miranda who is at the nurse's station. Addendum: 11/16/19 at 1052 by MICHELLE SAL RN NURSE NOTES: Received call from [employer] again stating that patient's result for COVID-[address] Miranda present at nurse's station was notified
--- NOTE | 2019-11-16 11:33 | Infectious Diseases Prog Note ---
Assessment/Plan Assessment/Plan IMPRESSION: E. coli UTI COVID19 pneumonia worsening diabetes mellitus, hypertension, anemia, Right eye glaucoma. Acute renal failure RECOMMENDATION: Continue ceftriaxone. Family agree with Hydroxychloroquine if symptoms are worse F/U CXR Poor prognosis Will f/u COVID19 test Subjective ROS Limited/Unobtainable: Yes Constitutional: Reports: fever, other - Ho=436.7 Gastrointestinal/Abdominal: Reports: other - NPO Neurologic: Reports: other - lethargic Allergies: Coded Allergies: No Known Allergies (Unverified , 05/27/15) Objective Vital Signs Last 24 Hour Vital Signs Date Time Temp Pulse Resp B/P (MAP) Pulse Ox O2 Delivery O2 Flow Rate FiO2 11/16/19 09:00 83 144/63 11/16/19 09:00 83 144/63 11/16/19 09:00 144/63 11/16/19 09:00 Non-Rebreather 15.0 11/16/19 08:00 97.9 83 18 144/63 (90) 98 11/16/19 07:48 74 11/16/19 06:33 101.0 11/16/19 06:30 101.0 11/16/19 06:00 101.7 11/16/19 04:00 99.7 107 20 160/80 (106) 100 11/16/19 04:00 Non-Rebreather 15.0 11/16/19 03:54 77 11/16/19 00:00 Non-Rebreather 15.0 11/16/19 00:00 97.9 103 20 159/83 (108) 100 11/15/19 23:32 84 11/15/19 20:40 91 174/78 11/15/19 20:00 Non-Rebreather 15.0 11/15/19 20:00 98.7 105 24 177/86 (116) 100 11/15/19 19:03 87 11/15/19 16:00 99.1 91 18 174/78 (110) 100 11/15/19 15:20 97 11/15/19 15:13 148/61 11/15/19 12:00 107 11/15/19 12:00 97.7 103 20 182/77 (112) 100 Height (Feet): 5 Height (Inches): 10.00 Weight (Pounds): 196 HEENT: mucous membranes moist Respiratory/Chest: other - oxygen by mask Cardiovascular: normal rate Abdomen: soft, non tender Neurologic/Psychiatric: other - lethargic Laboratory Tests Test 11/16/19 04:00 White Blood Count 8.9 K/UL (4.8-10.8) Red Blood Count 2.85 M/UL (4.70-6.10) L Hemoglobin 8.1 G/DL (14.2-18.0) L Hematocrit 24.7 % (42.0-52.0) L Mean Corpuscular Volume 87 FL (80-99) Mean Corpuscular Hemoglobin 28.4 PG (27.0-31.0) Mean Corpuscular Hemoglobin Concent 32.8 G/DL (32.0-36.0) Red Cell Distribution Width 12.3 % (11.6-14.8) Platelet Count 205 K/UL (150-450) Mean Platelet Volume 5.0 FL (6.5-10.1) L Neutrophils (%) (Auto) % (45.0-75.0) Lymphocytes (%) (Auto) % (20.0-45.0) Monocytes (%) (Auto) % (1.0-10.0) Eosinophils (%) (Auto) % (0.0-3.0) Basophils (%) (Auto) % (0.0-2.0) Prothrombin Time 11.0 SEC (9.30-11.50) Prothromb Time International Ratio 1.0 (0.9-1.1) Sodium Level 144 MMOL/L (136-145) Potassium Level 4.5 MMOL/L (3.5-5.1) Chloride Level 109 MMOL/L (98-107) H Carbon Dioxide Level 20 MMOL/L (21-32) L Anion Gap 15 mmol/L (5-15) Blood Urea Nitrogen 40 mg/dL (7-18) H Creatinine 2.9 MG/DL (0.55-1.30) H Estimat Glomerular Filtration Rate 25.0 mL/min (>60) Glucose Level 212 MG/DL (74-106) H Calcium Level 8.0 MG/DL (8.5-10.1) L Phosphorus Level 3.6 MG/DL (2.5-4.9) Magnesium Level 2.1 MG/DL (1.8-2.4) Iron Level 17 ug/dL (50-175) L Total Iron Binding Capacity 144 ug/dL (250-450) L Percent Iron Saturation 12 % (15-50) L Unsaturated Iron Binding 127 ug/dL (112-346) Ferritin 949 NG/ML (8-388) H Total Bilirubin 0.5 MG/DL (0.2-1.0) Aspartate Amino Transf (AST/SGOT) 55 U/L (15-37) H Alanine Aminotransferase (ALT/SGPT) 36 U/L (12-78) Alkaline Phosphatase 50 U/L (46-116) Total Protein 6.9 G/DL (6.4-8.2) Albumin 2.5 G/DL (3.4-5.0) L Globulin 4.4 g/dL Albumin/Globulin Ratio 0.6 (1.0-2.7) L Vitamin B12 Level 1631 PG/ML (193-986) H Folate 13.6 NG/ML (8.6-58.9) Current Medications Medications (Trade) Dose Ordered Sig/Mayank Route PRN Reason Start Time Stop Time Status Last Admin Dose Admin Acetaminophen (Tylenol) 500 mg Q4H PRN ORAL Mild Pain/Temp >100.5 11/14/19 09:45 12/08/19 21:44 Acetaminophen (Tylenol) 650 mg Q4H PRN RECTAL Mild Pain (Pain Scale 1-3) 11/14/19 07:45 12/13/19 19:44 11/16/19 06:00 Aspirin (Ecotrin) 81 mg DAILY ORAL 11/14/19 09:00 12/27/19 08:59 11/15/19 08:57 Atorvastatin Calcium (Lipitor) 20 mg BEDTIME ORAL 11/14/19 21:00 02/10/20 20:59 11/15/19 20:39 Bethanechol Chloride (Urecholine) 25 mg THREE TIMES A DAY ORAL 11/14/19 09:00 12/09/19 08:59 11/15/19 14:05 Carvedilol (Coreg) 12.5 mg EVERY 12 HOURS ORAL 11/15/19 21:00 12/15/19 20:59 11/15/19 20:40 Ceftriaxone Sodium 1 gm/ Dextrose 55 ml @ 110 mls/hr Q24H IVPB 11/14/19 14:00 11/17/19 13:59 11/15/19 14:08 Clonidine HCl (Catapres TTS-1) 1 patch QWEEK TDERMAL 11/15/19 14:00 02/13/20 13:59 11/15/19 15:13 Clonidine HCl (Catapres Tab) 0.1 mg Q4H PRN ORAL For High Blood Pressure 11/14/19 07:15 02/09/20 15:11 Dextrose (Dextrose 50%) 25 ml Q30M PRN IV Hypoglycemia 11/14/19 07:15 02/06/20 21:44 Dextrose (Dextrose 50%) 50 ml Q30M PRN IV Hypoglycemia 11/14/19 07:15 02/06/20 21:44 Docusate Sodium (Colace) 100 mg THREE TIMES A DAY ORAL 11/16/19 09:00 12/16/19 08:59 Epoetin Mohit (Epoetin Mohit-EPBX(NON ESRD)) 6,000 unit SUN-SUN-SUN SUBQ 11/14/19 21:00 02/08/20 20:59 11/14/19 22:30 Finasteride (Proscar) 5 mg DAILY ORAL 11/14/19 09:00 02/07/20 08:59 11/15/19 08:56 Hydralazine HCl (Apresoline) 25 mg BID ORAL 11/15/19 09:00 02/13/20 08:59 11/15/19 08:56 Insulin Aspart (NovoLOG) BEFORE MEALS AND HS SUBQ 11/14/19 11:30 02/07/20 22:59 11/14/19 22:33 Insulin Detemir (Levemir) 14 units Q24H SUBQ 11/14/19 09:00 02/07/20 08:59 11/16/19 09:04 Mirtazapine (Remeron) 7.5 mg BEDTIME ORAL 11/14/19 21:00 02/06/20 22:59 11/15/19 20:40 Nateglinide (Starlix) 120 mg THREE TIMES A DAY ORAL 11/14/19 09:00 12/09/19 08:59 11/15/19 14:05 Nifedipine (Procardia XL) 90 mg DAILY ORAL 11/15/19 09:00 12/15/19 08:59 11/15/19 08:56 Sodium Chloride 1,000 ml @ 50 mls/hr Q20H IV 11/14/19 22:15 12/14/19 22:14 11/15/19 18:45 Tamsulosin HCl (Flomax) 0.4 mg BID ORAL 11/14/19 09:00 12/09/19 20:59 11/15/19 08:57 Viktor Miranda MD November 16, 2019 11:33
[2019-11-16 12:00] VITALS: BP 139/68
--- NOTE | 2019-11-16 12:16 | NUR ---
NURSE NOTES: Patient remains NPO until NG-tube is inserted. Only 2 units of Novolog subQ was given for coverage. Will continue to monitor.
[2019-11-16] MEDS: cefTRIAXone 1 GM in D5W 55 ML IVPB SCH (14:44)
[2019-11-16 16:00] VITALS: BP 162/69
--- NOTE | 2019-11-16 17:14 | Pulmonology Progress Note ---
Assessment/Plan Assessment/Plan IMPRESSION: 1. Fever. Resolved 2. Positive COVID-19 pneumonia. 3. Multiple medical problems. 4. worsening oxygenation 5. Worsening renal failure DISCUSSION: Continue current medications and care. Broad spectrum antibiotics. I will follow as race starter. Has positive COVID-19. Worsening oxygenation CXR fairly clear Bill Westfall M.D. Subjective ROS Limited/Unobtainable: Yes Interval Events: Doing poorly; now on NRBM; keeps taking mask off Constitutional: Reports: no symptoms, other - Tm=394.7 HEENT: Repors: no symptoms Respiratory: Reports: shortness of breath Cardiovascular: Reports: no symptoms Gastrointestinal/Abdominal: Reports: other - NPO Genitourinary: Reports: no symptoms Allergies: Coded Allergies: No Known Allergies (Unverified , 05/27/15) Objective Last 24 Hour Vital Signs Date Time Temp Pulse Resp B/P (MAP) Pulse Ox O2 Delivery O2 Flow Rate FiO2 11/16/19 16:00 81 11/16/19 16:00 100.8 87 20 162/69 (100) 100 11/16/19 12:00 98.1 79 20 139/68 (91) 100 11/16/19 11:51 79 11/16/19 09:00 83 144/63 11/16/19 09:00 83 144/63 11/16/19 09:00 144/63 11/16/19 09:00 Non-Rebreather 15.0 11/16/19 08:00 97.9 83 18 144/63 (90) 98 11/16/19 07:48 74 11/16/19 06:33 101.0 11/16/19 06:30 101.0 11/16/19 06:00 101.7 11/16/19 04:00 99.7 107 20 160/80 (106) 100 11/16/19 04:00 Non-Rebreather 15.0 11/16/19 03:54 77 11/16/19 00:00 Non-Rebreather 15.0 11/16/19 00:00 97.9 103 20 159/83 (108) 100 11/15/19 23:32 84 11/15/19 20:40 91 174/78 11/15/19 20:00 Non-Rebreather 15.0 11/15/19 20:00 98.7 105 24 177/86 (116) 100 11/15/19 19:03 87 Intake and Output 11/15/19 11/16/19 19:00 07:00 Intake Total 500 ml 650 ml Output Total 600 ml 700 ml Balance -100 ml -50 ml Intake Oral 100 ml IV Total 500 ml 550 ml Output Urine Total 600 ml 700 ml General Appearance: no acute distress HEENT: mucous membranes moist Respiratory/Chest: chest wall non-tender, lungs clear Cardiovascular: normal peripheral pulses Abdomen: soft, non tender Extremities: no edema Neurologic/Psychiatric: other - lethargic Laboratory Tests 11/16/19 04:00: White Blood Count 8.9, Red Blood Count 2.85L, Hemoglobin 8.1L, Hematocrit 24.7L , Mean Corpuscular Volume 87, Mean Corpuscular Hemoglobin 28.4, Mean Corpuscular Hemoglobin Concent 32.8, Red Cell Distribution Width 12.3, Platelet Count 205, Mean Platelet Volume 5.0L, Neutrophils (%) (Auto) , Lymphocytes (%) ( Auto) , Monocytes (%) (Auto) , Eosinophils (%) (Auto) , Basophils (%) (Auto) , Prothrombin Time 11.0, Prothromb Time International Ratio 1.0, Sodium Level 144 , Potassium Level 4.5, Chloride Level 109H, Carbon Dioxide Level 20L, Anion Gap 15, Blood Urea Nitrogen 40H, Creatinine 2.9H, Estimat Glomerular Filtration Rate 25.0, Glucose Level 212H, Calcium Level 8.0L, Phosphorus Level 3.6, Magnesium Level 2.1, Iron Level 17L, Total Iron Binding Capacity 144L, Percent Iron Saturation 12L, Unsaturated Iron Binding 127, Ferritin 949H, Total Bilirubin 0.5, Aspartate Amino Transf (AST/SGOT) 55H, Alanine Aminotransferase ( ALT/SGPT) 36, Alkaline Phosphatase 50, Total Protein 6.9, Albumin 2.5L, Globulin 4.4, Albumin/Globulin Ratio 0.6L, Vitamin B12 Level 1631H, Folate 13.6 Current Medications Medications (Trade) Dose Ordered Sig/Mayank Route PRN Reason Start Time Stop Time Status Last Admin Dose Admin Acetaminophen (Tylenol) 500 mg Q4H PRN ORAL Mild Pain/Temp >100.5 11/14/19 09:45 12/08/19 21:44 Acetaminophen (Tylenol) 650 mg Q4H PRN RECTAL Mild Pain (Pain Scale 1-3) 11/14/19 07:45 12/13/19 19:44 11/16/19 06:00 Aspirin (Ecotrin) 81 mg DAILY ORAL 11/14/19 09:00 12/27/19 08:59 11/15/19 08:57 Atorvastatin Calcium (Lipitor) 20 mg BEDTIME ORAL 11/14/19 21:00 02/10/20 20:59 11/15/19 20:39 Bethanechol Chloride (Urecholine) 25 mg THREE TIMES A DAY ORAL 11/14/19 09:00 12/09/19 08:59 11/15/19 14:05 Carvedilol (Coreg) 12.5 mg EVERY 12 HOURS ORAL 11/15/19 21:00 12/15/19 20:59 11/15/19 20:40 Ceftriaxone Sodium 1 gm/ Dextrose 55 ml @ 110 mls/hr Q24H IVPB 11/14/19 14:00 11/17/19 13:59 11/16/19 14:44 Clonidine HCl (Catapres TTS-1) 1 patch QWEEK TDERMAL 11/15/19 14:00 02/13/20 13:59 11/15/19 15:13 Clonidine HCl (Catapres Tab) 0.1 mg Q4H PRN ORAL For High Blood Pressure 11/14/19 07:15 02/09/20 15:11 Dextrose (Dextrose 50%) 25 ml Q30M PRN IV Hypoglycemia 11/14/19 07:15 02/06/20 21:44 Dextrose (Dextrose 50%) 50 ml Q30M PRN IV Hypoglycemia 11/14/19 07:15 02/06/20 21:44 Docusate Sodium (Colace) 100 mg THREE TIMES A DAY ORAL 11/16/19 09:00 12/16/19 08:59 Epoetin Mohit (Epoetin Mohit-EPBX(NON ESRD)) 6,000 unit SUN-SUN-SUN SUBQ 11/14/19 21:00 02/08/20 20:59 11/14/19 22:30 Finasteride (Proscar) 5 mg DAILY ORAL 11/14/19 09:00 02/07/20 08:59 11/15/19 08:56 Hydralazine HCl (Apresoline) 25 mg BID ORAL 11/15/19 09:00 02/13/20 08:59 11/15/19 08:56 Insulin Aspart (NovoLOG) BEFORE MEALS AND HS SUBQ 11/14/19 11:30 02/07/20 22:59 11/16/19 12:06 Insulin Detemir (Levemir) 14 units Q24H SUBQ 11/14/19 09:00 02/07/20 08:59 11/16/19 09:04 Mirtazapine (Remeron) 7.5 mg BEDTIME ORAL 11/14/19 21:00 02/06/20 22:59 11/15/19 20:40 Nateglinide (Starlix) 120 mg THREE TIMES A DAY ORAL 11/14/19 09:00 12/09/19 08:59 11/15/19 14:05 Nifedipine (Procardia XL) 90 mg DAILY ORAL 11/15/19 09:00 12/15/19 08:59 11/15/19 08:56 Sodium Chloride 1,000 ml @ 50 mls/hr Q20H IV 11/14/19 22:15 12/14/19 22:14 11/16/19 14:45 Tamsulosin HCl (Flomax) 0.4 mg BID ORAL 11/14/19 09:00 12/09/19 20:59 11/15/19 08:57 Bill Westfall MD November 16, 2019 17:14
--- NOTE | 2019-11-16 18:38 | Hematology/Onc Progress Note ---
Assessment/Plan Assessment/Plan Assess/Recs: # Pancytopenia -- initially with Anemia of chronic disease due to underlying chronic medical issues, multifactorial, also covie19 related, noted also with uti and sepsis --> Anemia workup has been ordered spep neg, ferritin is 117 --> No evidence of hemolysis is noted, peripheral smear has been reviewed. --> Hgb goal >7. Transfuse prn. --> Epogen or iron at this time is not particularly indicated --> Medications have been reviewed --> plt 136-->138-->139-->205 --> hgb 7.7-->8.1 --> wbc 3.6-->5-->8.9 --> CT of abdomen pelvis without contrast read by radiology showed bladder thickening and possible cystitis prior admission --> as per id recs # COIV19++ Fever with cough --> covid+ --> iso --> as per id --> on ctx # MISAEL on ckd --> as per renal team # DM nephropathy # BPH # Hypokalemia --> replete with k as needed The timing of this note does not necessarily reflect the time of the patient was seen. Greatly appreciate consultation! Subjective Allergies: Coded Allergies: No Known Allergies (Unverified , 05/27/15) Subjective 11/09 labs reviewed, no bleeding, meds noted, seen by cards, cbc pendin 11/10 labs noted, no bleeding, serology neg, supportive care for covid19 11/11 bp high, hydralazine given overnight, on mirtaazapine, no changes 11/12 on a nrb, no bleeding, meds noted, no night sweats 11/13 blood was given yesterday, overnight, no traction, no night sweats 11/15 sdu, nrb, temp 101, labs reviewed, on cftx Objective Objective Current Medications Medications (Trade) Dose Ordered Sig/Mayank Route PRN Reason Start Time Stop Time Status Last Admin Dose Admin Acetaminophen (Tylenol) 500 mg Q4H PRN ORAL Mild Pain/Temp >100.5 11/14/19 09:45 12/08/19 21:44 Acetaminophen (Tylenol) 650 mg Q4H PRN RECTAL Mild Pain (Pain Scale 1-3) 11/14/19 07:45 12/13/19 19:44 5/20 06:00 Aspirin (Ecotrin) 81 mg DAILY ORAL 11/14/19 09:00 12/27/19 08:59 11/15/19 08:57 Atorvastatin Calcium (Lipitor) 20 mg BEDTIME ORAL 11/14/19 21:00 02/10/20 20:59 11/15/19 20:39 Bethanechol Chloride (Urecholine) 25 mg THREE TIMES A DAY ORAL 11/14/19 09:00 12/09/19 08:59 11/15/19 14:05 Carvedilol (Coreg) 12.5 mg EVERY 12 HOURS ORAL 11/15/19 21:00 12/15/19 20:59 11/15/19 20:40 Ceftriaxone Sodium 1 gm/ Dextrose 55 ml @ 110 mls/hr Q24H IVPB 11/14/19 14:00 11/17/19 13:59 11/16/19 14:44 Clonidine HCl (Catapres TTS-1) 1 patch QWEEK TDERMAL 11/15/19 14:00 02/13/20 13:59 11/15/19 15:13 Clonidine HCl (Catapres Tab) 0.1 mg Q4H PRN ORAL For High Blood Pressure 11/14/19 07:15 02/09/20 15:11 Dextrose (Dextrose 50%) 25 ml Q30M PRN IV Hypoglycemia 11/14/19 07:15 02/06/20 21:44 Dextrose (Dextrose 50%) 50 ml Q30M PRN IV Hypoglycemia 11/14/19 07:15 02/06/20 21:44 Docusate Sodium (Colace) 100 mg THREE TIMES A DAY ORAL 11/16/19 09:00 12/16/19 08:59 Epoetin Mohit (Epoetin Mohit-EPBX(NON ESRD)) 6,000 unit SUN-SUN-SUN SUBQ 11/14/19 21:00 02/08/20 20:59 11/14/19 22:30 Finasteride (Proscar) 5 mg DAILY ORAL 11/14/19 09:00 02/07/20 08:59 11/15/19 08:56 Hydralazine HCl (Apresoline) 25 mg BID ORAL 11/15/19 09:00 02/13/20 08:59 11/15/19 08:56 Insulin Aspart (NovoLOG) BEFORE MEALS AND HS SUBQ 11/14/19 11:30 02/07/20 22:59 11/16/19 12:06 Insulin Detemir (Levemir) 14 units Q24H SUBQ 11/14/19 09:00 02/07/20 08:59 11/16/19 09:04 Mirtazapine (Remeron) 7.5 mg BEDTIME ORAL 11/14/19 21:00 02/06/20 22:59 11/15/19 20:40 Nateglinide (Starlix) 120 mg THREE TIMES A DAY ORAL 11/14/19 09:00 12/09/19 08:59 11/15/19 14:05 Nifedipine (Procardia XL) 90 mg DAILY ORAL 11/15/19 09:00 12/15/19 08:59 11/15/19 08:56 Sodium Chloride 1,000 ml @ 50 mls/hr Q20H IV 11/14/19 22:15 12/14/19 22:14 11/16/19 14:45 Tamsulosin HCl (Flomax) 0.4 mg BID ORAL 11/14/19 09:00 12/09/19 20:59 11/15/19 08:57 Last 24 Hour Vital Signs Date Time Temp Pulse Resp B/P (MAP) Pulse Ox O2 Delivery O2 Flow Rate FiO2 11/16/19 18:00 162/69 11/16/19 16:00 81 11/16/19 16:00 100.8 87 20 162/69 (100) 100 11/16/19 12:00 98.1 79 20 139/68 (91) 100 11/16/19 11:51 79 11/16/19 09:00 83 144/63 11/16/19 09:00 83 144/63 11/16/19 09:00 144/63 11/16/19 09:00 Non-Rebreather 15.0 11/16/19 08:00 97.9 83 18 144/63 (90) 98 11/16/19 07:48 74 11/16/19 06:33 101.0 11/16/19 06:30 101.0 11/16/19 06:00 101.7 11/16/19 04:00 99.7 107 20 160/80 (106) 100 11/16/19 04:00 Non-Rebreather 15.0 11/16/19 03:54 77 11/16/19 00:00 Non-Rebreather 15.0 11/16/19 00:00 97.9 103 20 159/83 (108) 100 11/15/19 23:32 84 11/15/19 20:40 91 174/78 11/15/19 20:00 Non-Rebreather 15.0 11/15/19 20:00 98.7 105 24 177/86 (116) 100 11/15/19 19:03 87 11/15/19 16:00 99.1 91 18 174/78 (110) 100 11/15/19 15:20 97 11/15/19 15:13 148/61 11/15/19 12:00 107 11/15/19 12:00 97.7 103 20 182/77 (112) 100 11/15/19 09:00 Non-Rebreather 15.0 11/15/19 08:56 88 179/86 11/15/19 08:56 179/86 11/15/19 08:56 88 179/86 11/15/19 08:00 99.5 88 21 179/86 (117) 100 11/15/19 08:00 83 11/15/19 04:00 100.9 94 20 163/82 (109) 100 11/15/19 04:00 90 11/15/19 00:52 147 55/100 11/15/19 00:00 98 11/15/19 00:00 98.6 82 18 145/59 (87) 100 11/14/19 22:07 132/67 11/14/19 21:00 Non-Rebreather 15.0 11/14/19 19:59 98.8 99 23 132/67 (88) 100 11/14/19 19:37 94 Intake and Output 11/15/19 11/16/19 19:00 07:00 Intake Total 500 ml 650 ml Output Total 600 ml 700 ml Balance -100 ml -50 ml Intake Oral 100 ml IV Total 500 ml 550 ml Output Urine Total 600 ml 700 ml Labs Test 11/14/19 08:50 11/15/19 06:45 11/16/19 04:00 White Blood Count 9.2 K/UL (4.8-10.8) 7.6 K/UL (4.8-10.8) 8.9 K/UL (4.8-10.8) Red Blood Count 2.98 M/UL (4.70-6.10) 2.92 M/UL (4.70-6.10) 2.85 M/UL (4.70-6.10) Hemoglobin 8.6 G/DL (14.2-18.0) 8.4 G/DL (14.2-18.0) 8.1 G/DL (14.2-18.0) Hematocrit 25.6 % (42.0-52.0) 24.8 % (42.0-52.0) 24.7 % (42.0-52.0) Mean Corpuscular Volume 86 FL (80-99) 85 FL (80-99) 87 FL (80-99) Mean Corpuscular Hemoglobin 28.8 PG (27.0-31.0) 28.7 PG (27.0-31.0) 28.4 PG (27.0-31.0) Mean Corpuscular Hemoglobin Concent 33.5 G/DL (32.0-36.0) 33.7 G/DL (32.0-36.0) 32.8 G/DL (32.0-36.0) Red Cell Distribution Width 12.5 % (11.6-14.8) 12.4 % (11.6-14.8) 12.3 % (11.6-14.8) Platelet Count 158 K/UL (150-450) 182 K/UL (150-450) 205 K/UL (150-450) Mean Platelet Volume 6.9 FL (6.5-10.1) 7.2 FL (6.5-10.1) 5.0 FL (6.5-10.1) Neutrophils (%) (Auto) % (45.0-75.0) 83.2 % (45.0-75.0) % (45.0-75.0) Lymphocytes (%) (Auto) % (20.0-45.0) 8.9 % (20.0-45.0) % (20.0-45.0) Monocytes (%) (Auto) % (1.0-10.0) 7.4 % (1.0-10.0) % (1.0-10.0) Eosinophils (%) (Auto) % (0.0-3.0) 0.1 % (0.0-3.0) % (0.0-3.0) Basophils (%) (Auto) % (0.0-2.0) 0.4 % (0.0-2.0) % (0.0-2.0) Differential Total Cells Counted 100 Neutrophils % (Manual) 87 % (45-75) Lymphocytes % (Manual) 6 % (20-45) Monocytes % (Manual) 7 % (1-10) Eosinophils % (Manual) 0 % (0-3) Basophils % (Manual) 0 % (0-2) Band Neutrophils 0 % (0-8) Platelet Estimate Adequate Platelet Morphology Normal Sodium Level 141 MMOL/L (136-145) 141 MMOL/L (136-145) 144 MMOL/L (136-145) Potassium Level 4.1 MMOL/L (3.5-5.1) 3.9 MMOL/L (3.5-5.1) 4.5 MMOL/L (3.5-5.1) Chloride Level 107 MMOL/L (98-107) 107 MMOL/L (98-107) 109 MMOL/L (98-107) Carbon Dioxide Level 20 MMOL/L (21-32) 21 MMOL/L (21-32) 20 MMOL/L (21-32) Anion Gap 14 mmol/L (5-15) 13 mmol/L (5-15) 15 mmol/L (5-15) Blood Urea Nitrogen 37 mg/dL (7-18) 39 mg/dL (7-18) 40 mg/dL (7-18) Creatinine 3.1 MG/DL (0.55-1.30) 2.9 MG/DL (0.55-1.30) 2.9 MG/DL (0.55-1.30) Estimat Glomerular Filtration Rate 23.1 mL/min (>60) 25.0 mL/min (>60) 25.0 mL/min (>60) Glucose Level 196 MG/DL (74-106) 130 MG/DL (74-106) 212 MG/DL (74-106) Uric Acid 6.4 MG/DL (2.6-7.2) Calcium Level 7.7 MG/DL (8.5-10.1) 7.9 MG/DL (8.5-10.1) 8.0 MG/DL (8.5-10.1) Phosphorus Level 4.3 MG/DL (2.5-4.9) 3.3 MG/DL (2.5-4.9) 3.6 MG/DL (2.5-4.9) Magnesium Level 1.9 MG/DL (1.8-2.4) 2.1 MG/DL (1.8-2.4) 2.1 MG/DL (1.8-2.4) Total Bilirubin 0.4 MG/DL (0.2-1.0) 0.5 MG/DL (0.2-1.0) 0.5 MG/DL (0.2-1.0) Aspartate Amino Transf (AST/SGOT) 44 U/L (15-37) 48 U/L (15-37) 55 U/L (15-37) Alanine Aminotransferase (ALT/SGPT) 26 U/L (12-78) 18 U/L (12-78) 36 U/L (12-78) Alkaline Phosphatase 50 U/L (46-116) 43 U/L (46-116) 50 U/L (46-116) C-Reactive Protein, Quantitative 19.9 mg/dL (0.00-0.90) 28.7 mg/dL (0.00-0.90) Pro-B-Type Natriuretic Peptide 3420 pg/mL (0-125) 5660 pg/mL (0-125) Total Protein 7.1 G/DL (6.4-8.2) 6.8 G/DL (6.4-8.2) 6.9 G/DL (6.4-8.2) Albumin 2.9 G/DL (3.4-5.0) 2.7 G/DL (3.4-5.0) 2.5 G/DL (3.4-5.0) Globulin 4.2 g/dL 4.1 g/dL 4.4 g/dL Albumin/Globulin Ratio 0.7 (1.0-2.7) 0.7 (1.0-2.7) 0.6 (1.0-2.7) Prothrombin Time 11.0 SEC (9.30-11.50) Prothromb Time International Ratio 1.0 (0.9-1.1) Iron Level 17 ug/dL (50-175) Total Iron Binding Capacity 144 ug/dL (250-450) Percent Iron Saturation 12 % (15-50) Unsaturated Iron Binding 127 ug/dL (112-346) Ferritin 949 NG/ML (8-388) Vitamin B12 Level 1631 PG/ML (193-986) Folate 13.6 NG/ML (8.6-58.9) Height (Feet): 5 Height (Inches): 10.00 Weight (Pounds): 196 Objective vitals: noted ENT: dry mucus membranes Neck: limited range of motion Respiratory: decreased breath sounds nrm+++ Cardiovascular: normal peripheral pulses, rrr Gastrointestinal: normal bowel sounds, soft, tenderness - suprapubic Musculoskeletal: decreased range of motion Neurologic: normal inspection, alert, responsive Psychiatric: normal inspection Skin: normal inspection, normal color Cesar Singh MD November 16, 2019 18:38
--- NOTE | 2019-11-16 18:45 | NUR ---
NURSE NOTES: Temperature of 100.8F, cooling measures initiated. Rechecked temperature and it went up to 101.1F. Tylenol 650mg rectal was given.
--- NOTE | 2019-11-16 19:25 | NUR ---
NURSE NOTES: Received report from BENOIT Jolley. Patient asleep, afebrile and has no respiratory distress noted. On NRB at 15lpm with Sa02 of 100% intact. With Right wrist 20g IV line intact and asymptomatic. With condom catheter to urine bag draining well. Bed rails are up. Head of bed elevated
--- NOTE | 2019-11-16 19:32 | NUR ---
HAND-OFF: Report given to BENOIT Bojorquez and BENOIT PEREZ.
[2019-11-16 20:00] VITALS: BP 160/63
--- NOTE | 2019-11-16 21:21 | Cardiology Progress Note ---
Assessment/Plan Assessment/Plan 1. Non-sustained ventricular tachycardia, keep Mg level at 2.1, increase coreg. 2. Elevated troponin I level in this patient likely acute HFpEF in view of CKD, HTN and age. Continue ASA and statins. 3. Severe with HERMINIO at 0.8 cm2. Avoid potent diuretics. 4. DM, continue ASA and statins. 5. Hypertension secondary renal parenchymal disease, well controlled, continue hydralazine, nifedipine and clonidine patch. 6. CKD. 7. COVID-19 pneumonia on Ceftriaxone. Subjective Subjective Sinus rhythm at rate of 85. Objective Last 24 Hour Vital Signs Date Time Temp Pulse Resp B/P (MAP) Pulse Ox O2 Delivery O2 Flow Rate FiO2 11/16/19 20:00 100.4 85 20 160/63 (95) 100 11/16/19 19:12 84 11/16/19 19:06 100.4 11/16/19 18:00 162/69 11/16/19 16:00 81 11/16/19 16:00 100.8 87 20 162/69 (100) 100 11/16/19 12:00 98.1 79 20 139/68 (91) 100 11/16/19 11:51 79 11/16/19 09:00 83 144/63 11/16/19 09:00 83 144/63 11/16/19 09:00 144/63 11/16/19 09:00 Non-Rebreather 15.0 11/16/19 08:00 97.9 83 18 144/63 (90) 98 11/16/19 07:48 74 11/16/19 06:33 101.0 11/16/19 06:00 101.7 11/16/19 04:00 99.7 107 20 160/80 (106) 100 11/16/19 04:00 Non-Rebreather 15.0 11/16/19 03:54 77 11/16/19 00:00 Non-Rebreather 15.0 11/16/19 00:00 97.9 103 20 159/83 (108) 100 11/15/19 23:32 84 Intake and Output 11/15/19 11/16/19 19:00 07:00 Intake Total 500 ml 700 ml Output Total 600 ml 700 ml Balance -100 ml 0 ml Intake Oral 100 ml IV Total 500 ml 600 ml Output Urine Total 600 ml 700 ml 2D Echo: EF 55%, HERMINIO 0.8cm2, RVSP 48, mod MR, Mild AR/AK, Grade I LVDD Laboratory Tests Test 11/16/19 04:00 White Blood Count 8.9 K/UL (4.8-10.8) Red Blood Count 2.85 M/UL (4.70-6.10) L Hemoglobin 8.1 G/DL (14.2-18.0) L Hematocrit 24.7 % (42.0-52.0) L Mean Corpuscular Volume 87 FL (80-99) Mean Corpuscular Hemoglobin 28.4 PG (27.0-31.0) Mean Corpuscular Hemoglobin Concent 32.8 G/DL (32.0-36.0) Red Cell Distribution Width 12.3 % (11.6-14.8) Platelet Count 205 K/UL (150-450) Mean Platelet Volume 5.0 FL (6.5-10.1) L Neutrophils (%) (Auto) % (45.0-75.0) Lymphocytes (%) (Auto) % (20.0-45.0) Monocytes (%) (Auto) % (1.0-10.0) Eosinophils (%) (Auto) % (0.0-3.0) Basophils (%) (Auto) % (0.0-2.0) Prothrombin Time 11.0 SEC (9.30-11.50) Prothromb Time International Ratio 1.0 (0.9-1.1) Sodium Level 144 MMOL/L (136-145) Potassium Level 4.5 MMOL/L (3.5-5.1) Chloride Level 109 MMOL/L (98-107) H Carbon Dioxide Level 20 MMOL/L (21-32) L Anion Gap 15 mmol/L (5-15) Blood Urea Nitrogen 40 mg/dL (7-18) H Creatinine 2.9 MG/DL (0.55-1.30) H Estimat Glomerular Filtration Rate 25.0 mL/min (>60) Glucose Level 212 MG/DL (74-106) H Calcium Level 8.0 MG/DL (8.5-10.1) L Phosphorus Level 3.6 MG/DL (2.5-4.9) Magnesium Level 2.1 MG/DL (1.8-2.4) Iron Level 17 ug/dL (50-175) L Total Iron Binding Capacity 144 ug/dL (250-450) L Percent Iron Saturation 12 % (15-50) L Unsaturated Iron Binding 127 ug/dL (112-346) Ferritin 949 NG/ML (8-388) H Total Bilirubin 0.5 MG/DL (0.2-1.0) Aspartate Amino Transf (AST/SGOT) 55 U/L (15-37) H Alanine Aminotransferase (ALT/SGPT) 36 U/L (12-78) Alkaline Phosphatase 50 U/L (46-116) Total Protein 6.9 G/DL (6.4-8.2) Albumin 2.5 G/DL (3.4-5.0) L Globulin 4.4 g/dL Albumin/Globulin Ratio 0.6 (1.0-2.7) L Vitamin B12 Level 1631 PG/ML (193-986) H Folate 13.6 NG/ML (8.6-58.9) Objective HEENT: Atraumatic and normocephalic. Anicteric. Pupils are equal, round, and reactive to light and accommodation. Extraocular muscles intact. NECK: JVP less than 5 cm. No carotid bruit. Carotid upstrokes 2+ bilaterally. CARDIOVASCULAR: Normal S1, S2. Regular rate and rhythm. 2/6 ESM at LSB, gallops, or rubs. PMI is at fourth intercostal space at the midclavicular line. LUNGS: Bibasilar crackles with diminished both lungs. ABDOMEN: Soft, nontender, nondistended. No hepatosplenomegaly. Positive bowel sounds. EXTREMITIES: No evidence of edema, clubbing, or cyanosis. Dick Payan MD November 16, 2019 21:20
[2019-11-16] MEDS: Atorvastatin 20mg tab ORAL SCH (21:28)
--- NOTE | 2019-11-16 22:19 | General Progress Note ---
Assessment/Plan Problem List: (1) Sepsis ICD Codes: A41.9 - Sepsis, unspecified organism SNOMED: 68728735 (2) Diabetes ICD Codes: E11.9 - Type 2 diabetes mellitus without complications SNOMED: 44997198 (3) BPH (benign prostatic hyperplasia) ICD Codes: N40.0 - Benign prostatic hyperplasia without lower urinary tract symptoms SNOMED: 715824457 (4) Anemia ICD Codes: D64.9 - Anemia, unspecified SNOMED: 190972281 (5) Acute on chronic renal failure ICD Codes: N17.9 - Acute kidney failure, unspecified; N18.9 - Chronic kidney disease, unspecified SNOMED: 295739454 (6) Fever ICD Codes: R50.9 - Fever, unspecified SNOMED: 035239825 Qualifiers: Qualified Codes: R50.9 - Fever, unspecified (7) Suspected COVID-19 virus infection ICD Codes: Z20.828 - Contact with and (suspected) exposure to other viral communicable diseases SNOMED: 858180052 (8) UTI (urinary tract infection) ICD Codes: N39.0 - Urinary tract infection, site not specified SNOMED: 04341350 Qualifiers: Qualified Codes: N39.0 - Urinary tract infection, site not specified (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 SNOMED: 55983625, 318349431 (10) Hypertension ICD Codes: I10 - Essential (primary) hypertension SNOMED: 77353557 Status: progressing Assessment/Plan: malnutrition poor intake no wheezing not hypoxic cri sepsis abx per id not improving encephalopathy uti pna hs intermittent fever is covid positive pna Subjective ROS Limited/Unobtainable: Yes Allergies: Coded Allergies: No Known Allergies (Unverified , 05/27/15) Objective Last 24 Hour Vital Signs Date Time Temp Pulse Resp B/P (MAP) Pulse Ox O2 Delivery O2 Flow Rate FiO2 11/16/19 21:00 Non-Rebreather 15.0 11/16/19 20:00 100.4 85 20 160/63 (95) 100 11/16/19 19:12 84 11/16/19 19:06 100.4 11/16/19 18:00 162/69 11/16/19 16:00 81 11/16/19 16:00 100.8 87 20 162/69 (100) 100 11/16/19 12:00 98.1 79 20 139/68 (91) 100 11/16/19 11:51 79 11/16/19 09:00 83 144/63 11/16/19 09:00 83 144/63 11/16/19 09:00 144/63 11/16/19 09:00 Non-Rebreather 15.0 11/16/19 08:00 97.9 83 18 144/63 (90) 98 11/16/19 07:48 74 11/16/19 06:33 101.0 11/16/19 06:00 101.7 11/16/19 04:00 99.7 107 20 160/80 (106) 100 11/16/19 04:00 Non-Rebreather 15.0 11/16/19 03:54 77 11/16/19 00:00 Non-Rebreather 15.0 11/16/19 00:00 97.9 103 20 159/83 (108) 100 11/15/19 23:32 84 Intake and Output 11/15/19 11/16/19 19:00 07:00 Intake Total 500 ml 700 ml Output Total 600 ml 700 ml Balance -100 ml 0 ml Intake Oral 100 ml IV Total 500 ml 600 ml Output Urine Total 600 ml 700 ml Laboratory Tests 11/16/19 04:00: White Blood Count 8.9, Red Blood Count 2.85L, Hemoglobin 8.1L, Hematocrit 24.7L , Mean Corpuscular Volume 87, Mean Corpuscular Hemoglobin 28.4, Mean Corpuscular Hemoglobin Concent 32.8, Red Cell Distribution Width 12.3, Platelet Count 205, Mean Platelet Volume 5.0L, Neutrophils (%) (Auto) , Lymphocytes (%) ( Auto) , Monocytes (%) (Auto) , Eosinophils (%) (Auto) , Basophils (%) (Auto) , Prothrombin Time 11.0, Prothromb Time International Ratio 1.0, Sodium Level 144 , Potassium Level 4.5, Chloride Level 109H, Carbon Dioxide Level 20L, Anion Gap 15, Blood Urea Nitrogen 40H, Creatinine 2.9H, Estimat Glomerular Filtration Rate 25.0, Glucose Level 212H, Calcium Level 8.0L, Phosphorus Level 3.6, Magnesium Level 2.1, Iron Level 17L, Total Iron Binding Capacity 144L, Percent Iron Saturation 12L, Unsaturated Iron Binding 127, Ferritin 949H, Total Bilirubin 0.5, Aspartate Amino Transf (AST/SGOT) 55H, Alanine Aminotransferase ( ALT/SGPT) 36, Alkaline Phosphatase 50, Total Protein 6.9, Albumin 2.5L, Globulin 4.4, Albumin/Globulin Ratio 0.6L, Vitamin B12 Level 1631H, Folate 13.6 Height (Feet): 5 Height (Inches): 10.00 Weight (Pounds): 196 Aliyah Miller MD November 16, 2019 22:19
--- NOTE | 2019-11-16 23:48 | NUR ---
NURSE NOTES: Pt was unable to swallow pills. BP of 163/72, in high-lyman's position. SR on air sampling and monitoring. On non-rebreather mask, 15L, sat at 100%. Will continue to monitor.
[2019-11-17] VITALS (7 sets, daily range): BP systolic 131–163; BP diastolic 63–79
--- NOTE | 2019-11-17 00:10 | NUR ---
NURSE NOTES: notified and new prn order received and carried out. Will continue to monitor. Pt calm and lying in the bed. No acute change noted.
[2019-11-17] MEDS: Acetaminophen 650 MG SUPP RECTAL PRN ×3 (04:06→13:10)
[2019-11-17] MEDS: NovoLOG Insulin Flexpen SUBQ SCH ×4 (05:40→21:00)
--- NOTE | 2019-11-17 07:11 | NUR ---
HAND-OFF: Report given to BENOIT Berg. Pt stable, asleep and has no respiratory distress noted.
--- NOTE | 2019-11-17 07:20 | NUR ---
NURSE NOTES: Received report from [place] and BENOIT PEREZ. The patient is resting on the bed but has labored breathing with abdominal breathing. The patient's bed in the lowest position, call light in reach, and fall and aspiration precaution reinforced. IV site on R FA 20G intact and patent and running IVF per order. The patient is on 15L non-rebreather for oxygen therapy, and oxygen saturation within normal range. The patient has condom cath that is intact and draining by gravity. Will follow up the lab. Will continue plan of care.
[2019-11-17 07:27] LABS: HEMATOCRIT 26.2 % (42.0-52.0); HEMOGLOBIN 8.7 G/DL (14.2-18.0); MEAN CORPUSCULAR VOLUME 87 FL (80-99); PLATELET COUNT 264 K/UL (150-450); RED BLOOD COUNT 3.03 M/UL (4.70-6.10); RED CELL DISTRIBUTION WIDTH 12.7 % (11.6-14.8); WHITE BLOOD COUNT 9.7 K/UL (4.8-10.8)
[2019-11-17 07:30] LABS: ANION GAP 14 mmol/L (5-15); BLOOD UREA NITROGEN 41 mg/dL (7-18); CALCIUM 8.5 MG/DL (8.5-10.1); CARBON DIOXIDE 21 MMOL/L (21-32); CHLORIDE 111 MMOL/L (98-107); CREATININE 2.7 MG/DL (0.55-1.30); POTASSIUM 4.2 MMOL/L (3.5-5.1); SODIUM 146 MMOL/L (136-145)
--- NOTE | 2019-11-17 08:30 | NUR ---
NURSE NOTES: Vital signs noted. Administered Tylenol via rectum for fever. The patient is still on 15L non rebreather. Unable to swallow PO medication at this time. Notified Dr. Brown regarding NPO status and changed IVF from 0.45% NS to D5 0.45%NS @ 50mL/hr. Will administer per order. Will continue plan of care.
[2019-11-17] MEDS: HydrALAZINE 25mg tab ORAL SCH ×3 (08:58→16:45)
[2019-11-17] MEDS: Docusate 100mg/10ml Liq ORAL SCH ×3 (08:59→16:46)
[2019-11-17] MEDS: Carvedilol 25mg Tab ORAL SCH ×3 (08:59→22:07)
[2019-11-17] MEDS: Tamsulosin 0.4mg cap ORAL SCH ×2 (08:59→16:46)
[2019-11-17] MEDS: Aspirin EC 81mg tab ORAL SCH (08:59)
[2019-11-17] MEDS: Bethanechol 25mg Tab ORAL SCH ×3 (09:00→16:46)
[2019-11-17] MEDS ORDERED: D5 1/2NS 1,000 ML IV SCH (09:00)
--- NOTE | 2019-11-17 09:00 | NUR ---
NURSE NOTES: Paged Dr. Westfall regarding abnormal ABG result. Awaiting for call back. Will closely monitor the patient. Will continue plan of care.
--- NOTE | 2019-11-17 09:30 | NUR ---
NURSE NOTES: Informed Dr. Brown regarding failed NGT insertion and needs GI to insert new NGT. Dr. Brown wants the primary nurse to prepare Dobbhoff. Ordered and brought Dobbhotami to the bedside. Will wait Dr. Brown for insertion. Will continue plan of care.
--- NOTE | 2019-11-17 10:11 | Nephrology Progress Note ---
Assessment/Plan Problem List: (1) Acute on chronic renal failure Assessment: Serum creatinine rising (2) BPH (benign prostatic hyperplasia) (3) Anemia (4) Sepsis (5) COVID-19 virus detected Assessment Mr. Melton is admitted with pneumonia and UTI and exposure to COVID-19 virus, and the test is positive From renal standpoint of view: Acute on chronic renal failure: Serum creatinine has risen from baseline of 1.6- 2.5 Diabetic nephropathy BPH Anemia Hypertension Plan Positive for COVID-19 Serum creatinine pito , but seems to be stabilizing and declining, Creatinine down to 2.7 today Kidney ultrasound results noted adjust blood pressure medication as the blood pressure has been fluctuating Slow hydration and 1 bolus of albumin Kidney ultrasound results noted Monitor renal parameters Avoid nephrotoxic's Flomax twice daily Antibiotics per ID Will review the 2D echocardiogram and ultrasound which was done previously Per orders Subjective ROS Limited/Unobtainable: No Constitutional: Reports: malaise, weakness Objective Objective Last 24 Hour Vital Signs Date Time Temp Pulse Resp B/P (MAP) Pulse Ox O2 Delivery O2 Flow Rate FiO2 11/17/19 08:59 83 131/79 11/17/19 08:59 83 131/79 11/17/19 08:58 131/79 11/17/19 07:40 101.5 83 18 131/79 (96) 100 11/17/19 04:36 100.4 11/17/19 04:00 102.0 97 18 161/71 (101) 100 11/17/19 03:54 165/76 11/17/19 03:30 95 11/17/19 00:20 173/80 11/17/19 00:03 100.4 11/17/19 00:00 100.4 81 18 163/72 (102) 100 11/17/19 00:00 82 11/16/19 23:32 175/83 11/16/19 21:00 Non-Rebreather 15.0 11/16/19 20:00 100.4 85 20 160/63 (95) 100 11/16/19 19:12 84 11/16/19 18:00 162/69 11/16/19 16:00 81 11/16/19 16:00 100.8 87 20 162/69 (100) 100 11/16/19 12:00 98.1 79 20 139/68 (91) 100 11/16/19 11:51 79 Intake and Output 11/16/19 11/17/19 19:00 07:00 Intake Total 600 ml 600 ml Output Total 550 ml 400 ml Balance 50 ml 200 ml IV Total 600 ml 600 ml Output Urine Total 550 ml 400 ml Laboratory Tests 11/17/19 06:41: White Blood Count 9.7, Red Blood Count 3.03L, Hemoglobin 8.7L, Hematocrit 26.2L , Mean Corpuscular Volume 87, Mean Corpuscular Hemoglobin 28.7, Mean Corpuscular Hemoglobin Concent 33.2, Red Cell Distribution Width 12.7, Platelet Count 264, Mean Platelet Volume 5.7L, Neutrophils (%) (Auto) , Lymphocytes (%) ( Auto) , Monocytes (%) (Auto) , Eosinophils (%) (Auto) , Basophils (%) (Auto) , Differential Total Cells Counted 100, Neutrophils % (Manual) 90H, Lymphocytes % (Manual) 2L, Monocytes % (Manual) 8, Eosinophils % (Manual) 0, Basophils % ( Manual) 0, Band Neutrophils 0, Platelet Estimate Adequate, Platelet Morphology Normal, Hypochromasia 2+, Anisocytosis 1+, Sodium Level 146H, Potassium Level 4.2, Chloride Level 111H, Carbon Dioxide Level 21, Anion Gap 14, Blood Urea Nitrogen 41H, Creatinine 2.7H, Estimat Glomerular Filtration Rate 27.1, Glucose Level 133H, Calcium Level 8.5 11/17/19 08:41: Arterial Blood pH 7.277L, Arterial Blood Partial Pressure CO2 41.9, Arterial Blood Partial Pressure O2 200.0H, Arterial Blood HCO3 19.1L, Arterial Blood Oxygen Saturation 98.9, Arterial Blood Base Excess -7.2L, Dc Test Positive Height (Feet): 5 Height (Inches): 10.00 Weight (Pounds): 196 General Appearance: no apparent distress, lethargic Cardiovascular: tachycardia - Rate in 80s Respiratory/Chest: decreased breath sounds Objective No change Rodrigue Mackenzie MD November 17, 2019 10:11
[2019-11-17] MEDS: Levemir Flexpen SUBQ SCH (10:26)
--- NOTE | 2019-11-17 10:27 | Diagnostic Imaging Report ---
Indication: Shortness of breath Technique: One view of the chest Comparison: For 30 2020 Findings: There are increased bilateral peripheral hazy infiltrates demonstrated. There may be a small left pleural effusion. The heart is upper limits of normal in size. Impression: Increased bilateral peripheral hazy infiltrates, over 4 days
--- NOTE | 2019-11-17 10:40 | NUR ---
NURSE NOTES: Dr. Westfall at the bedside assessed the patient. Notified Dr. Westfall regarding abnormal ABG. Dr. Westafll ordered to change oxygen therapy from 15L non-rebreather to Bipap with setting of 16/6 FiO2 100%. Informed RT regarding Dr. Westfall's order. Will closely monitor the patient.
--- NOTE | 2019-11-17 10:44 | NUR ---
RADIOLOGY DEPT., CHEST X-RAY DONE.-P.DYE
--- NOTE | 2019-11-17 10:54 | Hematology/Onc Progress Note ---
Assessment/Plan Assessment/Plan Assess/Recs: # Pancytopenia -- initially with Anemia of chronic disease due to underlying chronic medical issues, multifactorial, also covie19 related, noted also with uti and sepsis --> Anemia workup has been ordered spep neg, ferritin is 117 --> No evidence of hemolysis is noted, peripheral smear has been reviewed. --> Hgb goal >7. Transfuse prn. --> Epogen or iron at this time is not particularly indicated --> Medications have been reviewed --> plt 136-->138-->139-->205 --> hgb 7.7-->8.1 -->8.7 --> wbc 3.6-->5-->8.9 --> CT of abdomen pelvis without contrast read by radiology showed bladder thickening and possible cystitis prior admission --> as per id recs # [id number]++ Fever with cough --> covid+ --> iso --> as per id --> on ctx --> on bipap # MISAEL on ckd --> as per renal team # DM nephropathy # BPH # Hypokalemia --> replete with k as needed The timing of this note does not necessarily reflect the time of the patient was seen. Greatly appreciate consultation! Subjective HEENT: Denies: no symptoms, eye pain, blurred vision, tearing, double vision, ear pain, ear discharge, nose pain, nose congestion, throat pain, throat swelling, mouth pain, mouth swelling, other Cardiovascular: Denies: no symptoms, chest pain, edema, irregular heart rate, lightheadedness, palpitations, syncope, other Respiratory: Denies: no symptoms, cough, shortness of breath, SOB with excertion, SOB at rest, sputum, wheezing, other Gastrointestinal/Abdominal: Denies: no symptoms, abdomen distended, abdominal pain, black stools, tarry stools, blood in stool, constipated, diarrhea, difficulty swallowing, nausea, poor appetite, poor fluid intake, rectal bleeding , vomiting, other Genitourinary: Denies: no symptoms, burning, discharge, frequency, flank pain, hematuria, incontinence, pain, urgency, other Neurologic/Psychiatric: Denies: no symptoms, anxiety, depressed, emotional problems, headache, numbness, paresthesia, pre-existing deficit, seizure, tingling, tremors, weakness, other Endocrine: Denies: no symptoms, excessive sweating, flushing, intolerance to cold, intolerance to heat, increased hunger, increased thirst, increased urine, unexplained weight gain, unexplained weight loss, other Allergies: Coded Allergies: No Known Allergies (Unverified , 05/27/15) Subjective 11/09 labs reviewed, no bleeding, meds noted, seen by cards, cbc pendin 11/10 labs noted, no bleeding, serology neg, supportive care for covid19 11/11 bp high, hydralazine given overnight, on mirtaazapine, no changes 11/12 on a nrb, no bleeding, meds noted, no night sweats 11/13 blood was given yesterday, overnight, no traction, no night sweats 11/15 sdu, nrb, temp 101, labs reviewed, on cftx 11/16 labs are reviewed, no bleeding, fm changed to bipap, hgb 8.7 Objective Objective Current Medications Medications (Trade) Dose Ordered Sig/Mayank Route PRN Reason Start Time Stop Time Status Last Admin Dose Admin Acetaminophen (Tylenol) 500 mg Q4H PRN ORAL Mild Pain/Temp >100.5 11/14/19 09:45 12/08/19 21:44 11/16/19 23:33 Acetaminophen (Tylenol) 650 mg Q4H PRN RECTAL Mild Pain (Pain Scale 1-3) 11/14/19 07:45 12/13/19 19:44 11/17/19 08:57 Aspirin (Ecotrin) 81 mg DAILY ORAL 11/14/19 09:00 12/27/19 08:59 11/15/19 08:57 Atorvastatin Calcium (Lipitor) 20 mg BEDTIME ORAL 11/14/19 21:00 02/10/20 20:59 11/16/19 21:28 Bethanechol Chloride (Urecholine) 25 mg THREE TIMES A DAY ORAL 11/14/19 09:00 12/09/19 08:59 11/15/19 14:05 Carvedilol (Coreg) 25 mg EVERY 12 HOURS ORAL 11/17/19 09:00 12/17/19 08:59 Ceftriaxone Sodium 1 gm/ Dextrose 55 ml @ 110 mls/hr Q24H IVPB 11/14/19 14:00 11/17/19 13:59 11/16/19 14:44 Clonidine HCl (Catapres TTS-1) 1 patch QWEEK TDERMAL 11/15/19 14:00 02/13/20 13:59 11/15/19 15:13 Clonidine HCl (Catapres Tab) 0.1 mg Q4H PRN ORAL For High Blood Pressure 11/14/19 07:15 02/09/20 15:11 11/16/19 23:32 Dextrose (Dextrose 50%) 25 ml Q30M PRN IV Hypoglycemia 11/14/19 07:15 02/06/20 21:44 Dextrose (Dextrose 50%) 50 ml Q30M PRN IV Hypoglycemia 11/14/19 07:15 02/06/20 21:44 Dextrose/Sodium Chloride 1,000 ml @ 50 mls/hr Q20H IV 11/17/19 09:00 12/17/19 08:59 11/17/19 08:47 Docusate Sodium (Colace) 100 mg THREE TIMES A DAY ORAL 11/16/19 09:00 12/16/19 08:59 Epoetin Mohit (Epoetin Mohit-EPBX(NON ESRD)) 6,000 unit SUN-SUN-SUN SUBQ 11/14/19 21:00 02/08/20 20:59 11/14/19 22:30 Finasteride (Proscar) 5 mg DAILY ORAL 11/14/19 09:00 02/07/20 08:59 11/15/19 08:56 Hydralazine HCl (Apresoline) 10 mg Q2HR PRN IV sbp>160 mmhg 11/17/19 00:15 02/15/20 00:14 11/17/19 03:54 Hydralazine HCl (Apresoline) 25 mg TID ORAL 11/17/19 09:00 02/15/20 08:59 Insulin Aspart (NovoLOG) BEFORE MEALS AND HS SUBQ 11/14/19 11:30 02/07/20 22:59 11/16/19 12:06 Insulin Detemir (Levemir) 14 units Q24H SUBQ 11/14/19 09:00 02/07/20 08:59 11/17/19 10:26 Mirtazapine (Remeron) 7.5 mg BEDTIME ORAL 11/14/19 21:00 02/06/20 22:59 11/16/19 21:28 Nateglinide (Starlix) 120 mg THREE TIMES A DAY ORAL 11/14/19 09:00 12/09/19 08:59 11/15/19 14:05 Nifedipine (Procardia XL) 90 mg DAILY ORAL 11/15/19 09:00 12/15/19 08:59 11/15/19 08:56 Tamsulosin HCl (Flomax) 0.4 mg BID ORAL 11/14/19 09:00 12/09/19 20:59 11/15/19 08:57 Last 24 Hour Vital Signs Date Time Temp Pulse Resp B/P (MAP) Pulse Ox O2 Delivery O2 Flow Rate FiO2 11/17/19 08:59 83 131/79 11/17/19 08:59 83 131/79 11/17/19 08:58 131/79 11/17/19 07:40 101.5 83 18 131/79 (96) 100 11/17/19 04:36 100.4 11/17/19 04:00 102.0 97 18 161/71 (101) 100 11/17/19 03:54 165/76 11/17/19 03:30 95 11/17/19 00:20 173/80 11/17/19 00:03 100.4 11/17/19 00:00 100.4 81 18 163/72 (102) 100 11/17/19 00:00 82 11/16/19 23:32 175/83 11/16/19 21:00 Non-Rebreather 15.0 11/16/19 20:00 100.4 85 20 160/63 (95) 100 11/16/19 19:12 84 11/16/19 18:00 162/69 11/16/19 16:00 81 11/16/19 16:00 100.8 87 20 162/69 (100) 100 11/16/19 12:00 98.1 79 20 139/68 (91) 100 11/16/19 11:51 79 11/16/19 09:00 83 144/63 11/16/19 09:00 83 144/63 11/16/19 09:00 144/63 11/16/19 09:00 Non-Rebreather 15.0 11/16/19 08:00 97.9 83 18 144/63 (90) 98 11/16/19 07:48 74 5/3/20 06:33 101.0 11/16/19 06:00 101.7 11/16/19 04:00 99.7 107 20 160/80 (106) 100 11/16/19 04:00 Non-Rebreather 15.0 11/16/19 03:54 77 11/16/19 00:00 Non-Rebreather 15.0 11/16/19 00:00 97.9 103 20 159/83 (108) 100 11/15/19 23:32 84 11/15/19 20:40 91 174/78 11/15/19 20:00 Non-Rebreather 15.0 11/15/19 20:00 98.7 105 24 177/86 (116) 100 11/15/19 19:03 87 11/15/19 16:00 99.1 91 18 174/78 (110) 100 11/15/19 15:20 97 11/15/19 15:13 148/61 11/15/19 12:00 107 11/15/19 12:00 97.7 103 20 182/77 (112) 100 Intake and Output 11/16/19 11/17/19 19:00 07:00 Intake Total 600 ml 600 ml Output Total 550 ml 400 ml Balance 50 ml 200 ml IV Total 600 ml 600 ml Output Urine Total 550 ml 400 ml Labs Test 11/15/19 06:45 11/16/19 04:00 11/17/19 06:41 11/17/19 08:41 White Blood Count 7.6 K/UL (4.8-10.8) 8.9 K/UL (4.8-10.8) 9.7 K/UL (4.8-10.8) Red Blood Count 2.92 M/UL (4.70-6.10) 2.85 M/UL (4.70-6.10) 3.03 M/UL (4.70-6.10) Hemoglobin 8.4 G/DL (14.2-18.0) 8.1 G/DL (14.2-18.0) 8.7 G/DL (14.2-18.0) Hematocrit 24.8 % (42.0-52.0) 24.7 % (42.0-52.0) 26.2 % (42.0-52.0) Mean Corpuscular Volume 85 FL (80-99) 87 FL (80-99) 87 FL (80-99) Mean Corpuscular Hemoglobin 28.7 PG (27.0-31.0) 28.4 PG (27.0-31.0) 28.7 PG (27.0-31.0) Mean Corpuscular Hemoglobin Concent 33.7 G/DL (32.0-36.0) 32.8 G/DL (32.0-36.0) 33.2 G/DL (32.0-36.0) Red Cell Distribution Width 12.4 % (11.6-14.8) 12.3 % (11.6-14.8) 12.7 % (11.6-14.8) Platelet Count 182 K/UL (150-450) 205 K/UL (150-450) 264 K/UL (150-450) Mean Platelet Volume 7.2 FL (6.5-10.1) 5.0 FL (6.5-10.1) 5.7 FL (6.5-10.1) Neutrophils (%) (Auto) 83.2 % (45.0-75.0) % (45.0-75.0) % (45.0-75.0) Lymphocytes (%) (Auto) 8.9 % (20.0-45.0) % (20.0-45.0) % (20.0-45.0) Monocytes (%) (Auto) 7.4 % (1.0-10.0) % (1.0-10.0) % (1.0-10.0) Eosinophils (%) (Auto) 0.1 % (0.0-3.0) % (0.0-3.0) % (0.0-3.0) Basophils (%) (Auto) 0.4 % (0.0-2.0) % (0.0-2.0) % (0.0-2.0) Sodium Level 141 MMOL/L (136-145) 144 MMOL/L (136-145) 146 MMOL/L (136-145) Potassium Level 3.9 MMOL/L (3.5-5.1) 4.5 MMOL/L (3.5-5.1) 4.2 MMOL/L (3.5-5.1) Chloride Level 107 MMOL/L (98-107) 109 MMOL/L (98-107) 111 MMOL/L (98-107) Carbon Dioxide Level 21 MMOL/L (21-32) 20 MMOL/L (21-32) 21 MMOL/L (21-32) Anion Gap 13 mmol/L (5-15) 15 mmol/L (5-15) 14 mmol/L (5-15) Blood Urea Nitrogen 39 mg/dL (7-18) 40 mg/dL (7-18) 41 mg/dL (7-18) Creatinine 2.9 MG/DL (0.55-1.30) 2.9 MG/DL (0.55-1.30) 2.7 MG/DL (0.55-1.30) Estimat Glomerular Filtration Rate 25.0 mL/min (>60) 25.0 mL/min (>60) 27.1 mL/min (>60) Glucose Level 130 MG/DL (74-106) 212 MG/DL (74-106) 133 MG/DL (74-106) Calcium Level 7.9 MG/DL (8.5-10.1) 8.0 MG/DL (8.5-10.1) 8.5 MG/DL (8.5-10.1) Phosphorus Level 3.3 MG/DL (2.5-4.9) 3.6 MG/DL (2.5-4.9) Magnesium Level 2.1 MG/DL (1.8-2.4) 2.1 MG/DL (1.8-2.4) Total Bilirubin 0.5 MG/DL (0.2-1.0) 0.5 MG/DL (0.2-1.0) Aspartate Amino Transf (AST/SGOT) 48 U/L (15-37) 55 U/L (15-37) Alanine Aminotransferase (ALT/SGPT) 18 U/L (12-78) 36 U/L (12-78) Alkaline Phosphatase 43 U/L (46-116) 50 U/L (46-116) C-Reactive Protein, Quantitative 28.7 mg/dL (0.00-0.90) Pro-B-Type Natriuretic Peptide 5660 pg/mL (0-125) Total Protein 6.8 G/DL (6.4-8.2) 6.9 G/DL (6.4-8.2) Albumin 2.7 G/DL (3.4-5.0) 2.5 G/DL (3.4-5.0) Globulin 4.1 g/dL 4.4 g/dL Albumin/Globulin Ratio 0.7 (1.0-2.7) 0.6 (1.0-2.7) Prothrombin Time 11.0 SEC (9.30-11.50) Prothromb Time International Ratio 1.0 (0.9-1.1) Iron Level 17 ug/dL (50-175) Total Iron Binding Capacity 144 ug/dL (250-450) Percent Iron Saturation 12 % (15-50) Unsaturated Iron Binding 127 ug/dL (112-346) Ferritin 949 NG/ML (8-388) Vitamin B12 Level 1631 PG/ML (193-986) Folate 13.6 NG/ML (8.6-58.9) Differential Total Cells Counted 100 Neutrophils % (Manual) 90 % (45-75) Lymphocytes % (Manual) 2 % (20-45) Monocytes % (Manual) 8 % (1-10) Eosinophils % (Manual) 0 % (0-3) Basophils % (Manual) 0 % (0-2) Band Neutrophils 0 % (0-8) Platelet Estimate Adequate Platelet Morphology Normal Hypochromasia 2+ Anisocytosis 1+ Arterial Blood pH 7.277 (7.350-7.450) Arterial Blood Partial Pressure CO2 41.9 mmHg (35.0-45.0) Arterial Blood Partial Pressure O2 200.0 mmHg (75.0-100.0) Arterial Blood HCO3 19.1 mmol/L (22.0-26.0) Arterial Blood Oxygen Saturation 98.9 % (95-100) Arterial Blood Base Excess -7.2 (-2-2) Dc Test Positive Height (Feet): 5 Height (Inches): 10.00 Weight (Pounds): 196 Objective vitals: noted ENT: dry mucus membranes Neck: limited range of motion Respiratory: decreased breath sounds nrm+++ Cardiovascular: normal peripheral pulses, rrr Gastrointestinal: normal bowel sounds, soft, tenderness - suprapubic Musculoskeletal: decreased range of motion Neurologic: normal inspection, alert, responsive Psychiatric: normal inspection Skin: normal inspection, normal color Cesar Singh MD November 17, 2019 10:54
--- NOTE | 2019-11-17 11:00 | NUR ---
NURSE NOTES: Dr. Westfall called back for clarification of the order. After having discussion with Dr. Mackenzie, Dr. Westfall would like to keep the patient to be on 15L non rebreather but start on Lasix drip. Inserted new line. Will administer medication per order. Will continue plan of care.
--- NOTE | 2019-11-17 11:50 | Pulmonology Progress Note ---
Assessment/Plan Assessment/Plan IMPRESSION: 1. Fever. Resolved 2. Positive COVID-19 pneumonia. 3. Multiple medical problems. 4. worsening oxygenation 5. Worsening renal failure DISCUSSION: Continue current medications and care. Broad spectrum antibiotics. 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 Has positive COVID-19. Worsening oxygenation CXR shows pulm edema Will initiate lasix gtt Bill Westfall M.D. Subjective ROS Limited/Unobtainable: No Interval Events: Doing poorly; now on NRBM; keeps taking mask off Constitutional: Reports: no symptoms, other - Hz=910.7 HEENT: Repors: no symptoms Respiratory: Reports: shortness of breath Cardiovascular: Reports: no symptoms Gastrointestinal/Abdominal: Reports: other - NPO Genitourinary: Reports: no symptoms Allergies: Coded Allergies: No Known Allergies (Unverified , 05/27/15) Objective Last 24 Hour Vital Signs Date Time Temp Pulse Resp B/P (MAP) Pulse Ox O2 Delivery O2 Flow Rate FiO2 11/17/19 08:59 83 131/79 11/17/19 08:59 83 131/79 11/17/19 08:58 131/79 11/17/19 07:40 101.5 83 18 131/79 (96) 100 11/17/19 04:36 100.4 11/17/19 04:00 102.0 97 18 161/71 (101) 100 11/17/19 03:54 165/76 11/17/19 03:30 95 11/17/19 00:20 173/80 11/17/19 00:03 100.4 11/17/19 00:00 100.4 81 18 163/72 (102) 100 11/17/19 00:00 82 11/16/19 23:32 175/83 11/16/19 21:00 Non-Rebreather 15.0 11/16/19 20:00 100.4 85 20 160/63 (95) 100 11/16/19 19:12 84 11/16/19 18:00 162/69 11/16/19 16:00 81 11/16/19 16:00 100.8 87 20 162/69 (100) 100 11/16/19 12:00 98.1 79 20 139/68 (91) 100 11/16/19 11:51 79 Intake and Output 11/16/19 11/17/19 19:00 07:00 Intake Total 600 ml 600 ml Output Total 550 ml 400 ml Balance 50 ml 200 ml IV Total 600 ml 600 ml Output Urine Total 550 ml 400 ml General Appearance: no acute distress HEENT: mucous membranes moist Respiratory/Chest: chest wall non-tender, lungs clear Cardiovascular: normal peripheral pulses Abdomen: soft, non tender Extremities: no edema Neurologic/Psychiatric: other - lethargic Laboratory Tests 11/17/19 06:41: White Blood Count 9.7, Red Blood Count 3.03L, Hemoglobin 8.7L, Hematocrit 26.2L , Mean Corpuscular Volume 87, Mean Corpuscular Hemoglobin 28.7, Mean Corpuscular Hemoglobin Concent 33.2, Red Cell Distribution Width 12.7, Platelet Count 264, Mean Platelet Volume 5.7L, Neutrophils (%) (Auto) , Lymphocytes (%) ( Auto) , Monocytes (%) (Auto) , Eosinophils (%) (Auto) , Basophils (%) (Auto) , Differential Total Cells Counted 100, Neutrophils % (Manual) 90H, Lymphocytes % (Manual) 2L, Monocytes % (Manual) 8, Eosinophils % (Manual) 0, Basophils % ( Manual) 0, Band Neutrophils 0, Platelet Estimate Adequate, Platelet Morphology Normal, Hypochromasia 2+, Anisocytosis 1+, Sodium Level 146H, Potassium Level 4.2, Chloride Level 111H, Carbon Dioxide Level 21, Anion Gap 14, Blood Urea Nitrogen 41H, Creatinine 2.7H, Estimat Glomerular Filtration Rate 27.1, Glucose Level 133H, Calcium Level 8.5 11/17/19 08:41: Arterial Blood pH 7.277L, Arterial Blood Partial Pressure CO2 41.9, Arterial Blood Partial Pressure O2 200.0H, Arterial Blood HCO3 19.1L, Arterial Blood Oxygen Saturation 98.9, Arterial Blood Base Excess -7.2L, Dc Test Positive Current Medications Medications (Trade) Dose Ordered Sig/Mayank Route PRN Reason Start Time Stop Time Status Last Admin Dose Admin Acetaminophen (Tylenol) 500 mg Q4H PRN ORAL Mild Pain/Temp >100.5 11/14/19 09:45 12/08/19 21:44 11/16/19 23:33 Acetaminophen (Tylenol) 650 mg Q4H PRN RECTAL Mild Pain (Pain Scale 1-3) 11/14/19 07:45 12/13/19 19:44 11/17/19 08:57 Aspirin (Ecotrin) 81 mg DAILY ORAL 11/14/19 09:00 12/27/19 08:59 11/15/19 08:57 Atorvastatin Calcium (Lipitor) 20 mg BEDTIME ORAL 11/14/19 21:00 02/10/20 20:59 11/16/19 21:28 Bethanechol Chloride (Urecholine) 25 mg THREE TIMES A DAY ORAL 11/14/19 09:00 12/09/19 08:59 11/15/19 14:05 Carvedilol (Coreg) 25 mg EVERY 12 HOURS ORAL 11/17/19 09:00 12/17/19 08:59 Ceftriaxone Sodium 1 gm/ Dextrose 55 ml @ 110 mls/hr Q24H IVPB 11/14/19 14:00 11/17/19 13:59 11/16/19 14:44 Clonidine HCl (Catapres TTS-1) 1 patch QWEEK TDERMAL 11/15/19 14:00 02/13/20 13:59 11/15/19 15:13 Clonidine HCl (Catapres Tab) 0.1 mg Q4H PRN ORAL For High Blood Pressure 11/14/19 07:15 02/09/20 15:11 11/16/19 23:32 Dextrose (Dextrose 50%) 25 ml Q30M PRN IV Hypoglycemia 11/14/19 07:15 02/06/20 21:44 Dextrose (Dextrose 50%) 50 ml Q30M PRN IV Hypoglycemia 11/14/19 07:15 02/06/20 21:44 Dextrose/Sodium Chloride 1,000 ml @ 50 mls/hr Q20H IV 11/17/19 09:00 12/17/19 08:59 11/17/19 08:47 Docusate Sodium (Colace) 100 mg THREE TIMES A DAY ORAL 11/16/19 09:00 12/16/19 08:59 Epoetin Mohit (Epoetin Mohit-EPBX(NON ESRD)) 6,000 unit SUN-SUN-SUN SUBQ 11/14/19 21:00 02/08/20 20:59 11/14/19 22:30 Finasteride (Proscar) 5 mg DAILY ORAL 11/14/19 09:00 02/07/20 08:59 11/15/19 08:56 Hydralazine HCl (Apresoline) 10 mg Q2HR PRN IV sbp>160 mmhg 11/17/19 00:15 02/15/20 00:14 11/17/19 03:54 Hydralazine HCl (Apresoline) 25 mg TID ORAL 11/17/19 09:00 02/15/20 08:59 Insulin Aspart (NovoLOG) BEFORE MEALS AND HS SUBQ 11/14/19 11:30 02/07/20 22:59 11/16/19 12:06 Insulin Detemir (Levemir) 14 units Q24H SUBQ 11/14/19 09:00 02/07/20 08:59 11/17/19 10:26 Mirtazapine (Remeron) 7.5 mg BEDTIME ORAL 11/14/19 21:00 02/06/20 22:59 11/16/19 21:28 Nateglinide (Starlix) 120 mg THREE TIMES A DAY ORAL 11/14/19 09:00 12/09/19 08:59 11/15/19 14:05 Nifedipine (Procardia XL) 90 mg DAILY ORAL 11/15/19 09:00 12/15/19 08:59 11/15/19 08:56 Tamsulosin HCl (Flomax) 0.4 mg BID ORAL 11/14/19 09:00 12/09/19 20:59 11/15/19 08:57 Bill Westfall MD November 17, 2019 11:49
--- NOTE | 2019-11-17 12:00 | NUR ---
NURSE NOTES: The patient is stable without acute distress or shortness of breath. Vital signs noted. Will continue plan of care.
--- NOTE | 2019-11-17 12:00 | NUR ---
NURSE NOTES: Notified Dr. Miranda regarding the patient's episode of fever. Dr. Miranda ordered antibiotics. Will continue plan of care.
--- NOTE | 2019-11-17 12:05 | Infectious Diseases Prog Note ---
Assessment/Plan Assessment/Plan IMPRESSION: E. coli UTI COVID19 pneumonia worsening diabetes mellitus, hypertension, anemia, Right eye glaucoma. Acute renal failure RECOMMENDATION: Change ceftriaxone to Zosyn Family agree with Hydroxychloroquine if symptoms are worse Poor prognosis Will f/u COVID19 test Subjective ROS Limited/Unobtainable: Yes Constitutional: Reports: fever, other - In=173 Neurologic: Reports: confusion, other - on restraint Allergies: Coded Allergies: No Known Allergies (Unverified , 05/27/15) Objective Vital Signs Last 24 Hour Vital Signs Date Time Temp Pulse Resp B/P (MAP) Pulse Ox O2 Delivery O2 Flow Rate FiO2 11/17/19 11:50 99.1 92 18 158/69 (98) 100 11/17/19 08:59 83 131/79 11/17/19 08:59 83 131/79 11/17/19 08:58 131/79 11/17/19 07:40 101.5 83 18 131/79 (96) 100 11/17/19 04:36 100.4 11/17/19 04:00 102.0 97 18 161/71 (101) 100 11/17/19 03:54 165/76 11/17/19 03:30 95 11/17/19 00:20 173/80 11/17/19 00:03 100.4 11/17/19 00:00 100.4 81 18 163/72 (102) 100 11/17/19 00:00 82 11/16/19 23:32 175/83 11/16/19 21:00 Non-Rebreather 15.0 11/16/19 20:00 100.4 85 20 160/63 (95) 100 11/16/19 19:12 84 11/16/19 18:00 162/69 11/16/19 16:00 81 11/16/19 16:00 100.8 87 20 162/69 (100) 100 Height (Feet): 5 Height (Inches): 10.00 Weight (Pounds): 196 HEENT: mucous membranes moist Respiratory/Chest: other - Oxyen by mask Cardiovascular: normal rate Abdomen: soft, non tender Neurologic/Psychiatric: disoriented Laboratory Tests Test 11/17/19 06:41 11/17/19 08:41 White Blood Count 9.7 K/UL (4.8-10.8) Red Blood Count 3.03 M/UL (4.70-6.10) L Hemoglobin 8.7 G/DL (14.2-18.0) L Hematocrit 26.2 % (42.0-52.0) L Mean Corpuscular Volume 87 FL (80-99) Mean Corpuscular Hemoglobin 28.7 PG (27.0-31.0) Mean Corpuscular Hemoglobin Concent 33.2 G/DL (32.0-36.0) Red Cell Distribution Width 12.7 % (11.6-14.8) Platelet Count 264 K/UL (150-450) Mean Platelet Volume 5.7 FL (6.5-10.1) L Neutrophils (%) (Auto) % (45.0-75.0) Lymphocytes (%) (Auto) % (20.0-45.0) Monocytes (%) (Auto) % (1.0-10.0) Eosinophils (%) (Auto) % (0.0-3.0) Basophils (%) (Auto) % (0.0-2.0) Differential Total Cells Counted 100 Neutrophils % (Manual) 90 % (45-75) H Lymphocytes % (Manual) 2 % (20-45) L Monocytes % (Manual) 8 % (1-10) Eosinophils % (Manual) 0 % (0-3) Basophils % (Manual) 0 % (0-2) Band Neutrophils 0 % (0-8) Platelet Estimate Adequate Platelet Morphology Normal Hypochromasia 2+ Anisocytosis 1+ Sodium Level 146 MMOL/L (136-145) H Potassium Level 4.2 MMOL/L (3.5-5.1) Chloride Level 111 MMOL/L (98-107) H Carbon Dioxide Level 21 MMOL/L (21-32) Anion Gap 14 mmol/L (5-15) Blood Urea Nitrogen 41 mg/dL (7-18) H Creatinine 2.7 MG/DL (0.55-1.30) H Estimat Glomerular Filtration Rate 27.1 mL/min (>60) Glucose Level 133 MG/DL (74-106) H Calcium Level 8.5 MG/DL (8.5-10.1) Arterial Blood pH 7.277 (7.350-7.450) Arterial Blood Partial Pressure CO2 41.9 mmHg (35.0-45.0) Arterial Blood Partial Pressure O2 200.0 mmHg (75.0-100.0) H Arterial Blood HCO3 19.1 mmol/L (22.0-26.0) L Arterial Blood Oxygen Saturation 98.9 % (95-100) Arterial Blood Base Excess -7.2 (-2-2) L Dc Test Positive Current Medications Medications (Trade) Dose Ordered Sig/Mayank Route PRN Reason Start Time Stop Time Status Last Admin Dose Admin Acetaminophen (Tylenol) 500 mg Q4H PRN ORAL Mild Pain/Temp >100.5 11/14/19 09:45 12/08/19 21:44 11/16/19 23:33 Acetaminophen (Tylenol) 650 mg Q4H PRN RECTAL Mild Pain (Pain Scale 1-3) 11/14/19 07:45 12/13/19 19:44 11/17/19 08:57 Aspirin (Ecotrin) 81 mg DAILY ORAL 11/14/19 09:00 12/27/19 08:59 11/15/19 08:57 Atorvastatin Calcium (Lipitor) 20 mg BEDTIME ORAL 11/14/19 21:00 02/10/20 20:59 11/16/19 21:28 Bethanechol Chloride (Urecholine) 25 mg THREE TIMES A DAY ORAL 11/14/19 09:00 12/09/19 08:59 11/15/19 14:05 Carvedilol (Coreg) 25 mg EVERY 12 HOURS ORAL 11/17/19 09:00 12/17/19 08:59 Ceftriaxone Sodium 1 gm/ Dextrose 55 ml @ 110 mls/hr Q24H IVPB 11/14/19 14:00 11/17/19 13:59 11/16/19 14:44 Clonidine HCl (Catapres TTS-1) 1 patch QWEEK TDERMAL 11/15/19 14:00 02/13/20 13:59 11/15/19 15:13 Clonidine HCl (Catapres Tab) 0.1 mg Q4H PRN ORAL For High Blood Pressure 11/14/19 07:15 02/09/20 15:11 11/16/19 23:32 Dextrose (Dextrose 50%) 25 ml Q30M PRN IV Hypoglycemia 11/14/19 07:15 02/06/20 21:44 Dextrose (Dextrose 50%) 50 ml Q30M PRN IV Hypoglycemia 11/14/19 07:15 02/06/20 21:44 Docusate Sodium (Colace) 100 mg THREE TIMES A DAY ORAL 11/16/19 09:00 12/16/19 08:59 Epoetin Mohit (Epoetin Mohit-EPBX(NON ESRD)) 6,000 unit SUN-SUN-SUN SUBQ 11/14/19 21:00 02/08/20 20:59 11/14/19 22:30 Finasteride (Proscar) 5 mg DAILY ORAL 11/14/19 09:00 02/07/20 08:59 11/15/19 08:56 Furosemide 100 mg/ Dextrose 110 ml @ 8.25 mls/hr [id number] IV 11/17/19 13:00 12/17/19 12:59 Hydralazine HCl (Apresoline) 10 mg Q2HR PRN IV sbp>160 mmhg 11/17/19 00:15 02/15/20 00:14 11/17/19 03:54 Hydralazine HCl (Apresoline) 25 mg TID ORAL 11/17/19 09:00 02/15/20 08:59 Insulin Aspart (NovoLOG) BEFORE MEALS AND HS SUBQ 11/14/19 11:30 02/07/20 22:59 11/16/19 12:06 Insulin Detemir (Levemir) 14 units Q24H SUBQ 11/14/19 09:00 02/07/20 08:59 11/17/19 10:26 Mirtazapine (Remeron) 7.5 mg BEDTIME ORAL 11/14/19 21:00 02/06/20 22:59 11/16/19 21:28 Nateglinide (Starlix) 120 mg THREE TIMES A DAY ORAL 11/14/19 09:00 12/09/19 08:59 11/15/19 14:05 Nifedipine (Procardia XL) 90 mg DAILY ORAL 11/15/19 09:00 12/15/19 08:59 11/15/19 08:56 Tamsulosin HCl (Flomax) 0.4 mg BID ORAL 11/14/19 09:00 12/09/19 20:59 11/15/19 08:57 Viktor Miranda MD November 17, 2019 12:05
--- NOTE | 2019-11-17 12:09 | NUR ---
[employer] orders for Bedside swallow evaluation received and acknowledged. Pt referred s/p: Per Morena LABOY, last night (11/16/19), night RN attempted to administer PO medications, however, Pt observed choking and spit medications out of mouth. Therefore, Pt was made NPO due to concern for aspiration risk and awaiting [employer] swallow evaluation. [employer] attempted to see Pt at bedside, however, Per BENOIT Berg, Pt is not appropriate for [employer] evaluation due to Pt's acute medical condition. [employer] plans to f/u tomorrow to assess Pt's swallowing status and function.
--- NOTE | 2019-11-17 12:56 | General Progress Note ---
Assessment/Plan Status: progressing Assessment/Plan: 1. Hypertension. 2. Diabetes. 3. Anemia. 4. Renal insufficiency. 5. BPH. 6. Dysphagia 7. COVID PNA patient on 100 % non breather fu labs pulm CARE i placed an NGT today pending CXR fu speech will start TF if in proper place Subjective ROS Limited/Unobtainable: No Allergies: Coded Allergies: No Known Allergies (Unverified , 05/27/15) Objective Last 24 Hour Vital Signs Date Time Temp Pulse Resp B/P (MAP) Pulse Ox O2 Delivery O2 Flow Rate FiO2 11/17/19 12:39 158/69 11/17/19 11:50 99.1 92 18 158/69 (98) 100 11/17/19 08:59 83 131/79 11/17/19 08:59 83 131/79 11/17/19 08:58 131/79 11/17/19 07:40 101.5 83 18 131/79 (96) 100 11/17/19 04:36 100.4 11/17/19 04:00 102.0 97 18 161/71 (101) 100 11/17/19 03:54 165/76 11/17/19 03:30 95 11/17/19 00:20 173/80 11/17/19 00:03 100.4 11/17/19 00:00 100.4 81 18 163/72 (102) 100 11/17/19 00:00 82 11/16/19 23:32 175/83 11/16/19 21:00 Non-Rebreather 15.0 11/16/19 20:00 100.4 85 20 160/63 (95) 100 11/16/19 19:12 84 11/16/19 18:00 162/69 11/16/19 16:00 81 11/16/19 16:00 100.8 87 20 162/69 (100) 100 Intake and Output 11/16/19 11/17/19 19:00 07:00 Intake Total 600 ml 600 ml Output Total 550 ml 400 ml Balance 50 ml 200 ml IV Total 600 ml 600 ml Output Urine Total 550 ml 400 ml Laboratory Tests 11/17/19 06:41: White Blood Count 9.7, Red Blood Count 3.03L, Hemoglobin 8.7L, Hematocrit 26.2L , Mean Corpuscular Volume 87, Mean Corpuscular Hemoglobin 28.7, Mean Corpuscular Hemoglobin Concent 33.2, Red Cell Distribution Width 12.7, Platelet Count 264, Mean Platelet Volume 5.7L, Neutrophils (%) (Auto) , Lymphocytes (%) ( Auto) , Monocytes (%) (Auto) , Eosinophils (%) (Auto) , Basophils (%) (Auto) , Differential Total Cells Counted 100, Neutrophils % (Manual) 90H, Lymphocytes % (Manual) 2L, Monocytes % (Manual) 8, Eosinophils % (Manual) 0, Basophils % ( Manual) 0, Band Neutrophils 0, Platelet Estimate Adequate, Platelet Morphology Normal, Hypochromasia 2+, Anisocytosis 1+, Sodium Level 146H, Potassium Level 4.2, Chloride Level 111H, Carbon Dioxide Level 21, Anion Gap 14, Blood Urea Nitrogen 41H, Creatinine 2.7H, Estimat Glomerular Filtration Rate 27.1, Glucose Level 133H, Calcium Level 8.5 11/17/19 08:41: Arterial Blood pH 7.277L, Arterial Blood Partial Pressure CO2 41.9, Arterial Blood Partial Pressure O2 200.0H, Arterial Blood HCO3 19.1L, Arterial Blood Oxygen Saturation 98.9, Arterial Blood Base Excess -7.2L, Dc Test Positive Height (Feet): 5 Height (Inches): 10.00 Weight (Pounds): 196 General Appearance: lethargic EENT: normal ENT inspection Neck: supple Cardiovascular: normal rate Respiratory/Chest: decreased breath sounds Abdomen: normal bowel sounds, non tender, soft Extremities: non-tender Fer Brwon MD November 17, 2019 12:56
[2019-11-17] MEDS: Piperacillin/Tazobactam 3.375 GM in NS 110 ML IVPB SCH (13:09)
--- NOTE | 2019-11-17 13:41 | NUR ---
CASE MANAGEMENT: REVIEW SI: COVID-19 . PNA T 102.0 HR 92 RR 18 BP 173/80 SAT 98% NON-REBREATHER FLOW RATE 15.0 H/H 8.7/26.2 NA 146 BUN 41 CR 2.7 ABG: PH 7.2 PO2 200.0 HCO3 19.1 CXR - INCREASED BILATERAL PERIPHERAL HAZY INFILTRATES IS: FUROSEMIDE 100MG / D5W IV 110ML@8.25ML/HR ZOSYN IV Q12HR TYLENOL 500MG Q4HR PRN STEP DOWN UNIT STATUS DCP: PATIENT IS FROM [facility]. PATIENT WILL NEED SNF PLACEMENT.
--- NOTE | 2019-11-17 15:00 | NUR ---
NURSE NOTES: Notified Dr. Brown regarding wrong placement of Dobbhoff. Dr. Brown ordered to take it out. Carried out the order. Will monitor the patient. Will continue plan of care.
--- NOTE | 2019-11-17 16:06 | Diagnostic Imaging Report ---
Indication: Status post nasogastric tube placement Technique: One view of the chest Comparison: none Findings: There is a weighted feeding tube, tip of which projects at the expected level of a right lower lobe pulmonary bronchus. Included lungs demonstrate bilateral interstitial and airspace disease. The bowel gas pattern is unremarkable Impression: Intrapulmonary placement, within a right lower lobe bronchus, of nasogastric feeding tube. This was discussed by phone with patient's nurse at the time of interpretation, who indicated tube had already been removed
--- NOTE | 2019-11-17 17:20 | General Progress Note ---
Assessment/Plan Problem List: (1) Sepsis ICD Codes: A41.9 - Sepsis, unspecified organism SNOMED: 03225713 (2) Diabetes ICD Codes: E11.9 - Type 2 diabetes mellitus without complications SNOMED: 18683408 (3) BPH (benign prostatic hyperplasia) ICD Codes: N40.0 - Benign prostatic hyperplasia without lower urinary tract symptoms SNOMED: 235794089 (4) Anemia ICD Codes: D64.9 - Anemia, unspecified SNOMED: 643845704 (5) Acute on chronic renal failure ICD Codes: N17.9 - Acute kidney failure, unspecified; N18.9 - Chronic kidney disease, unspecified SNOMED: 580994053 (6) Fever ICD Codes: R50.9 - Fever, unspecified SNOMED: 595539406 Qualifiers: Qualified Codes: R50.9 - Fever, unspecified (7) Suspected COVID-19 virus infection ICD Codes: Z20.828 - Contact with and (suspected) exposure to other viral communicable diseases SNOMED: 558529758 (8) UTI (urinary tract infection) ICD Codes: N39.0 - Urinary tract infection, site not specified SNOMED: 44853180 Qualifiers: Qualified Codes: N39.0 - Urinary tract infection, site not specified (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 SNOMED: 41852712, 654608708 (10) Hypertension ICD Codes: I10 - Essential (primary) hypertension SNOMED: 27663856 Status: progressing Assessment/Plan: not eating has dubhuff intermittent fever confused cri sepsis encephalopathy uti pna hs intermittent fever is covid positive pna Subjective ROS Limited/Unobtainable: Yes Allergies: Coded Allergies: No Known Allergies (Unverified , 05/27/15) Objective Last 24 Hour Vital Signs Date Time Temp Pulse Resp B/P (MAP) Pulse Ox O2 Delivery O2 Flow Rate FiO2 11/17/19 16:45 140/85 11/17/19 12:39 158/69 11/17/19 11:50 99.1 92 18 158/69 (98) 100 11/17/19 08:59 83 131/79 11/17/19 08:59 83 131/79 11/17/19 08:58 131/79 11/17/19 07:40 101.5 83 18 131/79 (96) 100 11/17/19 04:36 100.4 11/17/19 04:00 102.0 97 18 161/71 (101) 100 11/17/19 03:54 165/76 11/17/19 03:30 95 11/17/19 00:20 173/80 11/17/19 00:03 100.4 11/17/19 00:00 100.4 81 18 163/72 (102) 100 11/17/19 00:00 82 11/16/19 23:32 175/83 11/16/19 21:00 Non-Rebreather 15.0 11/16/19 20:00 100.4 85 20 160/63 (95) 100 11/16/19 19:12 84 11/16/19 18:00 162/69 Intake and Output 11/16/19 11/17/19 19:00 07:00 Intake Total 600 ml 600 ml Output Total 550 ml 400 ml Balance 50 ml 200 ml IV Total 600 ml 600 ml Output Urine Total 550 ml 400 ml Laboratory Tests 11/17/19 06:41: White Blood Count 9.7, Red Blood Count 3.03L, Hemoglobin 8.7L, Hematocrit 26.2L , Mean Corpuscular Volume 87, Mean Corpuscular Hemoglobin 28.7, Mean Corpuscular Hemoglobin Concent 33.2, Red Cell Distribution Width 12.7, Platelet Count 264, Mean Platelet Volume 5.7L, Neutrophils (%) (Auto) , Lymphocytes (%) ( Auto) , Monocytes (%) (Auto) , Eosinophils (%) (Auto) , Basophils (%) (Auto) , Differential Total Cells Counted 100, Neutrophils % (Manual) 90H, Lymphocytes % (Manual) 2L, Monocytes % (Manual) 8, Eosinophils % (Manual) 0, Basophils % ( Manual) 0, Band Neutrophils 0, Platelet Estimate Adequate, Platelet Morphology Normal, Hypochromasia 2+, Anisocytosis 1+, Sodium Level 146H, Potassium Level 4.2, Chloride Level 111H, Carbon Dioxide Level 21, Anion Gap 14, Blood Urea Nitrogen 41H, Creatinine 2.7H, Estimat Glomerular Filtration Rate 27.1, Glucose Level 133H, Calcium Level 8.5 11/17/19 08:41: Arterial Blood pH 7.277L, Arterial Blood Partial Pressure CO2 41.9, Arterial Blood Partial Pressure O2 200.0H, Arterial Blood HCO3 19.1L, Arterial Blood Oxygen Saturation 98.9, Arterial Blood Base Excess -7.2L, Dc Test Positive Height (Feet): 5 Height (Inches): 10.00 Weight (Pounds): 196 Aliyah Miller MD November 17, 2019 17:20
--- NOTE | 2019-11-17 18:00 | NUR ---
NURSE NOTES: The patient is tolerating 15L non-rebreather well at this time. The patient is on antibiotics and lasix drip. Condom cath draining well. Will closely monitor the patient.
--- NOTE | 2019-11-17 19:20 | NUR ---
NURSE NOTES: Received report from Morena LABOY. The patient is resting in bed. The patient is on 15L non-rebreather for oxygen therapy, and oxygen saturation within normal range. The patient has condom cath that is intact and draining by gravity. No distress at this time. Will continue to monitor.
--- NOTE | 2019-11-17 19:30 | NUR ---
HAND-OFF: Report given to BENOIT Wilson. The patient is in stable condition. Endorsed plan of care.
[2019-11-17] MEDS: Atorvastatin 20mg tab ORAL SCH ×2 (21:00→22:07)
[2019-11-17] MEDS: Epoetin Alfa-EPBX (NON ESRD) 3000 units/ml vial SUBQ SCH (22:06)
--- NOTE | 2019-11-17 23:57 | Cardiology Progress Note ---
Assessment/Plan Assessment/Plan 1. Non-sustained ventricular tachycardia, keep Mg level at 2.1, increase coreg. 2. Elevated troponin I level in this patient likely acute HFpEF in view of CKD, HTN and age. Continue ASA and statins. 3. Severe with HERMINIO at 0.8 cm2. Avoid potent diuretics and afterload reducers. 4. DM, continue ASA and statins. 5. Hypertension secondary renal parenchymal disease, well controlled, continue hydralazine, nifedipine and clonidine patch. 6. CKD with MISAEL, creat up to 3.3. 7. COVID-19 pneumonia on Ceftriaxone. Subjective Subjective Sinus rhythm at rate of 90. On non-rebreather mask. Objective Last 24 Hour Vital Signs Date Time Temp Pulse Resp B/P (MAP) Pulse Ox O2 Delivery O2 Flow Rate FiO2 11/17/19 21:00 Non-Rebreather 15.0 11/17/19 20:00 98.5 90 16 150/63 (92) 100 11/17/19 20:00 86 11/17/19 16:45 140/85 11/17/19 16:00 89 11/17/19 16:00 98.5 89 18 142/73 (96) 100 11/17/19 16:00 Non-Rebreather 15.0 11/17/19 12:39 158/69 11/17/19 12:00 Non-Rebreather 15.0 11/17/19 12:00 82 11/17/19 11:50 99.1 92 18 158/69 (98) 100 11/17/19 08:59 83 131/79 11/17/19 08:59 83 131/79 11/17/19 08:58 131/79 11/17/19 08:00 82 11/17/19 08:00 Non-Rebreather 15.0 11/17/19 08:00 101.5 83 18 131/79 (96) 100 11/17/19 07:40 101.5 83 18 131/79 (96) 100 11/17/19 04:36 100.4 11/17/19 04:00 102.0 97 18 161/71 (101) 100 11/17/19 03:54 165/76 11/17/19 03:30 95 11/17/19 00:20 173/80 11/17/19 00:03 100.4 11/17/19 00:00 100.4 81 18 163/72 (102) 100 11/17/19 00:00 82 Intake and Output 11/16/19 11/17/19 19:00 07:00 Intake Total 600 ml 600 ml Output Total 550 ml 400 ml Balance 50 ml 200 ml IV Total 600 ml 600 ml Output Urine Total 550 ml 400 ml 2D Echo: EF 55%, HERMINIO 0.8cm2, RVSP 48, mod MR, Mild AR/ME, Grade I LVDD Laboratory Tests Test 11/17/19 06:41 11/17/19 08:41 White Blood Count 9.7 K/UL (4.8-10.8) Red Blood Count 3.03 M/UL (4.70-6.10) L Hemoglobin 8.7 G/DL (14.2-18.0) L Hematocrit 26.2 % (42.0-52.0) L Mean Corpuscular Volume 87 FL (80-99) Mean Corpuscular Hemoglobin 28.7 PG (27.0-31.0) Mean Corpuscular Hemoglobin Concent 33.2 G/DL (32.0-36.0) Red Cell Distribution Width 12.7 % (11.6-14.8) Platelet Count 264 K/UL (150-450) Mean Platelet Volume 5.7 FL (6.5-10.1) L Neutrophils (%) (Auto) % (45.0-75.0) Lymphocytes (%) (Auto) % (20.0-45.0) Monocytes (%) (Auto) % (1.0-10.0) Eosinophils (%) (Auto) % (0.0-3.0) Basophils (%) (Auto) % (0.0-2.0) Differential Total Cells Counted 100 Neutrophils % (Manual) 90 % (45-75) H Lymphocytes % (Manual) 2 % (20-45) L Monocytes % (Manual) 8 % (1-10) Eosinophils % (Manual) 0 % (0-3) Basophils % (Manual) 0 % (0-2) Band Neutrophils 0 % (0-8) Platelet Estimate Adequate Platelet Morphology Normal Hypochromasia 2+ Anisocytosis 1+ Sodium Level 146 MMOL/L (136-145) H Potassium Level 4.2 MMOL/L (3.5-5.1) Chloride Level 111 MMOL/L (98-107) H Carbon Dioxide Level 21 MMOL/L (21-32) Anion Gap 14 mmol/L (5-15) Blood Urea Nitrogen 41 mg/dL (7-18) H Creatinine 2.7 MG/DL (0.55-1.30) H Estimat Glomerular Filtration Rate 27.1 mL/min (>60) Glucose Level 133 MG/DL (74-106) H Calcium Level 8.5 MG/DL (8.5-10.1) Arterial Blood pH 7.277 (7.350-7.450) Arterial Blood Partial Pressure CO2 41.9 mmHg (35.0-45.0) Arterial Blood Partial Pressure O2 200.0 mmHg (75.0-100.0) H Arterial Blood HCO3 19.1 mmol/L (22.0-26.0) L Arterial Blood Oxygen Saturation 98.9 % (95-100) Arterial Blood Base Excess -7.2 (-2-2) L Dc Test Positive Objective HEENT: Atraumatic and normocephalic. Anicteric. Pupils are equal, round, and reactive to light and accommodation. Extraocular muscles intact. NECK: JVP less than 5 cm. No carotid bruit. Carotid upstrokes 2+ bilaterally. CARDIOVASCULAR: Normal S1, S2. Regular rate and rhythm. 2/6 ESM at LSB, gallops, or rubs. PMI is at fourth intercostal space at the midclavicular line. LUNGS: Bibasilar crackles with diminished both lungs. ABDOMEN: Soft, nontender, nondistended. No hepatosplenomegaly. Positive bowel sounds. EXTREMITIES: No evidence of edema, clubbing, or cyanosis. Dick Payan MD November 17, 2019 23:57
[2019-11-18] VITALS: BP 158/68
--- NOTE | 2019-11-18 01:00 | Consultation ---
DATE OF CONSULTATION: 11/17/2019 HISTORY OF PRESENT ILLNESS: This is an 89-year-old male with a history of multiple medical issues including diabetes mellitus, hypertension, major depressive disorder, dementia, diabetes, UTI, BPH, and COVID-19 who has been admitted to the hospital for medical stabilization. The patient became agitated today, attempting to come out of bed, pulling out. His IV access are manageable. The patient was transferred also to [place] as he has been decompensating. The patient is confused and disoriented. Unable to provide any meaningful history. PAST PSYCHIATRIC HISTORY: Dementia and depression. PAST MEDICAL HISTORY: As above. ALLERGIES: No known drug allergies. SUBSTANCE ABUSE HISTORY: No known history of illicit drug use or alcohol. MENTAL STATUS EXAMINATION: The patient is waxing and waning of consciousness. Mood is agitated. Affect is flat. Thought process, there is a paucity of thought content. Thought content, no suicidal or homicidal ideation. Cognition is impaired. Insight and judgment impaired. ASSESSMENT: AXIS I: 1. Dementia. 2. Major depressive disorder. AXIS II: Deferred. AXIS III: COVID-19. AXIS IV: Low. AXIS V: 25. PLAN: 1. Continue the Remeron. 2. Soft restraints. The patient may need p.r.n. medication. Alexis Frey M.D. DR: Darius JOB#: [id number] CC:
[2019-11-18] MEDS: Piperacillin/Tazobactam 3.375 GM in NS 110 ML IVPB SCH ×2 (01:24→12:37)
[2019-11-18 04:00] VITALS: BP 136/67
[2019-11-18] MEDS: NovoLOG Insulin Flexpen SUBQ SCH ×4 (06:30→21:00)
[2019-11-18 06:56] LABS: HEMATOCRIT 26.1 % (42.0-52.0); HEMOGLOBIN 8.7 G/DL (14.2-18.0); MEAN CORPUSCULAR VOLUME 88 FL (80-99); PLATELET COUNT 280 K/UL (150-450); RED BLOOD COUNT 2.96 M/UL (4.70-6.10); RED CELL DISTRIBUTION WIDTH 13.2 % (11.6-14.8); WHITE BLOOD COUNT 11.1 K/UL (4.8-10.8)
--- NOTE | 2019-11-18 07:04 | Hematology/Onc Progress Note ---
Assessment/Plan Assessment/Plan Assess/Recs: # Pancytopenia -- initially with Anemia of chronic disease due to underlying chronic medical issues, multifactorial, also covie19 related, noted also with uti and sepsis --> Anemia workup has been ordered spep neg, ferritin is 117 --> No evidence of hemolysis is noted, peripheral smear has been reviewed. --> Hgb goal >7. Transfuse prn. --> Epogen or iron at this time is not particularly indicated --> Medications have been reviewed --> plt 136-->138-->139-->205 --> hgb 7.7-->8.1 -->8.7 --> wbc 3.6-->5-->8.9 --> CT of abdomen pelvis without contrast read by radiology showed bladder thickening and possible cystitis prior admission --> as per id recs # [id number] Fever with cough --> covid+ --> iso --> as per id --> on ctx --> on bipap # MISAEL on ckd --> as per renal team # DM nephropathy # BPH # Hypokalemia --> replete with k as needed The timing of this note does not necessarily reflect the time of the patient was seen. Greatly appreciate consultation! Subjective Cardiovascular: Denies: no symptoms, chest pain, edema, irregular heart rate, lightheadedness, palpitations, syncope, other Respiratory: Denies: no symptoms, cough, shortness of breath, SOB with excertion, SOB at rest, sputum, wheezing, other Gastrointestinal/Abdominal: Denies: no symptoms, abdomen distended, abdominal pain, black stools, tarry stools, blood in stool, constipated, diarrhea, difficulty swallowing, nausea, poor appetite, poor fluid intake, rectal bleeding , vomiting, other Genitourinary: Denies: no symptoms, burning, discharge, frequency, flank pain, hematuria, incontinence, pain, urgency, other Endocrine: Denies: no symptoms, excessive sweating, flushing, intolerance to cold, intolerance to heat, increased hunger, increased thirst, increased urine, unexplained weight gain, unexplained weight loss, other Hematologic/Lymphatic: Denies: no symptoms, anemia, easy bleeding, easy bruising, adenopathy, other Allergies: Coded Allergies: No Known Allergies (Unverified , 05/27/15) Subjective 11/09 labs reviewed, no bleeding, meds noted, seen by cards, cbc pendin 11/10 labs noted, no bleeding, serology neg, supportive care for covid19 11/11 bp high, hydralazine given overnight, on mirtaazapine, no changes 11/12 on a nrb, no bleeding, meds noted, no night sweats 11/13 blood was given yesterday, overnight, no traction, no night sweats 11/15 sdu, nrb, temp 101, labs reviewed, on cftx 11/16 labs are reviewed, no bleeding, fm changed to bipap, hgb 8.7 11/17 is on 15l nr, no bleeding, no night sweats, labs reviewed Objective Objective Current Medications Medications (Trade) Dose Ordered Sig/Mayank Route PRN Reason Start Time Stop Time Status Last Admin Dose Admin Acetaminophen (Tylenol) 500 mg Q4H PRN ORAL Mild Pain/Temp >100.5 11/14/19 09:45 12/08/19 21:44 11/16/19 23:33 Acetaminophen (Tylenol) 650 mg Q4H PRN RECTAL Mild Pain (Pain Scale 1-3) 11/14/19 07:45 12/13/19 19:44 11/17/19 13:10 Aspirin (Ecotrin) 81 mg DAILY ORAL 11/14/19 09:00 12/27/19 08:59 11/15/19 08:57 Atorvastatin Calcium (Lipitor) 20 mg BEDTIME ORAL 11/14/19 21:00 02/10/20 20:59 11/16/19 21:28 Bethanechol Chloride (Urecholine) 25 mg THREE TIMES A DAY ORAL 11/14/19 09:00 12/09/19 08:59 11/15/19 14:05 Carvedilol (Coreg) 25 mg EVERY 12 HOURS ORAL 11/17/19 09:00 12/17/19 08:59 Clonidine HCl (Catapres TTS-1) 1 patch QWEEK TDERMAL 11/15/19 14:00 02/13/20 13:59 11/15/19 15:13 Clonidine HCl (Catapres Tab) 0.1 mg Q4H PRN ORAL For High Blood Pressure 11/14/19 07:15 02/09/20 15:11 11/16/19 23:32 Dextrose (Dextrose 50%) 25 ml Q30M PRN IV Hypoglycemia 11/14/19 07:15 02/06/20 21:44 Dextrose (Dextrose 50%) 50 ml Q30M PRN IV Hypoglycemia 11/14/19 07:15 02/06/20 21:44 Docusate Sodium (Colace) 100 mg THREE TIMES A DAY ORAL 11/16/19 09:00 12/16/19 08:59 Epoetin Mohit (Epoetin Mohit-EPBX(NON ESRD)) 6,000 unit SUN- SUBQ 11/14/19 21:00 02/08/20 20:59 11/17/19 22:06 Finasteride (Proscar) 5 mg DAILY ORAL 11/14/19 09:00 02/07/20 08:59 11/15/19 08:56 Furosemide 100 mg/ Dextrose 110 ml @ 8.25 mls/hr [id number] IV 11/17/19 13:00 12/17/19 12:59 11/18/19 01:33 Hydralazine HCl (Apresoline) 10 mg Q2HR PRN IV sbp>160 mmhg 11/17/19 00:15 02/15/20 00:14 11/17/19 03:54 Hydralazine HCl (Apresoline) 25 mg TID ORAL 11/17/19 09:00 02/15/20 08:59 Insulin Aspart (NovoLOG) BEFORE MEALS AND HS SUBQ 11/14/19 11:30 02/07/20 22:59 11/16/19 12:06 Insulin Detemir (Levemir) 14 units Q24H SUBQ 11/14/19 09:00 02/07/20 08:59 11/17/19 10:26 Mirtazapine (Remeron) 7.5 mg BEDTIME ORAL 11/14/19 21:00 02/06/20 22:59 11/16/19 21:28 Nateglinide (Starlix) 120 mg THREE TIMES A DAY ORAL 11/14/19 09:00 12/09/19 08:59 11/15/19 14:05 Nifedipine (Procardia XL) 90 mg DAILY ORAL 11/15/19 09:00 12/15/19 08:59 11/15/19 08:56 Piperacillin Sod/ Tazobactam Sod 3.375 gm/Sodium Chloride 110 ml @ 27.5 mls/hr Q12H IVPB 11/17/19 13:00 11/24/19 12:59 11/18/19 01:24 Tamsulosin HCl (Flomax) 0.4 mg BID ORAL 11/14/19 09:00 12/09/19 20:59 11/15/19 08:57 Last 24 Hour Vital Signs Date Time Temp Pulse Resp B/P (MAP) Pulse Ox O2 Delivery O2 Flow Rate FiO2 11/18/19 04:00 89 11/18/19 04:00 98.6 100 16 136/67 (90) 100 11/18/19 00:00 Non-Rebreather 15.0 11/18/19 00:00 99.3 90 16 158/68 (98) 100 11/18/19 00:00 96 11/17/19 21:00 Non-Rebreather 15.0 11/17/19 20:00 98.5 90 16 150/63 (92) 100 11/17/19 20:00 86 11/17/19 16:45 140/85 11/17/19 16:00 89 11/17/19 16:00 98.5 89 18 142/73 (96) 100 11/17/19 16:00 Non-Rebreather 15.0 11/17/19 12:39 158/69 11/17/19 12:00 Non-Rebreather 15.0 11/17/19 12:00 82 11/17/19 11:50 99.1 92 18 158/69 (98) 100 11/17/19 08:59 83 131/79 11/17/19 08:59 83 131/79 11/17/19 08:58 131/79 11/17/19 08:00 82 11/17/19 08:00 Non-Rebreather 15.0 11/17/19 08:00 101.5 83 18 131/79 (96) 100 11/17/19 07:40 101.5 83 18 131/79 (96) 100 11/17/19 04:36 100.4 11/17/19 04:00 102.0 97 18 161/71 (101) 100 11/17/19 03:54 165/76 11/17/19 03:30 95 11/17/19 00:20 173/80 5/4/20 00:03 100.4 11/17/19 00:00 100.4 81 18 163/72 (102) 100 11/17/19 00:00 82 11/16/19 23:32 175/83 11/16/19 21:00 Non-Rebreather 15.0 11/16/19 20:00 100.4 85 20 160/63 (95) 100 11/16/19 19:12 84 11/16/19 18:00 162/69 11/16/19 16:00 81 11/16/19 16:00 100.8 87 20 162/69 (100) 100 11/16/19 12:00 98.1 79 20 139/68 (91) 100 11/16/19 11:51 79 11/16/19 09:00 83 144/63 11/16/19 09:00 83 144/63 11/16/19 09:00 144/63 11/16/19 09:00 Non-Rebreather 15.0 11/16/19 08:00 97.9 83 18 144/63 (90) 98 11/16/19 07:48 74 Intake and Output 11/17/19 11/18/19 19:00 07:00 Intake Total 49.5 ml 192.50 ml Output Total 300 ml 800 ml Balance -250.5 ml -607.50 ml IV Total 49.5 ml 192.50 ml Output Urine Total 300 ml 800 ml Labs Test 11/16/19 04:00 11/17/19 06:41 11/17/19 08:41 11/18/19 04:10 White Blood Count 8.9 K/UL (4.8-10.8) 9.7 K/UL (4.8-10.8) 11.1 K/UL (4.8-10.8) Red Blood Count 2.85 M/UL (4.70-6.10) 3.03 M/UL (4.70-6.10) 2.96 M/UL (4.70-6.10) Hemoglobin 8.1 G/DL (14.2-18.0) 8.7 G/DL (14.2-18.0) 8.7 G/DL (14.2-18.0) Hematocrit 24.7 % (42.0-52.0) 26.2 % (42.0-52.0) 26.1 % (42.0-52.0) Mean Corpuscular Volume 87 FL (80-99) 87 FL (80-99) 88 FL (80-99) Mean Corpuscular Hemoglobin 28.4 PG (27.0-31.0) 28.7 PG (27.0-31.0) 29.3 PG (27.0-31.0) Mean Corpuscular Hemoglobin Concent 32.8 G/DL (32.0-36.0) 33.2 G/DL (32.0-36.0) 33.1 G/DL (32.0-36.0) Red Cell Distribution Width 12.3 % (11.6-14.8) 12.7 % (11.6-14.8) 13.2 % (11.6-14.8) Platelet Count 205 K/UL (150-450) 264 K/UL (150-450) 280 K/UL (150-450) Mean Platelet Volume 5.0 FL (6.5-10.1) 5.7 FL (6.5-10.1) 5.3 FL (6.5-10.1) Neutrophils (%) (Auto) % (45.0-75.0) % (45.0-75.0) % (45.0-75.0) Lymphocytes (%) (Auto) % (20.0-45.0) % (20.0-45.0) % (20.0-45.0) Monocytes (%) (Auto) % (1.0-10.0) % (1.0-10.0) % (1.0-10.0) Eosinophils (%) (Auto) % (0.0-3.0) % (0.0-3.0) % (0.0-3.0) Basophils (%) (Auto) % (0.0-2.0) % (0.0-2.0) % (0.0-2.0) Prothrombin Time 11.0 SEC (9.30-11.50) Prothromb Time International Ratio 1.0 (0.9-1.1) Sodium Level 144 MMOL/L (136-145) 146 MMOL/L (136-145) Potassium Level 4.5 MMOL/L (3.5-5.1) 4.2 MMOL/L (3.5-5.1) Chloride Level 109 MMOL/L (98-107) 111 MMOL/L (98-107) Carbon Dioxide Level 20 MMOL/L (21-32) 21 MMOL/L (21-32) Anion Gap 15 mmol/L (5-15) 14 mmol/L (5-15) Blood Urea Nitrogen 40 mg/dL (7-18) 41 mg/dL (7-18) Creatinine 2.9 MG/DL (0.55-1.30) 2.7 MG/DL (0.55-1.30) Estimat Glomerular Filtration Rate 25.0 mL/min (>60) 27.1 mL/min (>60) Glucose Level 212 MG/DL (74-106) 133 MG/DL (74-106) Calcium Level 8.0 MG/DL (8.5-10.1) 8.5 MG/DL (8.5-10.1) Phosphorus Level 3.6 MG/DL (2.5-4.9) Magnesium Level 2.1 MG/DL (1.8-2.4) Iron Level 17 ug/dL (50-175) Total Iron Binding Capacity 144 ug/dL (250-450) Percent Iron Saturation 12 % (15-50) Unsaturated Iron Binding 127 ug/dL (112-346) Ferritin 949 NG/ML (8-388) Total Bilirubin 0.5 MG/DL (0.2-1.0) Aspartate Amino Transf (AST/SGOT) 55 U/L (15-37) Alanine Aminotransferase (ALT/SGPT) 36 U/L (12-78) Alkaline Phosphatase 50 U/L (46-116) Total Protein 6.9 G/DL (6.4-8.2) Albumin 2.5 G/DL (3.4-5.0) Globulin 4.4 g/dL Albumin/Globulin Ratio 0.6 (1.0-2.7) Vitamin B12 Level 1631 PG/ML (193-986) Folate 13.6 NG/ML (8.6-58.9) Differential Total Cells Counted 100 Neutrophils % (Manual) 90 % (45-75) Lymphocytes % (Manual) 2 % (20-45) Monocytes % (Manual) 8 % (1-10) Eosinophils % (Manual) 0 % (0-3) Basophils % (Manual) 0 % (0-2) Band Neutrophils 0 % (0-8) Platelet Estimate Adequate Platelet Morphology Normal Hypochromasia 2+ Anisocytosis 1+ Arterial Blood pH 7.277 (7.350-7.450) Arterial Blood Partial Pressure CO2 41.9 mmHg (35.0-45.0) Arterial Blood Partial Pressure O2 200.0 mmHg (75.0-100.0) Arterial Blood HCO3 19.1 mmol/L (22.0-26.0) Arterial Blood Oxygen Saturation 98.9 % (95-100) Arterial Blood Base Excess -7.2 (-2-2) Dc Test Positive Height (Feet): 5 Height (Inches): 10.00 Weight (Pounds): 196 Objective vitals: noted ENT: dry mucus membranes Neck: limited range of motion Respiratory: decreased breath sounds 15l nrm++ Cardiovascular: normal peripheral pulses, rrr Gastrointestinal: normal bowel sounds, soft, tenderness - suprapubic Musculoskeletal: decreased range of motion Neurologic: normal inspection, alert, responsive Psychiatric: normal inspection Skin: normal inspection, normal color Cesar Singh MD November 18, 2019 07:04
--- NOTE | 2019-11-18 07:16 | NUR ---
HAND-OFF: Report given to BENOIT Reed. Patient in bed resting no adverse events overnight. Will continue to monitor.
--- NOTE | 2019-11-18 07:20 | NUR ---
NURSE NOTES: Received report from BENOIT Wilson. Patient is resting in bed in stable condition. No s/sx of SOB, breathing is even and unlabored, pt on non-rebreather 10L. Patient is sleeping, observed no presence of pain or discomfort at this time. Per night nurse, Dr. Brown inserted an dobhoff NGT yesterday, per x-ray showed malpositioned, Dobhoff discontinued, pt kept NPO. Bed is in lowest position, brakes engaged. Call light is kept within easy reach. Will continue to monitor patient.
[2019-11-18 07:24] LABS: ANION GAP 20 mmol/L (5-15); BLOOD UREA NITROGEN 50 mg/dL (7-18); CALCIUM 8.8 MG/DL (8.5-10.1); CARBON DIOXIDE 19 MMOL/L (21-32); CHLORIDE 110 MMOL/L (98-107); CREATININE 3.3 MG/DL (0.55-1.30); POTASSIUM 4.8 MMOL/L (3.5-5.1); SODIUM 148 MMOL/L (136-145)
[2019-11-18 08:00] VITALS: BP 148/73
[2019-11-18] MEDS: HydrALAZINE 25mg tab ORAL SCH (08:20)
[2019-11-18] MEDS: Carvedilol 25mg Tab ORAL SCH ×2 (08:21→21:00)
[2019-11-18] MEDS: Docusate 100mg/10ml Liq ORAL SCH ×3 (08:21→17:29)
[2019-11-18] MEDS: Tamsulosin 0.4mg cap ORAL SCH ×2 (08:23→17:29)
[2019-11-18] MEDS: Bethanechol 25mg Tab ORAL SCH (08:23)
[2019-11-18] MEDS: Aspirin EC 81mg tab ORAL SCH (08:23)
--- NOTE | 2019-11-18 09:53 | NUR ---
CASE MANAGEMENT: REVIEW SI: COVID-19 . PNA T 99.3 HR 90 RR 16 BP 158/68 SAT 100% NON-REBREATHER FLOW RATE 15.0 WBC 11.1 H/H 8.7/26.1 NA 148 BUN 50 CR 3.3 GLUCOSE 215 IS: FUROSEMIDE 100MG / D5W IV 110ML@8.25ML/HR ZOSYN IV Q12HR TYLENOL 500MG Q4HR PRN NGT FEEDING STEP DOWN UNIT STATUS DCP: PATIENT IS FROM [facility] [place]. PATIENT WILL NEED SNF PLACEMENT.
[2019-11-18] MEDS: Levemir Flexpen SUBQ SCH ×2 (10:00→10:07)
--- NOTE | 2019-11-18 10:34 | Nephrology Progress Note ---
Assessment/Plan Problem List: (1) Acute on chronic renal failure Assessment: Serum creatinine rising (2) BPH (benign prostatic hyperplasia) (3) Anemia (4) Sepsis (5) COVID-19 virus detected Assessment Mr. Melton is admitted with pneumonia and UTI and exposure to COVID-19 virus, and the test is positive From renal standpoint of view: Acute on chronic renal failure: Serum creatinine has risen from baseline of 1.6- 2.5 Diabetic nephropathy BPH Anemia Hypertension Plan Positive for COVID-19 November 17: Patient started on diuresis yesterday due to CHF symptoms Serum creatinine up to 3.3 today We will order a Hitchcock catheter Will adjust blood pressure medication Will discuss with Dr. Westfall Previously: Serum creatinine pito , but seems to be stabilizing and declining, Creatinine down to 2.7 Kidney ultrasound results noted adjust blood pressure medication as the blood pressure has been fluctuating Slow hydration and 1 bolus of albumin Kidney ultrasound results noted Monitor renal parameters Avoid nephrotoxic's Flomax twice daily Antibiotics per ID Will review the 2D echocardiogram and ultrasound which was done previously Per orders Subjective ROS Limited/Unobtainable: No Constitutional: Reports: malaise Objective Objective Last 24 Hour Vital Signs Date Time Temp Pulse Resp B/P (MAP) Pulse Ox O2 Delivery O2 Flow Rate FiO2 11/18/19 08:00 98.2 91 18 148/73 (98) 100 11/18/19 04:00 89 11/18/19 04:00 98.6 100 16 136/67 (90) 100 11/18/19 00:00 Non-Rebreather 15.0 11/18/19 00:00 99.3 90 16 158/68 (98) 100 11/18/19 00:00 96 11/17/19 21:00 Non-Rebreather 15.0 11/17/19 20:00 98.5 90 16 150/63 (92) 100 11/17/19 20:00 86 11/17/19 16:45 140/85 11/17/19 16:00 89 11/17/19 16:00 98.5 89 18 142/73 (96) 100 11/17/19 16:00 Non-Rebreather 15.0 11/17/19 12:39 158/69 11/17/19 12:00 Non-Rebreather 15.0 11/17/19 12:00 82 11/17/19 11:50 99.1 92 18 158/69 (98) 100 Intake and Output 11/17/19 11/18/19 19:00 07:00 Intake Total 49.5 ml 192.50 ml Output Total 300 ml 800 ml Balance -250.5 ml -607.50 ml IV Total 49.5 ml 192.50 ml Output Urine Total 300 ml 800 ml Laboratory Tests 11/18/19 04:10: White Blood Count 11.1H, Red Blood Count 2.96L, Hemoglobin 8.7L, Hematocrit 26.1L, Mean Corpuscular Volume 88, Mean Corpuscular Hemoglobin 29.3, Mean Corpuscular Hemoglobin Concent 33.1, Red Cell Distribution Width 13.2, Platelet Count 280, Mean Platelet Volume 5.3L, Neutrophils (%) (Auto) , Lymphocytes (%) ( Auto) , Monocytes (%) (Auto) , Eosinophils (%) (Auto) , Basophils (%) (Auto) , Differential Total Cells Counted 100, Neutrophils % (Manual) 92H, Lymphocytes % (Manual) 5L, Monocytes % (Manual) 3, Eosinophils % (Manual) 0, Basophils % ( Manual) 0, Band Neutrophils 0, Platelet Estimate Adequate, Platelet Morphology Normal, Hypochromasia 2+, Anisocytosis 1+, Spherocytes 1+, Sodium Level 148H, Potassium Level 4.8, Chloride Level 110H, Carbon Dioxide Level 19L, Anion Gap 20H, Blood Urea Nitrogen 50H, Creatinine 3.3H, Estimat Glomerular Filtration Rate 21.5, Glucose Level 215H, Calcium Level 8.8 Height (Feet): 5 Height (Inches): 10.00 Weight (Pounds): 196 General Appearance: no apparent distress, lethargic Cardiovascular: tachycardia Respiratory/Chest: decreased breath sounds Abdomen: distended Objective No change Rodrigue Mackenzie MD November 18, 2019 10:34
--- NOTE | 2019-11-18 10:52 | General Progress Note ---
Assessment/Plan Status: progressing Assessment/Plan: 1. Hypertension. 2. Diabetes. 3. Anemia. 4. Renal insufficiency. 5. BPH. 6. Dysphagia 7. COVID PNA fu labs pulm CARE try to place NGT again today fu speech will start TF if in proper place Subjective ROS Limited/Unobtainable: No Allergies: Coded Allergies: No Known Allergies (Unverified , 05/27/15) Objective Last 24 Hour Vital Signs Date Time Temp Pulse Resp B/P (MAP) Pulse Ox O2 Delivery O2 Flow Rate FiO2 11/18/19 09:00 Non-Rebreather 15.0 11/18/19 08:00 98.2 91 18 148/73 (98) 100 11/18/19 04:00 89 11/18/19 04:00 98.6 100 16 136/67 (90) 100 11/18/19 00:00 Non-Rebreather 15.0 11/18/19 00:00 99.3 90 16 158/68 (98) 100 11/18/19 00:00 96 11/17/19 21:00 Non-Rebreather 15.0 11/17/19 20:00 98.5 90 16 150/63 (92) 100 11/17/19 20:00 86 11/17/19 16:45 140/85 11/17/19 16:00 89 11/17/19 16:00 98.5 89 18 142/73 (96) 100 11/17/19 16:00 Non-Rebreather 15.0 11/17/19 12:39 158/69 11/17/19 12:00 Non-Rebreather 15.0 11/17/19 12:00 82 11/17/19 11:50 99.1 92 18 158/69 (98) 100 Intake and Output 11/17/19 11/18/19 19:00 07:00 Intake Total 49.5 ml 192.50 ml Output Total 300 ml 800 ml Balance -250.5 ml -607.50 ml IV Total 49.5 ml 192.50 ml Output Urine Total 300 ml 800 ml Laboratory Tests 11/18/19 04:10: White Blood Count 11.1H, Red Blood Count 2.96L, Hemoglobin 8.7L, Hematocrit 26.1L, Mean Corpuscular Volume 88, Mean Corpuscular Hemoglobin 29.3, Mean Corpuscular Hemoglobin Concent 33.1, Red Cell Distribution Width 13.2, Platelet Count 280, Mean Platelet Volume 5.3L, Neutrophils (%) (Auto) , Lymphocytes (%) ( Auto) , Monocytes (%) (Auto) , Eosinophils (%) (Auto) , Basophils (%) (Auto) , Differential Total Cells Counted 100, Neutrophils % (Manual) 92H, Lymphocytes % (Manual) 5L, Monocytes % (Manual) 3, Eosinophils % (Manual) 0, Basophils % ( Manual) 0, Band Neutrophils 0, Platelet Estimate Adequate, Platelet Morphology Normal, Hypochromasia 2+, Anisocytosis 1+, Spherocytes 1+, Sodium Level 148H, Potassium Level 4.8, Chloride Level 110H, Carbon Dioxide Level 19L, Anion Gap 20H, Blood Urea Nitrogen 50H, Creatinine 3.3H, Estimat Glomerular Filtration Rate 21.5, Glucose Level 215H, Calcium Level 8.8 Height (Feet): 5 Height (Inches): 10.00 Weight (Pounds): 196 General Appearance: no apparent distress EENT: normal ENT inspection Neck: supple Cardiovascular: normal rate Respiratory/Chest: decreased breath sounds Abdomen: normal bowel sounds, non tender, soft Extremities: non-tender Fer Brown MD November 18, 2019 10:52
--- NOTE | 2019-11-18 11:48 | NUR ---
NOTES: CONTINUOUS MINER OPERATOR HELPER orders for Bedside swallow evaluation received and acknowledged by Mark Lamb on 11/17/19. Pt referred s/p: Per Morena LABOY (11/16/19), night RN attempted to administer PO medications, however, Pt observed choking and spit medications out of mouth. Therefore, Pt was made NPO due to concern for aspiration risk and awaiting swallow consult. Per ST 11/17/19, attempted to see Pt at bedside, however, Per BENOIT Berg, Pt is not appropriate for CONTINUOUS MINER OPERATOR HELPER evaluation due to Pt's acute medical condition. CONTINUOUS MINER OPERATOR HELPER plans to f/u tomorrow to assess Pt's swallowing status and function. REFERRED FOR SWALLOW EVAL BY DR NAVARRETE 11/15/[address] DARDEN, SEE FULL REPORT. DYSPHAGIA RISK FACTORS FOR THIS 89 Y.O. ADVANCED AGED MALE: ACUTE ISSUES: COVID+ (COUGH, FEVER, SOB), RESPIRATORY PROBLEMS (MORDIBITIES WAS ON ROOM AIR UNTIL 11/13/19 NEEDED VENTURI MASK THEN CHANGED TO NON-REBREATHER MASK 15 LITERS UNTIL NOW,RESP RATE AT 16-18 AND SP02 100%, POOR ALERTNESS AMS, PNA (CXR 11/17/19 INCREASED BILATERAL PERIPHERAL HAZY INFILTRATES OVER 4 DAYS).INCREASED TROPONIN, RENAL FAILURE, UTI. H/O OBS, GERD (NEXIUM NOW WAS OMEPRAZOLE), NIDDM (INSULIN MEDS NOW), DEPRESSION (REMERON NOW), CARDIAC D/O, RENAL DZ, CKD, MUSCULOSKELETAL D/O, ANEMIA, ENDOCRINE D/O. NO POLST/AD IN CHART REGARDING TUBE FEEDING PREFERENCES FOUND. ? DIET AND FACILITY. 11/09 TO 11/12/19 (50-!00%) ON A LOW NA AND CCHO-MED SOFT CHEW AND THIN LIQUIDS WITH GLUCERNA 1 TETRA BID. PT THEN PLACED NPO DUE TO MEDICAL STATUS CHANGE IN BREATHING AND ALERTNESS. PER NATHALIE LABOY DR VOSOGHI (GI) TRIED TO PLACE NGT BUT NEEDED TO BE POSITIONED AGAIN. HE WILL TRY TO REINSERT IT TODAY. 11/16/2019 CHOKED AND SPIT OUT MEDS PER RN. INITIAL IMPRESSIONS: HIGH RISK FOR SIGNIFICANT OROPHARYNGEAL DYSPHAGIA AND SILENT ASPIRATION (H/O OBS AND HAS ACUTE PNA) WITH REPORTED DYSPHAGIA FOR PO MEDS 2 DAYS AGO NO REPORTED NEED FOR ORAL SUCTION. HIGH RISK FOR ASPIRATION DUE TO RESPIRATORY-SWALLOW INCOORDINATION (UNSAFE TO SWALLOW ON A NON-REBREATHER MASK 15 LITERS) NOT ALERT FOR FOLLOWING ORAL COMMANDS AND PO TRIALS (MALNUTRITION/DEHYDRATION RISK) RECOMMENDATIONS: CONTINUE WITH NPO STATUS AND RE-INSERT NGT (12 ARMENIAN SMALLER BORE PREFERRED LESS LIKELY TO AFFECT SWALLOW WHEN PT HAS A MODIFIED BARIUM SWALLOW STUDY TO FURTHER ASSESS SWALLOW, DETERMINE SILENT ASP RISK, AND ATTEMPT TRIAL TX). CONTINUE WITH ORAL CARE. WILL F/UP WITH SKILLED DYSPHAGIA MANAGEMENT AND TX AND COG-COM EVAL/TX
[2019-11-18 12:00] VITALS: BP 149/60
--- NOTE | 2019-11-18 13:39 | Infectious Diseases Prog Note ---
Assessment/Plan Assessment/Plan IMPRESSION: E. coli UTI COVID19 pneumonia + 11/07, 11/11 diabetes mellitus, hypertension, anemia, Right eye glaucoma. Acute renal failure RECOMMENDATION: Continue Zosyn Family agree with Hydroxychloroquine if symptoms are worse Poor prognosis Will f/u COVID19 test Subjective ROS Limited/Unobtainable: Yes Neurologic: Reports: confusion, other - on restraint Allergies: Coded Allergies: No Known Allergies (Unverified , 05/27/15) Objective Vital Signs Last 24 Hour Vital Signs Date Time Temp Pulse Resp B/P (MAP) Pulse Ox O2 Delivery O2 Flow Rate FiO2 11/18/19 09:00 Non-Rebreather 15.0 11/18/19 08:00 98.2 91 18 148/73 (98) 100 11/18/19 08:00 87 11/18/19 04:00 89 11/18/19 04:00 98.6 100 16 136/67 (90) 100 11/18/19 00:00 Non-Rebreather 15.0 11/18/19 00:00 99.3 90 16 158/68 (98) 100 11/18/19 00:00 96 11/17/19 21:00 Non-Rebreather 15.0 11/17/19 20:00 98.5 90 16 150/63 (92) 100 11/17/19 20:00 86 11/17/19 16:45 140/85 11/17/19 16:00 89 11/17/19 16:00 98.5 89 18 142/73 (96) 100 11/17/19 16:00 Non-Rebreather 15.0 Height (Feet): 5 Height (Inches): 10.00 Weight (Pounds): 196 HEENT: mucous membranes moist Respiratory/Chest: other - oxygen by rebreathing mask Cardiovascular: normal rate Abdomen: soft, non tender Neurologic/Psychiatric: disoriented Laboratory Tests Test 11/18/19 04:10 White Blood Count 11.1 K/UL (4.8-10.8) H Red Blood Count 2.96 M/UL (4.70-6.10) L Hemoglobin 8.7 G/DL (14.2-18.0) L Hematocrit 26.1 % (42.0-52.0) L Mean Corpuscular Volume 88 FL (80-99) Mean Corpuscular Hemoglobin 29.3 PG (27.0-31.0) Mean Corpuscular Hemoglobin Concent 33.1 G/DL (32.0-36.0) Red Cell Distribution Width 13.2 % (11.6-14.8) Platelet Count 280 K/UL (150-450) Mean Platelet Volume 5.3 FL (6.5-10.1) L Neutrophils (%) (Auto) % (45.0-75.0) Lymphocytes (%) (Auto) % (20.0-45.0) Monocytes (%) (Auto) % (1.0-10.0) Eosinophils (%) (Auto) % (0.0-3.0) Basophils (%) (Auto) % (0.0-2.0) Differential Total Cells Counted 100 Neutrophils % (Manual) 92 % (45-75) H Lymphocytes % (Manual) 5 % (20-45) L Monocytes % (Manual) 3 % (1-10) Eosinophils % (Manual) 0 % (0-3) Basophils % (Manual) 0 % (0-2) Band Neutrophils 0 % (0-8) Platelet Estimate Adequate Platelet Morphology Normal Hypochromasia 2+ Anisocytosis 1+ Spherocytes 1+ Sodium Level 148 MMOL/L (136-145) H Potassium Level 4.8 MMOL/L (3.5-5.1) Chloride Level 110 MMOL/L (98-107) H Carbon Dioxide Level 19 MMOL/L (21-32) L Anion Gap 20 mmol/L (5-15) H Blood Urea Nitrogen 50 mg/dL (7-18) H Creatinine 3.3 MG/DL (0.55-1.30) H Estimat Glomerular Filtration Rate 21.5 mL/min (>60) Glucose Level 215 MG/DL (74-106) H Calcium Level 8.8 MG/DL (8.5-10.1) Current Medications Medications (Trade) Dose Ordered Sig/Mayank Route PRN Reason Start Time Stop Time Status Last Admin Dose Admin Acetaminophen (Tylenol) 500 mg Q4H PRN ORAL Mild Pain/Temp >100.5 11/14/19 09:45 12/08/19 21:44 11/16/19 23:33 Acetaminophen (Tylenol) 650 mg Q4H PRN RECTAL Mild Pain (Pain Scale 1-3) 11/14/19 07:45 12/13/19 19:44 11/17/19 13:10 Aspirin (Ecotrin) 81 mg DAILY ORAL 11/14/19 09:00 12/27/19 08:59 11/15/19 08:57 Atorvastatin Calcium (Lipitor) 20 mg BEDTIME ORAL 11/14/19 21:00 02/10/20 20:59 11/16/19 21:28 Carvedilol (Coreg) 25 mg EVERY 12 HOURS ORAL 11/17/19 09:00 12/17/19 08:59 Clonidine HCl (Catapres TTS-1) 1 patch QWEEK TDERMAL 11/15/19 14:00 02/13/20 13:59 11/15/19 15:13 Clonidine HCl (Catapres Tab) 0.1 mg Q4H PRN ORAL For High Blood Pressure 11/14/19 07:15 02/09/20 15:11 11/16/19 23:32 Dextrose (Dextrose 50%) 25 ml Q30M PRN IV Hypoglycemia 11/14/19 07:15 02/06/20 21:44 Dextrose (Dextrose 50%) 50 ml Q30M PRN IV Hypoglycemia 11/14/19 07:15 02/06/20 21:44 Docusate Sodium (Colace) 100 mg THREE TIMES A DAY ORAL 11/16/19 09:00 12/16/19 08:59 Epoetin Mohit (Epoetin Mohit-EPBX(NON ESRD)) 6,000 unit SUN-SUN-SUN SUBQ 11/14/19 21:00 02/08/20 20:59 11/17/19 22:06 Finasteride (Proscar) 5 mg DAILY ORAL 11/14/19 09:00 02/07/20 08:59 11/15/19 08:56 Furosemide 100 mg/ Dextrose 110 ml @ 8.25 mls/hr [id number] IV 11/17/19 13:00 12/17/19 12:59 11/18/19 01:33 Hydralazine HCl (Apresoline) 10 mg Q2HR PRN IV sbp>160 mmhg 11/17/19 00:15 02/15/20 00:14 11/17/19 03:54 Hydralazine HCl (Apresoline) 50 mg Q8HR ORAL 11/18/19 14:00 02/15/20 08:59 Insulin Aspart (NovoLOG) BEFORE MEALS AND HS SUBQ 11/14/19 11:30 02/07/20 22:59 11/16/19 12:06 Insulin Detemir (Levemir) 14 units Q24H SUBQ 11/14/19 09:00 02/07/20 08:59 11/18/19 10:07 Mirtazapine (Remeron) 7.5 mg BEDTIME ORAL 11/14/19 21:00 02/06/20 22:59 11/16/19 21:28 Nateglinide (Starlix) 120 mg THREE TIMES A DAY ORAL 11/14/19 09:00 12/09/19 08:59 11/15/19 14:05 Nifedipine (Procardia XL) 90 mg DAILY ORAL 11/15/19 09:00 12/15/19 08:59 11/15/19 08:56 Piperacillin Sod/ Tazobactam Sod 3.375 gm/Sodium Chloride 110 ml @ 27.5 mls/hr Q12H IVPB 11/17/19 13:00 11/24/19 12:59 11/18/19 12:37 Tamsulosin HCl (Flomax) 0.4 mg BID ORAL 11/14/19 09:00 12/09/19 20:59 11/15/19 08:57 Viktor Miranda MD November 18, 2019 13:39
[2019-11-18] MEDS: HydrALAZINE 50mg tab ORAL SCH ×2 (14:00→22:00)
--- NOTE | 2019-11-18 15:00 | NUR ---
NURSE NOTES: Attempted to insert 12 south k[place] NGT per orders of Dr. Brown. Attempts x [address] Brown, per Dr. Brown informed this nurse they will attempt insertion tomorrow. Noted. Will continue to monitor patient.
--- NOTE | 2019-11-18 15:30 | NUR ---
NURSE NOTES: Attempted to insert colmenares catheter x [address] Mackenzie, resistance felt upon attempt to insert, unable to advance further to bladder. Discontinued procedure to maintain safety. Contacted and informed Dr. Mackenzie unable to insert colmenares catheter, Dr. Mackenzie instructed this nurse to notify Dr. Miller of situation and to request urology consult. Notified Dr. Miller of situation. Dr. Miller acknowledged and ordered Dr. Fleming for urology consult to insert colmenares catheter. Charge nurse made aware. Will continue to monitor patient.
[2019-11-18 16:00] VITALS: BP 144/52
--- NOTE | 2019-11-18 16:34 | Pulmonology Progress Note ---
Assessment/Plan Assessment/Plan IMPRESSION: 1. Fever. Resolved 2. Positive COVID-19 pneumonia. 3. Multiple medical problems. 4. Hypoxemia 5. Renal failure DISCUSSION: Continue current medications and care. Broad spectrum antibiotics. 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 Has positive COVID-19. Has had bump in creatinine Will dc Lasix gtt Bill Westfall M.D. Subjective ROS Limited/Unobtainable: Yes Interval Events: Doing poorly; now on NRBM; keeps taking mask off Constitutional: Reports: fever, other - [id number] HEENT: Repors: no symptoms Respiratory: Reports: shortness of breath Cardiovascular: Reports: no symptoms Gastrointestinal/Abdominal: Reports: other - NPO Genitourinary: Reports: no symptoms Allergies: Coded Allergies: No Known Allergies (Unverified , 05/27/15) Objective Last 24 Hour Vital Signs Date Time Temp Pulse Resp B/P (MAP) Pulse Ox O2 Delivery O2 Flow Rate FiO2 11/18/19 16:00 99.1 96 18 144/52 (82) 100 11/18/19 14:00 149/60 11/18/19 12:00 99.5 91 18 149/60 (89) 100 11/18/19 12:00 91 11/18/19 09:00 Non-Rebreather 15.0 11/18/19 08:00 98.2 91 18 148/73 (98) 100 11/18/19 08:00 87 11/18/19 04:00 89 11/18/19 04:00 98.6 100 16 136/67 (90) 100 11/18/19 00:00 Non-Rebreather 15.0 11/18/19 00:00 99.3 90 16 158/68 (98) 100 11/18/19 00:00 96 11/17/19 21:00 Non-Rebreather 15.0 11/17/19 20:00 98.5 90 16 150/63 (92) 100 11/17/19 20:00 86 11/17/19 16:45 140/85 Intake and Output 11/17/19 11/18/19 19:00 07:00 Intake Total 49.5 ml 192.50 ml Output Total 300 ml 800 ml Balance -250.5 ml -607.50 ml IV Total 49.5 ml 192.50 ml Output Urine Total 300 ml 800 ml General Appearance: no acute distress HEENT: mucous membranes moist Respiratory/Chest: chest wall non-tender, lungs clear Cardiovascular: normal peripheral pulses Abdomen: soft, non tender Extremities: no edema Neurologic/Psychiatric: disoriented Laboratory Tests 11/18/19 04:10: White Blood Count 11.1H, Red Blood Count 2.96L, Hemoglobin 8.7L, Hematocrit 26.1L, Mean Corpuscular Volume 88, Mean Corpuscular Hemoglobin 29.3, Mean Corpuscular Hemoglobin Concent 33.1, Red Cell Distribution Width 13.2, Platelet Count 280, Mean Platelet Volume 5.3L, Neutrophils (%) (Auto) , Lymphocytes (%) ( Auto) , Monocytes (%) (Auto) , Eosinophils (%) (Auto) , Basophils (%) (Auto) , Differential Total Cells Counted 100, Neutrophils % (Manual) 92H, Lymphocytes % (Manual) 5L, Monocytes % (Manual) 3, Eosinophils % (Manual) 0, Basophils % ( Manual) 0, Band Neutrophils 0, Platelet Estimate Adequate, Platelet Morphology Normal, Hypochromasia 2+, Anisocytosis 1+, Spherocytes 1+, Sodium Level 148H, Potassium Level 4.8, Chloride Level 110H, Carbon Dioxide Level 19L, Anion Gap 20H, Blood Urea Nitrogen 50H, Creatinine 3.3H, Estimat Glomerular Filtration Rate 21.5, Glucose Level 215H, Calcium Level 8.8 Current Medications Medications (Trade) Dose Ordered Sig/Mayank Route PRN Reason Start Time Stop Time Status Last Admin Dose Admin Acetaminophen (Tylenol) 500 mg Q4H PRN ORAL Mild Pain/Temp >100.5 11/14/19 09:45 12/08/19 21:44 11/16/19 23:33 Acetaminophen (Tylenol) 650 mg Q4H PRN RECTAL Mild Pain (Pain Scale 1-3) 11/14/19 07:45 12/13/19 19:44 11/17/19 13:10 Aspirin (Ecotrin) 81 mg DAILY ORAL 11/14/19 09:00 12/27/19 08:59 11/15/19 08:57 Atorvastatin Calcium (Lipitor) 20 mg BEDTIME ORAL 11/14/19 21:00 02/10/20 20:59 11/16/19 21:28 Carvedilol (Coreg) 25 mg EVERY 12 HOURS ORAL 11/17/19 09:00 12/17/19 08:59 Clonidine HCl (Catapres TTS-1) 1 patch QWEEK TDERMAL 11/15/19 14:00 02/13/20 13:59 11/15/19 15:13 Clonidine HCl (Catapres Tab) 0.1 mg Q4H PRN ORAL For High Blood Pressure 11/14/19 07:15 02/09/20 15:11 11/16/19 23:32 Dextrose (Dextrose 50%) 25 ml Q30M PRN IV Hypoglycemia 11/14/19 07:15 02/06/20 21:44 Dextrose (Dextrose 50%) 50 ml Q30M PRN IV Hypoglycemia 11/14/19 07:15 02/06/20 21:44 Docusate Sodium (Colace) 100 mg THREE TIMES A DAY ORAL 11/16/19 09:00 12/16/19 08:59 Epoetin Mohit (Epoetin Mohit-EPBX(NON ESRD)) 6,000 unit SUN-SUN-SUN SUBQ 11/14/19 21:00 02/08/20 20:59 11/17/19 22:06 Finasteride (Proscar) 5 mg DAILY ORAL 11/14/19 09:00 02/07/20 08:59 11/15/19 08:56 Furosemide 100 mg/ Dextrose 110 ml @ 8.25 mls/hr [id number] IV 11/17/19 13:00 12/17/19 12:59 11/18/19 16:11 Hydralazine HCl (Apresoline) 10 mg Q2HR PRN IV sbp>160 mmhg 11/17/19 00:15 02/15/20 00:14 11/17/19 03:54 Hydralazine HCl (Apresoline) 50 mg Q8HR ORAL 11/18/19 14:00 02/15/20 08:59 Insulin Aspart (NovoLOG) BEFORE MEALS AND HS SUBQ 11/14/19 11:30 02/07/20 22:59 11/16/19 12:06 Insulin Detemir (Levemir) 14 units Q24H SUBQ 11/14/19 09:00 02/07/20 08:59 11/18/19 10:07 Mirtazapine (Remeron) 7.5 mg BEDTIME ORAL 11/14/19 21:00 02/06/20 22:59 11/16/19 21:28 Nateglinide (Starlix) 120 mg THREE TIMES A DAY ORAL 11/14/19 09:00 12/09/19 08:59 11/15/19 14:05 Nifedipine (Procardia XL) 90 mg DAILY ORAL 11/15/19 09:00 12/15/19 08:59 11/15/19 08:56 Piperacillin Sod/ Tazobactam Sod 3.375 gm/Sodium Chloride 110 ml @ 27.5 mls/hr Q12H IVPB 11/17/19 13:00 11/24/19 12:59 11/18/19 12:37 Tamsulosin HCl (Flomax) 0.4 mg BID ORAL 11/14/19 09:00 12/09/19 20:59 11/15/19 08:57 Bill Westfall MD November 18, 2019 16:34
--- NOTE | 2019-11-18 16:46 | General Progress Note ---
Assessment/Plan Problem List: (1) Sepsis ICD Codes: A41.9 - Sepsis, unspecified organism SNOMED: 28989450 (2) Diabetes ICD Codes: E11.9 - Type 2 diabetes mellitus without complications SNOMED: 88600090 (3) BPH (benign prostatic hyperplasia) ICD Codes: N40.0 - Benign prostatic hyperplasia without lower urinary tract symptoms SNOMED: 704768465 (4) Anemia ICD Codes: D64.9 - Anemia, unspecified SNOMED: 158126854 (5) Acute on chronic renal failure ICD Codes: N17.9 - Acute kidney failure, unspecified; N18.9 - Chronic kidney disease, unspecified SNOMED: 894466377 (6) Fever ICD Codes: R50.9 - Fever, unspecified SNOMED: 518479865 Qualifiers: Qualified Codes: R50.9 - Fever, unspecified (7) Suspected COVID-19 virus infection ICD Codes: Z20.828 - Contact with and (suspected) exposure to other viral communicable diseases SNOMED: 726401860 (8) UTI (urinary tract infection) ICD Codes: N39.0 - Urinary tract infection, site not specified SNOMED: 81413493 Qualifiers: Qualified Codes: N39.0 - Urinary tract infection, site not specified (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 SNOMED: 62510275, 465480346 (10) Hypertension ICD Codes: I10 - Essential (primary) hypertension SNOMED: 17315808 Status: progressing Assessment/Plan: poor po intake ng tube anemia worsening azotemia consulted dr mares for bph since rn couldnt insert foely sepsis encephalopathy uti pna hs intermittent fever is covid positive pna Subjective ROS Limited/Unobtainable: Yes Allergies: Coded Allergies: No Known Allergies (Unverified , 05/27/15) Objective Last 24 Hour Vital Signs Date Time Temp Pulse Resp B/P (MAP) Pulse Ox O2 Delivery O2 Flow Rate FiO2 11/18/19 16:00 99.1 96 18 144/52 (82) 100 11/18/19 14:00 149/60 11/18/19 12:00 99.5 91 18 149/60 (89) 100 11/18/19 12:00 91 11/18/19 09:00 Non-Rebreather 15.0 11/18/19 08:00 98.2 91 18 148/73 (98) 100 11/18/19 08:00 87 11/18/19 04:00 89 11/18/19 04:00 98.6 100 16 136/67 (90) 100 11/18/19 00:00 Non-Rebreather 15.0 11/18/19 00:00 99.3 90 16 158/68 (98) 100 11/18/19 00:00 96 11/17/19 21:00 Non-Rebreather 15.0 11/17/19 20:00 98.5 90 16 150/63 (92) 100 11/17/19 20:00 86 11/17/19 16:45 140/85 Intake and Output 11/17/19 11/18/19 19:00 07:00 Intake Total 49.5 ml 192.50 ml Output Total 300 ml 800 ml Balance -250.5 ml -607.50 ml IV Total 49.5 ml 192.50 ml Output Urine Total 300 ml 800 ml Laboratory Tests 11/18/19 04:10: White Blood Count 11.1H, Red Blood Count 2.96L, Hemoglobin 8.7L, Hematocrit 26.1L, Mean Corpuscular Volume 88, Mean Corpuscular Hemoglobin 29.3, Mean Corpuscular Hemoglobin Concent 33.1, Red Cell Distribution Width 13.2, Platelet Count 280, Mean Platelet Volume 5.3L, Neutrophils (%) (Auto) , Lymphocytes (%) ( Auto) , Monocytes (%) (Auto) , Eosinophils (%) (Auto) , Basophils (%) (Auto) , Differential Total Cells Counted 100, Neutrophils % (Manual) 92H, Lymphocytes % (Manual) 5L, Monocytes % (Manual) 3, Eosinophils % (Manual) 0, Basophils % ( Manual) 0, Band Neutrophils 0, Platelet Estimate Adequate, Platelet Morphology Normal, Hypochromasia 2+, Anisocytosis 1+, Spherocytes 1+, Sodium Level 148H, Potassium Level 4.8, Chloride Level 110H, Carbon Dioxide Level 19L, Anion Gap 20H, Blood Urea Nitrogen 50H, Creatinine 3.3H, Estimat Glomerular Filtration Rate 21.5, Glucose Level 215H, Calcium Level 8.8 Height (Feet): 5 Height (Inches): 10.00 Weight (Pounds): 196 Aliyah Miller MD November 18, 2019 16:46
--- NOTE | 2019-11-18 16:57 | NUR ---
NURSE NOTES: Dr. Fleming called back nurse station, informed me they will be in as soon as possible. Urology cart ready by patient's room. Noted. Will continue to monitor patient.
--- NOTE | 2019-11-18 18:05 | NUR ---
NURSE NOTES: COVID-19 swab sample taken to lab. Received by lab personnel.
--- NOTE | 2019-11-18 18:49 | NUR ---
NURSE NOTES: Patient noted with BiPAP 16/6 FiO2 100% order, no indication when to put on BiPAP. Patient is on non-breather mask 15L 100%. Called and left message with Dr. Westfall regarding order clarifications for BiPAP order. Charge nurse made aware. Will continue to monitor patient.
--- NOTE | 2019-11-18 19:20 | NUR ---
NURSE NOTES: Received report from Derek Wiseman RN. Patient asleep, afebrile and has no respiratory distress noted. On NRB at 15lpm with Sa02 of 100% intact. With Right wrist 20g and right forearm 22 g IV lines intact and asymptomatic. With condom catheter to urine bag draining well. Bed rails are up. Head of bed elevated
--- NOTE | 2019-11-18 19:27 | NUR ---
HAND-OFF: Report given to BENOIT Doty.
[2019-11-18 20:00] VITALS: BP 140/72
--- NOTE | 2019-11-18 20:45 | NUR ---
NURSE NOTES: Patient was seen by Dr Fleming for FC insertion with urine bag. Patient tolerated well. No adverse changes noted.
[2019-11-18] MEDS: Atorvastatin 20mg tab ORAL SCH (21:00)
--- NOTE | 2019-11-18 21:15 | NUR ---
NURSE NOTES: Patient unable to take medications. Pt spitting the apple sauce with medications out
--- NOTE | 2019-11-18 21:44 | Consultation ---
DATE OF CONSULTATION: 11/18/2019 UROLOGY CONSULTATION ATTENDING/ PHYSICIAN: Aliyah Miller M.D. CHIEF COMPLAINT/HISTORY OF PRESENT ILLNESS: I was asked by Dr. Miller to evaluate this 89-year-old gentleman regarding history of inability to pass the catheter and increasing renal insufficiency in the setting of renal failure. Briefly, the patient was admitted secondary to high fevers at the residential. The patient had evidence of elevated troponin and renal failure as well on admission here. There was also evidence of urinary tract infection. The patient has ruled in for COVID-19. Staff could not pass the catheter and as such I was asked to do so. The patient cannot provide any useful information and most of the information was gathered from the chart. PAST MEDICAL HISTORY: 1. BPH. 2. Organic brain syndrome. 3. GERD. 4. Urinary retention. 5. Diabetes type 2. 6. Hypertension. 7. Depression. 8. COVID-19 positive on this admission. PAST SURGICAL HISTORY: Possible suprapubic catheter in the past. MEDICATIONS: Please see the chart for current medications and administration details. ALLERGIES: No known drug allergies. SOCIAL HISTORY: Unremarkable for tobacco, alcohol, or drug use. FAMILY HISTORY: Noncontributory. REVIEW OF SYSTEMS: A 14-system review of systems cannot be done as the patient cannot cooperate with questioning. PHYSICAL EXAMINATION: GENERAL: The patient is an elderly gentleman, awake and somewhat alert, not oriented, in no obvious distress. HEENT: NC/AT. EOMI. Oropharynx clear. NECK: Supple. Full range of motion. CHEST: Within normal limits. ABDOMEN: Soft, nontender, and nondistended. EXTREMITIES: Warm and well perfused. No cyanosis, clubbing, or edema. BACK: No CVA tenderness appreciable. NEUROLOGIC: Notable for dementia and organic brain syndrome. The patient cannot cooperate with the remainder of the exam. GENITOURINARY: Uncircumcised male phallus. There is mild . There are bilateral descended testes and cord structures with no masses or tenderness to palpation. LABORATORY DATA: White blood cell count 11.1, hematocrit 26.1, platelets 280. PT, PTT, and INR within normal limits. Sodium 148, potassium 4.8, chloride 110, bicarb 19, BUN 50, creatinine 3.3 up from 2.5 range on admission. Glucose 215. Calcium 8.8. LFTs notable for increased AST of 55, otherwise within normal limits. Urinalysis, specific gravity 1.010, pH 6.5. Dip test notable for 3+ protein, 4+ blood, 3+ leukocyte esterase. Microanalysis with 2 to 4 red and 40 to 60 white blood cells per high-power field, many bacteria seen. Urine culture with E. coli resistant to ampicillin and levofloxacin. MRSA culture notable for MRSA. COVID-19 positive. Blood cultures, no growth. DIAGNOSTIC IMAGING: Renal ultrasound without hydronephrosis or appreciable renal stone. There is normal renal echogenicity. There are bilateral renal cysts. ASSESSMENT AND PLAN: In summary, the patient is a 89-year-old gentleman with history of renal insufficiency and elevated troponin presenting with fevers. The staff could not pass the catheter. Physical exam reveals demented gentleman with some phimosis. Laboratory data is notable for renal insufficiency and COVID-19 positive status. Renal ultrasound is unremarkable. At the bedside, with some difficulty I was able to negotiate a 14-Spanish coude catheter into the patient's bladder. This returned clear yellow urine output. It was inflated and left to gravity drainage. He can be kept in place as necessary. Thank you for allowing me to participate in the care of this unfortunate gentleman. Please do not hesitate to contact me with any questions that you may further have regarding his care. I will see him with you as needed. Yvon Fleming M.D. DR: Valdez JOB#: [id number] CC:
--- NOTE | 2019-11-18 22:54 | Psych Consult Progress Note ---
Psychiatry Progress Note Psychiatry Progress Note Medications Current Medications Medications (Trade) Dose Ordered Sig/Mayank Route PRN Reason Start Time Stop Time Status Last Admin Dose Admin Acetaminophen (Tylenol) 500 mg Q4H PRN ORAL Mild Pain/Temp >100.5 11/14/19 09:45 12/08/19 21:44 11/16/19 23:33 Acetaminophen (Tylenol) 650 mg Q4H PRN RECTAL Mild Pain (Pain Scale 1-3) 11/14/19 07:45 12/13/19 19:44 11/17/19 13:10 Aspirin (Ecotrin) 81 mg DAILY ORAL 11/14/19 09:00 12/27/19 08:59 11/15/19 08:57 Atorvastatin Calcium (Lipitor) 20 mg BEDTIME ORAL 11/14/19 21:00 02/10/20 20:59 11/16/19 21:28 Carvedilol (Coreg) 25 mg EVERY 12 HOURS ORAL 11/17/19 09:00 12/17/19 08:59 Clonidine HCl (Catapres TTS-1) 1 patch QWEEK TDERMAL 11/15/19 14:00 02/13/20 13:59 11/15/19 15:13 Clonidine HCl (Catapres Tab) 0.1 mg Q4H PRN ORAL For High Blood Pressure 11/14/19 07:15 02/09/20 15:11 11/16/19 23:32 Dextrose (Dextrose 50%) 25 ml Q30M PRN IV Hypoglycemia 11/14/19 07:15 02/06/20 21:44 Dextrose (Dextrose 50%) 50 ml Q30M PRN IV Hypoglycemia 11/14/19 07:15 02/06/20 21:44 Docusate Sodium (Colace) 100 mg THREE TIMES A DAY ORAL 11/16/19 09:00 12/16/19 08:59 Epoetin Mohit (Epoetin Mohit-EPBX(NON ESRD)) 6,000 unit SUN-SUN-SUN SUBQ 11/14/19 21:00 02/08/20 20:59 11/17/19 22:06 Finasteride (Proscar) 5 mg DAILY ORAL 11/14/19 09:00 02/07/20 08:59 11/15/19 08:56 Hydralazine HCl (Apresoline) 10 mg Q2HR PRN IV sbp>160 mmhg 11/17/19 00:15 02/15/20 00:14 11/17/19 03:54 Hydralazine HCl (Apresoline) 50 mg Q8HR ORAL 11/18/19 14:00 02/15/20 08:59 Insulin Aspart (NovoLOG) BEFORE MEALS AND HS SUBQ 11/14/19 11:30 02/07/20 22:59 11/16/19 12:06 Insulin Detemir (Levemir) 14 units Q24H SUBQ 11/14/19 09:00 02/07/20 08:59 11/18/19 10:07 Mirtazapine (Remeron) 7.5 mg BEDTIME ORAL 11/14/19 21:00 02/06/20 22:59 11/16/19 21:28 Nateglinide (Starlix) 120 mg THREE TIMES A DAY ORAL 11/14/19 09:00 12/09/19 08:59 11/15/19 14:05 Nifedipine (Procardia XL) 90 mg DAILY ORAL 11/15/19 09:00 12/15/19 08:59 11/15/19 08:56 Piperacillin Sod/ Tazobactam Sod 3.375 gm/Sodium Chloride 110 ml @ 27.5 mls/hr Q12H IVPB 11/17/19 13:00 11/24/19 12:59 11/18/19 12:37 Tamsulosin HCl (Flomax) 0.4 mg BID ORAL 11/14/19 09:00 12/09/19 20:59 11/15/19 08:57 Neurological/Psychiatric: Reports: anxiety Allergies: Coded Allergies: No Known Allergies (Unverified , 05/27/15) Objective Data Height (Feet): 5 Height (Inches): 10.00 Weight (Pounds): 196 General Appearance: confused, agitated Additional Comments: waxing and waning of consciousness. Mood is agitated. Affect is flat. Thought process, there is a paucity of thought content. Thought content, no suicidal or homicidal ideation. Cognition is impaired. Insight and judgment impaired. Assessment/Plan Status: progressing Assessment/Plan: ASSESSMENT: 1. Dementia. 2. Major depressive disorder. PLAN: 1. Continue the Remeron. 2. Soft restraints. The patient may need p.r.n. medication. Alexis Frey MD November 18, 2019 22:54
--- NOTE | 2019-11-18 23:37 | Cardiology Progress Note ---
Assessment/Plan Assessment/Plan 1. Non-sustained ventricular tachycardia, keep Mg level at 2.1, continue coreg. 2. Elevated troponin I level in this patient likely acute HFpEF in view of CKD, HTN and age. Continue ASA and statins. 3. Severe with HERMINIO at 0.8 cm2. Avoid potent diuretics and afterload reducers. 4. DM, continue ASA and statins. 5. Hypertension secondary renal parenchymal disease, well controlled, continue hydralazine, nifedipine and clonidine patch. 6. CKD with MISAEL, creat up to 3.3. 7. COVID-19 pneumonia on Ceftriaxone. Subjective Subjective Sinus tachycardia at rate of 100. On non-rebreather mask. Objective Last 24 Hour Vital Signs Date Time Temp Pulse Resp B/P (MAP) Pulse Ox O2 Delivery O2 Flow Rate FiO2 11/18/19 22:00 127/53 11/18/19 21:00 Non-Rebreather 15.0 11/18/19 21:00 100 140/72 11/18/19 20:26 87 20 100 Nasal Cannula 4.0 36 11/18/19 20:00 99.7 100 18 140/72 (94) 100 11/18/19 20:00 15.0 100 11/18/19 19:27 92 11/18/19 16:00 90 11/18/19 16:00 99.1 96 18 144/52 (82) 100 11/18/19 14:00 149/60 11/18/19 12:00 99.5 91 18 149/60 (89) 100 11/18/19 12:00 91 11/18/19 12:00 15.0 100 11/18/19 09:00 Non-Rebreather 15.0 11/18/19 08:00 15.0 100 11/18/19 08:00 98.2 91 18 148/73 (98) 100 11/18/19 08:00 87 11/18/19 04:00 89 11/18/19 04:00 98.6 100 16 136/67 (90) 100 11/18/19 00:00 Non-Rebreather 15.0 11/18/19 00:00 99.3 90 16 158/68 (98) 100 11/18/19 00:00 96 Intake and Output 11/17/19 11/18/19 19:00 07:00 Intake Total 49.5 ml 192.50 ml Output Total 300 ml 800 ml Balance -250.5 ml -607.50 ml IV Total 49.5 ml 192.50 ml Output Urine Total 300 ml 800 ml 2D Echo: EF 55%, HERMINIO 0.8cm2, RVSP 48, mod MR, Mild AR/NH, Grade I LVDD Laboratory Tests Test 11/18/19 04:10 White Blood Count 11.1 K/UL (4.8-10.8) H Red Blood Count 2.96 M/UL (4.70-6.10) L Hemoglobin 8.7 G/DL (14.2-18.0) L Hematocrit 26.1 % (42.0-52.0) L Mean Corpuscular Volume 88 FL (80-99) Mean Corpuscular Hemoglobin 29.3 PG (27.0-31.0) Mean Corpuscular Hemoglobin Concent 33.1 G/DL (32.0-36.0) Red Cell Distribution Width 13.2 % (11.6-14.8) Platelet Count 280 K/UL (150-450) Mean Platelet Volume 5.3 FL (6.5-10.1) L Neutrophils (%) (Auto) % (45.0-75.0) Lymphocytes (%) (Auto) % (20.0-45.0) Monocytes (%) (Auto) % (1.0-10.0) Eosinophils (%) (Auto) % (0.0-3.0) Basophils (%) (Auto) % (0.0-2.0) Differential Total Cells Counted 100 Neutrophils % (Manual) 92 % (45-75) H Lymphocytes % (Manual) 5 % (20-45) L Monocytes % (Manual) 3 % (1-10) Eosinophils % (Manual) 0 % (0-3) Basophils % (Manual) 0 % (0-2) Band Neutrophils 0 % (0-8) Platelet Estimate Adequate Platelet Morphology Normal Hypochromasia 2+ Anisocytosis 1+ Spherocytes 1+ Sodium Level 148 MMOL/L (136-145) H Potassium Level 4.8 MMOL/L (3.5-5.1) Chloride Level 110 MMOL/L (98-107) H Carbon Dioxide Level 19 MMOL/L (21-32) L Anion Gap 20 mmol/L (5-15) H Blood Urea Nitrogen 50 mg/dL (7-18) H Creatinine 3.3 MG/DL (0.55-1.30) H Estimat Glomerular Filtration Rate 21.5 mL/min (>60) Glucose Level 215 MG/DL (74-106) H Calcium Level 8.8 MG/DL (8.5-10.1) Objective HEENT: Atraumatic and normocephalic. Anicteric. Pupils are equal, round, and reactive to light and accommodation. Extraocular muscles intact. NECK: JVP less than 5 cm. No carotid bruit. Carotid upstrokes 2+ bilaterally. CARDIOVASCULAR: Normal S1, S2. Regular rate and rhythm. 2/6 ESM at LSB, gallops, or rubs. PMI is at fourth intercostal space at the midclavicular line. LUNGS: Bibasilar crackles with diminished both lungs. ABDOMEN: Soft, nontender, nondistended. No hepatosplenomegaly. Positive bowel sounds. EXTREMITIES: No evidence of edema, clubbing, or cyanosis. Dick Payan MD November 18, 2019 23:37
[2019-11-19] VITALS: BP 134/55
[2019-11-19] MEDS: Piperacillin/Tazobactam 3.375 GM in NS 110 ML IVPB SCH ×2 (00:20→12:21)
--- NOTE | 2019-11-19 01:11 | NUR ---
NURSE NOTES: Patient asleep in bed, afebrile and has no respiratory distress. Head of bed elevated. Bed rails are up. Bed in lowest position and locked. Continue to monitor the patient
[2019-11-19 04:00] VITALS: BP 132/56
--- NOTE | 2019-11-19 04:30 | NUR ---
NURSE NOTES: Patient asleep and maintaining Sat02 at 100% via nasal cannula. No respiratory distress noted to patient. Tolerated well. Continue to monitor the patient. Bipap order needs to follow up with Dr Westfall if pt needed PRN or continuous.
[2019-11-19] MEDS: HydrALAZINE 50mg tab ORAL SCH ×3 (05:30→21:50)
[2019-11-19] MEDS: NovoLOG Insulin Flexpen SUBQ SCH ×4 (06:27→20:26)
--- NOTE | 2019-11-19 07:12 | NUR ---
NURSE NOTES: Received report from BENOIT Doty. Patient is resting in bed, in stable condition. No s/sx of SOB, breathing is even and unlabored, 4L NC SpO2 100%. Patient is sleeping, observed no presence of pain or discomfort at this time. Hitchcock catheter is patent and draining, yellow clear liquid noted. Patient is on bilateral soft wrist restraints for safety, assessments shows pulse present, no edema noted, able to articulate, skin integrity intact. Bed is in lowest position, brakes engaged. Call light is kept within easy reach. Will continue to monitor patient.
--- NOTE | 2019-11-19 07:13 | NUR ---
HAND-OFF: Report given to Derek Jj RN. Pt stable and asleep in bed. Continue current care plan.
[2019-11-19 07:43] VITALS: BP 143/53
[2019-11-19] MEDS: Aspirin EC 81mg tab ORAL SCH (08:00)
[2019-11-19] MEDS: Carvedilol 25mg Tab ORAL SCH ×2 (08:00→20:25)
[2019-11-19] MEDS: Tamsulosin 0.4mg cap ORAL SCH ×2 (08:00→17:17)
[2019-11-19] MEDS: Docusate 100mg/10ml Liq ORAL SCH ×3 (08:00→17:17)
[2019-11-19] MEDS: Levemir Flexpen SUBQ SCH (08:06)
--- NOTE | 2019-11-19 08:55 | Hematology/Onc Progress Note ---
Assessment/Plan Assessment/Plan Assess/Recs: # Pancytopenia -- initially with Anemia of chronic disease due to underlying chronic medical issues, multifactorial, also covie19 related, noted also with uti and sepsis --> Anemia workup has been ordered spep neg, ferritin is 117 --> No evidence of hemolysis is noted, peripheral smear has been reviewed. --> Hgb goal >7. Transfuse prn. --> on epogen --> Medications have been reviewed --> plt 136-->138-->139-->205 --> hgb 7.7-->8.1 -->8.7 --> wbc 3.6-->5-->8.9 --> abx: zosyn --> CT of abdomen pelvis without contrast read by radiology showed bladder thickening and possible cystitis prior admission --> as per id recs # [id number]++ Fever with cough --> covid+ --> iso --> as per id --> on ctx-->zosyn --> on bipap # MISAEL on ckd --> as per renal team # DM nephropathy # BPH # Hypokalemia --> replete with k as needed The timing of this note does not necessarily reflect the time of the patient was seen. Greatly appreciate consultation! Subjective Allergies: Coded Allergies: No Known Allergies (Unverified , 05/27/15) Subjective 11/09 labs reviewed, no bleeding, meds noted, seen by cards, cbc pendin 11/10 labs noted, no bleeding, serology neg, supportive care for covid19 11/11 bp high, hydralazine given overnight, on mirtaazapine, no changes 11/12 on a nrb, no bleeding, meds noted, no night sweats 11/13 blood was given yesterday, overnight, no traction, no night sweats 11/15 sdu, nrb, temp 101, labs reviewed, on cftx 11/16 labs are reviewed, no bleeding, fm changed to bipap, hgb 8.7 11/17 is on 15l nr, no bleeding, no night sweats, labs reviewed 11/18 sdu, labs pending, restraints, nc 4L Objective Objective Current Medications Medications (Trade) Dose Ordered Sig/Mayank Route PRN Reason Start Time Stop Time Status Last Admin Dose Admin Acetaminophen (Tylenol) 500 mg Q4H PRN ORAL Mild Pain/Temp >100.5 11/14/19 09:45 12/08/19 21:44 11/16/19 23:33 Acetaminophen (Tylenol) 650 mg Q4H PRN RECTAL Mild Pain (Pain Scale 1-3) 11/14/19 07:45 12/13/19 19:44 11/17/19 13:10 Aspirin (Ecotrin) 81 mg DAILY ORAL 11/14/19 09:00 12/27/19 08:59 11/15/19 08:57 Atorvastatin Calcium (Lipitor) 20 mg BEDTIME ORAL 11/14/19 21:00 02/10/20 20:59 11/16/19 21:28 Carvedilol (Coreg) 25 mg EVERY 12 HOURS ORAL 11/17/19 09:00 12/17/19 08:59 Clonidine HCl (Catapres TTS-1) 1 patch QWEEK TDERMAL 11/15/19 14:00 02/13/20 13:59 11/15/19 15:13 Clonidine HCl (Catapres Tab) 0.1 mg Q4H PRN ORAL For High Blood Pressure 11/14/19 07:15 02/09/20 15:11 11/16/19 23:32 Dextrose (Dextrose 50%) 25 ml Q30M PRN IV Hypoglycemia 11/14/19 07:15 02/06/20 21:44 Dextrose (Dextrose 50%) 50 ml Q30M PRN IV Hypoglycemia 11/14/19 07:15 02/06/20 21:44 Docusate Sodium (Colace) 100 mg THREE TIMES A DAY ORAL 11/16/19 09:00 12/16/19 08:59 Epoetin Mohit (Epoetin Mohit-EPBX(NON ESRD)) 6,000 unit SUN-SUN-SUN SUBQ 11/14/19 21:00 02/08/20 20:59 11/17/19 22:06 Finasteride (Proscar) 5 mg DAILY ORAL 11/14/19 09:00 02/07/20 08:59 11/15/19 08:56 Hydralazine HCl (Apresoline) 10 mg Q2HR PRN IV sbp>160 mmhg 11/17/19 00:15 02/15/20 00:14 11/17/19 03:54 Hydralazine HCl (Apresoline) 50 mg Q8HR ORAL 11/18/19 14:00 02/15/20 08:59 Insulin Aspart (NovoLOG) BEFORE MEALS AND HS SUBQ 11/14/19 11:30 02/07/20 22:59 11/16/19 12:06 Insulin Detemir (Levemir) 14 units Q24H SUBQ 11/14/19 09:00 02/07/20 08:59 11/19/19 08:06 Mirtazapine (Remeron) 7.5 mg BEDTIME ORAL 11/14/19 21:00 02/06/20 22:59 11/16/19 21:28 Nateglinide (Starlix) 120 mg THREE TIMES A DAY ORAL 11/14/19 09:00 12/09/19 08:59 11/15/19 14:05 Nifedipine (Procardia XL) 90 mg DAILY ORAL 11/15/19 09:00 12/15/19 08:59 11/15/19 08:56 Piperacillin Sod/ Tazobactam Sod 3.375 gm/Sodium Chloride 110 ml @ 27.5 mls/hr Q12H IVPB 11/17/19 13:00 11/24/19 12:59 11/19/19 00:20 Tamsulosin HCl (Flomax) 0.4 mg BID ORAL 11/14/19 09:00 12/09/19 20:59 11/15/19 08:57 Last 24 Hour Vital Signs Date Time Temp Pulse Resp B/P (MAP) Pulse Ox O2 Delivery O2 Flow Rate FiO2 11/19/19 07:43 99.9 96 18 143/53 (83) 100 11/19/19 05:30 132/56 11/19/19 04:00 99.0 102 18 132/56 (81) 100 11/19/19 04:00 4.0 11/19/19 03:52 94 11/19/19 00:00 100.2 95 18 134/55 (81) 100 11/18/19 23:35 109 11/18/19 22:00 127/53 11/18/19 21:00 Non-Rebreather 15.0 11/18/19 21:00 100 140/72 11/18/19 20:26 87 20 100 Nasal Cannula 4.0 36 11/18/19 20:00 99.7 100 18 140/72 (94) 100 11/18/19 20:00 15.0 100 11/18/19 19:27 92 11/18/19 16:00 90 11/18/19 16:00 99.1 96 18 144/52 (82) 100 11/18/19 14:00 149/60 11/18/19 12:00 99.5 91 18 149/60 (89) 100 11/18/19 12:00 91 11/18/19 12:00 15.0 100 11/18/19 09:00 Non-Rebreather 15.0 11/18/19 08:00 15.0 100 11/18/19 08:00 98.2 91 18 148/73 (98) 100 11/18/19 08:00 87 11/18/19 04:00 89 11/18/19 04:00 98.6 100 16 136/67 (90) 100 11/18/19 00:00 Non-Rebreather 15.0 11/18/19 00:00 99.3 90 16 158/68 (98) 100 11/18/19 00:00 96 11/17/19 21:00 Non-Rebreather 15.0 11/17/19 20:00 98.5 90 16 150/63 (92) 100 11/17/19 20:00 86 11/17/19 16:45 140/85 11/17/19 16:00 89 11/17/19 16:00 98.5 89 18 142/73 (96) 100 11/17/19 16:00 Non-Rebreather 15.0 11/17/19 12:39 158/69 11/17/19 12:00 Non-Rebreather 15.0 11/17/19 12:00 82 11/17/19 11:50 99.1 92 18 158/69 (98) 100 11/17/19 08:59 83 131/79 11/17/19 08:59 83 131/79 11/17/19 08:58 131/79 Intake and Output 11/18/19 11/19/19 19:00 07:00 Intake Total 110.0 ml 110.0 ml Output Total 600 ml 200 ml Balance -490.0 ml -90.0 ml IV Total 110.0 ml 110.0 ml Output Urine Total 600 ml 200 ml # Voids 2 Labs Test 11/17/19 06:41 11/17/19 08:41 11/18/19 04:10 White Blood Count 9.7 K/UL (4.8-10.8) 11.1 K/UL (4.8-10.8) Red Blood Count 3.03 M/UL (4.70-6.10) 2.96 M/UL (4.70-6.10) Hemoglobin 8.7 G/DL (14.2-18.0) 8.7 G/DL (14.2-18.0) Hematocrit 26.2 % (42.0-52.0) 26.1 % (42.0-52.0) Mean Corpuscular Volume 87 FL (80-99) 88 FL (80-99) Mean Corpuscular Hemoglobin 28.7 PG (27.0-31.0) 29.3 PG (27.0-31.0) Mean Corpuscular Hemoglobin Concent 33.2 G/DL (32.0-36.0) 33.1 G/DL (32.0-36.0) Red Cell Distribution Width 12.7 % (11.6-14.8) 13.2 % (11.6-14.8) Platelet Count 264 K/UL (150-450) 280 K/UL (150-450) Mean Platelet Volume 5.7 FL (6.5-10.1) 5.3 FL (6.5-10.1) Neutrophils (%) (Auto) % (45.0-75.0) % (45.0-75.0) Lymphocytes (%) (Auto) % (20.0-45.0) % (20.0-45.0) Monocytes (%) (Auto) % (1.0-10.0) % (1.0-10.0) Eosinophils (%) (Auto) % (0.0-3.0) % (0.0-3.0) Basophils (%) (Auto) % (0.0-2.0) % (0.0-2.0) Differential Total Cells Counted 100 100 Neutrophils % (Manual) 90 % (45-75) 92 % (45-75) Lymphocytes % (Manual) 2 % (20-45) 5 % (20-45) Monocytes % (Manual) 8 % (1-10) 3 % (1-10) Eosinophils % (Manual) 0 % (0-3) 0 % (0-3) Basophils % (Manual) 0 % (0-2) 0 % (0-2) Band Neutrophils 0 % (0-8) 0 % (0-8) Platelet Estimate Adequate Adequate Platelet Morphology Normal Normal Hypochromasia 2+ 2+ Anisocytosis 1+ 1+ Sodium Level 146 MMOL/L (136-145) 148 MMOL/L (136-145) Potassium Level 4.2 MMOL/L (3.5-5.1) 4.8 MMOL/L (3.5-5.1) Chloride Level 111 MMOL/L (98-107) 110 MMOL/L (98-107) Carbon Dioxide Level 21 MMOL/L (21-32) 19 MMOL/L (21-32) Anion Gap 14 mmol/L (5-15) 20 mmol/L (5-15) Blood Urea Nitrogen 41 mg/dL (7-18) 50 mg/dL (7-18) Creatinine 2.7 MG/DL (0.55-1.30) 3.3 MG/DL (0.55-1.30) Estimat Glomerular Filtration Rate 27.1 mL/min (>60) 21.5 mL/min (>60) Glucose Level 133 MG/DL (74-106) 215 MG/DL (74-106) Calcium Level 8.5 MG/DL (8.5-10.1) 8.8 MG/DL (8.5-10.1) Arterial Blood pH 7.277 (7.350-7.450) Arterial Blood Partial Pressure CO2 41.9 mmHg (35.0-45.0) Arterial Blood Partial Pressure O2 200.0 mmHg (75.0-100.0) Arterial Blood HCO3 19.1 mmol/L (22.0-26.0) Arterial Blood Oxygen Saturation 98.9 % (95-100) Arterial Blood Base Excess -7.2 (-2-2) Dc Test Positive Spherocytes 1+ Height (Feet): 5 Height (Inches): 10.00 Weight (Pounds): 200 Objective vitals: noted ENT: dry mucus membranes Neck: limited range of motion Respiratory: decreased breath sounds 15l nrm++ Cardiovascular: normal peripheral pulses, rrr Gastrointestinal: normal bowel sounds, soft, tenderness - suprapubic Musculoskeletal: decreased range of motion Neurologic: normal inspection, alert, responsive Psychiatric: normal inspection Skin: normal inspection, normal color Cesar Singh MD November 19, 2019 08:55
--- NOTE | 2019-11-19 10:17 | NUR ---
NURSE NOTES: Dr. Westfall at nurse station, clarified order of BiPAP 16/5 FiO2 100% that order does not indicate when to use, informed MD that patient is currently on 2L NC SpO2 100%. Dr. Westfall acknowledged and ordered to discontinued BiPAP order. Order discontinued. Will continue to monitor patient.
--- NOTE | 2019-11-19 10:42 | NUR ---
RD ASSESSMENT & RECOMMENDATIONS SEE CARE ACTIVITY FOR COMPLETE ASSESSMENT DAILY ESTIMATED NEEDS: Needs based on DM, renal 78.8 abw 25-30 kcals/kg [id number] total kcals 0.8-1.2 g protein/kg 63-95 g total protein Fluid per MD mL/kg total fluid mLs NUTRITION DIAGNOSIS: * Swallowing difficulty R/T dysphagia, respiratory status as evidenced by DISEASE EDUCATION SPECIALIST recommends NPO, nonoral feeding at this time, awaiting NGT insertion. * Decreased sodium needs r/t renal dyfunction and cardiac history as evidenced by worsening renal failure per MD, creat now 3.3, pt w/ elev BP as well (169/94) (INACTIVE) CURRENT DIET:NPO CURRENT TF:Glucerna 1.5 @ 45ml/hr x 24 hrs ordered, without GI access at this time PO DIET RECOMMENDATIONS: WHEN ABLE TO TOLERATE PO-> CCHO MED/ LOW NA (texture per DISEASE EDUCATION SPECIALIST) ENTERAL NUTRITION RECOMMENDATIONS: Glucerna 1.5 @ 45ml/hr x 24 hrs to provide 1080ml, 1620kcal, 89g prot, 820ml free water * W/ GI access, initiate Glucerna 1.5 @ 15ml/hr x 6hrs * Advance q 10ml q 4-6 hrs as tolerated to goal rate * HOB Over 30 degrees/ water flush per MD * TF @ goal will meet 82% est kcal and 100% est prot needs W/ improved renal fxn, increase goal rate to 55ml/hr x 24 hrs to better meet needs -> 1320ml, 1980kcal, 108g prot ADDITIONAL RECOMMENDATIONS: 1) CALIBRATED BEDSCALE WT FOR ACCURATE CBW 2) W/ TF initiation, monitor lytes daily, replete as needed 3) Monitor renal fxn and lytes, need for renal TF/diet restriction (creat 3.3) 4) Monitor DISEASE EDUCATION SPECIALIST eval and rec, ability to start oral diet
--- NOTE | 2019-11-19 10:59 | Pulmonology Progress Note ---
Assessment/Plan Assessment/Plan IMPRESSION: 1. Fever. Resolved 2. Positive COVID-19 pneumonia. 3. Multiple medical problems. 4. Hypoxemia 5. Renal failure DISCUSSION: Continue current medications and care. Broad spectrum antibiotics. I will follow as substance abuse clinician. Has positive COVID-19. Has had bump in creatinine Is off Lasix gtt Oxygenation better after diuresis Bill Westfall M.D. Subjective ROS Limited/Unobtainable: Yes Interval Events: Doing better; now on nasal O2; BiPAP dc Constitutional: Reports: fever, other - [id number] HEENT: Repors: no symptoms Respiratory: Reports: shortness of breath Cardiovascular: Reports: no symptoms Gastrointestinal/Abdominal: Reports: other - NPO Genitourinary: Reports: no symptoms Allergies: Coded Allergies: No Known Allergies (Unverified , 05/27/15) Objective Last 24 Hour Vital Signs Date Time Temp Pulse Resp B/P (MAP) Pulse Ox O2 Delivery O2 Flow Rate FiO2 11/19/19 09:47 98.6 11/19/19 09:00 Non-Rebreather 15.0 11/19/19 08:00 94 11/19/19 08:00 2.0 11/19/19 07:43 99.9 96 18 143/53 (83) 100 11/19/19 05:30 132/56 11/19/19 04:00 99.0 102 18 132/56 (81) 100 11/19/19 04:00 4.0 11/19/19 03:52 94 11/19/19 00:00 100.2 95 18 134/55 (81) 100 11/18/19 23:35 109 11/18/19 22:00 127/53 11/18/19 21:00 Non-Rebreather 15.0 11/18/19 21:00 100 140/72 11/18/19 20:26 87 20 100 Nasal Cannula 4.0 36 11/18/19 20:00 99.7 100 18 140/72 (94) 100 11/18/19 20:00 15.0 100 11/18/19 19:27 92 11/18/19 16:00 90 11/18/19 16:00 99.1 96 18 144/52 (82) 100 11/18/19 14:00 149/60 11/18/19 12:00 99.5 91 18 149/60 (89) 100 11/18/19 12:00 91 11/18/19 12:00 15.0 100 Intake and Output 11/18/19 11/19/19 19:00 07:00 Intake Total 110.0 ml 110.0 ml Output Total 600 ml 200 ml Balance -490.0 ml -90.0 ml IV Total 110.0 ml 110.0 ml Output Urine Total 600 ml 200 ml # Voids 2 General Appearance: no acute distress HEENT: mucous membranes moist Respiratory/Chest: chest wall non-tender, lungs clear Cardiovascular: normal peripheral pulses Abdomen: soft, non tender Extremities: no edema Neurologic/Psychiatric: disoriented Current Medications Medications (Trade) Dose Ordered Sig/Mayank Route PRN Reason Start Time Stop Time Status Last Admin Dose Admin Acetaminophen (Tylenol) 500 mg Q4H PRN ORAL Mild Pain/Temp >100.5 11/14/19 09:45 12/08/19 21:44 11/16/19 23:33 Acetaminophen (Tylenol) 650 mg Q4H PRN RECTAL Mild Pain (Pain Scale 1-3) 11/14/19 07:45 12/13/19 19:44 11/17/19 13:10 Aspirin (Ecotrin) 81 mg DAILY ORAL 11/14/19 09:00 12/27/19 08:59 11/15/19 08:57 Atorvastatin Calcium (Lipitor) 20 mg BEDTIME ORAL 11/14/19 21:00 02/10/20 20:59 11/16/19 21:28 Carvedilol (Coreg) 25 mg EVERY 12 HOURS ORAL 11/17/19 09:00 12/17/19 08:59 Clonidine HCl (Catapres TTS-1) 1 patch QWEEK TDERMAL 11/15/19 14:00 02/13/20 13:59 11/15/19 15:13 Clonidine HCl (Catapres Tab) 0.1 mg Q4H PRN ORAL For High Blood Pressure 11/14/19 07:15 02/09/20 15:11 11/16/19 23:32 Dextrose (Dextrose 50%) 25 ml Q30M PRN IV Hypoglycemia 11/14/19 07:15 02/06/20 21:44 Dextrose (Dextrose 50%) 50 ml Q30M PRN IV Hypoglycemia 11/14/19 07:15 02/06/20 21:44 Docusate Sodium (Colace) 100 mg THREE TIMES A DAY ORAL 11/16/19 09:00 12/16/19 08:59 Epoetin Mohit (Epoetin Mohit-EPBX(NON ESRD)) 6,000 unit SUBQ 11/14/19 21:00 02/08/20 20:59 11/17/19 22:06 Finasteride (Proscar) 5 mg DAILY ORAL 11/14/19 09:00 02/07/20 08:59 11/15/19 08:56 Hydralazine HCl (Apresoline) 10 mg Q2HR PRN IV sbp>160 mmhg 11/17/19 00:15 02/15/20 00:14 11/17/19 03:54 Hydralazine HCl (Apresoline) 50 mg Q8HR ORAL 11/18/19 14:00 02/15/20 08:59 Insulin Aspart (NovoLOG) BEFORE MEALS AND HS SUBQ 11/14/19 11:30 02/07/20 22:59 11/16/19 12:06 Insulin Detemir (Levemir) 14 units Q24H SUBQ 11/14/19 09:00 02/07/20 08:59 11/19/19 08:06 Mirtazapine (Remeron) 7.5 mg BEDTIME ORAL 11/14/19 21:00 02/06/20 22:59 11/16/19 21:28 Nateglinide (Starlix) 120 mg THREE TIMES A DAY ORAL 11/14/19 09:00 12/09/19 08:59 11/15/19 14:05 Nifedipine (Procardia XL) 90 mg DAILY ORAL 11/15/19 09:00 12/15/19 08:59 11/15/19 08:56 Piperacillin Sod/ Tazobactam Sod 3.375 gm/Sodium Chloride 110 ml @ 27.5 mls/hr Q12H IVPB 11/17/19 13:00 11/24/19 12:59 11/19/19 00:20 Tamsulosin HCl (Flomax) 0.4 mg BID ORAL 11/14/19 09:00 12/09/19 20:59 11/15/19 08:57 Bill Westfall MD November 19, 2019 10:59
--- NOTE | 2019-11-19 11:09 | Infectious Diseases Prog Note ---
Assessment/Plan Assessment/Plan IMPRESSION: E. coli UTI COVID19 pneumonia + 11/07, 11/11 diabetes mellitus, hypertension, anemia, Right eye glaucoma. Acute renal failure RECOMMENDATION: Continue Zosyn Family agree with Hydroxychloroquine if symptoms are worse Poor prognosis Will f/u COVID19 test Subjective ROS Limited/Unobtainable: Yes Constitutional: Reports: fever, other - Xe=[id number] Respiratory: Reports: other - off of oxygem mask Neurologic: Reports: confusion, other - on restraint Allergies: Coded Allergies: No Known Allergies (Unverified , 05/27/15) Objective Vital Signs Last 24 Hour Vital Signs Date Time Temp Pulse Resp B/P (MAP) Pulse Ox O2 Delivery O2 Flow Rate FiO2 11/19/19 09:47 98.6 11/19/19 09:00 Non-Rebreather 15.0 11/19/19 08:00 94 11/19/19 08:00 2.0 11/19/19 07:43 99.9 96 18 143/53 (83) 100 11/19/19 05:30 132/56 11/19/19 04:00 99.0 102 18 132/56 (81) 100 11/19/19 04:00 4.0 11/19/19 03:52 94 11/19/19 00:00 100.2 95 18 134/55 (81) 100 11/18/19 23:35 109 11/18/19 22:00 127/53 11/18/19 21:00 Non-Rebreather 15.0 11/18/19 21:00 100 140/72 11/18/19 20:26 87 20 100 Nasal Cannula 4.0 36 11/18/19 20:00 99.7 100 18 140/72 (94) 100 11/18/19 20:00 15.0 100 11/18/19 19:27 92 11/18/19 16:00 90 11/18/19 16:00 99.1 96 18 144/52 (82) 100 11/18/19 14:00 149/60 11/18/19 12:00 99.5 91 18 149/60 (89) 100 11/18/19 12:00 91 11/18/19 12:00 15.0 100 Height (Feet): 5 Height (Inches): 10.00 Weight (Pounds): 200 General Appearance: no acute distress HEENT: mucous membranes moist Respiratory/Chest: other - oxygen by nasal cannula Cardiovascular: normal rate Abdomen: soft, non tender Neurologic/Psychiatric: disoriented Current Medications Medications (Trade) Dose Ordered Sig/Mayank Route PRN Reason Start Time Stop Time Status Last Admin Dose Admin Acetaminophen (Tylenol) 500 mg Q4H PRN ORAL Mild Pain/Temp >100.5 11/14/19 09:45 12/08/19 21:44 11/16/19 23:33 Acetaminophen (Tylenol) 650 mg Q4H PRN RECTAL Mild Pain (Pain Scale 1-3) 11/14/19 07:45 12/13/19 19:44 11/17/19 13:10 Aspirin (Ecotrin) 81 mg DAILY ORAL 11/14/19 09:00 12/27/19 08:59 11/15/19 08:57 Atorvastatin Calcium (Lipitor) 20 mg BEDTIME ORAL 11/14/19 21:00 02/10/20 20:59 11/16/19 21:28 Carvedilol (Coreg) 25 mg EVERY 12 HOURS ORAL 11/17/19 09:00 12/17/19 08:59 Clonidine HCl (Catapres TTS-1) 1 patch QWEEK TDERMAL 11/15/19 14:00 02/13/20 13:59 11/15/19 15:13 Clonidine HCl (Catapres Tab) 0.1 mg Q4H PRN ORAL For High Blood Pressure 11/14/19 07:15 02/09/20 15:11 11/16/19 23:32 Dextrose (Dextrose 50%) 25 ml Q30M PRN IV Hypoglycemia 11/14/19 07:15 02/06/20 21:44 Dextrose (Dextrose 50%) 50 ml Q30M PRN IV Hypoglycemia 11/14/19 07:15 02/06/20 21:44 Docusate Sodium (Colace) 100 mg THREE TIMES A DAY ORAL 11/16/19 09:00 12/16/19 08:59 Epoetin Mohit (Epoetin Mohit-EPBX(NON ESRD)) 6,000 unit SUN-SUN-SUN SUBQ 11/14/19 21:00 02/08/20 20:59 11/17/19 22:06 Finasteride (Proscar) 5 mg DAILY ORAL 11/14/19 09:00 02/07/20 08:59 11/15/19 08:56 Hydralazine HCl (Apresoline) 10 mg Q2HR PRN IV sbp>160 mmhg 11/17/19 00:15 02/15/20 00:14 11/17/19 03:54 Hydralazine HCl (Apresoline) 50 mg Q8HR ORAL 11/18/19 14:00 02/15/20 08:59 Insulin Aspart (NovoLOG) BEFORE MEALS AND HS SUBQ 11/14/19 11:30 02/07/20 22:59 11/16/19 12:06 Insulin Detemir (Levemir) 14 units Q24H SUBQ 11/14/19 09:00 02/07/20 08:59 11/19/19 08:06 Mirtazapine (Remeron) 7.5 mg BEDTIME ORAL 11/14/19 21:00 02/06/20 22:59 11/16/19 21:28 Nateglinide (Starlix) 120 mg THREE TIMES A DAY ORAL 11/14/19 09:00 12/09/19 08:59 11/15/19 14:05 Nifedipine (Procardia XL) 90 mg DAILY ORAL 11/15/19 09:00 12/15/19 08:59 11/15/19 08:56 Piperacillin Sod/ Tazobactam Sod 3.375 gm/Sodium Chloride 110 ml @ 27.5 mls/hr Q12H IVPB 11/17/19 13:00 11/24/19 12:59 11/19/19 00:20 Tamsulosin HCl (Flomax) 0.4 mg BID ORAL 11/14/19 09:00 12/09/19 20:59 11/15/19 08:57 Viktor Miranda MD November 19, 2019 11:09
[2019-11-19 11:34] LABS: BASOPHILS % (AUTO) 0.3 % (0.0-2.0); EOSINOPHILS % (AUTO) 0.1 % (0.0-3.0); HEMATOCRIT 24.9 % (42.0-52.0); MEAN CORPUSCULAR VOLUME 89 FL (80-99); MONOCYTES % (AUTO) 11.1 % (1.0-10.0); NEUTROPHILS % (AUTO) 83.5 % (45.0-75.0); PLATELET COUNT 308 K/UL (150-450); RED BLOOD COUNT 2.79 M/UL (4.70-6.10); RED CELL DISTRIBUTION WIDTH 13.3 % (11.6-14.8); WHITE BLOOD COUNT 10.6 K/UL (4.8-10.8)
[2019-11-19 11:46] LABS: ANION GAP 17 mmol/L (5-15); BLOOD UREA NITROGEN 69 mg/dL (7-18); CALCIUM 8.5 MG/DL (8.5-10.1); CARBON DIOXIDE 21 MMOL/L (21-32); CHLORIDE 112 MMOL/L (98-107); CREATININE 4.8 MG/DL (0.55-1.30); POTASSIUM 4.4 MMOL/L (3.5-5.1); SODIUM 150 MMOL/L (136-145)
[2019-11-19 11:50] LABS: ALANINE AMINOTRANSFERASE 32 U/L (12-78); ALBUMIN 2.2 G/DL (3.4-5.0); ALBUMIN/GLOBULIN RATIO 0.4 (1.0-2.7); ALKALINE PHOSPHATASE 52 U/L (46-116); ASPARTATE AMINO TRANSFERASE 35 U/L (15-37); BILIRUBIN,TOTAL 0.5 MG/DL (0.2-1.0); PHOSPHORUS 4.8 MG/DL (2.5-4.9)
[2019-11-19 12:00] VITALS: BP 134/61
--- NOTE | 2019-11-19 14:13 | General Progress Note ---
Assessment/Plan Status: progressing Assessment/Plan: 1. Hypertension. 2. Diabetes. 3. Anemia. 4. Renal insufficiency. 5. BPH. 6. Dysphagia 7. COVID PNA fu labs pulm CARE try to place NGT again today fu speech will start TF if in proper place Subjective ROS Limited/Unobtainable: No Allergies: Coded Allergies: No Known Allergies (Unverified , 05/27/15) Objective Last 24 Hour Vital Signs Date Time Temp Pulse Resp B/P (MAP) Pulse Ox O2 Delivery O2 Flow Rate FiO2 11/19/19 13:26 134/61 11/19/19 12:00 98.6 96 18 134/61 (85) 100 11/19/19 12:00 92 11/19/19 12:00 2.0 11/19/19 09:47 98.6 11/19/19 09:00 Non-Rebreather 15.0 11/19/19 08:00 94 11/19/19 08:00 2.0 11/19/19 07:43 99.9 96 18 143/53 (83) 100 11/19/19 05:30 132/56 11/19/19 04:00 99.0 102 18 132/56 (81) 100 11/19/19 04:00 4.0 11/19/19 03:52 94 11/19/19 00:00 100.2 95 18 134/55 (81) 100 11/18/19 23:35 109 11/18/19 22:00 127/53 11/18/19 21:00 Non-Rebreather 15.0 11/18/19 21:00 100 140/72 11/18/19 20:26 87 20 100 Nasal Cannula 4.0 36 11/18/19 20:00 99.7 100 18 140/72 (94) 100 11/18/19 20:00 15.0 100 11/18/19 19:27 92 11/18/19 16:00 90 11/18/19 16:00 99.1 96 18 144/52 (82) 100 Intake and Output 11/18/19 11/19/19 19:00 07:00 Intake Total 110.0 ml 110.0 ml Output Total 600 ml 200 ml Balance -490.0 ml -90.0 ml IV Total 110.0 ml 110.0 ml Output Urine Total 600 ml 200 ml # Voids 2 Laboratory Tests 11/19/19 10:35: White Blood Count 10.6, Red Blood Count 2.79L, Hemoglobin 8.0L, Hematocrit 24.9L , Mean Corpuscular Volume 89, Mean Corpuscular Hemoglobin 28.6, Mean Corpuscular Hemoglobin Concent 32.1, Red Cell Distribution Width 13.3, Platelet Count 308, Mean Platelet Volume 5.1L, Neutrophils (%) (Auto) 83.5H, Lymphocytes (%) (Auto) 5.0L, Monocytes (%) (Auto) 11.1H, Eosinophils (%) (Auto) 0.1, Basophils (%) (Auto) 0.3, Sodium Level 150H, Potassium Level 4.4, Chloride Level 112H, Carbon Dioxide Level 21, Anion Gap 17H, Blood Urea Nitrogen 69H, Creatinine 4.8H, Estimat Glomerular Filtration Rate 13.9, Glucose Level 246H, Calcium Level 8.5, Phosphorus Level 4.8, Total Bilirubin 0.5, Aspartate Amino Transf (AST/SGOT) 35, Alanine Aminotransferase (ALT/SGPT) 32, Alkaline Phosphatase 52, Total Protein 7.1, Albumin 2.2L, Globulin 4.9, Albumin/Globulin Ratio 0.4L Height (Feet): 5 Height (Inches): 10.00 Weight (Pounds): 200 General Appearance: no apparent distress EENT: normal ENT inspection Neck: supple Cardiovascular: normal rate Respiratory/Chest: decreased breath sounds Abdomen: normal bowel sounds, non tender, soft Extremities: non-tender Fer Brown MD November 19, 2019 14:13
--- NOTE | 2019-11-19 14:15 | Nephrology Progress Note ---
Assessment/Plan Problem List: (1) Acute on chronic renal failure Assessment: Serum creatinine rising (2) BPH (benign prostatic hyperplasia) (3) Anemia (4) Sepsis (5) COVID-19 virus detected Assessment Mr. Melton is admitted with pneumonia and UTI and exposure to COVID-19 virus, and the test is positive From renal standpoint of view: Acute on chronic renal failure: Serum creatinine has risen from baseline of 1.6- 2.5 Diabetic nephropathy BPH Anemia Hypertension Plan Positive for COVID-19 November 18: Serum creatinine keeps rising Lasix drip was discontinued Blood pressure remained stable Patient has acute renal failure superimposed on chronic renal insufficiency Further rise in serum creatinine will be a reason to initiate dialysis treatment Renal parameters ordered for tomorrow Meanwhile medication list reviewed and no nephrotoxic identified November 17: Patient started on diuresis yesterday due to CHF symptoms Serum creatinine up to 3.3 today We will order a Hitchcock catheter Will adjust blood pressure medication Will discuss with Dr. Westfall Previously: Serum creatinine pito , but seems to be stabilizing and declining, Creatinine down to 2.7 Kidney ultrasound results noted adjust blood pressure medication as the blood pressure has been fluctuating Slow hydration and 1 bolus of albumin Kidney ultrasound results noted Monitor renal parameters Avoid nephrotoxic's Flomax twice daily Antibiotics per ID Will review the 2D echocardiogram and ultrasound which was done previously Per orders Subjective ROS Limited/Unobtainable: No Constitutional: Reports: malaise, weakness Objective Objective Last 24 Hour Vital Signs Date Time Temp Pulse Resp B/P (MAP) Pulse Ox O2 Delivery O2 Flow Rate FiO2 11/19/19 13:26 134/61 11/19/19 12:00 98.6 96 18 134/61 (85) 100 11/19/19 12:00 92 11/19/19 12:00 2.0 11/19/19 09:47 98.6 11/19/19 09:00 Non-Rebreather 15.0 11/19/19 08:00 94 11/19/19 08:00 2.0 11/19/19 07:43 99.9 96 18 143/53 (83) 100 11/19/19 05:30 132/56 11/19/19 04:00 99.0 102 18 132/56 (81) 100 11/19/19 04:00 4.0 11/19/19 03:52 94 11/19/19 00:00 100.2 95 18 134/55 (81) 100 11/18/19 23:35 109 11/18/19 22:00 127/53 11/18/19 21:00 Non-Rebreather 15.0 11/18/19 21:00 100 140/72 11/18/19 20:26 87 20 100 Nasal Cannula 4.0 36 11/18/19 20:00 99.7 100 18 140/72 (94) 100 11/18/19 20:00 15.0 100 11/18/19 19:27 92 11/18/19 16:00 90 11/18/19 16:00 99.1 96 18 144/52 (82) 100 Intake and Output 11/18/19 11/19/19 19:00 07:00 Intake Total 110.0 ml 110.0 ml Output Total 600 ml 200 ml Balance -490.0 ml -90.0 ml IV Total 110.0 ml 110.0 ml Output Urine Total 600 ml 200 ml # Voids 2 Laboratory Tests 11/19/19 10:35: White Blood Count 10.6, Red Blood Count 2.79L, Hemoglobin 8.0L, Hematocrit 24.9L , Mean Corpuscular Volume 89, Mean Corpuscular Hemoglobin 28.6, Mean Corpuscular Hemoglobin Concent 32.1, Red Cell Distribution Width 13.3, Platelet Count 308, Mean Platelet Volume 5.1L, Neutrophils (%) (Auto) 83.5H, Lymphocytes (%) (Auto) 5.0L, Monocytes (%) (Auto) 11.1H, Eosinophils (%) (Auto) 0.1, Basophils (%) (Auto) 0.3, Sodium Level 150H, Potassium Level 4.4, Chloride Level 112H, Carbon Dioxide Level 21, Anion Gap 17H, Blood Urea Nitrogen 69H, Creatinine 4.8H, Estimat Glomerular Filtration Rate 13.9, Glucose Level 246H, Calcium Level 8.5, Phosphorus Level 4.8, Total Bilirubin 0.5, Aspartate Amino Transf (AST/SGOT) 35, Alanine Aminotransferase (ALT/SGPT) 32, Alkaline Phosphatase 52, Total Protein 7.1, Albumin 2.2L, Globulin 4.9, Albumin/Globulin Ratio 0.4L Height (Feet): 5 Height (Inches): 10.00 Weight (Pounds): 200 General Appearance: no apparent distress, lethargic Cardiovascular: tachycardia Respiratory/Chest: decreased breath sounds Abdomen: distended Objective No change Rodrigue Mackenzie MD November 19, 2019 14:14
--- NOTE | 2019-11-19 14:55 | NUR ---
NURSE NOTES: Dr. Brown at patient's bedside inserted 10 [place] Dobhoff NGT via left nares. NGT secured in placed with silk tape. STAT KUB ordered to verify placement of NGT. Patient tolerated procedure, placed patient on 2L NC SpO2 99%, no SOB noted. Per Dr. Brown, notify him of KUB x-ray result prior to begining tube feeding. Noted. Will continue to monitor patient.
[2019-11-19 16:00] VITALS: BP 157/53
--- NOTE | 2019-11-19 16:41 | Diagnostic Imaging Report ---
Indication: Post nasogastric tube placement Technique: Supine view of the abdomen Comparison: 11/17/2019 Findings: There is a weighted nasogastric feeding tube, tip which projects at the level of a peripheral right lower lobe pulmonary bronchus. Hazy parenchymal opacities are seen at both lung bases. The bowel gas pattern is unremarkable. Impression: Intrapulmonary position of weighted nasogastric feeding tube. This critical value was phoned to patient's nurse Derek at the time of interpretation
--- NOTE | 2019-11-19 16:57 | NUR ---
NURSE NOTES: Radiology called nurse station, Dr. Vences spoke with this nurse and informed this nurse that newly inserted NGT is malposition in lungs, acknowledged. Immediately discontinued NGT, patient is on 2LNC SpO2 98% and no SOB noted. Will continue to monitor patient. Contacted and informed Dr. Brown of situation. Dr. Brown acknowledged and informed this nurse they will try NGT insertion again tomorrow. Noted. Charge nurse made aware. Will continue to monitor patient.
--- NOTE | 2019-11-19 17:30 | General Progress Note ---
Assessment/Plan Problem List: (1) Sepsis ICD Codes: A41.9 - Sepsis, unspecified organism SNOMED: 28967531 (2) Diabetes ICD Codes: E11.9 - Type 2 diabetes mellitus without complications SNOMED: 76985879 (3) BPH (benign prostatic hyperplasia) ICD Codes: N40.0 - Benign prostatic hyperplasia without lower urinary tract symptoms SNOMED: 260423748 (4) Anemia ICD Codes: D64.9 - Anemia, unspecified SNOMED: 078199943 (5) Acute on chronic renal failure ICD Codes: N17.9 - Acute kidney failure, unspecified; N18.9 - Chronic kidney disease, unspecified SNOMED: 426124706 (6) Fever ICD Codes: R50.9 - Fever, unspecified SNOMED: 189617680 Qualifiers: Qualified Codes: R50.9 - Fever, unspecified (7) Suspected COVID-19 virus infection ICD Codes: Z20.828 - Contact with and (suspected) exposure to other viral communicable diseases SNOMED: 711023348 (8) UTI (urinary tract infection) ICD Codes: N39.0 - Urinary tract infection, site not specified SNOMED: 39578786 Qualifiers: Qualified Codes: N39.0 - Urinary tract infection, site not specified (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 SNOMED: 80903961, 709262640 (10) Hypertension ICD Codes: I10 - Essential (primary) hypertension SNOMED: 30932804 Status: progressing Assessment/Plan: poor po intake ng tube anemia worsening azotemia consulted dr mares for bph since rn couldnt insert foely sepsis encephalopathy uti pna hs intermittent fever is covid positive pna renal failure is getting owrse hypernatremia dehydration anemia will discuss w renal re etiology for worsening renal function Subjective ROS Limited/Unobtainable: Yes Allergies: Coded Allergies: No Known Allergies (Unverified , 05/27/15) Objective Last 24 Hour Vital Signs Date Time Temp Pulse Resp B/P (MAP) Pulse Ox O2 Delivery O2 Flow Rate FiO2 11/19/19 16:30 2.0 11/19/19 16:00 94 11/19/19 16:00 98.2 100 18 157/53 (87) 97 11/19/19 13:26 134/61 11/19/19 12:00 98.6 96 18 134/61 (85) 100 11/19/19 12:00 92 11/19/19 12:00 2.0 11/19/19 09:47 98.6 11/19/19 09:00 Non-Rebreather 15.0 11/19/19 08:00 94 11/19/19 08:00 2.0 11/19/19 07:43 99.9 96 18 143/53 (83) 100 11/19/19 05:30 132/56 11/19/19 04:00 99.0 102 18 132/56 (81) 100 11/19/19 04:00 4.0 11/19/19 03:52 94 11/19/19 00:00 100.2 95 18 134/55 (81) 100 11/18/19 23:35 109 11/18/19 22:00 127/53 11/18/19 21:00 Non-Rebreather 15.0 11/18/19 21:00 100 140/72 11/18/19 20:26 87 20 100 Nasal Cannula 4.0 36 11/18/19 20:00 99.7 100 18 140/72 (94) 100 11/18/19 20:00 15.0 100 11/18/19 19:27 92 Intake and Output 11/18/19 11/19/19 19:00 07:00 Intake Total 110.0 ml 110.0 ml Output Total 600 ml 200 ml Balance -490.0 ml -90.0 ml IV Total 110.0 ml 110.0 ml Output Urine Total 600 ml 200 ml # Voids 2 Laboratory Tests 11/19/19 10:35: White Blood Count 10.6, Red Blood Count 2.79L, Hemoglobin 8.0L, Hematocrit 24.9L , Mean Corpuscular Volume 89, Mean Corpuscular Hemoglobin 28.6, Mean Corpuscular Hemoglobin Concent 32.1, Red Cell Distribution Width 13.3, Platelet Count 308, Mean Platelet Volume 5.1L, Neutrophils (%) (Auto) 83.5H, Lymphocytes (%) (Auto) 5.0L, Monocytes (%) (Auto) 11.1H, Eosinophils (%) (Auto) 0.1, Basophils (%) (Auto) 0.3, Sodium Level 150H, Potassium Level 4.4, Chloride Level 112H, Carbon Dioxide Level 21, Anion Gap 17H, Blood Urea Nitrogen 69H, Creatinine 4.8H, Estimat Glomerular Filtration Rate 13.9, Glucose Level 246H, Calcium Level 8.5, Phosphorus Level 4.8, Total Bilirubin 0.5, Aspartate Amino Transf (AST/SGOT) 35, Alanine Aminotransferase (ALT/SGPT) 32, Alkaline Phosphatase 52, Total Protein 7.1, Albumin 2.2L, Globulin 4.9, Albumin/Globulin Ratio 0.4L Height (Feet): 5 Height (Inches): 10.00 Weight (Pounds): 200 Aliyah Miller MD November 19, 2019 17:30
--- NOTE | 2019-11-19 18:21 | NUR ---
CASE MANAGEMENT: REVIEW SI: COVID-19 . PNA T 100.2 HR 102 RR 18 BP 157/53 SAT 97% NON-REBREATHER FLOW RATE 15.0 H/H 8.0/24.9 NA 150 BUN 69 CR 4.8 GLUCOSE 246 IS: ZOSYN IV Q12HR TYLENOL 500MG Q4HR PRN NGT FEEDING STEP DOWN UNIT STATUS DCP: PATIENT IS FROM [facility]. PATIENT WILL NEED SNF PLACEMENT.
--- NOTE | 2019-11-19 19:10 | NUR ---
NURSE NOTES: Received report from Derek Wiseman RN. Patient asleep, afebrile and has no respiratory distress noted. On NC at 2lpm with Sa02 of 100% pt tolerating well. With Right wrist 20g and right forearm 22 g IV lines intact, patent and asymptomatic. With colmenares catheter to urine bag intact and draining well. Needs were attended. Bed rails are up. Head of bed elevated
--- NOTE | 2019-11-19 19:16 | NUR ---
HAND-OFF: Report given to BENOIT Doty.
[2019-11-19 20:00] VITALS: BP 158/66
--- NOTE | 2019-11-19 20:14 | Psych Consult Progress Note ---
Psychiatry Progress Note Psychiatry Progress Note Subjective doing well no new changes. the outpt meds are continued. the pt is not agitated today the pt is confused however stable sleep adequate Medications Current Medications Medications (Trade) Dose Ordered Sig/Mayank Route PRN Reason Start Time Stop Time Status Last Admin Dose Admin Acetaminophen (Tylenol) 500 mg Q4H PRN ORAL Mild Pain/Temp >100.5 11/14/19 09:45 12/08/19 21:44 11/16/19 23:33 Acetaminophen (Tylenol) 650 mg Q4H PRN RECTAL Mild Pain (Pain Scale 1-3) 11/14/19 07:45 12/13/19 19:44 11/17/19 13:10 Aspirin (Ecotrin) 81 mg DAILY ORAL 11/14/19 09:00 12/27/19 08:59 11/15/19 08:57 Atorvastatin Calcium (Lipitor) 20 mg BEDTIME ORAL 11/14/19 21:00 02/10/20 20:59 11/16/19 21:28 Carvedilol (Coreg) 25 mg EVERY 12 HOURS ORAL 11/17/19 09:00 12/17/19 08:59 Clonidine HCl (Catapres TTS-1) 1 patch QWEEK TDERMAL 11/15/19 14:00 02/13/20 13:59 11/15/19 15:13 Clonidine HCl (Catapres Tab) 0.1 mg Q4H PRN ORAL For High Blood Pressure 11/14/19 07:15 02/09/20 15:11 11/16/19 23:32 Dextrose (Dextrose 50%) 25 ml Q30M PRN IV Hypoglycemia 11/14/19 07:15 02/06/20 21:44 Dextrose (Dextrose 50%) 50 ml Q30M PRN IV Hypoglycemia 11/14/19 07:15 02/06/20 21:44 Docusate Sodium (Colace) 100 mg THREE TIMES A DAY ORAL 11/16/19 09:00 12/16/19 08:59 Epoetin Mohit (Epoetin Mohit-EPBX(NON ESRD)) 6,000 unit MON-WED-SUN SUBQ 11/14/19 21:00 02/08/20 20:59 11/17/19 22:06 Finasteride (Proscar) 5 mg DAILY ORAL 11/14/19 09:00 02/07/20 08:59 11/15/19 08:56 Hydralazine HCl (Apresoline) 10 mg Q2HR PRN IV sbp>160 mmhg 11/17/19 00:15 02/15/20 00:14 11/17/19 03:54 Hydralazine HCl (Apresoline) 50 mg Q8HR ORAL 11/18/19 14:00 02/15/20 08:59 Insulin Aspart (NovoLOG) BEFORE MEALS AND HS SUBQ 11/14/19 11:30 02/07/20 22:59 11/16/19 12:06 Insulin Detemir (Levemir) 14 units Q24H SUBQ 11/14/19 09:00 02/07/20 08:59 11/19/19 08:06 Mirtazapine (Remeron) 7.5 mg BEDTIME ORAL 11/14/19 21:00 02/06/20 22:59 11/16/19 21:28 Nateglinide (Starlix) 120 mg THREE TIMES A DAY ORAL 11/14/19 09:00 12/09/19 08:59 11/15/19 14:05 Nifedipine (Procardia XL) 90 mg DAILY ORAL 11/15/19 09:00 12/15/19 08:59 11/15/19 08:56 Piperacillin Sod/ Tazobactam Sod 3.375 gm/Sodium Chloride 110 ml @ 27.5 mls/hr Q12H IVPB 11/17/19 13:00 11/24/19 12:59 11/19/19 12:21 Tamsulosin HCl (Flomax) 0.4 mg BID ORAL 11/14/19 09:00 12/09/19 20:59 11/15/19 08:57 Allergies: Coded Allergies: No Known Allergies (Unverified , 05/27/15) Objective Data Height (Feet): 5 Height (Inches): 10.00 Weight (Pounds): 200 General Appearance: WD/WN, no apparent distress, alert, confused Behavior Mannerisms: poor eye contact Mental Status Exam - Affect: blunted Mental Status Exam - Mood: no abnormalities Mental Status Exam - Thought P: disorganized Mental Status Exam - Suicidal: not present Assessment/Plan Status: progressing Assessment/Plan: ASSESSMENT: 1. Dementia. 2. Major depressive disorder. PLAN: 1. Continue the Remeron. 2. cont to monitor sxs 3. juan Lange and rn Alexis Frey MD November 19, 2019 20:14
[2019-11-19] MEDS: Atorvastatin 20mg tab ORAL SCH (20:26)
[2019-11-19] MEDS: Epoetin Alfa-EPBX (NON ESRD) 3000 units/ml vial SUBQ SCH (21:48)
--- NOTE | 2019-11-19 23:11 | Cardiology Progress Note ---
Assessment/Plan Assessment/Plan 1. Non-sustained ventricular tachycardia, keep Mg level at 2.1, continue coreg. 2. Elevated troponin I level in this patient likely acute HFpEF in view of CKD, HTN and age. Continue ASA and statins. 3. Severe with HERMINIO at 0.8 cm2. Avoid potent diuretics and afterload reducers. 4. DM, continue ASA and statins. 5. Hypertension secondary renal parenchymal disease, well controlled, continue hydralazine, nifedipine and clonidine patch. 6. CKD with MISAEL, creat up to 4.8. 7. COVID-19 pneumonia on Ceftriaxone. Subjective Subjective Sinus rhythm at rate of 98. Objective Last 24 Hour Vital Signs Date Time Temp Pulse Resp B/P (MAP) Pulse Ox O2 Delivery O2 Flow Rate FiO2 11/19/19 21:50 136/65 11/19/19 21:00 Non-Rebreather 15.0 11/19/19 20:25 98 158/66 11/19/19 20:00 95 11/19/19 20:00 2.0 11/19/19 20:00 99.1 98 18 158/66 (96) 97 11/19/19 16:30 2.0 11/19/19 16:00 94 11/19/19 16:00 98.2 100 18 157/53 (87) 97 11/19/19 13:26 134/61 11/19/19 12:00 98.6 96 18 134/61 (85) 100 11/19/19 12:00 92 11/19/19 12:00 2.0 11/19/19 09:47 98.6 11/19/19 09:00 Non-Rebreather 15.0 11/19/19 08:00 94 11/19/19 08:00 2.0 11/19/19 07:43 99.9 96 18 143/53 (83) 100 11/19/19 05:30 132/56 11/19/19 04:00 99.0 102 18 132/56 (81) 100 11/19/19 04:00 4.0 11/19/19 03:52 94 11/19/19 00:00 100.2 95 18 134/55 (81) 100 11/18/19 23:35 109 Intake and Output 11/18/19 11/19/19 19:00 07:00 Intake Total 110.0 ml 110.0 ml Output Total 600 ml 200 ml Balance -490.0 ml -90.0 ml IV Total 110.0 ml 110.0 ml Output Urine Total 600 ml 200 ml # Voids 2 2D Echo: EF 55%, HERMINIO 0.8cm2, RVSP 48, mod MR, Mild AR/SD, Grade I LVDD Laboratory Tests Test 11/19/19 10:35 White Blood Count 10.6 K/UL (4.8-10.8) Red Blood Count 2.79 M/UL (4.70-6.10) L Hemoglobin 8.0 G/DL (14.2-18.0) L Hematocrit 24.9 % (42.0-52.0) L Mean Corpuscular Volume 89 FL (80-99) Mean Corpuscular Hemoglobin 28.6 PG (27.0-31.0) Mean Corpuscular Hemoglobin Concent 32.1 G/DL (32.0-36.0) Red Cell Distribution Width 13.3 % (11.6-14.8) Platelet Count 308 K/UL (150-450) Mean Platelet Volume 5.1 FL (6.5-10.1) L Neutrophils (%) (Auto) 83.5 % (45.0-75.0) H Lymphocytes (%) (Auto) 5.0 % (20.0-45.0) L Monocytes (%) (Auto) 11.1 % (1.0-10.0) H Eosinophils (%) (Auto) 0.1 % (0.0-3.0) Basophils (%) (Auto) 0.3 % (0.0-2.0) Sodium Level 150 MMOL/L (136-145) H Potassium Level 4.4 MMOL/L (3.5-5.1) Chloride Level 112 MMOL/L (98-107) H Carbon Dioxide Level 21 MMOL/L (21-32) Anion Gap 17 mmol/L (5-15) H Blood Urea Nitrogen 69 mg/dL (7-18) H Creatinine 4.8 MG/DL (0.55-1.30) H Estimat Glomerular Filtration Rate 13.9 mL/min (>60) Glucose Level 246 MG/DL (74-106) H Calcium Level 8.5 MG/DL (8.5-10.1) Phosphorus Level 4.8 MG/DL (2.5-4.9) Total Bilirubin 0.5 MG/DL (0.2-1.0) Aspartate Amino Transf (AST/SGOT) 35 U/L (15-37) Alanine Aminotransferase (ALT/SGPT) 32 U/L (12-78) Alkaline Phosphatase 52 U/L (46-116) Total Protein 7.1 G/DL (6.4-8.2) Albumin 2.2 G/DL (3.4-5.0) L Globulin 4.9 g/dL Albumin/Globulin Ratio 0.4 (1.0-2.7) L Objective HEENT: Atraumatic and normocephalic. Anicteric. Pupils are equal, round, and reactive to light and accommodation. Extraocular muscles intact. NECK: JVP less than 5 cm. No carotid bruit. Carotid upstrokes 2+ bilaterally. CARDIOVASCULAR: Normal S1, S2. Regular rate and rhythm. 2/6 ESM at LSB, gallops, or rubs. PMI is at fourth intercostal space at the midclavicular line. LUNGS: Bibasilar crackles with diminished both lungs. ABDOMEN: Soft, nontender, nondistended. No hepatosplenomegaly. Positive bowel sounds. EXTREMITIES: No evidence of edema, clubbing, or cyanosis. Dick Payan MD November 19, 2019 23:11
[2019-11-20] VITALS: BP 139/52
--- NOTE | 2019-11-20 | NUR ---
NURSE NOTES: Patient was calm, asleep in bed and no signs of combativeness and aggression. Patient is qualified for restraints release. Skin assessment done and no new skin changes noted. ROM on BUE noted 3/5. Continue to monitor the patient
[2019-11-20] MEDS: Piperacillin/Tazobactam 3.375 GM in NS 110 ML IVPB SCH (00:25)
--- NOTE | 2019-11-20 01:32 | NUR ---
NURSE NOTES: Patient asleep in bed. No respiratory distress noted. No change of LOC noted. Pt tolerating NC at 2 lpm and showing SaO2 of 100%. Bed rails are up and locked. Continue to monitor
--- NOTE | 2019-11-20 02:00 | NUR ---
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 Patient was assisted to lie down for gown changed. Initiated non violent bilateral wrist soft restraints for safety and due to pulling device. Patient tolerated the procedure. HOB elevated and provided blanket for comfort. Bed rails are up. Bed in lowest position and locked. Continue to monitor patient.
[2019-11-20 04:00] VITALS: BP_SYST 124; BP_SYST 150; BP_DIAS 52; BP_DIAS 58
[2019-11-20 05:54] LABS: HEMATOCRIT 24.2 % (42.0-52.0); HEMOGLOBIN 7.8 G/DL (14.2-18.0); MEAN CORPUSCULAR VOLUME 89 FL (80-99); PLATELET COUNT 300 K/UL (150-450); RED BLOOD COUNT 2.71 M/UL (4.70-6.10); RED CELL DISTRIBUTION WIDTH 13.6 % (11.6-14.8); WHITE BLOOD COUNT 8.8 K/UL (4.8-10.8)
[2019-11-20] MEDS: HydrALAZINE 50mg tab ORAL SCH (06:00)
[2019-11-20] MEDS: NovoLOG Insulin Flexpen SUBQ SCH (06:05)
[2019-11-20 06:11] VITALS: BP 160/59
[2019-11-20 06:41] LABS: ALANINE AMINOTRANSFERASE 30 U/L (12-78); ALBUMIN 2.2 G/DL (3.4-5.0); ALBUMIN/GLOBULIN RATIO 0.4 (1.0-2.7); ALKALINE PHOSPHATASE 58 U/L (46-116); ANION GAP 20 mmol/L (5-15); ASPARTATE AMINO TRANSFERASE 30 U/L (15-37); BILIRUBIN,TOTAL 0.5 MG/DL (0.2-1.0); BLOOD UREA NITROGEN 79 mg/dL (7-18); CALCIUM 8.7 MG/DL (8.5-10.1); CARBON DIOXIDE 20 MMOL/L (21-32); CHLORIDE 113 MMOL/L (98-107); GAMMA GLUTAMYL TRANSPEPTIDASE 3 U/L (5-85); PHOSPHORUS 4.9 MG/DL (2.5-4.9); POTASSIUM 4.3 MMOL/L (3.5-5.1); SODIUM 152 MMOL/L (136-145)
--- NOTE | 2019-11-20 07:00 | NUR ---
NURSE NOTES: Patient is sleeping, no agitation noted. Patient no longer noted pulling out medical devices at this time. Bilateral soft wrist restraints discontinued. Will continue to monitor patient.
--- NOTE | 2019-11-20 07:05 | NUR ---
HAND-OFF: Report given to Derek Wiseman RN. Pt asleep in bed with no SBO noted.
--- NOTE | 2019-11-20 07:06 | NUR ---
NURSE NOTES: Received report from BENOIT Doty. Patient is resting in bed, in stable condition. No s/sx of SOB, breathing is even and unlabored, on 2LNC SpO2 98%. Patient is sleeping, observed no presence of pain or discomfort at this time. Bed is in lowest position, brakes engaged. Call light is kept within easy reach. Will continue to monitor patient.
--- NOTE | 2019-11-20 08:11 | Hematology/Onc Progress Note ---
Assessment/Plan Assessment/Plan Assess/Recs: # Pancytopenia -- initially with Anemia of chronic disease due to underlying chronic medical issues, multifactorial, also covie19 related, noted also with uti and sepsis --> Anemia workup has been ordered spep neg, ferritin is 117 --> No evidence of hemolysis is noted, peripheral smear has been reviewed. --> Hgb goal >7. Transfuse prn. --> on epogen --> Medications have been reviewed --> plt 136-->138-->139-->205 --> hgb 7.7-->8.1 -->8.7 --> wbc 3.6-->5-->8.9 --> abx: zosyn --> CT of abdomen pelvis without contrast read by radiology showed bladder thickening and possible cystitis prior admission --> as per id recs # [id number]++ Fever with cough --> covid+ --> iso --> as per id --> on ctx-->zosyn --> on bipap # MISAEL on ckd --> as per renal team # DM nephropathy # BPH # Hypokalemia --> replete with k as needed # CRTICAL STATUS, UNDERGOING CODE BLUE 11/19 --> 8:05a The timing of this note does not necessarily reflect the time of the patient was seen. Greatly appreciate consultation! Subjective Allergies: Coded Allergies: No Known Allergies (Unverified , 05/27/15) All Systems: reviewed and negative except above Subjective 11/09 labs reviewed, no bleeding, meds noted, seen by cards, cbc pendin 11/10 labs noted, no bleeding, serology neg, supportive care for covid19 11/11 bp high, hydralazine given overnight, on mirtaazapine, no changes 11/12 on a nrb, no bleeding, meds noted, no night sweats 11/13 blood was given yesterday, overnight, no traction, no night sweats 11/15 sdu, nrb, temp 101, labs reviewed, on cftx 11/16 labs are reviewed, no bleeding, fm changed to bipap, hgb 8.7 11/17 is on 15l nr, no bleeding, no night sweats, labs reviewed 11/18 sdu, labs pending, restraints, nc 4L 11/19 low bp, code was called was in pea, has been in code blue for last 15mins, 8:05a Objective Objective Current Medications Medications (Trade) Dose Ordered Sig/Mayank Route PRN Reason Start Time Stop Time Status Last Admin Dose Admin Acetaminophen (Tylenol) 500 mg Q4H PRN ORAL Mild Pain/Temp >100.5 11/14/19 09:45 12/08/19 21:44 11/16/19 23:33 Acetaminophen (Tylenol) 650 mg Q4H PRN RECTAL Mild Pain (Pain Scale 1-3) 11/14/19 07:45 12/13/19 19:44 11/17/19 13:10 Aspirin (Ecotrin) 81 mg DAILY ORAL 11/14/19 09:00 12/27/19 08:59 11/15/19 08:57 Atorvastatin Calcium (Lipitor) 20 mg BEDTIME ORAL 11/14/19 21:00 02/10/20 20:59 11/16/19 21:28 Carvedilol (Coreg) 25 mg EVERY 12 HOURS ORAL 11/17/19 09:00 12/17/19 08:59 Clonidine HCl (Catapres TTS-1) 1 patch QWEEK TDERMAL 11/15/19 14:00 02/13/20 13:59 11/15/19 15:13 Clonidine HCl (Catapres Tab) 0.1 mg Q4H PRN ORAL For High Blood Pressure 11/14/19 07:15 02/09/20 15:11 11/16/19 23:32 Dextrose (Dextrose 50%) 25 ml Q30M PRN IV Hypoglycemia 11/14/19 07:15 02/06/20 21:44 Dextrose (Dextrose 50%) 50 ml Q30M PRN IV Hypoglycemia 11/14/19 07:15 02/06/20 21:44 Docusate Sodium (Colace) 100 mg THREE TIMES A DAY ORAL 11/16/19 09:00 12/16/19 08:59 Epoetin Mohit (Epoetin Mohit-EPBX(NON ESRD)) 6,000 unit SUN-SUN-SUN SUBQ 11/14/19 21:00 02/08/20 20:59 11/19/19 21:48 Finasteride (Proscar) 5 mg DAILY ORAL 11/14/19 09:00 02/07/20 08:59 11/15/19 08:56 Hydralazine HCl (Apresoline) 10 mg Q2HR PRN IV sbp>160 mmhg 11/17/19 00:15 02/15/20 00:14 11/20/19 06:11 Hydralazine HCl (Apresoline) 50 mg Q8HR ORAL 11/18/19 14:00 02/15/20 08:59 Insulin Aspart (NovoLOG) BEFORE MEALS AND HS SUBQ 11/14/19 11:30 02/07/20 22:59 11/16/19 12:06 Insulin Detemir (Levemir) 14 units Q24H SUBQ 11/14/19 09:00 02/07/20 08:59 11/19/19 08:06 Mirtazapine (Remeron) 7.5 mg BEDTIME ORAL 11/14/19 21:00 02/06/20 22:59 11/16/19 21:28 Nateglinide (Starlix) 120 mg THREE TIMES A DAY ORAL 11/14/19 09:00 12/09/19 08:59 11/15/19 14:05 Nifedipine (Procardia XL) 90 mg DAILY ORAL 11/15/19 09:00 12/15/19 08:59 11/15/19 08:56 Piperacillin Sod/ Tazobactam Sod 3.375 gm/Sodium Chloride 110 ml @ 27.5 mls/hr Q12H IVPB 11/17/19 13:00 11/24/19 12:59 11/20/19 00:25 Tamsulosin HCl (Flomax) 0.4 mg BID ORAL 11/14/19 09:00 12/09/19 20:59 11/15/19 08:57 Last 24 Hour Vital Signs Date Time Temp Pulse Resp B/P (MAP) Pulse Ox O2 Delivery O2 Flow Rate FiO2 11/20/19 06:11 160/59 11/20/19 06:00 160/59 11/20/19 04:00 99.3 94 18 124/52 (76) 97 11/20/19 04:00 2.0 11/20/19 03:33 95 11/20/19 00:00 100.6 92 18 139/52 (81) 97 11/19/19 23:29 93 5/6/20 21:50 136/65 11/19/19 21:00 Non-Rebreather 15.0 11/19/19 20:25 98 158/66 11/19/19 20:00 95 11/19/19 20:00 2.0 11/19/19 20:00 99.1 98 18 158/66 (96) 97 11/19/19 16:30 2.0 11/19/19 16:00 94 11/19/19 16:00 98.2 100 18 157/53 (87) 97 11/19/19 13:26 134/61 11/19/19 12:00 98.6 96 18 134/61 (85) 100 11/19/19 12:00 92 11/19/19 12:00 2.0 11/19/19 09:47 98.6 11/19/19 09:00 Non-Rebreather 15.0 11/19/19 08:00 94 11/19/19 08:00 2.0 11/19/19 07:43 99.9 96 18 143/53 (83) 100 11/19/19 05:30 132/56 11/19/19 04:00 99.0 102 18 132/56 (81) 100 11/19/19 04:00 4.0 11/19/19 03:52 94 11/19/19 00:00 100.2 95 18 134/55 (81) 100 11/18/19 23:35 109 11/18/19 22:00 127/53 11/18/19 21:00 Non-Rebreather 15.0 11/18/19 21:00 100 140/72 11/18/19 20:26 87 20 100 Nasal Cannula 4.0 36 11/18/19 20:00 99.7 100 18 140/72 (94) 100 11/18/19 20:00 15.0 100 11/18/19 19:27 92 11/18/19 16:00 90 11/18/19 16:00 99.1 96 18 144/52 (82) 100 11/18/19 14:00 149/60 11/18/19 12:00 99.5 91 18 149/60 (89) 100 11/18/19 12:00 91 11/18/19 12:00 15.0 100 11/18/19 09:00 Non-Rebreather 15.0 Intake and Output 11/19/19 11/20/19 19:00 07:00 Intake Total 110.0 ml Output Total 300 ml 200 ml Balance -300 ml -90.0 ml IV Total 110.0 ml Output Urine Total 300 ml 200 ml Labs Test 11/17/19 08:41 11/18/19 04:10 11/19/19 10:35 11/20/19 05:10 Arterial Blood pH 7.277 (7.350-7.450) Arterial Blood Partial Pressure CO2 41.9 mmHg (35.0-45.0) Arterial Blood Partial Pressure O2 200.0 mmHg (75.0-100.0) Arterial Blood HCO3 19.1 mmol/L (22.0-26.0) Arterial Blood Oxygen Saturation 98.9 % (95-100) Arterial Blood Base Excess -7.2 (-2-2) Dc Test Positive White Blood Count 11.1 K/UL (4.8-10.8) 10.6 K/UL (4.8-10.8) 8.8 K/UL (4.8-10.8) Red Blood Count 2.96 M/UL (4.70-6.10) 2.79 M/UL (4.70-6.10) 2.71 M/UL (4.70-6.10) Hemoglobin 8.7 G/DL (14.2-18.0) 8.0 G/DL (14.2-18.0) 7.8 G/DL (14.2-18.0) Hematocrit 26.1 % (42.0-52.0) 24.9 % (42.0-52.0) 24.2 % (42.0-52.0) Mean Corpuscular Volume 88 FL (80-99) 89 FL (80-99) 89 FL (80-99) Mean Corpuscular Hemoglobin 29.3 PG (27.0-31.0) 28.6 PG (27.0-31.0) 28.9 PG (27.0-31.0) Mean Corpuscular Hemoglobin Concent 33.1 G/DL (32.0-36.0) 32.1 G/DL (32.0-36.0) 32.4 G/DL (32.0-36.0) Red Cell Distribution Width 13.2 % (11.6-14.8) 13.3 % (11.6-14.8) 13.6 % (11.6-14.8) Platelet Count 280 K/UL (150-450) 308 K/UL (150-450) 300 K/UL (150-450) Mean Platelet Volume 5.3 FL (6.5-10.1) 5.1 FL (6.5-10.1) 4.9 FL (6.5-10.1) Neutrophils (%) (Auto) % (45.0-75.0) 83.5 % (45.0-75.0) % (45.0-75.0) Lymphocytes (%) (Auto) % (20.0-45.0) 5.0 % (20.0-45.0) % (20.0-45.0) Monocytes (%) (Auto) % (1.0-10.0) 11.1 % (1.0-10.0) % (1.0-10.0) Eosinophils (%) (Auto) % (0.0-3.0) 0.1 % (0.0-3.0) % (0.0-3.0) Basophils (%) (Auto) % (0.0-2.0) 0.3 % (0.0-2.0) % (0.0-2.0) Differential Total Cells Counted 100 Neutrophils % (Manual) 92 % (45-75) Lymphocytes % (Manual) 5 % (20-45) Monocytes % (Manual) 3 % (1-10) Eosinophils % (Manual) 0 % (0-3) Basophils % (Manual) 0 % (0-2) Band Neutrophils 0 % (0-8) Platelet Estimate Adequate Platelet Morphology Normal Hypochromasia 2+ Anisocytosis 1+ Spherocytes 1+ Sodium Level 148 MMOL/L (136-145) 150 MMOL/L (136-145) 152 MMOL/L (136-145) Potassium Level 4.8 MMOL/L (3.5-5.1) 4.4 MMOL/L (3.5-5.1) 4.3 MMOL/L (3.5-5.1) Chloride Level 110 MMOL/L (98-107) 112 MMOL/L (98-107) 113 MMOL/L (98-107) Carbon Dioxide Level 19 MMOL/L (21-32) 21 MMOL/L (21-32) 20 MMOL/L (21-32) Anion Gap 20 mmol/L (5-15) 17 mmol/L (5-15) 20 mmol/L (5-15) Blood Urea Nitrogen 50 mg/dL (7-18) 69 mg/dL (7-18) 79 mg/dL (7-18) Creatinine 3.3 MG/DL (0.55-1.30) 4.8 MG/DL (0.55-1.30) 6.0 MG/DL (0.55-1.30) Estimat Glomerular Filtration Rate 21.5 mL/min (>60) 13.9 mL/min (>60) 10.8 mL/min (>60) Glucose Level 215 MG/DL (74-106) 246 MG/DL (74-106) 279 MG/DL (74-106) Calcium Level 8.8 MG/DL (8.5-10.1) 8.5 MG/DL (8.5-10.1) 8.7 MG/DL (8.5-10.1) Phosphorus Level 4.8 MG/DL (2.5-4.9) 4.9 MG/DL (2.5-4.9) Total Bilirubin 0.5 MG/DL (0.2-1.0) 0.5 MG/DL (0.2-1.0) Aspartate Amino Transf (AST/SGOT) 35 U/L (15-37) 30 U/L (15-37) Alanine Aminotransferase (ALT/SGPT) 32 U/L (12-78) 30 U/L (12-78) Alkaline Phosphatase 52 U/L (46-116) 58 U/L (46-116) Total Protein 7.1 G/DL (6.4-8.2) 7.1 G/DL (6.4-8.2) Albumin 2.2 G/DL (3.4-5.0) 2.2 G/DL (3.4-5.0) Globulin 4.9 g/dL 4.9 g/dL Albumin/Globulin Ratio 0.4 (1.0-2.7) 0.4 (1.0-2.7) Prothrombin Time 10.9 SEC (9.30-11.50) Prothromb Time International Ratio 1.0 (0.9-1.1) Activated Partial Thromboplast Time 37 SEC (23-33) Magnesium Level 2.3 MG/DL (1.8-2.4) Gamma Glutamyl Transpeptidase 3 U/L (5-85) C-Reactive Protein, Quantitative 33.1 mg/dL (0.00-0.90) Pro-B-Type Natriuretic Peptide 29438 pg/mL (0-125) Height (Feet): 5 Height (Inches): 10.00 Weight (Pounds): 200 Objective vitals: noted ENT: dry mucus membranes Neck: limited range of motion Respiratory: no breath sounds Cardiovascular: no heart sounds Gastrointestinal: normal bowel sounds, soft, tenderness - suprapubic Musculoskeletal: decreased range of motion Neurologic: normal inspection Psychiatric: normal inspection Skin: normal inspection, normal color Cesar Singh MD November 20, 2019 08:11
--- NOTE | 2019-11-20 08:13 | Nephrology Progress Note ---
Assessment/Plan Problem List: (1) Acute on chronic renal failure Assessment: Serum creatinine rising (2) BPH (benign prostatic hyperplasia) (3) Anemia (4) Sepsis (5) COVID-19 virus detected Assessment Mr. Melton is admitted with pneumonia and UTI and exposure to COVID-19 virus, and the test is positive From renal standpoint of view: Acute on chronic renal failure: Serum creatinine has risen from baseline of 1.6- 2.5 Diabetic nephropathy BPH Anemia Hypertension Plan November 7: 7.30 am Patient need urgent hemodialysis for acute renal failure today. Attempts will be made to get the consent DEBORA, however if not successful and non -tunneled dialysis catheter should be inserted by IR 8.30 am Discussed with RN "Derek" Patient was well on change of the shift. He then became hypotensive, bradycardic, went to asystole was coded and then at 8:10 AM Positive for COVID-19 November 6: Serum creatinine keeps rising Lasix drip was discontinued Blood pressure remained stable Patient has acute renal failure superimposed on chronic renal insufficiency Further rise in serum creatinine will be a reason to initiate dialysis treatment Renal parameters ordered for tomorrow Meanwhile medication list reviewed and no nephrotoxic identified November 5: Patient started on diuresis yesterday due to CHF symptoms Serum creatinine up to 3.3 today We will order a Hitchcock catheter Will adjust blood pressure medication Will discuss with Dr. Westfall Previously: Serum creatinine pito , but seems to be stabilizing and declining, Creatinine down to 2.7 Kidney ultrasound results noted adjust blood pressure medication as the blood pressure has been fluctuating Slow hydration and 1 bolus of albumin Kidney ultrasound results noted Monitor renal parameters Avoid nephrotoxic's Flomax twice daily Antibiotics per ID Will review the 2D echocardiogram and ultrasound which was done previously Per orders Objective Objective Last 24 Hour Vital Signs Date Time Temp Pulse Resp B/P (MAP) Pulse Ox O2 Delivery O2 Flow Rate FiO2 11/20/19 06:11 160/59 11/20/19 06:00 160/59 11/20/19 04:00 99.3 94 18 124/52 (76) 97 11/20/19 04:00 2.0 11/20/19 03:33 95 11/20/19 00:00 100.6 92 18 139/52 (81) 97 11/19/19 23:29 93 11/19/19 21:50 136/65 11/19/19 21:00 Non-Rebreather 15.0 11/19/19 20:25 98 158/66 11/19/19 20:00 95 11/19/19 20:00 2.0 11/19/19 20:00 99.1 98 18 158/66 (96) 97 11/19/19 16:30 2.0 11/19/19 16:00 94 11/19/19 16:00 98.2 100 18 157/53 (87) 97 11/19/19 13:26 134/61 11/19/19 12:00 98.6 96 18 134/61 (85) 100 11/19/19 12:00 92 11/19/19 12:00 2.0 11/19/19 09:47 98.6 11/19/19 09:00 Non-Rebreather 15.0 Intake and Output 11/19/19 11/20/19 19:00 07:00 Intake Total 110.0 ml Output Total 300 ml 200 ml Balance -300 ml -90.0 ml IV Total 110.0 ml Output Urine Total 300 ml 200 ml Laboratory Tests 11/19/19 10:35: White Blood Count 10.6, Red Blood Count 2.79L, Hemoglobin 8.0L, Hematocrit 24.9L , Mean Corpuscular Volume 89, Mean Corpuscular Hemoglobin 28.6, Mean Corpuscular Hemoglobin Concent 32.1, Red Cell Distribution Width 13.3, Platelet Count 308, Mean Platelet Volume 5.1L, Neutrophils (%) (Auto) 83.5H, Lymphocytes (%) (Auto) 5.0L, Monocytes (%) (Auto) 11.1H, Eosinophils (%) (Auto) 0.1, Basophils (%) (Auto) 0.3, Sodium Level 150H, Potassium Level 4.4, Chloride Level 112H, Carbon Dioxide Level 21, Anion Gap 17H, Blood Urea Nitrogen 69H, Creatinine 4.8H, Estimat Glomerular Filtration Rate 13.9, Glucose Level 246H, Calcium Level 8.5, Phosphorus Level 4.8, Total Bilirubin 0.5, Aspartate Amino Transf (AST/SGOT) 35, Alanine Aminotransferase (ALT/SGPT) 32, Alkaline Phosphatase 52, Total Protein 7.1, Albumin 2.2L, Globulin 4.9, Albumin/Globulin Ratio 0.4L 11/20/19 05:10: White Blood Count 8.8, Red Blood Count 2.71L, Hemoglobin 7.8L, Hematocrit 24.2L , Mean Corpuscular Volume 89, Mean Corpuscular Hemoglobin 28.9, Mean Corpuscular Hemoglobin Concent 32.4, Red Cell Distribution Width 13.6, Platelet Count 300, Mean Platelet Volume 4.9L, Neutrophils (%) (Auto) , Lymphocytes (%) ( Auto) , Monocytes (%) (Auto) , Eosinophils (%) (Auto) , Basophils (%) (Auto) , Sodium Level 152H, Potassium Level 4.3, Chloride Level 113H, Carbon Dioxide Level 20L, Anion Gap 20H, Blood Urea Nitrogen 79H, Creatinine 6.0H, Estimat Glomerular Filtration Rate 10.8, Glucose Level 279H, Calcium Level 8.7, Phosphorus Level 4.9, Total Bilirubin 0.5, Aspartate Amino Transf (AST/SGOT) 30 , Alanine Aminotransferase (ALT/SGPT) 30, Alkaline Phosphatase 58, Total Protein 7.1, Albumin 2.2L, Globulin 4.9, Albumin/Globulin Ratio 0.4L, Neutrophils % (Manual) [Pending], Lymphocytes % (Manual) [Pending], Platelet Estimate [Pending], Platelet Morphology [Pending], Prothrombin Time 10.9, Prothromb Time International Ratio 1.0, Activated Partial Thromboplast Time 37H , Magnesium Level 2.3, Gamma Glutamyl Transpeptidase 3L, C-Reactive Protein, Quantitative 33.1H, Pro-B-Type Natriuretic Peptide 13741B Height (Feet): 5 Height (Inches): 10.00 Weight (Pounds): 200 Objective No change Rodrigue Mackenzie MD November 20, 2019 08:13
--- NOTE | 2019-11-20 08:20 | NUR ---
NURSE NOTES: At 0735 hours, per potline monitor, patient noted with low heart rate of 45 bpm on cardiac rn. This nurse assessed patient at bedside. Patient did not respond to sternal rub or shaking. Obtained blood pressure of 93/45 HR 35, SpO2 77% on 2L NC and trending down. Faint pulse palpated, called to nurse station for KICK PLATE INSTALLER. While awaiting KICK PLATE INSTALLER, pulse was no longer palpable, informed nurse station to call COVID-19 code blue at 0740 hours. CPR initiated immediately. COVID-19 code blue team arrived to room, performed code blue. Code blue unsuccessful. Patient pronounced at [address] Arvizu. Noted. Charge nurse and pilot plant supervisor aware. Dr. Miller made aware of situation. This nurse spoke with Dr. Miller via telephone, Dr. Miller informed this nurse they will inform patient's family of patient expiring. Noted.
--- NOTE | 2019-11-20 08:47 | Emergency Room Report ---
History of Present Illness General Chief Complaint: Fever Source: Patient, Medical Record Present Illness Allergies: Coded Allergies: No Known Allergies (Unverified , 05/27/15) COVID-19 Screening Contact w/high risk pt: No Recent Travel to affected area: No Experienced COVID-19 symptoms?: Yes COVID-19 symptoms experienced: Fever (T>100.4F or >38C) Nursing Documentation-[facility] Past Medical History: No History, Except For Hx Cardiac Problems: Yes Hx Hypertension: Yes Hx Diabetes: Yes Hx Cancer: No Hx Gastrointestinal Problems: No Hx Dialysis: No - Chronic Kidney Disease, UTI Hx Neurological Problems: No - difficulty in walking Physical Exam Vital Signs Date Time Temp Pulse Resp B/P (MAP) Pulse Ox O2 Delivery O2 Flow Rate FiO2 11/16/19 07:48 74 11/16/19 08:00 97.9 18 144/63 (90) 98 11/16/19 09:00 Non-Rebreather 15.0 11/18/19 08:00 100 Procedures CPR/Code Blue CPR/Code Blue Narrative Please see CODE BLUE sheet for details of the CODE BLUE. Intubation Intubation : Consent: Emergent Tube Size (cm): 7.5 Breath Sounds after Intubation: equal Intubation Complications: no complications Post Intubation Xray: No Attempts: One Patient Tolerated: Well Complications: None Medical Decision Making Diagnostic Impression: Primary Impression: COVID-19 ER Course I was called to the stepdown unit for CODE BLUE. On my arrival CPR was in progress. Patient was a confirmed coronavirus patient per nursing report. ACLS was continued on my arrival. Patient received multiple doses of epinephrine in addition to bicarb and calcium. Patient had been defibrillated once prior to my arrival. Patient was intubated by me, patient was coded for at least 20 minutes without return of spontaneous circulation. Patient was pronounced at 810 am Last Vital Signs Date Time Temp Pulse Resp B/P (MAP) Pulse Ox O2 Delivery O2 Flow Rate FiO2 11/20/19 06:11 160/59 11/20/19 04:00 99.3 94 18 97 11/20/19 04:00 2.0 11/19/19 21:00 Non-Rebreather 11/18/19 20:26 36 Disposition: Condition: Referrals: Aliyah Miller MD (PCP) Jagdeep Arvizu M.D. November 20, 2019 08:47
--- NOTE | 2019-11-20 08:57 | NUR ---
NURSE NOTES: this nurse called [facility]. Per [facility] patient is not candidate and [facility] will not follow case. Referral ID [id number]. Noted. Addendum: 11/20/19 at 1657 by ORLIN GUERRERO RN NURSE NOTES: Spoke with [facility] human resources representative Jeremie.
[2019-11-20] MEDS: Carvedilol 25mg Tab ORAL SCH (09:00)
[2019-11-20] MEDS: Levemir Flexpen SUBQ SCH (09:00)
[2019-11-20] MEDS: Aspirin EC 81mg tab ORAL SCH (09:00)
[2019-11-20] MEDS: Docusate 100mg/10ml Liq ORAL SCH (09:00)
[2019-11-20] MEDS: Tamsulosin 0.4mg cap ORAL SCH (09:00)
--- NOTE | 2019-11-20 09:09 | NUR ---
NURSE NOTES: Academic Computing Director office was called by this nurse. Spoke with brandi Flores clinical pathologist office will not follow case. Noted.
--- NOTE | 2019-11-20 11:43 | NUR ---
NURSE NOTES: This nurse called patient's son, [place]. Per [place] was informed of patient's passing by Dr. Miller. Mr. Melton informed this nurse that they will contact [employer], , will pick-up father's remains. Elocution Teacher made aware.
--- NOTE | 2019-11-20 12:45 | NUR ---
NURSE NOTES: Patient's remains taken to morgue, accompanied by information security consultant. Patient's belongings double bagged and also placed in morgue. Lemon Picker made aware.
--- NOTE | 2019-11-21 12:32 | Discharge Summary ---
Discharge Summary Discharge Summary _ SUMMARY DATE OF ADMISSION: 11/08/2019 DATE OF EXPIRATION : 11/20/2019 REASON FOR ADMISSION: 89 years old male with past medical history of hypertension, diabetes mellitus, chronic kidney disease, resident of [facility] facility, was sent for evaluation of COVID-19 due to fever and cough x 1 day. Upon evaluation fever 101.3. Laboratory work-up revealed no leukocytosis, hemoglobin 9.6 ,hematocrit 29. Lymphopenia. Urinalysis with +3 protein ,+3 leukocyte esterase ,pyuria and many bacteria. BUN 24, creatinine 2.5. Lactic acid 0.7. Glucose 171. Troponin 0.062 pro BNP 2085. EKG revealed sinus rhythm, no acute ischemic changes. Stable LFT. Lipase 130. Chest x-ray demonstrated borderline cardiomegaly with mild vascular congestion. In emergency department patient pancultured , swabbed for the COVID-19 and admitted for further management for suspected COVID-19 infection ,pneumonia, UTI and fever . CONSULTANTS: spool maker Dr. Payan pulmonary Dr. Westfall ID specialist Dr. Viktor Capone GI specialist Dr. Brown reefer engineer Dr. Mackenzie professional nurse/oncologist Dr. Singh psychiatrist urologist [facility] COURSE: Patient admitted to [facility]. Supplemental oxygen provided and titrated to keep pulse oximetry above 92%. Pulmonary toilet provided. Patient started on empiric antibiotics. Blood culture negative. Urine culture revealed growth of E. coli. SARS -CoV-2 by PCR on 11/07 was detected. Repeated SARS -CoV-2 by PCR on and 11/17 was positive as well. Patient remained in isolation. Antibiotic provided as per ID recommendation. Patient was followed -up with chest x-ray. Chest x-ray showed increased bilateral peripheral hazy infiltrate. Pulse oximetry initially was stable on room air ,then patient required Venturi mask and later nonrebreather mask. Echocardiogram demonstrated preserved ejection fraction of 55% with mild left ventricular hypertrophy. No evidence of pericardial effusion. No evidence of wall motion abnormality. Severe aortic stenosis noted. Right ventricular systolic pressure of 48 consistent with moderate pulmonary hypertension. Mild to moderate tricuspid regurgitation and moderate mitral regurgitation. Second troponin 0.1, initial troponin 0.062. Per spool maker , elevated troponin in this patient was likely due to acute congestive heart failure in view of chronic kidney disease, hypertension and age. Aspirin and statin continued. Telemetry showed evidence of nonsustained ventricular tachycardia. Beta-blockade continued. Magnesium level was closely monitored to keep level at 2.1. Blood pressure was managed with the current multiple antihypertensive regimen. Renal ultrasound demonstrated no hydronephrosis. Bilateral normal kidney echogenicity. Renal parameters and electrolytes were closely monitored. Patient started on Lasix drip as per reefer engineer. Electrolytes corrected as needed. Unfortunately serum creatinine kept rising. Lasix drip was discontinued.. Medication review identified no nephrotoxic medications. Urologist seen and evaluated patient , and inserted 14 Thai caude catheter , which was inflated and left to gravity drainage. Counts were closely monitored . At some point patient had pancytopenia. Patient required transfusion of 1 unit of packed red blood cells . Anemia work-up was consistent with anemia of chronic disease . No evidence of hemolysis Nutrition provided via NG tube , aspiration precautions maintained. Psychiatrist followed. Psychiatric medication regimen was optimized as per psychiatrist recommendation. Creatinine was trending up . Per reefer engineer , patient had acute on chronic ( due to diabetic nephropathy ) renal failure. On 11/18 creatinine -4.6. Per reefer engineer patient may probably need hemodialysis. BMP ordered for am. CODE BLUE was called on 11/19 . ACLS protocol initiated . Patient was intubated . unfortunately all resuscitative efforts appeared to be futile. Patient continued to demonstrate cardiopulmonary unresponsiveness. Patient was pronounced at 8:10 AM 11/19 . Cause of : cardiopulmonary arrest , likely secondary to COVID-19 infection FINAL DIAGNOSES: Confirmed COVID-19 pneumonia E. coli UTI Acute on chronic renal failure s/p cardiopulmonary arrest Acute respiratory failure, requiring intubation Elevated troponin likely due to acute congestive heart failure Diabetic nephropathy Severe aortic stenosis Diabetes mellitus Hypertension BPH Anemia Pancytopenia Nonsustained ventricular tachycardia Dementia Major depressive disorder I have been assigned to dictate discharge summary for this account. I was not involved in the patient's management. 11/08/2019 Vee Lugo NP November 21, 2019 12:32
== END 2019-11-20 16:14 | disposition expired | DRG 871 ==
LOC: EDBD 10:24 → EMR 10:49 → EDBEDREQ 13:12 → EDBEDREQSVC 13:27 → EDBEDREQ 13:28 → 2E 19:32 → 2W 11-13 22:43
PROC: 0BH17EZ Insertion of Endotracheal Airway into Trachea, Via Natural or Artificial Opening (ICD-10-PCS; principal; 2019-11-20)
DX: A41.89 Other specified sepsis (principal); U07.1 COVID-19; J12.89 Other viral pneumonia; I50.31 Acute diastolic (congestive) heart failure; J96.00 Acute respiratory failure, unspecified whether with hypoxia or hypercapnia; I13.0 Hypertensive heart and chronic kidney disease with heart failure and stage 1 through stage 4 chronic kidney disease, or unspecified chronic kidney disease; N17.9 Acute kidney failure, unspecified; N39.0 Urinary tract infection, site not specified; D61.818 Other pancytopenia; I47.2 Ventricular tachycardia; N18.9 Chronic kidney disease, unspecified; I35.0 Nonrheumatic aortic (valve) stenosis; N40.0 Benign prostatic hyperplasia without lower urinary tract symptoms; E11.22 Type 2 diabetes mellitus with diabetic chronic kidney disease; F03.90 Unspecified dementia, unspecified severity, without behavioral disturbance, psychotic disturbance, mood disturbance, and anxiety; F32.9 Major depressive disorder, single episode, unspecified; E87.6 Hypokalemia; R13.10 Dysphagia, unspecified; K21.9 Gastro-esophageal reflux disease without esophagitis; H40.9 Unspecified glaucoma; I34.0 Nonrheumatic mitral (valve) insufficiency; I36.1 Nonrheumatic tricuspid (valve) insufficiency
CPT/HCPCS: 36415; 36600; 71045; 74018; 76770; 80048; 80053; 80061; 81003; 82550; 82553; 82607; 82728; 82746; 82803; 82962; 82977; 83036; 83540; 83550; 83605; 83615; 83690; 83735; 83880; 84100; 84300; 84443; 84484; 84550; 85007; 85025; 85379; 85610; 85730; 86140; 86850; 86900; 86901; 86920; 87040; 87081; 87086; 87181; 87635; 89050; 93005; 93306; 94664; 96361; 96365; 96367; 96375; 99285; J1815; J7030; J8499; S5561